=== PATIENT | female | born 1940 | race American Indian/Alaskan Native ===

== ENCOUNTER 2017-04-27 16:05 | Emergency (ER) | payer MEDICARE ==
[2017-04-27 17:29] LABS: Basophils % (Auto) 0.3 % (0.0-1.8); Eosinophils % (Auto) 9.3 % (0.0-4.3); Hematocrit 27.9 % (30.3-42.9); Hemoglobin 8.9 gm/dl (10.1-14.3); Mean Corpuscular HGB Conc 32 % (30-34); Mean Corpuscular Hemoglobin 26 pg (28-32); Mean Corpuscular Volume 81 fl (79-97); Platelet Count 155 K/mm3 (140-440); Red Blood Count 3.43 M/mm3 (3.65-5.03); Red Cell Distribution Width 16.4 % (13.2-15.2); White Blood Count 4.3 K/mm3 (4.5-11.0)
[2017-04-27 17:32] LABS: Albumin/Globulin Ratio 1.6 %; BUN/Creatinine Ratio 16.66; Bilirubin,Total 0.2 mg/dL (0.1-1.2); Calcium 8.2 mg/dL (8.4-10.2); Chloride 106.5 mmol/L (98-107); Potassium 5.1 mmol/L (3.6-5.0); Total Protein 6.5 g/dL (6.3-8.2)
[2017-04-27 17:41] LABS: INR 1.04 (0.87-1.13); Partial Thromboplastin Time 28.9 Sec. (24.2-36.6)
[2017-04-27] MEDS ORDERED: ULTRAM PO ONE (18:59)
[2017-04-27] MEDS ORDERED: ULTRAM ONE (18:59)
[2017-04-27] MEDS ORDERED: KIONEX PO ONE (21:00)
--- NOTE | 2017-04-27 21:13 | Emergency Department Report ---
ED Medical Clearance HPI - General Chief complaint: Medical Clearance Stated complaint: GENERAL SICKNESS Time Seen by Provider: 04/27/17 18:59 Source: EMS Mode of arrival: Ambulatory - History of Present Illness Initial comments: 76 yo female with PMHX of CKD, HTN, COPD CHF into the emergency department for medical clearance. States she was at her PCPs office early today when she was informed that her potassium was " high" and states she does not recall the exact number, she was told to follow-up in the emergency room as soon as possible. Currently patient has no complaints. Patient denies fevers/chills, chest pain, shortness of breath, abdominal pain, nausea/vomiting/diarrhea. Home medications: Home Medications Medication Instructions Recorded Confirmed Last Taken RX: Mirtazapine [Remeron] 15 mg PO QHS PRN 04/27/17 04/27/17 Unknown RX: traMADol [Ultram 50 MG tab] 50 mg PO PRN PRN 04/27/17 04/27/17 Unknown Previous Rx's Medication Instructions Recorded Last Taken Type RX: ALBUTEROL NEB's [Proventil 2.5 mg IH Q4HRT PRN #30 nebu 04/19/17 Unknown Rx 0.083% NEBS] RX: Budesonide [Pulmicort Respules] 0.25 mg IH Q12HRT #1 box 04/19/17 Unknown Rx RX: Pantoprazole [Protonix TAB] 40 mg PO QDAY #30 tablet 04/19/17 04/26/17 Rx Sodium Polystyrene Sulfonate 30 gm PO DAILY #2 powd.pack 04/27/17 Unknown Rx [Kalexate] Allergies/Adverse reactions: Allergies Allergy/AdvReac Type Severity Reaction Status Date / Time aspirin Allergy Hives Verified 04/16/17 13:55 Penicillins Allergy Hives Verified 04/16/17 13:55 Sulfa (Sulfonamide Allergy Hives Verified 04/16/17 13:55 Antibiotics) ED Review of Systems ROS: Stated complaint: GENERAL SICKNESS Other details as noted in HPI Constitutional: denies: chills, fever Eyes: denies: eye pain, eye discharge, vision change ENT: denies: ear pain, throat pain Respiratory: denies: cough, shortness of breath, wheezing Cardiovascular: denies: chest pain, palpitations Endocrine: no symptoms reported Gastrointestinal: denies: abdominal pain, nausea, diarrhea Genitourinary: denies: urgency, dysuria, discharge Musculoskeletal: denies: back pain, joint swelling, arthralgia Skin: denies: rash, lesions Neurological: denies: headache, weakness, paresthesias Psychiatric: denies: anxiety, depression Hematological/Lymphatic: denies: easy bleeding, easy bruising ED Past Medical Hx - Past Medical History Hx Hypertension: Yes Hx CVA: Yes (x 2) Hx Heart Attack/AMI: Yes (2010) Hx Congestive Heart Failure: No Hx Diabetes: No Hx Renal Disease: Yes Hx Arthritis: Yes Hx Asthma: Yes Hx COPD: Yes Hx HIV: No Additional medical history: Chronic Bronchitis - Surgical History Past Surgical History?: Yes Hx Coronary Stent: No Hx Open Heart Surgery: No Hx Pacemaker: Yes Hx Internal Defibrillator: No Hx Cholecystectomy: No Hx Appendectomy: No Hx Breast Surgery: No Additional Surgical History: Left Knee Surgery , demand pacemaker (90's). Hyst. catarac removal in both eyes - Social History Smoking Status: Former Smoker Substance Use Type: None - Medications Home Medications: Home Medications Medication Instructions Recorded Confirmed Last Taken Type RX: ALBUTEROL NEB's [Proventil 2.5 mg IH Q4HRT PRN #30 nebu 04/19/17 04/27/17 Unknown Rx 0.083% NEBS] RX: Budesonide [Pulmicort Respules] 0.25 mg IH Q12HRT #1 box 04/19/17 04/27/17 Unknown Rx RX: Pantoprazole [Protonix TAB] 40 mg PO QDAY #30 tablet 04/19/17 04/27/1704/26 Rx RX: Mirtazapine [Remeron] 15 mg PO QHS PRN 04/27/17 04/27/17 Unknown History RX: traMADol [Ultram 50 MG tab] 50 mg PO PRN PRN 04/27/17 04/27/17 Unknown History Sodium Polystyrene Sulfonate 30 gm PO DAILY #2 powd.pack 04/27/17 Unknown Rx [Kalexate] ED Physical Exam - General Limitations: No Limitations General appearance: alert, in no apparent distress - Head Head exam: Present: atraumatic, normocephalic - Eye Eye exam: Present: normal appearance - ENT ENT exam: Present: mucous membranes moist - Neck Neck exam: Present: normal inspection - Respiratory Respiratory exam: Present: normal lung sounds bilaterally. Absent: respiratory distress - Cardiovascular Cardiovascular Exam: Present: regular rate, normal rhythm. Absent: systolic murmur, diastolic murmur, rubs, gallop - GI/Abdominal GI/Abdominal exam: Present: soft, normal bowel sounds - Extremities Exam Extremities exam: Present: normal inspection - Back Exam Back exam: Present: normal inspection - Neurological Exam Neurological exam: Present: alert, oriented X3 - Psychiatric Psychiatric exam: Present: normal affect, normal mood - Skin Skin exam: Present: warm, dry, intact, normal color. Absent: rash ED Course Vital Signs 04/27/17 04/27/17 04/27/17 16:14 16:16 16:18 Temperature Pulse Rate 80 82 85 Respiratory 19 13 18 Rate Blood Pressure Blood Pressure [Right] O2 Sat by Pulse 97 98 Oximetry 04/27/17 04/27/17 04/27/17 16:20 16:22 16:24 Temperature Pulse Rate 84 82 88 Respiratory 17 22 26 H Rate Blood Pressure Blood Pressure [Right] O2 Sat by Pulse 97 98 97 Oximetry 04/27/17 04/27/17 04/27/17 16:26 16:28 16:30 Temperature Pulse Rate 80 82 76 Respiratory 18 18 26 H Rate Blood Pressure Blood Pressure [Right] O2 Sat by Pulse 97 97 98 Oximetry 04/27/17 04/27/17 04/27/17 16:32 16:34 16:36 Temperature Pulse Rate 77 76 94 H Respiratory 20 21 24 Rate Blood Pressure Blood Pressure [Right] O2 Sat by Pulse 97 98 Oximetry 04/27/17 04/27/17 04/27/17 16:38 16:40 16:41 Temperature Pulse Rate 80 86 Respiratory 13 19 24 Rate Blood Pressure 115/54 115/54 Blood Pressure [Right] O2 Sat by Pulse 95 99 98 Oximetry 04/27/17 04/27/17 04/27/17 16:42 16:44 16:46 Temperature Pulse Rate 85 74 Respiratory 23 26 H 28 H Rate Blood Pressure 115/54 115/54 115/54 Blood Pressure [Right] O2 Sat by Pulse 99 99 98 Oximetry 04/27/17 04/27/17 04/27/17 16:48 16:50 16:52 Temperature Pulse Rate 99 H 121 H 97 H Respiratory 21 29 H 27 H Rate Blood Pressure 115/54 115/54 115/54 Blood Pressure [Right] O2 Sat by Pulse 98 97 99 Oximetry 04/27/17 04/27/17 04/27/17 16:54 16:56 16:58 Temperature Pulse Rate 73 75 Respiratory 22 24 17 Rate Blood Pressure 115/54 115/54 115/54 Blood Pressure [Right] O2 Sat by Pulse 99 99 99 Oximetry 04/27/17 04/27/17 04/27/17 17:00 17:01 17:02 Temperature Pulse Rate 75 72 75 Respiratory 19 22 17 Rate Blood Pressure 115/54 103/51 103/51 Blood Pressure [Right] O2 Sat by Pulse 99 100 99 Oximetry 04/27/17 04/27/17 04/27/17 17:04 17:06 17:08 Temperature Pulse Rate 72 74 Respiratory 26 H 19 36 H Rate Blood Pressure 103/51 103/51 103/51 Blood Pressure [Right] O2 Sat by Pulse 99 99 98 Oximetry 04/27/17 04/27/17 04/27/17 17:10 17:12 17:14 Temperature Pulse Rate Respiratory 13 19 20 Rate Blood Pressure 115/54 115/54 115/54 Blood Pressure [Right] O2 Sat by Pulse 99 100 100 Oximetry 04/27/17 04/27/17 04/27/17 17:16 17:18 17:20 Temperature Pulse Rate Respiratory 21 24 25 H Rate Blood Pressure 115/54 115/54 115/54 Blood Pressure [Right] O2 Sat by Pulse 100 100 100 Oximetry 04/27/17 04/27/17 04/27/17 17:22 17:24 17:25 Temperature 98.4 F Pulse Rate Respiratory 23 17 Rate Blood Pressure 115/54 115/54 Blood Pressure [Right] O2 Sat by Pulse 99 100 Oximetry 04/27/17 04/27/17 04/27/17 17:26 17:28 17:30 Temperature Pulse Rate Respiratory 22 23 23 Rate Blood Pressure 115/54 115/54 115/54 Blood Pressure [Right] O2 Sat by Pulse 100 100 100 Oximetry 04/27/17 04/27/17 04/27/17 17:32 17:34 17:36 Temperature Pulse Rate 144 H Respiratory 22 22 30 H Rate Blood Pressure 115/54 115/54 115/54 Blood Pressure [Right] O2 Sat by Pulse 100 100 99 Oximetry 04/27/17 04/27/17 04/27/17 17:38 17:40 17:42 Temperature Pulse Rate Respiratory 19 20 23 Rate Blood Pressure 115/54 115/54 115/54 Blood Pressure [Right] O2 Sat by Pulse 100 100 100 Oximetry 04/27/17 04/27/17 04/27/17 17:44 17:46 17:48 Temperature Pulse Rate Respiratory 21 21 22 Rate Blood Pressure 115/54 115/54 115/54 Blood Pressure [Right] O2 Sat by Pulse 100 100 99 Oximetry 04/27/17 04/27/17 04/27/17 17:50 17:52 17:54 Temperature Pulse Rate 92 H 82 90 Respiratory 18 24 30 H Rate Blood Pressure 115/54 115/54 115/54 Blood Pressure [Right] O2 Sat by Pulse 100 100 98 Oximetry 04/27/17 04/27/17 04/27/17 17:56 17:58 18:48 Temperature Pulse Rate 88 94 H 86 Respiratory 23 28 H 25 H Rate Blood Pressure 115/54 115/54 121/70 Blood Pressure [Right] O2 Sat by Pulse 99 98 100 Oximetry 04/27/17 04/27/17 04/27/17 18:50 18:52 18:54 Temperature Pulse Rate 89 82 Respiratory 22 29 H 25 H Rate Blood Pressure 121/70 121/70 121/70 Blood Pressure [Right] O2 Sat by Pulse 95 98 97 Oximetry 04/27/17 04/27/17 04/27/17 18:56 18:58 19:00 Temperature Pulse Rate 101 H 78 Respiratory 27 H 32 H 38 H Rate Blood Pressure 121/70 121/70 106/48 Blood Pressure [Right] O2 Sat by Pulse 100 99 99 Oximetry 04/27/17 04/27/17 04/27/17 19:02 19:04 19:06 Temperature Pulse Rate 115 H 81 Respiratory 38 H 21 26 H Rate Blood Pressure 106/48 103/51 103/51 Blood Pressure [Right] O2 Sat by Pulse 99 98 100 Oximetry 04/27/17 04/27/17 04/27/17 19:08 19:10 19:12 Temperature Pulse Rate 81 79 78 Respiratory 25 H 24 24 Rate Blood Pressure 103/51 103/51 103/51 Blood Pressure [Right] O2 Sat by Pulse 100 100 100 Oximetry 04/27/17 04/27/17 04/27/17 19:14 19:16 19:20 Temperature Pulse Rate 79 88 82 Respiratory 23 18 23 Rate Blood Pressure 103/51 103/51 103/51 Blood Pressure [Right] O2 Sat by Pulse 100 99 98 Oximetry 04/27/17 04/27/17 04/27/17 19:22 19:24 19:28 Temperature Pulse Rate 82 83 92 H Respiratory 19 25 H 24 Rate Blood Pressure 103/51 103/51 103/51 Blood Pressure [Right] O2 Sat by Pulse 99 99 99 Oximetry 04/27/17 04/27/17 04/27/17 19:30 19:32 19:34 Temperature Pulse Rate 95 H 96 H 88 Respiratory 16 22 25 H Rate Blood Pressure 103/51 103/51 103/51 Blood Pressure [Right] O2 Sat by Pulse 100 99 99 Oximetry 04/27/17 04/27/17 04/27/17 19:36 19:38 19:40 Temperature Pulse Rate 91 H 102 H 100 H Respiratory 19 19 21 Rate Blood Pressure 103/51 103/51 103/51 Blood Pressure [Right] O2 Sat by Pulse 99 99 99 Oximetry 04/27/17 04/27/17 04/27/17 19:42 19:44 19:46 Temperature Pulse Rate 101 H 98 H 97 H Respiratory 22 24 22 Rate Blood Pressure 103/51 103/51 103/51 Blood Pressure [Right] O2 Sat by Pulse 98 98 99 Oximetry 04/27/17 04/27/17 04/27/17 19:48 19:50 19:52 Temperature Pulse Rate 89 90 92 H Respiratory 26 H 25 H 19 Rate Blood Pressure 103/51 103/51 103/51 Blood Pressure [Right] O2 Sat by Pulse 100 99 99 Oximetry 04/27/17 04/27/17 04/27/17 19:54 19:56 19:58 Temperature Pulse Rate 90 88 86 Respiratory 25 H 17 16 Rate Blood Pressure 103/51 103/51 103/51 Blood Pressure [Right] O2 Sat by Pulse 100 90 99 Oximetry 04/27/17 04/27/17 04/27/17 20:00 20:02 20:03 Temperature Pulse Rate 91 H 91 H Respiratory 24 17 20 Rate Blood Pressure 103/51 103/51 Blood Pressure [Right] O2 Sat by Pulse 99 99 Oximetry 04/27/17 04/27/17 04/27/17 20:04 20:06 20:08 Temperature Pulse Rate 87 93 H 86 Respiratory 18 22 18 Rate Blood Pressure 126/62 126/62 126/62 Blood Pressure [Right] O2 Sat by Pulse 97 99 98 Oximetry 04/27/17 04/27/17 04/27/17 20:12 20:14 20:16 Temperature Pulse Rate 94 H 92 H 93 H Respiratory 17 15 14 Rate Blood Pressure 126/62 126/62 126/62 Blood Pressure [Right] O2 Sat by Pulse 98 98 98 Oximetry 04/27/17 04/27/17 04/27/17 20:18 20:20 20:22 Temperature Pulse Rate 93 H 87 90 Respiratory 16 12 17 Rate Blood Pressure 126/62 126/62 126/62 Blood Pressure [Right] O2 Sat by Pulse 97 96 97 Oximetry 04/27/17 04/27/17 04/27/17 20:24 20:26 20:28 Temperature Pulse Rate 92 H 93 H 95 H Respiratory 16 15 17 Rate Blood Pressure 126/62 126/62 126/62 Blood Pressure [Right] O2 Sat by Pulse 94 94 93 Oximetry 04/27/17 04/27/17 04/27/17 20:30 21:20 21:28 Temperature 98.7 F Pulse Rate 93 H 86 94 H Respiratory 22 20 16 Rate Blood Pressure 126/62 Blood Pressure 115/60 97/46 [Right] O2 Sat by Pulse 91 98 98 Oximetry - Reevaluation(s) Reevaluation #1: 04/27/17 21:09 Dr Melendez nephrology states pt labs are at baseline, he will order blood work for her to have repeated outpt on Sunday, patient agrees to this plan 04/27/17 21:12 ED Medical Decision Making - Lab Data Result diagrams: 04/27/17 16:39 04/27/17 16:39 - EKG Data -: EKG Interpreted by Me EKG shows normal: sinus rhythm (86), axis (NEEGATIVE ), intervals (QTC:471), QRS complexes, ST-T waves (no change) - EKG Data When compared to previous EKG there are: no significant change, other (Right BBB ) - Radiology Data Radiology results: image reviewed - Medical Decision Making 76 yo female with chronic kidney disease, COPD presenting to ED for lab check. Pt potassium is slightly elevated therefor will start with several days of Kayexyalte. Pt will return for 72 hour lab recheck. She has no complaints and is stable for dc home ED Disposition Clinical Impression: Hyperkalemia, CKD (chronic kidney disease) stage 3, GFR 30-59 ml/min Disposition: DC-01 TO HOME OR SELFCARE Is pt being admited?: No Does the pt Need Aspirin: No Condition: Stable Instructions: Hyperkalemia (ED) Additional Instructions: Please follow up in outpatient lab at [facility] on this Sunday to repeat chemistry panel. Dr. Melendez has ordered this for you. Prescriptions: Sodium Polystyrene Sulfonate [Kalexate] 30 gm PO DAILY #2 powd.pack Referrals: PRIMARY CAREMD [Primary Care Provider] - 2-3 Days BRAD MELENDEZ MD [Staff Physician] - 2-3 Days Forms: Work/School Release Form(ED)
[2017-04-27 21:29] VITALS: BP 97/46
== END 2017-04-27 21:40 | disposition home or self-care (01) ==
LOC: ED 16:05
DX: E87.5 Hyperkalemia (principal); I12.9 Hypertensive chronic kidney disease with stage 1 through stage 4 chronic kidney disease, or unspecified chronic kidney disease; N18.3 Chronic kidney disease, stage 3 (moderate); I25.2 Old myocardial infarction; M19.90 Unspecified osteoarthritis, unspecified site; J45.909 Unspecified asthma, uncomplicated; J44.9 Chronic obstructive pulmonary disease, unspecified; J42 Unspecified chronic bronchitis; I50.9 Heart failure, unspecified; Z95.0 Presence of cardiac pacemaker; Z87.891 Personal history of nicotine dependence; Z88.6 Allergy status to analgesic agent; Z88.0 Allergy status to penicillin; Z88.2 Allergy status to sulfonamides
CPT/HCPCS: 36415; 80053; 82140; 83735; 83880; 85025; 85610; 85730; 86850; 86900; 86901; 93005; 93010

== ENCOUNTER 2017-05-14 11:29 | Outpatient (CLI) | payer MEDICARE ==
[2017-05-14 12:07] LABS: BUN/Creatinine Ratio 10.76; Calcium 8.8 mg/dL (8.4-10.2); Chloride 103.4 mmol/L (98-107); Potassium 5.1 mmol/L (3.6-5.0)
== END 2017-05-14 11:30 | disposition home or self-care (01) ==
LOC: LAB 11:29
PROVIDERS: ATTEND Internal Medicine Nephrology
DX: I12.9 Hypertensive chronic kidney disease with stage 1 through stage 4 chronic kidney disease, or unspecified chronic kidney disease (principal); I50.9 Heart failure, unspecified; N18.3 Chronic kidney disease, stage 3 (moderate); D63.1 Anemia in chronic kidney disease; E78.00 Pure hypercholesterolemia, unspecified; I48.91 Unspecified atrial fibrillation; J44.9 Chronic obstructive pulmonary disease, unspecified; J45.909 Unspecified asthma, uncomplicated; F32.9 Major depressive disorder, single episode, unspecified; F41.9 Anxiety disorder, unspecified; Z87.891 Personal history of nicotine dependence
CPT/HCPCS: 36415; 80048

== ENCOUNTER 2017-07-26 11:00 | Outpatient (CLI) | payer MEDICARE ==
[2017-07-26 11:30] LABS: Calcium 8.5 mg/dL (8.4-10.2); Chloride 103.8 mmol/L (98-107); Potassium 4.3 mmol/L (3.6-5.0)
== END 2017-07-26 11:01 | disposition home or self-care (01) ==
LOC: LAB 11:00
PROVIDERS: ATTEND Internal Medicine Nephrology
DX: I13.0 Hypertensive heart and chronic kidney disease with heart failure and stage 1 through stage 4 chronic kidney disease, or unspecified chronic kidney disease (principal); N18.3 Chronic kidney disease, stage 3 (moderate); I50.9 Heart failure, unspecified; J44.9 Chronic obstructive pulmonary disease, unspecified; E78.00 Pure hypercholesterolemia, unspecified; Z87.891 Personal history of nicotine dependence
CPT/HCPCS: 36415; 80048

== ENCOUNTER 2017-08-07 08:15 | Inpatient (IN) | payer MEDICARE ==
--- NOTE | 2017-08-07 09:19 | XRay Report ---
PORTABLE CHEST INDICATION: Shortness of breath. COMPARISON: 04/16/2017 FINDINGS: Portable, frontal chest radiograph demonstrates normal cardiomediastinal silhouette. Slightly prominent lung markings centrally. Stable aortic knob calcifications, left-sided dual chamber pacemaker and demineralized bones with few degenerative changes. CONCLUSION: No acute chest process or significant interval change, as described. Thank you for the opportunity to participate in this patient's care.
[2017-08-07 09:32] LABS: Basophils % (Auto) 0.6 % (0.0-1.8); Eosinophils % (Auto) 10.7 % (0.0-4.3); Hematocrit 28.6 % (30.3-42.9); Hemoglobin 9.3 gm/dl (10.1-14.3); Mean Corpuscular HGB Conc 33 % (30-34); Mean Corpuscular Hemoglobin 27 pg (28-32); Mean Corpuscular Volume 83 fl (79-97); Platelet Count 161 K/mm3 (140-440); Red Blood Count 3.46 M/mm3 (3.65-5.03); Red Cell Distribution Width 15.6 % (13.2-15.2); White Blood Count 3.3 K/mm3 (4.5-11.0)
[2017-08-07 09:42] LABS: Anion Gap 16 mmol/L; BUN/Creatinine Ratio 10; Blood Urea Nitrogen 19 mg/dL (7-17); Calcium 8.8 mg/dL (8.4-10.2); Carbon Dioxide 31 mmol/L (22-30); Chloride 100.3 mmol/L (98-107); Glucose 99 mg/dL (65-100); Potassium 4.6 mmol/L (3.6-5.0); Sodium 143 mmol/L (137-145)
[2017-08-07] MEDS ORDERED: MORPHINE IV ONE (11:02)
[2017-08-07] MEDS ORDERED: DUONEB *Not for PRN Use IH ONE (11:02)
--- NOTE | 2017-08-07 11:25 | Emergency Department Report ---
HPI - General Chief Complaint: Dyspnea/Respdistress Time Seen by Provider: 08/07/17 10:52 - HPI HPI: This is a 77 year-old female presents to the emergency department by EMS from home with the complaints of a headache with dizziness and some shortness of breath. She says that she has a "splitting headache" to the left side of the head and towards the back that has been going on intermittently for the past 3 months but more recently for the past 2 or 3 days. Today she felt as if she was dizzy and weak but denies any vision change , slurred speech, chest pain or any other neurological deficits. She says that her shortness of breath is acute on chronic and most likely related to her COPD. She uses 3 L oxygen via nasal cannula 24 hours a day. She tried taking a tramadol for her headache and/or symptoms without any relief. She has a past medical history of chronic kidney disease, hypertension, COPD, CHF, previous CVA 2 without residual deficits, coronary artery disease with previous [place]. Her primary care physician is Dr. Julio Wyatt. No recent travel or sick contacts at home. ED Past Medical Hx - Past Medical History Previous Medical History?: Yes Hx Hypertension: Yes Hx CVA: Yes (x 2) Hx Heart Attack/AMI: Yes (2009) Hx Congestive Heart Failure: No Hx Diabetes: No Hx Renal Disease: Yes Hx Arthritis: Yes Hx Asthma: Yes Hx COPD: Yes Hx HIV: No Additional medical history: Chronic Bronchitis - Surgical History Past Surgical History?: Yes Hx Coronary Stent: No Hx Open Heart Surgery: No Hx Pacemaker: Yes Hx Internal Defibrillator: No Hx Cholecystectomy: No Hx Appendectomy: No Hx Breast Surgery: No Additional Surgical History: Left Knee Surgery , demand pacemaker (90's). Hyst. catarac removal in both eyes - Social History Smoking Status: Former Smoker Substance Use Type: None - Medications Home Medications: Home Medications Medication Instructions Recorded Confirmed Last Taken Type ALBUTEROL NEB's [Proventil 0.083% 2.5 mg IH Q4HRT PRN #30 nebu 04/19/17 Unknown Rx NEBS] Budesonide [Pulmicort Respules] 0.25 mg IH Q12HRT #1 box 04/19/17 08/07/17 Unknown Rx Pantoprazole [Protonix TAB] 40 mg PO QDAY #30 tablet 04/19/17 08/07/17 04/26/17 Rx Mirtazapine [Remeron] 30 mg PO QHS PRN 04/27/17 08/07/17 Unknown History traMADol [Ultram 50 MG tab] 50 - 100 mg PO BID PRN 04/27/17 08/07/17 Unknown History Sodium Polystyrene Sulfonate 8 tsp PO Q48H 08/07/17 08/07/17 Unknown History [Sodium Polystyrene Sulfonate] ED Review of Systems ROS: Stated complaint: NIRAV Other details as noted in HPI Comment: All other systems reviewed and negative Constitutional: denies: chills, fever Eyes: denies: eye pain, eye discharge, vision change ENT: denies: ear pain, throat pain Respiratory: cough, shortness of breath, wheezing Cardiovascular: denies: chest pain, edema Gastrointestinal: denies: abdominal pain, nausea, diarrhea Genitourinary: denies: urgency, dysuria, discharge Musculoskeletal: denies: back pain, joint swelling, arthralgia Skin: denies: rash, lesions Neurological: headache, other (dizziness). denies: numbness, paresthesias, confusion Physical Exam - Physical Exam Vital Signs: Vital Signs 08/07/17 08/07/17 08/07/17 09:21 09:25 09:27 Temperature 97.9 F Pulse Rate 88 88 Respiratory 17 Rate Blood Pressure Blood Pressure 128/63 [Left] O2 Sat by Pulse 96 95 Oximetry 08/07/17 08/07/17 08/07/17 09:30 10:00 10:30 Temperature Pulse Rate Respiratory Rate Blood Pressure 126/67 114/79 131/77 Blood Pressure [Left] O2 Sat by Pulse Oximetry Physical Exam: GENERAL: The patient is well-developed well-nourished. HENT: Normocephalic. Atraumatic. Patient has moist mucous membranes. EYES: Extraocular motions are intact. Pupils equal reactive to light bilaterally. There is some fatigable horizontal nystagmus. NECK: Supple. Trachea is midline. CHEST/LUNGS: Clear to auscultation. There is no respiratory distress noted. HEART/CARDIOVASCULAR: Regular. There is no tachycardia. There is no gallop rub or murmur. ABDOMEN: Abdomen is soft, nontender. Patient has normal bowel sounds. There is no abdominal distention. SKIN: Skin is warm and dry. NEURO: The patient is awake, alert, and oriented. The patient is cooperative. The patient has no focal neurologic deficits. The patient has normal speech. Cranial nerves II through XII grossly intact. No pronator drift. No dysmetria. MUSCULOSKELETAL: There is no tenderness or deformity. There is no limitation range of motion. There is no evidence of acute injury. ED Course Vital Signs 08/07/17 08/07/17 08/07/17 09:21 09:25 09:27 Temperature 97.9 F Pulse Rate 88 88 Respiratory 17 Rate Blood Pressure Blood Pressure 128/63 [Left] O2 Sat by Pulse 96 95 Oximetry 08/07/17 08/07/17 08/07/17 09:30 10:00 10:30 Temperature Pulse Rate Respiratory Rate Blood Pressure 126/67 114/79 131/77 Blood Pressure [Left] O2 Sat by Pulse Oximetry ED Medical Decision Making - Lab Data Result diagrams: 08/07/17 08:58 08/07/17 08:58 - EKG Data -: EKG Interpreted by Me EKG shows normal: sinus rhythm, axis (LAD), intervals, QRS complexes (RBBB), ST- T waves Rate: normal - EKG Data When compared to previous EKG there are: no significant change Interpretation: unchanged when compared t (04/2017) - Radiology Data Radiology results: report reviewed, image reviewed interpreted by me: There is some hyperinflation of the lungs and flattening of the diaphragms. No obvious pneumonia or pleural effusions. CT scan of head without IV contrast: History: Headache. Findings: The ventricles are normal in size and midline in location. Bilateral basal ganglia calcification without interval change. Bilateral lacunar infarcts. No interval change. No evidence acute ischemia, hemorrhage or mass. No extra-axial fluid collection. Normal brainstem and cerebellum. Impression: No acute intracranial abnormality. - Medical Decision Making 77-year-old female presents with some shortness of breath as well as a headache and some dizziness. On physical exam she does not appear to have any focal, motor or sensory deficits and her cranial nerves are intact. CT does not show any bleed, shift, mass or any acute process. She has some anemia, renal sufficiency and these labs appear consistent with previous visits. She does have an elevated an equivocal d-dimer so a ventilation perfusion scan was done that was low probability for pulmonary embolus. The patient continues to complain of the headache and dizziness despite pain medication. For this reason she will be admitted to hospital for further evaluation and treatment and has been accepted for admission by the hospitalist, Dr. Smith. - Differential Diagnosis TIA, brain bleed, vertigo, COPD, PE, asthma Critical Care Time: No Critical care attestation.: If time is entered above; I have spent that time in minutes in the direct care of this critically ill patient, excluding procedure time. ED Disposition Clinical Impression: Dizziness, COPD exacerbation Headache Qualifiers: Headache type: unspecified Headache chronicity pattern: unspecified pattern Intractability: intractable Qualified Code(s): R51 - Headache Chronic kidney disease Qualifiers: Chronic kidney disease stage: unspecified stage Qualified Code(s): N18.9 - Chronic kidney disease, unspecified Disposition: OP ADMIT IP TO THIS HOSP Is pt being admited?: Yes Condition: Stable
--- NOTE | 2017-08-07 12:20 | Cat Scan Report ---
CT scan of head without IV contrast: History: Headache. Findings: The ventricles are normal in size and midline in location. Bilateral basal ganglia calcification without interval change. Bilateral lacunar infarcts. No interval change. No evidence acute ischemia, hemorrhage or mass. No extra-axial fluid collection. Normal brainstem and cerebellum. Impression: No acute intracranial abnormality.
--- NOTE | 2017-08-07 14:33 | History and Physical Report ---
History of Present Illness Chief complaint: Its hard for me to breathe History of present illness: 77 YO Female with HTN, CVA, OH, OA, Asthma, COPD on 3L Home Oxygen, CHF, presents to ED for evaluation. Pt states that she has experienced shortness of breath for the past 2 weeks with worsening symptoms over the past 2 days. Pt acknowledges productive cough of clear sputum with increased sputum production. Pt symptoms not relieved with increased oxygen, and breathing treatments. Pt also complains of a splitting headache for the past 3 months with worsening symptoms over the past 3 days. Pt states that the pain 1s 6-8/10, localized to the left side of her head, intermittent and is associated with dizziness and weakness. Pt denies vision changes, or sudden vision loss in either eye, trauma , BRBPR, Syncope, Lacrimation, oloss of bowel/bladder continence, vomiting, Fall , recent ill contacts, or skin rashes. Past History Past Medical History: acute OH, arthritis, COPD, heart failure, hypertension, stroke Past Surgical History: cataract removal, hysterectomy, total knee replacement, Other (Pacemaker, ) Social history: . denies: smoking, alcohol abuse, prescription drug abuse, IV drug use Family history: diabetes, hypertension Medications and Allergies Allergies Allergy/AdvReac Type Severity Reaction Status Date / Time aspirin Allergy Hives Verified 04/16/17 13:55 Penicillins Allergy Hives Verified 04/16/17 13:55 Sulfa (Sulfonamide Allergy Hives Verified 04/16/17 13:55 Antibiotics) Home Medications Medication Instructions Recorded Confirmed Last Taken Type ALBUTEROL NEB's [Proventil 0.083% 2.5 mg IH Q4HRT PRN #30 nebu 04/19/17 Unknown Rx NEBS] Budesonide [Pulmicort Respules] 0.25 mg IH Q12HRT #1 box 04/19/17 08/07/17 Unknown Rx Pantoprazole [Protonix TAB] 40 mg PO QDAY #30 tablet 04/19/17 08/07/17 04/26/17 Rx Mirtazapine [Remeron] 30 mg PO QHS PRN 04/27/17 08/07/17 Unknown History traMADol [Ultram 50 MG tab] 50 - 100 mg PO BID PRN 04/27/17 08/07/17 Unknown History Sodium Polystyrene Sulfonate 8 tsp PO Q48H 08/07/17 08/07/17 Unknown History [Sodium Polystyrene Sulfonate] Review of Systems Constitutional: other (headache), no weight loss, no weight gain, no fever, no chills, no sweats Ears, nose, mouth and throat: no ear pain, no ear discharge, no tinnitis, no decreased hearing, no nose pain, no nasal congestion, no nasal discharge, no sinus pressure, no sinus pain Breasts: no change in shape, no swelling, no mass Cardiovascular: shortness of breath, no chest pain, no orthopnea, no palpitations, no rapid/irregular heart beat, no edema, no syncope Respiratory: cough, cough with sputum, excessive sputum, shortness of breath, no hemoptysis Gastrointestinal: no abdominal pain, no nausea, no vomiting, no diarrhea Genitourinary Female: no pelvic pain, no flank pain, no menorrhagia, no dysuria , no urinary frequency, no urgency Rectal: no pain, no incontinence, no bleeding Musculoskeletal: no neck stiffness, no neck pain, no shooting arm pain, no arm numbness/tingling, no low back pain Integumentary: no rash, no pruritis, no redness, no sores Neurological: no transient paralysis, no paralysis, no weakness, no parathesias , no numbness, no tingling, no seizures, no syncope, no tremors Psychiatric: no anxiety, no memory loss, no change in sleep habits, no sleep disturbances, no insomnia, no hypersomnia, no change in appetite, no change in libido Endocrine: no cold intolerance, no heat intolerance, no polyphagia, no excessive thirst, no polydipsia, no polyuria, no nocturia Hematologic/Lymphatic: no easy bruising, no easy bleeding Allergic/Immunologic: no urticaria, no allergic rhinitis, no wheezing Exam - Constitutional Vitals: Temp Pulse Resp BP Pulse Ox 97.9 F 87 17 128/79 98 08/07/17 09:25 08/07/17 14:13 08/07/17 14:13 08/07/17 14:00 08/07/17 14:13 General appearance: Present: mild distress - EENT Eyes: Present: PERRL ENT: hearing intact, clear oral mucosa - Neck Neck: Present: supple, normal ROM - Respiratory Respiratory effort: labored Respiratory: bilateral: diminished - Extremities Extremities: pulses symmetrical, No edema Extremity abnormal: edema Peripheral Pulses: within normal limits - Abdominal General gastrointestinal: Present: soft, non-tender, non-distended, normal bowel sounds Female genitourinary: Present: normal - Integumentary Integumentary: Present: clear, warm, dry - Musculoskeletal Musculoskeletal: gait normal, strength equal bilaterally - Psychiatric Psychiatric: appropriate mood/affect, intact judgment & insight - Neurologic Neurologic: CNII-XII intact, moves all extremities Results - Labs CBC & Chem 7: 08/07/17 08:58 08/07/17 08:58 Labs: Abnormal lab results 08/07/17 08/07/17 08/07/17 Range/Units 08:58 08:58 11:16 WBC 3.3 L (4.5-11.0) K/mm3 RBC 3.46 L (3.65-5.03) M/mm3 Hgb 9.3 L (10.1-14.3) gm/dl Hct 28.6 L (30.3-42.9) % MCH 27 L (28-32) pg RDW 15.6 H (13.2-15.2) % [place] % (Auto) 7.9 H (0.0-7.3) % Eos % (Auto) 10.7 H (0.0-4.3) % Lymph # 0.7 L (1.2-5.4) K/mm3 D-Dimer 749.90 H (0-234) ng/mlDDU Carbon Dioxide 31 H (22-30) mmol/L BUN 19 H (7-17) mg/dL Creatinine 1.9 H (0.7-1.2) mg/dL Assessment and Plan - Patient Problems (1) Acute and chronic respiratory failure Current Visit: No Status: Acute Qualifiers: Respiratory failure complication: hypoxia Qualified Code(s): J96.21 - Acute and chronic respiratory failure with hypoxia Plan to address problem: supplemental oxygen, nebs, aspiration precautions, IV abx, steroids, NIPPV as clinically indicated. (2) COPD exacerbation Onset Date: 06/11/16 Current Visit: Yes Status: Acute Plan to address problem: IV steroid, IV abx, supportive care, pulmonary toilet, (3) Acute renal failure (ARF) Onset Date: 06/11/16 Current Visit: No Status: Acute Qualifiers: Acute renal failure type: unspecified Qualified Code(s): N17.9 - Acute kidney failure, unspecified Plan to address problem: IVF resuscitation, supportive care, monitor uop q shift, repeat bmp (4) HTN (hypertension) Current Visit: Yes Status: Acute Qualifiers: Hypertension type: H Plan to address problem: monitor BP q shift, continue current therapy (5) CHF (congestive heart failure) Current Visit: Yes Status: Acute Qualifiers: Congestive heart failure type: diastolic Congestive heart failure chronicity: acute on chronic Qualified Code(s): I50.33 - Acute on chronic diastolic (congestive) heart failure Plan to address problem: fluid restriction, remote telemetry, low sodium diet, monitor uop q shift to ensure negative fluid balance. (6) DVT prophylaxis Current Visit: No Status: Acute
--- NOTE | 2017-08-07 14:36 | Nuclear Medicine Report ---
VENTILATION PERFUSION SCAN INDICATION: Shortness of breath, elevated d-dimer. COMPARISON: None similar. FINDINGS: VQ scan performed in anterior, posterior, lateral and oblique projections. 5 mCi of technetium 99m MAA was used for the perfusion assessment while 15 millicuries of Xenon 133 was utilized for the ventilation portion of the study. Ventilation images demonstrate slightly heterogeneous radiotracer distribution toward the lung bases. Mild air trapping towards the lung bases also noted. The perfusion is also heterogeneous, though correlating with the ventilation without large lobar or definite segmental defects. Available chest radiograph from earlier today demonstrates no acute chest process. CONCLUSION: Low probability exam for pulmonary embolism. COPD not excluded. Thank you for the opportunity to participate in this patient's care.
[2017-08-07] MEDS ORDERED: TYLENOL PO PRN (14:45)
[2017-08-07] MEDS ORDERED: DULCOLAX PR PRN (14:45)
[2017-08-07] MEDS ORDERED: PROVENTIL IH PRN (14:45)
[2017-08-07] MEDS ORDERED: MILK OF MAGNESIA PO PRN (14:45)
[2017-08-07] MEDS ORDERED: ZOFRAN IV PRN (14:45)
[2017-08-07] MEDS ORDERED: REMERON PO PRN (14:48)
[2017-08-07] MEDS ORDERED: ULTRAM PO PRN (14:48)
[2017-08-07] MEDS: PULMICORT IH SCH (19:48)
[2017-08-08] MEDS ORDERED: BROVANA NEBU IH SCH (08:00)
[2017-08-08] MEDS ORDERED: PULMICORT IH SCH (09:45)
[2017-08-08] MEDS: PULMICORT IH SCH (09:55)
[2017-08-08] MEDS ORDERED: SODIUM POLYSTYRENE SULFONATE 30 GM PO SCH (10:00)
[2017-08-08] MEDS ORDERED: PROTONIX PO SCH (10:00)
[2017-08-08] MEDS ORDERED: ZITHROMAX 500 MG in NACL 0.9% 250ML 250 ML IV SCH (10:00)
[2017-08-08] MEDS ORDERED: KIONEX PO SCH (11:00)
[2017-08-08] MEDS ORDERED: PNEUMOVAX 23 IM ONE (12:00)
[2017-08-08] MEDS ORDERED: Fluarix Quad 2017-2018(36 MOS+) IM ONE (12:00)
--- NOTE | 2017-08-08 13:14 | Progress Note ---
<LM TRACEY - Last Filed: 08/08/17 13:25> Assessment and Plan Assessment and plan: Patient is a 77 years old Female with HTN, CVA, OH, OA, Asthma, COPD on 3L Home Oxygen, CHF, presents to ED for evaluation. Pt states that she has experienced shortness of breath for the past 2 weeks with worsening symptoms over the past 2 days. Pt acknowledges productive cough of clear sputum with increased sputum production. Acute respiratory failure with hypoxia Patient oxygen saturation improved with 2LNC; currently SPO2 98%. No acute respiratory distress noted. Aggressive Nebulizers/Inhalers ABG when necessary Oxygen supplement Supportive care Acute on chronic diastolic Congestive heart failure/pulmonary edema Echocardiogram ordered Restart on Diuresis, beta blockers and ACEI/ARB Strict I&O's and daily weights Low-sodium/cardiac diet/fluid restriction Closely monitor electrolytes Cardiology evaluation Acute COPD exacerbation Continue on Duoneb every 6 hours Wean IV steroid Solumedrol Initiated empiric IV Rocephin and azithromycin Oxygen as necessary Acute renal failure (ARF) Started on IV fluid if renal function not improve we will consider nephrology Repeat BMP Closely monitor electrolytes Hypertensive urgency Continue home antihypertensive medications Closely monitor blood pressure Anemia Stable at this time Closely monitor H&H Elevated D-dimer CTA ordered VL LE Doppler ordered DVT prophylaxis Lovenox History Interval history: Patient complains dyspnea on exertion, she denies chest pain, lightheadedness or dizziness. Lab's and nurse's notes reviewed. Hospitalist Physical - Constitutional Vitals: Temp Pulse Resp BP Pulse Ox 98.5 F 115 H 17 136/88 95 08/08/17 07:29 08/08/17 09:46 08/08/17 09:46 08/08/17 07:29 08/08/17 09:51 General appearance: Present: mild distress - EENT Eyes: Present: PERRL ENT: hearing intact - Neck Neck: Present: supple - Respiratory Respiratory effort: normal Respiratory: bilateral: wheezing (mild) - Cardiovascular Rhythm: regular Heart Sounds: Present: S1 & S2 - Extremities Extremities: no ischemia Peripheral Pulses: within normal limits - Abdominal General gastrointestinal: soft, non-tender - Integumentary Integumentary: Present: clear, warm, dry - Psychiatric Psychiatric: appropriate mood/affect - Neurologic Neurologic: CNII-XII intact - Allied Health Allied health notes reviewed: nursing Results - Labs CBC & Chem 7: 08/07/17 08:58 08/07/17 08:58 Labs: Laboratory Last Values WBC 3.3 K/mm3 (4.5-11.0) L 08/07/17 08:58 RBC 3.46 M/mm3 (3.65-5.03) L 08/07/17 08:58 Hgb 9.3 gm/dl (10.1-14.3) L 08/07/17 08:58 Hct 28.6 % (30.3-42.9) L 08/07/17 08:58 MCV 83 fl (79-97) 08/07/17 08:58 MCH 27 pg (28-32) L 08/07/17 08:58 MCHC 33 % (30-34) 08/07/17 08:58 RDW 15.6 % (13.2-15.2) H 08/07/17 08:58 Plt Count 161 K/mm3 (140-440) 08/07/17 08:58 Lymph % (Auto) 21.6 % (13.4-35.0) 08/07/17 08:58 [place] % (Auto) 7.9 % (0.0-7.3) H 08/07/17 08:58 Eos % (Auto) 10.7 % (0.0-4.3) H 08/07/17 08:58 Baso % (Auto) 0.6 % (0.0-1.8) 08/07/17 08:58 Lymph # 0.7 K/mm3 (1.2-5.4) L 08/07/17 08:58 [place] # 0.3 K/mm3 (0.0-0.8) 08/07/17 08:58 Eos # 0.4 K/mm3 (0.0-0.4) 08/07/17 08:58 Baso # 0.0 K/mm3 (0.0-0.1) 08/07/17 08:58 Seg Neutrophils % 59.2 % (40.0-70.0) 08/07/17 08:58 Seg Neutrophils # 2.0 K/mm3 (1.8-7.7) 08/07/17 08:58 D-Dimer 749.90 ng/mlDDU (0-234) H 08/07/17 11:16 Sodium 143 mmol/L (137-145) 08/07/17 08:58 Potassium 4.6 mmol/L (3.6-5.0) 08/07/17 08:58 Chloride 100.3 mmol/L (98-107) 08/07/17 08:58 Carbon Dioxide 31 mmol/L (22-30) H 08/07/17 08:58 Anion Gap 16 mmol/L 08/07/17 08:58 BUN 19 mg/dL (7-17) H 08/07/17 08:58 Creatinine 1.9 mg/dL (0.7-1.2) H 08/07/17 08:58 Estimated GFR 31 ml/min 08/07/17 08:58 BUN/Creatinine Ratio 10 % 08/07/17 08:58 Glucose 99 mg/dL (65-100) 08/07/17 08:58 Calcium 8.8 mg/dL (8.4-10.2) 08/07/17 08:58 Troponin T < 0.010 ng/mL (0.00-0.029) 08/07/17 08:58 NT-Pro-B Natriuret Pep 172.2 pg/mL (0-900) 08/07/17 08:58 - Imaging and Cardiology Chest x-ray: image reviewed (Unremarkable ) <DONAL PARMAR - Last Filed: 08/08/17 14:27> Assessment and Plan Assessment and plan: I saw and evaluated the patient. I agree with the findings and the plan of care as documented in the Nurse Practitioner's progress note. Hospitalist Physical - Constitutional Vitals: Temp Pulse Resp BP Pulse Ox 98.5 F 115 H 17 136/88 95 08/08/17 07:29 08/08/17 09:46 08/08/17 09:46 08/08/17 07:29 08/08/17 09:51 Results - Labs CBC & Chem 7: 08/07/17 08:58 08/07/17 08:58 Labs: Laboratory Last Values WBC 3.3 K/mm3 (4.5-11.0) L 08/07/17 08:58 RBC 3.46 M/mm3 (3.65-5.03) L 08/07/17 08:58 Hgb 9.3 gm/dl (10.1-14.3) L 08/07/17 08:58 Hct 28.6 % (30.3-42.9) L 08/07/17 08:58 MCV 83 fl (79-97) 08/07/17 08:58 MCH 27 pg (28-32) L 08/07/17 08:58 MCHC 33 % (30-34) 08/07/17 08:58 RDW 15.6 % (13.2-15.2) H 08/07/17 08:58 Plt Count 161 K/mm3 (140-440) 08/07/17 08:58 Lymph % (Auto) 21.6 % (13.4-35.0) 08/07/17 08:58 [place] % (Auto) 7.9 % (0.0-7.3) H 08/07/17 08:58 Eos % (Auto) 10.7 % (0.0-4.3) H 08/07/17 08:58 Baso % (Auto) 0.6 % (0.0-1.8) 08/07/17 08:58 Lymph # 0.7 K/mm3 (1.2-5.4) L 08/07/17 08:58 [place] # 0.3 K/mm3 (0.0-0.8) 08/07/17 08:58 Eos # 0.4 K/mm3 (0.0-0.4) 08/07/17 08:58 Baso # 0.0 K/mm3 (0.0-0.1) 08/07/17 08:58 Seg Neutrophils % 59.2 % (40.0-70.0) 08/07/17 08:58 Seg Neutrophils # 2.0 K/mm3 (1.8-7.7) 08/07/17 08:58 D-Dimer 749.90 ng/mlDDU (0-234) H 08/07/17 11:16 Sodium 143 mmol/L (137-145) 08/07/17 08:58 Potassium 4.6 mmol/L (3.6-5.0) 08/07/17 08:58 Chloride 100.3 mmol/L (98-107) 08/07/17 08:58 Carbon Dioxide 31 mmol/L (22-30) H 08/07/17 08:58 Anion Gap 16 mmol/L 08/07/17 08:58 BUN 19 mg/dL (7-17) H 08/07/17 08:58 Creatinine 1.9 mg/dL (0.7-1.2) H 08/07/17 08:58 Estimated GFR 31 ml/min 08/07/17 08:58 BUN/Creatinine Ratio 10 % 08/07/17 08:58 Glucose 99 mg/dL (65-100) 08/07/17 08:58 Calcium 8.8 mg/dL (8.4-10.2) 08/07/17 08:58 Troponin T < 0.010 ng/mL (0.00-0.029) 08/07/17 08:58 NT-Pro-B Natriuret Pep 172.2 pg/mL (0-900) 08/07/17 08:58
--- NOTE | 2017-08-08 14:53 | Discharge Summary ---
Providers - Providers Date of Admission: 08/07/17 14:45 Date of discharge: 08/08/17 Attending physician: DONAL PARMAR MD Primary care physician: LENS MOLDER Hospitalization Reason for admission: COPD Condition: Stable Pertinent studies: CXR normal CXR V/Q scan low probability for PE LE doppler negative for PE. CT head no acute intra cranial process. Hospital course: History of present illness: 77 YO Female with HTN, CVA, [place], OA, Asthma, COPD on 3L Home Oxygen, CHF, presents to ED for evaluation. Pt states that she has experienced shortness of breath for the past 2 weeks with worsening symptoms over the past 2 days. Pt acknowledges productive cough of clear sputum with increased sputum production. Pt symptoms not relieved with increased oxygen, and breathing treatments. Pt also complains of a splitting headache for the past 3 months with worsening symptoms over the past 3 days. Pt states that the pain 1s 6-8/10, localized to the left side of her head, intermittent and is associated with dizziness and weakness. Patient was admitted to the floor and she was treated for COPD exacrbation. when I saw in the morning the patient was stable. All the tests are normal including CT head. The patient didn't have any SOB and headache subsided. patient said she saw to her PCP recently and her meds were refilled so she doesn 't need any medications. Patient was hemodynamically stable and was saturating in the mid 90's on room air. Patient discharged home. Peer to peer was done with [facility] insurance doctor and denied for inpatient care. Disposition: TO HOME OR SELFCARE Time spent for discharge: 31 minutes - Discharge Diagnoses (1) CHF (congestive heart failure) Status: Acute Qualifiers: Congestive heart failure type: diastolic Congestive heart failure chronicity: acute on chronic Qualified Code(s): I50.33 - Acute on chronic diastolic (congestive) heart failure (2) Chronic kidney disease Status: Acute Qualifiers: Chronic kidney disease stage: unspecified stage Qualified Code(s): N18.9 - Chronic kidney disease, unspecified (3) HTN (hypertension) Status: Acute Qualifiers: Hypertension type: H (4) COPD (chronic obstructive pulmonary disease) Status: Chronic Qualifiers: COPD type: C Chronic bronchitis type: simple Emphysema type: E Qualified Code(s): J41.0 - Simple chronic bronchitis Core Measure Documentation - Palliative Care Palliative Care/ Comfort Measures: Not Applicable - Core Measures Any of the following diagnoses?: none Exam - Physical Exam Narrative exam: Not in cardiopulmonary distress. The patient appeared well nourished and normally developed. Vital signs as documented. Head exam is unremarkable. No scleral icterus . Neck is without jugular venous distension, thyromegaly, or carotid bruits. Lungs are clear to auscultation. Cardiac exam reveals regular rate and Rhythm. First and second heart sounds normal. No murmurs, rubs or gallops. Abdominal exam reveals normal bowel sounds, no masses, no organomegaly and no aortic enlargement. Extremities are nonedematous and both femoral and pedal pulses are normal. [employer]: Alert and oriented 3. No focal weakness. - Constitutional Vitals: Temp Pulse Resp BP Pulse Ox 98.5 F 115 H 17 136/88 95 08/08/17 07:29 08/08/17 09:46 08/08/17 09:46 08/08/17 07:29 08/08/17 09:51 Plan Activity: no restrictions Weight Bearing Status: Full Weight Bearing Diet: low cholesterol, low salt Follow up with: PRIMARY CAREMD [Primary Care Provider] - 3-5 Days
[2017-08-08] MEDS ORDERED: NACL 0.9% 1000 ML 1,000 ML IV SCH (15:00)
[2017-08-08 16:14] VITALS: BP 118/74
--- NOTE | 2017-08-10 07:05 | Vascular Lab Report ---
LOWER EXTREMITY VENOUS DUPLEX: REASON FOR EXAM: Elevated d-dimer. COMMENTS ON THE RIGHT: All veins visualized are freely compressible without evidence of internal echogenicity. Flow is spontaneous and phasic throughout. COMMENTS ON THE LEFT: All veins visualized are freely compressible without evidence of internal echogenicity. Flow is spontaneous and phasic throughout. IMPRESSION: No evidence of acute or chronic deep venous thrombosis in either lower extremity.
== END 2017-08-08 17:48 | disposition home or self-care (01) | DRG 682 ==
LOC: ED 08:15 → 3A 14:45
PROVIDERS: ADMIT Internal Medicine; ATTEND Internal Medicine
PROC: 3E0234Z Introduction of Serum, Toxoid and Vaccine into Muscle, Percutaneous Approach (ICD-10-PCS; principal; 2017-08-08)
DX: N17.9 Acute kidney failure, unspecified (principal); J96.20 Acute and chronic respiratory failure, unspecified whether with hypoxia or hypercapnia; I50.33 Acute on chronic diastolic (congestive) heart failure; J44.1 Chronic obstructive pulmonary disease with (acute) exacerbation; I13.0 Hypertensive heart and chronic kidney disease with heart failure and stage 1 through stage 4 chronic kidney disease, or unspecified chronic kidney disease; N18.9 Chronic kidney disease, unspecified; I25.10 Atherosclerotic heart disease of native coronary artery without angina pectoris; I25.2 Old myocardial infarction; M19.90 Unspecified osteoarthritis, unspecified site; Z96.659 Presence of unspecified artificial knee joint; D64.9 Anemia, unspecified; I16.0 Hypertensive urgency; Z86.73 Personal history of transient ischemic attack (TIA), and cerebral infarction without residual deficits; Z23 Encounter for immunization; Z95.0 Presence of cardiac pacemaker; Z87.891 Personal history of nicotine dependence; Z98.42 Cataract extraction status, left eye; Z98.41 Cataract extraction status, right eye; Z99.81 Dependence on supplemental oxygen; Z90.710 Acquired absence of both cervix and uterus; Z88.0 Allergy status to penicillin; Z88.2 Allergy status to sulfonamides; Z88.6 Allergy status to analgesic agent
CPT/HCPCS: 36415; 70450; 71010; 78582; 80048; 83880; 84484; 85025; 85379; 90686; 90732; 93005; 93010; 93970; 94640; 94760; A9540; A9558; J0456; J2270; J2920; J2930; J7050

== ENCOUNTER 2017-08-22 11:16 | Outpatient (CLI) | payer MEDICARE ==
[2017-08-22 11:50] LABS: ISTAT Base Excess 3; ISTAT HCO3 28.1; ISTAT PCO2 45.9 (35-45); ISTAT PH 7.396 (7.35-7.45); ISTAT PO2 103 (80-105); ISTAT SO2 98; ISTAT TCO2 30
== END 2017-08-22 11:17 | disposition home or self-care (01) ==
LOC: LAB 11:16
PROVIDERS: ATTEND Internal Medicine Critical Care Medicine
DX: J44.9 Chronic obstructive pulmonary disease, unspecified (principal)
CPT/HCPCS: 82803

== ENCOUNTER 2017-09-20 19:39 | Inpatient (IN) | payer MEDICARE ==
[2017-09-20] MEDS ORDERED: PROVENTIL IH ONE (20:34)
--- NOTE | 2017-09-20 20:50 | Emergency Department Report ---
ED Shortness of Breath HPI - General Chief Complaint: Dyspnea/Respdistress Stated Complaint: CHEST PAIN, RESPIRATORY DISTRESS Time Seen by Provider: 09/20/17 20:23 Source: EMS Mode of arrival: Stretcher Limitations: No Limitations - History of Present Illness Initial Comments: Patient is a 77-year-old female that presents to the ER with mid substernal chest pain and shortness of breath and difficulty breathing that started around 4 PM. Patient arrived by EMS from home. Patient also reports nausea and vomiting and abdominal pain. Patient states her oxygen was low at home. Patient has a long history of COPD, CHF, asthma, CAD, and hypertension. Patient states right now she's been a little bit better with a nebulizer. She denies fever and chills. MD Complaint: shortness of breath, cough, chest pain -: Sudden, hour(s) (4 hours ago) Pain Scale: 8 Quality: stabbing Consistency: constant Improves With: oxygen, rest, bronchodilators, upright position Worsens With: exertion, movement, coughing, inspiration Known History Of: COPD, asthma, congestive heart failure Context: recent URI Associated Symptoms: chest pain, pain with inspiration, cough, nausea/vomiting, abdominal pain Treatments Prior to Arrival: oxygen, bronchodilator - Related Data Home Oxygen Therapy: No Home Oxygen Amount: 3 Liters Home Medications Medication Instructions Recorded Confirmed Last Taken Mirtazapine [Remeron] 30 mg PO QHS PRN 04/27/17 08/07/17 Unknown traMADol [Ultram 50 MG tab] 50 - 100 mg PO BID PRN 04/27/17 08/07/17 Unknown Sodium Polystyrene Sulfonate 8 tsp PO Q48H 08/07/17 08/07/17 Unknown Previous Rx's Medication Instructions Recorded Last Taken Type ALBUTEROL NEB's [Proventil 0.083% 2.5 mg IH Q4HRT PRN #30 nebu 04/19/17 Unknown Rx NEBS] Budesonide [Pulmicort Respules] 0.25 mg IH Q12HRT #1 box 04/19/17 Unknown Rx Pantoprazole [Protonix TAB] 40 mg PO QDAY #30 tablet 04/19/17 04/26/17 Rx Allergies Allergy/AdvReac Type Severity Reaction Status Date / Time aspirin Allergy Hives Verified 04/16/17 13:55 Penicillins Allergy Hives Verified 04/16/17 13:55 Sulfa (Sulfonamide Allergy Hives Verified 04/16/17 13:55 Antibiotics) ED Review of Systems ROS: Stated complaint: CHEST PAIN, RESPIRATORY DISTRESS Other details as noted in HPI Constitutional: see HPI Eyes: as per HPI ENT: as per HPI Respiratory: see HPI, cough, shortness of breath, SOB with exertion, SOB at rest , wheezing Cardiovascular: as per HPI, chest pain, dyspnea on exertion Endocrine: no symptoms reported Gastrointestinal: as per HPI, abdominal pain, nausea, vomiting Genitourinary: as per HPI Musculoskeletal: as per HPI Skin: as per HPI Neurological: as per HPI Psychiatric: as per HPI Hematological/Lymphatic: as per HPI ED Past Medical Hx - Past Medical History Previous Medical History?: Yes Hx Hypertension: Yes Hx CVA: Yes (x 2) Hx Heart Attack/AMI: Yes (2009) Hx Congestive Heart Failure: Yes Hx Diabetes: No Hx Renal Disease: Yes Hx Arthritis: Yes Hx Asthma: Yes Hx COPD: Yes Hx HIV: No Additional medical history: Chronic Bronchitis - Surgical History Past Surgical History?: Yes Hx Coronary Stent: No Hx Open Heart Surgery: No Hx Pacemaker: Yes Hx Internal Defibrillator: No Hx Cholecystectomy: No Hx Appendectomy: No Hx Breast Surgery: No Additional Surgical History: Left Knee Surgery , demand pacemaker (90's). Hyst. catarac removal in both eyes - Social History Smoking Status: Never Smoker - Medications Home Medications: Home Medications Medication Instructions Recorded Confirmed Last Taken Type ALBUTEROL NEB's [Proventil 0.083% 2.5 mg IH Q4HRT PRN #30 nebu 04/19/17 Unknown Rx NEBS] Budesonide [Pulmicort Respules] 0.25 mg IH Q12HRT #1 box 04/19/17 08/07/17 Unknown Rx Pantoprazole [Protonix TAB] 40 mg PO QDAY #30 tablet 04/19/17 08/07/17 04/26/17 Rx Mirtazapine [Remeron] 30 mg PO QHS PRN 04/27/17 08/07/17 Unknown History traMADol [Ultram 50 MG tab] 50 - 100 mg PO BID PRN 04/27/17 08/07/17 Unknown History Sodium Polystyrene Sulfonate 8 tsp PO Q48H 08/07/17 08/07/17 Unknown History ED Physical Exam - General Limitations: No Limitations General appearance: alert, in distress - Head Head exam: Present: atraumatic, normocephalic - Eye Eye exam: Present: normal appearance - ENT ENT exam: Present: mucous membranes moist - Neck Neck exam: Present: normal inspection - Respiratory Respiratory exam: Present: respiratory distress, wheezes, rhonchi, accessory muscle use - Cardiovascular Cardiovascular Exam: Present: regular rate, normal rhythm. Absent: systolic murmur, diastolic murmur, rubs, gallop - GI/Abdominal GI/Abdominal exam: Present: soft, normal bowel sounds - Extremities Exam Extremities exam: Present: normal inspection - Back Exam Back exam: Present: normal inspection - Neurological Exam Neurological exam: Present: alert, oriented X3 - Psychiatric Psychiatric exam: Present: normal affect, normal mood - Skin Skin exam: Present: warm, dry, intact, normal color. Absent: rash ED Course Vital Signs 09/20/17 09/20/17 09/20/17 19:48 20:30 20:40 Temperature 98 F Pulse Rate 116 H Pulse Rate [ Anterior Bilateral Throughout] Respiratory 26 H 24 Rate Respiratory Rate [Anterior Bilateral Throughout] Blood Pressure 143/96 131/88 Blood Pressure [Left] O2 Sat by Pulse 96 97 97 Oximetry 09/20/17 09/20/17 09/20/17 20:41 20:42 20:45 Temperature 97.7 F Pulse Rate 110 H Pulse Rate [ 105 H Anterior Bilateral Throughout] Respiratory 24 Rate Respiratory 28 H Rate [Anterior Bilateral Throughout] Blood Pressure 131/88 Blood Pressure 149/85 [Left] O2 Sat by Pulse 97 96 Oximetry 09/20/17 09/20/17 09/20/17 21:00 21:15 21:30 Temperature Pulse Rate 97 H 92 H 97 H Pulse Rate [ Anterior Bilateral Throughout] Respiratory 29 H 23 13 Rate Respiratory Rate [Anterior Bilateral Throughout] Blood Pressure 126/73 126/73 122/63 Blood Pressure [Left] O2 Sat by Pulse 98 98 99 Oximetry 09/20/17 09/20/17 09/20/17 21:45 21:52 22:00 Temperature Pulse Rate 88 82 Pulse Rate [ 111 H Anterior Bilateral Throughout] Respiratory 22 26 H Rate Respiratory 23 Rate [Anterior Bilateral Throughout] Blood Pressure 122/63 125/69 Blood Pressure [Left] O2 Sat by Pulse 98 100 Oximetry 09/20/17 09/20/17 09/20/17 22:15 22:30 23:43 Temperature Pulse Rate 89 83 Pulse Rate [ Anterior Bilateral Throughout] Respiratory 26 H 20 26 H Rate Respiratory Rate [Anterior Bilateral Throughout] Blood Pressure 125/69 141/71 Blood Pressure [Left] O2 Sat by Pulse 100 100 Oximetry 09/20/17 09/21/17 09/21/17 23:45 00:50 01:02 Temperature Pulse Rate 88 103 H Pulse Rate [ 92 H Anterior Bilateral Throughout] Respiratory 22 26 H 27 H Rate Respiratory 24 Rate [Anterior Bilateral Throughout] Blood Pressure 122/74 Blood Pressure 162/89 [Left] O2 Sat by Pulse 97 95 Oximetry 09/21/17 01:20 Temperature Pulse Rate Pulse Rate [ 93 H Anterior Bilateral Throughout] Respiratory Rate Respiratory 22 Rate [Anterior Bilateral Throughout] Blood Pressure Blood Pressure [Left] O2 Sat by Pulse Oximetry ED Medical Decision Making - Lab Data Result diagrams: 09/20/17 20:25 09/20/17 20:25 - EKG Data -: EKG Interpreted by Ma EKG shows normal: sinus rhythm Rate: tachycardia - EKG Data When compared to previous EKG there are: no significant change, changes noted Interpretation: no acute changes - Radiology Data Radiology results: report reviewed VQ scan positive for intermediate probability for PE - Medical Decision Making Patient is 77-year-old female who presented for chest pain and shortness of breath. Patient found to have elevated BNP, elevated d-dimer, positive VQ scan for PE Discussed case with hospitalist. Hospitalist agreed to admit. Critical care attestation.: If time is entered above; I have spent that time in minutes in the direct care of this critically ill patient, excluding procedure time. ED Disposition Clinical Impression: Acute chest pain, HTN (hypertension), Chronic renal insufficiency, Shortness of breath, COPD exacerbation, Pulmonary emboli COPD (chronic obstructive pulmonary disease) Qualifiers: Chronic bronchitis type: simple Qualified Code(s): J41.0 - Simple chronic bronchitis Headache Qualifiers: Headache type: unspecified Headache chronicity pattern: unspecified pattern Intractability: intractable Qualified Code(s): R51 - Headache CHF (congestive heart failure) Qualifiers: Congestive heart failure type: diastolic Congestive heart failure chronicity: acute on chronic Qualified Code(s): I50.33 - Acute on chronic diastolic ( congestive) heart failure Acute renal failure (ARF) Qualifiers: Acute renal failure type: unspecified Qualified Code(s): N17.9 - Acute kidney failure, unspecified Disposition: DC-09 OP ADMIT IP TO THIS HOSP Is pt being admited?: Yes Does the pt Need Aspirin: No Condition: Critical Instructions: Hypertension (ED)
[2017-09-20 20:54] LABS: Basophils % (Auto) 0.3 % (0.0-1.8); Eosinophils % (Auto) 9.9 % (0.0-4.3); Hematocrit 29.9 % (30.3-42.9); Hemoglobin 9.6 gm/dl (10.1-14.3); Mean Corpuscular HGB Conc 32 % (30-34); Mean Corpuscular Hemoglobin 27 pg (28-32); Mean Corpuscular Volume 85 fl (79-97); Platelet Count 168 K/mm3 (140-440); Red Blood Count 3.53 M/mm3 (3.65-5.03); Red Cell Distribution Width 14.9 % (13.2-15.2); White Blood Count 4.5 K/mm3 (4.5-11.0)
[2017-09-20 21:03] LABS: Alanine Aminotransferase 7 units/L (7-56); Albumin 4.2 g/dL (3.9-5); Albumin/Globulin Ratio 1.8 %; Alkaline Phosphatase 100 units/L (35-129); Anion Gap 19 mmol/L; BUN/Creatinine Ratio 13; Blood Urea Nitrogen 23 mg/dL (7-17); Calcium 8.4 mg/dL (8.4-10.2); Carbon Dioxide 26 mmol/L (22-30); Chloride 103.2 mmol/L (98-107); Glucose 109 mg/dL (65-100); Lipase 55 units/L (13-60); Potassium 4.9 mmol/L (3.6-5.0); Sodium 143 mmol/L (137-145); Total Protein 6.6 g/dL (6.3-8.2)
[2017-09-20] MEDS ORDERED: MORPHINE IV ONE ×2 (21:27→23:42)
[2017-09-20 23:15] LABS: Bilirubin,Urine NEG (Negative); Blood,Urine SM (Negative); Ketones,Urine NEG (Negative); Leukocyte Esterase,Urine SM (Negative); Mucus,Urine FEW /HPF; Nitrite,Urine NEG (Negative); Protein,Urine <15 mg/dL mg/dL (Negative); Urobilinogen,Urine < 2.0 mg/dL (<2.0)
[2017-09-20] MEDS ORDERED: MORPHINE ONE (23:42)
[2017-09-21] MEDS ORDERED: MORPHINE IV ONE (00:54)
[2017-09-21] MEDS ORDERED: ATROVENT IH ONE (00:57)
[2017-09-21] MEDS ORDERED: PROVENTIL IH ONE (00:57)
--- NOTE | 2017-09-21 01:08 | Nuclear Medicine Report ---
FINAL REPORT EXAM: NM LUNG SCAN PERF/VENT HISTORY: sob. high d-dimer TECHNIQUE: V/Q scan. 5 mCi technetium 99 M MAA IV administered for perfusion imaging. 15 mCi xenon the the 133 aerosol utilized for ventilation imaging. Correlation is made with chest radiograph from 09/20/2017 PRIORS: None. FINDINGS: There is diminished ventilation to the lower lobes initially. After equilibrium, there is retention of radiotracer in these areas suggesting air trapping/COPD. Perfusion images demonstrate heterogeneous diminished perfusion to the lower lobes. There are some areas which appear wedge like and segmental. It is difficult to determine whether these are matching or mismatched due to the COPD. IMPRESSION: Overall the findings as described above are compatible with intermediate probability of pulmonary embolus. COPD.
--- NOTE | 2017-09-21 01:36 | History and Physical Report ---
History of Present Illness History of present illness: 77-year-old woman with a history of COPD on home oxygen, hypertension, hyperlipidemia, chronic kidney disease, A. fib and TIA came to the emergency room because of shortness of breath. Also complaining of cough productive of yellow phlegm, no fever or chills . She also complained of chest pain in the epigastric area that has been ongoing for one week, and was intubated now constant, intensity palpable tingling or radiation, she cannot identify exacerbating or relieving factors. She had a stress test this year Review Of Systems: Constitutional: no weight loss Ears, eyes, nose, mouth and throat: no nasal congestion, no nasal discharge, no sinus pressure, blurry vision, diplopia Neck: No neck pain or rigidity. Cardiovascular: no orthopnea, palpitations Respiratory: + shortness of breath, cough Gastrointestinal: abdominal pain, hematochezia Genitourinary : no dysuria, frequency , hematuria Musculoskeletal: no muscle ache Integumentary: no rash, no pruritis Neurological: no parathesias, focal weakness Endocrine: no cold or heat intolerance, no polyuria or polydipsia Hematologic/Lymphatic: no easy bruising, no easy bleeding, no gland swelling Allergic/Immunologic: no urticaria, no angioedema. PAST SURGICAL HISTORY: Knee surgery, pacemaker, cataract extraction, hysterectomy SOCIAL HISTORY: Denies alcohol, tobacco, drugs FAMILY HISTORY: Hypertension Medications and Allergies Allergies Allergy/AdvReac Type Severity Reaction Status Date / Time aspirin Allergy Hives Verified 04/16/17 13:55 Penicillins Allergy Hives Verified 04/16/17 13:55 Sulfa (Sulfonamide Allergy Hives Verified 04/16/17 13:55 Antibiotics) Home Medications Medication Instructions Recorded Confirmed Last Taken Type ALBUTEROL NEB's [Proventil 0.083% 2.5 mg IH Q4HRT PRN #30 nebu 04/19/17 Unknown Rx NEBS] Budesonide [Pulmicort Respules] 0.25 mg IH Q12HRT #1 box 04/19/17 09/21/17 Unknown Rx Pantoprazole [Protonix TAB] 40 mg PO QDAY #30 tablet 04/19/17 09/21/17 04/26/17 Rx Mirtazapine [Remeron] 30 mg PO QHS PRN 04/27/17 09/21/17 Unknown History traMADol [Ultram 50 MG tab] 50 - 100 mg PO BID PRN 04/27/17 09/21/17 Unknown History Sodium Polystyrene Sulfonate 8 tsp PO Q48H 08/07/17 09/21/17 Unknown History Ciprofloxacin HCl [Ciprofloxacin 500 mg PO Q12H 09/21/17 09/21/17 Unknown History TAB] Exam - Physical Exam Narrative exam: Gen. appearance: Patient lying in bed in no acute distress HEENT: Normocephalic/atraumatic, pupils equal round reactive to light, extra alkaline movement intact, no scleral icterus, no JVD or thyromegaly or nodule, neck is supple, mucous membrane moist, no erythema or exudate Heart: S1-S2, regular rate and rhythm Lungs: Wheezing bilateral breathing comfortable Abdomen: Positive bowel sounds, nontender, nondistended, no organomegaly Extremities: No edema, cyanosis, clubbing Neuro:: Oriented 3 , cranial nerves II-12 intact, speech, motor intact Skin: No rash, nodules, warm dry - Constitutional Vitals: Temp Pulse Resp BP Pulse Ox 97.7 F 93 H 22 162/89 95 09/20/17 20:42 09/21/17 01:20 09/21/17 01:20 09/21/17 00:50 09/21/17 00:50 Results - Labs CBC & Chem 7: 09/20/17 20:25 09/20/17 20:25 Labs: Abnormal lab results 09/20/17 09/20/17 09/20/17 Range/Units 20:25 20:25 21:01 RBC 3.53 L (3.65-5.03) M/mm3 Hgb 9.6 L (10.1-14.3) gm/dl Hct 29.9 L (30.3-42.9) % MCH 27 L (28-32) pg [place] % (Auto) 9.5 H (0.0-7.3) % Eos % (Auto) 9.9 H (0.0-4.3) % Lymph # 0.9 L (1.2-5.4) K/mm3 D-Dimer 1130.69 H (0-234) ng/mlDDU BUN 23 H (7-17) mg/dL Creatinine 1.8 H (0.7-1.2) mg/dL Glucose 109 H (65-100) mg/dL - Imaging and Cardiology EKG: image reviewed Chest x-ray: image reviewed Assessment and Plan VQ intermediate probability Assessment COPD exacerbation Chest pain Intermediate probability for pulmonary emboli Hypertension Hyperlipidemia Chronic kidney disease A. fib Plan Admitted to medicine Start high-dose steroids, nebulizer treatment. Check cardiac enzymes, Doppler lower extremities consult cardiology, pulmonary Continue appropriate outpatient medications start DVT prophylaxis
[2017-09-21] MEDS ORDERED: PERCOCET 5/325 PO PRN (02:57)
[2017-09-21] MEDS ORDERED: TYLENOL PO PRN (02:57)
[2017-09-21] MEDS ORDERED: ZOFRAN IV PRN (02:57)
[2017-09-21] MEDS ORDERED: DULCOLAX PR PRN (02:57)
[2017-09-21] MEDS ORDERED: MILK OF MAGNESIA PO PRN (02:57)
[2017-09-21 07:36] LABS: Creatine Kinase MB 3.4 ng/mL (0.0-4.0)
[2017-09-21 07:37] LABS: Creatine Kinase 163 units/L (30-135)
[2017-09-21] MEDS: DUONEB *Not for PRN Use IH SCH ×3 (08:07→22:24)
[2017-09-21 09:02] LABS: Creatine Kinase MB 3.6 ng/mL (0.0-4.0)
[2017-09-21 09:03] LABS: Creatine Kinase 177 units/L (30-135)
[2017-09-21] MEDS: LOVENOX SUB-Q SCH (09:43)
--- NOTE | 2017-09-21 10:47 | Consultation ---
History of Present Illness Consult date: 09/21/17 Requesting physician: ROSE MARIE LYLE Reason for consult: dyspnea, other (chronic respiratory failure) History of present illness: 77 y/o female admitted with acute exacerbation of COPD. Well known to our group as she is followed by Dr. Castillo. Started feeling more winded on Sunday, cancelled her flight to [place] and ended up being admitted on Sunday. Started on IV steroids supplemental O2 which she was already on at home. She did have chest and has some chronic renal disease so a V/Q was done which was intermediate. Past History Past Medical History: COPD, GERD, other (insmonia and chronic pain) Past Surgical History: Other (none) Social history: smoking (former and current from time to time smoker) Medications and Allergies Allergies Allergy/AdvReac Type Severity Reaction Status Date / Time aspirin Allergy Hives Verified 04/16/17 13:55 Penicillins Allergy Hives Verified 04/16/17 13:55 Sulfa (Sulfonamide Allergy Hives Verified 04/16/17 13:55 Antibiotics) Home Medications Medication Instructions Recorded Confirmed Last Taken Type ALBUTEROL NEB's [Proventil 0.083% 2.5 mg IH Q4HRT PRN #30 nebu 04/19/17 Unknown Rx NEBS] Budesonide [Pulmicort Respules] 0.25 mg IH Q12HRT #1 box 04/19/17 09/21/17 Unknown Rx Pantoprazole [Protonix TAB] 40 mg PO QDAY #30 tablet 04/19/17 09/21/17 04/26/17 Rx Mirtazapine [Remeron] 30 mg PO QHS PRN 04/27/17 09/21/17 Unknown History traMADol [Ultram 50 MG tab] 50 - 100 mg PO BID PRN 04/27/17 09/21/17 Unknown History Sodium Polystyrene Sulfonate 8 tsp PO Q48H 08/07/17 09/21/17 Unknown History Ciprofloxacin HCl [Ciprofloxacin 500 mg PO Q12H 09/21/17 09/21/17 Unknown History TAB] Active Meds: Active Medications Acetaminophen (Tylenol) 650 mg PO Q4H PRN PRN Reason: Pain MILD(1-3)/Fever >100.5/THORNTON Albuterol/Ipratropium (Duoneb *Not For Prn Use*) 1 ampul IH Q6HRT [facility] Last Admin: 09/21/17 08:07 Dose: 1 ampul Bisacodyl (Dulcolax) 10 mg [place] QDAY PRN PRN Reason: Constipation unrelieved by MOM Enoxaparin Sodium (Lovenox) 30 mg SUB-Q QDAY [facility] Last Admin: 09/21/17 09:43 Dose: 30 mg Magnesium Hydroxide (Milk Of Magnesia) 30 ml PO Q4H PRN PRN Reason: Constipation Methylprednisolone Sodium Succinate (Solu-Medrol) 125 mg IV Q6H [facility] Last Admin: 09/21/17 09:43 Dose: 125 mg Ondansetron HCl (Zofran) 4 mg IV Q8H PRN PRN Reason: N/V unrelieved by Reglan Oxycodone/Acetaminophen (Percocet 5/325) 1 tab PO Q6H PRN PRN Reason: Pain, Moderate (4-6) Review of Systems All systems: negative Physical Examination Vital signs: Vital Signs Temp Pulse Resp BP Pulse Ox 98 F 116 H 26 H 143/96 96 09/20/17 19:48 09/20/17 19:48 09/20/17 19:48 09/20/17 19:48 09/20/17 19:48 General appearance: no acute distress, alert Eyes: non-icteric ENT: oropharynx moist Ascultation: Bilateral: diminished breath sounds Percussion: Bilateral: not dull Tactile fremitus: Bilateral: normal Gastrointestinal: normoactive bowel sounds, soft, non-tender Extremities: pulses normal Results - Laboratory Findings CBC and BMP: 09/22/17 06:03 09/22/17 06:03 PT/INR, D-dimer D-Dimer 1130.69 ng/mlDDU (0-234) H 09/20/17 21:01 Abnormal lab findings: Abnormal Labs 09/20/17 09/20/17 09/20/17 20:25 20:25 21:01 RBC 3.53 L Hgb 9.6 L Hct 29.9 L MCH 27 L [place] % (Auto) 9.5 H Eos % (Auto) 9.9 H Lymph # 0.9 L D-Dimer 1130.69 H BUN 23 H Creatinine 1.8 H Glucose 109 H Total Creatine Kinase 09/21/17 09/21/17 06:43 08:23 RBC Hgb Hct MCH [place] % (Auto) Eos % (Auto) Lymph # D-Dimer BUN Creatinine Glucose Total Creatine Kinase 163 H 177 H - Diagnostic Findings Chest x-ray: image reviewed (prominent pulmonary arteries and cardiac devices but otherwise clear) Assessment and Plan 77 y/o female with chronic respiratory failure admitted with acute exacerbation of COPD. 1. Doubtful this is PE as this is how patient has presented with COPD flare, many times in the past. Would not recommend anticoagulation and patient is in agreement. Agree with current regimen for COPD exacerbation. Pending evaluation tomorrow, will wean steroids. Thank you for this consult. Will continue to follow along with you.
--- NOTE | 2017-09-21 12:24 | Consultation ---
History of Present Illness Consult date: 09/21/17 Consult reason: chest pain, shortness of breath History of present illness: The patient is a 77-year-old woman with multiple medical problems. She has chronic obstructive pulmonary disease and pulmonary hypertension, chronic right bundle branch block on ECG, a 20-year-old dual chamber pacemaker for which she underwent generator replacement 10 months ago. She has also had extensive cardiac ischemic workup including cardiac catheterization 10 years ago that was normal coronaries, followed by multiple negative noninvasive ischemic evaluation most recently 6 months ago at [facility]. Over the past one to 2 weeks, she has had increasing shortness of breath and symptoms of COPD exacerbation. She states that she has been seen multiple times by her pulmonary physician, as recently as 3 days ago. Due to recurrent shortness of breath and wheezing, she presented to the hospital at this time and is admitted for further management of her COPD exacerbation. A pulmonary perfusion study has reported intermediate probability for pulmonary embolism. Chest x-ray is negative for pulmonary edema, but does reveal changes of COPD. EKG is normal sinus rhythm, left axis deviation and right bundle branch block, unchanged from her baseline. Most recent echocardiogram from 3 months ago demonstrated well-preserved left ventricle systolic function, ejection fraction 55-60%. Most pertinent finding was moderate or moderate hypertension with a pulmonary artery systolic pressure of 51. Past History Past Medical History: COPD, hypertension Past Surgical History: Other (cardiac pacemaker) Medications and Allergies Allergies Allergy/AdvReac Type Severity Reaction Status Date / Time aspirin Allergy Hives Verified 04/16/17 13:55 Penicillins Allergy Hives Verified 04/16/17 13:55 Sulfa (Sulfonamide Allergy Hives Verified 04/16/17 13:55 Antibiotics) Home Medications Medication Instructions Recorded Confirmed Last Taken Type ALBUTEROL NEB's [Proventil 0.083% 2.5 mg IH Q4HRT PRN #30 nebu 04/19/17 Unknown Rx NEBS] Budesonide [Pulmicort Respules] 0.25 mg IH Q12HRT #1 box 04/19/17 09/21/17 Unknown Rx Pantoprazole [Protonix TAB] 40 mg PO QDAY #30 tablet 04/19/17 09/21/17 04/26/17 Rx Mirtazapine [Remeron] 30 mg PO QHS PRN 04/27/17 09/21/17 Unknown History traMADol [Ultram 50 MG tab] 50 - 100 mg PO BID PRN 04/27/17 09/21/17 Unknown History Sodium Polystyrene Sulfonate 8 tsp PO Q48H 08/07/17 09/21/17 Unknown History Ciprofloxacin HCl [Ciprofloxacin 500 mg PO Q12H 09/21/17 09/21/17 Unknown History TAB] Active Meds: Active Medications Acetaminophen (Tylenol) 650 mg PO Q4H PRN PRN Reason: Pain MILD(1-3)/Fever >100.5/THORNTON Albuterol/Ipratropium (Duoneb *Not For Prn Use*) 1 ampul IH Q6HRT [facility] Last Admin: 09/21/17 08:07 Dose: 1 ampul Arformoterol Tartrate (Brovana Nebu) 15 mcg IH Q12HRT [facility] Bisacodyl (Dulcolax) 10 mg [place] QDAY PRN PRN Reason: Constipation unrelieved by MOM Budesonide (Pulmicort) 0.5 mg IH Q12HRT [facility] Enoxaparin Sodium (Lovenox) 30 mg SUB-Q QDAY [facility] Last Admin: 09/21/17 09:43 Dose: 30 mg Magnesium Hydroxide (Milk Of Magnesia) 30 ml PO Q4H PRN PRN Reason: Constipation Methylprednisolone Sodium Succinate (Solu-Medrol) 60 mg IV Q6H [facility] Ondansetron HCl (Zofran) 4 mg IV Q8H PRN PRN Reason: N/V unrelieved by Reglan Oxycodone/Acetaminophen (Percocet 5/325) 1 tab PO Q6H PRN PRN Reason: Pain, Moderate (4-6) Review of Systems Cardiovascular: shortness of breath, dyspnea on exertion, no chest pain, no orthopnea, no palpitations, no rapid/irregular heart beat, no edema, no syncope , no lightheadedness Physical Examination Vital Signs Temp Pulse Resp BP Pulse Ox 98 F 116 H 26 H 143/96 96 09/20/17 19:48 09/20/17 19:48 09/20/17 19:48 09/20/17 19:48 09/20/17 19:48 General appearance: no acute distress HEENT: Positive: PERRL Neck: Positive: neck supple Cardiac: Positive: Reg Rate and Rhythm Lungs: Positive: Decreased Breath Sounds Neuro: Positive: Grossly Intact Abdomen: Positive: Soft Female genitourinary: deferred Skin: Positive: Clear Extremities: Absent: edema Results 09/20/17 20:25 09/20/17 20:25 Cardiac Enzymes 09/20/17 09/21/17 09/21/17 Range/Units 20:25 06:43 08:23 AST 17 (5-40) units/L CK-MB (CK-2) 3.4 3.6 (0.0-4.0) ng/mL CBC 09/20/17 Range/Units 20:25 WBC 4.5 (4.5-11.0) K/mm3 RBC 3.53 L (3.65-5.03) M/mm3 Hgb 9.6 L (10.1-14.3) gm/dl Hct 29.9 L (30.3-42.9) % Plt Count 168 (140-440) K/mm3 Lymph # 0.9 L (1.2-5.4) K/mm3 [place] # 0.4 (0.0-0.8) K/mm3 Eos # 0.4 (0.0-0.4) K/mm3 Baso # 0.0 (0.0-0.1) K/mm3 Comprehensive Metabolic Panel 09/20/17 Range/Units 20:25 Sodium 143 (137-145) mmol/L Potassium 4.9 (3.6-5.0) mmol/L Chloride 103.2 (98-107) mmol/L Carbon Dioxide 26 (22-30) mmol/L BUN 23 H (7-17) mg/dL Creatinine 1.8 H (0.7-1.2) mg/dL Glucose 109 H (65-100) mg/dL Calcium 8.4 (8.4-10.2) mg/dL AST 17 (5-40) units/L ALT 7 (7-56) units/L Alkaline Phosphatase 100 (35-129) units/L Total Protein 6.6 (6.3-8.2) g/dL Albumin 4.2 (3.9-5) g/dL EKG interpretations - Telemetry EKG Rhythm: Sinus Rhythm (left axis deviation and right bundle branch block) Assessment and Plan - Patient Problems (1) Shortness of breath Current Visit: Yes Status: Acute Plan to address problem: Patient is presenting shortness of breath is likely due to COPD exacerbation, continue pulmonary management as you're doing.\ Cardiac status is stable and asymptomatic, conservative cardiac management.
[2017-09-21] MEDS: PULMICORT IH SCH ×2 (12:34→22:23)
[2017-09-21] MEDS: BROVANA NEBU IH SCH ×2 (12:35→22:23)
--- NOTE | 2017-09-21 13:32 | Event Note ---
Date: 09/21/17 Patient was seen and examined. Patient admitted today past midnight Continue inpatient Treatment for acute COPD exacerbation.
[2017-09-21] MEDS ORDERED: CHLORASEPTIC MM PRN (22:18)
[2017-09-22] MEDS: DUONEB *Not for PRN Use IH SCH ×3 (02:37→14:15)
[2017-09-22 05:58] VITALS: BP 124/63
[2017-09-22 06:42] LABS: Hematocrit 25.2 % (30.3-42.9); Hemoglobin 8.3 gm/dl (10.1-14.3); Mean Corpuscular HGB Conc 33 % (30-34); Mean Corpuscular Hemoglobin 28 pg (28-32); Mean Corpuscular Volume 84 fl (79-97); Platelet Count 147 K/mm3 (140-440); Red Blood Count 3.01 M/mm3 (3.65-5.03); Red Cell Distribution Width 15.7 % (13.2-15.2); White Blood Count 4.1 K/mm3 (4.5-11.0)
[2017-09-22 06:52] LABS: Calcium 8.6 mg/dL (8.4-10.2); Chloride 105.4 mmol/L (98-107); Potassium 4.5 mmol/L (3.6-5.0)
[2017-09-22] MEDS: PULMICORT IH SCH (08:59)
[2017-09-22] MEDS: BROVANA NEBU IH SCH (08:59)
[2017-09-22] MEDS: LOVENOX SUB-Q SCH (10:29)
--- NOTE | 2017-09-22 12:29 | Progress Note ---
Assessment and Plan 77 y/o female with chronic respiratory failure admitted with acute exacerbation of COPD. 1. Prednisone taper at discharge 60x3, 40x3, 20x3, 10x3 then stop. 2. No abx therapy needed at discharge 3. Can office sunday to set up hospital follow up with Jonathan at next available 4. No objection to discharge today. Continue home regimen for COPD Subjective Date of service: 09/22/17 Interval history: Feels much better. Wants to go home. Objective Vital Signs - 12hr 09/22/17 09/22/17 09/22/17 00:50 05:09 05:25 Temperature 98.2 F 98.4 F Pulse Rate 90 95 H 84 Pulse Rate [ Anterior Bilateral Throughout] Respiratory 20 20 Rate Respiratory Rate [Anterior Bilateral Throughout] Blood Pressure 121/64 124/63 O2 Sat by Pulse 95 95 Oximetry 09/22/17 09/22/17 09/22/17 08:59 09:02 09:15 Temperature Pulse Rate Pulse Rate [ 101 H 98 H Anterior Bilateral Throughout] Respiratory Rate Respiratory 18 18 Rate [Anterior Bilateral Throughout] Blood Pressure O2 Sat by Pulse 97 Oximetry Constitutional: no acute distress, alert Eyes: non-icteric ENT: oropharynx moist Ascultation: Bilateral: diminished breath sounds Percussion: Bilateral: not dull Tactile fremitus: Bilateral: normal Gastrointestinal: normoactive bowel sounds, soft, non-tender Extremities: pulses normal CBC and BMP: 09/22/17 06:03 09/22/17 06:03 ABG, PT/INR, D-dimer: PT/INR, D-dimer D-Dimer 1130.69 ng/mlDDU (0-234) H 09/20/17 21:01 Abnormal lab findings: Abnormal Labs 09/20/17 09/20/17 09/20/17 20:25 20:25 21:01 WBC RBC 3.53 L Hgb 9.6 L Hct 29.9 L MCH 27 L RDW Lymph % (Auto) Rhea % (Auto) 9.5 H Eos % (Auto) 9.9 H Lymph # 0.9 L Seg Neutrophils % D-Dimer 1130.69 H BUN 23 H Creatinine 1.8 H Glucose 109 H Total Creatine Kinase 09/21/17 09/21/17 09/22/17 06:43 08:23 06:03 WBC 4.1 L RBC 3.01 L Hgb 8.3 L Hct 25.2 L MCH RDW 15.7 H Lymph % (Auto) 7.7 L Rhea % (Auto) Eos % (Auto) Lymph # 0.3 L Seg Neutrophils % 88.7 H D-Dimer BUN Creatinine Glucose Total Creatine Kinase 163 H 177 H 09/22/17 06:03 WBC RBC Hgb Hct MCH RDW Lymph % (Auto) Rhea % (Auto) Eos % (Auto) Lymph # Seg Neutrophils % D-Dimer BUN 36 H Creatinine 2.0 H Glucose 139 H Total Creatine Kinase
--- NOTE | 2017-09-22 13:16 | Progress Note ---
Assessment and Plan - Patient Problems (1) Shortness of breath Current Visit: Yes Status: Acute Plan to address problem: Patient presented with shortness of breath likely due to COPD exacerbation, symptoms with improved pulmonary management. Cardiac status is stable and asymptomatic, conservative cardiac management. Okay for cardiac discharge and outpatient cardiac follow-up in one to 2 weeks. Subjective Date of service: 09/22/17 Interval history: Patient looks and feels comfortable, in no acute distress. No new cardiac complaints. Objective Vital Signs Temp Pulse Pulse Resp Resp BP Pulse Ox 09/22/17 09:15 98 H 18 09/22/17 09:02 97 09/22/17 08:59 101 H 18 09/22/17 05:25 84 09/22/17 05:09 98.4 F 95 H 20 124/63 95 09/22/17 00:50 98.2 F 90 20 121/64 95 09/21/17 22:46 104 H 18 09/21/17 22:27 100 H 18 98 09/21/17 20:37 98.5 F 112 H 20 120/71 96 09/21/17 17:23 98.2 F 110 H 18 121/65 97 09/21/17 16:05 97 H 20 09/21/17 15:55 105 H 20 - Physical Examination General: Appears Well, No Apparent Distress HEENT: Positive: PERRL Neck: Positive: neck supple Cardiac: Positive: Reg Rate and Rhythm Lungs: Positive: Decreased Breath Sounds Neuro: Positive: Grossly Intact Abdomen: Positive: Soft Skin: Positive: Clear Extremities: Absent: edema - Labs and Meds CBC 09/22/17 Range/Units 06:03 WBC 4.1 L (4.5-11.0) K/mm3 RBC 3.01 L (3.65-5.03) M/mm3 Hgb 8.3 L (10.1-14.3) gm/dl Hct 25.2 L (30.3-42.9) % Plt Count 147 (140-440) K/mm3 Lymph # 0.3 L (1.2-5.4) K/mm3 [place] # 0.1 (0.0-0.8) K/mm3 Eos # 0.0 (0.0-0.4) K/mm3 Baso # 0.0 (0.0-0.1) K/mm3 Comprehensive Metabolic Panel 09/22/17 Range/Units 06:03 Sodium 143 (137-145) mmol/L Potassium 4.5 (3.6-5.0) mmol/L Chloride 105.4 (98-107) mmol/L Carbon Dioxide 26 (22-30) mmol/L BUN 36 H (7-17) mg/dL Creatinine 2.0 H (0.7-1.2) mg/dL Glucose 139 H (65-100) mg/dL Calcium 8.6 (8.4-10.2) mg/dL - Imaging and Cardiology EKG: image reviewed
--- NOTE | 2017-09-22 13:44 | Discharge Summary ---
Providers - Providers Date of Admission: 09/21/17 02:57 Date of discharge: 09/22/17 Attending physician: ROSE MARIE LYLE 09/21/17 02:57 Consult to Physician [CONS] Routine Consulting Provider: ADELAIDA PERERA Reason For Exam: copd Place consult to:: Ed Notified:: Ed Phone number called:: in house Was contact made?: Yes If yes, spoke with:: Ed 09/21/17 06:11 Consult to Physician [CONS] Routine Consulting Provider: TIFFANIE PRICE Reason For Exam: cp Place consult to:: Isaac Notified:: Service Phone number called:: [phone] Was contact made?: Yes If yes, spoke with:: Meghan Time called:: 10:27 Primary care physician: BIOLOGY INSTRUCTOR Hospitalization Condition: Stable Hospital course: Patient is a 77-year-old woman with a history of chronic hypoxic respiratory failure due to COPD on 3 L home oxygen at all time, hypertension, hyperlipidemia , chronic kidney disease, A. fib and TIA came to the emergency room because of shortness of breath. Also complaining of cough productive of yellow phlegm, no fever or chills . She also complained of chest pain in the epigastric area that has been ongoing for one week, and was intubated now constant, intensity palpable tingling or radiation, she cannot identify exacerbating or relieving factors. She had a stress test this year VQ intermediate probability low pretest therefore no anticoagulation, Discharge diagnosis: Acute COPD exacerbation Chest pain Intermediate probability for pulmonary emboli Hypertension Hyperlipidemia Chronic kidney disease [address] Hargrove, pulmonology: "77 y/o female with chronic respiratory failure admitted with acute exacerbation of COPD. 1. Prednisone taper at discharge 60x3, 40x3, 20x3, 10x3 then stop. 2. No abx therapy needed at discharge 3. Can office sunday to set up hospital follow up with Jonathan at next available 4. No objection to discharge today. Continue home regimen for COPD" Disposition: TO HOME OR SELFCARE Time spent for discharge: 32 minutes Core Measure Documentation - Palliative Care Palliative Care/ Comfort Measures: Not Applicable - Core Measures Any of the following diagnoses?: none - VTE Discharge Requirements Deep Vein Thrombosis/Pulmonary Embolism Present on Admission: No Has pt received <5 days of overlap therapy or INR<2.0: No Anticoagulant overlap therapy prescribed at discharge: No Contraindication No Overlap Therapy order at DC: Not Indicated Exam - Physical Exam Narrative exam: GEN: WDWN, NAD, AWAKE, ALERT, ORIENTATED 3 HEENT: NCAT, EOMI, PERRL, OP Clear NECK: supple, no adenopathy, no thyromegaly, no JVD CVS/HEART: RRR, NORMAL S1S2, NO JVD, pulses present bilaterally CHEST/LUNGS: Symmetrical chest expansion, diminished breath sounds and adequate air entry bilaterally GI/Abdomen: soft, NTND, good bowel sounds, no guarding or rebound /Bladder: no suprapubic tenderness, no CVA or paraspinal tenderness EXT/Skin: no c/c/e, no obvious rash MSK: FROM x 4 Neuro: CN 2-12 grossly intact, no new focal deficits Psych: calm - Constitutional Vitals: Temp Pulse Resp BP Pulse Ox 98.4 F 98 H 18 124/63 97 09/22/17 05:09 09/22/17 09:15 09/22/17 09:15 09/22/17 05:09 09/22/17 09:02 Plan Activity: other (no strenous activity until cleared by pcp) Follow up with: PRIMARY MD ELISABETH [Primary Care Provider] - 7 Days ADELAIDA PERERA MD [Staff Physician] - 09/24/17 Prescriptions: predniSONE [Deltasone] 1 dose PO QDAY #12 day
--- NOTE | 2017-09-24 08:20 | XRay Report ---
FINAL REPORT EXAM: XR CHEST ROUTINE 2V HISTORY: Shortness of breath TECHNIQUE: AP and lateral chest radiographs. Note that images were obtained on 09/20/2017 but not submitted for interpretation and tell 09/24/2017 PRIORS: 12/08/2015, nuclear medicine ventilation-perfusion scan 09/20/2017 FINDINGS: No mediastinal shift. Cardiac silhouette is not enlarged. Left chest pacemaker. No pneumothorax, effusion, or focal pulmonary opacity. Linear left basilar opacity may represent atelectasis versus scarring. No acute skeletal finding. IMPRESSION: No focal airspace disease.
== END 2017-09-22 15:30 | disposition home or self-care (01) | DRG 190 ==
LOC: ED 19:39 → 4A 09-21 02:57
PROVIDERS: ADMIT Internal Medicine; ATTEND Internal Medicine
DX: J44.1 Chronic obstructive pulmonary disease with (acute) exacerbation (principal); I26.99 Other pulmonary embolism without acute cor pulmonale; J96.11 Chronic respiratory failure with hypoxia; I13.0 Hypertensive heart and chronic kidney disease with heart failure and stage 1 through stage 4 chronic kidney disease, or unspecified chronic kidney disease; N17.9 Acute kidney failure, unspecified; I48.91 Unspecified atrial fibrillation; E78.5 Hyperlipidemia, unspecified; R07.9 Chest pain, unspecified; N18.3 Chronic kidney disease, stage 3 (moderate); I50.9 Heart failure, unspecified; I25.10 Atherosclerotic heart disease of native coronary artery without angina pectoris; M19.90 Unspecified osteoarthritis, unspecified site; K21.9 Gastro-esophageal reflux disease without esophagitis; F17.200 Nicotine dependence, unspecified, uncomplicated; I45.10 Unspecified right bundle-branch block; Z95.0 Presence of cardiac pacemaker; Z99.81 Dependence on supplemental oxygen; Z86.73 Personal history of transient ischemic attack (TIA), and cerebral infarction without residual deficits; Z79.899 Other long term (current) drug therapy; Z88.6 Allergy status to analgesic agent; Z88.0 Allergy status to penicillin; Z88.2 Allergy status to sulfonamides; I25.2 Old myocardial infarction; Z90.710 Acquired absence of both cervix and uterus; Z98.49 Cataract extraction status, unspecified eye; Z82.49 Family history of ischemic heart disease and other diseases of the circulatory system
CPT/HCPCS: 36415; 71020; 78582; 80048; 80053; 81001; 82550; 82553; 83690; 83880; 84484; 85025; 85379; 93005; 93010; 93970; 94640; 94760; 96374; 96375; 96376; 99285; A9540; A9558; J1650; J2270; J2930

== ENCOUNTER 2018-03-05 11:47 | Outpatient (CLI) | payer MEDICARE | END 2018-03-05 11:48 | disposition home or self-care (01) | LOC: LAB 11:47 | PROVIDERS: ATTEND Internal Medicine Nephrology | DX: I13.0 Hypertensive heart and chronic kidney disease with heart failure and stage 1 through stage 4 chronic kidney disease, or unspecified chronic kidney disease (principal); I50.9 Heart failure, unspecified; N18.4 Chronic kidney disease, stage 4 (severe); J44.9 Chronic obstructive pulmonary disease, unspecified; Z87.891 Personal history of nicotine dependence | CPT/HCPCS: 36415; 80048; 83735; 84100 ==

== ENCOUNTER 2018-03-11 06:27 | Inpatient (IN) | payer MEDICARE ==
[2018-03-11] MEDS ORDERED: ASPIRIN PO ONE (07:04)
[2018-03-11 07:55] LABS: Basophils % (Auto) 0.2 % (0.0-1.8); Eosinophils # (Auto) 0.2 K/mm3 (0.0-0.4); Eosinophils % (Auto) 1.8 % (0.0-4.3); Hemoglobin 10.3 gm/dl (10.1-14.3); Lymphocytes # (Auto) 0.6 K/mm3 (1.2-5.4); Lymphocytes % (Auto) 5.2 % (13.4-35.0); Mean Corpuscular HGB Conc 33 % (30-34); Mean Corpuscular Hemoglobin 29 pg (28-32); Mean Corpuscular Volume 86 fl (79-97); Monocytes # (Auto) 0.6 K/mm3 (0.0-0.8); Monocytes % (Auto) 5.2 % (0.0-7.3); Platelet Count 156 K/mm3 (140-440); Red Blood Count 3.59 M/mm3 (3.65-5.03); Red Cell Distribution Width 15.3 % (13.2-15.2)
[2018-03-11 08:09] LABS: BUN/Creatinine Ratio 13; Blood Urea Nitrogen 24 mg/dL (7-17); Calcium 9.2 mg/dL (8.4-10.2); Hemolysis Index 2
--- NOTE | 2018-03-11 10:32 | Emergency Department Report ---
ED Chest Pain HPI - General Chief Complaint: Chest Pain Stated Complaint: CHEST PAIN Time Seen by Provider: 03/11/18 10:11 Source: patient, EMS Mode of arrival: Stretcher Limitations: Other - History of Present Illness Initial Comments: This is a pleasant and otherwise healthy 77-year-old -[place] female who presents to the emergency department with a chief complaint of chest pain since this morning described as sharp and radiating from the right side of the chest to the left side of the chest with a score of 8 out of 10, headache which also started this morning and radiates across the frontal aspect, and nausea vomiting and diarrhea 6 this morning. She states that over the weekend she may have overexerted herself. She went shopping with her family and out to eat. She states that on Sunday which was yesterday she had difficulty with ambulation and felt very weak. She states that she felt exhausted. She does require oxygen at 3 L 24 hours a day. With regards to her chest pain, she has had similar episodes in the past. Last year around she was evaluated for similar chest pain. She isn't sure if she had a heart cath at that time. She does have a pacemaker. She also admits that she occasionally has high potassium. She is being seen by her readiness paraprofessional for this. She states that she is compliant with her medications and requires breathing treatments throughout the day. She also reports that with regards to the chest pain it is reproducible with movement. With regards to her ADLs, she is ambulatory and able to care for herself. She denies fever or URI symptoms. The patient does not drink any alcohol she also does not partake in any illicit drug use, she stopped smoking in 2003. -: Gradual, days(s) (2) Onset: during rest Pain Radiation: other (across the chest.) Severity scale (0 -10): 8 Quality: sharp Consistency: constant Improves With: rest Worsens With: movement re: nausea, vomting Other Symptoms: cough. denies: fever, syncope, rash, acid taste in mouth, leg swelling, palpitations, burping Treatments Prior to Arrival: oxygen Aspirin use within the Past 7 Days: (0) No - Related Data Home Medications Medication Instructions Recorded Confirmed Last Taken Mirtazapine [Remeron] 30 mg PO QHS PRN 06/30/17 05/14/18 Unknown traMADol [Ultram 50 MG tab] 50 mg PO QID PRN 04/27/17 03/11/18 Unknown Allergies Allergy/AdvReac Type Severity Reaction Status Date / Time aspirin Allergy Hives Verified 04/16/17 13:55 Penicillins Allergy Hives Verified 04/16/17 13:55 Sulfa (Sulfonamide Allergy Hives Verified 04/16/17 13:55 Antibiotics) Heart Score - HEART Score History: Moderately suspicious EKG: Non-specific Age: > 65 Risk factors: > 3 risk factors or hx of atherosclerotic disease Troponin: < normal limit HEART Score: 6 ED Review of Systems ROS: Stated complaint: CHEST PAIN Other details as noted in HPI Constitutional: weakness Eyes: as per HPI ENT: as per HPI Respiratory: cough, SOB with exertion Cardiovascular: as per HPI Endocrine: see HPI Gastrointestinal: as per HPI Genitourinary: as per HPI Musculoskeletal: as per HPI Skin: as per HPI Neurological: as per HPI Psychiatric: as per HPI Hematological/Lymphatic: as per HPI ED Past Medical Hx - Past Medical History Previous Medical History?: Yes Hx Hypertension: Yes Hx CVA: Yes (x 2) Hx Heart Attack/AMI: Yes (2009) Hx Congestive Heart Failure: Yes Hx Diabetes: No Hx Renal Disease: Yes Hx Arthritis: Yes Hx Asthma: Yes Hx COPD: Yes Hx HIV: No Additional medical history: Chronic Bronchitis - Surgical History Past Surgical History?: Yes Hx Coronary Stent: No Hx Open Heart Surgery: No Hx Pacemaker: Yes Hx Internal Defibrillator: No Hx Cholecystectomy: No Hx Appendectomy: No Hx Breast Surgery: No Additional Surgical History: Left Knee Surgery , demand pacemaker (90's). Hyst. catarac removal in both eyes - Social History Smoking Status: Former Smoker Substance Use Type: None - Medications Home Medications: Home Medications Medication Instructions Recorded Confirmed Last Taken Type Mirtazapine [Remeron] 30 mg PO QHS PRN 04/27/17 03/11/18 Unknown History traMADol [Ultram 50 MG tab] 50 mg PO QID PRN 04/27/17 03/11/18 Unknown History ED Physical Exam - General Limitations: Other General appearance: alert, in no apparent distress - Head Head exam: Present: atraumatic, normocephalic - Eye Eye exam: Present: normal appearance - ENT ENT exam: Present: mucous membranes moist - Neck Neck exam: Present: normal inspection - Respiratory Respiratory exam: Present: normal lung sounds bilaterally, decreased breath sounds (in the bases). Absent: respiratory distress - Cardiovascular Cardiovascular Exam: Present: regular rate, normal rhythm, normal heart sounds - GI/Abdominal GI/Abdominal exam: Present: soft, normal bowel sounds. Absent: distended, tenderness - Rectal Rectal exam: Present: deferred - Extremities Exam Extremities exam: Present: normal inspection, full ROM. Absent: pedal edema, joint swelling, calf tenderness - Back Exam Back exam: Present: normal inspection - Neurological Exam Neurological exam: Present: alert, oriented X3, CN II-XII intact, normal gait. Absent: altered - Psychiatric Psychiatric exam: Present: normal affect, normal mood - Skin Skin exam: Present: warm, dry, intact, normal color ED Course Vital Signs 03/11/18 03/11/18 03/11/18 06:52 06:59 07:04 Temperature 99.2 F 99.3 F Pulse Rate 93 H 90 Pulse Rate [ Anterior Bilateral Throughout] Respiratory 21 28 H Rate Respiratory Rate [Anterior Bilateral Throughout] Blood Pressure 126/71 Blood Pressure 124/71 [Left] O2 Sat by Pulse 97 97 Oximetry 03/11/18 03/11/18 03/11/18 07:05 11:35 12:11 Temperature Pulse Rate Pulse Rate [ 89 Anterior Bilateral Throughout] Respiratory 20 26 H Rate Respiratory 18 Rate [Anterior Bilateral Throughout] Blood Pressure Blood Pressure [Left] O2 Sat by Pulse 100 Oximetry 03/11/18 12:24 Temperature Pulse Rate Pulse Rate [ 90 Anterior Bilateral Throughout] Respiratory Rate Respiratory 18 Rate [Anterior Bilateral Throughout] Blood Pressure Blood Pressure [Left] O2 Sat by Pulse Oximetry - Reevaluation(s) Reevaluation #1: 03/11/18 13:30 I discussed case with the hospitalist, we will go ahead and admit the patient for COPD exacerbation as well as nausea vomiting and diarrhea. ED Medical Decision Making - Lab Data Result diagrams: 03/11/18 07:19 03/11/18 07:19 Critical care attestation.: If time is entered above; I have spent that time in minutes in the direct care of this critically ill patient, excluding procedure time. ED Disposition Clinical Impression: COPD with exacerbation, Nausea vomiting and diarrhea Chest pain Qualifiers: Chest pain type: other chest pain Qualified Code(s): R07.89 - Other chest pain ; R07.8 - Other chest pain Disposition: DC-09 OP ADMIT IP TO THIS HOSP Is pt being admited?: Yes Does the pt Need Aspirin: No Condition: Stable Instructions: Chronic Obstructive Pulmonary Disease (ED), Chest Pain (ED) Referrals: JAYDEN WYLIE MD [Primary Care Provider] - 3-5 Days
[2018-03-11] MEDS ORDERED: DUONEB *Not for PRN Use IH ONE (10:38)
[2018-03-11] MEDS ORDERED: ZOFRAN IV ONE (10:39)
[2018-03-11] MEDS ORDERED: MORPHINE IV ONE ×2 (10:39→13:55)
--- NOTE | 2018-03-11 11:06 | XRay Report ---
CHEST XRAY, 2 VIEWS: History: Chest pain. Findings: There is mild diffuse interstitial coarsening. The lungs are hyperexpanded but clear. No infiltrate, pleural fluid or pneumothorax is detected. The cardiac silhouette and pulmonary vasculature are within normal limits for technique. The bony thorax is unremarkable. 2-lead pacemaker device is in position. No change since 09/20/17. IMPRESSION: Changes consistent with COPD. No acute cardiopulmonary process.
[2018-03-11 11:21] LABS: Lipase 41 units/L (13-60)
[2018-03-11] MEDS ORDERED: MORPHINE ONE (13:42)
--- NOTE | 2018-03-11 23:16 | Event Note ---
Date: 03/11/18 See Dictated H/p in reports
[2018-03-11] MEDS ORDERED: SODIUM CHLORIDE FLUSH SYRINGE 10 ML IV PRN (23:17)
[2018-03-11] MEDS ORDERED: TYLENOL PO PRN (23:17)
[2018-03-11] MEDS ORDERED: MORPHINE IV PRN (23:17)
[2018-03-11] MEDS ORDERED: ZOFRAN IV PRN (23:17)
[2018-03-11] MEDS ORDERED: ULTRAM PO PRN (23:18)
[2018-03-11] MEDS ORDERED: REMERON PO PRN (23:18)
[2018-03-11] MEDS ORDERED: DUONEB *Not for PRN Use IH (23:21)
[2018-03-11] MEDS ORDERED: PROVENTIL IH PRN (23:34)
[2018-03-12 06:11] LABS: Hematocrit 28.7 % (30.3-42.9); Hemoglobin 9.8 gm/dl (10.1-14.3); Mean Corpuscular HGB Conc 34 % (30-34); Mean Corpuscular Hemoglobin 29 pg (28-32); Mean Corpuscular Volume 85 fl (79-97); Platelet Count 135 K/mm3 (140-440); Red Blood Count 3.38 M/mm3 (3.65-5.03); Red Cell Distribution Width 15.1 % (13.2-15.2)
[2018-03-12 06:31] LABS: Calcium 8.4 mg/dL (8.4-10.2)
[2018-03-12 07:16] LABS: Band Neutrophils # (Manual) 1.5 K/mm3; Basophils % (Manual) 0 % (0.0-1.8); Eosinophils % (Manual) 0 % (0.0-4.3); Total Cells Counted 100
[2018-03-12 07:17] LABS: Anisocytosis 1+
[2018-03-12 07:18] LABS: Platelet Estimate Consistent w Auto; Stomatocytes Few
[2018-03-12 07:23] LABS: Albumin 3.7 g/dL (3.9-5)
[2018-03-12] MEDS ORDERED: PEPCID PO SCH (10:00)
[2018-03-12] MEDS: DUONEB *Not for PRN Use IH SCH ×4 (12:54→20:41)
--- NOTE | 2018-03-12 13:18 | Consultation ---
History of Present Illness - Reason for Consult Consult date: 03/12/18 acute renal failure, chronic renal failure, hyperkalemia - History of Present Illness The Patient is a 77-year-old AAF with medical history significant for Hypertension, COPD on home O2, SSS s/p PPM, Diastolic CHF and CKD stage 3 who presented to the ER for evaluation of chest pain. The pain started hours prior to the presentation. She described the pain as sharp, score of 8 out of 10 and was radiating from the right side of the chest to the left side of the chest. Patient also reports having 2-3 days of several episodes of watery diarrhea. Her appetite was low with decreased PO intake. Patient is being followed by our service for CKD. Her baseline creatinine is arouns 1.8. Her creatinine increased to 2.4 with K of 5.3 today. Patient denies any diplopia, vomiting, abd pain, blurry vision, dizziness, hemoptysis, fever, chills, dysuria, hematuria, dizziness or syncope. Past History Past Medical History: anemia, COPD, heart failure, hypertension, renal failure Medications and Allergies Allergies Allergy/AdvReac Type Severity Reaction Status Date / Time aspirin Allergy Hives Verified 04/16/17 13:55 Penicillins Allergy Hives Verified 04/16/17 13:55 Sulfa (Sulfonamide Allergy Hives Verified 04/16/17 13:55 Antibiotics) Home Medications Medication Instructions Recorded Confirmed Last Taken Type RX: Mirtazapine [Remeron] 30 mg PO QHS PRN 04/27/17 03/11/18 Unknown History RX: traMADol [Ultram 50 MG tab] 50 mg PO QID PRN 04/27/17 03/11/18 Unknown History Active Meds: Active Medications Acetaminophen (Tylenol) 650 mg PO Q4H PRN PRN Reason: Pain MILD(1-3)/Fever >100.5/THORNTON Albuterol (Proventil) 2.5 mg IH Q3HRT PRN PRN Reason: Wheezing Albuterol/Ipratropium (Duoneb *Not For Prn Use*) 1 ampul IH QIDRT [facility] Last Admin: 03/12/18 13:05 Dose: 1 ampul Famotidine (Pepcid) 10 mg PO BID [facility] Methylprednisolone Sodium Succinate (Solu-Medrol) 40 mg IV Q8HR [facility] Last Admin: 03/11/18 22:15 Dose: 40 mg Mirtazapine (Remeron) 30 mg PO QHS PRN PRN Reason: Insomnia Morphine Sulfate (Morphine) 2 mg IV Q4H PRN PRN Reason: Pain, Moderate (4-6) Last Admin: 03/12/18 00:33 Dose: 2 mg Ondansetron HCl (Zofran) 4 mg IV Q8H PRN PRN Reason: Nausea And Vomiting Oxycodone/Acetaminophen (Percocet 5/325) 1 tab PO Q6H PRN PRN Reason: Pain, Moderate (4-6) Sodium Chloride (Sodium Chloride Flush Syringe 10 Ml) 10 ml IV BID MANE Sodium Chloride (Sodium Chloride Flush Syringe 10 Ml) 10 ml IV PRN PRN PRN Reason: LINE FLUSH Tramadol HCl (Ultram) 50 mg PO QID PRN PRN Reason: Pain Review of Systems Constitutional: anorexia, weakness, poor appetite, no weight loss, no weight gain, no fever, no chills, no fatigue Ears, nose, mouth and throat: no epistaxis Breasts: deferred Cardiovascular: chest pain, shortness of breath, dyspnea on exertion, high blood pressure, decreased exercise tolerance, no orthopnea, no palpitations, no edema, no syncope, no lightheadedness, no leg edema Respiratory: cough, shortness of breath, dyspnea on exertion, home oxygen, no hemoptysis Gastrointestinal: nausea, diarrhea, no abdominal pain, no vomiting, no constipation, no coffee ground emesis, no melena, no jaundice Genitourinary Female: no dysuria, no hematuria Rectal: no bleeding Musculoskeletal: no redness of joints, no prior amputations Integumentary: no rash, no jaundice Neurological: no paralysis, no syncope, no change in speech, no change in mentation, no confusion Exam - Vital Signs Vital signs: Vital Signs Pulse Resp BP Pulse Ox 93 H 21 126/71 97 03/11/18 06:52 03/11/18 06:52 03/11/18 06:52 03/11/18 06:52 - General Appearance General appearance: well-developed, appears stated age, other (no distress) EENT: ATNC, PERRL, mucous membranes dry, hearing intact, vision intact Neck: Present: neck supple, trachea midline Respiratory: Clear to Ascultation Heart: regular, S1S2, no murmurs Integumentary: no rash, warm and dry Neurologic: no focal deficit, no asterixis, alert and oriented x3 Musculoskeletal: Present: other (no edema) Psychiatric: mood/affect appropriate, cooperative Results - Lab Results 03/12/18 05:58 03/12/18 05:58 Most recent lab results Calcium 8.4 mg/dL (8.4-10.2) 03/12/18 05:58 Assessment and Plan 1. 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 Start on IV fluids. Monitor renal function. Urine studies ordered. Renal US if no improvement. 2. Hyperkalemia: Started on Dextrose containing IV fluids. Monitor. 3. Chest pain: Followed by Cards. 4. Chronic respiratory failure: COPD on home O2. 5. Chronic Anemia.
[2018-03-12] MEDS: PEPCID PO SCH ×2 (13:39→22:04)
[2018-03-12] MEDS: SODIUM CHLORIDE FLUSH SYRINGE 10 ML IV SCH ×2 (13:40→22:04)
[2018-03-12] MEDS: PERCOCET 5/325 PO PRN (13:48)
--- NOTE | 2018-03-12 14:10 | Consultation ---
History of Present Illness Consult date: 03/12/18 Consult reason: chest pain History of present illness: The patient is a 77-year-old woman with a history of COPD, sick sinus syndrome status post pacemaker implant. She also has a long history of atypical chest pain, which has culminated in extensive prior ischemic cardiac workup. Cardiac catheterization in 2008 was normal coronaries. Several stress tests have also been negative including a thallium stress test done just 9 months ago at [facility]. Patient presents currently with atypical chest pain, nonexertional right-sided chest pain which lasted seconds. The chest pain was poorly characterized and did not appear anginal in character. EKG was normal sinus rhythm, with right bundle branch block, unchanged from baseline ECGs. Serial troponin levels were negative. The patient was ordered for another stress test which she was reluctant to undergo. She currently feels well with no further chest pain. Past History Past Medical History: COPD, hypertension, other (sick sinus syndrome) Past Surgical History: Other (pacemaker implant) Medications and Allergies Allergies Allergy/AdvReac Type Severity Reaction Status Date / Time aspirin Allergy Hives Verified 04/16/17 13:55 Penicillins Allergy Hives Verified 04/16/17 13:55 Sulfa (Sulfonamide Allergy Hives Verified 04/16/17 13:55 Antibiotics) Home Medications Medication Instructions Recorded Confirmed Last Taken Type Mirtazapine [Remeron] 30 mg PO QHS PRN 04/27/17 03/11/18 Unknown History traMADol [Ultram 50 MG tab] 50 mg PO QID PRN 04/27/17 03/11/18 Unknown History Active Meds: Active Medications Acetaminophen (Tylenol) 650 mg PO Q4H PRN PRN Reason: Pain MILD(1-3)/Fever >100.5/THORNTON Albuterol (Proventil) 2.5 mg IH Q3HRT PRN PRN Reason: Wheezing Albuterol/Ipratropium (Duoneb *Not For Prn Use*) 1 ampul IH QIDRT [facility] Last Admin: 03/12/18 13:05 Dose: 1 ampul Famotidine (Pepcid) 10 mg PO BID [facility] Last Admin: 03/12/18 13:39 Dose: 10 mg Dextrose/Sodium Chloride (D5ns) 1,000 mls @ 75 mls/hr IV DIRECT [facility] Methylprednisolone Sodium Succinate (Solu-Medrol) 40 mg IV Q8HR [facility] Last Admin: 03/12/18 13:40 Dose: 40 mg Mirtazapine (Remeron) 30 mg PO QHS PRN PRN Reason: Insomnia Morphine Sulfate (Morphine) 2 mg IV Q4H PRN PRN Reason: Pain, Moderate (4-6) Last Admin: 03/12/18 00:33 Dose: 2 mg Ondansetron HCl (Zofran) 4 mg IV Q8H PRN PRN Reason: Nausea And Vomiting Oxycodone/Acetaminophen (Percocet 5/325) 1 tab PO Q6H PRN PRN Reason: Pain, Moderate (4-6) Last Admin: 03/12/18 13:48 Dose: 1 tab Sodium Chloride (Sodium Chloride Flush Syringe 10 Ml) 10 ml IV BID [facility] Last Admin: 03/12/18 13:40 Dose: 10 ml Sodium Chloride (Sodium Chloride Flush Syringe 10 Ml) 10 ml IV PRN PRN PRN Reason: LINE FLUSH Tramadol HCl (Ultram) 50 mg PO QID PRN PRN Reason: Pain Review of Systems Cardiovascular: chest pain, shortness of breath, no orthopnea, no palpitations, no rapid/irregular heart beat, no edema, no syncope, no lightheadedness Physical Examination Vital Signs Pulse Resp BP Pulse Ox 93 H 21 126/71 97 03/11/18 06:52 03/11/18 06:52 03/11/18 06:52 03/11/18 06:52 General appearance: no acute distress HEENT: Positive: PERRL Cardiac: Positive: Reg Rate and Rhythm Lungs: Positive: Decreased Breath Sounds Neuro: Positive: Grossly Intact Abdomen: Positive: Soft Female genitourinary: deferred Skin: Positive: Clear Extremities: Absent: edema Results 03/12/18 05:58 03/12/18 05:58 Cardiac Enzymes 03/12/18 Range/Units 05:58 AST 16 (5-40) units/L CBC 03/12/18 Range/Units 05:58 WBC 19.3 H (4.5-11.0) K/mm3 RBC 3.38 L (3.65-5.03) M/mm3 Hgb 9.8 L (10.1-14.3) gm/dl Hct 28.7 L (30.3-42.9) % Plt Count 135 L (140-440) K/mm3 Comprehensive Metabolic Panel 03/12/18 Range/Units 05:58 Sodium 141 (137-145) mmol/L Potassium 5.3 H (3.6-5.0) mmol/L Chloride 101.8 (98-107) mmol/L Carbon Dioxide 23 D (22-30) mmol/L BUN 37 H (7-17) mg/dL Creatinine 2.5 H (0.7-1.2) mg/dL Glucose 96 (65-100) mg/dL Calcium 8.4 (8.4-10.2) mg/dL AST 16 (5-40) units/L ALT 10 (7-56) units/L Alkaline Phosphatase 75 (35-129) units/L Total Protein 6.2 L (6.3-8.2) g/dL Albumin 3.7 L (3.9-5) g/dL EKG interpretations - Telemetry EKG Rhythm: Sinus Rhythm Assessment and Plan - Patient Problems (1) Chest pain Current Visit: Yes Status: Acute Qualifiers: Chest pain type: other chest pain Qualified Code(s): R07.89 - Other chest pain; R07.8 - Other chest pain Plan to address problem: Patient's chest pain is atypical, does not appear anginal. EKGs and serial cardiac enzymes are negative. Previous extensive ischemic workup is negative. We will cancel the current stress test and patient is stable for cardiac discharge to follow-up with me in the office in one week. I will defer to the medical service for further workup and management of her anemia, hematocrit is 28 and her chronic kidney disease, with creatinine of 2.5.
--- NOTE | 2018-03-12 14:36 | History and Physical Report ---
History of Present Illness Date of examination: 03/11/18 Date of admission: 03/11/18 13:32 Chief complaint: CC: Chest pain and SOb 3 days History of present illness: History of Present Illness: The patient is a 77-year-old woman with a history of COPD, sick sinus syndrome status post pacemaker implant. She also has a long history of atypical chest pain, which has culminated in extensive prior ischemic cardiac workup. Cardiac catheterization in 2008 was normal coronaries. Several stress tests have also been negative including a thallium stress test done just 9 months ago at [facility]. Patient presents currently with atypical chest pain, nonexertional right-sided chest pain which lasted seconds. The chest pain was poorly characterized and did not appear anginal in character. EKG was normal sinus rhythm, with right bundle branch block, unchanged from baseline ECGs. Serial troponin levels were negative. The patient was ordered for another stress test which she was reluctant to undergo. She currently feels well with no further chest pain. Past History Past Medical History: COPD, hypertension, other (sick sinus syndrome) Past Surgical History: Other (pacemaker implant) Family History Htn Social History Smoking Medications and Allergies Allergies Allergy/AdvReac Type Severity Reaction Status Date / Time aspirin Allergy Hives Verified 04/16/17 13:55 Penicillins Allergy Hives Verified 04/16/17 13:55 Sulfa (Sulfonamide Allergy Hives Verified 04/16/17 13:55 Antibiotics) Home Medications Medication Instructions Recorded Confirmed Last Taken Type Mirtazapine [Remeron] 30 mg PO QHS PRN 04/27/17 03/11/18 Unknown History traMADol [Ultram 50 MG tab] 50 mg PO QID PRN 04/27/17 03/11/18 Unknown History Past History Past Medical History: COPD, hypertension, other (sick sinus syndrome) Past Surgical History: Other (pacemaker implant) Medications and Allergies Allergies Allergy/AdvReac Type Severity Reaction Status Date / Time aspirin Allergy Hives Verified 04/16/17 13:55 Penicillins Allergy Hives Verified 04/16/17 13:55 Sulfa (Sulfonamide Allergy Hives Verified 04/16/17 13:55 Antibiotics) Home Medications Medication Instructions Recorded Confirmed Last Taken Type Mirtazapine [Remeron] 30 mg PO QHS PRN 04/27/17 03/11/18 Unknown History traMADol [Ultram 50 MG tab] 50 mg PO QID PRN 04/27/17 03/11/18 Unknown History Active Meds: Active Medications Acetaminophen (Tylenol) 650 mg PO Q4H PRN PRN Reason: Pain MILD(1-3)/Fever >100.5/THORNTON Albuterol (Proventil) 2.5 mg IH Q3HRT PRN PRN Reason: Wheezing Albuterol/Ipratropium (Duoneb *Not For Prn Use*) 1 ampul IH QIDRT [facility] Last Admin: 03/12/18 13:05 Dose: 1 ampul Famotidine (Pepcid) 10 mg PO BID [facility] Last Admin: 03/12/18 13:39 Dose: 10 mg Dextrose/Sodium Chloride (D5ns) 1,000 mls @ 75 mls/hr IV DIRECT [facility] Methylprednisolone Sodium Succinate (Solu-Medrol) 40 mg IV Q8HR [facility] Last Admin: 03/12/18 13:40 Dose: 40 mg Mirtazapine (Remeron) 30 mg PO QHS PRN PRN Reason: Insomnia Morphine Sulfate (Morphine) 2 mg IV Q4H PRN PRN Reason: Pain, Moderate (4-6) Last Admin: 03/12/18 00:33 Dose: 2 mg Ondansetron HCl (Zofran) 4 mg IV Q8H PRN PRN Reason: Nausea And Vomiting Oxycodone/Acetaminophen (Percocet 5/325) 1 tab PO Q6H PRN PRN Reason: Pain, Moderate (4-6) Last Admin: 03/12/18 13:48 Dose: 1 tab Sodium Chloride (Sodium Chloride Flush Syringe 10 Ml) 10 ml IV BID [facility] Last Admin: 03/12/18 13:40 Dose: 10 ml Sodium Chloride (Sodium Chloride Flush Syringe 10 Ml) 10 ml IV PRN PRN PRN Reason: LINE FLUSH Tramadol HCl (Ultram) 50 mg PO QID PRN PRN Reason: Pain Review of Systems All systems: negative Constitutional: no weight loss, no weight gain, no fever, no chills, no sweats, no night sweats Ears, nose, mouth and throat: no sore throat, no swelling in mouth, no swelling in throat, no odynophagia Cardiovascular: chest pain, orthopnea, shortness of breath, dyspnea on exertion Respiratory: dyspnea on exertion Gastrointestinal: no abdominal pain, no nausea, no vomiting, no diarrhea Menstruation: ammenorrhea Rectal: no pain Integumentary: no rash, no pruritis, no redness, no sores, no wounds, no jaundice, no boils Neurological: no seizures, no syncope, no tremors, no ataxia Endocrine: no cold intolerance, no heat intolerance Hematologic/Lymphatic: no easy bruising, no easy bleeding Allergic/Immunologic: no urticaria, no allergic rhinitis, no wheezing Exam - Constitutional Vitals: Temp Pulse Resp BP Pulse Ox 99.4 F 109 H 20 100/42 97 03/12/18 08:30 03/12/18 13:05 03/12/18 13:05 03/12/18 08:30 03/12/18 13:00 General appearance: Present: no acute distress, mild distress, well-nourished - EENT Eyes: Present: PERRL ENT: hearing intact, clear oral mucosa - Neck Neck: Present: supple, normal ROM - Respiratory Respiratory effort: normal Respiratory: bilateral: CTA - Cardiovascular Heart rate: 78 Rhythm: regular Heart Sounds: Present: S1 & S2. Absent: rub, click - Extremities Extremities: pulses symmetrical, No edema Peripheral Pulses: within normal limits - Abdominal General gastrointestinal: Present: soft, non-tender, non-distended, normal bowel sounds Female genitourinary: Present: normal - Rectal Rectal Exam: deferred - Integumentary Integumentary: Present: clear, warm, dry - Musculoskeletal Musculoskeletal: gait normal, strength equal bilaterally - Psychiatric Psychiatric: appropriate mood/affect, intact judgment & insight - Neurologic Neurologic: CNII-XII intact, moves all extremities - Allied Health Allied health notes reviewed: nursing, case management Results - Labs CBC & Chem 7: 03/12/18 05:58 03/12/18 05:58 Labs: Laboratory Last Values WBC 19.3 K/mm3 (4.5-11.0) H 03/12/18 05:58 RBC 3.38 M/mm3 (3.65-5.03) L 03/12/18 05:58 Hgb 9.8 gm/dl (10.1-14.3) L 03/12/18 05:58 Hct 28.7 % (30.3-42.9) L 03/12/18 05:58 MCV 85 fl (79-97) 03/12/18 05:58 MCH 29 pg (28-32) 03/12/18 05:58 MCHC 34 % (30-34) 03/12/18 05:58 RDW 15.1 % (13.2-15.2) 03/12/18 05:58 Plt Count 135 K/mm3 (140-440) L 03/12/18 05:58 Lymph % (Auto) 5.2 % (13.4-35.0) L 03/11/18 07:19 Pettis % (Auto) 5.2 % (0.0-7.3) 03/11/18 07:19 Eos % (Auto) 1.8 % (0.0-4.3) 03/11/18 07:19 Baso % (Auto) 0.2 % (0.0-1.8) 03/11/18 07:19 Lymph # 0.6 K/mm3 (1.2-5.4) L 03/11/18 07:19 Pettis # 0.6 K/mm3 (0.0-0.8) 03/11/18 07:19 Eos # 0.2 K/mm3 (0.0-0.4) 03/11/18 07:19 Baso # 0.0 K/mm3 (0.0-0.1) 03/11/18 07:19 Add Manual Diff Complete 03/12/18 05:58 Total Counted 100 03/12/18 05:58 Seg Neutrophils % Inspector Publications 03/12/18 05:58 Seg Neuts % (Manual) 80.0 % (40.0-70.0) H 03/12/18 05:58 Band Neutrophils % 8.0 % 03/12/18 05:58 Lymphocytes % (Manual) 6.0 % (13.4-35.0) L 03/12/18 05:58 Reactive Lymphs % (Man) 0 % 03/12/18 05:58 Monocytes % (Manual) 6.0 % (0.0-7.3) 03/12/18 05:58 Eosinophils % (Manual) 0 % (0.0-4.3) 03/12/18 05:58 Basophils % (Manual) 0 % (0.0-1.8) 03/12/18 05:58 Metamyelocytes % 0 % 03/12/18 05:58 Myelocytes % 0 % 03/12/18 05:58 Promyelocytes % 0 % 03/12/18 05:58 Blast Cells % 0 % 03/12/18 05:58 Nucleated RBC % Not Reportable 03/12/18 05:58 Seg Neutrophils # 9.5 K/mm3 (1.8-7.7) H 03/11/18 07:19 Seg Neutrophils # Man 15.4 K/mm3 (1.8-7.7) H 03/12/18 05:58 Band Neutrophils # 1.5 K/mm3 03/12/18 05:58 Lymphocytes # (Manual) 1.2 K/mm3 (1.2-5.4) 03/12/18 05:58 Abs React Lymphs (Man) 0.0 K/mm3 03/12/18 05:58 Monocytes # (Manual) 1.2 K/mm3 (0.0-0.8) H 03/12/18 05:58 Eosinophils # (Manual) 0.0 K/mm3 (0.0-0.4) 03/12/18 05:58 Basophils # (Manual) 0.0 K/mm3 (0.0-0.1) 03/12/18 05:58 Metamyelocytes # 0.0 K/mm3 03/12/18 05:58 Myelocytes # 0.0 K/mm3 03/12/18 05:58 Promyelocytes # 0.0 K/mm3 03/12/18 05:58 Blast Cells # 0.0 K/mm3 03/12/18 05:58 WBC Morphology Not Reportable 03/12/18 05:58 Hypersegmented Neuts Not Reportable 03/12/18 05:58 Hyposegmented Neuts Not Reportable 03/12/18 05:58 Hypogranular Neuts Not Reportable 03/12/18 05:58 Smudge Cells Not Reportable 03/12/18 05:58 Toxic Granulation Not Reportable 03/12/18 05:58 Toxic Vacuolation Not Reportable 03/12/18 05:58 Dohle Bodies Not Reportable 03/12/18 05:58 Pelger-Huet Anomaly Not Reportable 03/12/18 05:58 Christopher Rods Not Reportable 03/12/18 05:58 Platelet Estimate Consistent w auto 03/12/18 05:58 Clumped Platelets Not Reportable 03/12/18 05:58 Plt Clumps, EDTA Not Reportable 03/12/18 05:58 Large Platelets Not Reportable 03/12/18 05:58 Giant Platelets Not Reportable 03/12/18 05:58 Platelet Satelliting Not Reportable 03/12/18 05:58 Plt Morphology Comment Not Reportable 03/12/18 05:58 RBC Morphology Not Reportable 03/12/18 05:58 Dimorphic RBCs Not Reportable 03/12/18 05:58 Polychromasia Not Reportable 03/12/18 05:58 Hypochromasia Not Reportable 03/12/18 05:58 Poikilocytosis Not Reportable 03/12/18 05:58 Anisocytosis 1+ 03/12/18 05:58 Microcytosis Not Reportable 03/12/18 05:58 Macrocytosis Not Reportable 03/12/18 05:58 Spherocytes Not Reportable 03/12/18 05:58 Pappenheimer Bodies Not Reportable 03/12/18 05:58 Sickle Cells Not Reportable 03/12/18 05:58 Target Cells Not Reportable 03/12/18 05:58 Tear Drop Cells Not Reportable 03/12/18 05:58 Ovalocytes Not Reportable 03/12/18 05:58 Stomatocytes Few 03/12/18 05:58 Helmet Cells Not Reportable 03/12/18 05:58 [place] Bodies Not Reportable 03/12/18 05:58 Hestand Rings Not Reportable 03/12/18 05:58 [place] Cells Not Reportable 03/12/18 05:58 Bite Cells Not Reportable 03/12/18 05:58 Crenated Cell Not Reportable 03/12/18 05:58 Elliptocytes Not Reportable 03/12/18 05:58 Acanthocytes (Spur) Not Reportable 03/12/18 05:58 Rouleaux Not Reportable 03/12/18 05:58 Hemoglobin C Crystals Not Reportable 03/12/18 05:58 Schistocytes Not Reportable 03/12/18 05:58 Malaria parasites Not Reportable 03/12/18 05:58 Andre Bodies Not Reportable 03/12/18 05:58 Hem Pathologist Commnt No 03/12/18 05:58 Sodium 141 mmol/L (137-145) 03/12/18 05:58 Potassium 5.3 mmol/L (3.6-5.0) H 03/12/18 05:58 Chloride 101.8 mmol/L (98-107) 03/12/18 05:58 Carbon Dioxide 23 mmol/L (22-30) D 03/12/18 05:58 Anion Gap 22 mmol/L 03/12/18 05:58 BUN 37 mg/dL (7-17) H 03/12/18 05:58 Creatinine 2.5 mg/dL (0.7-1.2) H 03/12/18 05:58 Estimated GFR 23 ml/min 03/12/18 05:58 BUN/Creatinine Ratio 15 % 03/12/18 05:58 Glucose 96 mg/dL (65-100) 03/12/18 05:58 Hemoglobin A1c 5.2 % (4-6) 03/12/18 05:58 Calcium 8.4 mg/dL (8.4-10.2) 03/12/18 05:58 Total Bilirubin 0.50 mg/dL (0.1-1.2) 03/12/18 05:58 AST 16 units/L (5-40) 03/12/18 05:58 ALT 10 units/L (7-56) 03/12/18 05:58 Alkaline Phosphatase 75 units/L (35-129) 03/12/18 05:58 Troponin T 0.011 ng/mL (0.00-0.029) 03/12/18 13:32 Total Protein 6.2 g/dL (6.3-8.2) L 03/12/18 05:58 Albumin 3.7 g/dL (3.9-5) L 03/12/18 05:58 Albumin/Globulin Ratio 1.5 % 03/12/18 05:58 Amylase 139 units/L (27-131) H 03/11/18 10:38 Lipase 41 units/L (13-60) 03/11/18 10:38 Short CBC 03/12/18 Range/Units 05:58 WBC 19.3 H (4.5-11.0) K/mm3 Hgb 9.8 L (10.1-14.3) gm/dl Hct 28.7 L (30.3-42.9) % Plt Count 135 L (140-440) K/mm3 BMP 03/12/18 05:58 Sodium 141 Potassium 5.3 H Chloride 101.8 Carbon Dioxide 23 D BUN 37 H Creatinine 2.5 H Glucose 96 Calcium 8.4 Cardiac Enzymes 03/12/18 03/12/18 Range/Units 05:58 13:32 Troponin T 0.013 0.011 (0.00-0.029) ng/mL Liver Function 03/12/18 Range/Units 05:58 Total Bilirubin 0.50 (0.1-1.2) mg/dL AST 16 (5-40) units/L ALT 10 (7-56) units/L Alkaline Phosphatase 75 (35-129) units/L Albumin 3.7 L (3.9-5) g/dL - Imaging and Cardiology EKG: report reviewed Chest x-ray: report reviewed Assessment and Plan Advance Directives: Yes (Full code) VTE prophylaxis?: Chemical Plan of care discussed with patient/family: Yes - Patient Problems (1) Acute diastolic (congestive) heart failure Current Visit: Yes Status: Acute Plan to address problem: Cont Lasix ECHO (2) Acute chest pain Onset Date: 05/21/16 Current Visit: No Status: Acute Plan to address problem: Atypical Defer to cardiology for stress test (3) NELIDA (acute kidney injury) Current Visit: Yes Status: Acute Plan to address problem: Will defer to Nephrolgy (4) HTN (hypertension) Current Visit: Yes Status: Chronic Qualifiers: Hypertension type: essential hypertension Qualified Code(s): I10 - Essential (primary) hypertension Plan to address problem: Cont antihypertensives (5) COPD (chronic obstructive pulmonary disease) Current Visit: Yes Status: Chronic Qualifiers: Emphysema type: unspecified Plan to address problem: Duonebs (6) DVT prophylaxis Current Visit: Yes Status: Acute Plan to address problem: On Heparin
--- NOTE | 2018-03-12 15:03 | Progress Note ---
Assessment and Plan - Patient Problems (1) Acute diastolic (congestive) heart failure Current Visit: Yes Status: Acute Plan to address problem: Cont Lasix ECHO (2) Acute chest pain Onset Date: 05/21/16 Current Visit: No Status: Acute Plan to address problem: Atypical Defer to cardiology for stress test (3) NELIDA (acute kidney injury) Current Visit: Yes Status: Acute Plan to address problem: Will defer to Nephrolgy (4) HTN (hypertension) Current Visit: Yes Status: Chronic Qualifiers: Hypertension type: essential hypertension Qualified Code(s): I10 - Essential (primary) hypertension Plan to address problem: Cont antihypertensives (5) COPD (chronic obstructive pulmonary disease) Current Visit: Yes Status: Chronic Qualifiers: Emphysema type: unspecified Plan to address problem: Duonebs (6) Leukocytosis Current Visit: Yes Status: Acute Plan to address problem: Sec to steroids (7) DVT prophylaxis Current Visit: Yes Status: Acute Plan to address problem: On Heparin Subjective Date of service: 03/12/18 Principal diagnosis: SOB better Interval history: Chest pain resolved Objective - Constitutional Vitals: Vital Signs - 12hr 03/12/18 03/12/18 03/12/18 04:21 08:29 08:30 Temperature 98.2 F 99.4 F Pulse Rate 84 92 H 94 H Pulse Rate [ Anterior Bilateral Throughout] Respiratory 18 20 Rate Respiratory Rate [Anterior Bilateral Throughout] Blood Pressure 114/55 98/40 100/42 O2 Sat by Pulse 95 96 96 Oximetry 03/12/18 03/12/18 13:00 13:05 Temperature Pulse Rate Pulse Rate [ 109 H Anterior Bilateral Throughout] Respiratory Rate Respiratory 20 Rate [Anterior Bilateral Throughout] Blood Pressure O2 Sat by Pulse 97 Oximetry General appearance: Present: no acute distress, well-nourished - EENT Eyes: PERRL, EOM intact ENT: hearing intact, clear oral mucosa Ears: bilateral: normal - Neck Neck: supple, normal ROM - Respiratory Respiratory effort: normal Respiratory: bilateral: rales - Breasts Breasts: normal - Cardiovascular Heart rate: 80 Rhythm: regular Heart Sounds: Present: S1 & S2. Absent: gallop, rub Extremities: no ischemia, pulses intact, No edema, normal color, Full ROM - Gastrointestinal General gastrointestinal: Present: soft, non-tender, non-distended, normal bowel sounds - Genitourinary Female genitourinary: normal - Integumentary Integumentary: clear, warm, dry - Musculoskeletal Musculoskeletal: 1, strength equal bilaterally - Neurologic Neurologic: moves all extremities - Psychiatric Psychiatric: memory intact, appropriate mood/affect, intact judgment & insight - Labs CBC & Chem 7: 03/12/18 05:58 18 05:58 Labs: Abnormal lab results 03/12/18 03/12/18 Range/Units 05:58 05:58 WBC 19.3 H (4.5-11.0) K/mm3 RBC 3.38 L (3.65-5.03) M/mm3 Hgb 9.8 L (10.1-14.3) gm/dl Hct 28.7 L (30.3-42.9) % Plt Count 135 L (140-440) K/mm3 Seg Neuts % (Manual) 80.0 H (40.0-70.0) % Lymphocytes % (Manual) 6.0 L (13.4-35.0) % Seg Neutrophils # Man 15.4 H (1.8-7.7) K/mm3 Monocytes # (Manual) 1.2 H (0.0-0.8) K/mm3 Potassium 5.3 H (3.6-5.0) mmol/L BUN 37 H (7-17) mg/dL Creatinine 2.5 H (0.7-1.2) mg/dL Total Protein 6.2 L (6.3-8.2) g/dL Albumin 3.7 L (3.9-5) g/dL
[2018-03-12] MEDS: D5NS 1,000 ML IV SCH (18:23)
[2018-03-13 06:14] LABS: Bacteria,Urine 1+ /HPF (Negative); Bilirubin,Urine NEG (Negative); Blood,Urine SM (Negative); Color,Urine Yellow (Yellow); Hyaline Casts,Urine 1 /LPF; Mucus,Urine FEW /HPF; Protein,Urine <15 mg/dL mg/dL (Negative); Urobilinogen,Urine < 2.0 mg/dL (<2.0)
[2018-03-13] MEDS: D5NS 1,000 ML IV SCH ×3 (06:20→22:31)
--- NOTE | 2018-03-13 10:00 | Progress Note ---
Assessment and Plan Chest pain is atypical EKG and serial cardiac enzymes are negative. Negative stress thallium at [facility] 9 months ago. LHC: 2009 was normal coronaries RBBB Anemia Chronic kidney disease Leukocytosis COPD Sick sinus syndrome Conservative cardiac management. Patient advised to follow up with [facility] within 1wk of discharge. Subjective Date of service: 03/13/18 Principal diagnosis: SOB better Interval history: Patient reports she is feeling better. She denies chest pain. Objective Vital Signs Temp Pulse Pulse Pulse Resp Resp BP 03/13/18 07:52 98.7 F 88 20 138/71 03/13/18 02:22 98.6 F 102 H 18 114/61 03/13/18 01:45 102 H 03/12/18 22:14 98 H 16 03/12/18 22:00 20 03/12/18 20:42 98 H 16 03/12/18 20:17 99.7 F H 94 H 18 92/46 03/12/18 19:05 20 03/12/18 16:28 98 H 20 03/12/18 16:18 93 H 20 03/12/18 14:01 98 H 91/41 03/12/18 14:00 98 H 86/43 03/12/18 13:15 103 H 20 03/12/18 13:05 109 H 20 03/12/18 13:00 03/12/18 10:00 94 H 94 H 20 Pulse Ox 03/13/18 07:52 96 03/13/18 02:22 98 03/13/18 01:45 03/12/18 22:14 03/12/18 22:00 94 03/12/18 20:42 94 03/12/18 20:17 94 03/12/18 19:05 03/12/18 16:28 03/12/18 16:18 03/12/18 14:01 93 03/12/18 14:00 92 03/12/18 13:15 03/12/18 13:05 03/12/18 13:00 97 03/12/18 10:00 96 - Physical Examination General: No Apparent Distress HEENT: Positive: PERRL Neck: Positive: trachea midline Cardiac: Positive: Reg Rate and Rhythm Lungs: Positive: Decreased Breath Sounds Neuro: Positive: Grossly Intact
[2018-03-13] MEDS: DUONEB *Not for PRN Use IH SCH ×4 (10:14→21:51)
[2018-03-13] MEDS: PERCOCET 5/325 PO PRN (11:14)
[2018-03-13] MEDS: PEPCID PO SCH ×2 (11:15→22:17)
[2018-03-13] MEDS: SODIUM CHLORIDE FLUSH SYRINGE 10 ML IV SCH ×2 (11:16→22:17)
--- NOTE | 2018-03-13 11:20 | Progress Note ---
Assessment and Plan 1. 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 Renal function is improving. Continue IV fluids. Monitor renal function. 2. Hyperkalemia: Kayexalate. Continue Dextrose containing IV fluids. Monitor. 3. Chest pain: Followed by Cards. 4. Chronic respiratory failure: COPD on home O2. 5. Chronic Anemia. Subjective Date of service: 03/13/18 Principal diagnosis: SOB better Interval history: Patient is feeling better today. Objective - Vital Signs Vital signs: Vital Signs - 12hr 03/13/18 03/13/18 03/13/18 01:45 02:22 07:52 Temperature 98.6 F 98.7 F Pulse Rate 102 H 102 H 88 Respiratory 18 20 Rate Blood Pressure 114/61 138/71 O2 Sat by Pulse 98 96 Oximetry - General Appearance General appearance: well-developed, appears stated age, other (no distress) EENT: ATNC, PERRL, mucous membranes moist, hearing intact, vision intact Neck: supple Respiratory: Present: Clear to Ascultation Cardiology: regular, S1S2, no murmurs Gastrointestinal: normoactive bowel sounds Integumentary: no rash, warm and dry Neurologic: no focal deficit, no asterixis, alert and oriented x3 Musculoskeletal: other (no edema) Psychiatric: mood/affect appropriate, cooperative - Lab 03/12/18 05:58 03/13/18 11:30 Most recent lab results Calcium 8.4 mg/dL (8.4-10.2) 03/12/18 05:58 Urine Creatinine 65.0 mg/dL (0.1-20.0) H 03/13/18 05:45 Urine Sodium 46 mmol/L 03/13/18 05:45
[2018-03-13 12:26] LABS: Calcium 8.8 mg/dL (8.4-10.2)
[2018-03-13] MEDS ORDERED: KIONEX PO ONE (15:13)
--- NOTE | 2018-03-13 17:58 | Progress Note ---
Assessment and Plan - Patient Problems (1) Acute diastolic (congestive) heart failure Current Visit: Yes Status: Acute Plan to address problem: Cont Lasix ECHO (2) Acute chest pain Onset Date: 05/21/16 Current Visit: No Status: Acute Plan to address problem: Atypical Defer to cardiology for stress test (3) NELIDA (acute kidney injury) Current Visit: Yes Status: Acute Plan to address problem: Will defer to Nephrolgy (4) HTN (hypertension) Current Visit: Yes Status: Chronic Qualifiers: Hypertension type: essential hypertension Qualified Code(s): I10 - Essential (primary) hypertension Plan to address problem: Cont antihypertensives (5) COPD (chronic obstructive pulmonary disease) Current Visit: Yes Status: Chronic Qualifiers: Emphysema type: unspecified Plan to address problem: Duonebs (6) Leukocytosis Current Visit: Yes Status: Acute Plan to address problem: Sec to steroids (7) DVT prophylaxis Current Visit: Yes Status: Acute Plan to address problem: On Heparin Subjective Date of service: 03/13/18 Principal diagnosis: SOB better Interval history: Chest pain resolved Objective - Constitutional Vitals: Vital Signs - 12hr 03/13/18 03/13/18 03/13/18 07:52 10:00 12:35 Temperature 98.7 F Pulse Rate 88 110 H Respiratory 20 20 Rate Blood Pressure 138/71 O2 Sat by Pulse 96 96 Oximetry 03/13/18 13:52 Temperature 98.5 F Pulse Rate 99 H Respiratory 50 H Rate Blood Pressure 103/65 O2 Sat by Pulse 97 Oximetry General appearance: Present: no acute distress, well-nourished - EENT Eyes: PERRL, EOM intact ENT: hearing intact, clear oral mucosa Ears: bilateral: normal - Neck Neck: supple, normal ROM - Respiratory Respiratory effort: normal Respiratory: bilateral: CTA - Breasts Breasts: normal - Cardiovascular Rhythm: regular Heart Sounds: Present: S1 & S2. Absent: gallop, rub Extremities: pulses intact, No edema, normal color, Full ROM - Gastrointestinal General gastrointestinal: Present: soft, non-tender, non-distended, normal bowel sounds - Genitourinary Female genitourinary: normal - Integumentary Integumentary: clear, warm, dry - Musculoskeletal Musculoskeletal: 1, strength equal bilaterally - Neurologic Neurologic: moves all extremities - Psychiatric Psychiatric: memory intact, appropriate mood/affect, intact judgment & insight - Labs CBC & Chem 7: 03/12/18 05:58 03/13/18 11:30 Labs: Abnormal lab results 03/13/18 03/13/18 03/13/18 Range/Units 05:45 05:45 11:30 Potassium 5.2 H (3.6-5.0) mmol/L BUN 46 H (7-17) mg/dL Creatinine 2.2 H (0.7-1.2) mg/dL Glucose 143 H (65-100) mg/dL Urine WBC (Auto) 7.0 H (0.0-6.0) /HPF Urine Creatinine 65.0 H (0.1-20.0) mg/dL
[2018-03-14 06:05] LABS: Hematocrit 25.8 % (30.3-42.9); Hemoglobin 8.4 gm/dl (10.1-14.3); Mean Corpuscular HGB Conc 33 % (30-34); Mean Corpuscular Hemoglobin 29 pg (28-32); Mean Corpuscular Volume 87 fl (79-97); Platelet Count 146 K/mm3 (140-440); Red Blood Count 2.96 M/mm3 (3.65-5.03); Red Cell Distribution Width 15.1 % (13.2-15.2)
[2018-03-14 06:28] LABS: Calcium 8.4 mg/dL (8.4-10.2)
[2018-03-14 07:09] LABS: Anisocytosis 1+; Band Neutrophils # (Manual) 0.1 K/mm3; Basophils % (Manual) 0 % (0.0-1.8); Eosinophils % (Manual) 0 % (0.0-4.3); Hypochromasia Few; Monocytes % (Manual) 0 % (0.0-7.3); Ovalocytes 1+; Poikilocytosis 1+; Schistocytes Rare; Total Cells Counted 100
[2018-03-14] MEDS: DUONEB *Not for PRN Use IH SCH ×3 (07:30→17:02)
[2018-03-14] MEDS: PEPCID PO SCH (09:13)
[2018-03-14] MEDS: SODIUM CHLORIDE FLUSH SYRINGE 10 ML IV SCH (09:13)
--- NOTE | 2018-03-14 09:44 | Progress Note ---
Assessment and Plan 1. 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 Renal function is improving. Continue IV fluids. Renal US. Monitor renal function. 2. Hyperkalemia: Improved. Monitor. 3. Chest pain: Followed by Cards. 4. Chronic respiratory failure: COPD on home O2. 5. Chronic Anemia. Subjective Date of service: 03/14/18 Principal diagnosis: SOB better Interval history: Patient is feeling better today. Objective - Vital Signs Vital signs: Vital Signs - 12hr 03/13/18 03/13/18 03/14/18 21:52 22:01 00:00 Temperature Pulse Rate Pulse Rate [ 87 85 Anterior Bilateral Throughout] Respiratory 20 Rate Respiratory 14 16 Rate [Anterior Bilateral Throughout] Blood Pressure O2 Sat by Pulse Oximetry 03/14/18 03/14/18 02:18 08:17 Temperature 98.9 F 98.7 F Pulse Rate 95 H 108 H Pulse Rate [ Anterior Bilateral Throughout] Respiratory 18 20 Rate Respiratory Rate [Anterior Bilateral Throughout] Blood Pressure 130/49 132/78 O2 Sat by Pulse 95 96 Oximetry - General Appearance General appearance: well-developed, well-nourished, appears stated age, other ( no distress) EENT: ATNC, PERRL, mucous membranes moist, hearing intact, vision intact Neck: supple Respiratory: Present: Clear to Ascultation Cardiology: regular, S1S2, no murmurs Gastrointestinal: normoactive bowel sounds, no tenderness, no distended Integumentary: no rash, warm and dry Neurologic: no focal deficit, no asterixis, alert and oriented x3 Musculoskeletal: other (no edema) Psychiatric: mood/affect appropriate, cooperative - Lab 03/14/18 05:19 03/14/18 05:19 Most recent lab results Calcium 8.4 mg/dL (8.4-10.2) 03/14/18 05:19 Urine Creatinine 65.0 mg/dL (0.1-20.0) H 03/13/18 05:45 Urine Sodium 46 mmol/L 03/13/18 05:45
--- NOTE | 2018-03-14 11:12 | Query- Renal Failure ---
India Mercer Date:___03/14/2018 Second Vp Hr Assessment/CDS:___Leighann Phone#:__[phone] Exercise your independent professional judgment when responding to query. Questions asked do not imply a particular answer is desired or expected. We greatly appreciate your clarification on this issue. Clinical Documentation States: 77 Year old female was admitted on 03/11/2018 for Chest pain and SOB. The IM (Dr. Sahu) Progress note on 03/13/2018 states "(3) NELIDA (acute kidney injury) Current Visit: Yes Status: Acute." Clinical Findings Show: Creatinine 03/11 1.8 03/12 2.5 Please clarify if you mean: Acute Renal Failure with or due to: [ X] Tubular Necrosis [ ] Medullary Necrosis [ ] Vasomotor Nephropathy [ ] Shock Kidney [ ] Tubular Nephrosis [ ] Renal Tubular Stasis [ ] Cortical Necrosis [ ] Acute Renal Failure (unspecified) [ ] Lower Tubular Nephrosis [ ] Other: [ ] Not Applicable Present on Admission: [ X] Yes (Y) [ ] Clinically undeterminable (W) [ ] No (N) Please also document response in your Progress Notes and/or Discharge Summary and indicate if the condition was present on admission. MTDD
[2018-03-14 14:38] VITALS: BP 162/90
--- NOTE | 2018-03-14 16:14 | Discharge Summary ---
Providers - Providers Date of Admission: 03/11/18 13:32 Date of discharge: 03/14/18 Attending physician: GABY WILD 03/12/18 14:26 Consult to Physician [CONS] Routine Comment: Consulting Provider: BRAD MELENDEZ Physician Instructions: Reason For Exam: NELIDA Primary care physician: JAYDEN WYLIE Hospitalization Condition: Stable Hospital course: - Patient Problems (1) Acute diastolic (congestive) heart failure Current Visit: Yes Status: Acute Plan to address problem: Cont Lasix--switch to oral Lasix (2) Acute chest pain Onset Date: 05/21/16 Current Visit: No Status: Acute Plan to address problem: Atypical (3) NELIDA (acute kidney injury) Current Visit: Yes Status: Acute Plan to address problem: Cr 2.2 near baseline Renal ultrasound done F/u as outpatient with Dr Melendez (4) HTN (hypertension) Current Visit: Yes Status: Chronic Qualifiers: Hypertension type: essential hypertension Qualified Code(s): I10 - Essential (primary) hypertension Plan to address problem: Cont antihypertensives well controlled (5) COPD (chronic obstructive pulmonary disease) Current Visit: Yes Status: Chronic Qualifiers: Emphysema type: unspecified Plan to address problem: Duonebs (6) Leukocytosis Current Visit: Yes Status: Acute Plan to address problem: Sec to steroids Improved (7) DVT prophylaxis Current Visit: Yes Status: Acute Plan to address problem: On Heparin till discharge Disposition: DC-01 TO HOME OR SELFCARE Core Measure Documentation - Palliative Care Palliative Care/ Comfort Measures: Not Applicable - Core Measures Any of the following diagnoses?: none Exam - Constitutional Vitals: Temp Pulse Resp BP Pulse Ox 99.2 F 108 H 20 162/90 95 03/14/18 14:31 03/14/18 14:31 03/14/18 14:31 03/14/18 14:31 03/14/18 14:31 General appearance: Present: no acute distress, well-nourished - EENT Eyes: Present: PERRL ENT: hearing intact, clear oral mucosa - Neck Neck: Present: supple, normal ROM - Respiratory Respiratory effort: normal Respiratory: bilateral: CTA - Cardiovascular Heart Sounds: Present: S1 & S2. Absent: rub, click - Extremities Extremities: pulses symmetrical, No edema Peripheral Pulses: within normal limits - Abdominal General gastrointestinal: Present: soft, non-tender, non-distended, normal bowel sounds Female genitourinary: Present: normal - Integumentary Integumentary: Present: clear, warm, dry - Musculoskeletal Musculoskeletal: gait normal, strength equal bilaterally - Psychiatric Psychiatric: appropriate mood/affect, intact judgment & insight - Neurologic Neurologic: CNII-XII intact, moves all extremities Plan Activity: no restrictions Diet: low fat, low cholesterol, low salt Follow up with: JAYDEN WYLIE MD [Primary Care Provider] - 3-5 Days BRAD MELENDEZ MD [Staff Physician] - 7 Days
--- NOTE | 2018-03-15 08:08 | Ultrasound Report ---
Renal sonogram: History: Acute renal failure. Findings: Right kidney 10.6 x 3.8 x 5.6 cm. Cortical thickening 1.1 cm. Left kidney 9.9 x 4.6 x 4.4 cm. Cortical thickness is 0.9 cm. Hypoechoic area in the left renal hilum may represent a cyst or pelvis of the left ureter. No definite evidence of hydronephrosis. Impression: Findings as detailed above. If clinically indicated CT scan may be advised.
== END 2018-03-14 18:15 | disposition home or self-care (01) | DRG 682 ==
LOC: ED 06:27 → 3A 13:32 → 2B-ACE 14:18
PROVIDERS: ADMIT Internal Medicine; ATTEND Internal Medicine
DX: N17.0 Acute kidney failure with tubular necrosis (principal); I50.31 Acute diastolic (congestive) heart failure; J44.1 Chronic obstructive pulmonary disease with (acute) exacerbation; I13.0 Hypertensive heart and chronic kidney disease with heart failure and stage 1 through stage 4 chronic kidney disease, or unspecified chronic kidney disease; J96.10 Chronic respiratory failure, unspecified whether with hypoxia or hypercapnia; N18.4 Chronic kidney disease, stage 4 (severe); M19.90 Unspecified osteoarthritis, unspecified site; D64.9 Anemia, unspecified; J44.9 Chronic obstructive pulmonary disease, unspecified; D72.829 Elevated white blood cell count, unspecified; I45.10 Unspecified right bundle-branch block; R07.89 Other chest pain; E87.5 Hyperkalemia; Z95.0 Presence of cardiac pacemaker; Z82.49 Family history of ischemic heart disease and other diseases of the circulatory system; Z88.6 Allergy status to analgesic agent; Z88.0 Allergy status to penicillin; Z88.2 Allergy status to sulfonamides; Z79.899 Other long term (current) drug therapy; I25.2 Old myocardial infarction; Z86.73 Personal history of transient ischemic attack (TIA), and cerebral infarction without residual deficits; Z90.710 Acquired absence of both cervix and uterus; Z98.49 Cataract extraction status, unspecified eye; Z87.891 Personal history of nicotine dependence
CPT/HCPCS: 36415; 71046; 76770; 80048; 80053; 81001; 82150; 82570; 83036; 83690; 84300; 84484; 85007; 85025; 93005; 93010; 94640; 94760; 96374; 96375; 96376; J2270; J2405; J2920; J7042

== ENCOUNTER → 2018-06-11 | Outpatient (CLI) | payer MEDICARE ==
[2018-06-11 13:18] LABS: Calcium 9.6 mg/dL (8.4-10.2)
== END | disposition home or self-care (01) ==
LOC: LAB 12:28
PROVIDERS: ATTEND Internal Medicine Nephrology
DX: I12.9 Hypertensive chronic kidney disease with stage 1 through stage 4 chronic kidney disease, or unspecified chronic kidney disease (principal); N18.4 Chronic kidney disease, stage 4 (severe); J44.1 Chronic obstructive pulmonary disease with (acute) exacerbation; F32.9 Major depressive disorder, single episode, unspecified; I48.91 Unspecified atrial fibrillation; E78.5 Hyperlipidemia, unspecified; M19.90 Unspecified osteoarthritis, unspecified site; I25.10 Atherosclerotic heart disease of native coronary artery without angina pectoris; Z88.0 Allergy status to penicillin; Z88.2 Allergy status to sulfonamides; Z88.6 Allergy status to analgesic agent; E78.00 Pure hypercholesterolemia, unspecified; Z86.73 Personal history of transient ischemic attack (TIA), and cerebral infarction without residual deficits; Z90.710 Acquired absence of both cervix and uterus
CPT/HCPCS: 36415; 80048

== ENCOUNTER 2019-02-11 09:14 | Outpatient (CLI) | payer MEDICARE ==
[2019-02-11 10:00] LABS: Calcium 9.2 mg/dL (8.4-10.2)
== END 2019-02-11 09:15 | disposition home or self-care (01) ==
LOC: LAB 09:14
PROVIDERS: ATTEND Internal Medicine Nephrology
DX: I13.0 Hypertensive heart and chronic kidney disease with heart failure and stage 1 through stage 4 chronic kidney disease, or unspecified chronic kidney disease (principal); N18.4 Chronic kidney disease, stage 4 (severe); E78.5 Hyperlipidemia, unspecified; I50.9 Heart failure, unspecified; J44.9 Chronic obstructive pulmonary disease, unspecified; Z90.710 Acquired absence of both cervix and uterus
CPT/HCPCS: 36415; 80048

== ENCOUNTER 2019-04-09 17:19 | Observation (INO) | payer MEDICARE ==
[2019-04-09] MEDS ORDERED: PROVENTIL IH ONE (17:37)
[2019-04-09] MEDS ORDERED: ATROVENT IH ONE (17:37)
[2019-04-09] MEDS ORDERED: LASIX IV ONE (17:37)
--- NOTE | 2019-04-09 18:04 | Emergency Department Report ---
ED Chest Pain HPI - General Chief Complaint: Chest Pain Stated Complaint: CHEST PAIN Time Seen by Provider: 04/09/19 17:20 Source: patient, EMS Mode of arrival: Stretcher Limitations: No Limitations - History of Present Illness Initial Comments: Mrs. English is a very pleasant 78 yo female who presents with hx of CAD, COPD, oxygen dependent on 3 L O2, CKD, depression, CVA, PAF, syncope s/p pacemaker, HTN, CHF who presents with [place]OR[place], shortness of breath, and chest pain. This morning Ms. English awakened at 5:30 with a splitting headache. Her blood pressure was within normal range. Headache then subsided. However after being outside for 2 hours, she started to have shortness of breath, runny nose and productive cough. While resting she developed chest pain. She stated it felt like a fist or elephant sitting on her chest. The chest pain lasted several minutes until EMS arrived. Currently she is pain-free. She does have mild shortness of breath at this time. She has been hospitalized numerous times between our hospital and [facility]. Her PCP is Dr. Julio Wyatt. Complaint: chest pain -: Sudden, This evening Onset: during rest Pain Location: substernal Pain Radiation: none Severity: moderate, severe Severity scale (0 -10): 8 Quality: tightness, heaviness Consistency: now resolved Improves With: nothing Worsens With: nothing re: dyspnea Other Symptoms: cough - Related Data Previous Rx's Medication Instructions Recorded Last Taken Type ALBUTEROL Inhaler(NF) [VENTOLIN 2 puff IH Q4H PRN #1 inha 11/01/18 Unknown Rx Inhaler(NF)] Acetaminophen [Acetaminophen TAB] 325 mg PO Q4H PRN #10 tablet 11/01/18 Unknown Rx Budesonide/Formoterol Fumarate 2 puff IH DAILY #1 hfa.aer.ad 11/01/18 Unknown Rx [Symbicort 160-4.5 Mcg Inhaler] Famotidine [Pepcid] 20 mg PO DAILY #30 tablet 11/01/18 Unknown Rx Ipratropium/Albuterol Sulfate 1 ampul IH TIDRT PRN #30 ampul.neb 11/01/18 Unknown Rx [DUONEB *Not for PRN Use*] Mirtazapine [Remeron 30mg TAB] 30 mg PO QHS PRN #30 tablet 11/01/18 Unknown Rx levoFLOXacin [Levaquin TAB] 500 mg PO Q48H 4 Days tablet 11/01/18 Unknown Rx oxyCODONE /ACETAMINOPHEN [Percocet 1 tab PO Q6H PRN #10 tablet 11/01/18 Unknown Rx 5/325 mg] predniSONE [Deltasone] 10 mg PO DAILY 15 Days tablet 11/01/18 Unknown Rx Allergies Allergy/AdvReac Type Severity Reaction Status Date / Time aspirin Allergy Hives Verified 03/15/18 13:11 Penicillins Allergy Hives Verified 03/15/18 13:11 Sulfa (Sulfonamide Allergy Hives Verified 03/15/18 13:11 Antibiotics) Heart Score - HEART Score History: Slightly suspicious EKG: Non-specific Age: > 65 Risk factors: > 3 risk factors or hx of atherosclerotic disease Troponin: < normal limit HEART Score: 5 ED Review of Systems ROS: Stated complaint: CHEST PAIN Other details as noted in HPI Comment: All other systems reviewed and negative Constitutional: denies: fever, malaise Respiratory: cough, shortness of breath Cardiovascular: chest pain ED Past Medical Hx - Past Medical History Previous Medical History?: Yes Hx Hypertension: Yes Hx CVA: Yes (x 2) Hx Heart Attack/AMI: No Hx Congestive Heart Failure: Yes Hx Diabetes: No Hx Deep Vein Thrombosis: No Hx Pulmonary Embolism: No Hx Renal Disease: Yes Hx Arthritis: Yes Hx Kidney Stones: No Hx Asthma: No Hx COPD: Yes Hx Tuberculosis: No Hx HIV: No Additional medical history: Chronic Bronchitis - Surgical History Past Surgical History?: Yes Hx Coronary Stent: No Hx Open Heart Surgery: No Hx Pacemaker: Yes Hx Internal Defibrillator: No Hx Cholecystectomy: No Hx Appendectomy: No Hx Breast Surgery: No Additional Surgical History: Right Knee Surgery , demand pacemaker (90's). Hyst. cataract removal in both eyes, - Social History Smoking Status: Former Smoker Substance Use Type: None Other Social History: Moved from [place] of years ago to be closer to her family members. - Medications Home Medications: Home Medications Medication Instructions Recorded Confirmed Last Taken Type ALBUTEROL Inhaler(NF) [VENTOLIN 2 puff IH Q4H PRN #1 inha 11/01/18 Unknown Rx Inhaler(NF)] Acetaminophen [Acetaminophen TAB] 325 mg PO Q4H PRN #10 tablet 11/01/18 Unknown Rx Budesonide/Formoterol Fumarate 2 puff IH DAILY #1 hfa.aer.ad 11/01/18 Unknown Rx [Symbicort 160-4.5 Mcg Inhaler] Famotidine [Pepcid] 20 mg PO DAILY #30 tablet 11/01/18 Unknown Rx Ipratropium/Albuterol Sulfate 1 ampul IH TIDRT PRN #30 ampul.neb 11/01/18 Unknown Rx [DUONEB *Not for PRN Use*] Mirtazapine [Remeron 30mg TAB] 30 mg PO QHS PRN #30 tablet 11/01/18 Unknown Rx levoFLOXacin [Levaquin TAB] 500 mg PO Q48H 4 Days tablet 11/01/18 Unknown Rx oxyCODONE /ACETAMINOPHEN [Percocet 1 tab PO Q6H PRN #10 tablet 11/01/18 Unknown Rx 5/325 mg] predniSONE [Deltasone] 10 mg PO DAILY 15 Days tablet 11/01/18 Unknown Rx ED Physical Exam - General Limitations: No Limitations General appearance: alert, in no apparent distress, other (smiling pleasant jovial articulate talkative) - Head Head exam: Present: atraumatic, normocephalic - Eye Eye exam: Present: normal appearance - ENT ENT exam: Present: mucous membranes moist - Neck Neck exam: Present: normal inspection, full ROM - Respiratory Respiratory exam: Present: normal lung sounds bilaterally. Absent: respiratory distress, wheezes, rales, rhonchi - Cardiovascular Cardiovascular Exam: Present: regular rate, normal rhythm, normal heart sounds. Absent: systolic murmur, diastolic murmur, rubs, gallop - GI/Abdominal GI/Abdominal exam: Present: soft, normal bowel sounds. Absent: distended, tenderness, guarding, rebound - Extremities Exam Extremities exam: Present: normal inspection - Back Exam Back exam: Present: normal inspection - Neurological Exam Neurological exam: Present: alert, oriented X3 - Psychiatric Psychiatric exam: Present: normal affect, normal mood - Skin Skin exam: Present: warm, dry, intact, normal color. Absent: rash ED Course Vital Signs 04/09/19 04/09/19 04/09/19 18:13 18:32 19:15 Temperature 98.3 F Pulse Rate 87 Pulse Rate [ 78 98 H Anterior Bilateral Throughout] Respiratory 22 Rate Respiratory 26 H 31 H Rate [Anterior Bilateral Throughout] Blood Pressure Blood Pressure 123/69 [Left] O2 Sat by Pulse 98 Oximetry 04/09/19 04/09/19 04/09/19 19:31 20:00 20:31 Temperature Pulse Rate 99 H 86 81 Pulse Rate [ Anterior Bilateral Throughout] Respiratory 16 21 18 Rate Respiratory Rate [Anterior Bilateral Throughout] Blood Pressure 123/69 130/70 130/70 Blood Pressure [Left] O2 Sat by Pulse 99 99 100 Oximetry QUE score - Que Score Aspirin use within the Past 7 Days: (0) No ED Medical Decision Making - Lab Data Result diagrams: 04/09/19 18:27 04/09/19 18:27 - EKG Data 04/09/19 17:51 EKG obtained 1732 Normal sinus rhythm rate 90 beats a minute left axis deviation prolonged QT interval no ST elevation nonspecific T-wave abnormality right bundle branch block 04/09/19 20:18 - Radiology Data Radiology results: report reviewed Chest x-ray: According to radiology report, no acute process, pacemaker in place - Medical Decision Making 1. COPD exacerbation with hypercapnia and respiratory acidosis, bronchodilator therapy, IV steroid, antibiotics provided in the ED 2. Chest pain at rest nonexertional does not appear to represent acute coronary syndrome however patient does have history of unstable angina. COPD exace rbation could be a contributing factor with hypoxia contributing to unstable angina ACS without persistent pain do not suspect pulmonary embolism or pneumothorax as potential causes of chest pain. 3. Tension headache resolved spontaneously I have reviewed labs which were notable for elevated creatinine with chronic kidney disease. Critical Care Time: Yes Critical care time in (mins) excluding proc time.: 40 Critical care attestation.: If time is entered above; I have spent that time in minutes in the direct care of this critically ill patient, excluding procedure time. 40 minutes of critical care time excluding procedures were used in the care of the patient. Patient required multiple assessments and interventions. I reviewed the electronic medical record. I spoke with consultants involved in the care of the patient. ED Disposition Clinical Impression: Acute respiratory failure with hypercapnia, COPD with acute exacerbation, Acute coronary syndromes, Tension headache Disposition: OP ADMIT IP TO THIS HOSP Is pt being admited?: Yes Does the pt Need Aspirin: No Condition: Stable Instructions: Chronic Obstructive Pulmonary Disease (ED)
[2019-04-09 18:45] LABS: Basophils % (Auto) 0.4 % (0.0-1.8); Eosinophils # (Auto) 0.4 K/mm3 (0.0-0.4); Eosinophils % (Auto) 11.3 % (0.0-4.3); Hematocrit 30.1 % (30.3-42.9); Lymphocytes % (Auto) 27.4 % (13.4-35.0); Mean Corpuscular HGB Conc 33 % (30-34); Mean Corpuscular Volume 86 fl (79-97); Monocytes # (Auto) 0.4 K/mm3 (0.0-0.8); Monocytes % (Auto) 10.6 % (0.0-7.3); Platelet Count 184 K/mm3 (140-440); Red Blood Count 3.49 M/mm3 (3.65-5.03); Red Cell Distribution Width 14.5 % (13.2-15.2)
--- NOTE | 2019-04-09 19:00 | XRay Report ---
PROCEDURE: XR CHEST 1V AP TECHNIQUE: Chest radiograph single view. HISTORY: Dyspnea COMPARISONS: Comparison is dated October 29, 2018 FINDINGS: Heart: Normal. Mediastinum/Vessels: Normal. Lungs/Pleural space: Normal. Bony thorax: No acute osseous abnormality. Life support devices: Left pacemaker identified with wires intact IMPRESSION: Pacemaker. No acute findings in the chest. This document is electronically signed by Karan Garrison MD., April 09 2019 06:57:31 PM ET
[2019-04-09] MEDS ORDERED: LEVAQUIN PO ONE (19:15)
[2019-04-09] MEDS ORDERED: SOLU-Medrol IV ONE (19:15)
[2019-04-09 19:16] LABS: Calcium 9.6 mg/dL (8.4-10.2)
--- NOTE | 2019-04-09 21:31 | History and Physical Report ---
History of Present Illness Date of examination: 04/09/19 Date of admission: 04/09/2019 Medications and Allergies Allergies Allergy/AdvReac Type Severity Reaction Status Date / Time aspirin Allergy Hives Verified 03/15/18 13:11 Penicillins Allergy Hives Verified 03/15/18 13:11 Sulfa (Sulfonamide Allergy Hives Verified 03/15/18 13:11 Antibiotics) Home Medications Medication Instructions Recorded Confirmed Last Taken Type ALBUTEROL Inhaler(NF) [VENTOLIN 2 puff IH Q4H PRN #1 inha 11/01/18 04/09/19 Unknown Rx Inhaler(NF)] Acetaminophen [Acetaminophen TAB] 325 mg PO Q4H PRN #10 tablet 11/01/18 04/09/19 Unknown Rx Budesonide/Formoterol Fumarate 2 puff IH DAILY #1 hfa.aer.ad 11/01/18 04/09/19 Unknown Rx [Symbicort 160-4.5 Mcg Inhaler] Famotidine [Pepcid] 20 mg PO DAILY #30 tablet 11/01/18 04/09/19 Unknown Rx Ipratropium/Albuterol Sulfate 1 ampul IH TIDRT PRN #30 ampul.neb 11/01/18 04/09/19 Unknown Rx [DUONEB *Not for PRN Use*] Mirtazapine [Remeron 30mg TAB] 30 mg PO QHS PRN #30 tablet 11/01/18 04/09/19 Unknown Rx oxyCODONE /ACETAMINOPHEN [Percocet 1 tab PO Q6H PRN #10 tablet 11/01/18 04/09/19 Unknown Rx 5/325 mg] predniSONE [Deltasone] 10 mg PO DAILY 15 Days tablet 11/01/18 04/09/19 Unknown Rx Exam - Constitutional Vitals: Temp Pulse Resp BP Pulse Ox 98.3 F 81 18 130/70 100 04/09/19 19:15 04/09/19 20:31 04/09/19 20:31 04/09/19 20:31 04/09/19 20:31 Results - Labs CBC & Chem 7: 04/09/19 18:27 04/09/19 18:27 Labs: Laboratory Last Values WBC 3.8 K/mm3 (4.5-11.0) L 04/09/19 18:27 RBC 3.49 M/mm3 (3.65-5.03) L 04/09/19 18: Hgb 10.0 gm/dl (10.1-14.3) L 04/09/19 18: Hct 30.1 % (30.3-42.9) L 04/09/19 18: MCV 86 fl (79-97) 04/09/19 18: MCH 29 pg (28-32) 04/09/19 18: MCHC 33 % (30-34) 04/09/19 18: RDW 14.5 % (13.2-15.2) 04/09/19 18: Plt Count 184 K/mm3 (140-440) 04/09/19 18: Lymph % (Auto) 27.4 % (13.4-35.0) 04/09/19 18: Grayson % (Auto) 10.6 % (0.0-7.3) H 04/09/19 18: Eos % (Auto) 11.3 % (0.0-4.3) H 04/09/19 18: Baso % (Auto) 0.4 % (0.0-1.8) 04/09/19 18: Lymph # 1.0 K/mm3 (1.2-5.4) L 04/09/19 18: Grayson # 0.4 K/mm3 (0.0-0.8) 04/09/19 18: Eos # 0.4 K/mm3 (0.0-0.4) 04/09/19 18: Baso # 0.0 K/mm3 (0.0-0.1) 04/09/19 18: Seg Neutrophils % 50.3 % (40.0-70.0) 04/09/19 18: Seg Neutrophils # 1.9 K/mm3 (1.8-7.7) 04/09/19 18: POC ABG pH 7.290 (7.35-7.45) L 04/09/19 18: POC ABG pCO2 65.6 (35-45) H 04/09/19 18: POC ABG pO2 113 (80-105) H 04/09/19 18: POC ABG HCO3 31.6 (22-26 mml/L) 06/12/19 18:19 POC ABG Total CO2 34 (23-27mmol/L) 04/09/19 18:19 POC ABG O2 Sat 98 04/09/19 18: POC ABG Base Excess 5 ((-2) - (+3)mmol/L) 04/09/19 18:19 32 % 04/09/19 18:19 Sodium 140 mmol/L (137-145) 04/09/19 18:27 Potassium 5.4 mmol/L (3.6-5.0) H 04/09/19 18:27 Chloride 99.7 mmol/L (98-107) 04/09/19 18:27 Carbon Dioxide 30 mmol/L (22-30) 04/09/19 18:27 16 mmol/L 04/09/19 18:27 BUN 23 mg/dL (7-17) H 04/09/19 18:27 1.9 mg/dL (0.7-1.2) H 04/09/19 18:27 Estimated GFR 31 ml/min 04/09/19 18:27 12 % 04/09/19 18:27 Glucose 89 mg/dL (65-100) 04/09/19 18: Calcium 9.6 mg/dL (8.4-10.2) 04/09/19 18: Magnesium 2.10 mg/dL (1.7-2.3) 04/09/19 18:27 0.20 mg/dL (0.1-1.2) 04/09/19 18:27 AST 16 units/L (5-40) 04/09/19 18: ALT 10 units/L (7-56) 04/09/19 18:27 78 units/L (35-129) 04/09/19 18:27 < 0.010 ng/mL (0.00-0.029) 04/09/19 18: NT-Pro-B Natriuret Pep 271.4 pg/mL (0-900) 04/09/19 18:27 7.1 g/dL (6.3-8.2) 04/09/19 18:27 4.0 g/dL (3.9-5) 04/09/19 18:27 1.3 % 04/09/19 18:27
[2019-04-09] MEDS ORDERED: SODIUM CHLORIDE FLUSH SYRINGE 10 ML IV PRN (21:32)
[2019-04-09] MEDS ORDERED: MILK OF MAGNESIA PO PRN (21:32)
[2019-04-09] MEDS ORDERED: TYLENOL PO PRN (21:32)
[2019-04-09] MEDS ORDERED: ZOFRAN IV PRN (21:32)
--- NOTE | 2019-04-09 21:41 | History and Physical Report ---
History of Present Illness Date of examination: 04/09/19 Date of admission: 04/09/2019 Chief complaint: Shortness of breath, chest pain History of present illness: Pt is a 78 year old female with PMHx of CAD, CHF, COPD (home O2 dependent), CKD, depression, CVA, PAF, SSS s/p pacemaker, HTN, who was brought to the ER by EMS for c/o THORNTON, SOB and chest pain. Pt states that she woke up this morning with THORNTON, she later on developed cough, running nose, SOB. Pt also reports chest pain, she states that the pain felt like an elephant is sitting on her chest and lasted few minutes before coming to the ER. Pt states that the symptoms started suddenly, she denies fever, denies chills, denies ill-contact, denies palpitation, denies diaphoresis, denies nausea or vomiting. On arrival to the ER patient was having severe respiratory distress, she was given nebulizer ella tments and IV Solu-Medrol with improvement of the symptoms. She is admitted for further management of her COPD. Past History Past Medical History: No medical history Past Surgical History: No surgical history Social history: no significant social history Family history: no significant family history Medications and Allergies Allergies Allergy/AdvReac Type Severity Reaction Status Date / Time aspirin Allergy Hives Verified 03/15/18 13:11 Penicillins Allergy Hives Verified 03/15/18 13:11 Sulfa (Sulfonamide Allergy Hives Verified 03/15/18 13:11 Antibiotics) Home Medications Medication Instructions Recorded Confirmed Last Taken Type ALBUTEROL Inhaler(NF) [VENTOLIN 2 puff IH Q4H PRN #1 inha 11/01/18 04/09/19 Unknown Rx Inhaler(NF)] Acetaminophen [Acetaminophen TAB] 325 mg PO Q4H PRN #10 tablet 11/01/18 04/09/19 Unknown Rx Budesonide/Formoterol Fumarate 2 puff IH DAILY #1 hfa.aer.ad 11/01/18 04/09/19 Unknown Rx [Symbicort 160-4.5 Mcg Inhaler] Famotidine [Pepcid] 20 mg PO DAILY #30 tablet 11/01/18 04/09/19 Unknown Rx Ipratropium/Albuterol Sulfate 1 ampul IH TIDRT PRN #30 ampul.neb 11/01/18 04/09/19 Unknown Rx [DUONEB *Not for PRN Use*] Mirtazapine [Remeron 30mg TAB] 30 mg PO QHS PRN #30 tablet 11/01/18 04/09/19 Unknown Rx oxyCODONE /ACETAMINOPHEN [Percocet 1 tab PO Q6H PRN #10 tablet 11/01/18 04/09/19 Unknown Rx 5/325 mg] predniSONE [Deltasone] 10 mg PO DAILY 15 Days tablet 11/01/18 04/09/19 Unknown Rx Review of Systems Cardiovascular: chest pain Respiratory: cough, shortness of breath, congestion, home oxygen Exam - Constitutional Vitals: Temp Pulse Resp BP Pulse Ox 98.3 F 81 18 130/70 100 04/09/19 19:15 04/09/19 20:31 04/09/19 20:31 04/09/19 20:31 04/09/19 20:31 General appearance: Present: mild distress - EENT Eyes: Present: EOM intact ENT: hearing intact - Neck Neck: Present: supple, normal ROM - Respiratory Respiratory effort: normal Respiratory: bilateral: diminished - Cardiovascular Rhythm: regular Heart Sounds: Present: S1 & S2 - Extremities Extremities: no ischemia, No edema Peripheral Pulses: within normal limits - Abdominal General gastrointestinal: Present: non-tender, non-distended Female genitourinary: Present: deferred - Rectal Rectal Exam: deferred - Integumentary Integumentary: Present: warm, dry - Musculoskeletal Musculoskeletal: strength equal bilaterally - Psychiatric Psychiatric: cooperative - Neurologic Neurologic: moves all extremities Results - Labs CBC & Chem 7: 04/09/19 18:27 04/09/19 18:27 Labs: Laboratory Last Values WBC 3.8 K/mm3 (4.5-11.0) L 04/09/19 18:27 RBC 3.49 M/mm3 (3.65-5.03) L 04/09/19 18:27 Hgb 10.0 gm/dl (10.1-14.3) L 04/09/19 18:27 Hct 30.1 % (30.3-42.9) L 04/09/19 18:27 MCV 86 fl (79-97) 04/09/19 18:27 MCH 29 pg (28-32) 04/09/19 18:27 MCHC 33 % (30-34) 04/09/19 18: RDW 14.5 % (13.2-15.2) 04/09/19 18: Plt Count 184 K/mm3 (140-440) 04/09/19 18: Lymph % (Auto) 27.4 % (13.4-35.0) 04/09/19 18: [place] % (Auto) 10.6 % (0.0-7.3) H 04/09/19 18: Eos % (Auto) 11.3 % (0.0-4.3) H 04/09/19 18: Baso % (Auto) 0.4 % (0.0-1.8) 04/09/19 18: Lymph # 1.0 K/mm3 (1.2-5.4) L 04/09/19 18: [place] # 0.4 K/mm3 (0.0-0.8) 04/09/19 18: Eos # 0.4 K/mm3 (0.0-0.4) 04/09/19 18: Baso # 0.0 K/mm3 (0.0-0.1) 04/09/19 18: Seg Neutrophils % 50.3 % (40.0-70.0) 04/09/19 18: Seg Neutrophils # 1.9 K/mm3 (1.8-7.7) 04/09/19 18: POC ABG pH 7.290 (7.35-7.45) L 04/09/19 18: POC ABG pCO2 65.6 (35-45) H 04/09/19 18: POC ABG pO2 113 (80-105) H 04/09/19 18: POC ABG HCO3 31.6 (22-26 mml/L) 04/09/19: POC ABG Total CO2 34 (23-27mmol/L) 04/09/19: POC ABG O2 Sat 98 04/09/19 18: POC ABG Base Excess 5 ((-2) - (+3)mmol/L) 04/09/19 18: 32 % 04/09/19 18: Sodium 140 mmol/L (137-145) 04/09/19 18:27 Potassium 5.4 mmol/L (3.6-5.0) H 04/09/19 18:27 Chloride 99.7 mmol/L (98-107) 04/09/19 18:27 Carbon Dioxide 30 mmol/L (22-30) 04/09/19 18:27 16 mmol/L 04/09/19 18:27 BUN 23 mg/dL (7-17) H 04/09/19 18:27 1.9 mg/dL (0.7-1.2) H 04/09/19 18:27 Estimated GFR 31 ml/min 04/09/19 18:27 12 % 04/09/19 18:27 Glucose 89 mg/dL (65-100) 04/09/19 18: Calcium 9.6 mg/dL (8.4-10.2) 04/09/19 18:27 Magnesium 2.10 mg/dL (1.7-2.3) 04/09/19 18:27 0.20 mg/dL (0.1-1.2) 04/09/19 18:27 AST 16 units/L (5-40) 04/09/19 18:27 ALT 10 units/L (7-56) 04/09/19 18:27 78 units/L (35-129) 04/09/19 18:27 < 0.010 ng/mL (0.00-0.029) 04/09/19 18: NT-Pro-B Natriuret Pep 271.4 pg/mL (0-900) 04/09/19 18:27 7.1 g/dL (6.3-8.2) 04/09/19 18:27 4.0 g/dL (3.9-5) 04/09/19 18:27 1.3 % 04/09/19 18:27 Assessment and Plan Assessment and plan: 1. COPD with acute exacerbation (home O2 dependent) 2. Acute dyspnea 3. HTN (BP stable) 4. H/o SSS status post pacemaker 5. CAD/CHF (EF unknown) 6. 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 Depression Plan: Pt is admitted to [facility] for COPD exacerbation Continue nebulizer treatmemt PRN for SOB Pulmocort daily O2 to keep sat > 92% Solumedrol 80mg Q6hr Resume home meds Further plan per hospital course Plan of care was d/w pt, voiced understanding Advance Directives: Yes VTE prophylaxis?: Chemical Plan of care discussed with patient/family: Yes
[2019-04-09] MEDS ORDERED: NACL 0.9% 1000 ML 1,000 ML IV SCH (22:00)
[2019-04-09] MEDS: SOLU-Medrol IV SCH (23:27)
[2019-04-09] MEDS: HEPARIN SUB-Q SCH (23:27)
[2019-04-09] MEDS: PERCOCET 5/325 PO PRN (23:28)
[2019-04-09] MEDS: SODIUM CHLORIDE FLUSH SYRINGE 10 ML IV SCH (23:28)
[2019-04-10] MEDS: DUONEB *Not for PRN Use IH SCH ×4 (02:35→21:15)
[2019-04-10] MEDS: PERCOCET 5/325 PO PRN ×3 (06:16→22:29)
[2019-04-10] MEDS: SOLU-Medrol IV SCH ×3 (06:16→23:08)
[2019-04-10] MEDS ORDERED: PERCOCET 5/325 PO PRN (06:43)
[2019-04-10] MEDS ORDERED: DUONEB *Not for PRN Use IH (06:43)
[2019-04-10] MEDS ORDERED: REMERON PO PRN (06:43)
[2019-04-10] MEDS ORDERED: PROAIR IH PRN (06:43)
[2019-04-10] MEDS: SODIUM CHLORIDE FLUSH SYRINGE 10 ML IV SCH ×2 (10:00→22:29)
[2019-04-10] MEDS ORDERED: NON-FORMULARY (Budesonide/Formoterol Fumarate [Symbicort 160-4.5 Mcg Inhaler] 2 PUFF) IH SCH (10:00)
--- NOTE | 2019-04-10 10:36 | Progress Note ---
Assessment and Plan Assessment and plan: 1. COPD with acute exacerbation (home O2 dependent) 2. Acute dyspnea 3. HTN (BP stable) 4. H/o SSS status post pacemaker 5. CAD/CHF (EF unknown) 6. 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 Depression Plan: steroids, nebs, chest pt improving History Interval history: Review of systems Constitutional: No fevers, no malaise, no joint pains CVS: No chest pain, no orthopnea, no pedal edema GI: No abdominal pain, no diarrhea, no vomiting, no constipation Respiratory: sob and wheezing is improving Hospitalist Physical - Physical exam Narrative exam: General.: Appears well, no distress, nontoxic HEENT: Moist mucous membranes, extraocular muscles intact, no lymphadenopathy Neck: supple Cardiac: S1-S2 heard Lungs: wheezing Abdomen: soft , nontender, nondistended, bowel sounds positive Extremities: no edema clubbing or cyanosis Skin: no rash or lesions Neurologic: no gross focal deficits Psych: calm, and cooperative - Constitutional Vitals: Temp Pulse Resp BP Pulse Ox 98.1 F 94 H 19 139/79 95 04/10/19 07:45 04/10/19 08:07 04/10/19 08:07 04/10/19 07:45 04/10/19 08:08 General appearance: Present: mild distress Results - Labs CBC & Chem 7: 04/09/19 18:27 04/10/19 10:19 Labs: Laboratory Last Values WBC 3.8 K/mm3 (4.5-11.0) L 04/09/19 18:27 RBC 3.49 M/mm3 (3.65-5.03) L 04/09/19 18:27 Hgb 10.0 gm/dl (10.1-14.3) L 04/09/19 18:27 Hct 30.1 % (30.3-42.9) L 04/09/19 18:27 MCV 86 fl (79-97) 04/09/19 18:27 MCH 29 pg (28-32) 04/09/19 18:27 MCHC 33 % (30-34) 04/09/19 18:27 RDW 14.5 % (13.2-15.2) 04/09/19 18:27 Plt Count 184 K/mm3 (140-440) 04/09/19 18:27 Lymph % (Auto) 27.4 % (13.4-35.0) 04/09/19 18:27 [place] % (Auto) 10.6 % (0.0-7.3) H 04/09/19 18:27 Eos % (Auto) 11.3 % (0.0-4.3) H 04/09/19 18: Baso % (Auto) 0.4 % (0.0-1.8) 04/09/19 18:27 Lymph # 1.0 K/mm3 (1.2-5.4) L 04/09/19 18: [place] # 0.4 K/mm3 (0.0-0.8) 04/09/19 18: Eos # 0.4 K/mm3 (0.0-0.4) 04/09/19 18: Baso # 0.0 K/mm3 (0.0-0.1) 04/09/19 18: Seg Neutrophils % 50.3 % (40.0-70.0) 04/09/19 18: Seg Neutrophils # 1.9 K/mm3 (1.8-7.7) 04/09/19 18: POC ABG pH 7.290 (7.35-7.45) L 04/09/19 18: POC ABG pCO2 65.6 (35-45) H 04/09/19 18: POC ABG pO2 113 (80-105) H 04/09/19 18: POC ABG HCO3 31.6 (22-26 mml/L) 04/09/19 18: POC ABG Total CO2 34 (23-27mmol/L) 04/09/19 18: POC ABG O2 Sat 98 04/09/19 18: POC ABG Base Excess 5 ((-2) - (+3)mmol/L) 04/09/19 18:19 32 % 04/09/19 18: Sodium 140 mmol/L (137-145) 04/09/19 18: Potassium 5.4 mmol/L (3.6-5.0) H 04/09/19 18: Chloride 99.7 mmol/L (98-107) 04/09/19 18: Carbon Dioxide 30 mmol/L (22-30) 04/09/19 18:27 16 mmol/L 04/09/19 18:27 BUN 23 mg/dL (7-17) H 04/09/19 18:27 1.9 mg/dL (0.7-1.2) H 04/09/19 18:27 Estimated GFR 31 ml/min 04/09/19 18:27 12 % 04/09/19 18:27 Glucose 89 mg/dL (65-100) 04/09/19 18:27 Calcium 9.6 mg/dL (8.4-10.2) 04/09/19 18:27 Magnesium 2.10 mg/dL (1.7-2.3) 04/09/19 18:27 0.20 mg/dL (0.1-1.2) 04/09/19 18:27 AST 16 units/L (5-40) 04/09/19 18:27 ALT 10 units/L (7-56) 04/09/19 18:27 78 units/L (35-129) 04/09/19 18:27 < 0.010 ng/mL (0.00-0.029) 04/09/19 18:27 NT-Pro-B Natriuret Pep 271.4 pg/mL (0-900) 04/09/19 18:27 7.1 g/dL (6.3-8.2) 04/09/19 18:27 4.0 g/dL (3.9-5) 04/09/19 18:27 1.3 % 04/09/19 18:27 Active Medications - Current Medications Current Medications: Generic Name Dose Route Start Last Admin Trade Name Freq PRN Reason Stop Dose Admin Acetaminophen 650 mg 04/09/19 21:32 Tylenol PO Q4H PRN Pain MILD(1-3)/Fever >100.5/THORNTON Albuterol 2 puff 04/10/19 06:43 Proair IH Q4H PRN Shortness Of Breath Albuterol/Ipratropium 1 ampul 04/10/19 02:00 04/10/19 08:06 Duoneb *Not For Prn Use* IH 1 ampul Q6HRT MANE Administration Albuterol/Ipratropium 1 ampul 04/10/19 06:43 Duoneb *Not For Prn Use* IH TIDRT PRN Shortness Of Breath Heparin Sodium (Porcine) 5,000 unit 04/09/19 22:00 04/09/19 23:27 Heparin SUB-Q 5,000 unit Q12HR MANE Administration Sodium Chloride 1,000 mls @ 42 mls/hr 04/09/19 22:00 Nacl 0.9% 1000 Ml IV DIRECT MANE Magnesium Hydroxide 30 ml 04/09/19 21:32 Milk Of Magnesia PO Q4H PRN Constipation Methylprednisolone Sodium Succinate 80 mg 04/10/19 00:00 04/10/19 06:16 Solu-Medrol IV 80 mg Q6HR MANE Administration Mirtazapine 30 mg 04/10/19 06:43 Remeron PO QHS PRN Insomnia Miscellaneous Medication 2 puff 04/10/19 10:00 Budesonide/Formoterol Fumarate [Symbicort 160-4.5 Mcg Inhaler] IH DAILY MANE Ondansetron HCl 4 mg 04/09/19 21:32 Zofran IV Q8H PRN Nausea And Vomiting Oxycodone/Acetaminophen 1 tab 04/09/19 21:32 04/10/19 06:16 Percocet 5/325 PO 1 tab Q6H PRN Administration Pain, Moderate (4-6) Oxycodone/Acetaminophen 1 tab 04/10/19 06:43 Percocet 5/325 PO Q6H PRN Pain , Severe (7-10) Sodium Chloride 10 ml 04/09/19 22:00 04/09/19 23:28 Sodium Chloride Flush Syringe 10 Ml IV 10 ml BID MANE Administration Sodium Chloride 10 ml 04/09/19 21:32 Sodium Chloride Flush Syringe 10 Ml IV PRN PRN LINE FLUSH
[2019-04-10] MEDS: HEPARIN SUB-Q SCH ×2 (10:59→22:28)
[2019-04-10 11:21] LABS: Calcium 9.5 mg/dL (8.4-10.2)
[2019-04-10] MEDS ORDERED: PROVENTIL IH PRN (14:23)
--- NOTE | 2019-04-10 14:41 | Consultation ---
History of Present Illness Consult date: 04/10/19 Consult reason: congestive heart failure History of present illness: This is a 78-year old woman with a history of chronic lung disease, COPD on home oxygen, chronic kidney disease, and sick sinus syndrome status post dual-chamber pacemaker. She has had extensive prior ischemic cardiac workup including a cardiac catheterization in 2008 that demonstrated normal coronary arteries. More recently, just six months ago, she had a normal thallium stress test and a normal LVEF by echocardiogram. Patient was brought to this hospital with complaints of shortness of breath, wheezing, admitted with COPD exacerbation. A cardiac consultation has been requested for "CHF". Patient denies chest pain. There is no lower extremity edema. Labs shows a creatinine of 1.9. She has normal BNP and a chest x-ray reports no evidence of interstitial edema. Her ECG is sinus rhythm with a chronic RBBB. Past History Past Medical History: No medical history Past Surgical History: No surgical history Social history: no significant social history Family history: no significant family history Medications and Allergies Allergies Allergy/AdvReac Type Severity Reaction Status Date / Time aspirin Allergy Hives Verified 03/15/18 13:11 Penicillins Allergy Hives Verified 03/15/18 13:11 Sulfa (Sulfonamide Allergy Hives Verified 03/15/18 13:11 Antibiotics) Home Medications Medication Instructions Recorded Confirmed Last Taken Type ALBUTEROL Inhaler(NF) [VENTOLIN 2 puff IH Q4H PRN #1 inha 11/01/18 04/09/19 Unknown Rx Inhaler(NF)] Acetaminophen [Acetaminophen TAB] 325 mg PO Q4H PRN #10 tablet 11/01/18 04/09/19 Unknown Rx Budesonide/Formoterol Fumarate 2 puff IH DAILY #1 hfa.aer.ad 11/01/18 04/09/19 Unknown Rx [Symbicort 160-4.5 Mcg Inhaler] Famotidine [Pepcid] 20 mg PO DAILY #30 tablet 11/01/18 04/09/19 Unknown Rx Ipratropium/Albuterol Sulfate 1 ampul IH TIDRT PRN #30 ampul.neb 11/01/18 04/09/19 Unknown Rx [DUONEB *Not for PRN Use*] Mirtazapine [Remeron 30mg TAB] 30 mg PO QHS PRN #30 tablet 11/01/18 04/09/19 Unknown Rx oxyCODONE /ACETAMINOPHEN [Percocet 1 tab PO Q6H PRN #10 tablet 11/01/18 04/09/19 Unknown Rx 5/325 mg] predniSONE [Deltasone] 10 mg PO DAILY 15 Days tablet 11/01/18 04/09/19 Unknown Rx Active Meds: Active Medications Acetaminophen (Tylenol) 650 mg PO Q4H PRN PRN Reason: Pain MILD(1-3)/Fever >100.5/THORNTON Albuterol (Proventil) 2.5 mg IH Q4HRT PRN PRN Reason: Shortness Of Breath Albuterol/Ipratropium (Duoneb *Not For Prn Use*) 1 ampul IH Q6HRT [facility] Last Admin: 04/10/19 14:10 Dose: 1 ampul Documented by: Arformoterol Tartrate (Brovana Nebu) 15 mcg IH Q12HRT [facility] Budesonide (Pulmicort) 1 mg IH Q12HRT [facility] Heparin Sodium (Porcine) (Heparin) 5,000 unit SUB-Q Q12HR [facility] Last Admin: 04/10/19 10:59 Dose: 5,000 unit Documented by: Sodium Chloride (Nacl 0.9% 1000 Ml) 1,000 mls @ 42 mls/hr IV DIRECT [facility] Magnesium Hydroxide (Milk Of Magnesia) 30 ml PO Q4H PRN PRN Reason: Constipation Methylprednisolone Sodium Succinate (Solu-Medrol) 80 mg IV Q6HR [facility] Last Admin: 04/10/19 06:16 Dose: 80 mg Documented by: Mirtazapine (Remeron) 30 mg PO QHS PRN PRN Reason: Insomnia Ondansetron HCl (Zofran) 4 mg IV Q8H PRN PRN Reason: Nausea And Vomiting Oxycodone/Acetaminophen (Percocet 5/325) 1 tab PO Q6H PRN PRN Reason: Pain, Moderate (4-6) Last Admin: 04/10/19 10:58 Dose: 1 tab Documented by: Sodium Chloride (Sodium Chloride Flush Syringe 10 Ml) 10 ml IV BID [facility] Last Admin: 04/09/19 23:28 Dose: 10 ml Documented by: Sodium Chloride (Sodium Chloride Flush Syringe 10 Ml) 10 ml IV PRN PRN PRN Reason: LINE FLUSH Physical Examination Vital Signs Pulse Resp 78 26 H 04/09/19 18:13 04/09/19 18:13 General appearance: no acute distress HEENT: Positive: PERRL Cardiac: Positive: Reg Rate and Rhythm Lungs: Positive: Decreased Breath Sounds Neuro: Positive: Grossly Intact Extremities: Absent: edema Results 04/09/19 18:27 04/10/19 10:19 Cardiac Enzymes 04/09/19 Range/Units 18:27 AST 16 (5-40) units/L CBC 04/09/19 Range/Units 18:27 WBC 3.8 L (4.5-11.0) K/mm3 RBC 3.49 L (3.65-5.03) M/mm3 Hgb 10.0 L (10.1-14.3) gm/dl Hct 30.1 L (30.3-42.9) % Plt Count 184 (140-440) K/mm3 Lymph # 1.0 L (1.2-5.4) K/mm3 [place] # 0.4 (0.0-0.8) K/mm3 Eos # 0.4 (0.0-0.4) K/mm3 Baso # 0.0 (0.0-0.1) K/mm3 Comprehensive Metabolic Panel 04/09/19 04/10/19 Range/Units 18:27 10:19 Sodium 140 141 (137-145) mmol/L Potassium 5.4 H 4.5 (3.6-5.0) mmol/L Chloride 99.7 93.6 L (98-107) mmol/L Carbon Dioxide 30 28 (22-30) mmol/L BUN 23 H 30 H (7-17) mg/dL Creatinine 1.9 H 2.5 H (0.7-1.2) mg/dL Glucose 89 197 H (65-100) mg/dL Calcium 9.6 9.5 (8.4-10.2) mg/dL AST 16 (5-40) units/L ALT 10 (7-56) units/L Alkaline Phosphatase 78 (35-129) units/L Total Protein 7.1 (6.3-8.2) g/dL Albumin 4.0 (3.9-5) g/dL Assessment and Plan COPD exacerbation Hx of sick sinus syndrome s/p pacemaker Chronic Kidney disease Hypertension RBBB, chronic Normal LVEF 55-65% by echo 10/2018. Normal stress thallium test 09/2019. Normal coronaries by [facility] in 2008. No cardiac workup indicated. We will defer to the hospitalist and pulmonary for management of chronic lung disease, COPD exacerbation.
[2019-04-10] MEDS ORDERED: PULMICORT IH SCH (20:00)
[2019-04-10] MEDS: BROVANA NEBU IH SCH (21:14)
[2019-04-10] MEDS: PULMICORT IH SCH (21:15)
[2019-04-11] MEDS: SOLU-Medrol IV SCH ×3 (05:43→12:58)
[2019-04-11 06:33] VITALS: BP 135/81
[2019-04-11] MEDS: DUONEB *Not for PRN Use IH SCH ×2 (08:31→13:57)
[2019-04-11] MEDS: BROVANA NEBU IH SCH (08:31)
[2019-04-11] MEDS: PULMICORT IH SCH (08:31)
[2019-04-11] MEDS: SODIUM CHLORIDE FLUSH SYRINGE 10 ML IV SCH (09:51)
[2019-04-11] MEDS: HEPARIN SUB-Q SCH (09:51)
--- NOTE | 2019-04-11 10:15 | Progress Note ---
Assessment and Plan COPD exacerbation Hx of sick sinus syndrome s/p pacemaker Chronic Kidney disease Hypertension RBBB, chronic Normal LVEF 55-65% by echo 10/2018. Normal stress thallium test 09/2019. Normal coronaries by [facility] in 2008. Conservative cardiac management. Subjective Date of service: 04/11/19 Interval history: Patient reports her breathing is better; wants to go home. Objective Vital Signs Temp Pulse Pulse Resp Resp BP Pulse Ox 04/11/19 04:56 98.3 F 101 H 20 135/81 93 04/11/19 02:00 94 H 04/10/19 23:56 98.3 F 91 H 20 136/68 93 04/10/19 23:34 97 04/10/19 22:49 100 04/10/19 21:33 106 H 20 04/10/19 21:19 94 04/10/19 21:18 104 H 20 04/10/19 20:17 98.7 F 112 H 20 133/71 91 04/10/19 16:30 98.2 F 18 134/84 04/10/19 14:11 93 H 19 04/10/19 14:07 92 H 18 04/10/19 12:18 98.5 F 18 137/82 - Physical Examination General: No Apparent Distress HEENT: Positive: PERRL Neck: Positive: trachea midline Cardiac: Positive: Reg Rate and Rhythm Lungs: Positive: Decreased Breath Sounds Neuro: Positive: Grossly Intact Extremities: Absent: edema - Labs and Meds Comprehensive Metabolic Panel 04/10/19 Range/Units 10:19 Sodium 141 (137-145) mmol/L Potassium 4.5 (3.6-5.0) mmol/L Chloride 93.6 L (98-107) mmol/L Carbon Dioxide 28 (22-30) mmol/L BUN 30 H (7-17) mg/dL Creatinine 2.5 H (0.7-1.2) mg/dL Glucose 197 H (65-100) mg/dL Calcium 9.5 (8.4-10.2) mg/dL
--- NOTE | 2019-04-11 12:38 | Consultation ---
History of Present Illness Consult date: 04/11/19 Reason for consult: dyspnea, cough, COPD History of present illness: 78 year old female with PMHx of CAD, CHF, COPD (home O2 dependent), CKD, depr ession, CVA, PAF, SSS s/p pacemaker, HTN, who was brought to the ER by EMS for c/o THORNTON, SOB and chest pain. Pt states that she woke up last morning with THORNTON, she later on developed cough, running nose, SOB. Pt also reports chest pain, she states that the pain felt like an elephant is sitting on her chest and lasted few minutes before coming to the ER. Patient improves when she was admitted to the hospital and started on breathing treatments. Currently she feels much better able to move around her room without breathing difficulty or chest pain. She had been admitted to the hospital multiple times with COPD and pneumonia to the past years. She follows routinely with Dr. Castillo at the pulmonary office No additional complaints reported. Asking if she can be discharged today Past History Past Medical History: No medical history Past Surgical History: No surgical history Social history: no significant social history Family history: no significant family history Medications and Allergies Allergies Allergy/AdvReac Type Severity Reaction Status Date / Time aspirin Allergy Hives Verified 03/15/18 13:11 Penicillins Allergy Hives Verified 03/15/18 13:11 Sulfa (Sulfonamide Allergy Hives Verified 03/15/18 13:11 Antibiotics) Home Medications Medication Instructions Recorded Confirmed Last Taken Type ALBUTEROL Inhaler(NF) [VENTOLIN 2 puff IH Q4H PRN #1 inha 11/01/18 04/09/19 Unknown Rx Inhaler(NF)] Acetaminophen [Acetaminophen TAB] 325 mg PO Q4H PRN #10 tablet 11/01/18 04/09/19 Unknown Rx Budesonide/Formoterol Fumarate 2 puff IH DAILY #1 hfa.aer.ad 11/01/18 04/09/19 Unknown Rx [Symbicort 160-4.5 Mcg Inhaler] Famotidine [Pepcid] 20 mg PO DAILY #30 tablet 11/01/18 04/09/19 Unknown Rx Ipratropium/Albuterol Sulfate 1 ampul IH TIDRT PRN #30 ampul.neb 11/01/18 04/09/19 Unknown Rx [DUONEB *Not for PRN Use*] Mirtazapine [Remeron 30mg TAB] 30 mg PO QHS PRN #30 tablet 11/01/18 04/09/19 Unknown Rx oxyCODONE /ACETAMINOPHEN [Percocet 1 tab PO Q6H PRN #10 tablet 11/01/18 04/09/19 Unknown Rx 5/325 mg] Prednisone [predniSONE 10 mg 10 mg PO .TAPER #1 tab.ds.pk 04/11/19 Unknown Rx (6-Day Pack, 21 Tabs)] Active Meds: Active Medications Acetaminophen (Tylenol) 650 mg PO Q4H PRN PRN Reason: Pain MILD(1-3)/Fever >100.5/THORNTON Albuterol (Proventil) 2.5 mg IH Q4HRT PRN PRN Reason: Shortness Of Breath Albuterol/Ipratropium (Duoneb *Not For Prn Use*) 1 ampul IH TIDRT [facility] Last Admin: 04/11/19 08:31 Dose: Not Given Documented by: Arformoterol Tartrate (Brovana Nebu) 15 mcg IH Q12HRT [facility] Last Admin: 04/11/19 08:31 Dose: 15 mcg Documented by: Budesonide (Pulmicort) 0.5 mg IH Q12HRT [facility] Last Admin: 04/11/19 08:31 Dose: 0.5 mg Documented by: Heparin Sodium (Porcine) (Heparin) 5,000 unit SUB-Q Q12HR [facility] Last Admin: 04/11/19 09:51 Dose: 5,000 unit Documented by: Sodium Chloride (Nacl 0.9% 1000 Ml) 1,000 mls @ 42 mls/hr IV DIRECT [facility] Magnesium Hydroxide (Milk Of Magnesia) 30 ml PO Q4H PRN PRN Reason: Constipation Last Admin: 04/10/19 22:27 Dose: 30 ml Documented by: Methylprednisolone Sodium Succinate (Solu-Medrol) 80 mg IV Q6HR [facility] Last Admin: 04/11/19 05:43 Dose: 80 mg Documented by: Mirtazapine (Remeron) 30 mg PO QHS PRN PRN Reason: Insomnia Last Admin: 04/10/19 22:28 Dose: 30 mg Documented by: Ondansetron HCl (Zofran) 4 mg IV Q8H PRN PRN Reason: Nausea And Vomiting Oxycodone/Acetaminophen (Percocet 5/325) 1 tab PO Q6H PRN PRN Reason: Pain, Moderate (4-6) Last Admin: 04/10/19 22:29 Dose: 1 tab Documented by: Sodium Chloride (Sodium Chloride Flush Syringe 10 Ml) 10 ml IV BID MANE Last Admin: 04/11/19 09:51 Dose: 10 ml Documented by: Sodium Chloride (Sodium Chloride Flush Syringe 10 Ml) 10 ml IV PRN PRN PRN Reason: LINE FLUSH Physical Examination Vital signs: Vital Signs Pulse Resp 78 26 H 04/09/19 18:13 04/09/19 18:13 General appearance: no acute distress Eyes: non-icteric ENT: oropharynx moist Neck: supple Ascultation: Bilateral: clear, diminished breath sounds Cardiovascular: regular rate and rhythm Gastrointestinal: normoactive bowel sounds, non-distended Integumentary: normal Extremities: no cyanosis Musculoskeletal: no deformities normal mental status, non-focal exam mood appropriate, affect normal Results - Laboratory Findings CBC and BMP: 04/09/19 18:27 04/10/19 10:19 ABG POC ABG pH 7.290 (7.35-7.45) L 04/09/19 18:19 POC ABG pCO2 65.6 (35-45) H 04/09/19 18:19 POC ABG pO2 113 (80-105) H 04/09/19 18:19 POC ABG HCO3 31.6 (22-26 mml/L) 04/09/19 18:19 POC ABG Total CO2 34 (23-27mmol/L) 04/09/19 18:19 POC ABG O2 Sat 98 04/09/19 18:19 Abnormal lab findings: Abnormal Labs 04/09/19 04/09/19 04/09/19 18:19 18:27 18:27 WBC 3.8 L RBC 3.49 L Hgb 10.0 L Hct 30.1 L [place] % (Auto) 10.6 H Eos % (Auto) 11.3 H Lymph # 1.0 L POC ABG pH 7.290 L POC ABG pCO2 65.6 H POC ABG pO2 113 H Potassium 5.4 H Chloride BUN 23 H Creatinine 1.9 H Glucose 04/10/19 10:19 WBC RBC Hgb Hct [place] % (Auto) Eos % (Auto) Lymph # POC ABG pH POC ABG pCO2 POC ABG pO2 Potassium Chloride 93.6 L BUN 30 H Creatinine 2.5 H Glucose 197 H - Diagnostic Findings Chest x-ray: report reviewed, image reviewed Assessment and Plan COPD exacerbation Acute tracheobronchitis Recommendations Ambulate patient and monitor oximetry. Add portable oxygen 2 L/m if oximetry below 89% on room air. Update influenza and pneumonia vaccination, if not completed already. Candidate for pulmonary rehabilitation Outpatient pulmonary evaluation, PFT workup for COPD severity stratification Prednisone 40 mg daily and DC and 5-7 days Inhaler therapy including LAMA, LABA/ICS therapy, per GOLD guidelines. She likes Symbicort at home plus prednisone for her flareups. I might suggest combination LAMA/LABA without inhaled steroids, in view recent transient lower respiratory tract infection/pneumonia Nutritional support, weight reduction diet. BMI under 30 and avoid malnutrition, BMI under 19
--- NOTE | 2019-04-11 12:40 | Discharge Summary ---
Providers - Providers Date of Admission: 04/09/19 21:32 Attending physician: JORGE FLORES MD 04/10/19 11:05 Consult to Physician [CONS] Routine Comment: Consulting Provider: TIFFANIE PRICE Physician Instructions: Reason For Exam: CHF 04/10/19 11:06 Consult to Physician [CONS] Routine Comment: Consulting Provider: ADELAIDA PERERA Physician Instructions: Reason For Exam: COPD Primary care physician: TOM GARDUNO Hospitalization Condition: Stable Hospital course: 79F who was admitted for copd exacerbation, she was rx with steroids, nebs and chest pt, she improved . SHe was seen by cardiology for chronic heart disease and they recommended continuing her chronic meds 1. COPD with acute exacerbation (home O2 dependent) 2. Acute dyspnea 3. HTN (BP stable) 4. H/o SSS status post pacemaker 5. CAD/CHF (EF unknown) 6. 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 Depression Disposition: DC-01 TO HOME OR SELFCARE Time spent for discharge: 33 mins Core Measure Documentation - Palliative Care Palliative Care/ Comfort Measures: Not Applicable - Core Measures Any of the following diagnoses?: none Exam - Constitutional Vitals: Temp Pulse Resp BP Pulse Ox 98.3 F 89 20 135/81 93 04/11/19 04:56 04/11/19 10:00 04/11/19 04:56 04/11/19 04:56 04/11/19 04:56 General appearance: Present: no acute distress, well-nourished - EENT Eyes: Present: PERRL ENT: hearing intact, clear oral mucosa - Neck Neck: Present: supple, normal ROM - Respiratory Respiratory effort: normal Respiratory: bilateral: CTA - Cardiovascular Heart Sounds: Present: S1 & S2. Absent: rub, click - Extremities Extremities: pulses symmetrical, No edema Peripheral Pulses: within normal limits - Abdominal General gastrointestinal: Present: soft, non-tender, non-distended, normal bowel sounds Female genitourinary: Present: normal - Integumentary Integumentary: Present: clear, warm, dry - Musculoskeletal Musculoskeletal: gait normal, strength equal bilaterally - Psychiatric Psychiatric: appropriate mood/affect, intact judgment & insight - Neurologic Neurologic: CNII-XII intact, moves all extremities Plan Follow up with: BRENDA VALDEZ MD [Staff Physician] - 7 Days Prescriptions: Prednisone [predniSONE 10 mg (6-Day Pack, 21 Tabs)] 10 mg PO .TAPER #1 tab.ds.pk
== END 2019-04-11 15:28 | disposition home or self-care (01) ==
LOC: ED 17:19 → 4A 21:32 → INTOOBSV 21:32
PROVIDERS: ADMIT Internal Medicine; ATTEND Internal Medicine
DX: J44.1 Chronic obstructive pulmonary disease with (acute) exacerbation (principal); R06.00 Dyspnea, unspecified; I25.10 Atherosclerotic heart disease of native coronary artery without angina pectoris; F32.9 Major depressive disorder, single episode, unspecified; I13.0 Hypertensive heart and chronic kidney disease with heart failure and stage 1 through stage 4 chronic kidney disease, or unspecified chronic kidney disease; N18.9 Chronic kidney disease, unspecified; I50.9 Heart failure, unspecified; I45.10 Unspecified right bundle-branch block; Z95.1 Presence of aortocoronary bypass graft; Z86.73 Personal history of transient ischemic attack (TIA), and cerebral infarction without residual deficits; Z99.81 Dependence on supplemental oxygen; Z87.891 Personal history of nicotine dependence
CPT/HCPCS: 36415; 71045; 80048; 80053; 82803; 83735; 83880; 84484; 85025; 93005; 93010; 94640; 94760; 96372; 96374; 96375; 96376; 99291; G0378; J1644; J1940; J2930

== ENCOUNTER 2019-06-03 09:53 | Outpatient (CLI) | payer MEDICARE ==
[2019-06-03 10:50] LABS: Albumin 4.3 g/dL (3.9-5); Calcium 9.3 mg/dL (8.4-10.2)
== END 2019-06-03 09:54 | disposition home or self-care (01) ==
LOC: LAB 09:53
PROVIDERS: ATTEND Internal Medicine Nephrology
DX: I12.9 Hypertensive chronic kidney disease with stage 1 through stage 4 chronic kidney disease, or unspecified chronic kidney disease (principal); N18.4 Chronic kidney disease, stage 4 (severe); J44.9 Chronic obstructive pulmonary disease, unspecified
CPT/HCPCS: 36415; 80048; 82040; 84100

== ENCOUNTER 2019-08-07 13:27 | Inpatient (IN) | payer MEDICARE ==
--- NOTE | 2019-08-07 14:15 | XRay Report ---
CHEST 1 VIEW INDICATION: Chest Pain. COMPARISON: 04/09/2019 FINDINGS: Support devices: None. Heart: Within normal limits. 2-lead pacemaker device remains in the same position. Lungs/Pleura: The lungs are mildly hyperinflated with mild chronic interstitial changes. No infiltrat e, pleural effusion or pneumothorax. Additional findings: None. IMPRESSION: No acute findings. No significant change since 04/09/2019. Signer Name: Geovani Haywood Jr, MD Signed: 08/07/2019 2:11 PM Workstation Name: [id number]
[2019-08-07 14:37] LABS: Basophils % (Auto) 0.3 % (0.0-1.8); Eosinophils % (Auto) 0.3 % (0.0-4.3); Hematocrit 28.4 % (30.3-42.9); Hemoglobin 9.2 gm/dl (10.1-14.3); Lymphocytes # (Auto) 0.3 K/mm3 (1.2-5.4); Lymphocytes % (Auto) 12.6 % (13.4-35.0); Mean Corpuscular HGB Conc 32 % (30-34); Mean Corpuscular Volume 88 fl (79-97); Monocytes # (Auto) 0.1 K/mm3 (0.0-0.8); Monocytes % (Auto) 2.8 % (0.0-7.3); Platelet Count 174 K/mm3 (140-440); Red Blood Count 3.25 M/mm3 (3.65-5.03); Red Cell Distribution Width 13.9 % (13.2-15.2)
[2019-08-07] MEDS ORDERED: ALBUTEROL 2.5 MG/3 ML NEBU IH ONE ×2 (14:46)
[2019-08-07] MEDS ORDERED: IPRATROPIUM/ALBUTEROL SULFATE 3 ML AMPUL.NEB IH ONE (14:51)
[2019-08-07 14:52] LABS: BUN/Creatinine Ratio 9; Blood Urea Nitrogen 20 mg/dL (7-17); Calcium 8.8 mg/dL (8.4-10.2); Hemolysis Index 0
[2019-08-07] MEDS ORDERED: HYDROcodone/ACETAMINOPHEN 5-325 MG TAB PO ONE (14:59)
--- NOTE | 2019-08-07 14:59 | Emergency Department Report ---
ED Chest Pain HPI - General Chief Complaint: Chest Pain Stated Complaint: DIFFICULTY BREATHING Time Seen by Provider: 08/07/19 13:54 Source: patient Mode of arrival: Ambulatory Limitations: No Limitations - History of Present Illness Initial Comments: 79-year-old -Tajik female patient with history of COPD, CHF, renal failure, hypertension, A. fib, MA, and CVA presents to the ED with complaints of worsening shortness of breath 2 weeks and intermittent chest pain 1 week. Patient follows with Dr. Whitt, pulmonology-states she was seen last week and placed on antibiotics. She states her symptoms seemed to have improved and then worsened. She states chest pain suddenly worsened today and feels like an elephant on her chest. Pain is left-sided in an 8 out of 10 in severity. Patient is chronically on 3 L of home oxygen. She denies new or worsening cough. MD Complaint: chest pain -: Sudden Onset: during rest Pain Location: left chest Pain Radiation: none Severity: severe Severity scale (0 -10): 8 Quality: heaviness Consistency: intermittent Improves With: nothing Worsens With: nothing re: dyspnea. denies: nausea Other Symptoms: palpitations. denies: fever, syncope Treatments Prior to Arrival: oxygen - Related Data On Oral Contraceptives: No Previous Rx's Medication Instructions Recorded Last Taken Type ALBUTEROL Inhaler(NF) [VENTOLIN 2 puff IH Q4H PRN #1 inha 11/01/18 08/07/19 Rx Inhaler(NF)] Acetaminophen [Acetaminophen TAB] 325 mg PO Q4H PRN #10 tablet 11/01/18 08/07/19 Rx Budesonide/Formoterol Fumarate 2 puff IH DAILY #1 hfa.aer.ad 11/01/18 08/07/19 Rx [Symbicort 160-4.5 Mcg Inhaler] Famotidine [Pepcid] 20 mg PO DAILY #30 tablet 11/01/18 08/07/19 Rx Ipratropium/Albuterol Sulfate 1 ampul IH TIDRT PRN #30 ampul.neb 11/01/18 08/07/19 Rx [DUONEB *Not for PRN Use*] Mirtazapine [Remeron 30mg TAB] 30 mg PO QHS PRN #30 tablet 11/01/18 08/07/19 Rx Prednisone [predniSONE 10 mg 10 mg PO .TAPER #1 tab.ds.pk 04/11/19 08/07/19 Rx (6-Day Pack, 21 Tabs)] Allergies Allergy/AdvReac Type Severity Reaction Status Date / Time aspirin Allergy Hives Verified 03/15/18 13:11 Penicillins Allergy Hives Verified 03/15/18 13:11 Sulfa (Sulfonamide Allergy Hives Verified 03/15/18 13:11 Antibiotics) Heart Score - HEART Score History: Moderately suspicious EKG: Non-specific Age: > 65 Risk factors: > 3 risk factors or hx of atherosclerotic disease Troponin: < normal limit HEART Score: 6 - Critical Actions Critical Actions: 4-6 pts:12-16.6% risk of adverse cardiac event. Should be admitted ED Review of Systems ROS: Stated complaint: DIFFICULTY BREATHING Other details as noted in HPI Constitutional: denies: chills, fever ENT: denies: throat pain Respiratory: shortness of breath, SOB with exertion, SOB at rest Cardiovascular: chest pain, palpitations Gastrointestinal: denies: abdominal pain, nausea, vomiting ED Past Medical Hx - Past Medical History Previous Medical History?: Yes Hx Hypertension: Yes Hx CVA: Yes (x 2) Hx Heart Attack/AMI: No Hx Congestive Heart Failure: Yes Hx Diabetes: No Hx Deep Vein Thrombosis: No Hx Pulmonary Embolism: No Hx Renal Disease: Yes Hx Arthritis: Yes Hx Kidney Stones: No Hx Asthma: No Hx COPD: Yes Hx Tuberculosis: No Hx HIV: No Additional medical history: Chronic Bronchitis - Surgical History Past Surgical History?: Yes Hx Coronary Stent: No Hx Open Heart Surgery: Yes Hx Pacemaker: Yes Hx Internal Defibrillator: No Hx Cholecystectomy: No Hx Appendectomy: No Hx Breast Surgery: No Additional Surgical History: Right Knee Surgery , demand pacemaker (90's). Hyst. cataract removal in both eyes, - Social History Smoking Status: Never Smoker - Medications Home Medications: Home Medications Medication Instructions Recorded Confirmed Last Taken Type ALBUTEROL Inhaler(NF) [VENTOLIN 2 puff IH Q4H PRN #1 inha 11/01/18 08/07/19 08/07/19 Rx Inhaler(NF)] Acetaminophen [Acetaminophen TAB] 325 mg PO Q4H PRN #10 tablet 11/01/18 08/07/19 08/07/19 Rx Budesonide/Formoterol Fumarate 2 puff IH DAILY #1 hfa.aer.ad 11/01/18 08/07/19 08/07/19 Rx [Symbicort 160-4.5 Mcg Inhaler] Famotidine [Pepcid] 20 mg PO DAILY #30 tablet 11/01/18 08/07/19 08/07/19 Rx Ipratropium/Albuterol Sulfate 1 ampul IH TIDRT PRN #30 ampul.neb 11/01/18 08/07/19 08/07/19 Rx [DUONEB *Not for PRN Use*] Mirtazapine [Remeron 30mg TAB] 30 mg PO QHS PRN #30 tablet 11/01/18 08/07/19 08/07/19 Rx Prednisone [predniSONE 10 mg 10 mg PO .TAPER #1 tab.ds.pk 04/11/19 08/07/19 08/07/19 Rx (6-Day Pack, 21 Tabs)] ED Physical Exam - General Limitations: No Limitations General appearance: alert, in no apparent distress - Head Head exam: Present: atraumatic - Eye Eye exam: Present: normal appearance - ENT ENT exam: Present: normal exam - Respiratory Respiratory exam: Present: decreased breath sounds (bilaterally). Absent: wheezes, rales, rhonchi, chest wall tenderness, accessory muscle use - Cardiovascular Cardiovascular Exam: Present: regular rate, normal rhythm. Absent: tachycardia - GI/Abdominal GI/Abdominal exam: Present: soft. Absent: tenderness, guarding - Extremities Exam Extremities exam: Present: normal inspection - Neurological Exam Neurological exam: Present: alert, oriented X3 - Psychiatric Psychiatric exam: Present: normal affect, normal mood - Skin Skin exam: Present: warm, dry, intact, normal color. Absent: rash ED Course Vital Signs 08/07/19 08/07/19 08/07/19 13:40 13:47 14:01 Temperature 97.8 F Pulse Rate 112 H 97 H Pulse Rate [ Anterior Bilateral Throughout] Pulse Rate [ Posterior Bilateral Throughout] Respiratory 18 19 Rate Respiratory Rate [Anterior Bilateral Throughout] Respiratory Rate [Posterior Bilateral Throughout] Blood Pressure 127/67 O2 Sat by Pulse 97 97 Oximetry 08/07/19 08/07/19 08/07/19 15:33 16:01 18:01 Temperature Pulse Rate 102 H 95 H Pulse Rate [ 86 Anterior Bilateral Throughout] Pulse Rate [ 88 Posterior Bilateral Throughout] Respiratory 25 H 18 Rate Respiratory 19 Rate [Anterior Bilateral Throughout] Respiratory 25 H Rate [Posterior Bilateral Throughout] Blood Pressure 128/80 150/82 O2 Sat by Pulse 96 Oximetry SHIRAZ score - Shiraz Score Age > 65: (1) Yes Aspirin use within the Past 7 Days: (0) No 3 or more CAD Risk Factors: (1) Yes 2 or more Angina events in past 24 hrs: (1) Yes Known CAD with more than 50% Stenosis: (0) No Elevated Cardiac Markers: (0) No ST Deviation Greater than 0.5mm: (0) No SHIRAZ Score: 3 ED Medical Decision Making - Lab Data Result diagrams: 08/07/19 14:09 08/07/19 14:09 - Medical Decision Making 79-year-old -Taj[place] female patient with extensive medical history including MA and CVA's is here for chest pain for a week and worsening times last night and worsening shortness of breath 2 weeks. Troponin WNL. EKG without acute changes. Heart score is a 6. Patient states mild improvement in chest pain with oxycodone 5mg. Discussed patient with Dr. Sahu-pt to be admitted. Critical care attestation.: If time is entered above; I have spent that time in minutes in the direct care of this critically ill patient, excluding procedure time. ED Disposition Clinical Impression: Chest pain Disposition: OP ADMIT IP TO THIS HOSP Is pt being admited?: Yes Condition: Stable Instructions: Chest Pain (ED) Referrals: PRIMARY CARE, [Primary Care Provider] - 3-5 Days
[2019-08-07] MEDS ORDERED: oxyCODONE 5 MG TAB PO ONE (16:49)
[2019-08-07] MEDS ORDERED: MORPHINE 2 MG/1 ML INJ IV ONE (20:06)
[2019-08-07] MEDS ORDERED: MORPHINE 2 MG/1 ML INJ ONE (20:08)
[2019-08-07] MEDS ORDERED: ACETAMINOPHEN 325 MG TAB PO PRN ×2 (22:03→22:06)
[2019-08-07] MEDS ORDERED: HYDROmorphone 1 MG/1 ML INJ IV PRN (22:03)
[2019-08-07] MEDS ORDERED: ONDANSETRON 4 MG/2 ML INJ IV PRN (22:03)
[2019-08-07] MEDS ORDERED: oxyCODONE /ACETAMINOPHEN 5-325MG TAB PO PRN (22:03)
[2019-08-07] MEDS ORDERED: IPRATROPIUM/ALBUTEROL SULFATE 3 ML AMPUL.NEB IH PRN (22:06)
[2019-08-07] MEDS ORDERED: MIRTAZAPINE 30 MG TAB PO PRN (22:06)
[2019-08-07] MEDS ORDERED: ALBUTEROL 8.5 GM INHALATION IH PRN (22:06)
[2019-08-07] MEDS ORDERED: ALBUTEROL 2.5 MG/3 ML NEBU IH PRN (22:59)
[2019-08-07] MEDS ORDERED: POLYETHYLENE GLYCOL 3350 17 GM POWDER PO PRN (23:49)
[2019-08-08 05:35] LABS: Basophils % (Auto) 0.4 % (0.0-1.8); Eosinophils # (Auto) 0.2 K/mm3 (0.0-0.4); Eosinophils % (Auto) 6.8 % (0.0-4.3); Hematocrit 26.7 % (30.3-42.9); Hemoglobin 8.6 gm/dl (10.1-14.3); Lymphocytes # (Auto) 1.1 K/mm3 (1.2-5.4); Mean Corpuscular HGB Conc 32 % (30-34); Mean Corpuscular Volume 88 fl (79-97); Monocytes # (Auto) 0.4 K/mm3 (0.0-0.8); Monocytes % (Auto) 11.8 % (0.0-7.3); Platelet Count 171 K/mm3 (140-440); Red Blood Count 3.05 M/mm3 (3.65-5.03); Red Cell Distribution Width 14.3 % (13.2-15.2)
[2019-08-08 05:58] LABS: Alanine Aminotransferase 7 units/L (7-56); Albumin 3.8 g/dL (3.9-5); BUN/Creatinine Ratio 11; Blood Urea Nitrogen 24 mg/dL (7-17); Calcium 8.7 mg/dL (8.4-10.2); Hemolysis Index 1
--- NOTE | 2019-08-08 07:19 | Event Note ---
Date: 08/07/19 Chest pain r/o NV protocol See H/p in reports
[2019-08-08] MEDS: ARFORMOTEROL 15 MCG/2 ML NEBU IH SCH ×2 (07:41→20:21)
--- NOTE | 2019-08-08 07:56 | History and Physical Report ---
CHIEF COMPLAINT: Chest pain for 1 week. HISTORY OF PRESENT ILLNESS: A 79-year-old -Swazi female with history of COPD, CHF, renal failure, hypertension, atrial fibrillation, and cerebrovascular accident, who presents with the chest pain for the 1 week and shortness of breath for 2 weeks' duration. The patient has recently seen a centrifuge operator and was put on antibiotics for upper respiratory infection. Her symptoms are worsened. Her chest pain is worsened today. The patient is chronically on 3 liters of home oxygen at home and no exacerbating or relieving factors. PAST MEDICAL HISTORY: Significant for COPD, gastroesophageal reflux disease, congestive heart failure and hypertension. CURRENT MEDICATIONS: On chart. PAST SURGICAL HISTORY: Right knee surgery, open heart surgery in the past, demand pacemaker, and cataract removal. SOCIAL HISTORY: Does not smoke. No alcohol and no recreational drugs. FAMILY HISTORY: Hypertension. REVIEW OF SYSTEMS: Significant for shortness of breath and cough and recurrent chest pain for 1 week. PHYSICAL EXAMINATION: GENERAL: Elderly female, cooperative during the examination. VITAL SIGNS: Blood pressure is 130/73, temperature is 98.6 and pulse is 91. HEENT: Unremarkable. NECK: Supple, no lymphadenopathy and no thyromegaly. The accessory muscles of respiration are not prominent. LUNGS: Bilateral rhonchi are present. CARDIOVASCULAR SYSTEM: S1 and S2 are heard. No gallop, no murmur and no rub. Apical impulse in the left fifth intercostal space in the midclavicular line. ABDOMEN: Soft and benign. No hepatosplenomegaly. No guarding. No rigidity. The hernial orifices are normal. EXTREMITIES: Good pedal pulses. No pedal edema. CENTRAL NERVOUS SYSTEM: Alert and oriented x 4, nonfocal exam. SKIN: Normal. LABORATORY DATA: Significant for white count of 2800, H and H of 9.2 and 28.4 and platelet count of 174,000. Electrolytes are normal. BUN and creatinine are 220 and 2.2. Glucose is 159. A1c is 5.2. Troponin is 0.010. BNP is 352. Albumin is 3.8. DIAGNOSTIC DATA: EKG shows the heart rate of 99 per minute, sinus rhythm, probable left atrial enlargement and left ventricular hypertrophy. Chest x-ray shows no acute findings. ASSESSMENT AND PLAN: 1. Chest pain, rule out myocardial infarction, chest pain protocol. The patient is admitted in observation status. 2. Asthma exacerbation/chronic obstructive pulmonary disease exacerbation. Continue DuoNebs around the clock and the Symbicort. IV Levaquin and low dose Solu-Medrol are initiated. 3. Coronary artery disease. Continue the aspirin. 4. Chronic kidney disease. A renal follow up as outpatient. 5. Anemia. Anemia workup. 6. Deep venous thrombosis prophylaxis, heparin 5000 q.12h. JOB# [id number] CODY/RODOLFO VALENCIA
[2019-08-08] MEDS ORDERED: methylPREDNISolone Sod Succinate 125 MG/2 ML INJ IV SCH (08:00)
[2019-08-08] MEDS ORDERED: BUDESONIDE 0.5 MG/2 ML NEBU IH SCH (08:00)
[2019-08-08] MEDS ORDERED: REGADENOSON 0.4 MG/5 ML INJ IV ONE (08:33)
[2019-08-08] MEDS ORDERED: NON-FORMULARY EACH (Budesonide/Formoterol Fumarate [Symbicort 160-4.5 Mcg Inhaler] 2 PUFF) IH SCH (10:00)
[2019-08-08] MEDS ORDERED: FAMOTIDINE 20 MG TAB PO SCH (10:00)
--- NOTE | 2019-08-08 10:05 | Consultation ---
History of Present Illness Consult date: 08/08/19 Consult reason: shortness of breath History of present illness: Patient is presenting with worsening shortness of breath and wheezing. She denies chest pain. She states that her symptoms completely resolved after inhaler therapy in the emergency room. There are no ECG changes and troponin is negative so far. No events recorded on tele. Past History Past Medical History: COPD, heart failure, renal failure, stroke Social history: no significant social history Family history: no significant family history Medications and Allergies Allergies Allergy/AdvReac Type Severity Reaction Status Date / Time aspirin Allergy Hives Verified 03/15/18 13:11 Penicillins Allergy Hives Verified 03/15/18 13:11 Sulfa (Sulfonamide Allergy Hives Verified 03/15/18 13:11 Antibiotics) Home Medications Medication Instructions Recorded Confirmed Last Taken Type ALBUTEROL Inhaler(NF) [VENTOLIN 2 puff IH Q4H PRN #1 inha 11/01/18 08/07/19 08/07/19 Rx Inhaler(NF)] Acetaminophen [Acetaminophen TAB] 325 mg PO Q4H PRN #10 tablet 11/01/18 08/07/19 08/07/19 Rx Budesonide/Formoterol Fumarate 2 puff IH DAILY #1 hfa.aer.ad 11/01/18 08/07/19 08/07/19 Rx [Symbicort 160-4.5 Mcg Inhaler] Famotidine [Pepcid] 20 mg PO DAILY #30 tablet 11/01/18 08/07/19 08/07/19 Rx Ipratropium/Albuterol Sulfate 1 ampul IH TIDRT PRN #30 ampul.neb 11/01/18 08/07/19 08/07/19 Rx [DUONEB *Not for PRN Use*] Mirtazapine [Remeron 30mg TAB] 30 mg PO QHS PRN #30 tablet 11/01/18 08/07/19 08/07/19 Rx Prednisone [predniSONE 10 mg 10 mg PO .TAPER #1 tab.ds.pk 04/11/19 08/07/19 1 Rx (6-Day Pack, 21 Tabs)] Active Meds: Active Medications Acetaminophen (Tylenol) 650 mg PO Q4H PRN PRN Reason: Pain MILD(1-3)/Fever >100.5/THORNTON Albuterol (Proventil) 2.5 mg IH Q4HRT PRN PRN Reason: Shortness Of Breath Arformoterol Tartrate (Brovana Nebu) 15 mcg IH Q12HRT [facility] Last Admin: 08/08/19 07:41 Dose: 15 mcg Documented by: Budesonide (Pulmicort) 1 mg IH Q12HRT [facility] Last Admin: 08/08/19 07:40 Dose: 0.5 mg Documented by: Famotidine (Pepcid) 10 mg PO BID [facility] Heparin Sodium (Porcine) (Heparin) 5,000 unit SUB-Q Q12HR [facility] Hydromorphone HCl (Dilaudid) 0.5 mg IV Q3H PRN PRN Reason: Pain , Severe (7-10) Levofloxacin/Dextrose (Levaquin 750mg/150ml) 750 mg in 150 mls @ 100 mls/hr IV ONCE ONE; Protocol Stop: 08/08/19 10:29 Levofloxacin/Dextrose (Levaquin 500mg/100ml) 500 mg in 100 mls @ 100 mls/hr IV Q48HR [facility] Methylprednisolone Sodium Succinate (Solu-Medrol) 40 mg IV Q8HR [facility] Mirtazapine (Remeron) 30 mg PO QHS PRN PRN Reason: Insomnia Ondansetron HCl (Zofran) 4 mg IV Q8H PRN PRN Reason: Nausea And Vomiting Oxycodone/Acetaminophen (Percocet 5/325) 1 tab PO Q6H PRN PRN Reason: Pain, Moderate (4-6) Polyethylene Glycol (Miralax 3350) 17 gm PO QDAY PRN PRN Reason: Constipation Sodium Chloride (Sodium Chloride Flush Syringe 10 Ml) 10 ml IV BID [facility] Sodium Chloride (Sodium Chloride Flush Syringe 10 Ml) 10 ml IV PRN PRN PRN Reason: LINE FLUSH Review of Systems All systems: negative Physical Examination Vital Signs Pulse Resp Pulse Ox 112 H 18 97 08/07/19 13:40 08/07/19 13:40 08/07/19 13:40 General appearance: no acute distress HEENT: Positive: PERRL Neck: Positive: neck supple Cardiac: Positive: Reg Rate and Rhythm Lungs: Positive: Normal Exam Neuro: Positive: Grossly Intact Abdomen: Positive: Soft Extremities: Absent: edema Results 08/08/19 04:53 08/08/19 04:53 Cardiac Enzymes 08/08/19 Range/Units 04:53 AST 13 (5-40) units/L CBC 08/07/19 08/08/19 Range/Units 14:09 04:53 WBC 2.8 L 3.3 L (4.5-11.0) K/mm3 RBC 3.25 L 3.05 L (3.65-5.03) M/mm3 Hgb 9.2 L 8.6 L (10.1-14.3) gm/dl Hct 28.4 L 26.7 L (30.3-42.9) % Plt Count 174 171 (140-440) K/mm3 Lymph # 0.3 L 1.1 L (1.2-5.4) K/mm3 Dupage # 0.1 0.4 (0.0-0.8) K/mm3 Eos # 0.0 0.2 (0.0-0.4) K/mm3 Baso # 0.0 0.0 (0.0-0.1) K/mm3 Comprehensive Metabolic Panel 08/07/19 08/08/19 Range/Units 14:09 04:53 Sodium 145 146 H (137-145) mmol/L Potassium 4.7 4.1 (3.6-5.0) mmol/L Chloride 102.7 105.8 (98-107) mmol/L Carbon Dioxide 28 30 (22-30) mmol/L BUN 20 H 24 H (7-17) mg/dL Creatinine 2.2 H 2.2 H (0.7-1.2) mg/dL Glucose 159 H 97 (65-100) mg/dL Calcium 8.8 8.7 (8.4-10.2) mg/dL AST 13 (5-40) units/L ALT 7 (7-56) units/L Alkaline Phosphatase 64 (35-129) units/L Total Protein 6.3 (6.3-8.2) g/dL Albumin 3.8 L (3.9-5) g/dL Assessment and Plan COPD exacerbation Reason for admission CXR showing NAP Hx of sick sinus syndrome s/p pacemaker Chronic Kidney disease Hypertension RBBB, chronic Normal LVEF 55-65% by echo 10/2018. Normal stress thallium test 09/2018. Normal coronaries by [facility] in 2008. Conservative cardiac management. No need for stress testing
[2019-08-08] MEDS: FAMOTIDINE 10 MG TAB PO SCH ×2 (10:30→22:04)
[2019-08-08] MEDS: methylPREDNISolone Sod Succinate 40 MG/1 ML INJ IV SCH ×3 (10:30→22:04)
[2019-08-08] MEDS: HEPARIN 5,000 UNIT/1 ML VIAL SUB-Q SCH ×2 (10:30→22:04)
--- NOTE | 2019-08-08 12:22 | Progress Note ---
Assessment and Plan Assessment and plan: COPD exacerbation - Patient is being managed according to COPD exacerbation protocol Chest pain -Resolved -Cardiology's in no further cardiac workup needed Hx of sick sinus syndrome s/p pacemaker Chronic Kidney disease - Neurology is following Hypertension - Resume home medications RBBB, chronic Normal LVEF 55-65% by echo 10/2018. Normal stress thallium test 09/2018. Normal coronaries by [facility] in 2008. Conservative cardiac management. Disposition; continue inpatient care, possible discharge tomorrow after controlling COPD exacerbation. History Interval history: Patient was seen and evaluated this morning, patient is still complaining shortness of breath, but better than admission condition. Hospitalist Physical - Physical exam Narrative exam: Not in cardiopulmonary distress. The patient appeared well nourished and normally developed. Vital signs as documented. Head exam is unremarkable. No scleral icterus . Neck is without jugular venous distension, thyromegaly, or carotid bruits. Lungs decreased air entry on the bibasilar area. Cardiac exam reveals regular rate and Rhythm. First and second heart sounds normal. No murmurs, rubs or gallops. Abdominal exam reveals normal bowel sounds, no masses, no organomegaly and no aortic enlargement. Extremities are nonedematous and both femoral and pedal pulses are normal. 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 No focal weakness. - Constitutional Vitals: Temp Pulse Resp BP Pulse Ox 98.0 F 90 18 136/87 94 08/08/19 08:10 08/08/19 08:17 08/08/19 08:10 08/08/19 08:10 08/08/19 08:42 General appearance: Present: no acute distress Results - Labs CBC & Chem 7: 08/08/19 04:53 08/08/19 04:53 Labs: Laboratory Last Values WBC 3.3 K/mm3 (4.5-11.0) L 08/08/19 04:53 RBC 3.05 M/mm3 (3.65-5.03) L 08/08/19 04:53 Hgb 8.6 gm/dl (10.1-14.3) L 08/08/19 04:53 Hct 26.7 % (30.3-42.9) L 08/08/19 04:53 MCV 88 fl (79-97) 08/08/19 04:53 MCH 28 pg (28-32) 08/08/19 04:53 MCHC 32 % (30-34) 08/08/19 04:53 RDW 14.3 % (13.2-15.2) 08/08/19 04:53 Plt Count 171 K/mm3 (140-440) 08/08/19 04:53 Lymph % (Auto) 34.0 % (13.4-35.0) 08/08/19 04:53 [place] % (Auto) 11.8 % (0.0-7.3) H 08/08/19 04:53 Eos % (Auto) 6.8 % (0.0-4.3) H 08/08/19 04:53 Baso % (Auto) 0.4 % (0.0-1.8) 08/08/19 04:53 Lymph # 1.1 K/mm3 (1.2-5.4) L 08/08/19 04:53 [place] # 0.4 K/mm3 (0.0-0.8) 08/08/19 04:53 Eos # 0.2 K/mm3 (0.0-0.4) 08/08/19 04:53 Baso # 0.0 K/mm3 (0.0-0.1) 08/08/19 04:53 Seg Neutrophils % 47.0 % (40.0-70.0) 08/08/19 04:53 Seg Neutrophils # 1.5 K/mm3 (1.8-7.7) L 08/08/19 04:53 D-Dimer 186.34 ng/mlDDU (0-234) 08/07/19 14:54 Sodium 146 mmol/L (137-145) H 08/08/19 04:53 Potassium 4.1 mmol/L (3.6-5.0) 08/08/19 04:53 Chloride 105.8 mmol/L (98-107) 08/08/19 04:53 Carbon Dioxide 30 mmol/L (22-30) 08/08/19 04:53 Anion Gap 14 mmol/L 08/08/19 04:53 BUN 24 mg/dL (7-17) H 08/08/19 04:53 Creatinine 2.2 mg/dL (0.7-1.2) H 08/08/19 04:53 Estimated GFR 26 ml/min 08/08/19 04:53 BUN/Creatinine Ratio 11 % 08/08/19 04:53 Glucose 97 mg/dL (65-100) 08/08/19 04:53 Hemoglobin A1c 5.2 % (4-6) 08/07/19 14:09 Calcium 8.7 mg/dL (8.4-10.2) 08/08/19 04:53 Transferrin 183 mg/dl (192-382) L 08/08/19 08:51 Total Bilirubin < 0.20 mg/dL (0.1-1.2) 08/08/19 04:53 AST 13 units/L (5-40) 08/08/19 04:53 ALT 7 units/L (7-56) 08/08/19 04:53 Alkaline Phosphatase 64 units/L (35-129) 08/08/19 04:53 Troponin T < 0.010 ng/mL (0.00-0.029) 08/08/19 04:53 NT-Pro-B Natriuret Pep 352.9 pg/mL (0-900) 08/07/19 14:09 Total Protein 6.3 g/dL (6.3-8.2) 08/08/19 04:53 Albumin 3.8 g/dL (3.9-5) L 08/08/19 04:53 Albumin/Globulin Ratio 1.5 % 08/08/19 04:53 Vitamin B12 377.3 pg/mL (211-911) 08/08/19 08:51 Active Medications - Current Medications Current Medications: Generic Name Dose Route Start Last Admin Trade Name Freq PRN Reason Stop Dose Admin Acetaminophen 650 mg 08/07/19 22:03 Tylenol PO Q4H PRN Pain MILD(1-3)/Fever >100.5/THORNTON Albuterol 2.5 mg 08/07/19 22:59 Proventil IH Q4HRT PRN Shortness Of Breath Arformoterol Tartrate 15 mcg 08/08/19 08:00 08/08/19 07:41 Brovana Nebu IH 15 mcg Q12HRT MANE Administration Budesonide 0.5 mg 08/08/19 12:10 Pulmicort IH Q12HRT [facility]E Famotidine 10 mg 08/08/19 10:00 08/08/19 10:30 Pepcid PO 10 mg BID MANE Administration Heparin Sodium (Porcine) 5,000 unit 08/08/19 10:00 08/08/19 10:30 Heparin SUB-Q 5,000 unit Q12HR [facility] Administration Hydromorphone HCl 0.5 mg 08/07/19 22:03 Dilaudid IV Q3H PRN Pain , Severe (7-10) Levofloxacin/Dextrose 500 mg in 100 mls @ 100 mls/hr 08/10/19 10:00 Levaquin 500mg/100ml IV Q48HR [facility] Methylprednisolone Sodium Succinate 40 mg 08/08/19 08:00 08/08/19 10:30 Solu-Medrol IV 40 mg Q8HR [facility] Administration Mirtazapine 30 mg 08/07/19 22:06 Remeron PO QHS PRN Insomnia Ondansetron HCl 4 mg 08/07/19 22:03 Zofran IV Q8H PRN Nausea And Vomiting Oxycodone/Acetaminophen 1 tab 08/07/19 22:03 Percocet 5/325 PO Q6H PRN Pain, Moderate (4-6) Polyethylene Glycol 17 gm 08/07/19 23:49 Miralax 3350 PO QDAY PRN Constipation Sodium Chloride 10 ml 08/08/19 10:00 Sodium Chloride Flush Syringe 10 Ml IV BID [facility] Sodium Chloride 10 ml 08/07/19 22:03 08/08/19 10:31 Sodium Chloride Flush Syringe 10 Ml IV 10 ml PRN PRN Administration LINE FLUSH
[2019-08-08] MEDS: IPRATROPIUM/ALBUTEROL SULFATE 3 ML AMPUL.NEB IH SCH ×2 (13:28→20:25)
[2019-08-08] MEDS: BUDESONIDE 0.5 MG/2 ML NEBU IH SCH ×2 (13:29→20:21)
[2019-08-09] MEDS: IPRATROPIUM/ALBUTEROL SULFATE 3 ML AMPUL.NEB IH SCH ×3 (02:52→13:36)
[2019-08-09] MEDS ORDERED: FLEET ENEMA PR ONE (06:26)
[2019-08-09] MEDS: methylPREDNISolone Sod Succinate 40 MG/1 ML INJ IV SCH (06:37)
[2019-08-09 07:37] LABS: Calcium 9.2 mg/dL (8.4-10.2)
[2019-08-09] MEDS: FAMOTIDINE 10 MG TAB PO SCH (09:13)
--- NOTE | 2019-08-09 09:13 | Discharge Summary ---
Providers - Providers Date of Admission: 08/08/19 13:46 Date of discharge: 08/09/19 Attending physician: DONAL PARMAR MD 08/08/19 07:29 Consult to Physician [CONS] Routine Comment: Consulting Provider: SHRUTI PAGE Physician Instructions: Reason For Exam: chest pain Primary care physician: CRIBBER Hospitalization Reason for admission: Chest pain, COPD exacerbation Condition: Stable Hospital course: 79-year-old -[place] female patient with history of COPD, CHF, renal failure, hypertension, A. fib, [place], and CVA presents to the ED with complaints of worsening shortness of breath 2 weeks and intermittent chest pain 1 week. Patient follows with Dr. 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 She states her symptoms seemed to have improved and then worsened. She states chest pain suddenly worsened today and feels like an elephant on her chest. Pain is left-sided in an 8 out of 10 in severity. Patient is chronically on 3 L of home oxygen. She denies new or worsening cough. Patient admitted to the floor and was managed for COPD exacerbation. Cardiology was consulted and patient had recent work up including cardiac cath and recommend no further cardiac w/u needed. Patient's symptoms improved and discharged home. patient is on home oxygen. Patient was hemodynamically stable at the time of discharge. Disposition: - TO HOME OR SELFCARE Time spent for discharge: 32 minutes - Discharge Diagnoses (1) Chest pain Status: Acute (2) Abdominal pain Status: Acute (3) Acute and chronic respiratory failure Status: Acute Qualifiers: Respiratory failure complication: hypoxia Qualified Code(s): J96.21 - Acute and chronic respiratory failure with hypoxia (4) COPD with exacerbation Status: Acute Core Measure Documentation - Palliative Care Palliative Care/ Comfort Measures: Not Applicable - Core Measures Any of the following diagnoses?: none Exam - Physical Exam Narrative exam: Not in cardiopulmonary distress. The patient appeared well nourished and normally developed. Vital signs as documented. Head exam is unremarkable. No scleral icterus . Neck is without jugular venous distension, thyromegaly, or carotid bruits. Lungs decreased air entry on the bibasilar area. Cardiac exam reveals regular rate and Rhythm. First and second heart sounds normal. No murmurs, rubs or gallops. Abdominal exam reveals normal bowel sounds, no masses, no organomegaly and no aortic enlargement. Extremities are nonedematous and both femoral and pedal pulses are normal. GUIDE CRUISE: Alert and oriented 3. No focal weakness. - Constitutional Vitals: Temp Pulse Resp BP Pulse Ox 98.5 F 94 H 16 149/59 98 08/09/19 08:19 08/09/19 08:19 08/09/19 08:19 08/09/19 08:19 08/09/19 08:19 Plan Activity: no restrictions Weight Bearing Status: Full Weight Bearing Diet: low salt Follow up with: PRIMARY CAREMD [Primary Care Provider] - 3-5 Days GABY WILD MD [Staff Physician] - 14 Days (please f/u if no established PCP.) Prescriptions: Prednisone [predniSONE 10 mg (6-Day Pack, 21 Tabs)] 10 mg PO .TAPER #1 tab.ds.pk
[2019-08-09] MEDS: HEPARIN 5,000 UNIT/1 ML VIAL SUB-Q SCH (09:15)
[2019-08-09] MEDS: ARFORMOTEROL 15 MCG/2 ML NEBU IH SCH (09:52)
[2019-08-09] MEDS: BUDESONIDE 0.5 MG/2 ML NEBU IH SCH (09:53)
--- NOTE | 2019-08-09 10:42 | Progress Note ---
Assessment and Plan COPD exacerbation Reason for admission CXR showing NAP Hx of sick sinus syndrome s/p pacemaker Chronic Kidney disease Hypertension RBBB, chronic Normal LVEF 55-65% by echo 10/2018. Normal stress thallium test 09/2018. Normal coronaries by [facility] in 2008. Conservative cardiac management. No need for stress testing Subjective Date of service: 08/09/19 Principal diagnosis: shortness of breath Interval history: No events overnight Objective Vital Signs Temp Pulse Pulse Pulse Resp Resp Resp 08/09/19 08:19 98.5 F 94 H 16 08/09/19 04:27 98.1 F 97 H 18 08/09/19 03:24 86 08/08/19 23:59 98.2 F 86 18 08/08/19 20:27 99 H 104 H 18 20 08/08/19 20:00 79 08/08/19 19:15 98.0 F 103 H 20 08/08/19 12:33 98 H 18 08/08/19 12:25 98.0 F 18 08/08/19 12:24 08/08/19 12:23 84 BP BP Pulse Ox 08/09/19 08:19 149/59 98 08/09/19 04:27 136/60 98 08/09/19 03:24 08/08/19 23:59 133/74 99 08/08/19 20:27 08/08/19 20:00 08/08/19 19:15 119/63 97 08/08/19 12:33 08/08/19 12:25 154/83 08/08/19 12:24 97 08/08/19 12:23 - Physical Examination Narrative exam: General appearance: no acute distress HEENT: Normocephalic Neck: Carotids 2+ Cardiac: S1 and S2 heard no murmur noted Lungs: normal breath sounds Abd: soft Neuro: Grossly Intact Extremities: No edema noted HEENT: Positive: PERRL Neck: Positive: neck supple Neuro: Positive: Grossly Intact Abdomen: Positive: Soft Extremities: Absent: edema - Labs and Meds Comprehensive Metabolic Panel 08/09/19 Range/Units 06:50 Sodium 147 H (137-145) mmol/L Potassium 4.9 (3.6-5.0) mmol/L Chloride 105.2 (98-107) mmol/L Carbon Dioxide 28 (22-30) mmol/L BUN 28 H (7-17) mg/dL Creatinine 2.3 H (0.7-1.2) mg/dL Glucose 118 H (65-100) mg/dL Calcium 9.2 (8.4-10.2) mg/dL
[2019-08-09 13:05] VITALS: BP 133/91
[2019-08-10 03:59] LABS: % Iron Saturation 30.67 %
== END 2019-08-09 14:26 | disposition home or self-care (01) | DRG 189 ==
LOC: ED 13:27 → 4A 18:50 → OBSVTOIN 08-08 13:46
PROVIDERS: ADMIT Internal Medicine; ATTEND Internal Medicine
DX: J96.21 Acute and chronic respiratory failure with hypoxia (principal); J44.1 Chronic obstructive pulmonary disease with (acute) exacerbation; I13.0 Hypertensive heart and chronic kidney disease with heart failure and stage 1 through stage 4 chronic kidney disease, or unspecified chronic kidney disease; R07.9 Chest pain, unspecified; I50.9 Heart failure, unspecified; I48.91 Unspecified atrial fibrillation; N18.9 Chronic kidney disease, unspecified; I45.10 Unspecified right bundle-branch block; I25.2 Old myocardial infarction; Z86.73 Personal history of transient ischemic attack (TIA), and cerebral infarction without residual deficits; Z79.51 Long term (current) use of inhaled steroids; Z79.899 Other long term (current) drug therapy; Z88.0 Allergy status to penicillin; Z88.2 Allergy status to sulfonamides; Z88.8 Allergy status to other drugs, medicaments and biological substances; Z90.710 Acquired absence of both cervix and uterus; Z98.42 Cataract extraction status, left eye; Z98.41 Cataract extraction status, right eye; Z95.0 Presence of cardiac pacemaker
CPT/HCPCS: 36415; 71045; 80048; 80053; 82607; 82747; 82962; 83036; 83550; 83880; 84484; 85025; 85379; 93005; 93010; 94640; 94644; 94760; 96365; 96375; G0378; J1644; J1956; J2270; J2785; J2920

== ENCOUNTER 2019-10-07 13:38 | Inpatient (IN) | payer MEDICARE ==
[2019-10-07] MEDS ORDERED: ONDANSETRON 4 MG/2 ML INJ IV ONE (14:16)
[2019-10-07] MEDS ORDERED: MORPHINE 4 MG/1 ML INJ IV ONE (14:16)
[2019-10-07] MEDS ORDERED: ALBUTEROL 2.5 MG/3 ML NEBU IH ONE ×2 (14:16→17:30)
[2019-10-07] MEDS ORDERED: IPRATROPIUM 0.02% NEBU 2.5 ML IH ONE ×2 (14:16→17:30)
--- NOTE | 2019-10-07 14:20 | Emergency Department Report ---
ED Shortness of Breath HPI - General Chief Complaint: Headache Stated Complaint: SHORTNESS OF BREATH Time Seen by Provider: 10/07/19 14:10 Source: patient, EMS Mode of arrival: Stretcher Limitations: No Limitations - History of Present Illness Initial Comments: Patient is 79 years old female with history of COPD and CHF. Patient presented to the ER complaining of shortness of breath and difficulty breathing since last night. Patient also complaining of headache, throbbing in nature. Patient denied any chest pain, fever or chills. Patient also denied any neck pain, weakness numbness or tingling sensation. EMS stated that patient initial oxygen saturation was 84% on 2 L. MD Complaint: shortness of breath -: Last night Improves With: nothing Worsens With: lying flat Known History Of: COPD, congestive heart failure Context: recent URI - Related Data Previous Rx's Medication Instructions Recorded Last Taken Type ALBUTEROL Inhaler(NF) [VENTOLIN 2 puff IH Q4H PRN #1 inha 11/01/18 08/07/19 Rx Inhaler(NF)] Acetaminophen [Acetaminophen TAB] 325 mg PO Q4H PRN #10 tablet 11/01/18 08/07/19 Rx Budesonide/Formoterol Fumarate 2 puff IH DAILY #1 hfa.aer.ad 11/01/18 08/07/19 Rx [Symbicort 160-4.5 Mcg Inhaler] Famotidine [Pepcid] 20 mg PO DAILY #30 tablet 11/01/18 08/07/19 Rx Ipratropium/Albuterol Sulfate 1 ampul IH TIDRT PRN #30 ampul.neb 11/01/18 08/07/19 Rx [DUONEB *Not for PRN Use*] Mirtazapine [Remeron 30mg TAB] 30 mg PO QHS PRN #30 tablet 11/01/18 08/07/19 Rx Prednisone [predniSONE 10 mg 10 mg PO .TAPER #1 tab.ds.pk 08/09/19 Unknown Rx (6-Day Pack, 21 Tabs)] Allergies Allergy/AdvReac Type Severity Reaction Status Date / Time aspirin Allergy Hives Verified 03/15/18 13:11 Penicillins Allergy Hives Verified 03/15/18 13:11 Sulfa (Sulfonamide Allergy Hives Verified 03/15/18 13:11 Antibiotics) ED Review of Systems ROS: Stated complaint: SHORTNESS OF BREATH Other details as noted in HPI Comment: All other systems reviewed and negative Constitutional: denies: chills, fever Respiratory: cough, orthopnea, shortness of breath, SOB with exertion, SOB at rest, wheezing Cardiovascular: denies: chest pain, palpitations Gastrointestinal: denies: abdominal pain, nausea, vomiting Musculoskeletal: denies: back pain Neurological: headache. denies: weakness, numbness, paresthesias, confusion, abnormal gait ED Past Medical Hx - Past Medical History Previous Medical History?: Yes Hx Hypertension: Yes Hx CVA: Yes (x 2) Hx Heart Attack/AMI: No Hx Congestive Heart Failure: Yes Hx Diabetes: No Hx Deep Vein Thrombosis: No Hx Pulmonary Embolism: No Hx Renal Disease: Yes Hx Arthritis: Yes Hx Kidney Stones: No Hx Asthma: No Hx COPD: Yes Hx Tuberculosis: No Hx HIV: No Additional medical history: Chronic Bronchitis - Surgical History Past Surgical History?: Yes Hx Coronary Stent: No Hx Open Heart Surgery: Yes Hx Pacemaker: Yes Hx Internal Defibrillator: No Hx Cholecystectomy: No Hx Appendectomy: No Hx Breast Surgery: No Additional Surgical History: Right Knee Surgery , demand pacemaker (90's). Hyst. cataract removal in both eyes, - Social History Smoking Status: Former Smoker Substance Use Type: None - Medications Home Medications: Home Medications Medication Instructions Recorded Confirmed Last Taken Type ALBUTEROL Inhaler(NF) [VENTOLIN 2 puff IH Q4H PRN #1 inha 11/01/18 08/07/19 08/07/19 Rx Inhaler(NF)] Acetaminophen [Acetaminophen TAB] 325 mg PO Q4H PRN #10 tablet 11/01/18 08/07/19 08/07/19 Rx Budesonide/Formoterol Fumarate 2 puff IH DAILY #1 hfa.aer.ad 11/01/18 08/07/19 08/07/19 Rx [Symbicort 160-4.5 Mcg Inhaler] Famotidine [Pepcid] 20 mg PO DAILY #30 tablet 11/01/18 08/07/19 08/07/19 Rx Ipratropium/Albuterol Sulfate 1 ampul IH TIDRT PRN #30 ampul.neb 11/01/18 08/07/19 08/07/19 Rx [DUONEB *Not for PRN Use*] Mirtazapine [Remeron 30mg TAB] 30 mg PO QHS PRN #30 tablet 11/01/18 08/07/19 08/07/19 Rx Prednisone [predniSONE 10 mg 10 mg PO .TAPER #1 tab.ds.pk 08/09/19 Unknown Rx (6-Day Pack, 21 Tabs)] ED Physical Exam - General Limitations: No Limitations General appearance: alert, in distress (moderate respiratory distress) - Head Head exam: Present: atraumatic, normocephalic, normal inspection - Eye Eye exam: Present: normal appearance - ENT ENT exam: Present: normal exam, normal orophraynx, mucous membranes moist - Neck Neck exam: Present: normal inspection, full ROM. Absent: tenderness, meningismus, lymphadenopathy, thyromegaly - Respiratory Respiratory exam: Present: respiratory distress, wheezes, rales, rhonchi, prolonged expiratory. Absent: stridor, accessory muscle use, decreased breath sounds - Cardiovascular Cardiovascular Exam: Present: regular rate, normal rhythm, normal heart sounds - GI/Abdominal GI/Abdominal exam: Present: soft, normal bowel sounds. Absent: distended, tenderness, guarding, rebound, rigid, organomegaly, mass, bruit, pulsatile mass, hernia - Extremities Exam Extremities exam: Present: normal inspection, full ROM, normal capillary refill. Absent: pedal edema, calf tenderness - Back Exam Back exam: Present: normal inspection, full ROM. Absent: CVA tenderness (R), CVA tenderness (L) - Neurological Exam Neurological exam: Present: alert, oriented X3, CN II-XII intact. Absent: motor sensory deficit - Skin Skin exam: Present: warm, intact, normal color ED Course Vital Signs 10/07/19 10/07/19 10/07/19 13:57 13:59 14:00 Temperature 98.6 F Pulse Rate 88 90 Pulse Rate [ Anterior Bilateral Throughout] Pulse Rate [ Anterior Bilateral] Respiratory 23 28 H Rate Respiratory Rate [Anterior Bilateral Throughout] Respiratory Rate [Anterior Bilateral] Blood Pressure 161/85 O2 Sat by Pulse 100 Oximetry 10/07/19 10/07/19 10/07/19 14:15 14:31 14:45 Temperature Pulse Rate 92 H 88 84 Pulse Rate [ Anterior Bilateral Throughout] Pulse Rate [ Anterior Bilateral] Respiratory 11 L 14 20 Rate Respiratory Rate [Anterior Bilateral Throughout] Respiratory Rate [Anterior Bilateral] Blood Pressure 161/85 161/85 161/85 O2 Sat by Pulse 96 94 96 Oximetry 10/07/19 10/07/19 10/07/19 15:01 15:02 15:15 Temperature Pulse Rate 87 89 Pulse Rate [ 83 Anterior Bilateral Throughout] Pulse Rate [ 81 Anterior Bilateral] Respiratory 13 22 Rate Respiratory 16 Rate [Anterior Bilateral Throughout] Respiratory 16 Rate [Anterior Bilateral] Blood Pressure 161/85 161/85 O2 Sat by Pulse 96 87 Oximetry 10/07/19 10/07/19 10/07/19 15:31 15:45 16:01 Temperature Pulse Rate 92 H 85 95 H Pulse Rate [ Anterior Bilateral Throughout] Pulse Rate [ Anterior Bilateral] Respiratory 15 22 15 Rate Respiratory Rate [Anterior Bilateral Throughout] Respiratory Rate [Anterior Bilateral] Blood Pressure 161/85 161/85 161/85 O2 Sat by Pulse 88 94 94 Oximetry 10/07/19 10/07/19 16:15 16:31 Temperature Pulse Rate 94 H 93 H Pulse Rate [ Anterior Bilateral Throughout] Pulse Rate [ Anterior Bilateral] Respiratory 14 13 Rate Respiratory Rate [Anterior Bilateral Throughout] Respiratory Rate [Anterior Bilateral] Blood Pressure 161/85 161/85 O2 Sat by Pulse 97 Oximetry ED Medical Decision Making - Lab Data Result diagrams: 10/07/19 14:39 10/07/19 14:39 - EKG Data -: EKG Interpreted by Me EKG shows normal: sinus rhythm - Radiology Data Radiology results: report reviewed - Medical Decision Making Patient is 79 years old female with history of COPD and CHF. Patient presented to the ER complaining of shortness of breath and difficulty breathing since last night. Patient also complaining of headache, throbbing in nature. Patient denied any chest pain, fever or chills. Patient also denied any neck pain, weakness numbness or tingling sensation. EMS stated that patient initial oxygen saturation was 84% on 2 L. Patient received albuterol, Atrovent, Solu-Medrol morphine and Zofran. Patient stated the symptoms improved a little bit but not much. Patient given number dose of albuterol and Atrovent. Patient will to be admitted for further treatment. I discussed the patient was Dr. Smith, he agreed to admit the patient to medical service for further management. Critical Care Time: Yes Critical care time in (mins) excluding proc time.: 30 Critical care attestation.: If time is entered above; I have spent that time in minutes in the direct care of this critically ill patient, excluding procedure time. ED Disposition Clinical Impression: COPD exacerbation, Headache Disposition: 09 OP ADMIT IP TO THIS HOSP Is pt being admited?: Yes Condition: Stable Instructions: Chronic Bronchitis (ED)
--- NOTE | 2019-10-07 14:43 | XRay Report ---
CHEST 1 VIEW INDICATION: Dyspnea COMPARISON: 04/09/2019 FINDINGS: Support devices: Bipolar pacemaker on the left, unchanged. Heart: Normal and unchanged. Lungs/Pleura: No acute pulmonary or pleural findings. IMPRESSION: 1. No active disease and no interval change. Signer Name: Lennox Woods MD Signed: 10/07/2019 2:39 PM Workstation Name: [id number]
[2019-10-07 14:54] LABS: Hematocrit 30.3 % (30.3-42.9); Hemoglobin 9.7 gm/dl (10.1-14.3); Mean Corpuscular HGB Conc 32 % (30-34); Mean Corpuscular Volume 87 fl (79-97); Platelet Count 168 K/mm3 (140-440); Red Blood Count 3.47 M/mm3 (3.65-5.03); Red Cell Distribution Width 14.9 % (13.2-15.2)
[2019-10-07 15:01] LABS: INR 0.93 (0.87-1.13)
[2019-10-07 15:02] LABS: Partial Thromboplastin Time 27.7 Sec. (24.2-36.6)
[2019-10-07 15:22] LABS: Alanine Aminotransferase 9 units/L (7-56); Albumin 3.9 g/dL (3.9-5); BUN/Creatinine Ratio 9; Blood Urea Nitrogen 18 mg/dL (7-17); Calcium 8.9 mg/dL (8.4-10.2); Hemolysis Index 29
--- NOTE | 2019-10-07 17:24 | Cat Scan Report ---
CT head without contrast HISTORY: MAIN: headache . TECHNIQUE: Axial imaging performed from the skull apex through the skull base without the use of con trast. All CT scans at this location are performed using CT dose reduction for ALARA by means of aut omated exposure control. COMPARISON: CT head from 08/07/2017 FINDINGS: Parenchyma: No acute intracranial hemorrhage or parenchymal abnormality. Ventricles: There is mild diffuse brain atrophy with commensurate ventricular enlargement which is l ikely age appropriate. Soft tissues: Soft tissues including the orbits appear normal. Bones: No acute osseous abnormality. Sinuses: Sinuses and mastoid air cells are clear. IMPRESSION: No acute abnormality. Signer Name: Rory Valero MD Signed: 10/07/2019 5:20 PM Workstation Name: [id number]
[2019-10-07] MEDS ORDERED: methylPREDNISolone Sod Succinate 125 MG/2 ML INJ IV ONE (17:29)
--- NOTE | 2019-10-07 17:56 | History and Physical Report ---
History of Present Illness Chief complaint: I cant breathe History of present illness: 79 YO Female with HTN, CVA, AR, OA, Asthma, COPD on 3L Home Oxygen, CAD, CHF, presents to ED for evaluation. Pt states that she has experienced shortness of breath for the past 2 days with worsening symptoms over the past 1 day. Pt a cknowledges increased productive cough of clear sputum with increased sputum production. Pt symptoms not relieved with increased oxygen, and increased nebulizer therapy. Pt also complains of a headache for the past 1 week with worsening symptoms over the past 3 days. EMS notified, and upon arrival the patient was found to be in distress and transported to [facility]. Pt seen and evaluated in ED and found to have NELIDA, Acute on Chronic Respiratory Failure complicated by COPD Exacerbation. Pt is using accessory muscles to breathe, and is unable to speak in complete sentences. Pt is slumped over in bed and is unable to recline due to shortness of breath. Pt states that the headache pain is 2/10, throbbing in nature, intermittent. Pt denies vision changes, or sudden vision loss in either eye, trauma, BRBPR, Syncope, Lacrimation, loss of bowel/bladder continence, vomiting, fall, vertigo, recent ill contacts, or skin rashes. Pt admitted to [facility] unit and treated with supportive care. Prior admission on 08/08/19 reviewed. All listed medication reconciled at time of admission. Past History Past Medical History: other (see hpi) Past Surgical History: cataract removal, hysterectomy Medications and Allergies Allergies Allergy/AdvReac Type Severity Reaction Status Date / Time aspirin Allergy Hives Verified 03/15/18 13:11 Penicillins Allergy Hives Verified 03/15/18 13:11 Sulfa (Sulfonamide Allergy Hives Verified 03/15/18 13:11 Antibiotics) Home Medications Medication Instructions Recorded Confirmed Last Taken Type ALBUTEROL Inhaler(NF) [VENTOLIN 2 puff IH Q4H PRN #1 inha 11/01/18 10/07/19 08/07/19 Rx Inhaler(NF)] Acetaminophen [Acetaminophen TAB] 325 mg PO Q4H PRN #10 tablet 11/01/18 10/07/19 08/07/19 Rx Budesonide/Formoterol Fumarate 2 puff IH DAILY #1 hfa.aer.ad 11/01/18 10/07/19 08/07/19 Rx [Symbicort 160-4.5 Mcg Inhaler] Famotidine [Pepcid] 20 mg PO DAILY #30 tablet 11/01/18 10/07/19 08/07/19 Rx Ipratropium/Albuterol Sulfate 1 ampul IH TIDRT PRN #30 ampul.neb 11/01/18 10/07/19 08/07/19 Rx [DUONEB *Not for PRN Use*] Mirtazapine [Remeron 30mg TAB] 30 mg PO QHS PRN #30 tablet 11/01/18 10/07/19 08/07/19 Rx Prednisone [predniSONE 10 mg 10 mg PO .TAPER #1 tab.ds.pk 08/09/19 10/07/19 Unknown Rx (6-Day Pack, 21 Tabs)] Review of Systems Constitutional: no weight loss, no weight gain, no fever, no chills Ears, nose, mouth and throat: no ear pain, no ear discharge, no tinnitis, no nose pain, no nasal congestion Cardiovascular: no chest pain, no orthopnea, no palpitations, no rapid/irregular heart beat Respiratory: cough, cough with sputum, excessive sputum, shortness of breath, no wheezing, no pleurisy, no pain Gastrointestinal: no abdominal pain, no nausea, no vomiting, no diarrhea, no constipation Genitourinary Female: no pelvic pain, no flank pain, no menorrhagia, no dysuria, no urinary frequency, no urgency Rectal: no pain, no incontinence, no bleeding Musculoskeletal: no neck stiffness, no shooting arm pain, no low back pain, no shooting leg pain, no leg numbness/tingling Integumentary: no rash, no redness, no sores, no wounds Neurological: no paralysis, no parathesias, no tingling, no syncope Psychiatric: no memory loss, no change in sleep habits, no change in appetite Endocrine: no heat intolerance, no polyphagia, no excessive thirst, no deepening of the voice, no thyroid mass Hematologic/Lymphatic: no easy bruising, no lymphadenopathy, no lymphedema Allergic/Immunologic: no urticaria, no wheezing Exam - Constitutional Vitals: Temp Pulse Resp BP Pulse Ox 98.6 F 93 H 13 161/85 97 10/07/19 13:59 10/07/19 16:31 10/07/19 16:31 10/07/19 16:31 10/07/19 16:15 General appearance: Present: mild distress - EENT Eyes: Present: PERRL ENT: hearing intact, clear oral mucosa - Neck Neck: Present: supple, normal ROM - Respiratory Respiratory effort: normal Respiratory: left: diminished, rhonchi - Cardiovascular Heart Sounds: Present: S1 & S2. Absent: rub, click - Extremities Extremities: pulses symmetrical, No edema Peripheral Pulses: within normal limits - Abdominal General gastrointestinal: Present: soft, non-tender, non-distended, normal bowel sounds Female genitourinary: Present: normal - Integumentary Integumentary: Present: clear, warm, dry - Musculoskeletal Musculoskeletal: generalized weakness - Psychiatric Psychiatric: appropriate mood/affect, intact judgment & insight, agitated - Neurologic Neurologic: CNII-XII intact, moves all extremities, no gait normal Results - Labs CBC & Chem 7: 10/07/19 14:39 10/07/19 14:39 Labs: Abnormal lab results 10/07/19 10/07/19 Range/Units 14:39 14:39 WBC 3.7 L (4.5-11.0) K/mm3 RBC 3.47 L (3.65-5.03) M/mm3 Hgb 9.7 L (10.1-14.3) gm/dl Potassium 5.1 H (3.6-5.0) mmol/L BUN 18 H (7-17) mg/dL Creatinine 2.0 H (0.7-1.2) mg/dL Assessment and Plan - Patient Problems (1) Acute and chronic respiratory failure Current Visit: Yes Status: Acute Qualifiers: Respiratory failure complication: hypoxia Qualified Code(s): J96.21 - Acute and chronic respiratory failure with hypoxia Plan to address problem: supplemental oxygen, nebulizer therapy, ABG, pulse oximetry, NIPPV as clinically indicated, chest x ray, (2) NELIDA (acute kidney injury) Current Visit: Yes Status: Acute Plan to address problem: monitor uop q shift, repeat bmp in am, ivf resuscitation therapy as tolerated, nephrology consulted in ED. (3) COPD exacerbation Current Visit: Yes Status: Acute Plan to address problem: supplemental oxygen, empiric antibiotic therapy, chest x ray, NIPPV as clinically indicated, nebulizer therapy, IV steroid therapy, (4) HTN (hypertension) Current Visit: Yes Status: Acute Qualifiers: Hypertension type: essential hypertension Qualified Code(s): I10 - Essential (primary) hypertension Plan to address problem: monitor bp q shift, continue medical management. (5) CAD (coronary artery disease) Current Visit: No Status: Chronic Qualifiers: Coronary Disease-Associated Artery/Lesion type: [place] artery [place] vs. transplanted heart: [place] heart Associated angina: with unspecified angina Qualified Code(s): I25.119 - Atherosclerotic heart disease of [place] coronary artery with unspecified angina pectoris Plan to address problem: Risk factor reduction therapy, low fat/low cholesterol diet, supportive care, antiplatelet therapy (6) Osteoarthritis Current Visit: Yes Status: Acute Qualifiers: Laterality: unspecified laterality Plan to address problem: pain control, supportive care. (7) DVT prophylaxis Current Visit: No Status: Acute Plan to address problem: SCD to BLE while in bed, prophylactic heparin
[2019-10-07] MEDS ORDERED: ONDANSETRON 4 MG/2 ML INJ IV PRN (18:00)
[2019-10-07 18:35] LABS: Basophils % (Manual) 0 % (0.0-1.8); Total Cells Counted 100
[2019-10-07 18:36] LABS: Anisocytosis 1+; Large Platelets 1+; Ovalocytes Few; Platelet Estimate Consistent w Auto
[2019-10-07] MEDS: ACETAMINOPHEN 325 MG TAB PO PRN (20:09)
[2019-10-07] MEDS ORDERED: MORPHINE 2 MG/1 ML INJ IV ONE (23:22)
[2019-10-07] MEDS: HEPARIN 5,000 UNIT/1 ML VIAL SUB-Q SCH (23:36)
[2019-10-08] MEDS: IPRATROPIUM/ALBUTEROL SULFATE 3 ML AMPUL.NEB IH SCH ×4 (02:14→22:03)
[2019-10-08 05:08] LABS: Hematocrit 28.6 % (30.3-42.9); Hemoglobin 9.3 gm/dl (10.1-14.3); Mean Corpuscular HGB Conc 33 % (30-34); Mean Corpuscular Volume 87 fl (79-97); Platelet Count 154 K/mm3 (140-440); Red Blood Count 3.29 M/mm3 (3.65-5.03); Red Cell Distribution Width 14.9 % (13.2-15.2)
[2019-10-08 05:21] LABS: Alanine Aminotransferase 8 units/L (7-56); BUN/Creatinine Ratio 10; Blood Urea Nitrogen 24 mg/dL (7-17); Calcium 9.1 mg/dL (8.4-10.2); Hemolysis Index 9
[2019-10-08] MEDS: methylPREDNISolone Sod Succinate 40 MG/1 ML INJ IV SCH ×2 (05:59→23:28)
[2019-10-08 06:01] LABS: Bacteria,Urine 2+ /HPF (Negative); Bilirubin,Urine NEG (Negative); Blood,Urine SM (Negative); Color,Urine Yellow (Yellow); Mucus,Urine FEW /HPF; Protein,Urine <15 mg/dL mg/dL (Negative); Urobilinogen,Urine < 2.0 mg/dL (<2.0)
[2019-10-08 06:25] LABS: Anisocytosis 1+; Basophils % (Manual) 0 % (0.0-1.8); Platelet Estimate Consistent w Auto; Total Cells Counted 50
[2019-10-08] MEDS ORDERED: SODIUM POLYSTYRENE 15 GM/60 ML ORAL LIQD PO NR (07:22)
[2019-10-08] MEDS ORDERED: DEXTROSE 50% IN WATER (25GM) 50 ML SYRINGE IV NR (07:23)
[2019-10-08] MEDS ORDERED: INSULIN REGULAR, HUMAN 100 UNITS/1 ML IV NR (07:23)
--- NOTE | 2019-10-08 08:18 | Progress Note ---
Assessment and Plan Assessment and plan: --Severe Hyperkalemia : Current Visit: Yes Status: Acute Patient received IV insulin and dextrose, albuterol inhalation, Kayexalate Monitor potassium levels, nephrology following --Abnormal EKG; Current Visit: Yes Status: Acute tall T waves secondary to severe hyperkalemia We will check EKG again after potassium levels are normal -- NELIDA (acute kidney injury)on CKD Current Visit: Yes Status: Acute Avoid nephrotoxins, monitor renal function Nephrology consulted, renal ultrasound if needed -- Acute and chronic respiratory failure Current Visit: Yes Status: Acute Due to acute exacerbation of COPD supplemental oxygen, nebulizer therapy, ABG, pulse oximetry, NIPPV as clinically indicated, chest x ray, --COPD exacerbation Current Visit: Yes Status: Acute supplemental oxygen, empiric antibiotic therapy, Oxygen nebulizers IV steroids BiPAP as needed Consult pulmonary if needed --HTN (hypertension) Current Visit: Yes Status: Acute monitor bp q shift, continue medical management. --CAD (coronary artery disease) Current Visit: No Status: Chronic Continue current cardiac medications --Osteoarthritis Current Visit: Yes Status: Acute pain control, supportive care. -- DVT prophylaxis Current Visit: No Status: Acute SCD to BLE while in bed, prophylactic heparin Monitor closely and adjust management as needed Plan of care reviewed with the patient and her nurse Disposition; discharge home when medically stable History Interval history: Patient seen and examined medical records reviewed Admitted with acute COPD exacerbation acute on chronic kidney disease Patient had severe hyperkalemia With EKG changes Patient feels slightly better no Continues to have shortness of breath denies chest pain Vital signs reviewed Hospitalist Physical - Constitutional Vitals: Temp Pulse Resp BP Pulse Ox 98.2 F 101 H 20 139/76 94 10/08/19 07:52 10/08/19 07:52 10/08/19 07:52 10/08/19 07:52 10/08/19 07:52 General appearance: Present: mild distress - EENT Eyes: Present: PERRL, EOM intact - Neck Neck: Present: supple, normal ROM - Respiratory Respiratory effort: normal Respiratory: bilateral: diminished, rhonchi, wheezing, negative: rales - Cardiovascular Rhythm: regular Heart Sounds: Present: S1 & S2 - Extremities Extremities: no ischemia, No edema - Abdominal General gastrointestinal: soft, non-tender, non-distended, normal bowel sounds - Integumentary Integumentary: Present: clear, warm - Psychiatric Psychiatric: appropriate mood/affect, cooperative - Neurologic Neurologic: CNII-XII intact, moves all extremities Results - Labs CBC & Chem 7: 10/08/19 04:18 10/09/19 03:43 Labs: Laboratory Last Values WBC 2.0 K/mm3 (4.5-11.0) L 10/08/19 04:18 RBC 3.29 M/mm3 (3.65-5.03) L 10/08/19 04:18 Hgb 9.3 gm/dl (10.1-14.3) L 10/08/19 04:18 Hct 28.6 % (30.3-42.9) L 10/08/19 04:18 MCV 87 fl (79-97) 10/08/19 04:18 MCH 28 pg (28-32) 10/08/19 04:18 MCHC 33 % (30-34) 10/08/19 04:18 RDW 14.9 % (13.2-15.2) 10/08/19 04:18 Plt Count 154 K/mm3 (140-440) 10/08/19 04:18 Eos % (Auto) Fly Finisher 10/07/19 14:39 Add Manual Diff Complete 10/08/19 04:18 Total Counted 50 10/08/19 04:18 Seg Neuts % (Manual) 84.0 % (40.0-70.0) H 10/08/19 04:18 Band Neutrophils % 0 % 10/08/19 04:18 Lymphocytes % (Manual) 12.0 % (13.4-35.0) L 10/08/19 04:18 Reactive Lymphs % (Man) 0 % 10/08/19 04:18 Monocytes % (Manual) 2.0 % (0.0-7.3) 10/08/19 04:18 Eosinophils % (Manual) 2.0 % (0.0-4.3) 10/08/19 04:18 Basophils % (Manual) 0 % (0.0-1.8) 10/08/19 04:18 Metamyelocytes % 0 % 10/08/19 04:18 Myelocytes % 0 % 10/08/19 04:18 Promyelocytes % 0 % 10/08/19 04:18 Blast Cells % 0 % 10/08/19 04:18 Nucleated RBC % Not Reportable 10/08/19 04:18 Seg Neutrophils # Man 1.7 K/mm3 (1.8-7.7) L 10/08/19 04:18 Band Neutrophils # 0.0 K/mm3 10/08/19 04:18 Lymphocytes # (Manual) 0.2 K/mm3 (1.2-5.4) L 10/08/19 04:18 Abs React Lymphs (Man) 0.0 K/mm3 10/08/19 04:18 Monocytes # (Manual) 0.0 K/mm3 (0.0-0.8) 10/08/19 04:18 Eosinophils # (Manual) 0.0 K/mm3 (0.0-0.4) 10/08/19 04:18 Basophils # (Manual) 0.0 K/mm3 (0.0-0.1) 10/08/19 04:18 Metamyelocytes # 0.0 K/mm3 10/08/19 04:18 Myelocytes # 0.0 K/mm3 10/08/19 04:18 Promyelocytes # 0.0 K/mm3 10/08/19 04:18 Blast Cells # 0.0 K/mm3 10/08/19 04:18 WBC Morphology Not Reportable 10/08/19 04:18 Hypersegmented Neuts Not Reportable 10/08/19 04:18 Hyposegmented Neuts Not Reportable 10/08/19 04:18 Hypogranular Neuts Not Reportable 10/08/19 04:18 Smudge Cells Not Reportable 10/08/19 04:18 Toxic Granulation Not Reportable 10/08/19 04:18 Toxic Vacuolation Not Reportable 10/08/19 04:18 Dohle Bodies Not Reportable 10/08/19 04:18 Pelger-Huet Anomaly Not Reportable 10/08/19 04:18 Christopher Rods Not Reportable 10/08/19 04:18 Platelet Estimate Consistent w auto 10/08/19 04:18 Clumped Platelets Not Reportable 10/08/19 04:18 Plt Clumps, EDTA Not Reportable 10/08/19 04:18 Large Platelets Not Reportable 10/08/19 04:18 Giant Platelets Not Reportable 10/08/19 04:18 Platelet Satelliting Not Reportable 10/08/19 04:18 Plt Morphology Comment Not Reportable 10/08/19 04:18 RBC Morphology Not Reportable 10/08/19 04:18 Dimorphic RBCs Not Reportable 10/08/19 04:18 Polychromasia Not Reportable 10/08/19 04:18 Hypochromasia Not Reportable 10/08/19 04:18 Poikilocytosis Not Reportable 10/08/19 04:18 Anisocytosis 1+ 10/08/19 04:18 Microcytosis Not Reportable 10/08/19 04:18 Macrocytosis Not Reportable 10/08/19 04:18 Spherocytes Not Reportable 10/08/19 04:18 Pappenheimer Bodies Not Reportable 10/08/19 04:18 Sickle Cells Not Reportable 10/08/19 04:18 Target Cells Not Reportable 10/08/19 04:18 Tear Drop Cells Not Reportable 10/08/19 04:18 Ovalocytes Not Reportable 10/08/19 04:18 Helmet Cells Not Reportable 10/08/19 04:18 [place] Bodies Not Reportable 10/08/19 04:18 [place] Rings Not Reportable 10/08/19 04:18 Yoni Cells Not Reportable 10/08/19 04:18 Bite Cells Not Reportable 10/08/19 04:18 Crenated Cell Not Reportable 10/08/19 04:18 Elliptocytes Not Reportable 10/08/19 04:18 Acanthocytes (Spur) Not Reportable 10/08/19 04:18 Rouleaux Not Reportable 10/08/19 04:18 Hemoglobin C Crystals Not Reportable 10/08/19 04:18 Schistocytes Not Reportable 10/08/19 04:18 Malaria parasites Not Reportable 10/08/19 04:18 Andre Bodies Not Reportable 10/08/19 04:18 Hem Pathologist Commnt No 10/08/19 04:18 PT 12.4 Sec. (12.2-14.9) 10/07/19 14:39 INR 0.93 (0.87-1.13) 10/07/19 14:39 APTT 27.7 Sec. (24.2-36.6) 10/07/19 14:39 POC ABG pH 7.312 (7.35-7.45) L 10/07/19 19:14 POC ABG pCO2 65.1 (35-45) H 10/07/19 19:14 POC ABG pO2 73 (80-105) L 10/07/19 19:14 POC ABG HCO3 32.9 (22-26 mml/L) 10/07/19 19:14 POC ABG Total CO2 35 (23-27mmol/L) 10/07/19 19:14 POC ABG O2 Sat 92 10/07/19 19:14 POC ABG Base Excess 7 ((-2) - (+3)mmol/L) 10/07/19 19:14 FiO2 36 % 10/07/19 19:14 Sodium 146 mmol/L (137-145) H 10/08/19 04:18 Potassium 6.2 mmol/L (3.6-5.0) H* 10/08/19 06:32 Chloride 106.0 mmol/L (98-107) 10/08/19 04:18 Carbon Dioxide 31 mmol/L (22-30) H 10/08/19 04:18 Anion Gap 16 mmol/L 10/08/19 04:18 BUN 24 mg/dL (7-17) H 10/08/19 04:18 Creatinine 2.3 mg/dL (0.7-1.2) H 10/08/19 04:18 Estimated GFR 25 ml/min 10/08/19 04:18 BUN/Creatinine Ratio 10 % 10/08/19 04:18 Glucose 138 mg/dL (65-100) H 10/08/19 04:18 Calcium 9.1 mg/dL (8.4-10.2) 10/08/19 04:18 Total Bilirubin < 0.20 mg/dL (0.1-1.2) 10/08/19 04:18 AST 14 units/L (5-40) 10/08/19 04:18 ALT 8 units/L (7-56) 10/08/19 04:18 Alkaline Phosphatase 89 units/L (35-129) 10/08/19 04:18 Troponin T < 0.010 ng/mL (0.00-0.029) 10/07/19 16:24 NT-Pro-B Natriuret Pep 395.3 pg/mL (0-900) 10/07/19 14:39 Total Protein 6.3 g/dL (6.3-8.2) 10/08/19 04:18 Albumin 4.0 g/dL (3.9-5) 10/08/19 04:18 Albumin/Globulin Ratio 1.7 % 10/08/19 04:18 Urine Color Yellow (Yellow) 10/08/19 Unknown Urine Turbidity Clear (Clear) 10/08/19 Unknown Urine pH 5.0 (5.0-7.0) 10/08/19 Unknown Ur Specific [place] 1.012 (1.003-1.030) 10/08/19 Unknown Urine Protein <15 mg/dl mg/dL (Negative) 10/08/19 Unknown Urine Glucose (UA) 50 mg/dL (Negative) 10/08/19 Unknown Urine Ketones Neg mg/dL (Negative) 10/08/19 Unknown Urine Blood Sm (Negative) 10/08/19 Unknown Urine Nitrite Neg (Negative) 10/08/19 Unknown Urine Bilirubin Neg (Negative) 10/08/19 Unknown Urine Urobilinogen < 2.0 mg/dL (<2.0) 10/08/19 Unknown Ur Leukocyte Esterase Tr (Negative) 10/08/19 Unknown Urine WBC (Auto) 6.0 /HPF (0.0-6.0) 10/08/19 Unknown Urine RBC (Auto) 12.0 /HPF (0.0-6.0) 10/08/19 Unknown U Epithel Cells (Auto) 1.0 /HPF (0-13.0) 10/08/19 Unknown Urine Bacteria (Auto) 2+ /HPF (Negative) 10/08/19 Unknown Urine Mucus Few /HPF 10/08/19 Unknown Active Medications - Current Medications Current Medications: Generic Name Dose Route Start Last Admin Trade Name Freq PRN Reason Stop Dose Admin Acetaminophen 650 mg 10/07/19 18:00 10/07/19 20:09 Tylenol PO 650 mg Q4H PRN Administration Pain MILD(1-3)/Fever >100.5/THORNTON Albuterol/Ipratropium 1 ampul 10/08/19 02:00 10/08/19 02:14 Duoneb *Not For Prn Use* IH Not Given Q6HRT MANE Dextrose 50 ml 10/08/19 07:23 10/08/19 07:44 D50w (25gm) Syringe IV 10/08/19 10:00 50 ml ONCE NR Administration Protocol Heparin Sodium (Porcine) 5,000 unit 10/07/19 22:00 10/07/19 23:36 Heparin SUB-Q 5,000 unit Q12HR MANE Administration Insulin Human Regular 10 units 10/08/19 07:23 10/08/19 07:52 Humulin R IV 10/08/19 10:00 10 units ONCE NR Administration Methylprednisolone Sodium Succinate 40 mg 10/08/19 06:00 10/08/19 05:59 Solu-Medrol IV 40 mg Q12H MANE Administration Ondansetron HCl 4 mg 10/07/19 18:00 Zofran IV Q8H PRN Nausea And Vomiting Sodium Chloride 10 ml 10/07/19 22:00 10/07/19 23:37 Sodium Chloride Flush Syringe 10 Ml IV 10 ml BID MANE Administration Sodium Chloride 10 ml 10/07/19 18:00 Sodium Chloride Flush Syringe 10 Ml IV PRN PRN LINE FLUSH Sodium Polystyrene Sulfonate 30 gm 10/08/19 07:22 10/08/19 07:44 Kionex PO 10/08/19 10:00 30 gm ONCE NR Administration
[2019-10-08] MEDS ORDERED: ALBUTEROL 8.5 GM INHALATION IH PRN (08:23)
[2019-10-08] MEDS: HEPARIN 5,000 UNIT/1 ML VIAL SUB-Q SCH ×2 (09:26→21:39)
--- NOTE | 2019-10-08 09:57 | Consultation ---
History of Present Illness - Reason for Consult Consult date: 10/08/19 chronic renal failure, hyperkalemia - History of Present Illness The patient is 79 YO female who is well known to our service with history significant for HTN, Diastolic CHF, COPD on home O2, SSS s/p PPM, Anemia and CKD stage 4 who presented to [facility] ED with complaining of sob for 2 days. Pt acknowledges increased productive cough of clear sputum. Patient was found to be in respiratory distress. She was admitted for treatment of Acute on Chronic Respiratory Failure complicated by COPD Exacerbation. Pt denies cp, N, V, D, abd pain, dysuria, hematuria, rash, dizziness, Syncope or skin rash. Labs significant for K 6.7 and creatinine 2.3. Nephrology was consulted for elevated creatinine. Past History Past Medical History: COPD, heart failure, hypertension, renal failure, other (see hpi) Past Surgical History: cataract removal, hysterectomy Medications and Allergies Allergies Allergy/AdvReac Type Severity Reaction Status Date / Time aspirin Allergy Hives Verified 03/15/18 13:11 Penicillins Allergy Hives Verified 03/15/18 13:11 Sulfa (Sulfonamide Allergy Hives Verified 03/15/18 13:11 Antibiotics) Home Medications Medication Instructions Recorded Confirmed Last Taken Type ALBUTEROL Inhaler(NF) [VENTOLIN 2 puff IH Q4H PRN #1 inha 11/01/18 10/07/19 08/07/19 Rx Inhaler(NF)] Acetaminophen [Acetaminophen TAB] 325 mg PO Q4H PRN #10 tablet 11/01/18 10/07/19 08/07/19 Rx Budesonide/Formoterol Fumarate 2 puff IH DAILY #1 hfa.aer.ad 11/01/18 10/07/19 08/07/19 Rx [Symbicort 160-4.5 Mcg Inhaler] Famotidine [Pepcid] 20 mg PO DAILY #30 tablet 11/01/18 10/07/19 08/07/19 Rx Ipratropium/Albuterol Sulfate 1 ampul IH TIDRT PRN #30 ampul.neb 11/01/18 10/07/19 08/07/19 Rx [DUONEB *Not for PRN Use*] Mirtazapine [Remeron 30mg TAB] 30 mg PO QHS PRN #30 tablet 01/02/1410/07/19 08/07/19 Rx Prednisone [predniSONE 10 mg 10 mg PO .TAPER #1 tab.ds.pk 08/09/19 10/07/19 Unknown Rx (6-Day Pack, 21 Tabs)] Active Meds: Active Medications Acetaminophen (Tylenol) 650 mg PO Q4H PRN PRN Reason: Pain MILD(1-3)/Fever >100.5/THORNTON Last Admin: 10/07/19 20:09 Dose: 650 mg Documented by: Albuterol (Proair) 2 puff IH Q4H PRN PRN Reason: Shortness Of Breath Albuterol/Ipratropium (Duoneb *Not For Prn Use*) 1 ampul IH Q6HRT [facility] Last Admin: 10/08/19 02:14 Dose: Not Given Documented by: Dextrose (D50w (25gm) Syringe) 50 ml IV ONCE NR; Protocol Stop: 10/08/19 10:00 Last Admin: 10/08/19 07:44 Dose: 50 ml Documented by: Heparin Sodium (Porcine) (Heparin) 5,000 unit SUB-Q Q12HR [facility] Last Admin: 10/08/19 09:26 Dose: 5,000 unit Documented by: Insulin Human Regular (Humulin R) 10 units IV ONCE NR Stop: 10/08/19 10:00 Last Admin: 10/08/19 07:52 Dose: 10 units Documented by: Methylprednisolone Sodium Succinate (Solu-Medrol) 40 mg IV Q12H [facility] Last Admin: 10/08/19 05:59 Dose: 40 mg Documented by: Miscellaneous Medication (Budesonide/Formoterol Fumarate [Symbicort 160-4.5 Mcg Inhaler]) 2 puff IH DAILY [facility] Ondansetron HCl (Zofran) 4 mg IV Q8H PRN PRN Reason: Nausea And Vomiting Sodium Chloride (Sodium Chloride Flush Syringe 10 Ml) 10 ml IV BID [facility] Last Admin: 10/08/19 09:26 Dose: 10 ml Documented by: Sodium Chloride (Sodium Chloride Flush Syringe 10 Ml) 10 ml IV PRN PRN PRN Reason: LINE FLUSH Sodium Polystyrene Sulfonate (Kionex) 30 gm PO ONCE NR Stop: 10/08/19 10:00 Last Admin: 10/08/19 07:44 Dose: 30 gm Documented by: Review of Systems Constitutional: malaise, no weight loss, no weight gain, no fever, no chills, no anorexia, no fatigue, no weakness, no poor appetite Breasts: deferred Cardiovascular: lightheadedness, shortness of breath, high blood pressure, no chest pain, no orthopnea, no palpitations, no edema, no syncope Respiratory: cough, cough with sputum, excessive sputum, shortness of breath, dyspnea on exertion, home oxygen, no hemoptysis Gastrointestinal: no abdominal pain, no nausea, no vomiting, no diarrhea Genitourinary Female: no dysuria, no hematuria Rectal: no bleeding Musculoskeletal: no muscle weakness, no muscle cramps, no fractures Integumentary: no rash, no redness, no wounds Neurological: no paralysis, no weakness, no convulsions, no aphasia, no change in speech, no change in mentation, no confusion, no memory loss Exam - Vital Signs Vital signs: Vital Signs Pulse Ox 98 10/07/19 13:55 - General Appearance General appearance: well-developed, well-nourished, appears stated age, other (not in distress, NC O2) EENT: ATNC, PERRL, hearing intact, vision intact Neck: Present: neck supple, trachea midline Respiratory: Clear to Ascultation Heart: regular, S1S2, no murmurs Gastrointestinal: Present: normoactive bowel sounds. Absent: tenderness, distended Integumentary: no rash, warm and dry Neurologic: no focal deficit, no asterixis, alert and oriented x3 Musculoskeletal: Present: other (no edema) Results - Lab Results 10/08/19 04:18 10/08/19 06:32 Most recent lab results Calcium 9.1 mg/dL (8.4-10.2) 10/08/19 04:18 Assessment and Plan 1. CKD stage 4: Patient is known to have stage 4 CKD and followed by our service. Renal function is around her baseline. Monitor renal function. Avoid nephrotoxic agents. Meds dosage based on GFR. 2. FEN: Hyperkalemia, s/p kayexalate and Insulin-Dextrose. Follow lytes. 3. Acute on chronic respiratory failure: 4. COPD exacerbation. 5. Chronic Anemia: POA.
[2019-10-08] MEDS ORDERED: NON-FORMULARY EACH (Budesonide/Formoterol Fumarate [Symbicort 160-4.5 Mcg Inhaler] 2 PUFF) IH SCH (10:00)
[2019-10-08] MEDS ORDERED: ALBUTEROL 2.5 MG/3 ML NEBU IH PRN (10:33)
[2019-10-08 11:15] LABS: Hepatitis B Surface Antigen Non-Reactive (Negative); Hepatitis C Virus Antibody Non-Reactive (NonReactive)
[2019-10-08] MEDS: BUDESONIDE 0.5 MG/2 ML NEBU IH SCH ×2 (14:45→22:02)
[2019-10-08] MEDS: ARFORMOTEROL 15 MCG/2 ML NEBU IH SCH ×2 (14:45→22:02)
[2019-10-08] MEDS: ACETAMINOPHEN 325 MG TAB PO PRN (21:45)
[2019-10-09] MEDS: IPRATROPIUM/ALBUTEROL SULFATE 3 ML AMPUL.NEB IH SCH ×2 (02:43→08:50)
[2019-10-09 04:34] LABS: Calcium 8.4 mg/dL (8.4-10.2)
[2019-10-09] MEDS: methylPREDNISolone Sod Succinate 40 MG/1 ML INJ IV SCH (05:21)
--- NOTE | 2019-10-09 08:04 | Progress Note ---
Assessment and Plan 1. CKD stage 4: Patient is known to have stage 4 CKD and followed by our service. Renal function is around her baseline. Monitor renal function. Avoid nephrotoxic agents. Meds dosage based on GFR. 2. FEN: Hyperkalemia, improved. Follow lytes. 3. Acute on chronic respiratory failure. 4. COPD exacerbation. 5. Chronic Anemia: POA. Examination: General appearance: well-developed, well-nourished, appears stated age, not in distress, NC O2 HEENT: ATNC, FALGUNI, hearing intact, vision intact Neck: neck supple, trachea midline Respiratory: Clear to Ascultation Heart: regular, S1S2, no murmur Gastrointestinal: normoactive bowel sounds, not tender, not distended Integumentary: no rash, warm and dry Neurologic: no focal deficit, no asterixis, alert and oriented x3 Ext: no edema Subjective Date of service: 10/09/19 Interval history: Patient was seen and examined at the bedside. Doing better. Objective - Vital Signs Vital signs: Vital Signs - 12hr 10/08/19 10/08/19 10/08/19 20:39 22:00 22:03 Temperature Pulse Rate Pulse Rate [ 90 Anterior Bilateral Throughout] Respiratory Rate Respiratory 20 Rate [Anterior Bilateral Throughout] Blood Pressure Blood Pressure 131/67 [Right] O2 Sat by Pulse 98 Oximetry 10/09/19 10/09/19 10/09/19 02:52 07:09 07:12 Temperature 97.6 F 98.2 F 98.4 F Pulse Rate 95 H 90 96 H Pulse Rate [ Anterior Bilateral Throughout] Respiratory 18 20 18 Rate Respiratory Rate [Anterior Bilateral Throughout] Blood Pressure 137/69 136/68 91/53 Blood Pressure [Right] O2 Sat by Pulse 99 98 97 Oximetry 10/09/19 07:55 Temperature Pulse Rate Pulse Rate [ Anterior Bilateral Throughout] Respiratory Rate Respiratory Rate [Anterior Bilateral Throughout] Blood Pressure 140/76 Blood Pressure [Right] O2 Sat by Pulse Oximetry - Lab 10/08/19 04:18 10/09/19 03:43 Most recent lab results Calcium 8.4 mg/dL (8.4-10.2) 10/09/19 03:43 Medications & Allergies - Medications Allergies/Adverse Reactions: Allergies aspirin Allergy (Verified 03/15/18 13:11) Hives Penicillins Allergy (Verified 03/15/18 13:11) Hives Sulfa (Sulfonamide Antibiotics) Allergy (Verified 03/15/18 13:11) Hives Home Medications: Home Medications Medication Instructions Recorded Confirmed Last Taken Type ALBUTEROL Inhaler(NF) [VENTOLIN 2 puff IH Q4H PRN #1 inha 11/01/18 10/07/19 08/07/19 Rx Inhaler(NF)] Acetaminophen [Acetaminophen TAB] 325 mg PO Q4H PRN #10 tablet 11/01/18 10/07/19 08/07/19 Rx Budesonide/Formoterol Fumarate 2 puff IH DAILY #1 hfa.aer.ad 11/01/18 10/07/19 08/07/19 Rx [Symbicort 160-4.5 Mcg Inhaler] Famotidine [Pepcid] 20 mg PO DAILY #30 tablet 11/01/18 10/07/19 08/07/19 Rx Ipratropium/Albuterol Sulfate 1 ampul IH TIDRT PRN #30 ampul.neb 11/01/18 10/07/19 08/07/19 Rx [DUONEB *Not for PRN Use*] Mirtazapine [Remeron 30mg TAB] 30 mg PO QHS PRN #30 tablet 11/01/18 10/07/1908/16 Rx Prednisone [predniSONE 10 mg 10 mg PO .TAPER #1 tab.ds.pk 10/09/19 Unknown Rx (6-Day Pack, 21 Tabs)] Active Medications: Generic Name Dose Route Start Last Admin Trade Name Freq PRN Reason Stop Dose Admin Acetaminophen 650 mg 10/07/19 18:00 10/08/19 21:45 Tylenol PO 650 mg Q4H PRN Administration Pain MILD(1-3)/Fever >100.5/THORNTON Albuterol 2.5 mg 10/08/19 10:33 Proventil IH Q4HRT PRN Shortness Of Breath Albuterol/Ipratropium 1 ampul 10/08/19 02:00 10/09/19 02:43 Duoneb *Not For Prn Use* IH Not Given Q6HRT MANE Arformoterol Tartrate 15 mcg 10/08/19 11:00 10/08/19 22:02 Brovana Nebu IH 15 mcg Q12HRT MANE Administration Budesonide 0.5 mg 10/08/19 11:00 10/08/19 22:02 Pulmicort IH 0.5 mg Q12HRT MANE Administration Heparin Sodium (Porcine) 5,000 unit 10/07/19 22:00 10/08/19 21:39 Heparin SUB-Q 5,000 unit Q12HR MANE Administration Methylprednisolone Sodium Succinate 40 mg 10/08/19 06:00 10/09/19 05:21 Solu-Medrol IV 40 mg Q12H MANE Administration Ondansetron HCl 4 mg 10/07/19 18:00 Zofran IV Q8H PRN Nausea And Vomiting Sodium Chloride 10 ml 10/07/19 22:00 10/08/19 21:39 Sodium Chloride Flush Syringe 10 Ml IV 10 ml BID MANE Administration Sodium Chloride 10 ml 10/07/19 18:00 Sodium Chloride Flush Syringe 10 Ml IV PRN PRN LINE FLUSH
[2019-10-09] MEDS: BUDESONIDE 0.5 MG/2 ML NEBU IH SCH (08:49)
[2019-10-09] MEDS: ARFORMOTEROL 15 MCG/2 ML NEBU IH SCH (08:49)
[2019-10-09] MEDS: HEPARIN 5,000 UNIT/1 ML VIAL SUB-Q SCH (09:42)
[2019-10-09 13:43] VITALS: BP 136/76
--- NOTE | 2019-10-09 13:49 | Discharge Summary ---
Providers - Providers Date of Admission: 10/07/19 18:01 Date of discharge: 10/09/19 Attending physician: AISHA ELIAS 10/07/19 18:00 Consult to Physician [CONS] Routine Comment: Consulting Provider: BRAD MELENDEZ Physician Instructions: Reason For Exam: NELIDA 10/08/19 11:06 Physical Therapy Evaluation and Treat [CONS] Routine Comment: Reason For Exam: weakness Primary care physician: CHIEF PAYROLL CLERK Hospitalization Reason for admission: Worsening shortness of breath/COPD exacerbation/acute on chronic kidney dis Condition: Stable Pertinent studies: Chest x-ray CT head Hospital course: 79 YO Female with HTN, CVA, [place], OA, Asthma, COPD on 3L Home Oxygen, CAD, CHF, presents to ED for evaluation. Pt states that she has experienced shortness of breath for the past 2 days with worsening symptoms over the past 1 day. Pt acknowledges increased productive cough of clear sputum with increased sputum production. Pt symptoms not relieved with increased oxygen, and increased nebulizer therapy. Pt also complains of a headache for the past 1 week with worsening symptoms over the past 3 days. EMS notified, and upon arrival the patient was found to be in distress and transported to [facility]. Pt seen and evaluated in ED and found to have NELIDA, Acute on Chronic Respiratory Failure complicated by COPD Exacerbation. Pt is using accessory muscles to breathe, and is unable to speak in complete sentences. Pt is slumped over in bed and is unable to recline due to shortness of breath. Patient was appropriately managed, evaluated by nephrology, medications optimized Patient had severe hyperkalemia with EKG changes, hyperkalemia probably treated per protocol Today patient is comfortable no new complaints vital signs stable physical examination unremarkable Cleared by nephrology DC home follow-up per schedule Stable at discharge Discharge diagnosis --Severe Hyperkalemia : Current Visit: Yes Status: Acute Patient received IV insulin and dextrose, albuterol inhalation, Kayexalate Monitor potassium levels, nephrology following --Abnormal EKG; Current Visit: Yes Status: Acute tall T waves secondary to severe hyperkalemia We will check EKG again after potassium levels are normal -- NELIDA (acute kidney injury)on CKD Current Visit: Yes Status: Acute Avoid nephrotoxins, monitor renal function Nephrology consulted, renal ultrasound if needed -- Acute and chronic respiratory failure Current Visit: Yes Status: Acute Due to acute exacerbation of COPD supplemental oxygen, nebulizer therapy, ABG, pulse oximetry, NIPPV as clinically indicated, chest x ray, --COPD exacerbation Current Visit: Yes Status: Acute supplemental oxygen, empiric antibiotic therapy, Oxygen nebulizers IV steroids BiPAP as needed Consult pulmonary if needed --HTN (hypertension) Current Visit: Yes Status: Acute monitor bp q shift, continue medical management. --CAD (coronary artery disease) Current Visit: No Status: Chronic Continue current cardiac medications --Osteoarthritis Current Visit: Yes Status: Acute pain control, supportive care. -- DVT prophylaxis Current Visit: No Status: Acute SCD to BLE while in bed, prophylactic heparin Disposition: DC-01 TO HOME OR SELFCARE Time spent for discharge: 32 min Core Measure Documentation - Palliative Care Palliative Care/ Comfort Measures: Not Applicable - Core Measures Any of the following diagnoses?: none Exam - Constitutional Vitals: Temp Pulse Resp BP Pulse Ox 99.0 F 98 H 20 136/76 98 10/09/19 13:36 10/09/19 13:36 10/09/19 08:50 10/09/19 13:36 10/09/19 13:36 General appearance: Present: no acute distress, well-nourished - EENT Eyes: Present: PERRL, EOM intact - Neck Neck: Present: supple, normal ROM - Respiratory Respiratory effort: normal Respiratory: bilateral: diminished, negative: rales, rhonchi, wheezing - Cardiovascular Rhythm: regular Heart Sounds: Present: S1 & S2 - Extremities Extremities: no ischemia, No edema - Abdominal General gastrointestinal: Present: soft, non-tender, non-distended, normal bowel sounds - Integumentary Integumentary: Present: clear, warm - Musculoskeletal Musculoskeletal: strength equal bilaterally - Psychiatric Psychiatric: appropriate mood/affect, cooperative - Neurologic Neurologic: CNII-XII intact, moves all extremities Plan Activity: advance as tolerated, fall precautions Diet: other (cardiac diet) Additional Instructions: Fall precautions. If you have any chest pain or shortness of breath contact MD or go to emergency room Follow up with: MEG BARBER MD [Primary Care Provider] - 7 Days BRAD MELENDEZ MD [Staff Physician] - 7 Days Prescriptions: Prednisone [predniSONE 10 mg (6-Day Pack, 21 Tabs)] 10 mg PO .TAPER #1 tab.ds.pk
== END 2019-10-09 16:08 | disposition home or self-care (01) | DRG 189 ==
LOC: ED 13:38 → 2B-ACE 18:01 → OBSVTOIN 10-09 14:08
PROVIDERS: ADMIT Internal Medicine; ATTEND Internal Medicine
PROC: 4A033R1 Measurement of Arterial Saturation, Peripheral, Percutaneous Approach (ICD-10-PCS; principal; 2019-10-07)
DX: J96.21 Acute and chronic respiratory failure with hypoxia (principal); N17.9 Acute kidney failure, unspecified; J44.1 Chronic obstructive pulmonary disease with (acute) exacerbation; I13.0 Hypertensive heart and chronic kidney disease with heart failure and stage 1 through stage 4 chronic kidney disease, or unspecified chronic kidney disease; I50.32 Chronic diastolic (congestive) heart failure; N18.4 Chronic kidney disease, stage 4 (severe); I25.119 Atherosclerotic heart disease of native coronary artery with unspecified angina pectoris; I49.5 Sick sinus syndrome; Z79.51 Long term (current) use of inhaled steroids; Z88.0 Allergy status to penicillin; Z88.2 Allergy status to sulfonamides; Z88.8 Allergy status to other drugs, medicaments and biological substances; Z86.73 Personal history of transient ischemic attack (TIA), and cerebral infarction without residual deficits; Z95.0 Presence of cardiac pacemaker; Z90.710 Acquired absence of both cervix and uterus; Z87.891 Personal history of nicotine dependence; I25.2 Old myocardial infarction
CPT/HCPCS: 36415; 70450; 71045; 80048; 80053; 80074; 81001; 82803; 83880; 84132; 84484; 85007; 85025; 85610; 85730; 87040; 93005; 93010; 94640; 94644; 94760; 99285; G0378; J1644; J1815; J2270; J2405; J2920; J2930

== ENCOUNTER 2019-12-02 09:53 | Outpatient (CLI) | payer MEDICARE ==
[2019-12-02 10:38] LABS: Albumin 4.3 g/dL (3.9-5); Calcium 8.9 mg/dL (8.4-10.2)
== END 2019-12-02 09:54 | disposition home or self-care (01) ==
LOC: LAB 09:53
PROVIDERS: ATTEND Internal Medicine Nephrology
DX: N18.4 Chronic kidney disease, stage 4 (severe) (principal)
CPT/HCPCS: 36415; 80048; 82040; 84100

== ENCOUNTER 2020-03-26 12:23 | Inpatient (IN) | payer MEDICARE ==
[2020-03-26] MEDS ORDERED: ALBUTEROL 2.5 MG/3 ML NEBU IH ONE (13:13)
[2020-03-26] MEDS ORDERED: ONDANSETRON 4 MG/2 ML INJ IV ONE (13:13)
[2020-03-26] MEDS ORDERED: methylPREDNISolone Sod Succinate 125 MG/2 ML INJ IV ONE (13:13)
[2020-03-26] MEDS ORDERED: MAGNESIUM SULFATE 2 GM/50 ML BAG IV ONE (13:13)
[2020-03-26] MEDS ORDERED: IPRATROPIUM 0.02% NEBU 2.5 ML IH ONE (13:13)
[2020-03-26] MEDS ORDERED: SODIUM CHLORIDE 0.9% 500 ML 500 ML IV ONE (13:14)
[2020-03-26 13:44] LABS: Basophils % (Auto) 0.2 % (0.0-1.8); Eosinophils # (Auto) 0.4 K/mm3 (0.0-0.4); Eosinophils % (Auto) 4.9 % (0.0-4.3); Hematocrit 30.8 % (30.3-42.9); Hemoglobin 10.1 gm/dl (10.1-14.3); Lymphocytes # (Auto) 1.2 K/mm3 (1.2-5.4); Lymphocytes % (Auto) 12.9 % (13.4-35.0); Mean Corpuscular HGB Conc 33 % (30-34); Mean Corpuscular Volume 86 fl (79-97); Monocytes # (Auto) 0.9 K/mm3 (0.0-0.8); Monocytes % (Auto) 9.4 % (0.0-7.3); Platelet Count 154 K/mm3 (140-440); Red Blood Count 3.58 M/mm3 (3.65-5.03); Red Cell Distribution Width 15.3 % (13.2-15.2)
[2020-03-26 13:54] LABS: INR 0.87 (0.87-1.13)
--- NOTE | 2020-03-26 13:59 | Emergency Department Report ---
ED Shortness of Breath HPI - General Chief Complaint: Dyspnea/Respdistress Stated Complaint: NIRAV Time Seen by Provider: 03/26/20 12:50 Source: patient, EMS Mode of arrival: Ambulatory Limitations: No Limitations - History of Present Illness Initial Comments: 79-year-old female with past medical history of hypertension, CVA, [place], OA, asthma, chronic renal insufficiency COPD on 3 L of home oxygen, CAD, and CHF presents to the hospital with complaint of shortness of breath. Patient has chronic COPD which is difficult to control. She used to be a patient Dr. Sargent was subsequently referred to [place] [facility]. She saw [place] several months ago and had a follow-up tele-visit last week. Follow-up tele- visit last week she expressed that she was not feeling better with the current treatment and therefore the doctor added prednisone and doxycycline to her regimen. Patient states she has primarily been having shortness of breath with intermittent wheezing with occasional cough productive of yellow sputum. 3 days after starting the doxycycline patient developed nausea, vomiting, and generalized intermittent abdominal cramps which she characterizes as severe. She currently does not have any pain. Patient denies fever, coronavirus expos ure, or leg edema. She typically sleeps on 2-3 pillows and has increased pillow usage over the past week. She is also complains of intermittent PND with sweats at nighttime. Patient provided nitroglycerin sublingual 0.4 mg in route to the hospital. Patient denies history of previous intubations. patient's roustabout pusher for her chronic renal insufficiency is Dr. Carr - Related Data Previous Rx's Medication Instructions Recorded Last Taken Type ALBUTEROL Inhaler(NF) [VENTOLIN 2 puff IH Q4H PRN #1 inha 11/01/18 08/07/19 Rx Inhaler(NF)] Acetaminophen [Acetaminophen TAB] 325 mg PO Q4H PRN #10 tablet 11/01/18 08/07/19 Rx Budesonide/Formoterol Fumarate 2 puff IH DAILY #1 hfa.aer.ad 11/01/18 08/07/19 Rx [Symbicort 160-4.5 Mcg Inhaler] Famotidine [Pepcid] 20 mg PO DAILY #30 tablet 11/01/18 08/07/19 Rx Ipratropium/Albuterol Sulfate 1 ampul IH TIDRT PRN #30 ampul.neb 11/01/18 08/07/19 Rx [DUONEB *Not for PRN Use*] Mirtazapine [Remeron 30mg TAB] 30 mg PO QHS PRN #30 tablet 11/01/18 08/07/19 Rx Prednisone [predniSONE 10 mg 10 mg PO .TAPER #1 tab.ds.pk 10/09/19 Unknown Rx (6-Day Pack, 21 Tabs)] Allergies Allergy/AdvReac Type Severity Reaction Status Date / Time aspirin Allergy Hives Verified 03/15/18 13:11 Penicillins Allergy Hives Verified 03/15/18 13:11 Sulfa (Sulfonamide Allergy Hives Verified 03/15/18 13:11 Antibiotics) ED Review of Systems ROS: Stated complaint: NIRAV Other details as noted in HPI ED Past Medical Hx - Past Medical History Previous Medical History?: Yes Hx Hypertension: Yes Hx CVA: Yes (x 2) Hx Heart Attack/AMI: No Hx Congestive Heart Failure: Yes Hx Diabetes: No Hx Deep Vein Thrombosis: No Hx Pulmonary Embolism: No Hx Renal Disease: Yes Hx Arthritis: Yes Hx Kidney Stones: No Hx Asthma: No Hx COPD: Yes Hx Tuberculosis: No Hx HIV: No Additional medical history: Chronic Bronchitis - Surgical History Past Surgical History?: Yes Hx Coronary Stent: No Hx Open Heart Surgery: Yes Hx Pacemaker: Yes Hx Internal Defibrillator: No Hx Cholecystectomy: No Hx Appendectomy: No Hx Breast Surgery: No Additional Surgical History: Right Knee Surgery , demand pacemaker (90's). Hyst. cataract removal in both eyes, - Social History Smoking Status: Unknown if ever smoked Substance Use Type: None - Medications Home Medications: Home Medications Medication Instructions Recorded Confirmed Last Taken Type ALBUTEROL Inhaler(NF) [VENTOLIN 2 puff IH Q4H PRN #1 inha 11/01/18 10/07/19 08/07/19 Rx Inhaler(NF)] Acetaminophen [Acetaminophen TAB] 325 mg PO Q4H PRN #10 tablet 11/01/18 10/07/19 08/07/19 Rx Budesonide/Formoterol Fumarate 2 puff IH DAILY #1 hfa.aer.ad 11/01/18 10/07/19 08/07/19 Rx [Symbicort 160-4.5 Mcg Inhaler] Famotidine [Pepcid] 20 mg PO DAILY #30 tablet 11/01/18 10/07/19 08/07/19 Rx Ipratropium/Albuterol Sulfate 1 ampul IH TIDRT PRN #30 ampul.neb 11/01/1808/07/19 Rx [DUONEB *Not for PRN Use*] Mirtazapine [Remeron 30mg TAB] 30 mg PO QHS PRN #30 tablet 11/01/18 10/07/19 08/07/19 Rx Prednisone [predniSONE 10 mg 10 mg PO .TAPER #1 tab.ds.pk 10/09/19 Unknown Rx (6-Day Pack, 21 Tabs)] ED Physical Exam - General Limitations: No Limitations - Other Other exam information: General: No acute distress Head: Atraumatic Eyes: normal appearance ENT: Moist mucous membranes Neck: Normal appearance, no midline tenderness Chest: Bilateral wheezing and expiratory with mild tachypnea CV: Mild tachycardia PACs noted Abdomen: Soft, normal bowel sounds, nontender, nondistended, no rebound or guarding Back: Normal inspection Extremity: Normal inspection, full range of motion, no edema or calf tenderness Neuro: Alert O x 3, no facial asymmetry, speech clear, no gross motor sensory deficit Psych: Appropriate behavior Skin: No rash ED Course Vital Signs 03/26/20 03/26/20 03/26/20 13:05 13:12 13:47 Temperature 99.5 F Pulse Rate 100 H 100 H Pulse Rate [ Anterior Bilateral Throughout] Respiratory 24 29 H 29 H Rate Respiratory Rate [Anterior Bilateral Throughout] Blood Pressure 119/80 119/80 [Right] O2 Sat by Pulse 100 100 Oximetry 03/26/20 14:20 Temperature Pulse Rate Pulse Rate [ 92 H Anterior Bilateral Throughout] Respiratory Rate Respiratory 20 Rate [Anterior Bilateral Throughout] Blood Pressure [Right] O2 Sat by Pulse Oximetry ED Medical Decision Making - Lab Data Result diagrams: 03/26/20 13:17 03/26/20 13:17 Lab Results 03/26/20 03/26/20 03/26/20 Range/Units 13:17 13:17 13:22 WBC 9.1 (4.5-11.0) K/mm3 RBC 3.58 L (3.65-5.03) M/mm3 Hgb 10.1 (10.1-14.3) gm/dl Hct 30.8 (30.3-42.9) % MCV 86 (79-97) fl MCH 28 (28-32) pg MCHC 33 (30-34) % RDW 15.3 H (13.2-15.2) % Plt Count 154 (140-440) K/mm3 Lymph % (Auto) 12.9 L (13.4-35.0) % [place] % (Auto) 9.4 H (0.0-7.3) % Eos % (Auto) 4.9 H (0.0-4.3) % Baso % (Auto) 0.2 (0.0-1.8) % Lymph # 1.2 (1.2-5.4) K/mm3 [place] # 0.9 H (0.0-0.8) K/mm3 Eos # 0.4 (0.0-0.4) K/mm3 Baso # 0.0 (0.0-0.1) K/mm3 Seg Neutrophils % 72.6 H (40.0-70.0) % Seg Neutrophils # 6.6 (1.8-7.7) K/mm3 PT 12.0 L (12.2-14.9) Sec. INR 0.87 (0.87-1.13) Sodium 143 (137-145) mmol/L Potassium 5.5 H (3.6-5.0) mmol/L Chloride 105.9 (98-107) mmol/L Carbon Dioxide 28 (22-30) mmol/L Anion Gap 15 mmol/L BUN 21 H (7-17) mg/dL Creatinine 2.0 H (0.7-1.2) mg/dL Estimated GFR 29 ml/min BUN/Creatinine Ratio 11 % Glucose 93 (65-100) mg/dL Calcium 8.9 (8.4-10.2) mg/dL NT-Pro-B Natriuret Pep 420.9 (0-900) pg/mL - EKG Data -: EKG Interpreted by Id EKG shows normal: sinus rhythm - Radiology Data Radiology results: report reviewed CHEST - 1 VIEW INDICATION: sob, wheezing COMPARISON: 10/07/2019 FINDINGS: SUPPORT DEVICES: Stable support device positioning. HEART: Stable cardiomediastinal silhouette. LUNGS/PLEURA: Clear lungs. Stable sclerotic density overlying the proximal left clavicle could represent a bone island or calcified granuloma. ADDITIONAL FINDINGS: None. IMPRESSION: Unchanged exam. - Medical Decision Making Patient with COPD exacerbation with mild improvement with ED treatment. Patient requires additional time in treatment for COPD exacerbation. ABG pending at disposition hospitalist to follow. Patient has hyperkalemia treated with normal saline followed by Lasix as well as albuterol Critical Care Time: No Critical care attestation.: If time is entered above; I have spent that time in minutes in the direct care of this critically ill patient, excluding procedure time. ED Disposition Clinical Impression: COPD exacerbation, Chronic renal insufficiency, Hyperkalemia Disposition: OP ADMIT IP TO THIS HOSP Is pt being admited?: Yes Condition: Stable Time of Disposition: 15:46 (Dr. Smith/[facility] [id number])
[2020-03-26 14:01] LABS: Calcium 8.9 mg/dL (8.4-10.2)
--- NOTE | 2020-03-26 14:20 | XRay Report ---
CHEST - 1 VIEW INDICATION: sob, wheezing COMPARISON: 10/07/2019 FINDINGS: SUPPORT DEVICES: Stable support device positioning. HEART: Stable cardiomediastinal silhouette. LUNGS/PLEURA: Clear lungs. Stable sclerotic density overlying the proximal left clavicle could repre sent a bone island or calcified granuloma. ADDITIONAL FINDINGS: None. IMPRESSION: Unchanged exam. Signer Name: Rory Valero MD Signed: 03/26/2020 2:15 PM Workstation Name: [id number]
[2020-03-26] MEDS ORDERED: FUROSEMIDE 40 MG/4 ML INJ IV ONE (14:21)
[2020-03-26] MEDS ORDERED: SODIUM CHLORIDE 0.9% 1000 ML 1,000 ML IV ONE (14:22)
--- NOTE | 2020-03-26 16:00 | History and Physical Report ---
History of Present Illness Chief complaint: I could not breathe last night because I just got sick History of present illness: 79 YO Female with HTN, CVA, [place], OA, Asthma, Chronic Respiratory Failure, COPD on 3L Home Oxygen, CAD, CHF, presents to ED for evaluation. Pt states that she has experienced shortness of breath for the past 5 days with acutely worsening symptoms over the past 1 day. Pt acknowledges increased productive cough of clear sputum with increased sputum production. Pt symptoms not relieved with inc reased oxygen, and increased nebulizer therapy. Patient was seen and evaluated by her structural design engineer and was treated with outpatient therapy. Patient reports worsening symptoms with oral antibiotic therapy. EMS notified, and upon arrival the patient was found to be in distress and transported to [facility]. Pt seen and evaluated in ED and found to have NELIDA, Acute on Chronic Respiratory Failure complicated by COPD Exacerbation. Pt is using accessory muscles to breathe, sitting up in bed and leaning forward, and is unable to speak in complete sentences. Pt is able to nod her head to deny fever, chills, chest pain, palpitations, trauma, BRBPR, Syncope, Lacrimation, loss of bowel/bladder continence, vomiting, fall, vertigo, recent ill contacts, or skin rashes, or known exposure to COVID-19. Pt admitted to medical floor and treated with submental oxygen and supportive care due to increased risk of pulmonary decompensation. Prior admission on 10/09/2019 reviewed. All medication listed at time of admission has been reconciled. Advanced care planning conducted in the emergency department. Past History Past Medical History: acute [place], arthritis, CAD, heart failure, hypertension, stroke, other (See HPI) Past Surgical History: cataract removal, total knee replacement Social history: . denies: smoking, alcohol abuse, prescription drug abuse Family history: diabetes, hypertension Medications and Allergies Allergies Allergy/AdvReac Type Severity Reaction Status Date / Time aspirin Allergy Hives Verified 03/15/18 13:11 Penicillins Allergy Hives Verified 03/15/18 13:11 Sulfa (Sulfonamide Allergy Hives Verified 03/15/18 13:11 Antibiotics) Home Medications Medication Instructions Recorded Confirmed Last Taken Type ALBUTEROL Inhaler(NF) [VENTOLIN 2 puff IH Q4H PRN #1 inha 11/01/18 10/07/19 08/07/19 Rx Inhaler(NF)] Acetaminophen [Acetaminophen TAB] 325 mg PO Q4H PRN #10 tablet 11/01/18 10/07/19 08/07/19 Rx Budesonide/Formoterol Fumarate 2 puff IH DAILY #1 hfa.aer.ad 11/01/18 10/07/19 08/07/19 Rx [Symbicort 160-4.5 Mcg Inhaler] Famotidine [Pepcid] 20 mg PO DAILY #30 tablet 11/01/18 10/07/19 08/07/19 Rx Ipratropium/Albuterol Sulfate 1 ampul IH TIDRT PRN #30 ampul.neb 11/01/18 10/07/19 08/07/19 Rx [DUONEB *Not for PRN Use*] Mirtazapine [Remeron 30mg TAB] 30 mg PO QHS PRN #30 tablet 11/01/18 10/07/19 08/07/19 Rx Prednisone [predniSONE 10 mg 10 mg PO .TAPER #1 tab.ds.pk 10/09/19 Unknown Rx (6-Day Pack, 21 Tabs)] Review of Systems Constitutional: no weight loss, no weight gain, no fever, no chills Ears, nose, mouth and throat: no ear pain, no decreased hearing, no nose pain, no nasal congestion, no sinus pressure Cardiovascular: no chest pain, no orthopnea, no palpitations, no rapid/irregular heart beat, no edema Respiratory: cough, cough with sputum, shortness of breath, dyspnea on exertion, no wheezing Genitourinary Female: no pelvic pain, no flank pain, no menorrhagia, no dysuria Rectal: no pain, no incontinence, no bleeding Musculoskeletal: no neck stiffness, no neck pain, no shooting arm pain, no low back pain, no shooting leg pain Integumentary: no pruritis, no sores, no wounds, no boils Neurological: no head injury, no transient paralysis, no paralysis, no tingling, no syncope Psychiatric: no anxiety, no hypersomnia, no change in appetite Endocrine: no cold intolerance, no excessive thirst, no polyuria, no nocturia Hematologic/Lymphatic: no easy bruising, no lymphadenopathy Allergic/Immunologic: no allergic rhinitis, no wheezing, no persistent infection s Exam - Constitutional Vitals: Temp Pulse Resp BP Pulse Ox 99.5 F 92 H 20 138/75 86 03/26/20 13:47 03/26/20 14:20 03/26/20 14:20 03/26/20 15:00 03/26/20 15:00 General appearance: Present: mild distress - EENT Eyes: Present: PERRL ENT: hearing intact, clear oral mucosa - Neck Neck: Present: supple, normal ROM - Respiratory Respiratory effort: labored, accessory muscle use, stridor Respiratory: bilateral: diminished - Cardiovascular Heart Sounds: Present: S1 & S2. Absent: rub, click - Extremities Extremities: pulses symmetrical, No edema Peripheral Pulses: within normal limits - Abdominal General gastrointestinal: Present: soft, non-tender, non-distended, normal bowel sounds Female genitourinary: Present: normal - Integumentary Integumentary: Present: clear, warm, dry - Musculoskeletal Musculoskeletal: gait normal, strength equal bilaterally - Psychiatric Psychiatric: appropriate mood/affect, intact judgment & insight, agitated - Neurologic Neurologic: CNII-XII intact, moves all extremities Results - Labs CBC & Chem 7: 03/26/20 13:17 03/26/20 13:17 Labs: Abnormal lab results 03/26/20 03/26/20 03/26/20 Range/Units 13:17 13:17 13:22 RBC 3.58 L (3.65-5.03) M/mm3 RDW 15.3 H (13.2-15.2) % Lymph % (Auto) 12.9 L (13.4-35.0) % [place] % (Auto) 9.4 H (0.0-7.3) % Eos % (Auto) 4.9 H (0.0-4.3) % [place] # 0.9 H (0.0-0.8) K/mm3 Seg Neutrophils % 72.6 H (40.0-70.0) % PT 12.0 L (12.2-14.9) Sec. Potassium 5.5 H (3.6-5.0) mmol/L BUN 21 H (7-17) mg/dL Creatinine 2.0 H (0.7-1.2) mg/dL Assessment and Plan - Patient Problems (1) Acute and chronic respiratory failure Current Visit: No Status: Acute Qualifiers: Respiratory failure complication: hypoxia Qualified Code(s): J96.21 - Acute and chronic respiratory failure with hypoxia Plan to address problem: Chest x-ray, supplemental oxygen, nebulizer therapy, pulse oximetry, pulmonary toilet, titrate oxygen to maintain pulse oximetry greater than or equal to 89%. (2) Acute kidney injury (NELIDA) with acute tubular necrosis (ATN) Current Visit: Yes Status: Acute Plan to address problem: IV fluid resuscitation therapy as clinically indicated, nephrology team consult ed in ED. Strict I's/O, monitor urine output every shift (3) COPD exacerbation Current Visit: Yes Status: Acute Plan to address problem: Supplemental oxygen, nebulizer therapy, pulse oximetry, IV steroid therapy, noninvasive positive pressure ventilation as clinically indicated. (4) CAD (coronary artery disease) Current Visit: No Status: Chronic Qualifiers: Coronary Disease-Associated Artery/Lesion type: [place] artery [place] vs. transplanted heart: [place] heart Associated angina: with unspecified angina Qualified Code(s): I25.119 - Atherosclerotic heart disease of [place] coronary artery with unspecified angina pectoris Plan to address problem: Risk factor reduction, statin therapy, lipid panel, low cholesterol diet. (5) CHF (congestive heart failure) Current Visit: No Status: Chronic Qualifiers: Heart failure type: combined systolic and diastolic Plan to address problem: Strict I's/O, monitor urine output every shift, daily weight, blood pressure control, supplemental oxygen, pulse oximetry, monitor fluid balance. (6) HTN (hypertension) Current Visit: No Status: Chronic Qualifiers: Hypertension type: essential hypertension Qualified Code(s): I10 - Essential (primary) hypertension Plan to address problem: Monitor blood pressure every shift, continue medical management., Supportive care. (7) DVT prophylaxis Current Visit: No Status: Acute Plan to address problem: SCD to bilateral lower extremities while in bed, patient is ambulatory (8) Advance care planning Current Visit: Yes Status: Acute Plan to address problem: Patient is full code, disease education conducted, patient acknowledges understanding and agreement with care plan, +30 minutes.
[2020-03-26 16:15] LABS: ABG Base Excess 0.8 mmol/L (-2.0-3.0); ABG HCO3 28.4 mmol/L (20.0-26.0); ABG Methemoglobin 0.6 % (0.0-1.5); ABG Oxygen Saturation 96.9 % (95.0-99.0); ABG PCO2 61.4 mm Hg; ABG PH 7.283 pH Units (7.350-7.450)
[2020-03-26] MEDS ORDERED: ONDANSETRON 4 MG/2 ML INJ IV PRN (16:48)
[2020-03-26] MEDS ORDERED: ACETAMINOPHEN 325 MG TAB PO PRN (16:48)
[2020-03-27] MEDS: methylPREDNISolone Sod Succinate 40 MG/1 ML INJ IV SCH ×2 (02:27→14:19)
[2020-03-27 06:14] LABS: Calcium 8.6 mg/dL (8.4-10.2)
[2020-03-27] MEDS ORDERED: INSULIN REGULAR, HUMAN 100 UNITS/1 ML IV ONE (06:46)
[2020-03-27] MEDS ORDERED: DEXTROSE 50% IN WATER (25GM) 50 ML SYRINGE IV ONE (06:47)
[2020-03-27] MEDS ORDERED: SODIUM BICARB 8.4% 50 MEQ/50 ML SYRINGE IV ONE (06:51)
[2020-03-27] MEDS ORDERED: CALCIUM GLUCONATE 1,000 MG in SODIUM CHLORIDE 0.9% 100 ML IV ONE (07:00)
[2020-03-27] MEDS ORDERED: SODIUM POLYSTYRENE 15 GM/60 ML ORAL LIQD PO ONE ×2 (07:30→10:00)
--- NOTE | 2020-03-27 09:37 | Consultation ---
History of Present Illness - Reason for Consult Consult date: 03/27/20 chronic renal failure, hyperkalemia - History of Present Illness The patient is 79 YO female who is well known to our service with history significant for HTN, Diastolic CHF, COPD, chronic hypoxic respiratory failure on home O2, SSS s/p PPM, Anemia and CKD stage 4 who presented to [facility] ED 03/26 with complaining of sob for 5 days. Pt reports increased increased sputum production. Patient was seen and evaluated by her knuckler and was treated with outpatient therapy. Pt denies cough, fever, cp, dizziness, leg swelling, weakness, rash or hemoptysis. Pt was evaluated in ED and admitted with Acute on Chronic Respiratory Failure complicated by COPD Exacerbation and hyperkalemia. Prior admission was in Sep 2019. Labs significant for K 6.1 and creatinine 2.2. Nephrology was consulted for further evaluation. Past History Past Medical History: acute IA, arthritis, CAD, heart failure, hypertension, renal failure, stroke, other (See HPI) Past Surgical History: cataract removal, total knee replacement Social history: . denies: smoking, alcohol abuse, prescription drug abuse Family history: diabetes, hypertension Medications and Allergies Allergies Allergy/AdvReac Type Severity Reaction Status Date / Time aspirin Allergy Hives Verified 03/15/18 13:11 Penicillins Allergy Hives Verified 03/15/18 13:11 Sulfa (Sulfonamide Allergy Hives Verified 03/15/18 13:11 Antibiotics) Home Medications Medication Instructions Recorded Confirmed Last Taken Type ALBUTEROL Inhaler(NF) [VENTOLIN 2 puff IH Q4H PRN #1 inha 11/01/18 03/26/20 08/07/19 Rx Inhaler(NF)] Budesonide/Formoterol Fumarate 2 puff IH DAILY #1 hfa.aer.ad 11/01/18 03/26/20 08/07/19 Rx [Symbicort 160-4.5 Mcg Inhaler] Famotidine [Pepcid] 20 mg PO DAILY #30 tablet 11/01/18 03/26/20 08/07/19 Rx Ipratropium/Albuterol Sulfate 1 ampul IH TIDRT PRN #30 ampul.neb 11/01/18 03/26/20 08/07/19 Rx [DUONEB *Not for PRN Use*] Mirtazapine [Remeron 30mg TAB] 30 mg PO QHS PRN #30 tablet 11/01/18 03/26/20 08/07/19 Rx Sodium Polystyrene Sulfonate 15 gm PO 3XW 03/26/20 03/26/20 Unknown History [Kalexate] traMADoL [Ultram] 50 mg PO Q6HR PRN 03/26/20 03/26/20 Unknown History Active Meds: Active Medications Acetaminophen (Tylenol) 650 mg PO Q4H PRN PRN Reason: Pain MILD(1-3)/Fever >100.5/THORNTON Last Admin: 03/26/20 22:36 Dose: 650 mg Documented by: Azithromycin 500 mg/ Sodium (Chloride) 250 mls @ 250 mls/hr IV Q24HR [facility]; Protocol Stop: 03/29/20 23:59 Methylprednisolone Sodium Succinate (Solu-Medrol) 40 mg IV Q12H [facility] Last Admin: 03/27/20 02:27 Dose: 40 mg Documented by: Ondansetron HCl (Zofran) 4 mg IV Q8H PRN PRN Reason: Nausea And Vomiting Sodium Chloride (Sodium Chloride Flush Syringe 10 Ml) 10 ml IV BID [facility] Last Admin: 03/26/20 23:02 Dose: Not Given Documented by: Sodium Chloride (Sodium Chloride Flush Syringe 10 Ml) 10 ml IV PRN PRN PRN Reason: LINE FLUSH Review of Systems Constitutional: no weight loss, no weight gain, no fever, no chills, no weakness Breasts: deferred Cardiovascular: shortness of breath, high blood pressure, no chest pain, no or thopnea, no edema, no syncope, no lightheadedness, no leg edema Respiratory: excessive sputum, shortness of breath, dyspnea on exertion, home oxygen, no cough Gastrointestinal: no abdominal pain, no nausea, no vomiting, no diarrhea Genitourinary Female: no dysuria, no hematuria Neurological: no syncope, no aphasia, no change in speech, no change in mentation Exam - Vital Signs Vital signs: Vital Signs Pulse Resp BP 103 H 28 H 119/80 03/26/20 13:00 03/26/20 13:00 03/26/20 13:00 - General Appearance General appearance: well-developed, appears stated age, other (no distress) EENT: ATNC, PERRL, hearing intact, vision intact Neck: Present: neck supple, trachea midline Respiratory: Clear to Ascultation Heart: regular, S1S2, no murmurs Gastrointestinal: Present: normoactive bowel sounds. Absent: tenderness, distended Integumentary: no rash, warm and dry Neurologic: no focal deficit, no asterixis, alert and oriented x3 Musculoskeletal: Present: other (no edema) Results - Lab Results 03/26/20 13:17 03/27/20 13:10 Most recent lab results ABG pH 7.283 pH Units (7.350-7.450) L 03/26/20 16:10 ABG pCO2 61.4 mm Hg 03/26/20 16:10 ABG pO2 98.0 mm Hg (80.0-90.0) H 03/26/20 16:10 ABG HCO3 28.4 mmol/L (20.0-26.0) H 03/26/20 16:10 ABG O2 Saturation 96.9 % (95.0-99.0) 03/26/20 16:10 Calcium 8.6 mg/dL (8.4-10.2) 03/27/20 04:31 Assessment and Plan 1. CKD stage 4: Patient is known to have stage 4 CKD and followed by our service. Renal function is around her baseline. Monitor renal function. Avoid nephrotoxic agents. Meds dosage based on GFR. 2. FEN: Hyperkalemia, s/p kayexalate and Insulin-Dextrose. Repeat K 5.3. Follow lytes. 3. Acute on chronic respiratory failure: Symptoms are better. NC O2. 4. COPD exacerbation: On Steroids, Abx and aerosol. 5. Chronic Anemia: POA.
[2020-03-27] MEDS: AZITHROMYCIN 500 MG in SODIUM CHLORIDE 0.9% 250ML 250 ML IV SCH (10:12)
--- NOTE | 2020-03-27 18:40 | Progress Note ---
Assessment and Plan - Patient Problems (1) Acute and chronic respiratory failure Current Visit: No Status: Acute Qualifiers: Respiratory failure complication: hypoxia Qualified Code(s): J96.21 - Acute and chronic respiratory failure with hypoxia Plan to address problem: Chest x-ray, supplemental oxygen, nebulizer therapy, pulse oximetry, pulmonary toilet, titrate oxygen to maintain pulse oximetry greater than or equal to 89%. (2) Acute kidney injury (NELIDA) with acute tubular necrosis (ATN) Current Visit: Yes Status: Acute Plan to address problem: IV fluid resuscitation therapy as clinically indicated, nephrology team consulted in ED. Strict I's/O, monitor urine output every shift (3) COPD exacerbation Current Visit: Yes Status: Acute Plan to address problem: Supplemental oxygen, nebulizer therapy, pulse oximetry, IV steroid therapy, noninvasive positive pressure ventilation as clinically indicated. (4) CAD (coronary artery disease) Current Visit: No Status: Chronic Qualifiers: Coronary Disease-Associated Artery/Lesion type: [place] artery [place] vs. transplanted heart: [place] heart Associated angina: with unspecified angina Qualified Code(s): I25.119 - Atherosclerotic heart disease of [place] coronary ar sary with unspecified angina pectoris Plan to address problem: Risk factor reduction, statin therapy, lipid panel, low cholesterol diet. (5) CHF (congestive heart failure) Current Visit: No Status: Chronic Qualifiers: Heart failure type: combined systolic and diastolic Plan to address problem: Strict I's/O, monitor urine output every shift, daily weight, blood pressure control, supplemental oxygen, pulse oximetry, monitor fluid balance. (6) HTN (hypertension) Current Visit: No Status: Chronic Qualifiers: Hypertension type: essential hypertension Qualified Code(s): I10 - Essential (primary) hypertension Plan to address problem: Monitor blood pressure every shift, continue medical management., Supportive care. (7) DVT prophylaxis Current Visit: No Status: Acute Plan to address problem: SCD to bilateral lower extremities while in bed, patient is ambulatory (8) Advance care planning Current Visit: Yes Status: Acute Plan to address problem: Patient is full code, disease education conducted, patient acknowledges understanding and agreement with care plan, +30 minutes. History Interval history: 79 YO Female HD #2 with Acute on Chronic Respiratory Failure, COPD Exacerbation, NELIDA with ATN who convalesced well overnight. Patient seen and evaluated today and acknowledges improvement in symptoms. Patient continues to have mild dyspnea at rest as well as concomitant dyspnea with exertion. Will continue IV steroid therapy, supplemental oxygen and supportive care overnight. Patient denies fever, chills, chest pain, productive cough, or palpitations. No reported nursing events. Hospitalist Physical - Constitutional Vitals: Temp Pulse Resp BP Pulse Ox 98.6 F 105 H 18 133/94 93 03/27/20 17:11 03/27/20 17:11 03/27/20 17:11 03/27/20 17:11 03/27/20 17:11 General appearance: Present: mild distress - EENT Eyes: Present: PERRL ENT: hearing intact - Neck Neck: Present: supple - Respiratory Respiratory effort: labored Respiratory: bilateral: diminished, rhonchi - Cardiovascular Rhythm: regular Heart Sounds: Present: S1 & S2 - Extremities Extremities: no ischemia Extremity abnormal: edema Peripheral Pulses: within normal limits - Abdominal General gastrointestinal: soft, non-tender, non-distended - Integumentary Integumentary: Present: clear, dry - Psychiatric Psychiatric: appropriate mood/affect, cooperative - Neurologic Neurologic: CNII-XII intact Results - Labs CBC & Chem 7: 03/26/20 13:17 03/27/20 13:10 Labs: Laboratory Last Values WBC 9.1 K/mm3 (4.5-11.0) 03/26/20 13:17 RBC 3.58 M/mm3 (3.65-5.03) L 03/26/20 13:17 Hgb 10.1 gm/dl (10.1-14.3) 03/26/20 13:17 Hct 30.8 % (30.3-42.9) 03/26/20 13:17 MCV 86 fl (79-97) 03/26/20 13:17 MCH 28 pg (28-32) 03/26/20 13:17 MCHC 33 % (30-34) 03/26/20 13:17 RDW 15.3 % (13.2-15.2) H 03/26/20 13:17 Plt Count 154 K/mm3 (140-440) 03/26/20 13:17 Lymph % (Auto) 12.9 % (13.4-35.0) L 03/26/20 13:17 [place] % (Auto) 9.4 % (0.0-7.3) H 03/26/20 13:17 Eos % (Auto) 4.9 % (0.0-4.3) H 03/26/20 13:17 Baso % (Auto) 0.2 % (0.0-1.8) 03/26/20 13:17 Lymph # 1.2 K/mm3 (1.2-5.4) 03/26/20 13:17 [place] # 0.9 K/mm3 (0.0-0.8) H 03/26/20 13:17 Eos # 0.4 K/mm3 (0.0-0.4) 03/26/20 13:17 Baso # 0.0 K/mm3 (0.0-0.1) 03/26/20 13:17 Seg Neutrophils % 72.6 % (40.0-70.0) H 03/26/20 13:17 Seg Neutrophils # 6.6 K/mm3 (1.8-7.7) 03/26/20 13:17 PT 12.0 Sec. (12.2-14.9) L 03/26/20 13:22 INR 0.87 (0.87-1.13) 03/26/20 13:22 ABG pH 7.283 pH Units (7.350-7.450) L 03/26/20 16:10 ABG pCO2 61.4 mm Hg 03/26/20 16:10 ABG pO2 98.0 mm Hg (80.0-90.0) H 03/26/20 16:10 ABG HCO3 28.4 mmol/L (20.0-26.0) H 03/26/20 16:10 ABG O2 Saturation 96.9 % (95.0-99.0) 03/26/20 16:10 ABG O2 Content 14.3 (0.0-44) 03/26/20 16:10 ABG Base Excess 0.8 mmol/L (-2.0-3.0) 03/26/20 16:10 ABG Hemoglobin 10.6 gm/dl (12.0-16.0) L 03/26/20 16:10 ABG Carboxyhemoglobin 1.3 % (0.0-5.0) 03/26/20 16:10 ABG Methemoglobin 0.6 % (0.0-1.5) 03/26/20 16:10 Oxyhemoglobin 95.1 % (95.0-99.0) 03/26/20 16:10 FiO2 32 % 03/26/20 16:10 Sodium 142 mmol/L (137-145) 03/27/20 04:31 Potassium 5.3 mmol/L (3.6-5.0) H 03/27/20 13:10 Chloride 102.3 mmol/L (98-107) 03/27/20 04:31 Carbon Dioxide 30 mmol/L (22-30) 03/27/20 04:31 Anion Gap 16 mmol/L 03/27/20 04:31 BUN 30 mg/dL (7-17) H 03/27/20 04:31 Creatinine 2.2 mg/dL (0.7-1.2) H 03/27/20 04:31 Estimated GFR 26 ml/min 03/27/20 04:31 BUN/Creatinine Ratio 14 % 03/27/20 04:31 Glucose 118 mg/dL (65-100) H 03/27/20 04:31 Calcium 8.6 mg/dL (8.4-10.2) 03/27/20 04:31 NT-Pro-B Natriuret Pep 420.9 pg/mL (0-900) 03/26/20 13:17 Herrera/IV: Voiding Method Toilet IV Catheter Type [Right Upper INT / Saline Lock arm] IV Catheter Type [Right Wrist] Peripheral IV Active Medications - Current Medications Current Medications: Generic Name Dose Route Start Last Admin Trade Name Freq PRN Reason Stop Dose Admin Acetaminophen 650 mg 03/26/20 16:48 03/26/20 22:36 Tylenol PO 650 mg Q4H PRN Administration Pain MILD(1-3)/Fever >100.5/THORNTON Azithromycin 500 mg/ Sodium 250 mls @ 250 mls/hr 03/27/20 10:00 03/27/20 10:12 Chloride IV 03/29/20 23:59 250 mls/hr Q24HR MANE Administration Protocol Methylprednisolone Sodium Succinate 40 mg 03/27/20 02:00 03/27/20 14:19 Solu-Medrol IV 40 mg Q12H MANE Administration Ondansetron HCl 4 mg 03/26/20 16:48 Zofran IV Q8H PRN Nausea And Vomiting Sodium Chloride 10 ml 03/26/20 22:00 03/27/20 10:09 Sodium Chloride Flush Syringe 10 Ml IV 10 ml BID MANE Administration Sodium Chloride 10 ml 03/26/20 16:48 Sodium Chloride Flush Syringe 10 Ml IV PRN PRN LINE FLUSH
[2020-03-28] MEDS ORDERED: ALBUTEROL 2.5 MG/3 ML NEBU IH PRN (00:20)
[2020-03-28] MEDS: methylPREDNISolone Sod Succinate 40 MG/1 ML INJ IV SCH (02:15)
[2020-03-28 05:25] LABS: Calcium 8.7 mg/dL (8.4-10.2)
[2020-03-28 08:49] VITALS: BP 139/70
[2020-03-28] MEDS: AZITHROMYCIN 500 MG in SODIUM CHLORIDE 0.9% 250ML 250 ML IV SCH (09:41)
--- NOTE | 2020-03-28 11:06 | Progress Note ---
Assessment and Plan 1. CKD stage 4: Patient is known to have stage 4 CKD and followed by our service. Renal function is around her baseline. Monitor renal function. Avoid nephrotoxic agents. Meds dosage based on GFR. 2. FEN: Hyperkalemia, s/p kayexalate and Insulin-Dextrose. K is 4.8 today. Follow lytes. 3. Acute on chronic respiratory failure: Symptoms are better. NC O2. 4. COPD exacerbation: On Steroids, Abx and aerosol. 5. Chronic Anemia: POA. Patient has an appt to see us in the office on 03/30. Subjective: Patient was seen and examined at the bedside. Doing better. - Examination: General appearance: well-developed, appears stated age, no distress HEENT: ATNC, [place], hearing intact, vision intact Neck: neck supple, trachea midline Respiratory: Clear to Ascultation Heart: regular, S1S2, no murmur Gastrointestinal: soft, normoactive bowel sounds, not tender, not distended Integumentary: no rash, warm and dry Neurologic: no focal deficit, no asterixis, alert and oriented x3 Ext: no edema Subjective Date of service: 03/28/20 Objective - Vital Signs Vital signs: Vital Signs - 12hr 03/27/20 03/28/20 03/28/20 23:54 01:30 05:17 Temperature 98.5 F 97.5 F L Pulse Rate 95 H 88 Pulse Rate [ 91 H Anterior Bilateral Throughout] Respiratory 18 18 Rate Respiratory 18 Rate [Anterior Bilateral Throughout] Blood Pressure 136/80 126/63 O2 Sat by Pulse 97 98 Oximetry 03/28/20 03/28/20 07:29 10:00 Temperature 98.3 F Pulse Rate 80 90 Pulse Rate [ Anterior Bilateral Throughout] Respiratory 18 18 Rate Respiratory Rate [Anterior Bilateral Throughout] Blood Pressure 139/70 O2 Sat by Pulse 97 96 Oximetry - Lab 03/26/20 13:17 03/28/20 04:29 Most recent lab results ABG pH 7.283 pH Units (7.350-7.450) L 03/26/20 16:10 ABG pCO2 61.4 mm Hg 03/26/20 16:10 ABG pO2 98.0 mm Hg (80.0-90.0) H 03/26/20 16:10 ABG HCO3 28.4 mmol/L (20.0-26.0) H 03/26/20 16:10 ABG O2 Saturation 96.9 % (95.0-99.0) 03/26/20 16:10 Calcium 8.7 mg/dL (8.4-10.2) 03/28/20 04:29 Medications & Allergies - Medications Allergies/Adverse Reactions: Allergies aspirin Allergy (Verified 03/15/18 13:11) Hives Penicillins Allergy (Verified 03/15/18 13:11) Hives Sulfa (Sulfonamide Antibiotics) Allergy (Verified 03/15/18 13:11) Hives Home Medications: Home Medications Medication Instructions Recorded Confirmed Last Taken Type ALBUTEROL Inhaler(NF) [VENTOLIN 2 puff IH Q4H PRN #1 inha 11/01/18 03/26/20 08/07/19 Rx Inhaler(NF)] Budesonide/Formoterol Fumarate 2 puff IH DAILY #1 hfa.aer.ad 11/01/18 03/26/20 08/07/19 Rx [Symbicort 160-4.5 Mcg Inhaler] Famotidine [Pepcid] 20 mg PO DAILY #30 tablet 11/01/18 03/26/20 08/07/19 Rx Ipratropium/Albuterol Sulfate 1 ampul IH TIDRT PRN #30 ampul.neb 11/01/18 03/26/20 08/07/19 Rx [DUONEB *Not for PRN Use*] Mirtazapine [Remeron 30mg TAB] 30 mg PO QHS PRN #30 tablet 11/01/18 03/26/20 08/07/19 Rx Sodium Polystyrene Sulfonate 15 gm PO 3XW 03/26/20 03/26/20 Unknown History [Kalexate] traMADoL [Ultram] 50 mg PO Q6HR PRN 03/26/20 03/26/20 Unknown History Active Medications: Generic Name Dose Route Start Last Admin Trade Name Freq PRN Reason Stop Dose Admin Acetaminophen 650 mg 03/26/20 16:48 03/26/20 22:36 Tylenol PO 650 mg Q4H PRN Administration Pain MILD(1-3)/Fever >100.5/THORNTON Albuterol 2.5 mg 03/28/20 00:20 03/28/20 01:32 Proventil IH 2.5 mg Q4HRT PRN Administration Shortness Of Breath Azithromycin 500 mg/ Sodium 250 mls @ 250 mls/hr 03/27/20 10:00 03/28/20 09:41 Chloride IV 03/29/20 23:59 250 mls/hr Q24HR MANE Administration Protocol Methylprednisolone Sodium Succinate 40 mg 03/27/20 02:00 03/28/20 02:15 Solu-Medrol IV 40 mg Q12H MANE Administration Ondansetron HCl 4 mg 03/26/20 16:48 Zofran IV Q8H PRN Nausea And Vomiting Sodium Chloride 10 ml 03/26/20 22:00 03/28/20 09:41 Sodium Chloride Flush Syringe 10 Ml IV 10 ml BID MANE Administration Sodium Chloride 10 ml 03/26/20 16:48 Sodium Chloride Flush Syringe 10 Ml IV PRN PRN LINE FLUSH
--- NOTE | 2020-03-28 13:49 | Discharge Summary ---
Providers - Providers Date of Admission: 03/26/20 16:48 Attending physician: YESENIA JEFFERY 03/26/20 16:03 Consult to Physician [CONS] Routine Comment: Consulting Provider: BRAD MELENDEZ Physician Instructions: Reason For Exam: NELIDA Primary care physician: TOM GARDUNO Hospitalization Condition: Stable Hospital course: 79 YO Female with HTN, CVA, RI, OA, Asthma, Chronic Respiratory Failure, COPD on 3L Home Oxygen, CAD, CHF, presented to ED for evaluation. Pt stated that she had experienced shortness of breath for the past 5 days with acutely worsening s ymptoms over the past 1 day prior to presentation to ED. Pt acknowledged increased productive cough of clear sputum with increased sputum production. Pt symptoms not relieved with increased oxygen, and increased nebulizer therapy. Patient was seen and evaluated by her sociology adjunct instructor and was treated with outpatient therapy without improvement. Patient reported worsening symptoms with oral antibiotic therapy. EMS notified, and upon arrival the patient was found to be in distress and transported to [facility]. Pt seen and evaluated in ED and found to have NELIDA, Acute on Chronic Respiratory Failure complicated by COPD Exacerbation. Pt was using accessory muscles to breathe, sitting up in bed and leaning forward, and was unable to speak in complete sentences. Pt was able to nod her head to deny fever, chills, chest pain, palpitations, trauma, BRBPR, Syncope, Lacrimation, loss of bowel/bladder continence, vomiting, fall, vertigo, recent ill contacts, or skin rashes, or known exposure to COVID-19. Pt admitted to medical floor and treated with supplemental oxygen and supportive care due to increased risk of pulmonary decompensation.. Advanced care planning conducted in the emergency department. Patient convalesced well during her hospital course. Patient symptoms improved. Hospital day 2 patient was treated with continued IV antibiotic therapy as well as concomitant IV steroid therapy. Patient medically optimized and back to usual state of health. Patient seen and evaluated prior to discharge but no significant new physical exam findings were identified on exam. Patient discharged home and instructed to follow-up with primary care physician within 1 week. 35 minutes dedicated to patient discharge and coordination of care. Disposition: TO HOME OR SELFCARE - Discharge Diagnoses (1) Acute and chronic respiratory failure Status: Acute Qualifiers: Respiratory failure complication: hypoxia Qualified Code(s): J96.21 - Acute and chronic respiratory failure with hypoxia (2) Acute kidney injury (NELIDA) with acute tubular necrosis (ATN) Status: Acute (3) COPD exacerbation Status: Acute (4) CAD (coronary artery disease) Status: Chronic Qualifiers: Coronary Disease-Associated Artery/Lesion type: [place] artery [place] vs. transplanted heart: [place] heart Associated angina: with unspecified angina Qualified Code(s): I25.119 - Atherosclerotic heart disease of [place] coronary artery with unspecified angina pectoris (5) CHF (congestive heart failure) Status: Chronic Qualifiers: Heart failure type: combined systolic and diastolic (6) HTN (hypertension) Status: Chronic Qualifiers: Hypertension type: essential hypertension Qualified Code(s): I10 - Essential (primary) hypertension (7) DVT prophylaxis Status: Acute (8) Advance care planning Status: Acute Core Measure Documentation - Palliative Care Palliative Care/ Comfort Measures: Not Applicable - Core Measures Any of the following diagnoses?: heart failure - Heart Failure Discharge Requirements ELVIRA/ARB for LVSD if EF <40%: No Reason for no ELVIRA/ARB: Renal impairment Beta soledad at discharge: No Reason for no beta soledad on DC: Medical contraindication (Respiratory failure/Bronchospasm.) Exam - Constitutional Vitals: Temp Pulse Resp BP Pulse Ox 98.3 F 90 18 139/70 96 03/28/20 07:29 03/28/20 10:00 03/28/20 10:00 03/28/20 07:29 03/28/20 10:00 General appearance: Present: no acute distress, well-nourished - EENT Eyes: Present: PERRL ENT: hearing intact, clear oral mucosa - Neck Neck: Present: supple, normal ROM - Respiratory Respiratory effort: normal Respiratory: bilateral: CTA - Cardiovascular Heart Sounds: Present: S1 & S2. Absent: rub, click - Extremities Extremities: pulses symmetrical, No edema Peripheral Pulses: within normal limits - Abdominal General gastrointestinal: Present: soft, non-tender, non-distended, normal bowel sounds Female genitourinary: Present: normal - Integumentary Integumentary: Present: clear, warm, dry - Musculoskeletal Musculoskeletal: gait normal, strength equal bilaterally - Psychiatric Psychiatric: appropriate mood/affect, intact judgment & insight - Neurologic Neurologic: CNII-XII intact, moves all extremities Plan Activity: advance as tolerated Follow up with: TOM GARDUNO MD [Primary Care Provider] - 7 Days Forms: Discharge Signature Page Prescriptions: Prednisone [predniSONE 10 mg (6-Day Pack, 21 Tabs)] 10 mg PO .TAPER #1 tab.ds.pk Azithromycin [Zithromax TAB] 250 mg PO QDAY #6 tablet
== END 2020-03-28 15:15 | disposition home or self-care (01) | DRG 682 ==
LOC: ED 12:23 → 4A 16:48
PROVIDERS: ADMIT Internal Medicine; ATTEND Internal Medicine
PROC: 4A033R1 Measurement of Arterial Saturation, Peripheral, Percutaneous Approach (ICD-10-PCS; principal; 2020-03-26)
DX: N17.0 Acute kidney failure with tubular necrosis (principal); J96.21 Acute and chronic respiratory failure with hypoxia; J44.1 Chronic obstructive pulmonary disease with (acute) exacerbation; I50.42 Chronic combined systolic (congestive) and diastolic (congestive) heart failure; I13.0 Hypertensive heart and chronic kidney disease with heart failure and stage 1 through stage 4 chronic kidney disease, or unspecified chronic kidney disease; N18.4 Chronic kidney disease, stage 4 (severe); I25.10 Atherosclerotic heart disease of native coronary artery without angina pectoris; M19.90 Unspecified osteoarthritis, unspecified site; E87.5 Hyperkalemia; D63.8 Anemia in other chronic diseases classified elsewhere; Z86.73 Personal history of transient ischemic attack (TIA), and cerebral infarction without residual deficits; I25.2 Old myocardial infarction; Z88.6 Allergy status to analgesic agent; Z88.0 Allergy status to penicillin; Z88.2 Allergy status to sulfonamides; Z79.899 Other long term (current) drug therapy; Z82.49 Family history of ischemic heart disease and other diseases of the circulatory system; Z83.3 Family history of diabetes mellitus; Z95.0 Presence of cardiac pacemaker
CPT/HCPCS: 36415; 36600; 71045; 80048; 82803; 83880; 84132; 85025; 85610; 93005; 94640; 94644; 94760; G0378; J0456; J0610; J1815; J1940; J2405; J2920; J2930; J3475; J7030; J7040; J7050

== ENCOUNTER 2020-03-30 10:05 | Outpatient (CLI) | payer MEDICARE ==
[2020-03-30 11:17] LABS: Albumin 4.1 g/dL (3.9-5); Calcium 8.6 mg/dL (8.4-10.2)
== END 2020-03-30 10:06 | disposition home or self-care (01) ==
LOC: LAB 10:05
PROVIDERS: ATTEND Internal Medicine Nephrology
DX: N18.4 Chronic kidney disease, stage 4 (severe) (principal)
CPT/HCPCS: 36415; 80048; 82040; 84100

== ENCOUNTER 2020-04-25 18:39 | Emergency (ER) | payer MEDICARE ==
[2020-04-25] MEDS ORDERED: IPRATROPIUM 0.02% NEBU 2.5 ML IH STA (20:26)
[2020-04-25] MEDS ORDERED: ALBUTEROL 2.5 MG/3 ML NEBU IH ONE (20:26)
[2020-04-25] MEDS ORDERED: oxyCODONE /ACETAMINOPHEN 5-325MG TAB PO ONE (20:26)
--- NOTE | 2020-04-25 20:29 | Emergency Department Report ---
ED General Adult HPI - General Chief complaint: Fall Stated complaint: BACK PAIN PUI?: No Time Seen by Provider: 04/25/20 20:02 Source: patient, EMS ( EMS documentation not available at time of chart dictation ), RN notes reviewed, old records reviewed Mode of arrival: Stretcher Limitations: No Limitations, Physical Limitation - History of Present Illness Initial comments: Primary care doctor: Dr. Julio Wyatt Pulmonology: Dr. Castillo Past medical history: Hypertension, stroke, heart disease, arthritis, asthma, respiratory failure chronically, COPD on 3 L of home oxygen, CHF The patient is a 79-year-old female. She is brought to the hospital by emergency medical services with a complaint of mechanical fall. She lives at home by herself, has a cane, has a walker, but does not use them typically. She states that she slipped. Prior to falling, she was not having any new or different symptoms. She states that she slipped, fell onto her buttocks and lower back. She did not hit her head or neck that she is aware of. She endorses chronic cough, acute wheezing, denies neck pain, chest pain, abdominal pain. Positive shortness of breath. No extremity weakness and or numbness. No bladder or bowel retention or incontinence. No saddle anesthesia. No irritative or obstructive urinary symptoms. States diffuse paralumbar lower back pain. Throbbing and aching. Does not radiate anywhere. Increases with palpation, range of motion, twisting. Decreases with rest and certain positions. -: Sudden Location: back Radiation: non-radiation Quality: other Consistency: other Improves with: other Worsens with: other Associated Symptoms: other - Related Data Home Medications Medication Instructions Recorded Confirmed Last Taken Sodium Polystyrene Sulfonate 15 gm PO 3XW 03/26/20 03/26/20 Unknown [Kalexate] traMADoL [Ultram] 50 mg PO Q6HR PRN 03/26/20 03/26/20 Unknown Previous Rx's Medication Instructions Recorded Last Taken Type ALBUTEROL Inhaler(NF) [VENTOLIN 2 puff IH Q4H PRN #1 inha 11/01/18 08/07/19 Rx Inhaler(NF)] Budesonide/Formoterol Fumarate 2 puff IH DAILY #1 hfa.aer.ad 11/01/18 08/07/19 Rx [Symbicort 160-4.5 Mcg Inhaler] Famotidine [Pepcid] 20 mg PO DAILY #30 tablet 11/01/18 08/07/19 Rx Ipratropium/Albuterol Sulfate 1 ampul IH TIDRT PRN #30 ampul.neb 11/01/18 08/07/19 Rx [DUONEB *Not for PRN Use*] Mirtazapine [Remeron 30mg TAB] 30 mg PO QHS PRN #30 tablet 11/01/18 08/07/19 Rx Azithromycin [Zithromax TAB] 250 mg PO QDAY #6 tablet 03/28/20 Unknown Rx Prednisone [predniSONE 10 mg 10 mg PO .TAPER #1 tab.ds.pk 03/28/20 Unknown Rx (6-Day Pack, 21 Tabs)] Allergies Allergy/AdvReac Type Severity Reaction Status Date / Time aspirin Allergy Hives Verified 03/15/18 13:11 Penicillins Allergy Hives Verified 03/15/18 13:11 Sulfa (Sulfonamide Allergy Hives Verified 03/15/18 13:11 Antibiotics) ED Review of Systems ROS: Stated complaint: BACK PAIN Other details as noted in HPI Constitutional: denies: fever Eyes: denies: eye discharge ENT: congestion Respiratory: cough Cardiovascular: denies: syncope Gastrointestinal: denies: abdominal pain Genitourinary: denies: dysuria Musculoskeletal: back pain, arthralgia, myalgia Skin: denies: lesions Neurological: denies: weakness, numbness, paresthesias Hematological/Lymphatic: denies: easy bleeding ED Past Medical Hx - Past Medical History Previous Medical History?: Yes Hx Hypertension: Yes Hx CVA: Yes (x 2) Hx Heart Attack/AMI: No Hx Congestive Heart Failure: Yes Hx Diabetes: No Hx Deep Vein Thrombosis: No Hx Pulmonary Embolism: No Hx Renal Disease: Yes Hx Arthritis: Yes Hx Kidney Stones: No Hx Asthma: No Hx COPD: Yes Hx Tuberculosis: No Hx HIV: No Additional medical history: Chronic Bronchitis - Surgical History Past Surgical History?: Yes Hx Coronary Stent: No Hx Open Heart Surgery: Yes Hx Pacemaker: Yes Hx Internal Defibrillator: No Hx Cholecystectomy: No Hx Appendectomy: No Hx Breast Surgery: No Additional Surgical History: Right Knee Surgery , demand pacemaker (90's). Hyst. cataract removal in both eyes, - Social History Smoking Status: Former Smoker Substance Use Type: None - Medications Home Medications: Home Medications Medication Instructions Recorded Confirmed Last Taken Type ALBUTEROL Inhaler(NF) [VENTOLIN 2 puff IH Q4H PRN #1 inha 11/01/18 03/26/20 08/07/19 Rx Inhaler(NF)] Budesonide/Formoterol Fumarate 2 puff IH DAILY #1 hfa.aer.ad 11/01/18 03/26/20 08/07/19 Rx [Symbicort 160-4.5 Mcg Inhaler] Famotidine [Pepcid] 20 mg PO DAILY #30 tablet 11/01/18 03/26/20 08/07/19 Rx Ipratropium/Albuterol Sulfate 1 ampul IH TIDRT PRN #30 ampul.neb 11/01/18 03/26/20 08/07/19 Rx [DUONEB *Not for PRN Use*] Mirtazapine [Remeron 30mg TAB] 30 mg PO QHS PRN #30 tablet 11/01/18 03/26/20 08/07/19 Rx Sodium Polystyrene Sulfonate 15 gm PO 3XW 03/26/20 03/26/20 Unknown History [Kalexate] traMADoL [Ultram] 50 mg PO Q6HR PRN 03/26/20 03/26/20 Unknown History Azithromycin [Zithromax TAB] 250 mg PO QDAY #6 tablet 03/28/20 Unknown Rx Prednisone [predniSONE 10 mg 10 mg PO .TAPER #1 tab.ds.pk 03/28/20 Unknown Rx (6-Day Pack, 21 Tabs)] ED Physical Exam - General Limitations: Physical Limitation General appearance: alert, anxious - Head Head exam: Present: atraumatic, normocephalic - Eye Eye exam: Present: normal appearance, EOMI. Absent: nystagmus - ENT ENT exam: Present: normal exam, mucous membranes moist, normal external ear exam - Neck Neck exam: Present: normal inspection, full ROM. Absent: tenderness, meningismus - Respiratory Respiratory exam: Present: wheezes, rhonchi. Absent: respiratory distress - Cardiovascular Cardiovascular Exam: Present: regular rate, normal rhythm, normal heart sounds. Absent: bradycardia, tachycardia, irregular rhythm, systolic murmur, diastolic murmur, rubs, gallop - GI/Abdominal GI/Abdominal exam: Present: soft. Absent: distended, tenderness, guarding, rebound, rigid, pulsatile mass - Extremities Exam Extremities exam: Present: normal inspection, full ROM, other (2+ pulses noted in the bilateral upper and lower extremities. There is no palpable cord. negative Homans sign. Muscular compartments are soft. The pelvis is stable.). Absent: pedal edema, calf tenderness - Back Exam Back exam: Present: normal inspection, paraspinal tenderness, vertebral tenderness. Absent: CVA tenderness (R), CVA tenderness (L) - Neurological Exam Neurological exam: Present: alert, other (No facial droop. Tongue midline. Extraocular movements intact bilaterally. Facial sensation intact to light touch in V1, V2, V3 distribution bilaterally. 5 and a 5 strength in 4 extremities. Sensation intact to light touch in 4 extremities.). Absent: motor sensory deficit - Psychiatric Psychiatric exam: Present: anxious - Skin Skin exam: Present: warm, dry, intact, normal color. Absent: rash ED Course Vital Signs 04/25/20 04/25/20 04/25/20 19:57 20:00 20:15 Temperature Pulse Rate 82 74 77 Respiratory 18 19 32 H Rate Blood Pressure 197/78 182/84 O2 Sat by Pulse 99 Oximetry 04/25/20 04/25/20 04/25/20 20:30 21:02 21:30 Temperature 98.6 F Pulse Rate 80 Respiratory 28 H Rate Blood Pressure 179/90 179/90 O2 Sat by Pulse 100 96 Oximetry - Reevaluation(s) Reevaluation #1: 04/25/20 21:02 Differential diagnosis, including not limited to: Mechanical slip and fall, intracranial injury, spinal injury, retroperitoneal injury, emphysema, urinary tract infection, electrolyte derangement, anemia Assessment and plan: 79-year-old female with multiple medical comorbidities and chronic issues, who is asymptomatic and at her baseline, with a mechanical fall at home. Vital signs pending. GCS 15. Patient is clinically sober at this time. The cervical spine is cleared through nexus and hungarian c spine rule diffusely tender in the paralumbar region. Given advanced age, D acceleration component, noncontrast CT scan of the brain will be obtained. Noncontrast CT scan of the abdomen pelvis will be obtained. Lumbar spine CT will be obtained. EKG, urinalysis, laboratory studies, pain medicine will be ordered. Vital signs pending at this time. Case management consultation ordered assuming patient does not have an emergent medical condition, which we anticipate, to provide home assessment to determine if patient is eligible for home therapies. She is also slightly wheezing at this time, will give albuterol, Atrovent and steroids. We will reassess after her initial data points have resulted. Reevaluation #2: 04/25/20 21:30 X-ray the chest is reviewed and appreciated. Do not clinically suspect pneumonia. In addition, CT scan of the abdomen pelvis has visualized lung bases, findings not consistent with pneumonia. L3 burst fracture without hematoma or retropulsion is demonstrated on both CT and L-spine CT. After discussion with the interpreting radiologist, Dr. Tracy Sanderson, she indicates that after evaluation on bony pelvis component of CT, the proximal femur appears to be within normal limits. Screening laboratory studies are pending at this time. Vital signs reviewed and appreciated, temperature pending at this time. Given advanced age, mechanism, presence of L3 burst fracture, tenderness, we will discuss with trauma surgery at [place]. Please note that this hospital does not have trauma surgery, orthopedics, spine available for consultation. 04/25/20 21:41 Temperature verbally reported to myself as 98.2 degrees. Reevaluation #3: 04/25/20 21:46 Discussed with trauma surgeon, . we discussed with trauma surgeon, Dr. Crowell Patient is accepted as a transfer to [facility]. Given that patient has an acute spinal burst fracture, will require consultation with neurosurgery, rehabilitation/physical therapy, placement of brace, and case management, and we cannot provide neurosurgical consultation, brace evaluation, and physical therapy evaluation would not be able to take place in a timely fashion. Therefore, we will transfer the patient for services not available at this time. She is medically suitable for transfer at this time. Patient updated on plan of care. ED Medical Decision Making - Lab Data Result diagrams: 04/25/20 21:02 04/25/20 21:02 Vital Signs 04/25/20 04/25/20 04/25/20 19:57 20:00 20:15 Pulse Rate 82 74 77 Respiratory 18 19 32 H Rate Blood Pressure 197/78 182/84 O2 Sat by Pulse 99 Oximetry 04/25/20 04/25/20 20:30 21:02 Pulse Rate 80 Respiratory 28 H Rate Blood Pressure 179/90 179/90 O2 Sat by Pulse 100 96 Oximetry Labs 04/25/20 21:02 Hgb 10.0 L Hct 31.7 Plt Count 153 Lab Results 04/25/20 04/25/20 Range/Units 21:02 21:02 Hgb 10.0 L (10.1-14.3) gm/dl Hct 31.7 (30.3-42.9) % Plt Count 153 (140-440) K/mm3 Sodium 142 (137-145) mmol/L Potassium 5.4 H (3.6-5.0) mmol/L Chloride 102.7 (98-107) mmol/L Carbon Dioxide 30 (22-30) mmol/L Anion Gap 15 mmol/L BUN 24 H (7-17) mg/dL Creatinine 2.1 H (0.7-1.2) mg/dL Estimated GFR 27 ml/min BUN/Creatinine Ratio 11 % Glucose 122 H (65-100) mg/dL Calcium 8.9 (8.4-10.2) mg/dL Magnesium 2.20 (1.7-2.3) mg/dL Total Creatine Kinase 95 (30-135) units/L - EKG Data 04/25/20 21:41 EKG shows a sinus rhythm, 92 bpm, left axis, left axis deviation, left anterior fascicular block, premature atrial contractions, right bundle branch block, ST abnormality, motion artifact, the EKG is not a STEMI. It is abnormal - Radiology Data Radiology results: pending, report reviewed, image reviewed interpreted by me: X-ray of the chest is negative for acute disease. Chronic findings noted. Left-sided cardiac device in situ is noted. Chronic emphysematous changes noted. DJD is noted. X-ray of the pelvis shows DJD. Otherwise, no acute disease Print Report Referring Physician: JAYDEN PEREZ Patient Name: DANN STALLINGS Date of : 1940 Sex: Female Report Date: 2020-04-25 Report Status: Finalized Findings [facility] [address] [place] [address] Cat Scan Report Signed Patient: DANN STALLINGS MR#: [id number] : 1940 Acct:[id number] Age/Sex: 79 / F ADM Date: 04/25/20 Loc: ED Attending Dr: Ordering Physician: JAYDEN PEREZ MD Date of Service: 04/25/20 Procedure(s): CT abdomen pelvis wo con Accession Number(s): [id number] cc: JAYDEN PEREZ MD CT abdomen pelvis wo con INDICATION / CLINICAL INFORMATION: fall acute lower back pain. TECHNIQUE: Axial CT imaging of abdomen and pelvis was obtained without contrast. Coronal and sagittal reformatted imaging obtained and reviewed. All CT scans at this location are performed using CT dose reduction for ALARA by means of automated exposure control. COMPARISON: Prior CT abdomen/pelvis, 07/10/2014 FINDINGS: CT abdomen without contrast demonstrates normal appearance of the liver, spleen, pancreas, kidneys, and adrenal glands. Gallbladder is unremarkable. No intrarenal calculi or hydronephrosis identified. Small hiatal hernia is present. No free air or free fluid. CT pelvis without contrast does not demonstrate any pelvic mass, free fluid, or focal inflammatory change. Prior hysterectomy. The appendix is not confidently identified but I do not see any sec ondary signs of appendicitis in the right lower quadrant. Scattered diverticulosis is seen throughout the visualized colon, most severe in the sigmoid and distal descending colon. The remainder of the GI tract is unremarkable. Visualized lung bases show bibasilar bronchiectasis but no acute superimposed pulmonary or pleural disease. There is large amount of calcified plaque throughout the abdominal aorta and common iliac arteries but no evidence of aortic aneurysm. Review of osseous structures demonstrates a burst fracture of L3. There has not any significant surrounding hematoma. Posterior alignment remains normal. There is old mild compression fracture of L1. There is significant degenerative change throughout the spine. No additional fractures are identified. IMPRESSION: 1. Burst fracture of L3 vertebral body without abnormal displacement. There is only mild loss of vertebral body height and no significant surrounding hematoma. 2. No acute soft tissue abnormality within the abdomen or pelvis on this noncontrasted exam. 3. Incidental findings of diverticulosis and small hiatal hernia. 4. Large amount of calcified plaque throughout the abdominal aorta and common iliac arteries. Signer Name: Tracy Sanderson MD Signed: 04/25/2020 9:15 PM Workstation Name: [id number] Transcribed By: JR Dictated By: Tracy Sanderson MD Electronically Authenticated By: Tracy Sanderson MD Signed Date/Time: 04/25/202114 DD/ 06 TD/TT: Print Report Referring Physician: JAYDEN PEREZ Patient Name: DANN STALLINGS Date of : 1940 Sex: Female Report Date: 2020-04-25 Report Status: Finalized Findings [address] [address] Cat Scan Report Signed Patient: DANN STALLINGS MR#: [id number] : 1940 Acct:[id number] Age/Sex: 79 / F ADM Date: 04/25/20 Loc: ED Attending Dr: Ordering Physician: JAYDEN PEREZ MD Date of Service: 04/25/20 Procedure(s): CT head/brain wo con Accession Number(s): [id number] cc: JAYDEN PEREZ MD CT head without contrast INDICATION : Headache following fall. TECHNIQUE: Axial imaging performed from the skull apex through the skull base without the use of contrast. All CT examinations performed at this facility utilize dose modulation, iterative reconstruction or weight-based dosing, when appropriate, to reduce radiation dose to as low as reasonably achievable. COMPARISON: 10/07/2019 FINDINGS: No acute intracranial hemorrhage or parenchymal abno rmality. Mild diffuse cerebral atrophy is again noted, unchanged from the prior exam the ventricles are grossly unchanged in appearance.. Soft tissues including the orbits appear normal. No acute osseous abnormality. Sinuses and mastoid air cells are clear. IMPRESSION: No acute abnormality. No significant change from the prior exam, as above. Signer Name: Jules Mosqueda MD Signed: 04/25/2020 9:11 PM Workstation Name: [id number] Transcribed By: BC Dictated By: Jules Mosqueda MD Electronically Authenticated By: Jules Mosqueda MD Signed Date/Time: 04/25/202110 DD/ 07 TD/TT: Print Report Referring Physician: JAYDEN PEREZ Patient Name: DANN STALLINGS Date of : 1940 Sex: Female Report Date: 2020-04-25 Report Status: Finalized Findings [address] [address] XRay Report Signed Patient: DANN STALLINGS#: [id number] : 1940 Acct:[id number] Age/Sex: 79 / F ADM Date: 04/25/20 Loc: ED Attending Dr: Ordering Physician: JAYDEN PEREZ MD Date of Service: 04/25/20 Procedure(s): XR chest 1V ap Accession Number(s): [id number] cc: JAYDEN PEREZ MD Fluoro Time In Minutes: Chest single view INDICATION: Dyspnea. Positive. IMPRESSION: There is patchy airspace pneumonia primarily involving the lower lungs bilaterally. The upper lungs are grossly clear. Heart size is normal. Signer Name: Jules Mosqueda MD Signed: 04/25/2020 8:57 PM Workstation Name: [id number] Transcribed By: BC Dictated By: Jules Mosqueda MD Electronically Authenticated By: Jules Mosqueda MD Signed Date/Time: 04/25/202056 DD/ 55 Print Report Referring Physician: JAYDEN PEREZ Patient Name: DANN STALLINGS Date of : 1940 Sex: Female Report Date: 2020-04-25 Report Status: Finalized Findings [facility] [address] [place] [address] XRa y Report Signed Patient: DANN STALLINGS MR#: [id number] : 1940 Acct:[id number] Age/Sex: 79 / F ADM Date: 04/25/20 Loc: ED Attending Dr: Ordering Physician: JAYDEN PEREZ MD Date of Service: 04/25/20 Procedure(s): XR pelvis 1-2V Accession Number(s): [id number] cc: JAYDEN PEREZ MD Fluoro Time In Minutes: AP PELVIS, SINGLE VIEW INDICATION / CLINICAL INFORMATION: Pelvic pain, patient fell. COMPARISON: None available. FINDINGS: The bones are mildly diffusely demineralized. The left hip has a slightly unusual appearance and I am concerned there may be a very subtle impacted femoral neck fracture. This is not confidently identified, however, on this single view. The remainder of the pelvis does not show any additional suspicious area for fracture. There is no dislocation of either hip. IMPRESSION: Questionable possible fracture of the left femoral neck. Suggest dedicated left hip radiographs for further evaluation if there is clinical concern for left hip fracture. Signer Name: Tracy Sanderson MD Signed: 04/25/2020 8:57 PM Workstation Name: [id number] Transcribed By: JR Yun ictated By: Tracy Sanderson MD Electronically Authenticated By: Tracy Sanderson MD Signed Date/Time: 04/25/202056 DD/ 54 TD/TT: Print Report Referring Physician: JAYDEN PEREZ Patient Name: DANN STALLINGS Date of : 1940 Sex: Female Report Date: 2020-04-25 Report Status: [place] [address] Cat Scan Report Signed Patient: DANN STALLINGS MR#: [id number] : 1940 Acct:[id number] Age/Sex: 79 / F ADM Date: 04/25/20 Loc: ED Attending Dr: Ordering Physician: JAYDEN PEREZ MD Date of Service: 04/25/20 Procedure(s): CT lumbar spine wo con Accession Number(s): [id number] cc: JAYDEN PEREZ MD CT lumbar spine wo con INDICATION / CLINICAL INFORMATION: fall acute lower back pain. TECHNIQUE: Axial CT imaging of the lumbar spine was obtained without contrast. Coronal and sagittal reformatted imaging obtained and reviewed. All CT scans at this location are performed using CT dose reduction for ALARA by means of automated exposure control. COMPARISON: None available. FINDINGS: Axial CT imaging and reconstructions of the lumbar spine show a burst fracture of L3. There is no posterior displacement. There is mild loss of vertebral body height. No additional acute fractures are noted. Posterior alignment is normal. There is mild compression fracture of L1 which appears chronic. There is severe degen erative disc disease at L5-S1. Neural foramina remain patent bilaterally and diffusely. Mild central disc bulges are seen throughout the majority of the lumbar spine especially at L3-L4, L4-L5 and L5-S1. The bones are diffusely demineralized. IMPRESSION: 1. Burst fracture of L3 without significant displacement. There is no significant surrounding hematoma. No additional acute fractures noted. 2. Mild old compression fracture of L1. 3. Severe degenerative disc disease, L5-S1. Signer Name: Tracy Sanderson MD Signed: 04/25/2020 9:22 PM Workstation Name: [id number] Transcribed By: JR Dictated By: Tracy Sanderson MD Electronically Authenticated By: Tracy Sanderson MD Signed Date/Time: 04/25/202121 DD/ 17 TD/TT: Critical care attestation.: If time is entered above; I have spent that time in minutes in the direct care of this critically ill patient, excluding procedure time. ED Disposition Clinical Impression: COPD exacerbation, Hyperkalemia Fall Qualifiers: Encounter type: initial encounter Qualified Code(s): W19.XXXA - Unspecified fall, initial encounter Burst fracture of lumbar vertebra Qualifiers: Encounter type: initial encounter Fracture type: closed Qualified Code(s): S32.001A - Stable burst fracture of unspecified lumbar vertebra, initial encounter for closed fracture Chronic renal insufficiency Qualifiers: Chronic kidney disease stage: unspecified stage Qualified Code(s): N18.9 - Chronic kidney disease, unspecified Disposition: DC[facility]-02 [facility] IP Is pt being admited?: No Does the pt Need Aspirin: No Condition: Stable Instructions: Chronic Bronchitis (ED) Referrals: PRIMARY CARE, [Primary Care Provider] - 3-5 Days
--- NOTE | 2020-04-25 21:01 | XRay Report ---
Chest single view INDICATION: Dyspnea. Positive. IMPRESSION: There is patchy airspace pneumonia primarily involving the lower lungs bilaterally. The u pper lungs are grossly clear. Heart size is normal. Signer Name: Jules Mosqueda MD Signed: 04/25/2020 8:57 PM Workstation Name: [id number]
--- NOTE | 2020-04-25 21:02 | XRay Report ---
AP PELVIS, SINGLE VIEW INDICATION / CLINICAL INFORMATION: Pelvic pain, patient fell. COMPARISON: None available. FINDINGS: The bones are mildly diffusely demineralized. The left hip has a slightly unusual appearance and I am concerned there may be a very subtle impacted femoral neck fracture. This is not confidently identif ied, however, on this single view. The remainder of the pelvis does not show any additional suspiciou s area for fracture. There is no dislocation of either hip. IMPRESSION: Questionable possible fracture of the left femoral neck. Suggest dedicated left hip radiographs for f urther evaluation if there is clinical concern for left hip fracture. Signer Name: Tracy Sanderson MD Signed: 04/25/2020 8:57 PM Workstation Name: [id number]
[2020-04-25 21:03] VITALS: BP 179/90
[2020-04-25 21:12] LABS: Hematocrit 31.7 % (30.3-42.9)
--- NOTE | 2020-04-25 21:15 | Cat Scan Report ---
CT head without contrast INDICATION : Headache following fall. TECHNIQUE: Axial imaging performed from the skull apex through the skull base without the use of con trast. All CT examinations performed at this facility utilize dose modulation, iterative reconstruct ion or weight-based dosing, when appropriate, to reduce radiation dose to as low as reasonably achiev able. COMPARISON: 10/07/2019 FINDINGS: No acute intracranial hemorrhage or parenchymal abnormality. Mild diffuse cerebral atrophy is again noted, unchanged from the prior exam the ventricles are grossly unchanged in appearance.. Soft tissues including the orbits appear normal. No acute osseous abnormality. Sinuses and masto id air cells are clear. IMPRESSION: No acute abnormality. No significant change from the prior exam, as above. Signer Name: Jules Mosqueda MD Signed: 04/25/2020 9:11 PM Workstation Name: [id number]
--- NOTE | 2020-04-25 21:19 | Cat Scan Report ---
CT abdomen pelvis wo con INDICATION / CLINICAL INFORMATION: fall acute lower back pain. TECHNIQUE: Axial CT imaging of abdomen and pelvis was obtained without contrast. Coronal and sagittal reformatte d imaging obtained and reviewed. All CT scans at this location are performed using CT dose reduction for ALARA by means of automated exposure control. COMPARISON: Prior CT abdomen/pelvis, 07/10/2014 FINDINGS: CT abdomen without contrast demonstrates normal appearance of the liver, spleen, pancreas, kidneys, a nd adrenal glands. Gallbladder is unremarkable. No intrarenal calculi or hydronephrosis identified. S mall hiatal hernia is present. No free air or free fluid. CT pelvis without contrast does not demonstrate any pelvic mass, free fluid, or focal inflammatory ch genevieve. Prior hysterectomy. The appendix is not confidently identified but I do not see any secondary s igns of appendicitis in the right lower quadrant. Scattered diverticulosis is seen throughout the vis ualized colon, most severe in the sigmoid and distal descending colon. The remainder of the GI tract is unremarkable. Visualized lung bases show bibasilar bronchiectasis but no acute superimposed pulmonary or pleural di sease. There is large amount of calcified plaque throughout the abdominal aorta and common iliac arteries bu t no evidence of aortic aneurysm. Review of osseous structures demonstrates a burst fracture of L3. There has not any significant surro unding hematoma. Posterior alignment remains normal. There is old mild compression fracture of L1. Th ere is significant degenerative change throughout the spine. No additional fractures are identified. IMPRESSION: 1. Burst fracture of L3 vertebral body without abnormal displacement. There is only mild loss of vert ebral body height and no significant surrounding hematoma. 2. No acute soft tissue abnormality within the abdomen or pelvis on this noncontrasted exam. 3. Incidental findings of diverticulosis and small hiatal hernia. 4. Large amount of calcified plaque throughout the abdominal aorta and common iliac arteries. Signer Name: Tracy Sanderson MD Signed: 04/25/2020 9:15 PM Workstation Name: [id number]
--- NOTE | 2020-04-25 21:26 | Cat Scan Report ---
CT lumbar spine wo con INDICATION / CLINICAL INFORMATION: fall acute lower back pain. TECHNIQUE: Axial CT imaging of the lumbar spine was obtained without contrast. Coronal and sagittal reformatted imaging obtained and reviewed. All CT scans at this location are performed using CT dose reduction f or ALARA by means of automated exposure control. COMPARISON: None available. FINDINGS: Axial CT imaging and reconstructions of the lumbar spine show a burst fracture of L3. There is no pos terior displacement. There is mild loss of vertebral body height. No additional acute fractures are noted. Posterior alignment is normal. There is mild compression fra cture of L1 which appears chronic. There is severe degenerative disc disease at L5-S1. Neural foramina remain patent bilaterally and dif fusely. Mild central disc bulges are seen throughout the majority of the lumbar spine especially at L 3-L4, L4-L5 and L5-S1. The bones are diffusely demineralized. IMPRESSION: 1. Burst fracture of L3 without significant displacement. There is no significant surrounding hematom a. No additional acute fractures noted. 2. Mild old compression fracture of L1. 3. Severe degenerative disc disease, L5-S1. Signer Name: Tracy Sanderson MD Signed: 04/25/2020 9:22 PM Workstation Name: [email or web address]
[2020-04-25 21:32] LABS: BUN/Creatinine Ratio 11; Blood Urea Nitrogen 24 mg/dL (7-17); Calcium 8.9 mg/dL (8.4-10.2)
[2020-04-25] MEDS ORDERED: SODIUM POLYSTYRENE 15 GM/60 ML ORAL LIQD PO ONE (21:35)
[2020-04-25 21:37] LABS: Bilirubin,Urine NEG (Negative); Blood,Urine SM (Negative); Color,Urine Straw (Yellow); Mucus,Urine FEW /HPF; Protein,Urine <15 mg/dL mg/dL (Negative); Urobilinogen,Urine < 2.0 mg/dL (<2.0)
[2020-04-25] MEDS ORDERED: MORPHINE 4 MG/1 ML INJ IV ONE (21:51)
--- NOTE | 2020-04-25 21:55 | XRay Report ---
LEFT FEMUR, 4 VIEWS INDICATION / CLINICAL INFORMATION: fall back pain left femur fx. COMPARISON: None available. FINDINGS: No fracture of the left femur is identified. The femur is intact. No soft tissue abnormality. IMPRESSION: No evidence of femoral fracture. Signer Name: Tracy Sanderson MD Signed: 04/25/2020 9:51 PM Workstation Name: [id number]
== END 2020-04-25 23:00 | disposition short-term general hospital (02) ==
LOC: ED 18:39
DX: S32.001A Stable burst fracture of unspecified lumbar vertebra, initial encounter for closed fracture (principal); J44.1 Chronic obstructive pulmonary disease with (acute) exacerbation; K57.90 Diverticulosis of intestine, part unspecified, without perforation or abscess without bleeding; K44.9 Diaphragmatic hernia without obstruction or gangrene; E87.5 Hyperkalemia; I13.0 Hypertensive heart and chronic kidney disease with heart failure and stage 1 through stage 4 chronic kidney disease, or unspecified chronic kidney disease; N18.9 Chronic kidney disease, unspecified; I50.9 Heart failure, unspecified; M19.90 Unspecified osteoarthritis, unspecified site; M79.18 Myalgia, other site; R51 Headache; W18.30XA Fall on same level, unspecified, initial encounter; Y93.89 Activity, other specified; Y92.89 Other specified places as the place of occurrence of the external cause; Y99.8 Other external cause status
CPT/HCPCS: 36415; 70450; 71045; 72131; 72170; 73552; 74176; 80048; 81001; 82550; 83735; 84443; 85014; 85018; 85049; 93005; 94640; 96374; 99285; J2270; 94644

== ENCOUNTER 2020-07-06 19:54 | Observation (INO) | payer MEDICARE ==
[2020-07-06] MEDS ORDERED: MORPHINE 4 MG/1 ML INJ IV ONE (21:24)
[2020-07-06] MEDS ORDERED: ONDANSETRON 4 MG/2 ML INJ IV ONE (21:24)
[2020-07-06] MEDS ORDERED: MAGNESIUM SULFATE 1 GM in SODIUM CHLORIDE 0.9% 50 ML IV ONE (21:24)
[2020-07-06] MEDS ORDERED: ALBUTEROL 2.5 MG/3 ML NEBU IH ONE (21:24)
[2020-07-06] MEDS ORDERED: methylPREDNISolone Sod Succinate 125 MG/2 ML INJ IV ONE (21:24)
[2020-07-06] MEDS ORDERED: IPRATROPIUM 0.02% NEBU 2.5 ML IH ONE (21:24)
[2020-07-06 22:19] LABS: Creatine Kinase MB 1.3 ng/mL (0.0-4.0)
[2020-07-06 22:20] LABS: Alanine Aminotransferase 8 units/L (7-56); Albumin 3.8 g/dL (3.9-5); BUN/Creatinine Ratio 8; Blood Urea Nitrogen 16 mg/dL (7-17); Calcium 8.5 mg/dL (8.4-10.2); Hemolysis Index 0
[2020-07-06 22:28] LABS: Basophils % (Auto) 0.9 % (0.0-1.8); Eosinophils # (Auto) 0.2 K/mm3 (0.0-0.4); Hemoglobin 8.1 gm/dl (10.1-14.3); Lymphocytes # (Auto) 1.1 K/mm3 (1.2-5.4); Lymphocytes % (Auto) 24.8 % (13.4-35.0); Mean Corpuscular HGB Conc 33 % (30-34); Mean Corpuscular Volume 91 fl (79-97); Monocytes # (Auto) 0.5 K/mm3 (0.0-0.8); Monocytes % (Auto) 10.8 % (0.0-7.3); Platelet Count 254 K/mm3 (140-440); Red Blood Count 2.75 M/mm3 (3.65-5.03); Red Cell Distribution Width 17.2 % (13.2-15.2)
--- NOTE | 2020-07-06 22:51 | XRay Report ---
CHEST 1 VIEW INDICATION: Syncope COMPARISON: 04/25/2020 FINDINGS: SUPPORT DEVICES: Pacing device overlying left hemithorax with electrode tips right atrium and right v entricle HEART / MEDIASTINUM: No significant abnormality. LUNGS / PLEURA: No significant pulmonary or pleural abnormality. No pneumothorax. ADDITIONAL FINDINGS: IMPRESSION: 1. No acute cardiopulmonary disease Signer Name: Eric Hernandez MD Signed: 07/06/2020 10:47 PM Workstation Name: [id number]
--- NOTE | 2020-07-06 22:51 | XRay Report ---
CLINICAL DATA: fall, pain TECHNICAL DATA: AP and lateral views of both hip were obtained. FINDINGS: Bones are osteopenic.. Articular spaces are well maintained. No evidence of a dislocation. There is n o evidence of fracture. There is no radiographic evidence of hip effusion. IMPRESSION: Osteopenia, no evidence of fracture Signer Name: Eric Hernandez MD Signed: 07/06/2020 10:46 PM Workstation Name: [id number]
--- NOTE | 2020-07-06 22:52 | XRay Report ---
LUMBOSACRAL SPINE 3 VIEWS INDICATION / CLINICAL INFORMATION: fall, pain. COMPARISON: CT lumbar spine 04/25/2020 FINDINGS: VERTEBRAE: Chronic fracture of L3 which appears similar when compared to 04/25/2020 CT lumbar spine. T here is compression deformity of the superior endplate with height loss as well as fracture line exte nding craniocaudad through the anterior third of the vertebral body. No definite acute fracture is id entified. No significant malalignment. DISC SPACES / FACET JOINTS:Severe disc space narrowing at L5-S1. Significant degenerative facet arthr osis throughout the present lumbar spine, worst at L4-5 and L5-S1. PARASPINAL SOFT TISSUES:Severe atherosclerotic calcification. ADDITIONAL FINDINGS: None. Signer Name: Magdaleno Mckoy MD Signed: 07/06/2020 10:47 PM Workstation Name: [email or web address]
--- NOTE | 2020-07-06 22:53 | Cat Scan Report ---
CT HEAD WITHOUT CONTRAST HISTORY: Syncopal episode COMPARISON: 04/25/2020 TECHNIQUE: CT imaging of the head was performed in the axial, sagittal, and coronal projections and bone algori thm in axial projection in the soft tissue algorithm. All CT scans at this location are performed using CT dose reduction for ALARA by means of automated e xposure control. CONTRAST: None. FINDINGS: Exam is compared to 04/25/2020 Cerebral and Cerebellar Hemispheres: Mild deep white matter disease. Mild diffuse cerebral atrophy No evidence of mass or mass effect. No midline shift. No acute hemorrhage. No acute cortical infarct ion. No extra-axial fluid collection. Basal ganglia calcifications present Ventricles: Normal in size and configuration for age. Osseous Structures: No significant abnormality. Visualized Paranasal Sinuses: No significant abnormality. Additional Findings: None IMPRESSION: 1. No acute intracranial abnormality. NOTE: Acute infarct may not be visible by noncontrast CT. Signer Name: Eric Hernandez MD Signed: 07/06/2020 10:48 PM Workstation Name: [id number]
--- NOTE | 2020-07-06 23:12 | Emergency Department Report ---
ED Syncope HPI - General Chief Complaint: Fall Stated Complaint: RT SIDED PAIN Time Seen by Provider: 07/06/20 21:08 Source: patient, old records Exam Limitations: no limitations - History of Present Illness Initial Comments: 80-year-old female with a past medical history of COPD on home oxygen, CHF, CVA, hypertension, and chronic renal sufficiency presents to the hospital complains of syncopal episode 2 days ago. Patient states had a syncopal episode at home while walking and woke up with back and bilateral hip pain. Patient also complains of persistent mild headache. She denies nausea, vomiting, focal weakness or numbness. Patient is however having trouble walking secondary to hip and back pain. Patient was able to walk without assistive device prior to the fall 2 days ago. Patient has been having increased shortness of breath and wheezing despite bronchodilator use. Patient states she was recently discharged from a rehab facility after prolonged admission at [facility] for fall/syncope 2 months. Previous record reviewed and patient did have a fall in March with the following CT result IMPRESSION: 1. Burst fracture of L3 without significant displacement. There is no significant surrounding hematoma. No additional acute fractures noted. 2. Mild old compression fracture of L1. 3. Severe degenerative disc disease, L5-S1. Signer Name: Tracy Sanderson MD Signed: 04/25/2020 9:22 PM Workstation Name: [id number] Transcribed By: JR Dictated By: Tracy Sanderson MD Electronically Authenticated By: Tracy Sanderson MD Signed Date/Time: 04/25/202121 DD/ 17 TD/TT: Patient was then transferred to [facility] - Related Data Allergies/Adverse Reactions: Allergies aspirin Allergy (Verified 03/15/18 13:11) Hives Penicillins Allergy (Verified 03/15/18 13:11) Hives Sulfa (Sulfonamide Antibiotics) Allergy (Verified 03/15/18 13:11) Hives Home Medications: Ambulatory Orders ALBUTEROL Inhaler(NF) [VENTOLIN Inhaler(NF)] 2 puff IH Q4H PRN #1 inha 11/01/18 Budesonide/Formoterol Fumarate [Symbicort 160-4.5 Mcg Inhaler] 2 puff IH DAILY #1 hfa.aer.ad 11/01/18 Famotidine [Pepcid] 20 mg PO DAILY #30 tablet 11/01/18 Ipratropium/Albuterol Sulfate [DUONEB *Not for PRN Use*] 1 ampul IH TIDRT PRN #30 ampul.neb 11/01/18 Mirtazapine [Remeron 30mg TAB] 30 mg PO QHS PRN #30 tablet 11/01/18 Sodium Polystyrene Sulfonate [Kalexate] 15 gm PO 3XW 03/26/20 traMADoL [Ultram] 50 mg PO Q6HR PRN 03/26/20 Azithromycin [Zithromax TAB] 250 mg PO QDAY #6 tablet 03/28/20 Prednisone [predniSONE 10 mg (6-Day Pack, 21 Tabs)] 10 mg PO .TAPER #1 tab.ds.pk 03/28/20 ED Review of Systems ROS: Stated complaint: RT SIDED PAIN Other details as noted in HPI Comment: All other systems reviewed and negative ED Past Medical Hx - Past Medical History Previous Medical History?: Yes Hx Hypertension: Yes Hx CVA: Yes (x 2) Hx Heart Attack/AMI: No Hx Congestive Heart Failure: Yes Hx Diabetes: No Hx Deep Vein Thrombosis: No Hx Pulmonary Embolism: No Hx Renal Disease: Yes Hx Arthritis: Yes Hx Kidney Stones: No Hx Asthma: No Hx COPD: Yes Hx Tuberculosis: No Hx HIV: No Additional medical history: Chronic Bronchitis - Surgical History Past Surgical History?: Yes Hx Coronary Stent: No Hx Open Heart Surgery: Yes Hx Pacemaker: Yes Hx Internal Defibrillator: No Hx Cholecystectomy: No Hx Appendectomy: No Hx Breast Surgery: No Additional Surgical History: Right Knee Surgery , demand pacemaker (90's). Hyst. cataract removal in both eyes, - Social History Smoking Status: Never Smoker Substance Use Type: None - Medications Home Medications: Home Medications Medication Instructions Recorded Confirmed Last Taken Type ALBUTEROL Inhaler(NF) [VENTOLIN 2 puff IH Q4H PRN #1 inha 11/01/18 03/26/20 08/07/19 Rx Inhaler(NF)] Budesonide/Formoterol Fumarate 2 puff IH DAILY #1 hfa.aer.ad 11/01/18 03/26/20 08/07/19 Rx [Symbicort 160-4.5 Mcg Inhaler] Famotidine [Pepcid] 20 mg PO DAILY #30 tablet 11/01/18 03/26/20 08/07/19 Rx Ipratropium/Albuterol Sulfate 1 ampul IH TIDRT PRN #30 ampul.neb 11/01/18 03/26/20 08/07/19 Rx [DUONEB *Not for PRN Use*] Mirtazapine [Remeron 30mg TAB] 30 mg PO QHS PRN #30 tablet 11/01/18 03/26/20 08/07/19 Rx Sodium Polystyrene Sulfonate 15 gm PO 3XW 03/26/20 03/26/20 Unknown History [Kalexate] traMADoL [Ultram] 50 mg PO Q6HR PRN 03/26/20 03/26/20 Unknown History Azithromycin [Zithromax TAB] 250 mg PO QDAY #6 tablet 03/28/20 Unknown Rx Prednisone [predniSONE 10 mg 10 mg PO .TAPER #1 tab.ds.pk 03/28/20 Unknown Rx (6-Day Pack, 21 Tabs)] ED Physical Exam - General Limitations: Physical Limitation - Other Other exam information: General: Mild respiratory distress Head: Atraumatic Eyes: normal appearance ENT: Moist mucous membranes Neck: Normal appearance, no midline tenderness Chest: Bilateral wheezing, tachypnea, mild accessory muscle use CV: Regular rate and rhythm Abdomen: Soft, normal bowel sounds, nontender, nondistended, no rebound or guarding Back: Superficial scratches to the upper back. Midline tenderness of the lower lumbar spine extending to the sacrum. Pain to both hips but full range of motion without deformity. Extremity: Normal inspection, full range of motion Neuro: Alert O x 3, no facial asymmetry, speech clear, 5/5 upper and lower extremity strength with grossly intact sensation Psych: Appropriate behavior Skin: No rash ED Course Vital Signs 07/06/20 07/06/20 07/06/20 20:05 20:10 20:16 Temperature 99.1 F Pulse Rate 101 H 102 H 100 H Pulse Rate [ Anterior Throughout] Respiratory 22 33 H 34 H Rate Respiratory Rate [Anterior Throughout] Blood Pressure 122/85 Blood Pressure 122/85 [left arm] O2 Sat by Pulse Oximetry 07/06/20 07/06/20 07/06/20 20:19 20:42 20:46 Temperature Pulse Rate 103 H 98 H Pulse Rate [ Anterior Throughout] Respiratory 25 H 28 H Rate Respiratory Rate [Anterior Throughout] Blood Pressure 145/84 Blood Pressure [left arm] O2 Sat by Pulse 99 100 Oximetry 07/06/20 07/06/20 07/06/20 21:00 21:16 21:30 Temperature Pulse Rate 99 H 105 H 105 H Pulse Rate [ Anterior Throughout] Respiratory 17 32 H 25 H Rate Respiratory Rate [Anterior Throughout] Blood Pressure 144/71 144/71 167/104 Blood Pressure [left arm] O2 Sat by Pulse 99 92 Oximetry 07/06/20 07/06/20 07/06/20 22:00 22:18 22:30 Temperature Pulse Rate 99 H 97 H Pulse Rate [ Anterior Throughout] Respiratory 22 13 Rate Respiratory Rate [Anterior Throughout] Blood Pressure 167/104 167/104 167/104 Blood Pressure [left arm] O2 Sat by Pulse 100 100 Oximetry 07/06/20 07/06/20 07/06/20 22:46 23:00 23:01 Temperature Pulse Rate 90 94 H Pulse Rate [ 90 Anterior Throughout] Respiratory 22 22 Rate Respiratory 19 Rate [Anterior Throughout] Blood Pressure 167/104 167/104 Blood Pressure [left arm] O2 Sat by Pulse 100 100 Oximetry 07/06/20 07/06/20 07/06/20 23:16 23:30 23:46 Temperature Pulse Rate 105 H 101 H 92 H Pulse Rate [ Anterior Throughout] Respiratory 19 18 20 Rate Respiratory Rate [Anterior Throughout] Blood Pressure 167/104 167/104 167/104 Blood Pressure [left arm] O2 Sat by Pulse 95 93 92 Oximetry 07/07/20 00:00 Temperature Pulse Rate 92 H Pulse Rate [ Anterior Throughout] Respiratory 19 Rate Respiratory Rate [Anterior Throughout] Blood Pressure 167/104 Blood Pressure [left arm] O2 Sat by Pulse 96 Oximetry - Reevaluation(s) Reevaluation #1: 07/06/20 23:43 Patient is initial imaging studies unremarkable however, given history of fracture status post fall in March CT lumbar spine and pelvis have been ordered. ED Medical Decision Making - Lab Data Result diagrams: 07/06/20 21:37 07/06/20 21:37 Lab Results 07/06/20 07/06/20 Range/Units 21:37 21:37 WBC 4.4 L (4.5-11.0) K/mm3 RBC 2.75 L (3.65-5.03) M/mm3 Hgb 8.1 L (10.1-14.3) gm/dl Hct 25.0 L (30.3-42.9) % MCV 91 (79-97) fl MCH 29 (28-32) pg MCHC 33 (30-34) % RDW 17.2 H (13.2-15.2) % Plt Count 254 (140-440) K/mm3 Lymph % (Auto) 24.8 (13.4-35.0) % [place] % (Auto) 10.8 H (0.0-7.3) % Eos % (Auto) 5.0 H (0.0-4.3) % Baso % (Auto) 0.9 (0.0-1.8) % Lymph # 1.1 L (1.2-5.4) K/mm3 [place] # 0.5 (0.0-0.8) K/mm3 Eos # 0.2 (0.0-0.4) K/mm3 Baso # 0.0 (0.0-0.1) K/mm3 Seg Neutrophils % 58.5 (40.0-70.0) % Seg Neutrophils # 2.6 (1.8-7.7) K/mm3 Sodium 142 (137-145) mmol/L Potassium 5.6 H (3.6-5.0) mmol/L Chloride 103.6 (98-107) mmol/L Carbon Dioxide 26 (22-30) mmol/L Anion Gap 18 mmol/L BUN 16 (7-17) mg/dL Creatinine 2.1 H (0.6-1.2) mg/dL Estimated GFR 27 ml/min BUN/Creatinine Ratio 8 % Glucose 82 (65-100) mg/dL Calcium 8.5 (8.4-10.2) mg/dL Total Bilirubin 0.20 (0.1-1.2) mg/dL AST 14 (5-40) units/L ALT 8 (7-56) units/L Alkaline Phosphatase 78 (35-129) units/L Total Creatine Kinase 110 (30-135) units/L CK-MB (CK-2) 1.3 (0.0-4.0) ng/mL CK-MB (CK-2) Rel Index 1.1 (0-4) Troponin T < 0.010 (0.00-0.029) ng/mL Total Protein 6.3 (6.3-8.2) g/dL Albumin 3.8 L (3.9-5) g/dL Albumin/Globulin Ratio 1.5 % - Radiology Data Radiology results: report reviewed CHEST 1 VIEW INDICATION: Syncope COMPARISON: 04/25/2020 FINDINGS: SUPPORT DEVICES: Pacing device overlying left hemithorax with electrode tips right atrium and right ventricle HEART / MEDIASTINUM: No significant abnormality. LUNGS / PLEURA: No significant pulmonary or pleural abnormality. No pneumothor ax. ADDITIONAL FINDINGS: IMPRESSION: 1. No acute cardiopulmonary disease LUMBOSACRAL SPINE 3 VIEWS INDICATION / CLINICAL INFORMATION: fall, pain. COMPARISON: CT lumbar spine 04/25/2020 FINDINGS: VERTEBRAE: Chronic fracture of L3 which appears similar when compared to 04/25/2020 CT lumbar spine. There is compression deformity of the superior endplate with height loss as well as fracture line extending craniocaudad through the anterior third of the vertebral body. No definite acute fracture is identified. No significant malalignment. DISC SPACES / FACET JOINTS:Severe disc space narrowing at L5-S1. Significant degenerative facet arthrosis throughout the present lumbar spine, worst at L4-5 and L5-S1. PARASPINAL SOFT TISSUES:Severe atherosclerotic calcification. ADDITIONAL FINDINGS: None. fall, pain TECHNICAL DATA: AP and lateral views of both hip were obtained. FINDINGS: Bones are osteopenic.. Articular spaces are well maintained. No evidence of a d islocation. There is no evidence of fracture. There is no radiographic evidence of hip effusion. IMPRESSION: Osteopenia, no evidence of fracture CT HEAD WITHOUT CONTRAST HISTORY: Syncopal episode COMPARISON: 04/25/2020 TECHNIQUE: CT imaging of the head was performed in the axial, sagittal, and coronal projections and bone algorithm in axial projection in the soft tissue algorithm. All CT scans at this location are performed using CT dose reduction for ALARA by means of automated exposure control. CONTRAST: None. FINDINGS: Exam is compared to 04/25/2020 Cerebral and Cerebellar Hemispheres: Mild deep white matter disease. Mild diffuse cerebral atrophy No evidence of mass or mass effect. No midline shift. No acute hemorrhage. No acute cortical infarction. No extra-axial fluid collection. Basal ganglia calcifications present Ventricles: Normal in size and configuration for age. Osseous Structures: No significant abnormality. Visualized Paranasal Sinuses: No significant abnormality. Additional Findings: None IMPRESSION: 1. No acute intracranial abnormality. NOTE: Acute infarct may not be visible by noncontrast CT. CLINICAL DATA: Pt states back pain after fall, recent fracture (03/2020) TECHNICAL DATA: CT imaging of the lumbar spine was performed from reconstructed images of the CT abdomen pelvis. Images were reconstructed in the axial, coronal, and sagittal imaging planes. All CT scans at this location are performed using CT dose reduction for ALARA by means of automated exposure control. FINDINGS: Exam is compared to 04/25/2020 L1-2: Slight wedging of the L1 vertebral body is again noted essentially unchanged as compared to exam of 04/25/2020 The thecal sac is normal. No evidence of disc herniation or disc bulge. Facets within normal limits. No evidence of spinal stenosis. L2-3: Minimal intervertebral disc space narrowing is present with anterior and posterior osteophytes. The thecal sac is normal. Mild disc bulge is present. Mild facet degenerative changes are present with associated ligament flavum hypertrophy. Mild narrowing AP diameter spinal canal L3-4: Progressive compression of the burst fracture L3 noted. No significant change in the AP diameter of the spinal canal. Facet degenerative changes with associated ligament flavum hypertrophy again identified No evidence of spinal stenosis. L4-5: Mild intervertebral disc space narrowing is present with minimum anterior and posterior osteophytes. Diffuse disc bulge is present.. Mild facet degenerative changes are present with associated ligament flavum hypertrophy. L5-S1: Marked intervertebral disc space narrowing is present with anterior and posterior osteophytes. The thecal sac is normal. No evidence of disc herniation or disc bulge. Mild facet degenerative changes are present with associated ligament flavum hypertrophy. No evidence of spinal stenosis. IMPRESSION: 1. Progression of decreased height L3 vertebral body, involving first fracture L3 without significant compromise of the thecal sac at that level 2. Significant stenosis L4-5 unchanged from previous exam 3. Mild spinal stenosis L2-3 unchanged from previous exam CLINICAL DATA: Pt states hip pain after fall, recent fracture (03/2020) TECHNICAL DATA: CT imaging of pelvis without IV nonionic contrast infusion was performed. Imaging was presented in the axial, coronal and sagittal imaging planes.All CT scans at this location are performed using CT dose reduction for ALARA by means of automated exposure control. FINDINGS Soft tissues are normal. Bony structures are intact. Portion of the gastrointestinal tract that is imaged and is within normal limits. No evidence of a hip fracture. IMPRESSION: Normal CT of the pelvis. - Medical Decision Making Patient presents to the hospital with syncopal episode with fall. No acute muscle skeletal injury noted. Progression of L3 burst fracture noted on repeat CT lumbar spine today. Patient did have wheezing and required treatment for acute COPD exacerbation. Patient will be admitted for syncope work-up and treatment of COPD. Patient also has mild hyperkalemia and did receive albuterol 10 mg and Lasix 20 mg IV in addition to normal saline Critical Care Time: No Critical care attestation.: If time is entered above; I have spent that time in minutes in the direct care of this critically ill patient, excluding procedure time. ED Disposition Clinical Impression: COPD exacerbation, Syncope, Hyperkalemia, Chronic renal insufficiency Lumbar burst fracture Qualifiers: Encounter type: subsequent encounter Disposition: OP ADMIT IP TO THIS HOSP Is pt being admited?: Yes Condition: Stable Time of Disposition: 01:31 (Dr. Nino/hospitalist)
[2020-07-06] MEDS ORDERED: FUROSEMIDE 20 MG/2 ML INJ IV ONE (23:18)
[2020-07-06] MEDS ORDERED: SODIUM CHLORIDE 0.9% 1000 ML 1,000 ML IV ONE (23:18)
--- NOTE | 2020-07-07 01:23 | Cat Scan Report ---
CLINICAL DATA: Pt states back pain after fall, recent fracture (03/2020) TECHNICAL DATA: CT imaging of the lumbar spine was performed from reconstructed images of the CT abdomen pelvis. Imag es were reconstructed in the axial, coronal, and sagittal imaging planes. All CT scans at this location are performed using CT dose reduction for ALARA by means of automated e xposure control. FINDINGS: Exam is compared to 04/25/2020 L1-2: Slight wedging of the L1 vertebral body is again noted essentially unchanged as compared to exa m of 04/25/2020 The thecal sac is normal. No evidence of disc herniation or disc bulge. Facets withi n normal limits. No evidence of spinal stenosis. L2-3: Minimal intervertebral disc space narrowing is present with anterior and posterior osteophytes. The thecal sac is normal. Mild disc bulge is present. Mild facet degenerative changes are present wi th associated ligament flavum hypertrophy. Mild narrowing AP diameter spinal canal L3-4: Progressive compression of the burst fracture L3 noted. No significant change in the AP diamete r of the spinal canal. Facet degenerative changes with associated ligament flavum hypertrophy again i dentified No evidence of spinal stenosis. L4-5: Mild intervertebral disc space narrowing is present with minimum anterior and posterior osteoph ytes. Diffuse disc bulge is present.. Mild facet degenerative changes are present with associated lig ament flavum hypertrophy. L5-S1: Marked intervertebral disc space narrowing is present with anterior and posterior osteophytes . The thecal sac is normal. No evidence of disc herniation or disc bulge. Mild facet degenerative ch anges are present with associated ligament flavum hypertrophy. No evidence of spinal stenosis. IMPRESSION: 1. Progression of decreased height L3 vertebral body, involving first fracture L3 without significant compromise of the thecal sac at that level 2. Significant stenosis L4-5 unchanged from previous exam 3. Mild spinal stenosis L2-3 unchanged from previous exam Signer Name: Eric Hernandez MD Signed: 07/07/2020 1:18 AM Workstation Name: [email or web address]
--- NOTE | 2020-07-07 01:24 | Cat Scan Report ---
CLINICAL DATA: Pt states hip pain after fall, recent fracture (03/2020) TECHNICAL DATA: CT imaging of pelvis without IV nonionic contrast infusion was performed. Imaging was presented in th e axial, coronal and sagittal imaging planes.All CT scans at this location are performed using CT dos e reduction for ALARA by means of automated exposure control. FINDINGS Soft tissues are normal. Bony structures are intact. Portion of the gastrointestinal tract that is im aged and is within normal limits. No evidence of a hip fracture. IMPRESSION: Normal CT of the pelvis. Signer Name: Eric Hernandez MD Signed: 07/07/2020 1:19 AM Workstation Name: [id number]
[2020-07-07 02:07] LABS: Bacteria,Urine 1+ /HPF (Negative); Bilirubin,Urine NEG (Negative); Blood,Urine SM (Negative); Color,Urine Yellow (Yellow); Mucus,Urine FEW /HPF; Protein,Urine <15 mg/dL mg/dL (Negative); Urobilinogen,Urine < 2.0 mg/dL (<2.0)
[2020-07-07] MEDS ORDERED: SODIUM CHLORIDE 0.9% 1000 ML 1,000 ML IV SCH (02:30)
[2020-07-07] MEDS ORDERED: ONDANSETRON 4 MG/2 ML INJ IV PRN (02:35)
[2020-07-07] MEDS ORDERED: SODIUM POLYSTYRENE 15 GM/60 ML ORAL LIQD PO ONE (03:00)
--- NOTE | 2020-07-07 03:35 | History and Physical Report ---
History of Present Illness Date of examination: 07/07/20 Date of admission: 07/07/20 01:33 Chief complaint: syncope History of present illness: 80 year old female presenting with syncopal attack with a fall at home 2 days prior to presentation . Patient was walking and felt dizzy with fainting attack. There was no antecedent history of chest pain or shortness of breath. Patient woke up with pain in the hips and left flank areas. Past History Past Medical History: arthritis, hypertension, renal failure, stroke, other (SY NCOPE, BRONCHITIS) Medications and Allergies Allergies Allergy/AdvReac Type Severity Reaction Status Date / Time aspirin Allergy Hives Verified 03/15/18 13:11 Penicillins Allergy Hives Verified 03/15/18 13:11 Sulfa (Sulfonamide Allergy Hives Verified 03/15/18 13:11 Antibiotics) Home Medications Medication Instructions Recorded Confirmed Last Taken Type ALBUTEROL Inhaler(NF) [VENTOLIN 2 puff IH Q4H PRN #1 inha 11/01/18 07/07/20 08/07/19 Rx Inhaler(NF)] Budesonide/Formoterol Fumarate 2 puff IH DAILY #1 hfa.aer.ad 11/01/18 07/07/20 08/07/19 Rx [Symbicort 160-4.5 Mcg Inhaler] Famotidine [Pepcid] 20 mg PO DAILY #30 tablet 11/01/18 07/07/20 08/07/19 Rx Ipratropium/Albuterol Sulfate 1 ampul IH TIDRT PRN #30 ampul.neb 11/01/18 07/07/20 08/07/19 Rx [DUONEB *Not for PRN Use*] Mirtazapine [Remeron 30mg TAB] 30 mg PO QHS PRN #30 tablet 11/01/18 07/07/20 08/07/19 Rx Sodium Polystyrene Sulfonate 15 gm PO 3XW 03/26/20 07/07/20 Unknown History [Kalexate] traMADoL [Ultram] 50 mg PO Q6HR PRN 03/26/20 07/07/20 Unknown History Azithromycin [Zithromax TAB] 250 mg PO QDAY #6 tablet 03/28/20 07/07/20 Unknown Rx Prednisone [predniSONE 10 mg 10 mg PO .TAPER #1 tab.ds.pk 03/28/20 07/07/20 Unknown Rx (6-Day Pack, 21 Tabs)] Active Meds: Active Medications Albuterol/Ipratropium (Duoneb *Not For Prn Use*) 1 ampul IH QIDRT [facility] Heparin Sodium (Porcine) (Heparin) 5,000 unit SUB-Q Q8HR [facility] Sodium Chloride (Nacl 0.9% 1000 Ml) 1,000 mls @ 75 mls/hr IV DIRECT MANE Levofloxacin/Dextrose (Levaquin 750mg/150ml) 750 mg in 150 mls @ 100 mls/hr IV Q48HR [facility]; Protocol Methylprednisolone Sodium Succinate (Solu-Medrol) 60 mg IV Q8HR MANE Morphine Sulfate (Morphine) 2 mg IV Q4H PRN PRN Reason: Pain, Moderate (4-6) Ondansetron HCl (Zofran) 4 mg IV Q8H PRN PRN Reason: Nausea And Vomiting Review of Systems Constitutional: no weight loss, no weight gain, no fever, no chills, no sweats, no night sweats, no anorexia, no fatigue, no weakness, no malaise, no lethargy Eyes: bilateral: other (NO BILATYERAL EYE SYMPTOMS) Ears, nose, mouth and throat: no ear pain, no ear discharge Breasts: deferred Cardiovascular: syncope, lightheadedness, no chest pain, no orthopnea, no palpitations, no rapid/irregular heart beat, no edema, no shortness of breath Respiratory: no cough, no shortness of breath, no dyspnea on exertion Gastrointestinal: no abdominal pain, no nausea, no vomiting, no diarrhea, no constipation, no change in bowel habits, no hematemesis, no melena, no hematochezia, no loss of appetite, no early satiety, no heartburn, no indige stion Genitourinary Female: flank pain, no dyspareunia, no pelvic pain, no menorrhagia, no dysuria, no urinary frequency, no stress incontinence, no post void dribbling, no urge incontinence, no mixed incontinence Menstruation: no currently menstrual, no premenarcheal, no post hysterectomy, no ammenorrhea, no ammenorrhea on BC, no period normal, no period heavy, no period spotting, no period light Rectal: no pain, no hemorrhoids Musculoskeletal: low back pain, myalgias, no neck stiffness, no neck pain, no shooting arm pain, no arm numbness/tingling, no shooting leg pain, no morning stiffness, no muscle cramps Integumentary: rash, pruritis, redness, no wounds, no jaundice, no growths, no bullae, no lesions, no darkening of skin, no depigmentation, no acne, no drynes s, no color changes, no brittle nails, no striae, no hirsutism Neurological: syncope, headaches, no paralysis, no weakness, no parathesias, no numbness, no tingling, no seizures, no tremors, no ataxia, no migraines, no convulsions, no change in speech, no change in mentation, no confusion, no memory loss, no changes in smell/taste, no double vision, no loss of vision Psychiatric: no anxiety, no insomnia, no hypersomnia, no change in appetite, no change in libido, no suicidal ideation, no disorientation, no hallucinations, no depression, no hopelessness, no confusion Endocrine: no cold intolerance, no heat intolerance, no polyphagia, no excessive thirst, no polydipsia, no polyuria, no nocturia, no excessive sweating, no increase in ring/shoe/hat size, no proptosis, no deepening of the voice, no thyroid mass, no palpatations, no high blood sugars, no low blood sugars, no recent glucocorticoid use Hematologic/Lymphatic: no easy bruising, no easy bleeding, no lymphadenopathy, no lymphedema Exam - Constitutional Vitals: Temp Pulse Resp BP Pulse Ox 99.1 F 103 H 18 129/71 100 07/06/20 20:05 07/07/20 02:00 07/07/20 02:00 07/07/20 02:00 07/07/20 02:00 General appearance: Present: mild distress - EENT Eyes: Present: PERRL, EOM intact ENT: hearing intact, clear oral mucosa, dentition normal - Neck Neck: Present: supple, normal ROM - Respiratory Respiratory effort: normal - Cardiovascular Rhythm: regular Heart Sounds: Present: S1 & S2. Absent: gallop, systolic murmur, diastolic murmur, click - Extremities Extremities: no ischemia, No edema Peripheral Pulses: within normal limits - Abdominal General gastrointestinal: Present: soft, non-tender, non-distended. Absent: tender, distended, rigid Female genitourinary: Present: deferred - Rectal Rectal Exam: deferred - Integumentary Integumentary: Present: clear, warm, dry. Absent: jaundice, rash, clammy - Musculoskeletal Musculoskeletal: strength equal bilaterally - Psychiatric Psychiatric: appropriate mood/affect - Neurologic Neurologic: CNII-XII intact HEART Score - HEART Score Risk factors: 1-2 risk factors Troponin: Troponin T < 0.010 ng/mL (0.00-0.029) 07/06/20 21:37 Troponin: < normal limit - Critical Actions Critical Actions: 0-3 pts:0.9-1.7%risk of adverse cardiac event.Candidate for discharge Results - Labs CBC & Chem 7: 07/06/20 21:37 07/06/20 21:37 Labs: Laboratory Last Values WBC 4.4 K/mm3 (4.5-11.0) L 07/06/20 21:37 RBC 2.75 M/mm3 (3.65-5.03) L 07/06/20 21:37 Hgb 8.1 gm/dl (10.1-14.3) L 07/06/20 21:37 Hct 25.0 % (30.3-42.9) L 07/06/20 21:37 MCV 91 fl (79-97) 07/06/20 21:37 MCH 29 pg (28-32) 07/06/20 21:37 MCHC 33 % (30-34) 07/06/20 21:37 RDW 17.2 % (13.2-15.2) H 07/06/20 21:37 Plt Count 254 K/mm3 (140-440) 07/06/20 21:37 Lymph % (Auto) 24.8 % (13.4-35.0) 07/06/20 21:37 [place] % (Auto) 10.8 % (0.0-7.3) H 07/06/20 21:37 Eos % (Auto) 5.0 % (0.0-4.3) H 07/06/20 21:37 Baso % (Auto) 0.9 % (0.0-1.8) 07/06/20 21:37 Lymph # 1.1 K/mm3 (1.2-5.4) L 07/06/20 21:37 [place] # 0.5 K/mm3 (0.0-0.8) 07/06/20 21:37 Eos # 0.2 K/mm3 (0.0-0.4) 07/06/20 21:37 Baso # 0.0 K/mm3 (0.0-0.1) 07/06/20 21:37 Seg Neutrophils % 58.5 % (40.0-70.0) 07/06/20 21:37 Seg Neutrophils # 2.6 K/mm3 (1.8-7.7) 07/06/20 21:37 Sodium 142 mmol/L (137-145) 07/06/20 21:37 Potassium 5.6 mmol/L (3.6-5.0) H 07/06/20 21:37 Chloride 103.6 mmol/L (98-107) 07/06/20 21:37 Carbon Dioxide 26 mmol/L (22-30) 07/06/20 21:37 Anion Gap 18 mmol/L 07/06/20 21:37 BUN 16 mg/dL (7-17) 07/06/20 21:37 Creatinine 2.1 mg/dL (0.6-1.2) H 07/06/20 21:37 Estimated GFR 27 ml/min 07/06/20 21:37 BUN/Creatinine Ratio 8 % 07/06/20 21:37 Glucose 82 mg/dL (65-100) 07/06/20 21:37 Calcium 8.5 mg/dL (8.4-10.2) 07/06/20 21:37 Total Bilirubin 0.20 mg/dL (0.1-1.2) 07/06/20 21:37 AST 14 units/L (5-40) 07/06/20 21:37 ALT 8 units/L (7-56) 07/06/20 21:37 Alkaline Phosphatase 78 units/L (35-129) 07/06/20 21:37 Total Creatine Kinase 110 units/L (30-135) 07/06/20 21:37 CK-MB (CK-2) 1.3 ng/mL (0.0-4.0) 07/06/20 21:37 CK-MB (CK-2) Rel Index 1.1 (0-4) 07/06/20 21:37 Troponin T < 0.010 ng/mL (0.00-0.029) 07/06/20 21:37 Total Protein 6.3 g/dL (6.3-8.2) 07/06/20 21:37 Albumin 3.8 g/dL (3.9-5) L 07/06/20 21:37 Albumin/Globulin Ratio 1.5 % 07/06/20 21:37 Urine Color Yellow (Yellow) 07/07/20 01:46 Urine Turbidity Clear (Clear) 07/07/20 01:46 Urine pH 5.0 (5.0-7.0) 07/07/20 01:46 Ur Specific [place] 1.008 (1.003-1.030) 07/07/20 01:46 Urine Protein <15 mg/dl mg/dL (Negative) 07/07/20 01:46 Urine Glucose (UA) Neg mg/dL (Negative) 07/07/20 01:46 Urine Ketones Neg mg/dL (Negative) 07/07/20 01:46 Urine Blood Sm (Negative) 07/07/20 01:46 Urine Nitrite Neg (Negative) 07/07/20 01:46 Urine Bilirubin Neg (Negative) 07/07/20 01:46 Urine Urobilinogen < 2.0 mg/dL (<2.0) 07/07/20 01:46 Ur Leukocyte Esterase Tr (Negative) 07/07/20 01:46 Urine WBC (Auto) 2.0 /HPF (0.0-6.0) 07/07/20 01:46 Urine RBC (Auto) 1.0 /HPF (0.0-6.0) 07/07/20 01:46 U Epithel Cells (Auto) 2.0 /HPF (0-13.0) 07/07/20 01:46 Urine Bacteria (Auto) 1+ /HPF (Negative) 07/07/20 01:46 Urine Mucus Few /HPF 07/07/20 01:46 Herrera/IV: IV Catheter Type [Right INT / Saline Lock Forearm] Assessment and Plan - Patient Problems (1) COPD exacerbation Current Visit: Yes Status: Acute Plan to address problem: 1.I.V SOLUMEDROL 2. I.V LEVAQUIN ANTIBIOTIC 3. DUO NEBULIZER 4.OXYGEN BY NASAL CANNULA (2) Hyperkalemia Current Visit: Yes Status: Acute Plan to address problem: 1. KAYEXELATE PO 2. ALBUTEROL NEBULIZER, 3. BMP MORNITOR (3) Syncope Current Visit: Yes Status: Acute Plan to address problem: 1. 2 D ECHOCARDIOGRAM 2. BILATERAL CAROTID DOPPLER ULTRASOUND 3. SERIAL CARDIAC ENZYMES 4. I.V NORMAL SALINE (4) NELIDA (acute kidney injury) Current Visit: No Status: Acute Plan to address problem: 1. I.V NORMAL SALINE 2. NEPHROLOGY CONSULT 3. BMP MONITORING
[2020-07-07] MEDS ORDERED: SODIUM POLYSTYRENE 15 GM/60 ML ORAL LIQD ONE (03:36)
[2020-07-07] MEDS: HEPARIN 5,000 UNIT/1 ML VIAL SUB-Q SCH ×3 (06:43→22:55)
[2020-07-07] MEDS: methylPREDNISolone Sod Succinate 40 MG/1 ML INJ IV SCH ×3 (06:43→22:55)
[2020-07-07] MEDS ORDERED: IPRATROPIUM/ALBUTEROL SULFATE 3 ML AMPUL.NEB IH SCH (08:00)
[2020-07-07 08:07] LABS: Creatine Kinase MB 1.4 ng/mL (0.0-4.0)
[2020-07-07 08:11] LABS: BUN/Creatinine Ratio 7; Blood Urea Nitrogen 15 mg/dL (7-17); Calcium 8.2 mg/dL (8.4-10.2); Hemolysis Index 6
[2020-07-07] MEDS ORDERED: SODIUM POLYSTYRENE 15 GM/60 ML ORAL LIQD PO NR (08:17)
[2020-07-07] MEDS: MORPHINE 2 MG/1 ML INJ IV PRN (10:29)
--- NOTE | 2020-07-07 12:44 | Consultation ---
Past History Past Medical History: arthritis, hypertension, renal failure, stroke, other (SYNCOPE, BRONCHITIS) Medications and Allergies Allergies Allergy/AdvReac Type Severity Reaction Status Date / Time aspirin Allergy Hives Verified 03/15/18 13:11 Penicillins Allergy Hives Verified 03/15/18 13:11 Sulfa (Sulfonamide Allergy Hives Verified 03/15/18 13:11 Antibiotics) Home Medications Medication Instructions Recorded Confirmed Last Taken Type ALBUTEROL Inhaler(NF) [VENTOLIN 2 puff IH Q4H PRN #1 inha 11/01/18 07/07/20 08/07/19 Rx Inhaler(NF)] Budesonide/Formoterol Fumarate 2 puff IH DAILY #1 hfa.aer.ad 11/01/18 07/07/20 08/07/19 Rx [Symbicort 160-4.5 Mcg Inhaler] Famotidine [Pepcid] 20 mg PO DAILY #30 tablet 11/01/18 07/07/20 08/07/19 Rx Ipratropium/Albuterol Sulfate 1 ampul IH TIDRT PRN #30 ampul.neb 11/01/18 07/07/20 08/07/19 Rx [DUONEB *Not for PRN Use*] Mirtazapine [Remeron 30mg TAB] 30 mg PO QHS PRN #30 tablet 11/01/18 07/07/20 08/07/19 Rx Sodium Polystyrene Sulfonate 15 gm PO 3XW 03/26/20 07/07/20 Unknown History [Kalexate] traMADoL [Ultram] 50 mg PO Q6HR PRN 03/26/20 07/07/20 Unknown History Azithromycin [Zithromax TAB] 250 mg PO QDAY #6 tablet 03/28/20 07/07/20 Unknown Rx Prednisone [predniSONE 10 mg 10 mg PO .TAPER #1 tab.ds.pk 03/28/20 07/07/20 Unknown Rx (6-Day Pack, 21 Tabs)] Active Meds: Active Medications Albuterol/Ipratropium (Duoneb *Not For Prn Use*) 1 ampul IH TIDRT [facility] Heparin Sodium (Porcine) (Heparin) 5,000 unit SUB-Q Q8HR [facility] Last Admin: 07/07/20 06:43 Dose: 5,000 unit Documented by: Sodium Chloride (Nacl 0.9% 1000 Ml) 1,000 mls @ 75 mls/hr IV DIRECT MANE Last Admin: 07/07/20 06:44 Dose: 75 mls/hr Documented by: Levofloxacin/Dextrose (Levaquin 750mg/150ml) 750 mg in 150 mls @ 100 mls/hr IV Q48HR [facility]; Protocol Last Admin: 07/07/20 10:25 Dose: 100 mls/hr Documented by: Methylprednisolone Sodium Succinate (Solu-Medrol) 60 mg IV Q8HR [facility] Last Admin: 07/07/20 06:43 Dose: 60 mg Documented by: Morphine Sulfate (Morphine) 2 mg IV Q4H PRN PRN Reason: Pain, Moderate (4-6) Last Admin: 07/07/20 10:29 Dose: 2 mg Documented by: Ondansetron HCl (Zofran) 4 mg IV Q8H PRN PRN Reason: Nausea And Vomiting Exam - Vital Signs Vital signs: Vital Signs Temp Pulse Resp BP 99.1 F 101 H 22 122/85 07/06/20 20:05 07/06/20 20:05 07/06/20 20:05 07/06/20 20:05 Results - Lab Results 07/06/20 21:37 07/07/20 07:16 Most recent lab results Calcium 8.2 mg/dL (8.4-10.2) L 07/07/20 07:16
--- NOTE | 2020-07-07 12:50 | Consultation ---
History of Present Illness - Reason for Consult Consult date: 07/07/20 acute renal failure, chronic renal failure - History of Present Illness The patient is an 80 YO female who is well known to our service with history significant for HTN, Diastolic CHF, COPD, chronic hypoxic respiratory failure on home O2, SSS s/p PPM, Anemia and CKD stage 4 who presented to [facility] ED 07/06 after she passed out at home. Patient was walking from kitchen to bedroom when she felt dizzy and passed out. There was no history of chest pain, N, V, D, diaphoresis, palpitation, shortness of breath, cough, hemoptysis, fever or chills. Patient woke up with pain in the hips and left flank areas. Patient was admitted for further evaluation of syncope. Per patient she had a similar episode about 3 months agoand was admitted [facility] 2 months [facility] 2 weeks. Labs significant for Creat 2.2 and K 5.5. Nephrology was consulted for further evaluation. Past History Past Medical History: arthritis, hypertension, renal failure, stroke, other (SYNCOPE, BRONCHITIS) Medications and Allergies Allergies Allergy/AdvReac Type Severity Reaction Status Date / Time aspirin Allergy Hives Verified 03/15/18 13:11 Penicillins Allergy Hives Verified 03/15/18 13:11 Sulfa (Sulfonamide Allergy Hives Verified 03/15/18 13:11 Antibiotics) Home Medications Medication Instructions Recorded Confirmed Last Taken Type ALBUTEROL Inhaler(NF) [VENTOLIN 2 puff IH Q4H PRN #1 inha 11/01/18 07/07/20 08/07/19 Rx Inhaler(NF)] Budesonide/Formoterol Fumarate 2 puff IH DAILY #1 hfa.aer.ad 11/01/18 07/07/20 08/07/19 Rx [Symbicort 160-4.5 Mcg Inhaler] Famotidine [Pepcid] 20 mg PO DAILY #30 tablet 11/01/18 07/07/20 08/07/19 Rx Ipratropium/Albuterol Sulfate 1 ampul IH TIDRT PRN #30 ampul.neb 11/01/18 07/07/20 08/07/19 Rx [DUONEB *Not for PRN Use*] Mirtazapine [Remeron 30mg TAB] 30 mg PO QHS PRN #30 tablet 11/01/18 07/07/20 08/07/19 Rx Sodium Polystyrene Sulfonate 15 gm PO 3XW 03/26/20 07/07/20 Unknown History [Kalexate] levoFLOXacin [Levaquin TAB] 500 mg PO QDAY #3 tablet 07/08/20 Unknown Rx predniSONE [Deltasone] 40 mg PO QDAY #8 tab 07/08/20 Unknown Rx traMADoL [Ultram 50 MG tab] 50 mg PO Q6HR PRN #12 07/08/20 Unknown Rx Active Meds: Active Medications Albuterol/Ipratropium (Duoneb *Not For Prn Use*) 1 ampul IH TIDRT [facility] Heparin Sodium (Porcine) (Heparin) 5,000 unit SUB-Q Q8HR [facility] Last Admin: 07/07/20 06:43 Dose: 5,000 unit Documented by: Sodium Chloride (Nacl 0.9% 1000 Ml) 1,000 mls @ 75 mls/hr IV DIRECT MANE Last Admin: 07/07/20 06:44 Dose: 75 mls/hr Documented by: Levofloxacin/Dextrose (Levaquin 750mg/150ml) 750 mg in 150 mls @ 100 mls/hr IV Q48HR [facility]; Protocol Last Admin: 07/07/20 10:25 Dose: 100 mls/hr Documented by: Methylprednisolone Sodium Succinate (Solu-Medrol) 60 mg IV Q8HR [facility] Last Admin: 07/07/20 06:43 Dose: 60 mg Documented by: Morphine Sulfate (Morphine) 2 mg IV Q4H PRN PRN Reason: Pain, Moderate (4-6) Last Admin: 07/07/20 10:29 Dose: 2 mg Documented by: Ondansetron HCl (Zofran) 4 mg IV Q8H PRN PRN Reason: Nausea And Vomiting Review of Systems Constitutional: no weight loss, no weight gain, no fever, no chills, no anorexia, no fatigue, no weakness Ears, nose, mouth and throat: no vertigo Breasts: deferred Cardiovascular: syncope, lightheadedness, shortness of breath, high blood pressure, no chest pain, no orthopnea, no edema Respiratory: shortness of breath, dyspnea on exertion, home oxygen, no cough, no sleep apnea Gastrointestinal: no abdominal pain, no nausea, no vomiting, no diarrhea Genitourinary Female: no dysuria, no hematuria Rectal: no bleeding Integumentary: no jaundice Neurological: syncope, no weakness, no seizures, no change in speech, no change in mentation Exam - Vital Signs Vital signs: Vital Signs Temp Pulse Resp BP 99.1 F 101 H 22 122/85 07/06/20 20:05 07/06/20 20:05 07/06/20 20:05 07/06/20 20:05 Results - Lab Results 07/06/20 21:37 07/08/20 06:03 Most recent lab results Calcium 8.2 mg/dL (8.4-10.2) L 07/07/20 07:16 Assessment and Plan 1. CKD stage 4: Patient is known to have stage 4 CKD and followed by our service. Renal function is around her baseline. Monitor renal function. Avoid nephrotoxic agents. Meds dosage based on GFR. 2. FEN: Hyperkalemia, s/p kayexalate, follow K level. Low potassium diet. Follow lytes. 3. Syncope: Head CT negative. Echo and Carotid Doppler pending. 4. COPD exacerbation: On Steroids, Abx and aerosol. 5. Chronic respiratory failure: NC O2. 6. Chronic Anemia: POA. Subjective: Patient was seen and examined at the bedside. Doing ok. - Examination: General appearance: well-developed, appears stated age, no distress HEENT: ATNC, FALG[place]I, hearing intact, vision intact Neck: neck supple, trachea midline Respiratory: Clear to Ascultation Heart: regular, S1S2, no murmur Gastrointestinal: soft, normoactive bowel sounds, not tender, not distended Integumentary: no rash, warm and dry Neurologic: no focal deficit, no asterixis, alert and oriented x3 Ext: no edema
[2020-07-07] MEDS: IPRATROPIUM/ALBUTEROL SULFATE 3 ML AMPUL.NEB IH SCH ×2 (13:54→21:13)
--- NOTE | 2020-07-07 16:05 | Event Note ---
Date: 07/07/20 Patient seen and examined 80-year-old female presented to hospital after having a syncopal episode Admitted for COPD exacerbation, syncope, possible NELIDA and hyperkalemia Continue to monitor, follow-up pending test results, order a.m. labs If clinically stable and work-up is negative possible DC tomorrow morning if clears by PT
--- NOTE | 2020-07-07 17:36 | Vascular Lab Report ---
VL carotid duplex BILAT INDICATION / CLINICAL INFORMATION: syncope COMPARISON: None available. FINDINGS: Small quantity of bilateral scattered atherosclerotic plaque. RIGHT CAROTID: - CCA velocity: 90 cm/sec. - ICA peak systolic velocity: 59 cm/sec. - ICA/CCA PSV Ratio: Less than 2 Right Vertebral Artery: Antegrade flow. LEFT CAROTID: - CCA velocity: 88 cm/sec. - ICA peak systolic velocity: 114 cm/sec. - ICA/CCA PSV Ratio: Less than 2 Left Vertebral Artery: Antegrade flow. IMPRESSION: 1. No occlusion or hemodynamically significant stenosis of the bilateral carotid arteries. Less than 50% stenosis bilaterally. Velocity criteria are extrapolated from diameter data as defined by the Society of Radiologists in Ul trasound Consensus Conference, Radiology 2003; 229;340-346. NO STENOSIS (NORMAL) * Plaque = none; ICA PSV < 125 cm/sec; ICA/CCA PSV Ratio < 2.0 <50% STENOSIS * Plaque < 50%; ICA PSV < 125 cm/sec; ICA/CCA PSV Ratio < 2.0 50-69% STENOSIS * Plaque > 50%; ICA PSV = 125-230 cm/sec; ICA/CCA PSV Ratio = 2.0-4.0 >70% BUT <100% STENOSIS * Plaque > 50%; ICA PSV < 230 cm/sec; ICA/CCA PSV Ratio > 4.0 NEAR OCCLUSION * Plaque = visible lumen; ICA PSV = high/low/none; ICA/CCA PSV Ratio = variable TOTAL OCCLUSION * Plaque = no lumen; ICA PSV = none; ICA/CCA PSV Ratio = N/A Signer Name: Darryn Calvert MD Signed: 07/07/2020 5:32 PM Workstation Name: [id number]
[2020-07-07 20:20] LABS: Creatine Kinase MB 1.5 ng/mL (0.0-4.0)
[2020-07-08] MEDS: MORPHINE 2 MG/1 ML INJ IV PRN (00:23)
[2020-07-08 06:35] LABS: Calcium 7.4 mg/dL (8.4-10.2)
[2020-07-08] MEDS: methylPREDNISolone Sod Succinate 40 MG/1 ML INJ IV SCH ×2 (06:41→13:20)
[2020-07-08] MEDS: HEPARIN 5,000 UNIT/1 ML VIAL SUB-Q SCH ×2 (06:42→13:20)
[2020-07-08] MEDS: IPRATROPIUM/ALBUTEROL SULFATE 3 ML AMPUL.NEB IH SCH ×2 (07:35→13:39)
--- NOTE | 2020-07-08 10:44 | Discharge Summary ---
Providers - Providers Date of Admission: 07/07/20 01:33 Date of discharge: 07/08/20 Attending physician: NILESH THOMAS 07/07/20 02:25 Consult to Physician [CONS] Routine Comment: Consulting Provider: BRAD MELENDEZ Physician Instructions: Reason For Exam: CKD 07/07/20 06:57 Physical Therapy Evaluation and Treat [CONS] Routine Comment: Reason For Exam: DIFFICULTY WITH AMBULATION Primary care physician: CHECK CLERK Hospitalization Reason for admission: Sync Condition: Stable Hospital course: 80-year-old female with a past medical history of COPD on home oxygen, CHF, CVA, hypertension, and chronic renal sufficiency presents to the hospital complains of syncopal episode 2 days ago. Patient states had a syncopal episode at home while walking and woke up with back and bilateral hip pain. Patient also complains of persistent mild headache. She denies nausea, vomiting, focal weakness or numbness. Patient is however having trouble walking secondary to hip and back pain. Patient was able to walk without assistive device prior to the fall 2 days ago. Patient has been having increased shortness of breath and wheezing despite bronchodilator use. Patient states she was recently discharged from a rehab facility after prolonged admission at [place] for fall/syncope 2 months. Here in the ER, she was noted to have COPD exacerbation and was started on IV antibiotics and IV steroids. Patient was admitted to the hospital. Patient had imaging test of the back that showed L3 burst fracture which is chronic but slightly progressed than previous imaging. No neurosurgery available here. Patient denies any worsening back pain, urinary or fecal incontinence. Patient will need to follow-up with neurosurgeon at the office. She has a pacemaker and has a loss prevention specialist. She will need to follow-up with loss prevention specialist in the office. Echocardiogram and ultrasound carotid Doppler shows no acute pathology responsible for syncopal episode 2 days prior to presentation. This morning, patient feels great and breathing is improved. She is no longer wheezing and short of breath. She is back to her usual 3 L of oxygen. She has been seen by physical therapy who recommended home with home health. Patient is okay with going home with home health at this time. She will be discharged on short course steroids and antibiotics to follow-up with her doctors in the office. She says she has appointments set up already. Disposition: DC/TX- HOME UNDER HOME HLTH - Discharge Diagnoses (1) COPD exacerbation Status: Acute (2) Syncope Status: Acute Core Measure Documentation - Palliative Care Palliative Care/ Comfort Measures: Not Applicable - Core Measures Any of the following diagnoses?: none Exam - Constitutional Vitals: Temp Pulse Resp BP Pulse Ox 98.4 F 96 H 18 144/72 99 07/08/20 05:32 07/08/20 07:35 07/08/20 07:35 07/08/20 05:32 07/08/20 09:35 General appearance: Present: no acute distress, well-nourished - EENT Eyes: Present: PERRL ENT: hearing intact, clear oral mucosa - Neck Neck: Present: supple, normal ROM - Respiratory Respiratory effort: normal Respiratory: bilateral: CTA - Cardiovascular Heart Sounds: Present: S1 & S2. Absent: rub, click - Extremities Extremities: pulses symmetrical, No edema Peripheral Pulses: within normal limits - Abdominal General gastrointestinal: Present: soft, non-tender, non-distended, normal bowel sounds Female genitourinary: Present: normal - Integumentary Integumentary: Present: clear, warm, dry - Musculoskeletal Musculoskeletal: gait normal, strength equal bilaterally - Psychiatric Psychiatric: appropriate mood/affect, intact judgment & insight - Neurologic Neurologic: CNII-XII intact, moves all extremities Plan Additional Instructions: Complete steroids and antibiotic course. Follow-up with neurosurgeon, loss prevention specialist and primary medical doctor in 1 to 2 weeks. Follow up with: PRIMARY CARE,MD [Primary Care Provider] - 7 Days Prescriptions: predniSONE [Deltasone] 40 mg PO QDAY #8 tab levoFLOXacin [Levaquin TAB] 500 mg PO QDAY #3 tablet
[2020-07-08 11:00] VITALS: BP 152/64
--- NOTE | 2020-07-08 18:40 | Progress Note ---
Assessment and Plan 1. CKD stage 4: Patient is known to have stage 4 CKD and followed by our service. Renal function is around her baseline. Monitor renal function. Avoid nephrotoxic agents. Meds dosage based on GFR. 2. FEN: Hyperkalemia, improved, follow K level. Low potassium diet. Follow lytes. 3. Syncope: Head CT negative. Echo with normal EF. Carotid Doppler - no significant blockage. 4. COPD exacerbation: On Steroids, Abx and aerosol. 5. Chronic respiratory failure: NC O2. 6. Chronic Anemia: POA. Subjective: Patient was seen and examined at the bedside. Doing ok. - Examination: General appearance: well-developed, appears stated age, no distress HEENT: ATNC, FALG[place]I, hearing intact, vision intact Neck: neck supple, trachea midline Respiratory: Clear to Ascultation Heart: regular, S1S2, no murmur Gastrointestinal: soft, normoactive bowel sounds, not tender, not distended Integumentary: no rash, warm and dry Neurologic: no focal deficit, no asterixis, alert and oriented x3 Ext: no edema Subjective Date of service: 07/08/20 Objective - Vital Signs Vital signs: Vital Signs - 12hr 07/08/20 07/08/20 07/08/20 07:35 07:58 09:35 Temperature 98.5 F Pulse Rate 107 H Pulse Rate [ 96 H Anterior Throughout] Respiratory 18 Rate Respiratory 18 Rate [Anterior Throughout] Blood Pressure 152/64 O2 Sat by Pulse 96 99 Oximetry 07/08/20 07/08/20 13:31 18:10 Temperature Pulse Rate 88 Pulse Rate [ 94 H Anterior Throughout] Respiratory Rate Respiratory 18 Rate [Anterior Throughout] Blood Pressure O2 Sat by Pulse Oximetry - Lab 07/06/20 21:37 07/08/20 06:03 Most recent lab results Calcium 7.4 mg/dL (8.4-10.2) L 07/08/20 06:03 Urine Color Yellow (Yellow) 07/07/20 01:46 Urine Turbidity Clear (Clear) 07/07/20 01:46 Urine pH 5.0 (5.0-7.0) 07/07/20 01:46 Ur Specific [place] 1.008 (1.003-1.030) 07/07/20 01:46 Urine Protein <15 mg/dl mg/dL (Negative) 07/07/20 01:46 Urine Glucose (UA) Neg mg/dL (Negative) 07/07/20 01:46 Urine Ketones Neg mg/dL (Negative) 07/07/20 01:46 Urine Blood Sm (Negative) 07/07/20 01:46 Urine Nitrite Neg (Negative) 07/07/20 01:46 Urine Bilirubin Neg (Negative) 07/07/20 01:46 Urine Urobilinogen < 2.0 mg/dL (<2.0) 07/07/20 01:46 Ur Leukocyte Esterase Tr (Negative) 07/07/20 01:46 Urine WBC (Auto) 2.0 /HPF (0.0-6.0) 07/07/20 01:46 Urine RBC (Auto) 1.0 /HPF (0.0-6.0) 07/07/20 01:46 U Epithel Cells (Auto) 2.0 /HPF (0-13.0) 07/07/20 01:46 Urine Bacteria (Auto) 1+ /HPF (Negative) 07/07/20 01:46 Calcium Oxalate Crystal Not Reportable 07/07/20 01:46 Urine Mucus Few /HPF 07/07/20 01:46 Medications & Allergies - Medications Allergies/Adverse Reactions: Allergies aspirin Allergy (Verified 03/15/18 13:11) Hives Penicillins Allergy (Verified 03/15/18 13:11) Hives Sulfa (Sulfonamide Antibiotics) Allergy (Verified 03/15/18 13:11) Hives Home Medications: Home Medications Medication Instructions Recorded Confirmed Last Taken Type ALBUTEROL Inhaler(NF) [VENTOLIN 2 puff IH Q4H PRN #1 inha 11/01/18 07/07/20 08/07/19 Rx Inhaler(NF)] Budesonide/Formoterol Fumarate 2 puff IH DAILY #1 hfa.aer.ad 11/01/18 07/07/20 08/07/19 Rx [Symbicort 160-4.5 Mcg Inhaler] Famotidine [Pepcid] 20 mg PO DAILY #30 tablet 11/01/18 07/07/20 08/07/19 Rx Ipratropium/Albuterol Sulfate 1 ampul IH TIDRT PRN #30 ampul.neb 11/01/18 07/07/20 08/07/19 Rx [DUONEB *Not for PRN Use*] Mirtazapine [Remeron 30mg TAB] 30 mg PO QHS PRN #30 tablet 11/01/18 07/07/20 08/07/19 Rx Sodium Polystyrene Sulfonate 15 gm PO 3XW 03/26/20 07/07/20 Unknown History [Kalexate] levoFLOXacin [Levaquin TAB] 500 mg PO QDAY #3 tablet 07/08/20 Unknown Rx predniSONE [Deltasone] 40 mg PO QDAY #8 tab 07/08/20 Unknown Rx traMADoL [Ultram 50 MG tab] 50 mg PO Q6HR PRN #12 07/08/20 Unknown Rx Active Medications: Generic Name Dose Route Start Last Admin Trade Name Freq PRN Reason Stop Dose Admin Albuterol/Ipratropium 1 ampul 07/07/20 14:00 07/08/20 13:39 Duoneb *Not For Prn Use* IH 1 ampul TIDRT MANE Administration Heparin Sodium (Porcine) 5,000 unit 07/07/20 06:00 07/08/20 13:20 Heparin SUB-Q 5,000 unit Q8HR MANE Administration Sodium Chloride 1,000 mls @ 75 mls/hr 07/07/20 02:30 07/07/20 06:44 Nacl 0.9% 1000 Ml IV 75 mls/hr DIRECT MANE Administration Levofloxacin 750 mg 07/09/20 10:00 Levaquin PO Q48HR MANE Methylprednisolone Sodium Succinate 60 mg 07/07/20 06:00 07/08/20 13:20 Solu-Medrol IV 60 mg Q8HR MANE Administration Morphine Sulfate 2 mg 07/07/20 02:34 07/08/20 00:23 Morphine IV 2 mg Q4H PRN Administration Pain, Moderate (4-6) Ondansetron HCl 4 mg 07/07/20 02:35 Zofran IV Q8H PRN Nausea And Vomiting
[2020-07-09] MEDS ORDERED: levoFLOXacin 750 MG TAB PO SCH (10:00)
== END 2020-07-08 19:10 | disposition home health service (06) ==
LOC: ED 19:54 → 4A 07-07 01:33
PROVIDERS: ADMIT Internal Medicine; ATTEND Internal Medicine
DX: J44.1 Chronic obstructive pulmonary disease with (acute) exacerbation (principal); R55 Syncope and collapse; S32.001A Stable burst fracture of unspecified lumbar vertebra, initial encounter for closed fracture; I13.0 Hypertensive heart and chronic kidney disease with heart failure and stage 1 through stage 4 chronic kidney disease, or unspecified chronic kidney disease; I50.9 Heart failure, unspecified; N18.4 Chronic kidney disease, stage 4 (severe); J96.10 Chronic respiratory failure, unspecified whether with hypoxia or hypercapnia; E87.5 Hyperkalemia; D53.9 Nutritional anemia, unspecified; N17.9 Acute kidney failure, unspecified; M19.90 Unspecified osteoarthritis, unspecified site; Z86.73 Personal history of transient ischemic attack (TIA), and cerebral infarction without residual deficits; Z79.899 Other long term (current) drug therapy
CPT/HCPCS: 36415; 70450; 71045; 72100; 72131; 72192; 73521; 80048; 80053; 81001; 82550; 82553; 82962; 84484; 85025; 87116; 87641; 93005; 93306; 93880; 94640; 94644; 94760; 96361; 96365; 96367; 96372; 96375; 96376; 97116; 97162; 99285; G0378; J1644; J1940; J1956; J2270; J2405; J2920; J2930; J3475; J7030

== ENCOUNTER 2020-11-19 10:48 | Outpatient (CLI) | payer MEDICARE ==
[2020-11-19 11:49] LABS: Albumin 4.3 g/dL (3.9-5); Calcium 8.7 mg/dL (8.4-10.2)
== END 2020-11-19 10:49 | disposition home or self-care (01) ==
LOC: LAB 10:48
PROVIDERS: ATTEND Internal Medicine Nephrology
DX: N18.4 Chronic kidney disease, stage 4 (severe) (principal)
CPT/HCPCS: 36415; 80048; 82040; 84100

== ENCOUNTER 2021-01-14 11:40 | Emergency (ER) | payer MEDICARE ==
--- NOTE | 2021-01-14 11:53 | Event Note ---
ED Screening Note ED Screening Note: Patient presents for worsening shortness of breath over the last week She states that she went to her code clerk in [place] and was given a steroid injection and placed on prednisone, she wears oxygen at home, she states that her code clerk and campus police officer advised her to report to the emergency r oom secondary to abnormal lab work which she reports she believes was worsening kidney function She states that she is only able to take a couple steps without feeling short of breath she states usually she is able to drive herself but had to call transportation to go to her pulmonology appointment due to feeling so short of breath and generalized weakness She denies any chest pain, abdominal pain, fever, nausea, vomiting, diarrhea, urinary symptoms This initial assessment/diagnostic orders/clinical plan/treatment(s) is/are subject to change based on patients health status, clinical progression and re- assessment by fellow clinical providers in the ED. Further treatment and workup at subsequent clinical providers discretion. Patient/guardian urged not to elope from the ED as their condition may be serious if not clinically assessed and managed. Initial orders include: Labs, EKG, chest x-ray
[2021-01-14 12:09] LABS: Basophils % (Auto) 0.3 % (0.0-1.8); Eosinophils # (Auto) 0.3 K/mm3 (0.0-0.4); Eosinophils % (Auto) 4.7 % (0.0-4.3); Hematocrit 30.3 % (30.3-42.9); Hemoglobin 10.1 gm/dl (10.1-14.3); Lymphocytes # (Auto) 1.6 K/mm3 (1.2-5.4); Lymphocytes % (Auto) 26.8 % (13.4-35.0); Mean Corpuscular HGB Conc 33 % (30-34); Mean Corpuscular Volume 86 fl (79-97); Monocytes # (Auto) 0.6 K/mm3 (0.0-0.8); Monocytes % (Auto) 10.5 % (0.0-7.3); Platelet Count 172 K/mm3 (140-440); Red Blood Count 3.52 M/mm3 (3.65-5.03); Red Cell Distribution Width 15.7 % (13.2-15.2)
[2021-01-14 12:30] LABS: Calcium 8.9 mg/dL (8.4-10.2)
[2021-01-14] MEDS ORDERED: INSULIN REGULAR, HUMAN 100 UNITS/1 ML IV ONE (13:15)
[2021-01-14] MEDS ORDERED: SODIUM BICARB 8.4% 50 MEQ/50 ML SYRINGE IV ONE (13:15)
[2021-01-14] MEDS ORDERED: DEXTROSE 50% IN WATER (25GM) 50 ML SYRINGE IV ONE (13:15)
[2021-01-14] MEDS ORDERED: SODIUM POLYSTYRENE 15 GM/60 ML ORAL LIQD PO ONE (13:15)
--- NOTE | 2021-01-14 13:25 | XRay Report ---
CHEST 1 VIEW 01/14/2021 12:43 PM INDICATION / CLINICAL INFORMATION: SOB. COMPARISON: One view of the chest dated 07/06/2020. FINDINGS: SUPPORT DEVICES: Unchanged. HEART / MEDIASTINUM: Stable. LUNGS / PLEURA: Clear lungs. No significant pleural effusion. No pneumothorax. ADDITIONAL FINDINGS: There are severe degenerative changes of the shoulders. IMPRESSION: 1. No acute abnormality of the chest. Signer Name: Chucho Geiger MD Signed: 01/14/2021 1:20 PM Workstation Name: [id number]
[2021-01-14] MEDS ORDERED: ALBUTEROL 2.5 MG/3 ML NEBU IH ONE (13:53)
--- NOTE | 2021-01-14 13:57 | Emergency Department Report ---
ED General Adult HPI - General Chief complaint: Recheck/Abnormal Lab/Rx Stated complaint: KIDNEY/BREATHING PROBLEMS Time Seen by Provider: 01/14/21 11:50 Source: patient Mode of arrival: Ambulatory Limitations: No Limitations - History of Present Illness Initial comments: Patient is 80-year-old [place] female with a past medical history of CHF COPD who is on 3 L of oxygen at baseline who is presenting with abnormality of her lab work. Patient states for the last month and a half she has had some exertional shortness of breath. She has been seeing her wheel braider and building admin lately. Does not appear that she is been retaining fluid. She was on a short course of steroids which did help briefly but she states she is continued to have symptoms. On her last visit with her doctor she was called and told to return to the emergency department because of some abnormality of her labs. She has an appointment to see kidney specialist in 3 days. Assuming that she has abnormality of her potassium - Related Data Home Medications Medication Instructions Recorded Confirmed Last Taken Sodium Polystyrene Sulfonate 15 gm PO 3XW 03/26/20 07/07/20 Unknown [Kalexate] Previous Rx's Medication Instructions Recorded Last Taken Type ALBUTEROL Inhaler(NF) [VENTOLIN 2 puff IH Q4H PRN #1 inha 11/01/18 08/07/19 Rx Inhaler(NF)] Budesonide/Formoterol Fumarate 2 puff IH DAILY #1 hfa.aer.ad 11/01/18 08/07/19 Rx [Symbicort 160-4.5 Mcg Inhaler] Famotidine [Pepcid] 20 mg PO DAILY #30 tablet 11/01/18 08/07/19 Rx Ipratropium/Albuterol Sulfate 1 ampul IH TIDRT PRN #30 ampul.neb 11/01/18 08/07/19 Rx [DUONEB *Not for PRN Use*] Mirtazapine [Remeron 30mg TAB] 30 mg PO QHS PRN #30 tablet 11/01/18 08/07/19 Rx levoFLOXacin [Levaquin TAB] 500 mg PO QDAY #3 tablet 07/08/20 Unknown Rx predniSONE [Deltasone] 40 mg PO QDAY #8 tab 07/08/20 Unknown Rx traMADoL [Ultram 50 MG tab] 50 mg PO Q6HR PRN #12 07/08/20 Unknown Rx Allergies Allergy/AdvReac Type Severity Reaction Status Date / Time aspirin Allergy Hives Verified 03/15/18 13:11 Penicillins Allergy Hives Verified 03/15/18 13:11 Sulfa (Sulfonamide Allergy Hives Verified 03/15/18 13:11 Antibiotics) ED Review of Systems ROS: Stated complaint: KIDNEY/BREATHING PROBLEMS Other details as noted in HPI Comment: All other systems reviewed and negative ED Past Medical Hx - Past Medical History Previous Medical History?: Yes Hx Hypertension: Yes Hx CVA: Yes (x 2) Hx Heart Attack/AMI: No Hx Congestive Heart Failure: Yes Hx Diabetes: No Hx Deep Vein Thrombosis: No Hx Pulmonary Embolism: No Hx Renal Disease: Yes Hx Arthritis: Yes Hx Kidney Stones: No Hx Asthma: No Hx COPD: Yes Hx Tuberculosis: No Hx HIV: No Additional medical history: Chronic Bronchitis - Surgical History Past Surgical History?: Yes Hx Coronary Stent: No Hx Open Heart Surgery: Yes Hx Pacemaker: Yes Hx Internal Defibrillator: No Hx Cholecystectomy: No Hx Appendectomy: No Hx Breast Surgery: No Additional Surgical History: Right Knee Surgery , demand pacemaker (90's). Hyst. cataract removal in both eyes, - Social History Smoking Status: Never Smoker Substance Use Type: None - Medications Home Medications: Home Medications Medication Instructions Recorded Confirmed Last Taken Type ALBUTEROL Inhaler(NF) [VENTOLIN 2 puff IH Q4H PRN #1 inha 11/01/18 07/07/20 08/07/19 Rx Inhaler(NF)] Budesonide/Formoterol Fumarate 2 puff IH DAILY #1 hfa.aer.ad 11/01/18 07/07/20 08/07/19 Rx [Symbicort 160-4.5 Mcg Inhaler] Famotidine [Pepcid] 20 mg PO DAILY #30 tablet 11/01/18 07/07/20 08/07/19 Rx Ipratropium/Albuterol Sulfate 1 ampul IH TIDRT PRN #30 ampul.neb 11/01/18 07/07/20 08/07/19 Rx [DUONEB *Not for PRN Use*] Mirtazapine [Remeron 30mg TAB] 30 mg PO QHS PRN #30 tablet 11/01/18 07/07/20 08/07/19 Rx Sodium Polystyrene Sulfonate 15 gm PO 3XW 03/26/20 07/07/20 Unknown History [Kalexate] levoFLOXacin [Levaquin TAB] 500 mg PO QDAY #3 tablet 07/08/20 Unknown Rx predniSONE [Deltasone] 40 mg PO QDAY #8 tab 07/08/20 Unknown Rx traMADoL [Ultram 50 MG tab] 50 mg PO Q6HR PRN #12 07/08/20 Unknown Rx ED Physical Exam - General Limitations: No Limitations General appearance: alert, in no apparent distress - Head Head exam: Present: atraumatic, normocephalic - Eye Eye exam: Present: normal appearance - ENT ENT exam: Present: mucous membranes moist - Neck Neck exam: Present: normal inspection - Respiratory Respiratory exam: Present: normal lung sounds bilaterally. Absent: respiratory distress, wheezes, rales, rhonchi - Cardiovascular Cardiovascular Exam: Present: regular rate, normal rhythm, normal heart sounds. Absent: systolic murmur, diastolic murmur, rubs, gallop - GI/Abdominal GI/Abdominal exam: Present: soft, normal bowel sounds. Absent: distended, tenderness, guarding, rebound - Extremities Exam Extremities exam: Present: normal inspection - Back Exam Back exam: Present: normal inspection - Neurological Exam Neurological exam: Present: alert, oriented X3 - Psychiatric Psychiatric exam: Present: normal affect, normal mood - Skin Skin exam: Present: warm, dry, intact, normal color. Absent: rash ED Course Vital Signs 01/14/21 01/14/21 01/14/21 11:46 12:25 12:48 Temperature 98.6 F Pulse Rate 49 L 89 Respiratory 28 H 31 H 19 Rate Blood Pressure 156/44 130/71 Blood Pressure [Right] O2 Sat by Pulse 98 99 Oximetry 01/14/21 14:22 Temperature Pulse Rate 96 H Respiratory 19 Rate Blood Pressure Blood Pressure 154/59 [Right] O2 Sat by Pulse 100 Oximetry - Reevaluation(s) Reevaluation #1: 01/14/21 13:53 Patient attempted to walk to the bathroom without her oxygen and on the way back from the bathroom she became very short of breath and was wheezing. Was able to put the placement back in the room via wheelchair. Patient O2 sat was 86% on room air. She is on 3 L at baseline at home. Patient be given 10 of albuterol which also will help with the lowering of her potassium. Spoke with Dr. Dumont with nephrology and he came and actually saw the patient prior to her walk to the bathroom and agrees that she can receive medications for her elevated potassium and be discharged home to follow-up with them on Sunday. ED Medical Decision Making - Lab Data Result diagrams: 01/14/21 11:53 01/14/21 11:53 Lab Results 01/14/21 01/14/21 Range/Units 11:53 11:53 WBC 6.1 (4.5-11.0) K/mm3 RBC 3.52 L (3.65-5.03) M/mm3 Hgb 10.1 (10.1-14.3) gm/dl Hct 30.3 (30.3-42.9) % MCV 86 (79-97) fl MCH 29 (28-32) pg MCHC 33 (30-34) % RDW 15.7 H (13.2-15.2) % Plt Count 172 (140-440) K/mm3 Lymph % (Auto) 26.8 (13.4-35.0) % Leake % (Auto) 10.5 H (0.0-7.3) % Eos % (Auto) 4.7 H (0.0-4.3) % Baso % (Auto) 0.3 (0.0-1.8) % Lymph # (Auto) 1.6 (1.2-5.4) K/mm3 Leake # (Auto) 0.6 (0.0-0.8) K/mm3 Eos # (Auto) 0.3 (0.0-0.4) K/mm3 Baso # (Auto) 0.0 (0.0-0.1) K/mm3 Seg Neutrophils % 57.7 (40.0-70.0) % Seg Neutrophils # 3.5 (1.8-7.7) K/mm3 Sodium 145 (137-145) mmol/L Potassium 5.7 H (3.6-5.0) mmol/L Chloride 110.0 H (98-107) mmol/L Carbon Dioxide 25 (22-30) mmol/L Anion Gap 16 mmol/L BUN 25 H (7-17) mg/dL Creatinine 2.4 H (0.6-1.2) mg/dL Estimated GFR 24 ml/min BUN/Creatinine Ratio 10 % Glucose 102 H (65-100) mg/dL Calcium 8.9 (8.4-10.2) mg/dL Total Bilirubin 0.20 (0.1-1.2) mg/dL AST 17 (5-40) units/L ALT 11 (7-56) units/L Alkaline Phosphatase 64 (35-129) units/L Troponin T 0.022 (0.00-0.029) ng/mL NT-Pro-B Natriuret Pep 453.2 (0-900) pg/mL Total Protein 6.8 (6.3-8.2) g/dL Albumin 4.0 (3.9-5) g/dL Albumin/Globulin Ratio 1.4 % - Radiology Data Chest x-ray shows no acute abnormality - Medical Decision Making Patient with a potassium of 5.7. Patient was given bicarb D50 insulin albuterol and Kayexalate. Patient was monitored for an hour after receiving the insulin. Patient will be discharged home. Critical care attestation.: If time is entered above; I have spent that time in minutes in the direct care of this critically ill patient, excluding procedure time. ED Disposition Clinical Impression: Chronic renal disease, Hyperkalemia, COPD with exacerbation Disposition: DC-01 TO HOME OR SELFCARE Is pt being admited?: No Does the pt Need Aspirin: No Condition: Stable Instructions: Chronic Obstructive Pulmonary Disease (ED), Preventing Chronic Kidney Disease, Hyperkalemia Referrals: BRAD MELENDEZ MD [Staff Physician] - 3-5 Days Time of Disposition: 14:33
[2021-01-14 15:50] VITALS: BP 133/83
== END 2021-01-14 15:50 | disposition home or self-care (01) ==
LOC: ED 11:40
DX: J44.1 Chronic obstructive pulmonary disease with (acute) exacerbation (principal); I13.0 Hypertensive heart and chronic kidney disease with heart failure and stage 1 through stage 4 chronic kidney disease, or unspecified chronic kidney disease; N18.9 Chronic kidney disease, unspecified; I50.9 Heart failure, unspecified; E87.5 Hyperkalemia; M19.91 Primary osteoarthritis, unspecified site; Z98.890 Other specified postprocedural states; Z79.899 Other long term (current) drug therapy; Z88.0 Allergy status to penicillin; Z88.2 Allergy status to sulfonamides; Z88.8 Allergy status to other drugs, medicaments and biological substances
CPT/HCPCS: 36415; 71045; 80053; 83880; 84484; 85025; 93005; 94640; 94644; 96374; 96375; J1815

== ENCOUNTER 2021-01-19 11:49 | Outpatient (CLI) | payer MEDICARE ==
[2021-01-19 12:46] LABS: Albumin 3.7 g/dL (3.9-5); Calcium 8.9 mg/dL (8.4-10.2)
== END 2021-01-19 11:50 | disposition home or self-care (01) ==
LOC: LAB 11:49
PROVIDERS: ATTEND Internal Medicine Nephrology
DX: N18.4 Chronic kidney disease, stage 4 (severe) (principal)
CPT/HCPCS: 36415; 80048; 82040; 84100

== ENCOUNTER 2021-01-21 18:40 | Observation (INO) | payer MEDICARE ==
--- NOTE | 2021-01-21 19:48 | Emergency Department Report ---
ED Chest Pain HPI - General Chief Complaint: Chest Pain Stated Complaint: NIRAV/CHEST PAIN PUI?: No Time Seen by Provider: 01/21/21 19:42 Source: patient Mode of arrival: Stretcher Limitations: No Limitations - History of Present Illness Initial Comments: Patient is an 80-year-old female who presents emergency room with complaints of chest pain and shortness of breath. Patient states her symptoms started 4 days ago. Patient states that her symptoms are worsening and unbearable. Patient states she is having left-sided chest pain is nonradiating. Patient states the pain is a 10 out of 10. Patient states that pain is better with rest and worse with exertion. Patient states that shortness of breath is better with rest and worse with exertion. Patient states she has history of CHF, pacemaker and COPD and is on 3 L of home oxygen.. Patient denies cough and fevers. Patient denies chills. Patient denies diaphoresis. Patient denies nausea vomiting. Patient denies recent travel. Patient denies recent international travel. Patient denies exposure to the novel coronavirus. Patient denies sick contacts. Patient denies fever and chills. Patient denies cough. Patient denies diarrhea. Patient denies coming in contact with anybody with symptoms of the novel coronavirus. MD Complaint: chest pain -: Sudden Onset: during rest Pain Location: left chest Pain Radiation: none Severity: severe Severity scale (0 -10): 10 Quality: sharp Consistency: constant Improves With: rest Worsens With: exertion re: dyspnea. denies: nausea, vomting, diaphoresis, sense of impending doom Other Symptoms: denies: cough, fever, syncope, rash, acid taste in mouth, leg swelling, palpitations, burping Treatments Prior to Arrival: aspirin Aspirin use within the Past 7 Days: (1) Yes - Related Data On Oral Contraceptives: No Home Medications Medication Instructions Recorded Confirmed Last Taken Sodium Polystyrene Sulfonate 15 gm PO 3XW 03/26/20 07/07/20 Unknown [Kalexate] Previous Rx's Medication Instructions Recorded Last Taken Type ALBUTEROL Inhaler(NF) [VENTOLIN 2 puff IH Q4H PRN #1 inha 11/01/18 08/07/19 Rx Inhaler(NF)] Budesonide/Formoterol Fumarate 2 puff IH DAILY #1 hfa.aer.ad 11/01/18 08/07/19 Rx [Symbicort 160-4.5 Mcg Inhaler] Famotidine [Pepcid] 20 mg PO DAILY #30 tablet 11/01/18 08/07/19 Rx Ipratropium/Albuterol Sulfate 1 ampul IH TIDRT PRN #30 ampul.neb 11/01/18 08/07/19 Rx [DUONEB *Not for PRN Use*] Mirtazapine [Remeron 30mg TAB] 30 mg PO QHS PRN #30 tablet 11/01/18 08/07/19 Rx levoFLOXacin [Levaquin TAB] 500 mg PO QDAY #3 tablet 07/08/20 Unknown Rx predniSONE [Deltasone] 40 mg PO QDAY #8 tab 07/08/20 Unknown Rx traMADoL [Ultram 50 MG tab] 50 mg PO Q6HR PRN #12 07/08/20 Unknown Rx Allergies Allergy/AdvReac Type Severity Reaction Status Date / Time aspirin Allergy Hives Verified 03/15/18 13:11 Penicillins Allergy Hives Verified 03/15/18 13:11 Sulfa (Sulfonamide Allergy Hives Verified 03/15/18 13:11 Antibiotics) Heart Score - HEART Score History: Moderately suspicious EKG: Non-specific Age: > 65 Risk factors: > 3 risk factors or hx of atherosclerotic disease Troponin: < normal limit HEART Score: 6 ED Review of Systems ROS: Stated complaint: NIRAV/CHEST PAIN Other details as noted in HPI Constitutional: denies: chills, fever Eyes: denies: eye pain, eye discharge, vision change ENT: denies: ear pain, throat pain Respiratory: shortness of breath, SOB with exertion, SOB at rest. denies: cough, wheezing Cardiovascular: as per HPI, chest pain, dyspnea on exertion. denies: palpitations Endocrine: no symptoms reported Gastrointestinal: denies: abdominal pain, nausea, diarrhea Genitourinary: denies: urgency, dysuria, discharge Musculoskeletal: denies: back pain, joint swelling, arthralgia Skin: denies: rash, lesions Neurological: denies: headache, weakness, paresthesias Psychiatric: denies: anxiety, depression Hematological/Lymphatic: denies: easy bleeding, easy bruising ED Past Medical Hx - Past Medical History Previous Medical History?: Yes Hx Hypertension: Yes Hx CVA: Yes (x 2) Hx Heart Attack/AMI: No Hx Congestive Heart Failure: Yes Hx Diabetes: No Hx Deep Vein Thrombosis: No Hx Pulmonary Embolism: No Hx Renal Disease: Yes Hx Arthritis: Yes Hx Kidney Stones: No Hx Asthma: No Hx COPD: Yes Hx Tuberculosis: No Hx HIV: No Additional medical history: Chronic Bronchitis - Surgical History Past Surgical History?: Yes Hx Coronary Stent: No Hx Open Heart Surgery: Yes Hx Pacemaker: Yes Hx Internal Defibrillator: No Hx Cholecystectomy: No Hx Appendectomy: No Hx Breast Surgery: No Additional Surgical History: Right Knee Surgery , demand pacemaker (90's). Hyst. cataract removal in both eyes, - Family History Family history: no significant - Social History Smoking Status: Never Smoker Substance Use Type: None - Medications Home Medications: Home Medications Medication Instructions Recorded Confirmed Last Taken Type ALBUTEROL Inhaler(NF) [VENTOLIN 2 puff IH Q4H PRN #1 inha 11/01/18 07/07/20 08/07/19 Rx Inhaler(NF)] Budesonide/Formoterol Fumarate 2 puff IH DAILY #1 hfa.aer.ad 11/01/18 07/07/20 08/07/19 Rx [Symbicort 160-4.5 Mcg Inhaler] Famotidine [Pepcid] 20 mg PO DAILY #30 tablet 11/01/18 07/07/20 08/07/19 Rx Ipratropium/Albuterol Sulfate 1 ampul IH TIDRT PRN #30 ampul.neb 11/01/18 07/07/20 08/07/19 Rx [DUONEB *Not for PRN Use*] Mirtazapine [Remeron 30mg TAB] 30 mg PO QHS PRN #30 tablet 11/01/18 07/07/20 08/07/19 Rx Sodium Polystyrene Sulfonate 15 gm PO 3XW 03/26/20 07/07/20 Unknown History [Kalexate] levoFLOXacin [Levaquin TAB] 500 mg PO QDAY #3 tablet 07/08/20 Unknown Rx predniSONE [Deltasone] 40 mg PO QDAY #8 tab 07/08/20 Unknown Rx traMADoL [Ultram 50 MG tab] 50 mg PO Q6HR PRN #12 07/08/20 Unknown Rx ED Physical Exam - General Limitations: No Limitations General appearance: alert, in no apparent distress - Head Head exam: Present: atraumatic, normocephalic - Eye Eye exam: Present: normal appearance - ENT ENT exam: Present: mucous membranes moist - Neck Neck exam: Present: normal inspection - Respiratory Respiratory exam: Present: wheezes. Absent: respiratory distress, chest wall tenderness - Cardiovascular Cardiovascular Exam: Present: regular rate, normal rhythm. Absent: systolic murmur, diastolic murmur, rubs, gallop - GI/Abdominal GI/Abdominal exam: Present: soft, normal bowel sounds - Extremities Exam Extremities exam: Present: normal inspection - Back Exam Back exam: Present: normal inspection - Neurological Exam Neurological exam: Present: alert, oriented X3 - Psychiatric Psychiatric exam: Present: normal affect, normal mood - Skin Skin exam: Present: warm, dry, intact, normal color. Absent: rash ED Course - Reevaluation(s) Reevaluation #1: Patient will be given duo nebs and Solu-Medrol. I discussed all results with patient. I discussed plan of care with patient. Patient agrees with plan of care and admission. Patient to be admitted to the hospitalist service. 01/21/21 21:24 - Consultations Consultation #1: I discussed all results with patient. I discussed plan of care with patient. Patient agrees with plan of care and admission. Patient to be admitted to the h ospitalist service. 01/21/21 21:26 SHIRAZ score - Shiraz Score Age > 65: (1) Yes Aspirin use within the Past 7 Days: (0) No 3 or more CAD Risk Factors: (1) Yes 2 or more Angina events in past 24 hrs: (0) No Known CAD with more than 50% Stenosis: (0) No Elevated Cardiac Markers: (0) No ST Deviation Greater than 0.5mm: (0) No SHIRAZ Score: 2 ED Medical Decision Making - Lab Data Result diagrams: 01/21/21 19:51 01/21/21 19:51 - EKG Data -: EKG Interpreted by Me EKG shows normal: sinus rhythm, intervals, QRS complexes, ST-T waves Rate: normal - EKG Data Interpretation: LVH, other (PVCs noted. [place] deviation, LVH,) - Radiology Data Radiology results: report reviewed, image reviewed interpreted by me: Chest x-ray: No pneumonia, no pneumothorax, pacer in place, no osseous findings, no acute findings CHEST 1 VIEW 01/21/2021 7:25 PM INDICATION / CLINICAL INFORMATION: Chest Pain. COMPARISON: 01/14/2021. FINDINGS: SUPPORT DEVICES: Unchanged. HEART / MEDIASTINUM: Stable. LUNGS / PLEURA: No significant pulmonary or pleural abnormality. No pneumothorax. ADDITIONAL FINDINGS: No significant additional findings. IMPRESSION: No acute cardiopulmonary abnormality. No significant change from 01/14/2021. - Medical Decision Making Patient is an 80-year-old female that presents emergency room with complaints of chest pain shortness of breath. Patient on home oxygen of 3 L and oxygen saturation is 98% on 3 L. Patient had labs done which were essentially unremarkable except for anemia, acute on chronic renal failure. Patient had a chest x-ray which was negative for acute findings. Patient had an EKG which was negative for acute findings. I personally reviewed the chest x-ray and EKG. Patient's labs are consistent with a COPD exacerbation. Patient given Solu- Medrol and a DuoNeb. Patient admitted to the hospital service for further evaluation treatment. Critical care time documented due to the multiple reassessments, prolonged time at the bedside, interpretation of diagnostics and labs. - Differential Diagnosis ACS, chest pain, CHF, COPD, shortness of breath, pneumonia Critical Care Time: Yes Critical care time in (mins) excluding proc time.: 35 Critical care attestation.: If time is entered above; I have spent that time in minutes in the direct care of this critically ill patient, excluding procedure time. Critical Care Time: 35 minutes ED Disposition Clinical Impression: COPD exacerbation, SOB (shortness of breath) Renal failure Qualifiers: Renal failure chronicity: acute on chronic Acute renal failure type: unspecified Chronic kidney disease stage: unspecified stage Qualified Code(s): N17.9 - Acute kidney failure, unspecified; N18.9 - Chronic kidney disease, unspecified Chest pain Qualifiers: Chest pain type: unspecified Qualified Code(s): R07.9 - Chest pain, unspecified Chronic respiratory failure Qualifiers: Respiratory failure complication: hypoxia Qualified Code(s): J96.11 - Chronic respiratory failure with hypoxia Anemia Qualifiers: Anemia type: unspecified type Qualified Code(s): D64.9 - Anemia, unspecified Disposition: DC-09 OP ADMIT IP TO THIS HOSP Is pt being admited?: Yes Does the pt Need Aspirin: No Condition: Critical Instructions: Chronic Bronchitis (ED) Time of Disposition: 21:23
[2021-01-21 20:01] LABS: Basophils % (Auto) 0.4 % (0.0-1.8); Eosinophils # (Auto) 0.4 K/mm3 (0.0-0.4); Eosinophils % (Auto) 7.5 % (0.0-4.3); Hemoglobin 9.1 gm/dl (10.1-14.3); Lymphocytes # (Auto) 1.1 K/mm3 (1.2-5.4); Lymphocytes % (Auto) 22.4 % (13.4-35.0); Mean Corpuscular HGB Conc 32 % (30-34); Mean Corpuscular Volume 87 fl (79-97); Monocytes # (Auto) 0.5 K/mm3 (0.0-0.8); Platelet Count 174 K/mm3 (140-440); Red Blood Count 3.22 M/mm3 (3.65-5.03); Red Cell Distribution Width 15.4 % (13.2-15.2)
[2021-01-21 20:24] LABS: Albumin 3.8 g/dL (3.9-5); Calcium 8.4 mg/dL (8.4-10.2)
--- NOTE | 2021-01-21 20:47 | XRay Report ---
CHEST 1 VIEW 01/21/2021 7:25 PM INDICATION / CLINICAL INFORMATION: Chest Pain. COMPARISON: 01/14/2021. FINDINGS: SUPPORT DEVICES: Unchanged. HEART / MEDIASTINUM: Stable. LUNGS / PLEURA: No significant pulmonary or pleural abnormality. No pneumothorax. ADDITIONAL FINDINGS: No significant additional findings. IMPRESSION: No acute cardiopulmonary abnormality. No significant change from 01/14/2021. Signer Name: Steffen Brownlee MD Signed: 01/21/2021 8:42 PM Workstation Name: [id number]
[2021-01-21] MEDS ORDERED: IPRATROPIUM/ALBUTEROL SULFATE 3 ML AMPUL.NEB IH ONE (21:21)
[2021-01-21] MEDS ORDERED: methylPREDNISolone Sod Succinate 125 MG/2 ML INJ IV ONE (21:21)
[2021-01-21] MEDS ORDERED: ONDANSETRON 4 MG/2 ML INJ IV PRN (23:03)
[2021-01-21] MEDS ORDERED: MORPHINE 2 MG/1 ML INJ IV PRN (23:03)
[2021-01-21] MEDS ORDERED: ACETAMINOPHEN 325 MG TAB PO PRN (23:04)
[2021-01-22] MEDS: HEPARIN 5,000 UNIT/1 ML VIAL SUB-Q SCH ×3 (00:26→22:16)
--- NOTE | 2021-01-22 04:23 | History and Physical Report ---
History of Present Illness Date of examination: 01/21/21 Date of admission: 01/21/21 21:29 Chief complaint: CHEST PAIN, SHORTNESS OF BREATH, CHEST PAIN History of present illness: History of presenting illness, patient is an 80-year-old female who says she has been having pressure-like chest pain going on for about 4 to 5 days and associated with shortness of breath and wheezing. Pain is nonradiating, there is no history of nausea or vomiting, there is no history of fever or chills and no history of diaphoresis, no history of cough. Past History Past Medical History: arthritis, COPD, heart failure, hypertension, renal failure, stroke, other (BRONCHITIE) Medications and Allergies Allergies Allergy/AdvReac Type Severity Reaction Status Date / Time aspirin Allergy Hives Verified 03/15/18 13:11 Penicillins Allergy Hives Verified 03/15/18 13:11 Sulfa (Sulfonamide Allergy Hives Verified 03/15/18 13:11 Antibiotics) Home Medications Medication Instructions Recorded Confirmed Last Taken Type ALBUTEROL Inhaler(NF) [VENTOLIN 2 puff IH Q4H PRN #1 inha 11/01/18 07/07/20 08/07/19 Rx Inhaler(NF)] Budesonide/Formoterol Fumarate 2 puff IH DAILY #1 hfa.aer.ad 11/01/18 07/07/20 08/07/19 Rx [Symbicort 160-4.5 Mcg Inhaler] Famotidine [Pepcid] 20 mg PO DAILY #30 tablet 11/01/18 07/07/20 08/07/19 Rx Ipratropium/Albuterol Sulfate 1 ampul IH TIDRT PRN #30 ampul.neb 11/01/18 07/07/20 08/07/19 Rx [DUONEB *Not for PRN Use*] Mirtazapine [Remeron 30mg TAB] 30 mg PO QHS PRN #30 tablet 11/01/18 07/07/2008/16 Rx Sodium Polystyrene Sulfonate 15 gm PO 3XW 03/26/20 07/07/20 Unknown History [Kalexate] levoFLOXacin [Levaquin TAB] 500 mg PO QDAY #3 tablet 07/08/20 Unknown Rx predniSONE [Deltasone] 40 mg PO QDAY #8 tab 07/08/20 Unknown Rx traMADoL [Ultram 50 MG tab] 50 mg PO Q6HR PRN #12 07/08/20 Unknown Rx Active Meds: Active Medications Acetaminophen (Acetaminophen 325 Mg Tab) 650 mg PO Q4H PRN PRN Reason: Headache Albuterol/Ipratropium (Ipratropium/Albuterol Sulfate 3 Ml Ampul.Neb) 1 ampul IH ONCE ONE Stop: 01/21/21 21:22 Last Admin: 01/21/21 21:47 Dose: 1 ampul Documented by: Albuterol/Ipratropium (Ipratropium/Albuterol Sulfate 3 Ml Ampul.Neb) 1 ampul IH QIDRT [facility] Heparin Sodium (Porcine) (Heparin 5,000 Unit/1 Ml Vial) 5,000 unit SUB-Q Q12HR [facility] Last Admin: 01/22/21 00:26 Dose: 5,000 unit Documented by: Levofloxacin/Dextrose (Levaquin 750mg/150ml) 750 mg in 150 mls @ 100 mls/hr IV Q24H [facility]; Protocol Last Admin: 01/22/21 00:43 Dose: 100 mls/hr Documented by: Methylprednisolone Sodium Succinate (Methylprednisolone Sod Succinate 125 Mg/2 Ml Inj) 125 mg IV ONCE ONE Stop: 01/21/21 21:22 Last Admin: 01/21/21 22:01 Dose: 125 mg Documented by: Methylprednisolone Sodium Succinate (Methylprednisolone Sod Succinate 125 Mg/2 Ml Inj) 80 mg IV Q8HR [facility] Morphine Sulfate (Morphine 2 Mg/1 Ml Inj) 2 mg IV Q4H PRN PRN Reason: Pain, Moderate (4-6) Nitroglycerin (Nitroglycerin 2% Oint 1 Gm) 0.5 inch TP QIDNTG [facility]; Protocol Ondansetron HCl (Ondansetron 4 Mg/2 Ml Inj) 4 mg IV Q8H PRN PRN Reason: Nausea And Vomiting Review of Systems Constitutional: no fever, no chills, no sweats, no night sweats, no fatigue, no weakness, no malaise Eyes: bilateral: other (NO BILATERAL EYE SYMPTOMS) Ears, nose, mouth and throat: no ear pain Breasts: deferred Cardiovascular: chest pain, shortness of breath, dyspnea on exertion, no orthopnea, no palpitations, no rapid/irregular heart beat, no edema, no syncope, no lightheadedness Respiratory: shortness of breath, dyspnea on exertion, congestion, wheezing, no cough, no cough with sputum, no excessive sputum, no hemoptysis Gastrointestinal: no abdominal pain, no nausea, no vomiting, no diarrhea, no constipation Genitourinary Female: no Menstruation: postmenopausal Rectal: no pain Musculoskeletal: no neck stiffness, no neck pain, no low back pain, no myalgias Integumentary: no rash, no pruritis, no redness, no growths Neurological: no paralysis, no weakness, no parathesias, no numbness, no tingling, no seizures, no syncope, no tremors, no vertigo, no headaches Psychiatric: no anxiety, no depression Endocrine: no polydipsia, no polyuria, no nocturia, no excessive sweating, no palpatations Hematologic/Lymphatic: no easy bruising, no lymphadenopathy Exam - Constitutional Vitals: Temp Pulse Resp BP Pulse Ox 98.0 F 99 H 18 109/58 100 01/21/21 19:05 01/22/21 03:01 01/22/21 03:01 01/22/21 03:01 01/22/21 03:01 General appearance: Present: mild distress - EENT Eyes: Present: PERRL, EOM intact ENT: hearing intact, clear oral mucosa, dentition normal - Neck Neck: Present: supple, normal ROM - Respiratory Respiratory effort: normal - Cardiovascular Rhythm: regular Heart Sounds: Present: S1 & S2. Absent: gallop, systolic murmur, diastolic murmur, click - Extremities Extremities: no ischemia, No edema - Abdominal General gastrointestinal: Present: soft, non-tender, non-distended. Absent: tender, distended, rigid, hepatomegaly, splenomegaly Female genitourinary: Present: deferred - Rectal Rectal Exam: deferred - Integumentary Integumentary: Present: clear, warm, dry - Musculoskeletal Musculoskeletal: strength equal bilaterally - Psychiatric Psychiatric: appropriate mood/affect HEART Score - HEART Score EKG: Non-specific Age: > 65 Risk factors: > 3 risk factors or hx of atherosclerotic disease Troponin: Troponin T 0.015 ng/mL (0.00-0.029) 01/21/21 23:40 Troponin: < normal limit - Critical Actions Critical Actions: 4-6 pts:12-16.6% risk of adverse cardiac event. Should be admitted (PATIENT IS BEING WORKED UP FOR CAD) Results - Labs CBC & Chem 7: 01/21/21 19:51 01/21/21 19:51 Labs: Laboratory Last Values WBC 4.8 K/mm3 (4.5-11.0) 01/21/21 19:51 RBC 3.22 M/mm3 (3.65-5.03) L 01/21/21 19:51 Hgb 9.1 gm/dl (10.1-14.3) L 01/21/21 19:51 Hct 28.0 % (30.3-42.9) L 01/21/21 19:51 MCV 87 fl (79-97) 01/21/21 19:51 MCH 28 pg (28-32) 01/21/21 19:51 MCHC 32 % (30-34) 01/21/21 19:51 RDW 15.4 % (13.2-15.2) H 01/21/21 19:51 Plt Count 174 K/mm3 (140-440) 01/21/21 19:51 Lymph % (Auto) 22.4 % (13.4-35.0) 01/21/21 19:51 [place] % (Auto) 10.0 % (0.0-7.3) H 01/21/21 19:51 Eos % (Auto) 7.5 % (0.0-4.3) H 01/21/21 19:51 Baso % (Auto) 0.4 % (0.0-1.8) 01/21/21 19:51 Lymph # (Auto) 1.1 K/mm3 (1.2-5.4) L 01/21/21 19:51 [place] # (Auto) 0.5 K/mm3 (0.0-0.8) 01/21/21 19:51 Eos # (Auto) 0.4 K/mm3 (0.0-0.4) 01/21/21 19:51 Baso # (Auto) 0.0 K/mm3 (0.0-0.1) 01/21/21 19:51 Seg Neutrophils % 59.7 % (40.0-70.0) 01/21/21 19:51 Seg Neutrophils # 2.9 K/mm3 (1.8-7.7) 01/21/21 19:51 Sodium 143 mmol/L (137-145) 01/21/21 19:51 Potassium 5.0 mmol/L (3.6-5.0) 01/21/21 19:51 Chloride 109.3 mmol/L (98-107) H 01/21/21 19:51 Carbon Dioxide 22 mmol/L (22-30) 01/21/21 19:51 Anion Gap 17 mmol/L 01/21/21 19:51 BUN 33 mg/dL (7-17) H 01/21/21 19:51 Creatinine 2.8 mg/dL (0.6-1.2) H 01/21/21 19:51 Estimated GFR 20 ml/min 01/21/21 19:51 BUN/Creatinine Ratio 12 % 01/21/21 19:51 Glucose 98 mg/dL (65-100) 01/21/21 19:51 Calcium 8.4 mg/dL (8.4-10.2) 01/21/21 19:51 Total Bilirubin 0.20 mg/dL (0.1-1.2) 01/21/21 19:51 AST 12 units/L (5-40) 01/21/21 19:51 ALT 7 units/L (7-56) 01/21/21 19:51 Alkaline Phosphatase 76 units/L (35-129) 01/21/21 19:51 Troponin T 0.015 ng/mL (0.00-0.029) 01/21/21 23:40 NT-Pro-B Natriuret Pep 651.3 pg/mL (0-900) 01/21/21 19:51 Total Protein 6.3 g/dL (6.3-8.2) 01/21/21 19:51 Albumin 3.8 g/dL (3.9-5) L 01/21/21 19:51 Albumin/Globulin Ratio 1.5 % 01/21/21 19:51 Assessment and Plan - Patient Problems (1) COPD exacerbation Onset Date: 06/11/16 Current Visit: Yes Status: Acute Plan to address problem: 1. I.V SOLUMEDROL 2. DUONEBULIZER 3. I.V LEVAQUIN ANTIBIOTIC 4. BIPAP TREATMENT (2) Chest pain Current Visit: Yes Status: Acute Qualifiers: Chest pain type: unspecified Qualified Code(s): R07.9 - Chest pain, unspecified Plan to address problem: 1. SERIAL CARDIAC ENZYMES 2. TYLENOL PO FOR HEADACHE/ FEVER 3. I.V MORPHINE FOR PAIN 4. I.V ZOFRAN FOR NAUSEA AND VOMITING 5. NITRO PASTE 6. CARDIOLOGY CONSULT 7. OXYGEN BY NASAL CANULA (3) NELIDA (acute kidney injury) Current Visit: No Status: Acute Plan to address problem: 1. NEPHROLOGY CONSULT
[2021-01-22] MEDS ORDERED: methylPREDNISolone Sod Succinate 40 MG/1 ML INJ ONE (05:01)
[2021-01-22] MEDS: NITROGLYCERIN 2% OINT 1 GM TP SCH ×4 (06:00→17:16)
[2021-01-22] MEDS: methylPREDNISolone Sod Succinate 125 MG/2 ML INJ IV SCH ×3 (06:00→22:15)
[2021-01-22 06:10] LABS: Creatine Kinase MB 2.2 ng/mL (0.0-4.0)
[2021-01-22] MEDS: IPRATROPIUM/ALBUTEROL SULFATE 3 ML AMPUL.NEB IH SCH ×5 (08:15→19:49)
--- NOTE | 2021-01-22 11:37 | Consultation ---
History of Present Illness - History of Present Illness Consulted to evaluate patient with chronic kidney disease. On interview, pat consuelo patient states she sees Dr. Conrad. I have discussed with him and he will assume care. Will sign off. Past History Past Medical History: arthritis, COPD, heart failure, hypertension, renal failure, stroke, other (BRONCHITIE) Medications and Allergies Allergies Allergy/AdvReac Type Severity Reaction Status Date / Time aspirin Allergy Hives Verified 03/15/18 13:11 Penicillins Allergy Hives Verified 03/15/18 13:11 Sulfa (Sulfonamide Allergy Hives Verified 03/15/18 13:11 Antibiotics) Home Medications Medication Instructions Recorded Confirmed Last Taken Type ALBUTEROL Inhaler(NF) [VENTOLIN 2 puff IH Q4H PRN #1 inha 11/01/18 07/07/20 08/07/19 Rx Inhaler(NF)] Budesonide/Formoterol Fumarate 2 puff IH DAILY #1 hfa.aer.ad 11/01/18 07/07/20 08/07/19 Rx [Symbicort 160-4.5 Mcg Inhaler] Famotidine [Pepcid] 20 mg PO DAILY #30 tablet 11/01/18 07/07/20 08/07/19 Rx Ipratropium/Albuterol Sulfate 1 ampul IH TIDRT PRN #30 ampul.neb 11/01/1808/07/19 Rx [DUONEB *Not for PRN Use*] Mirtazapine [Remeron 30mg TAB] 30 mg PO QHS PRN #30 tablet 11/01/18 07/07/20 08/07/19 Rx Sodium Polystyrene Sulfonate 15 gm PO 3XW 03/26/20 07/07/20 Unknown History [Kalexate] levoFLOXacin [Levaquin TAB] 500 mg PO QDAY #3 tablet 07/08/20 Unknown Rx predniSONE [Deltasone] 40 mg PO QDAY #8 tab 07/08/20 Unknown Rx traMADoL [Ultram 50 MG tab] 50 mg PO Q6HR PRN #12 07/08/20 Unknown Rx Active Meds: Active Medications Acetaminophen (Acetaminophen 325 Mg Tab) 650 mg PO Q4H PRN PRN Reason: Headache Albuterol/Ipratropium (Ipratropium/Albuterol Sulfate 3 Ml Ampul.Neb) 1 ampul IH ONCE ONE Stop: 01/21/21 21:22 Last Admin: 01/21/21 21:47 Dose: 1 ampul Documented by: Albuterol/Ipratropium (Ipratropium/Albuterol Sulfate 3 Ml Ampul.Neb) 1 ampul IH QIDRT [facility] Heparin Sodium (Porcine) (Heparin 5,000 Unit/1 Ml Vial) 5,000 unit SUB-Q Q12HR [facility] Last Admin: 01/22/21 00:26 Dose: 5,000 unit Documented by: Levofloxacin/Dextrose (Levaquin 500mg/100ml) 500 mg in 100 mls @ 100 mls/hr IV Q48H [facility]; Protocol Stop: 01/30/21 22:59 Methylprednisolone Sodium Succinate (Methylprednisolone Sod Succinate 125 Mg/2 Ml Inj) 125 mg IV ONCE ONE Stop: 01/21/21 21:22 Last Admin: 01/21/21 22:01 Dose: 125 mg Documented by: Methylprednisolone Sodium Succinate (Methylprednisolone Sod Succinate 125 Mg/2 Ml Inj) 80 mg IV Q8HR [facility] Morphine Sulfate (Morphine 2 Mg/1 Ml Inj) 2 mg IV Q4H PRN PRN Reason: Pain, Moderate (4-6) Nitroglycerin (Nitroglycerin 2% Oint 1 Gm) 0.5 inch TP QIDNTG [facility]; Protocol Ondansetron HCl (Ondansetron 4 Mg/2 Ml Inj) 4 mg IV Q8H PRN PRN Reason: Nausea And Vomiting Exam - Vital Signs Vital signs: Vital Signs Temp Pulse Resp BP Pulse Ox 98.0 F 95 H 20 136/72 3 L 01/21/21 19:05 01/21/21 19:05 01/21/21 19:05 01/21/21 19:05 01/21/21 19:05 Results - Lab Results 01/21/21 19:51 01/21/21 19:51 Most recent lab results Calcium 8.4 mg/dL (8.4-10.2) 01/21/21 19:51
--- NOTE | 2021-01-22 12:39 | Consultation ---
History of Present Illness Consult date: 01/22/21 Requesting physician: BRITTANY JOSEPH Reason for consult: COPD History of present illness: 80 y/o female, followed by Dr. Castillo who was admitted with chest pain, thought secondary to COPD exacerbation. Briefly required bipap so was admitted to [facility] but now has been weaned to nasal cannula. Stable, no acute issues. Past History Past Medical History: arthritis, COPD, heart failure, hypertension, renal failure, stroke, other (BRONCHITIE) Medications and Allergies Allergies Allergy/AdvReac Type Severity Reaction Status Date / Time aspirin Allergy Hives Verified 03/15/18 13:11 Penicillins Allergy Hives Verified 03/15/18 13:11 Sulfa (Sulfonamide Allergy Hives Verified 03/15/18 13:11 Antibiotics) Home Medications Medication Instructions Recorded Confirmed Last Taken Type ALBUTEROL Inhaler(NF) [VENTOLIN 2 puff IH Q4H PRN #1 inha 11/01/18 07/07/20 08/07/19 Rx Inhaler(NF)] Budesonide/Formoterol Fumarate 2 puff IH DAILY #1 hfa.aer.ad 11/01/18 07/07/20 08/07/19 Rx [Symbicort 160-4.5 Mcg Inhaler] Famotidine [Pepcid] 20 mg PO DAILY #30 tablet 11/01/18 07/07/20 08/07/19 Rx Ipratropium/Albuterol Sulfate 1 ampul IH TIDRT PRN #30 ampul.neb 11/01/18 07/07/20 08/07/19 Rx [DUONEB *Not for PRN Use*] Mirtazapine [Remeron 30mg TAB] 30 mg PO QHS PRN #30 tablet 11/01/18 07/07/20 08/07/19 Rx Sodium Polystyrene Sulfonate 15 gm PO 3XW 03/26/20 07/07/20 Unknown History [Kalexate] levoFLOXacin [Levaquin TAB] 500 mg PO QDAY #3 tablet 07/08/20 Unknown Rx predniSONE [Deltasone] 40 mg PO QDAY #8 tab 07/08/20 Unknown Rx traMADoL [Ultram 50 MG tab] 50 mg PO Q6HR PRN #12 07/08/20 Unknown Rx Active Meds: Active Medications Acetaminophen (Acetaminophen 325 Mg Tab) 650 mg PO Q4H PRN PRN Reason: Headache Albuterol/Ipratropium (Ipratropium/Albuterol Sulfate 3 Ml Ampul.Neb) 1 ampul IH QIDRT [facility] Heparin Sodium (Porcine) (Heparin 5,000 Unit/1 Ml Vial) 5,000 unit SUB-Q Q12HR [facility] Last Admin: 01/22/21 00:26 Dose: 5,000 unit Documented by: Levofloxacin/Dextrose (Levaquin 500mg/100ml) 500 mg in 100 mls @ 100 mls/hr IV Q48H [facility]; Protocol Stop: 01/30/21 22:59 Methylprednisolone Sodium Succinate (Methylprednisolone Sod Succinate 125 Mg/2 Ml Inj) 80 mg IV Q8HR [facility] Morphine Sulfate (Morphine 2 Mg/1 Ml Inj) 2 mg IV Q4H PRN PRN Reason: Pain, Moderate (4-6) Nitroglycerin (Nitroglycerin 2% Oint 1 Gm) 0.5 inch TP QIDNTG [facility]; Protocol Ondansetron HCl (Ondansetron 4 Mg/2 Ml Inj) 4 mg IV Q8H PRN PRN Reason: Nausea And Vomiting Review of Systems All systems: negative Physical Examination Vital signs: Vital Signs Temp Pulse Resp BP Pulse Ox 98.0 F 95 H 20 136/72 3 L 01/21/21 19:05 01/21/21 19:05 01/21/21 19:05 01/21/21 19:05 01/21/21 19:05 General appearance: no acute distress, alert Eyes: non-icteric ENT: oropharynx moist Neck: supple, no JVD Effort: normal Ascultation: Bilateral: clear Percussion: Bilateral: not dull Tactile fremitus: Bilateral: normal Cardiovascular: regular rate and rhythm Gastrointestinal: normoactive bowel sounds, soft, non-tender Extremities: no edema, pink and warm, pulses normal Results - Laboratory Findings CBC and BMP: 01/21/21 19:51 01/21/21 19:51 Abnormal lab findings: Abnormal Labs 01/21/21 01/21/21 19:51 19:51 RBC 3.22 L Hgb 9.1 L Hct 28.0 L RDW 15.4 H [place] % (Auto) 10.0 H Eos % (Auto) 7.5 H Lymph # (Auto) 1.1 L Chloride 109.3 H BUN 33 H Creatinine 2.8 H Albumin 3.8 L - Diagnostic Findings Chest x-ray: image reviewed Assessment and Plan 80 y/o female with acute on chronic respiratory failure secondary to COPD exacerbation. 1. Agree with IV steroids but should switch to Prednisone 60 daily as early as tomorrow and taper as follows: 60 daily for 3 days, 40 daily for 3 days, 20 daily for 3 days then stop. 2. Would stop abx therapy, no infiltrate, white count normal 3. Continue supplemental O2 4. BP control 5. Keep net negative fluid balance Thanks for the consult, will continue to follow. Hopeful discharge to home in the next 24-48 hours. Has follow up with Jonathan already on this upcoming Sunday.
--- NOTE | 2021-01-22 12:44 | Progress Note ---
Subjective Date of service: 01/22/21 Interval history: HPI: patient is an 80-year-old female who says she has been having pressure-like chest pain going on for about 4 to 5 days and associated with shortness of breath and wheezing. Pain is nonradiating, there is no history of nausea or vomiting, there is no history of fever or chills and no history of diaphoresis, no history of cough. 01/22 patient is A&O. feels better and less dyspneic. She is talking well although appears sob. . Has been having increasing sob for 4 days. denies CP. denies cough. Quit smoking 27 years ago. denies f/c. Lab results and CXR reviewe d. Pulmonary note reviewed 12 point ROS unremarkable except as stated above in HPI A/P: COPD exacerbation Cont. IV steriods and aggressive neb treatments will switch to PO prednisone in am per Dr. Hargrove recommendations Abx stopped Hx of heart failure / s/p PPM ECHO results not available pBNP is normal Troponin x 3 - neg. fluid restriction CKD stage 4 Nephrology consulted avoid nephrotoxins Add PPI as there is mod. tenderness in the epigastrium Objective - Constitutional Vitals: Vital Signs - 12hr 01/22/21 01/22/21 01/22/21 01:46 03:01 05:00 Temperature 98.4 F Pulse Rate 89 99 H Pulse Rate [ Bilateral] Respiratory 20 18 Rate Respiratory Rate [Bilateral ] Blood Pressure Blood Pressure 117/67 109/58 [Left] O2 Sat by Pulse 100 100 Oximetry 01/22/21 01/22/21 01/22/21 05:04 05:10 05:20 Temperature Pulse Rate 101 H 99 H 95 H Pulse Rate [ Bilateral] Respiratory 26 H 25 H Rate Respiratory Rate [Bilateral ] Blood Pressure 128/78 128/78 Blood Pressure [Left] O2 Sat by Pulse 99 100 Oximetry 01/22/21 01/22/21 01/22/21 05:30 05:40 05:50 Temperature Pulse Rate 95 H 96 H 90 Pulse Rate [ Bilateral] Respiratory 28 H 19 26 H Rate Respiratory Rate [Bilateral ] Blood Pressure 128/78 128/78 128/78 Blood Pressure [Left] O2 Sat by Pulse 97 100 99 Oximetry 01/22/21 01/22/21 01/22/21 06:00 06:10 06:20 Temperature Pulse Rate 95 H 90 97 H Pulse Rate [ Bilateral] Respiratory 18 18 12 Rate Respiratory Rate [Bilateral ] Blood Pressure 122/81 122/81 122/81 Blood Pressure [Left] O2 Sat by Pulse 99 98 99 Oximetry 01/22/21 01/22/21 01/22/21 06:30 06:40 06:50 Temperature Pulse Rate 98 H 97 H 100 H Pulse Rate [ Bilateral] Respiratory 24 22 22 Rate Respiratory Rate [Bilateral ] Blood Pressure 122/81 122/81 122/81 Blood Pressure [Left] O2 Sat by Pulse 98 98 98 Oximetry 01/22/21 01/22/21 01/22/21 07:00 07:10 07:20 Temperature Pulse Rate 103 H 102 H 99 H Pulse Rate [ Bilateral] Respiratory 22 20 20 Rate Respiratory Rate [Bilateral ] Blood Pressure 122/57 122/57 122/57 Blood Pressure [Left] O2 Sat by Pulse 96 100 100 Oximetry 01/22/21 01/22/21 01/22/21 07:30 07:40 07:50 Temperature Pulse Rate 99 H 98 H 102 H Pulse Rate [ Bilateral] Respiratory 27 H 23 21 Rate Respiratory Rate [Bilateral ] Blood Pressure 122/57 122/57 122/57 Blood Pressure [Left] O2 Sat by Pulse 100 100 100 Oximetry 01/22/21 01/22/21 01/22/21 08:00 08:10 08:20 Temperature 97.3 F L Pulse Rate 109 H 108 H 100 H Pulse Rate [ Bilateral] Respiratory 16 15 22 Rate Respiratory Rate [Bilateral ] Blood Pressure 122/57 141/81 141/81 Blood Pressure [Left] O2 Sat by Pulse 99 99 97 Oximetry 01/22/21 01/22/21 01/22/21 08:27 08:30 08:40 Temperature Pulse Rate 98 H 101 H Pulse Rate [ 100 H Bilateral] Respiratory 21 24 Rate Respiratory 22 Rate [Bilateral ] Blood Pressure 141/81 141/81 Blood Pressure [Left] O2 Sat by Pulse 98 100 98 Oximetry 01/22/21 01/22/21 01/22/21 08:50 09:00 09:10 Temperature Pulse Rate 99 H 103 H 97 H Pulse Rate [ Bilateral] Respiratory 26 H 25 H 27 H Rate Respiratory Rate [Bilateral ] Blood Pressure 141/81 134/82 134/82 Blood Pressure [Left] O2 Sat by Pulse 97 96 97 Oximetry 01/22/21 01/22/21 01/22/21 09:20 09:30 09:40 Temperature Pulse Rate 101 H 109 H 106 H Pulse Rate [ Bilateral] Respiratory 22 21 17 Rate Respiratory Rate [Bilateral ] Blood Pressure 134/82 134/82 134/82 Blood Pressure [Left] O2 Sat by Pulse 94 93 96 Oximetry 01/22/21 01/22/21 01/22/21 09:50 10:00 10:10 Temperature Pulse Rate 110 H 106 H 114 H Pulse Rate [ Bilateral] Respiratory 33 H 20 30 H Rate Respiratory Rate [Bilateral ] Blood Pressure 134/82 126/76 126/76 Blood Pressure [Left] O2 Sat by Pulse 95 94 96 Oximetry 01/22/21 01/22/21 01/22/21 10:20 10:30 10:40 Temperature Pulse Rate 110 H 112 H 111 H Pulse Rate [ Bilateral] Respiratory 10 L 27 H 27 H Rate Respiratory Rate [Bilateral ] Blood Pressure 126/76 126/76 134/82 Blood Pressure [Left] O2 Sat by Pulse 95 96 98 Oximetry 01/22/21 01/22/21 01/22/21 10:50 11:00 11:10 Temperature Pulse Rate 116 H 117 H 110 H Pulse Rate [ Bilateral] Respiratory 32 H 21 30 H Rate Respiratory Rate [Bilateral ] Blood Pressure 134/82 117/67 126/76 Blood Pressure [Left] O2 Sat by Pulse 99 97 95 Oximetry General appearance: Present: mild distress - EENT Eyes: PERRL, EOM intact ENT: hearing intact, clear oral mucosa, no thrush - Neck Neck: supple, normal ROM, no masses or JVD - Respiratory Respiratory effort: normal (mildly sob) Respiratory: bilateral: diminished, rhonchi - Breasts Breasts: deferred - Cardiovascular Rhythm: regular Heart Sounds: Present: S1 & S2 Extremities: No edema - Gastrointestinal General gastrointestinal: Present: soft, tender (mildly tender in the epigastrium). Absent: hepatomegaly, splenomegaly Rectal Exam: deferred - Genitourinary Female genitourinary: deferred - Integumentary Integumentary: clear - Musculoskeletal Musculoskeletal: strength equal bilaterally - Neurologic Neurologic: no focal deficits - Psychiatric Psychiatric: appropriate mood/affect - Labs CBC & Chem 7: 01/21/21 19:51 01/21/21 19:51 Labs: Abnormal lab results 01/21/21 01/21/21 Range/Units 19:51 19:51 RBC 3.22 L (3.65-5.03) M/mm3 Hgb 9.1 L (10.1-14.3) gm/dl Hct 28.0 L (30.3-42.9) % RDW 15.4 H (13.2-15.2) % [place] % (Auto) 10.0 H (0.0-7.3) % Eos % (Auto) 7.5 H (0.0-4.3) % Lymph # (Auto) 1.1 L (1.2-5.4) K/mm3 Chloride 109.3 H (98-107) mmol/L BUN 33 H (7-17) mg/dL Creatinine 2.8 H (0.6-1.2) mg/dL Albumin 3.8 L (3.9-5) g/dL HEART Score - HEART Score EKG: Non-specific Age: > 65 Risk factors: > 3 risk factors or hx of atherosclerotic disease Troponin: Troponin T < 0.010 ng/mL (0.00-0.029) 01/22/21 05:29 Troponin: < normal limit - Critical Actions Critical Actions: 4-6 pts:12-16.6% risk of adverse cardiac event. Should be admitted (PATIENT IS BEING WORKED UP FOR CAD)
--- NOTE | 2021-01-22 16:50 | Consultation ---
History of Present Illness - Reason for Consult Consult date: 01/22/21 acute renal failure, chronic renal failure - History of Present Illness The patient is an 80 YO female who is well known to our service with history significant for HTN, Diastolic CHF, COPD, chronic hypoxic respiratory failure on home O2, SSS s/p PPM, Anemia and CKD stage 4 who presented to [facility] ED 01/21 with c/o chest pain. She describes the chest pain as pressure like on going for 4 to 5 days and associated with shortness of breath and wheezing. Pain is nonradiating. She denies any nausea, vomiting, diarrhea, abd pain, diaphoresis, palpitation, cough, hemoptysis, fever or chills. Patient was admitted with COPD exacerbation. Labs significant for Creat 2.8, BUN 33 and K 5. Nephrology was consulted for further evaluation. Past History Past Medical History: arthritis, COPD, heart failure, hypertension, renal failure, stroke, other (BRONCHITIE) Medications and Allergies Allergies Allergy/AdvReac Type Severity Reaction Status Date / Time aspirin Allergy Hives Verified 03/15/18 13:11 Penicillins Allergy Hives Verified 03/15/18 13:11 Sulfa (Sulfonamide Allergy Hives Verified 03/15/18 13:11 Antibiotics) Home Medications Medication Instructions Recorded Confirmed Last Taken Type ALBUTEROL Inhaler(NF) [VENTOLIN 2 puff IH Q4H PRN #1 inha 11/01/18 01/23/21 08/07/19 Rx Inhaler(NF)] Budesonide/Formoterol Fumarate 2 puff IH DAILY #1 hfa.aer.ad 11/01/18 01/23/21 08/07/19 Rx [Symbicort 160-4.5 Mcg Inhaler] Famotidine [Pepcid] 20 mg PO DAILY #30 tablet 11/01/18 01/23/21 08/07/19 Rx Ipratropium/Albuterol Sulfate 1 ampul IH TIDRT PRN #30 ampul.neb 11/01/18 01/23/21 08/07/19 Rx [DUONEB *Not for PRN Use*] Mirtazapine [Remeron 30mg TAB] 30 mg PO QHS PRN #30 tablet 11/01/18 01/23/21 08/07/19 Rx Sodium Polystyrene Sulfonate 15 gm PO 3XW 03/26/20 01/23/21 Unknown History [Kalexate] levoFLOXacin [Levaquin TAB] 500 mg PO QDAY #3 tablet 07/08/20 01/23/21 Unknown Rx predniSONE [Deltasone] 40 mg PO QDAY #8 tab 07/08/20 01/23/21 Unknown Rx traMADoL [Ultram 50 MG tab] 50 mg PO Q6HR PRN #12 07/08/20 01/23/21 Unknown Rx Active Meds: Active Medications Acetaminophen (Acetaminophen 325 Mg Tab) 650 mg PO Q4H PRN PRN Reason: Headache Albuterol/Ipratropium (Ipratropium/Albuterol Sulfate 3 Ml Ampul.Neb) 1 ampul IH QIDRT [facility] Budesonide (Budesonide 0.5 Mg/2 Ml Nebu) 0.5 mg IH Q12HRT [facility] Heparin Sodium (Porcine) (Heparin 5,000 Unit/1 Ml Vial) 5,000 unit SUB-Q Q12HR [facility] Last Admin: 01/22/21 10:00 Dose: 5,000 unit Documented by: Methylprednisolone Sodium Succinate (Methylprednisolone Sod Succinate 125 Mg/2 Ml Inj) 80 mg IV Q8HR [facility] Last Admin: 01/22/21 14:34 Dose: 80 mg Documented by: Morphine Sulfate (Morphine 2 Mg/1 Ml Inj) 2 mg IV Q4H PRN PRN Reason: Pain, Moderate (4-6) Last Admin: 01/22/21 14:41 Dose: 2 mg Documented by: Nitroglycerin (Nitroglycerin 2% Oint 1 Gm) 0.5 inch TP QIDNTG [facility]; Protocol Last Admin: 01/22/21 14:34 Dose: 0.5 inch Documented by: Ondansetron HCl (Ondansetron 4 Mg/2 Ml Inj) 4 mg IV Q8H PRN PRN Reason: Nausea And Vomiting Last Admin: 01/22/21 14:41 Dose: 4 mg Documented by: Pantoprazole Sodium (Pantoprazole 40 Mg Tab) 40 mg PO QDAC [facility] Review of Systems Constitutional: no weight loss, no weight gain, no fever, no chills Breasts: deferred Cardiovascular: chest pain, shortness of breath, dyspnea on exertion, no orthopnea, no palpitations, no edema, no syncope, no lightheadedness Respiratory: shortness of breath, dyspnea on exertion, wheezing, no cough, no hemoptysis Gastrointestinal: no abdominal pain, no nausea, no vomiting, no diarrhea, no melena Genitourinary Female: no dysuria, no hematuria Rectal: no bleeding Musculoskeletal: no muscle weakness Integumentary: no rash, no jaundice Neurological: no convulsions, no aphasia, no change in speech, no change in mentation, no confusion Exam - Vital Signs Vital signs: Vital Signs Temp Pulse Resp BP Pulse Ox 98.0 F 95 H 20 136/72 3 L 01/21/21 19:05 01/21/21 19:05 01/21/21 19:05 01/21/21 19:05 01/21/21 19:05 Results - Lab Results 01/21/21 19:51 01/21/21 19:51 Most recent lab results Calcium 8.4 mg/dL (8.4-10.2) 01/21/21 19:51 Assessment and Plan 1. Acute kidney injury: Suspect vasomotor NELIDA. Patient is known to have stage 4 CKD and followed by our service. Urine studies. Monitor renal function. Avoid nephrotoxic agents. Meds dosage based on GFR. 2. FEN: Hyperchloremia, monitor. Low potassium diet. Follow lytes. 3. COPD exacerbation: On Steroids, Pulmicort and Duoneb. Monitor. 4. Chronic respiratory failure: NC O2. 5. Chronic Anemia: POA. Subjective: Patient was seen and examined at the bedside. Doing ok. Examination: General appearance: well-developed, appears stated age, no distress HEENT: ATNC, [place], hearing intact, vision intact Neck: neck supple, trachea midline Respiratory: Clear to Auscultation Heart: regular, S1S2, no murmur Gastrointestinal: soft, normoactive bowel sounds, not tender, not distended Integumentary: no rash, warm and dry Neurologic: no focal deficit, no asterixis, alert and oriented x3 Ext: no edema
[2021-01-22] MEDS: PANTOPRAZOLE 40 MG TAB PO SCH (17:16)
[2021-01-22] MEDS: BUDESONIDE 0.5 MG/2 ML NEBU IH SCH (19:50)
[2021-01-23] MEDS: methylPREDNISolone Sod Succinate 125 MG/2 ML INJ IV SCH (05:34)
[2021-01-23] MEDS: NITROGLYCERIN 2% OINT 1 GM TP SCH ×4 (05:35→17:38)
[2021-01-23] MEDS: PANTOPRAZOLE 40 MG TAB PO SCH (07:30)
[2021-01-23] MEDS: BUDESONIDE 0.5 MG/2 ML NEBU IH SCH ×2 (08:17→20:11)
[2021-01-23] MEDS: IPRATROPIUM/ALBUTEROL SULFATE 3 ML AMPUL.NEB IH SCH ×4 (08:17→20:11)
--- NOTE | 2021-01-23 09:27 | Progress Note ---
Assessment and Plan 80 y/o female with acute on chronic respiratory failure secondary to COPD exacerbation. 01/23/21: Change to Prednisone 60 daily and taper as below. STable on baseline oxygen flow from home. As stated below, has follow up with Jonathan scheduled for Sunday. Will see as needed. 1. Agree with IV steroids but should switch to Prednisone 60 daily as early as tomorrow and taper as follows: 60 daily for 3 days, 40 daily for 3 days, 20 d aily for 3 days then stop. 2. Would stop abx therapy, no infiltrate, white count normal 3. Continue supplemental O2 4. BP control 5. Keep net negative fluid balance Thanks for the consult, will continue to follow. Hopeful discharge to home in the next 24-48 hours. Has follow up with Jonathan already on this upcoming Sunday. Subjective Date of service: 01/23/21 Interval history: Patient stable on her baseline O2 flow of 3 liters. No other pulmonary related issues. Objective Vital Signs - 12hr 01/22/21 01/22/21 01/23/21 21:37 22:00 00:00 Temperature 98.5 F Pulse Rate 121 H Respiratory 20 17 Rate Respiratory 18 Rate [Abdomen] Respiratory 18 Rate [Bilateral Hip] Respiratory 18 Rate [Right Knee] Blood Pressure 105/65 Blood Pressure [Left] O2 Sat by Pulse 97 Oximetry 01/23/21 01/23/21 05:32 05:35 Temperature 98.0 F Pulse Rate 100 H 100 H Respiratory 18 Rate Respiratory Rate [Abdomen] Respiratory Rate [Bilateral Hip] Respiratory Rate [Right Knee] Blood Pressure 117/72 Blood Pressure 117/72 [Left] O2 Sat by Pulse 98 Oximetry Constitutional: no acute distress, alert Eyes: non-icteric ENT: oropharynx moist Neck: supple, no JVD Effort: normal Ascultation: Bilateral: clear Percussion: Bilateral: not dull Tactile fremitus: Bilateral: normal Cardiovascular: regular rate and rhythm Gastrointestinal: normoactive bowel sounds, soft, non-tender Extremities: no edema, pink and warm, pulses normal CBC and BMP: 01/21/21 19:51 01/21/21 19:51 Abnormal lab findings: Abnormal Labs 01/21/21 01/21/21 19:51 19:51 RBC 3.22 L Hgb 9.1 L Hct 28.0 L RDW 15.4 H [place] % (Auto) 10.0 H Eos % (Auto) 7.5 H Lymph # (Auto) 1.1 L Chloride 109.3 H BUN 33 H Creatinine 2.8 H Albumin 3.8 L
[2021-01-23] MEDS: HEPARIN 5,000 UNIT/1 ML VIAL SUB-Q SCH ×2 (09:38→22:23)
--- NOTE | 2021-01-23 11:04 | Progress Note ---
Subjective Date of service: 01/23/21 Interval history: HPI: patient is an 80-year-old female who says she has been having pressure-like chest pain going on for about 4 to 5 days and associated with shortness of breath and wheezing. Pain is nonradiating, there is no history of nausea or vomiting, there is no history of fever or chills and no history of diaphoresis, no history of cough. 01/22 patient is A&O. feels better and less dyspneic. She is talking well although appears sob. . Has been having increasing sob for 4 days. denies CP. denies cough. Quit smoking 27 years ago. denies f/c. Lab results and CXR reviewe d. Pulmonary note reviewed 01/23 alert and oriented and states that she feels better but still short of breath with mild exertion. She denies any fever, cough or chest pain. Pulmonary note reviewed. Medications adjusted. Possible discharge tomorrow 12 point ROS unremarkable except as stated above in HPI A/P: COPD exacerbation Slow improvement Cont. aggressive neb treatments switch to PO prednisone today Abx stopped Hx of heart failure / s/p PPM ECHO results not available pBNP is normal Troponin x 3 - neg. fluid restriction Patient wants to see Dr. Judd before she goes home Consult has been placed CKD stage 4 Nephrology consulted avoid nephrotoxins Continue PPI Objective - Constitutional Vitals: Vital Signs - 12hr 01/23/21 01/23/21 01/23/21 00:00 05:32 05:35 Temperature 98.0 F Pulse Rate 100 H 100 H Pulse Rate [ Anterior Bilateral Throughout] Respiratory 17 18 Rate Respiratory Rate [Anterior Bilateral Throughout] Blood Pressure 117/72 Blood Pressure 117/72 [Left] O2 Sat by Pulse 98 Oximetry 01/23/21 08:19 Temperature Pulse Rate Pulse Rate [ 104 H Anterior Bilateral Throughout] Respiratory Rate Respiratory 20 Rate [Anterior Bilateral Throughout] Blood Pressure Blood Pressure [Left] O2 Sat by Pulse 98 Oximetry General appearance: Present: no acute distress, well-nourished - EENT Eyes: PERRL, EOM intact ENT: hearing intact, clear oral mucosa, no thrush - Neck Neck: supple, normal ROM - Respiratory Respiratory effort: normal Respiratory: bilateral: CTA, diminished, negative: rales, rhonchi, wheezing - Cardiovascular Rhythm: regular Heart Sounds: Present: S1 & S2 Extremities: No edema - Gastrointestinal General gastrointestinal: Present: soft, non-tender Rectal Exam: deferred - Genitourinary Female genitourinary: deferred - Integumentary Integumentary: clear - Musculoskeletal Musculoskeletal: strength equal bilaterally - Neurologic Neurologic: no focal deficits - Psychiatric Psychiatric: appropriate mood/affect - Labs CBC & Chem 7: 01/21/21 19:51 01/21/21 19:51 HEART Score - HEART Score EKG: Non-specific Age: > 65 Risk factors: > 3 risk factors or hx of atherosclerotic disease Troponin: Troponin T < 0.010 ng/mL (0.00-0.029) 01/22/21 05:29 Troponin: < normal limit - Critical Actions Critical Actions: 4-6 pts:12-16.6% risk of adverse cardiac event. Should be admitted (PATIENT IS BEING WORKED UP FOR CAD)
--- NOTE | 2021-01-23 11:12 | Progress Note ---
Assessment and Plan 1. Acute kidney injury: Suspect vasomotor NELIDA. Patient is known to have stage 4 CKD and followed by our service. Urine studies. Monitor renal function. Avoid nephrotoxic agents. Meds dosage based on GFR. 2. FEN: Hyperchloremia, monitor. Low potassium diet. Follow lytes. 3. COPD exacerbation: On Steroids, Pulmicort and Duoneb. Monitor. 4. Chronic respiratory failure: NC O2. 5. Chronic Anemia: POA. 6. Constipation: Meds ordered. Subjective: Patient was seen and examined at the bedside. Doing better. Examination: General appearance: well-developed, appears stated age, no distress HEENT: ATNC, FALGUNI, hearing intact, vision intact Neck: neck supple, trachea midline Respiratory: Clear to Auscultation Heart: regular, S1S2, no murmur Gastrointestinal: soft, normoactive bowel sounds, not tender, not distended Integumentary: no rash, warm and dry Neurologic: no focal deficit, no asterixis, alert and oriented x3 Ext: no edema Subjective Date of service: 01/23/21 Objective - Vital Signs Vital signs: Vital Signs - 12hr 01/23/21 01/23/21 01/23/21 00:00 05:32 05:35 Temperature 98.0 F Pulse Rate 100 H 100 H Pulse Rate [ Anterior Bilateral Throughout] Respiratory 17 18 Rate Respiratory Rate [Anterior Bilateral Throughout] Blood Pressure 117/72 Blood Pressure 117/72 [Left] O2 Sat by Pulse 98 Oximetry 01/23/21 08:19 Temperature Pulse Rate Pulse Rate [ 104 H Anterior Bilateral Throughout] Respiratory Rate Respiratory 20 Rate [Anterior Bilateral Throughout] Blood Pressure Blood Pressure [Left] O2 Sat by Pulse 98 Oximetry - Lab 01/21/21 19:51 01/21/21 19:51 Most recent lab results Calcium 8.4 mg/dL (8.4-10.2) 01/21/21 19:51 Medications & Allergies - Medications Allergies/Adverse Reactions: Allergies aspirin Allergy (Verified 03/15/18 13:11) Hives Penicillins Allergy (Verified 03/15/18 13:11) Hives Sulfa (Sulfonamide Antibiotics) Allergy (Verified 03/15/18 13:11) Hives Home Medications: Home Medications Medication Instructions Recorded Confirmed Last Taken Type ALBUTEROL Inhaler(NF) [VENTOLIN 2 puff IH Q4H PRN #1 inha 01/04/19 03/28/21 10/10/19 Rx Inhaler(NF)] Budesonide/Formoterol Fumarate 2 puff IH DAILY #1 hfa.aer.ad 11/01/18 01/23/21 08/07/19 Rx [Symbicort 160-4.5 Mcg Inhaler] Famotidine [Pepcid] 20 mg PO DAILY #30 tablet 11/01/18 01/23/21 08/07/19 Rx Ipratropium/Albuterol Sulfate 1 ampul IH TIDRT PRN #30 ampul.neb 11/01/18 01/23/21 08/07/19 Rx [DUONEB *Not for PRN Use*] Mirtazapine [Remeron 30mg TAB] 30 mg PO QHS PRN #30 tablet 11/01/18 01/23/21 08/07/19 Rx Sodium Polystyrene Sulfonate 15 gm PO 3XW 03/26/20 01/23/21 Unknown History [Kalexate] levoFLOXacin [Levaquin TAB] 500 mg PO QDAY #3 tablet 07/08/20 01/23/21 Unknown Rx predniSONE [Deltasone] 40 mg PO QDAY #8 tab 07/08/20 01/23/21 Unknown Rx traMADoL [Ultram 50 MG tab] 50 mg PO Q6HR PRN #12 07/08/20 01/23/21 Unknown Rx Active Medications: Generic Name Dose Route Start Last Admin Trade Name Freq PRN Reason Stop Dose Admin Acetaminophen 650 mg 01/21/21 23:04 Acetaminophen 325 Mg Tab PO Q4H PRN Headache Albuterol/Ipratropium 1 ampul 01/22/21 08:00 01/23/21 08:17 Ipratropium/Albuterol Sulfate 3 Ml Ampul.Neb IH 1 ampul QIDRT MANE Administration Budesonide 0.5 mg 01/22/21 20:00 01/23/21 08:17 Budesonide 0.5 Mg/2 Ml Nebu IH 0.5 mg Q12HRT MANE Administration Heparin Sodium (Porcine) 5,000 unit 01/21/21 22:45 01/23/21 09:38 Heparin 5,000 Unit/1 Ml Vial SUB-Q 5,000 unit Q12HR MANE Administration Morphine Sulfate 2 mg 01/21/21 23:03 01/22/21 14:41 Morphine 2 Mg/1 Ml Inj IV 2 mg Q4H PRN Administration Pain, Moderate (4-6) Nitroglycerin 0.5 inch 01/22/21 06:00 01/23/21 09:38 Nitroglycerin 2% Oint 1 Gm TP 0.5 inch QIDNTG MANE Administration Protocol Ondansetron HCl 4 mg 01/21/21 23:03 01/22/21 14:41 Ondansetron 4 Mg/2 Ml Inj IV 4 mg Q8H PRN Administration Nausea And Vomiting Pantoprazole Sodium 40 mg 01/22/21 15:00 01/23/21 07:30 Pantoprazole 40 Mg Tab PO 40 mg QDAC MANE Administration Prednisone 60 mg 01/23/21 15:00 Prednisone 20 Mg Tab PO QDAY MANE
[2021-01-23] MEDS ORDERED: POLYETHYLENE GLYCOL 3350 17 GM POWDER PO ONE (11:35)
[2021-01-23] MEDS ORDERED: SODIUM POLYSTYRENE 15 GM/60 ML ORAL LIQD PO ONE (11:35)
[2021-01-23 12:45] LABS: Bilirubin,Urine NEG (Negative); Blood,Urine SM (Negative); Color,Urine Yellow (Yellow); Protein,Urine <15 mg/dL mg/dL (Negative); Urobilinogen,Urine < 2.0 mg/dL (<2.0); WBC,Urine < 1.0 /HPF (0.0-6.0)
--- NOTE | 2021-01-23 13:58 | Consultation ---
History of Present Illness Consult date: 01/23/21 Consult reason: chest pain History of present illness: The patient is an 80-year-old woman with a long history of COPD, dependent on ambulatory oxygen. She has a dual-chamber pacemaker in situ for sinus node dysfunction. She has had extensive prior work-up for coronary artery disease, including angiographically normal coronary arteries on cardiac catheterization in 2008, followed by serial negative thallium stress test most recently in September 2018. She has mild aortic stenosis, followed up on serial echocardiograms. Most recent echocardiogram 6 months ago showed left ventricular ejection fraction 50 to 55%, and a mild aortic valve mean gradient of 6.8. Comorbidities also include chronic kidney disease. She is admitted to the hospital at this time with shortness of breath and exacerbation of COPD. After 24 to 48 hours of intensive COPD treatment, she looks and feels better, and lungs clear. In association with her COPD exacerbation, she also complained of some musculoskeletal type left-sided chest pain, which prompted a cardiac consultation. She specifically notes that her pain was worse when she lay on her left side. Currently, she has no pain or discomfort. EKG was a sinus rhythm, occasional PVCs, and chronic right bundle branch block unchanged. Chest x-ray revealed a normal size cardiac silhouette, dual-chamber pacemaker in situ, and diffuse mild interstitial opacities likely consistent with her severe COPD. Pertinent laboratory findings include serial normal troponin levels, chronic mild anemia with a hematocrit of 28, and chronic kidney disease with a creatinine currently 2.8. Past History Past Medical History: arthritis, COPD, hypertension, renal failure, stroke, other (Mild aortic valve disease) Medications and Allergies Allergies Allergy/AdvReac Type Severity Reaction Status Date / Time aspirin Allergy Hives Verified 03/15/18 13:11 Penicillins Allergy Hives Verified 03/15/18 13:11 Sulfa (Sulfonamide Allergy Hives Verified 03/15/18 13:11 Antibiotics) Home Medications Medication Instructions Recorded Confirmed Last Taken Type ALBUTEROL Inhaler(NF) [VENTOLIN 2 puff IH Q4H PRN #1 inha 11/01/18 01/23/21 08/07/19 Rx Inhaler(NF)] Budesonide/Formoterol Fumarate 2 puff IH DAILY #1 hfa.aer.ad 11/01/18 01/23/21 08/07/19 Rx [Symbicort 160-4.5 Mcg Inhaler] Famotidine [Pepcid] 20 mg PO DAILY #30 tablet 11/01/18 01/23/21 08/07/19 Rx Ipratropium/Albuterol Sulfate 1 ampul IH TIDRT PRN #30 ampul.neb 11/01/18 01/23/21 08/07/19 Rx [DUONEB *Not for PRN Use*] Mirtazapine [Remeron 30mg TAB] 30 mg PO QHS PRN #30 tablet 11/01/18 01/23/21 08/07/19 Rx Sodium Polystyrene Sulfonate 15 gm PO 3XW 03/26/20 01/23/21 Unknown History [Kalexate] levoFLOXacin [Levaquin TAB] 500 mg PO QDAY #3 tablet 07/08/20 01/23/21 Unknown Rx predniSONE [Deltasone] 40 mg PO QDAY #8 tab 07/08/20 01/23/21 Unknown Rx traMADoL [Ultram 50 MG tab] 50 mg PO Q6HR PRN #12 07/08/20 01/23/21 Unknown Rx Active Meds: Active Medications Acetaminophen (Acetaminophen 325 Mg Tab) 650 mg PO Q4H PRN PRN Reason: Headache Albuterol/Ipratropium (Ipratropium/Albuterol Sulfate 3 Ml Ampul.Neb) 1 ampul IH QIDRT [facility] Last Admin: 01/23/21 12:25 Dose: 1 ampul Documented by: Budesonide (Budesonide 0.5 Mg/2 Ml Nebu) 0.5 mg IH Q12HRT [facility] Last Admin: 01/23/21 08:17 Dose: 0.5 mg Documented by: Heparin Sodium (Porcine) (Heparin 5,000 Unit/1 Ml Vial) 5,000 unit SUB-Q Q12HR [facility] Last Admin: 01/23/21 09:38 Dose: 5,000 unit Documented by: Morphine Sulfate (Morphine 2 Mg/1 Ml Inj) 2 mg IV Q4H PRN PRN Reason: Pain, Moderate (4-6) Last Admin: 01/22/21 14:41 Dose: 2 mg Documented by: Nitroglycerin (Nitroglycerin 2% Oint 1 Gm) [facility] Protocol Last Admin: 01/23/21 09:38 Dose: 0.5 inch Documented by: Ondansetron HCl (Ondansetron 4 Mg/2 Ml Inj) 4 mg IV Q8H PRN PRN Reason: Nausea And Vomiting Last Admin: 01/22/21 14:41 Dose: 4 mg Documented by: Pantoprazole Sodium (Pantoprazole 40 Mg Tab) 40 mg PO QDAC [facility] Last Admin: 01/23/21 07:30 Dose: 40 mg Documented by: Prednisone (Prednisone 20 Mg Tab) 60 mg PO QDAY [facility] Review of Systems Cardiovascular: chest pain, shortness of breath, no orthopnea, no palpitations, no rapid/irregular heart beat, no edema, no syncope, no lightheadedness Physical Examination Vital Signs Temp Pulse Resp BP Pulse Ox 98.0 F 95 H 20 136/72 3 L 01/21/21 19:05 01/21/21 19:05 01/21/21 19:05 01/21/21 19:05 01/21/21 19:05 General appearance: no acute distress HEENT: Positive: PERRL Neck: Positive: neck supple Cardiac: Positive: Reg Rate and Rhythm Lungs: Positive: Decreased Breath Sounds Neuro: Positive: Grossly Intact Abdomen: Positive: Soft Female genitourinary: deferred Skin: Positive: Clear Extremities: Absent: edema Results 01/21/21 19:51 01/21/21 19:51 EKG interpretations - Telemetry EKG Rhythm: Sinus Rhythm (With occasional PVC and chronic right bundle branch block) Assessment and Plan - Patient Problems (1) Musculoskeletal chest pain Current Visit: Yes Status: Acute Plan to address problem: We will continue conservative cardiac management, no additional ischemic work-up is indicated for musculoskeletal type chest pain. (2) COPD exacerbation Onset Date: 06/11/16 Current Visit: Yes Status: Acute Plan to address problem: Patient has remarkably improved with aggressive management of her COPD exacerbation.
[2021-01-23 14:26] LABS: Calcium 8.2 mg/dL (8.4-10.2)
[2021-01-23] MEDS: predniSONE 20 MG TAB PO SCH (14:57)
[2021-01-24] MEDS: NITROGLYCERIN 2% OINT 1 GM TP SCH ×3 (06:13→14:48)
[2021-01-24 07:35] LABS: Hematocrit 25.1 % (30.3-42.9); Hemoglobin 8.2 gm/dl (10.1-14.3); Mean Corpuscular HGB Conc 33 % (30-34); Mean Corpuscular Volume 86 fl (79-97); Platelet Count 191 K/mm3 (140-440); Red Blood Count 2.93 M/mm3 (3.65-5.03); Red Cell Distribution Width 15.4 % (13.2-15.2)
[2021-01-24] MEDS ORDERED: SODIUM CHLORIDE 0.9% 500 ML 500 ML IV SCH (08:00)
[2021-01-24] MEDS: IPRATROPIUM/ALBUTEROL SULFATE 3 ML AMPUL.NEB IH SCH ×2 (08:47→13:39)
[2021-01-24] MEDS: BUDESONIDE 0.5 MG/2 ML NEBU IH SCH (08:48)
[2021-01-24] MEDS: PANTOPRAZOLE 40 MG TAB PO SCH (09:14)
[2021-01-24] MEDS ORDERED: MAGNESIUM HYDROXIDE (MOM) ORAL LIQD UDC PO PRN (09:17)
[2021-01-24] MEDS: predniSONE 20 MG TAB PO SCH (09:33)
[2021-01-24] MEDS: HEPARIN 5,000 UNIT/1 ML VIAL SUB-Q SCH (09:34)
--- NOTE | 2021-01-24 10:06 | Discharge Summary ---
Providers - Providers Date of Admission: 01/22/21 18:32 Date of discharge: 01/24/21 Attending physician: BRITTANY JOSEPH 01/21/21 23:06 Consult to Physician [CONS] Routine Comment: Consulting Provider: VISHNU RUIZ Physician Instructions: Reason For Exam: NELIDA 01/22/21 06:00 Consult to Physician [CONS] Routine Comment: called answ. serv./ joey Consulting Provider: TIFFANIE PRICE Physician Instructions: Reason For Exam: CHEST PAIN 01/22/21 09:49 Consult to Physician [CONS] Routine Comment: dr. dinh aware/ joey Consulting Provider: BILLY DINH Physician Instructions: Reason For Exam: copd 01/22/21 15:35 Consult to Physician [CONS] Routine Comment: Consulting Provider: BRAD MELENDEZ Physician Instructions: Reason For Exam: CKD Primary care physician: TOM GARDUNO Hospitalization Condition: Critical Hospital course: HPI: patient is an 80-year-old female who says she has been having pressure-like c hest pain going on for about 4 to 5 days and associated with shortness of breath and wheezing. Pain is nonradiating, there is no history of nausea or vomiting, there is no history of fever or chills and no history of diaphoresis, no history of cough. 01/22 patient is A&O. feels better and less dyspneic. She is talking well although appears sob. . Has been having increasing sob for 4 days. denies CP. denies cough. Quit smoking 27 years ago. denies f/c. Lab results and CXR reviewed. Pulmonary note reviewed 01/23 alert and oriented and states that she feels better but still short of breath with mild exertion. She denies any fever, cough or chest pain. Pulmonary note reviewed. Medications adjusted. Possible discharge tomorrow 01/24 doing well. offers no complaints. states she has not had a BM in 4 days. Mag. citrate 150 ml x 1 dose ordered She is medically stable for discharge. Cardiology and nephrology notes reviewed. lab results reviewed A/P: COPD exacerbation patient states she is at her base line respiratory santoro cont. PO prednisone tapering dose Abx stopped Hx of heart failure / s/p PPM cardiology note reviewed pBNP is normal Troponin x 3 - neg. fluid restriction CKD stage 4 Nephrology consulted and note reviewed avoid nephrotoxins Continue PPI x weeks Disposition: DC-01 TO HOME OR SELFCARE Final Discharge Diagnosis (Prints w/discharge instructions): COPD exacerbation Time spent for discharge: 38 min Core Measure Documentation - Palliative Care Palliative Care/ Comfort Measures: Not Applicable - Core Measures Any of the following diagnoses?: none Exam - Constitutional Vitals: Temp Pulse Resp BP Pulse Ox 98.3 F 87 18 124/64 99 01/24/21 06:12 01/24/21 06:13 01/24/21 06:12 01/24/21 06:13 01/24/21 06:12 General appearance: Present: no acute distress - EENT Eyes: Present: PERRL, EOM intact ENT: hearing intact, clear oral mucosa, no thrush - Neck Neck: Present: supple, normal ROM - Respiratory Respiratory effort: normal Respiratory: bilateral: CTA, diminished, negative: rales, rhonchi, wheezing - Cardiovascular Rhythm: regular Heart Sounds: Present: S1 & S2 - Extremities Extremities: No edema - Abdominal General gastrointestinal: Present: soft, non-tender - Rectal Rectal Exam: deferred - Integumentary Integumentary: Present: clear - Musculoskeletal Musculoskeletal: strength equal bilaterally - Psychiatric Psychiatric: appropriate mood/affect - Neurologic Neurologic: no focal deficits Plan Activity: advance as tolerated Weight Bearing Status: Full Weight Bearing Diet: regular, low fat, low cholesterol Special Instructions: home oxygen via (patient is on home O2 at 3.5 to 4 L/min) Follow up with: TOM GARDUNO MD [Primary Care Provider] - 7 Days BRAD MELENDEZ MD [Staff Physician] - 7 Days TIFFANIE PRICE MD [Staff Physician] - 14 Days ADELAIDA PERERA MD [Staff Physician] - 3 Days Prescriptions: predniSONE [Deltasone] 60 mg PO QDAY #15 tablet
[2021-01-24] MEDS ORDERED: MAGNESIUM CITRATE 300 ML ORAL LIQD PO NR (10:30)
--- NOTE | 2021-01-24 10:56 | Progress Note ---
Assessment and Plan - Patient Problems (1) Musculoskeletal chest pain Current Visit: Yes Status: Acute Plan to address problem: We will continue conservative cardiac management, no additional ischemic work-up is indicated for musculoskeletal type chest pain. (2) COPD exacerbation Onset Date: 06/11/16 Current Visit: Yes Status: Acute Plan to address problem: Patient has remarkably improved with aggressive management of her COPD exacerbation. Subjective Date of service: 01/24/21 Interval history: The patient looks and feels better, no further shortness of breath, lungs are clear. No cardiac complaints. Objective Vital Signs Temp Pulse Pulse Resp Resp Resp Resp 01/24/21 06:13 87 01/24/21 06:12 98.3 F 91 H 18 01/23/21 22:00 18 18 01/23/21 21:42 98.6 F 116 H 16 01/23/21 20:33 01/23/21 20:32 102 H 16 01/23/21 20:00 17 01/23/21 16:59 98.4 F 106 H 18 01/23/21 16:09 100 H 20 01/23/21 12:25 107 H 20 01/23/21 11:31 98.3 F 91 H 17 Resp BP BP Pulse Ox 01/24/21 06:13 124/64 01/24/21 06:12 124/64 99 01/23/21 22:00 18 01/23/21 21:42 128/65 97 01/23/21 20:33 98 01/23/21 20:32 01/23/21 20:00 01/23/21 16:59 107/59 01/23/21 16:09 01/23/21 12:25 01/23/21 11:31 110/57 99 - Physical Examination General: Appears Well, No Apparent Distress HEENT: Positive: PERRL Neck: Positive: neck supple Cardiac: Positive: Reg Rate and Rhythm Lungs: Positive: clear to auscultation Neuro: Positive: Grossly Intact Abdomen: Positive: Soft Skin: Positive: Clear Extremities: Absent: edema - Labs and Meds CBC 01/24/21 Range/Units 06:47 WBC 6.7 (4.5-11.0) K/mm3 RBC 2.93 L (3.65-5.03) M/mm3 Hgb 8.2 L (10.1-14.3) gm/dl Hct 25.1 L (30.3-42.9) % Plt Count 191 (140-440) K/mm3 Comprehensive Metabolic Panel 01/23/21 01/24/21 Range/Units 13:54 06:47 Sodium 140 146 H (137-145) mmol/L Potassium 4.9 4.6 (3.6-5.0) mmol/L Chloride 104.8 109.5 H (98-107) mmol/L Carbon Dioxide 23 25 (22-30) mmol/L BUN 47 H 54 H (7-17) mg/dL Creatinine 3.4 H 3.1 H (0.6-1.2) mg/dL Glucose 155 H 105 H (65-100) mg/dL Calcium 8.2 L 8.0 L (8.4-10.2) mg/dL
[2021-01-24 12:18] VITALS: BP 142/70
--- NOTE | 2021-01-24 13:10 | Progress Note ---
Assessment and Plan 1. Acute kidney injury: Suspect vasomotor NELIDA. Patient is known to have stage 4 CKD and followed by our service. Encouraged PO fluids. Monitor renal function. slight decrease in creatinine level since yesterday. Avoid nephrotoxic agents. Meds dosage based on GFR. 2. FEN: Hyperchloremia, monitor. Low potassium diet. Follow lytes. 3. COPD exacerbation: On Steroids, Pulmicort and Duoneb. Monitor. 4. Chronic respiratory failure: NC O2. 5. Chronic Anemia: POA. F/u with me in 1-2 weeks. Subjective: Patient was seen and examined at the bedside. Doing better. Examination: General appearance: well-developed, appears stated age, no distress HEENT: ATNC, FALGUNI, hearing intact, vision intact Neck: neck supple, trachea midline Respiratory: Clear to Auscultation Heart: regular, S1S2, no murmur Gastrointestinal: soft, normoactive bowel sounds, not tender, not distended Integumentary: no rash, warm and dry Neurologic: no focal deficit, no asterixis, alert and oriented x3 Ext: no edema Subjective Date of service: 01/24/21 Objective - Vital Signs Vital signs: Vital Signs - 12hr 01/24/21 01/24/21 01/24/21 06:12 06:13 11:25 Temperature 98.3 F 98.0 F Pulse Rate 91 H 87 94 H Respiratory 18 18 Rate Blood Pressure 124/64 124/64 142/70 O2 Sat by Pulse 99 99 Oximetry - Lab 01/24/21 06:47 01/24/21 06:47 Most recent lab results Calcium 8.0 mg/dL (8.4-10.2) L 01/24/21 06:47 Urine Creatinine 89.0 mg/dL (0.1-20.0) H 01/23/21 12:20 Urine Sodium 42 mmol/L 01/23/21 12:20 Medications & Allergies - Medications Allergies/Adverse Reactions: Allergies aspirin Allergy (Verified 03/15/18 13:11) Hives Penicillins Allergy (Verified 03/15/18 13:11) Hives Sulfa (Sulfonamide Antibiotics) Allergy (Verified 03/15/18 13:11) Hives Home Medications: Home Medications Medication Instructions Recorded Confirmed Last Taken Type ALBUTEROL Inhaler(NF) [VENTOLIN 2 puff IH Q4H PRN #1 inha 11/01/18 01/23/21 08/07/19 Rx Inhaler(NF)] Budesonide/Formoterol Fumarate 2 puff IH DAILY #1 hfa.aer.ad 11/01/18 01/23/21 08/07/19 Rx [Symbicort 160-4.5 Mcg Inhaler] Famotidine [Pepcid] 20 mg PO DAILY #30 tablet 11/01/18 01/23/21 08/07/19 Rx Ipratropium/Albuterol Sulfate 1 ampul IH TIDRT PRN #30 ampul.neb 11/01/18 0 01/23/21 08/07/19 Rx [DUONEB *Not for PRN Use*] Mirtazapine [Remeron 30mg TAB] 30 mg PO QHS PRN #30 tablet 11/01/18 01/23/21 08/07/19 Rx traMADoL [Ultram 50 MG tab] 50 mg PO Q6HR PRN #12 07/08/20 01/23/21 Unknown Rx Ipratropium/Albuterol Sulfate 1 ampul IH QIDRT ampul.neb 01/24/21 Unknown Rx [DUONEB *Not for PRN Use*] predniSONE [Deltasone] 60 mg PO QDAY #15 tablet 01/24/21 Unknown Rx Active Medications: Generic Name Dose Route Start Last Admin Trade Name Freq PRN Reason Stop Dose Admin Acetaminophen 650 mg 01/21/21 23:04 Acetaminophen 325 Mg Tab PO Q4H PRN Headache Albuterol/Ipratropium 1 ampul 01/22/21 08:00 01/24/21 08:47 Ipratropium/Albuterol Sulfate 3 Ml Ampul.Neb IH 1 ampul QIDRT MANE Administration Budesonide 0.5 mg 01/22/21 20:00 01/24/21 08:48 Budesonide 0.5 Mg/2 Ml Nebu IH 0.5 mg Q12HRT MANE Administration Heparin Sodium (Porcine) 5,000 unit 01/21/21 22:45 01/24/21 09:34 Heparin 5,000 Unit/1 Ml Vial SUB-Q 5,000 unit Q12HR MANE Administration Sodium Chloride 500 mls @ 50 mls/hr 01/24/21 08:00 Nacl 0.9% 500 Ml IV DIRECT MANE Magnesium Citrate 150 ml 01/24/21 10:30 01/24/21 12:15 Magnesium Citrate 300 Ml Oral Liqd PO 01/24/21 14:00 150 ml ONCE@1030 NR Administration Magnesium Hydroxide 30 ml 01/24/21 09:17 01/24/21 09:32 Magnesium Hydroxide (Mom) Oral Liqd Udc PO 30 ml Q4H PRN Administration Constipation Morphine Sulfate 2 mg 01/21/21 23:03 01/22/21 14:41 Morphine 2 Mg/1 Ml Inj IV 2 mg Q4H PRN Administration Pain, Moderate (4-6) Nitroglycerin 0.5 inch 01/22/21 06:00 01/24/21 09:34 Nitroglycerin 2% Oint 1 Gm TP 0.5 inch QIDNTG MANE Administration Protocol Ondansetron HCl 4 mg 01/21/21 23:03 01/22/21 14:41 Ondansetron 4 Mg/2 Ml Inj IV 4 mg Q8H PRN Administration Nausea And Vomiting Pantoprazole Sodium 40 mg 01/22/21 15:00 01/24/21 09:14 Pantoprazole 40 Mg Tab PO 40 mg QDAC MANE Administration Prednisone 60 mg 01/23/21 15:00 01/24/21 09:33 Prednisone 20 Mg Tab PO 60 mg QDAY MANE Administration
--- NOTE | 2021-01-24 13:37 | Progress Note ---
Assessment and Plan 80 y/o female with acute on chronic respiratory failure secondary to COPD exacerbation. 01/24/21: No objection to discharge today. Stable on baseline flow. Steroid taper as below. 01/23/21: Change to Prednisone 60 daily and taper as below. STable on baseline oxygen flow from home. As stated below, has follow up with Jonathan scheduled for Sunday. Will see as needed. 1. Agree with IV steroids but should switch to Prednisone 60 daily as early as tomorrow and taper as follows: 60 daily for 3 days, 40 daily for 3 days, 20 daily for 3 days then stop. 2. Would stop abx therapy, no infiltrate, white count normal 3. Continue supplemental O2 4. BP control 5. Keep net negative fluid balance Thanks for the consult, will continue to follow. Hopeful discharge to home in the next 24-48 hours. Has follow up with Jonathan already on this upcoming Sunday. Subjective Date of service: 01/24/21 Interval history: No acute events. Discharge order in place. Pulm status is stable. Objective Vital Signs - 12hr 01/24/21 01/24/21 01/24/21 06:12 06:13 11:25 Temperature 98.3 F 98.0 F Pulse Rate 91 H 87 94 H Respiratory 18 18 Rate Blood Pressure 124/64 124/64 142/70 O2 Sat by Pulse 99 99 Oximetry Constitutional: no acute distress, alert Eyes: non-icteric ENT: oropharynx moist Neck: supple, no JVD Effort: normal Ascultation: Bilateral: clear Percussion: Bilateral: not dull Tactile fremitus: Bilateral: normal Cardiovascular: regular rate and rhythm Gastrointestinal: normoactive bowel sounds, soft, non-tender Extremities: no edema, pink and warm, pulses normal CBC and BMP: 01/24/21 06:47 01/24/21 06:47 Abnormal lab findings: Abnormal Labs 01/21/21 01/21/21 01/23/21 19:51 19:51 12:20 RBC 3.22 L Hgb 9.1 L Hct 28.0 L RDW 15.4 H Runnels % (Auto) 10.0 H Eos % (Auto) 7.5 H Lymph # (Auto) 1.1 L Sodium Chloride 109.3 H BUN 33 H Creatinine 2.8 H Glucose Calcium Albumin 3.8 L Urine Creatinine 89.0 H 01/23/21 01/24/21 01/24/21 13:54 06:47 06:47 RBC 2.93 L Hgb 8.2 L Hct 25.1 L RDW 15.4 H Runnels % (Auto) Eos % (Auto) Lymph # (Auto) Sodium 146 H Chloride 109.5 H BUN 47 H 54 H Creatinine 3.4 H 3.1 H Glucose 155 H 105 H Calcium 8.2 L 8.0 L Albumin Urine Creatinine
--- NOTE | 2021-01-26 08:37 | Electrocardiograph Report ---
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
== END 2021-01-24 15:00 | disposition home or self-care (01) ==
LOC: ED 18:40 → UNDOADMOB 21:29 → 4A 21:29 → IMCU 23:10 → 4A 23:10 → IMCU 01-22 01:39 → 3A 01-22 18:32 → IMCU 01-22 18:32 → 4A 01-22 18:32 → 3A 01-22 19:07
PROVIDERS: ADMIT Internal Medicine; ATTEND Internal Medicine
DX: J96.11 Chronic respiratory failure with hypoxia (principal); J44.1 Chronic obstructive pulmonary disease with (acute) exacerbation; R07.89 Other chest pain; N17.9 Acute kidney failure, unspecified; I13.0 Hypertensive heart and chronic kidney disease with heart failure and stage 1 through stage 4 chronic kidney disease, or unspecified chronic kidney disease; I50.9 Heart failure, unspecified; N18.4 Chronic kidney disease, stage 4 (severe); D63.1 Anemia in chronic kidney disease; M19.90 Unspecified osteoarthritis, unspecified site; Z86.73 Personal history of transient ischemic attack (TIA), and cerebral infarction without residual deficits; Z95.0 Presence of cardiac pacemaker; Z98.41 Cataract extraction status, right eye; Z98.42 Cataract extraction status, left eye; Z98.890 Other specified postprocedural states
CPT/HCPCS: 36415; 71045; 80048; 80053; 81001; 82550; 82553; 82570; 83880; 84300; 84484; 85025; 85027; 93005; 94640; 96365; 96372; 96375; 96376; 99291; G0378; J1644; J1956; J2270; J2405; J2920; J2930; J7512; 94644

== ENCOUNTER 2021-02-14 11:28 | Outpatient (CLI) | payer MEDICARE ==
[2021-02-14 12:18] LABS: Albumin 4.1 g/dL (3.9-5); Calcium 8.7 mg/dL (8.4-10.2)
== END 2021-02-14 11:29 | disposition home or self-care (01) ==
LOC: LAB 11:28
PROVIDERS: ATTEND Internal Medicine Nephrology
DX: N18.4 Chronic kidney disease, stage 4 (severe) (principal)
CPT/HCPCS: 36415; 80048; 82040; 84100

== ENCOUNTER 2021-03-09 12:12 | Inpatient (IN) | payer MEDICARE ==
[2021-03-09] MEDS ORDERED: IPRATROPIUM 0.02% NEBU 2.5 ML IH ONE (12:34)
[2021-03-09] MEDS ORDERED: AZITHROMYCIN/NS 500 MG/250 ML 500 MG/250 ML BAG IV ONE (12:34)
[2021-03-09] MEDS: ALBUTEROL 2.5 MG/3 ML NEBU IH ONE (12:38)
--- NOTE | 2021-03-09 13:02 | XRay Report ---
CHEST 1 VIEW 03/09/2021 12:33 PM INDICATION / CLINICAL INFORMATION: sob. COMPARISON: 01/21/21 FINDINGS: SUPPORT DEVICES: None. HEART / MEDIASTINUM: Stable. Left-sided dual-lead cardiac pacemaker is unchanged. Mild bilateral eloisa r prominence is likely related to pulmonary arteries. LUNGS / PLEURA: No significant pulmonary or pleural abnormality. No pneumothorax. ADDITIONAL FINDINGS: No significant additional findings. IMPRESSION: 1. No acute findings. No significant change. Signer Name: Court Sterling MD Signed: 03/09/2021 12:57 PM Workstation Name: [id number]
--- NOTE | 2021-03-09 13:35 | Emergency Department Report ---
ED Shortness of Breath HPI - General Chief Complaint: Dyspnea/Respdistress Stated Complaint: SOB Time Seen by Provider: 03/09/21 12:31 Source: patient, EMS Mode of arrival: Wheelchair Limitations: Physical Limitation - History of Present Illness Initial Comments: Ms. English is a very pleasant 80-year-old -Citizen Of [place] female that comes to the emergency room complaining of shortness of breath. The patient wears 3 L nasal cannula at home. However, she states that despite her oxygen she has had for 2 days increasing shortness of breath and chest pressure. She denies any purulent sputum. She denies fever or chills. She denies any nausea vomiting or diarrhea. She denies Covid immunization. She denies having Covid. Patient lives alone. Her daughter just recently had surgery and lives across [facility]. Home medications are per the med rec with the addition of a heart pill. Patient cannot tell me what that heart pill is or the name of it. -: Gradual, days(s) Severity: mild Quality: aching Consistency: intermittent Improves With: oxygen Worsens With: lying flat, exertion, eating, movement Known History Of: COPD Associated Symptoms: denies other symptoms, chest pain Treatments Prior to Arrival: oxygen - Related Data Home Oxygen Therapy: Yes Previous Rx's Medication Instructions Recorded Last Taken Type ALBUTEROL Inhaler(NF) [VENTOLIN 2 puff IH Q4H PRN #1 inha 11/01/18 08/07/19 Rx Inhaler(NF)] Budesonide/Formoterol Fumarate 2 puff IH DAILY #1 hfa.aer.ad 11/01/18 08/07/19 Rx [Symbicort 160-4.5 Mcg Inhaler] Famotidine [Pepcid] 20 mg PO DAILY #30 tablet 11/01/18 08/07/19 Rx Mirtazapine [Remeron 30mg TAB] 30 mg PO QHS PRN #30 tablet 11/01/18 08/07/19 Rx Ipratropium/Albuterol Sulfate 1 ampul IH QIDRT ampul.neb 01/24/21 Unknown Rx [DUONEB *Not for PRN Use*] Allergies Allergy/AdvReac Type Severity Reaction Status Date / Time aspirin Allergy Hives Verified 03/09/21 15:03 Penicillins Allergy Hives Verified 03/09/21 15:03 Sulfa (Sulfonamide Allergy Hives Verified 03/09/21 15:03 Antibiotics) ED Review of Systems ROS: Stated complaint: SOB Other details as noted in HPI Comment: All other systems reviewed and negative ED Past Medical Hx - Past Medical History Previous Medical History?: Yes Hx Hypertension: Yes Hx CVA: Yes (x 2) Hx Heart Attack/AMI: No Hx Congestive Heart Failure: Yes Hx Diabetes: No Hx Deep Vein Thrombosis: No Hx Pulmonary Embolism: No Hx Liver Disease: No Hx Renal Disease: Yes Hx of Cancer: No Hx Sickle Cell Disease: No Hx Arthritis: Yes Hx Headaches / Migraines: No Hx Seizures: No Hx Kidney Stones: No Hx Psychiatric Treatment: No Hx Asthma: No Hx COPD: Yes (known retainer) Hx Tuberculosis: No Hx Dementia: No Hx HIV: No Additional medical history: Chronic Bronchitis - Surgical History Past Surgical History?: Yes Hx Coronary Stent: No Hx Open Heart Surgery: Yes Hx Pacemaker: Yes Hx Internal Defibrillator: No Hx Cholecystectomy: No Hx Appendectomy: No Hx Breast Surgery: No Additional Surgical History: Right Knee Surgery , demand pacemaker (90's). Hyst. cataract removal in both eyes, - Family History Family history: no significant - Social History Smoking Status: Former Smoker Substance Use Type: None - Medications Home Medications: Home Medications Medication Instructions Recorded Confirmed Last Taken Type ALBUTEROL Inhaler(NF) [VENTOLIN 2 puff IH Q4H PRN #1 inha 11/01/18 01/23/21 08/07/19 Rx Inhaler(NF)] Budesonide/Formoterol Fumarate 2 puff IH DAILY #1 hfa.aer.ad 11/01/18 01/23/21 08/07/19 Rx [Symbicort 160-4.5 Mcg Inhaler] Famotidine [Pepcid] 20 mg PO DAILY #30 tablet 11/01/18 01/23/21 08/07/19 Rx Mirtazapine [Remeron 30mg TAB] 30 mg PO QHS PRN #30 tablet 11/01/18 01/23/21 08/07/19 Rx Ipratropium/Albuterol Sulfate 1 ampul IH QIDRT ampul.neb 01/24/21 Unknown Rx [DUONEB *Not for PRN Use*] ED Physical Exam - General Limitations: Physical Limitation General appearance: alert, in no apparent distress - Head Head exam: Present: atraumatic, normocephalic - Eye Eye exam: Present: normal appearance - ENT ENT exam: Present: mucous membranes moist - Neck Neck exam: Present: normal inspection - Respiratory Respiratory exam: Present: normal lung sounds bilaterally, wheezes. Absent: respiratory distress - Cardiovascular Cardiovascular Exam: Present: regular rate, normal rhythm. Absent: systolic murmur, diastolic murmur, rubs, gallop - GI/Abdominal GI/Abdominal exam: Present: soft, normal bowel sounds - Extremities Exam Extremities exam: Present: normal inspection - Back Exam Back exam: Present: normal inspection - Neurological Exam Neurological exam: Present: alert, oriented X3 - Psychiatric Psychiatric exam: Present: normal affect, normal mood - Skin Skin exam: Present: warm, dry, intact, normal color. Absent: rash ED Course Vital Signs 03/09/21 03/09/21 12:18 13:29 Temperature 98.6 F Pulse Rate 94 H Pulse Rate [ 88 Anterior Bilateral Throughout] Respiratory 30 H Rate Respiratory 22 Rate [Anterior Bilateral Throughout] Blood Pressure 131/63 [Right] O2 Sat by Pulse 99 Oximetry - Reevaluation(s) Reevaluation #1: 03/09/21 15:[address] Coleman. Given that the patient with activity has desaturations despite being on 5 L nasal cannula and ongoing shortness of breath despite respiratory treatments we are placing her on BiPAP. Patient denies wearing BiPAP at home. Dr. Smith has been notified of patient's need for admission. He is asked that we get a gas in 1 hour. Respiratory therapy has been notified Reevaluation #2: 03/09/21 15:55 Patient has been updated on the need for BiPAP and the plan of care. I have asked her to call her daughter and update her daughter. ED Medical Decision Making - Lab Data Result diagrams: 03/09/21 13:14 03/09/21 13:14 - EKG Data EKG shows normal: sinus rhythm Rate: normal - EKG Data When compared to previous EKG there are: no significant change Interpretation: no acute changes - Radiology Data Radiology results: report reviewed, image reviewed nap - Medical Decision Making Lab Results 03/09/21 03/09/21 03/09/21 Range/Units 13:05 13:14 13:14 WBC 5.7 (4.5-11.0) K/mm3 RBC 3.36 L (3.65-5.03) M/mm3 Hgb 9.6 L (10.1-14.3) gm/dl Hct 29.7 L (30.3-42.9) % MCV 89 (79-97) fl MCH 29 (28-32) pg MCHC 32 (30-34) % RDW 16.6 H (13.2-15.2) % Plt Count 127 L (140-440) K/mm3 Lymph % (Auto) 15.8 (13.4-35.0) % [place] % (Auto) 11.8 H (0.0-7.3) % Eos % (Auto) 5.2 H (0.0-4.3) % Baso % (Auto) 0.2 (0.0-1.8) % Lymph # (Auto) 0.9 L (1.2-5.4) K/mm3 [place] # (Auto) 0.7 (0.0-0.8) K/mm3 Eos # (Auto) 0.3 (0.0-0.4) K/mm3 Baso # (Auto) 0.0 (0.0-0.1) K/mm3 Seg Neutrophils % 67.0 (40.0-70.0) % Seg Neutrophils # 3.8 (1.8-7.7) K/mm3 D-Dimer (0-234) ng/mlDDU ABG pH 7.278 L (7.320-7.450) POC ABG pCO2 57.5 H (32.0-48.0) mmHg POC ABG pO2 77.2 L (83-108) mmHg POC ABG HCO3 26.3 ABG O2 Saturation 94.8 (0-100) POC ABG Base Excess -1.2 ABG Hemoglobin 11.0 L (12.0-17.5) ABG Oxyhemoglobin 94.1 (94-98) ABG Methemoglobin 0.3 (0.0-1.5) ABG Sodium 141.2 (136.0-145.0) mmol/L ABG Potassium 4.8 H (3.40-4.50) mmol/L ABG Chloride 109.0 H (98-107) mmol/L ABG Glucose 86 (65-95) mg/dL Carboxyhemoglobin 0.4 L (0.5-1.5) FiO2 % 28.0 Sodium 143 (137-145) mmol/L Potassium 4.9 (3.6-5.0) mmol/L Chloride 107.3 H (98-107) mmol/L Carbon Dioxide 29 (22-30) mmol/L Anion Gap 12 mmol/L BUN 25 H (7-17) mg/dL Creatinine 2.1 H (0.6-1.2) mg/dL Estimated GFR 27 ml/min BUN/Creatinine Ratio 12 % Glucose 80 (65-100) mg/dL Calcium 8.6 (8.4-10.2) mg/dL Magnesium 1.80 (1.7-2.3) mg/dL Total Bilirubin 0.20 (0.1-1.2) mg/dL AST 14 (5-40) units/L ALT 9 (7-56) units/L Alkaline Phosphatase 60 (35-129) units/L Troponin T (0.00-0.029) ng/mL NT-Pro-B Natriuret Pep (0-900) pg/mL Total Protein 6.8 (6.3-8.2) g/dL Albumin 3.7 L (3.9-5) g/dL Albumin/Globulin Ratio 1.2 % Arterial Blood Glucose 86 (65-95) mg/dL Arterial Blood Ionized Calcium 4.7 (4.6-5.3) mg/dL 03/09/21 03/09/21 Range/Units 13:14 13:14 WBC (4.5-11.0) K/mm3 RBC (3.65-5.03) M/mm3 Hgb (10.1-14.3) gm/dl Hct (30.3-42.9) % MCV (79-97) fl MCH (28-32) pg MCHC (30-34) % RDW (13.2-15.2) % Plt Count (140-440) K/mm3 Lymph % (Auto) (13.4-35.0) % [place] % (Auto) (0.0-7.3) % Eos % (Auto) (0.0-4.3) % Baso % (Auto) (0.0-1.8) % Lymph # (Auto) (1.2-5.4) K/mm3 [place] # (Auto) (0.0-0.8) K/mm3 Eos # (Auto) (0.0-0.4) K/mm3 Baso # (Auto) (0.0-0.1) K/mm3 Seg Neutrophils % (40.0-70.0) % Seg Neutrophils # (1.8-7.7) K/mm3 D-Dimer 1135.55 H (0-234) ng/mlDDU ABG pH (7.320-7.450) POC ABG pCO2 (32.0-48.0) mmHg POC ABG pO2 (83-108) mmHg POC ABG HCO3 ABG O2 Saturation (0-100) POC ABG Base Excess ABG Hemoglobin (12.0-17.5) ABG Oxyhemoglobin (94-98) ABG Methemoglobin (0.0-1.5) ABG Sodium (136.0-145.0) mmol/L ABG Potassium (3.40-4.50) mmol/L ABG Chloride (98-107) mmol/L ABG Glucose (65-95) mg/dL Carboxyhemoglobin (0.5-1.5) FiO2 % Sodium (137-145) mmol/L Potassium (3.6-5.0) mmol/L Chloride (98-107) mmol/L Carbon Dioxide (22-30) mmol/L Anion Gap mmol/L BUN (7-17) mg/dL Creatinine (0.6-1.2) mg/dL Estimated GFR ml/min BUN/Creatinine Ratio % Glucose (65-100) mg/dL Calcium (8.4-10.2) mg/dL Magnesium (1.7-2.3) mg/dL Total Bilirubin (0.1-1.2) mg/dL AST (5-40) units/L ALT (7-56) units/L Alkaline Phosphatase (35-129) units/L Troponin T 0.015 (0.00-0.029) ng/mL NT-Pro-B Natriuret Pep 505.6 (0-900) pg/mL Total Protein (6.3-8.2) g/dL Albumin (3.9-5) g/dL Albumin/Globulin Ratio % Arterial Blood Glucose (65-95) mg/dL Arterial Blood Ionized Calcium (4.6-5.3) mg/dL Labs have been noted. Troponin is negative. Patient has no EKG changes on 12-lead. BNP is 505. P vargas is on no diuretics at home. She does state that she takes a heart pill but cannot tell me what it is for or what the name of it is. Patient had a normal echo at the end of 2019. Patient has a mildly elevated D-dimer. Note that she has had a D-dimer in the past in the 3000s and had a VQ scan which was indeterminate. Patient has no history of DVT or PE and she is on no anticoagulation at home including no aspirin. She is not tachycardic or hypotensive. I think the etiology of her breathing is more from her COPD than PE but this remains on her list of differentials. She has an acute on chronic kidney injury so a CTA would be not without consequences. I also do not think she would be able to lie flat in order to get the CTA. Patient has a long history of COPD and is on 3 L nasal cannula at home. Patient states that her activity tolerance as of recent has worsened. On arrival to [facility] she was wheezing. She was given albuterol and Atrovent, Solu- Medrol and azithromycin. Initially she seemed to improve. However, noted that over the course of the next hour as long as she was sitting still and not moving in the bed her saturation was in the low 90s. However, with any activity, talking or using the bedpan she would desaturate into the 70s. Case has been staffed with Dr. Coleman. Dr. Smith has been notified of the need for patient admission for acute on chronic hypoxic and hypercapnic respiratory failure; with several comorbid conditions including acute on chronic anemia, acute on chronic renal insufficiency. 1547 BiPAP is been initiated-patient saturation with any activity is in the high 70s. Plan for an ABG in [address] Smith's request. Dr. Smith to see the patient for admission. Vital Signs 03/09/21 03/09/21 12:18 13:29 Temperature 98.6 F Pulse Rate 94 H Pulse Rate [ 88 Anterior Bilateral Throughout] Respiratory 30 H Rate Respiratory 22 Rate [Anterior Bilateral Throughout] Blood Pressure 131/63 [Right] O2 Sat by Pulse 99 Oximetry - Differential Diagnosis copd ae; pna; covid; hf Critical care attestation.: If time is entered above; I have spent that time in minutes in the direct care of this critically ill patient, excluding procedure time. ED Disposition Clinical Impression: COPD exacerbation, Acute on chronic respiratory failure with hypoxia and hypercapnia, Chronic anemia, Elevated d-dimer Disposition: OP ADMIT IP TO THIS HOSP Is pt being admited?: Yes Does the pt Need Aspirin: No Condition: Stable Instructions: Chronic Obstructive Pulmonary Disease (ED) Time of Disposition: 15:51
[2021-03-09 13:50] LABS: Basophils % (Auto) 0.2 % (0.0-1.8); Eosinophils # (Auto) 0.3 K/mm3 (0.0-0.4); Eosinophils % (Auto) 5.2 % (0.0-4.3); Hematocrit 29.7 % (30.3-42.9); Hemoglobin 9.6 gm/dl (10.1-14.3); Lymphocytes # (Auto) 0.9 K/mm3 (1.2-5.4); Lymphocytes % (Auto) 15.8 % (13.4-35.0); Mean Corpuscular HGB Conc 32 % (30-34); Mean Corpuscular Volume 89 fl (79-97); Monocytes # (Auto) 0.7 K/mm3 (0.0-0.8); Monocytes % (Auto) 11.8 % (0.0-7.3); Platelet Count 127 K/mm3 (140-440); Red Blood Count 3.36 M/mm3 (3.65-5.03); Red Cell Distribution Width 16.6 % (13.2-15.2)
[2021-03-09 14:02] LABS: Albumin 3.7 g/dL (3.9-5); Calcium 8.6 mg/dL (8.4-10.2)
[2021-03-09] MEDS ORDERED: ALBUTEROL 2.5 MG/3 ML NEBU IH PRN (16:28)
--- NOTE | 2021-03-09 16:28 | History and Physical Report ---
History of Present Illness History of present illness: 80 YO Female with HTN, CVA, ND, OA, Asthma, COPD on 3L Home Oxygen, CAD, CHF, presents to ED for evaluation. The patient is confused, somnolent at the time my evaluation and is unable to provide history. Patient history taken from EMS staff, ED staff. Patient staff reports that patient reported "shortness of breath". Over the past 2 days with persistently worsening symptoms over the s maryan timeframe. EMS notified, and upon arrival the patient was found to be in distress and transported to [facility]. Pt seen and evaluated in ED. All lab and image studies reviewed. Patient found to have a pulse oximetry of 88% on room air which is consistent with acute hypoxemic respiratory failure. Patient underwent chest x-ray which revealed bilateral infiltrate which is consistent with pneumonia. Patient found to be using accessory muscles to breathe, as well as having confusion. Pt was using accessory muscles to breathe, and is unable to speak in complete sentences. Pt is slumped over in bed and is unable to recline due to shortness of breath. Patient was treated with supplemental oxygen without significant improvement in symptoms. The patient was ultimately placed on noninvasive positive pressure ventilation. Patient symptoms mildly improved which was followed by increased somnolence. Patient admitted to IMCU and initiated on pneumonia protocol as well as coronavirus protocol. No further history is obtainable. The patient is lethargic, confused, as well as somnolent but has a positive gag reflex and is able to protect her airway without difficulty at this time. Prior admission on 07/07/2020 reviewed. All medication listed at time of admission has been reconciled. Advanced care planning conducted in ED. Past History Past Surgical History: CABG, , hysterectomy, total knee replacement, Other ( pacemaker) Social history: Family history: hypertension Medications and Allergies Allergies Allergy/AdvReac Type Severity Reaction Status Date / Time aspirin Allergy Hives Verified 03/09/21 15:03 Penicillins Allergy Hives Verified 03/09/21 15:03 Sulfa (Sulfonamide Allergy Hives Verified 03/09/21 15:03 Antibiotics) Home Medications Medication Instructions Recorded Confirmed Last Taken Type ALBUTEROL Inhaler(NF) [VENTOLIN 2 puff IH Q4H PRN #1 inha 11/01/18 01/23/21 08/07/19 Rx Inhaler(NF)] Budesonide/Formoterol Fumarate 2 puff IH DAILY #1 hfa.aer.ad 11/01/18 01/23/21 08/07/19 Rx [Symbicort 160-4.5 Mcg Inhaler] Famotidine [Pepcid] 20 mg PO DAILY #30 tablet 11/01/18 01/23/21 08/07/19 Rx Mirtazapine [Remeron 30mg TAB] 30 mg PO QHS PRN #30 tablet 11/01/18 01/23/21 08/07/19 Rx Ipratropium/Albuterol Sulfate 1 ampul IH QIDRT ampul.neb 01/24/21 Unknown Rx [DUONEB *Not for PRN Use*] Active Meds: Active Medications Sodium Chloride (Nacl 0.9% 500 Ml) 500 mls @ 50 mls/hr IV DIRECT MANE Review of Systems ROS unobtainable: due to mental status Exam - Constitutional Vitals: Temp Pulse Resp BP Pulse Ox 98.6 F 89 19 155/87 100 03/09/21 12:18 03/09/21 15:56 03/09/21 15:56 03/09/21 15:56 03/09/21 15:56 General appearance: Present: severe distress - EENT Eyes: Present: PERRL ENT: hearing decreased - Neck Neck: Present: supple, normal ROM - Respiratory Respiratory effort: labored, accessory muscle use Respiratory: bilateral: diminished, rhonchi - Cardiovascular Heart Sounds: Present: S1 & S2. Absent: rub, click - Extremities Extremities: pulses symmetrical, No edema Peripheral Pulses: within normal limits - Abdominal General gastrointestinal: Present: soft, non-tender, non-distended, normal bowel sounds Female genitourinary: Present: normal - Integumentary Integumentary: Present: clear, dry, clammy, decreased turgor - Musculoskeletal Musculoskeletal: generalized weakness - Psychiatric Psychiatric: no appropriate mood/affect, no intact judgment & insight, no memory intact - Neurologic Neurologic: CNII-XII intact, no focal deficits, moves all extremities, no gait normal HEART Score - HEART Score Troponin: Troponin T 0.012 ng/mL (0.00-0.029) 03/09/21 15:11 Results - Labs CBC & Chem 7: 03/09/21 13:14 03/09/21 13:14 Labs: Abnormal lab results 03/09/21 03/09/21 03/09/21 Range/Units 13:05 13:14 13:14 RBC 3.36 L (3.65-5.03) M/mm3 Hgb 9.6 L (10.1-14.3) gm/dl Hct 29.7 L (30.3-42.9) % RDW 16.6 H (13.2-15.2) % Plt Count 127 L (140-440) K/mm3 [place] % (Auto) 11.8 H (0.0-7.3) % Eos % (Auto) 5.2 H (0.0-4.3) % Lymph # (Auto) 0.9 L (1.2-5.4) K/mm3 D-Dimer (0-234) ng/mlDDU ABG pH 7.278 L (7.320-7.450) POC ABG pCO2 57.5 H (32.0-48.0) mmHg POC ABG pO2 77.2 L (83-108) mmHg ABG Hemoglobin 11.0 L (12.0-17.5) ABG Potassium 4.8 H (3.40-4.50) mmol/L ABG Chloride 109.0 H (98-107) mmol/L Carboxyhemoglobin 0.4 L (0.5-1.5) Chloride 107.3 H (98-107) mmol/L BUN 25 H (7-17) mg/dL Creatinine 2.1 H (0.6-1.2) mg/dL Albumin 3.7 L (3.9-5) g/dL 03/09/21 Range/Units 13:14 RBC (3.65-5.03) M/mm3 Hgb (10.1-14.3) gm/dl Hct (30.3-42.9) % RDW (13.2-15.2) % Plt Count (140-440) K/mm3 [place] % (Auto) (0.0-7.3) % Eos % (Auto) (0.0-4.3) % Lymph # (Auto) (1.2-5.4) K/mm3 D-Dimer 1135.55 H (0-234) ng/mlDDU ABG pH (7.320-7.450) POC ABG pCO2 (32.0-48.0) mmHg POC ABG pO2 (83-108) mmHg ABG Hemoglobin (12.0-17.5) ABG Potassium (3.40-4.50) mmol/L ABG Chloride (98-107) mmol/L Carboxyhemoglobin (0.5-1.5) Chloride (98-107) mmol/L BUN (7-17) mg/dL Creatinine (0.6-1.2) mg/dL Albumin (3.9-5) g/dL Assessment and Plan - Patient Problems (1) Acute and chronic respiratory failure Current Visit: Yes Status: Acute Qualifiers: Respiratory failure complication: hypoxia Qualified Code(s): J96.21 - Acute and chronic respiratory failure with hypoxia Plan to address problem: Supplemental oxygen, pulse oximetry, nebulizer therapy, noninvasive positive pressure ventilation, chest x-ray, VQ scan ordered and is pending at time of admission, (2) Suspected 2019-nCoV infection Current Visit: Yes Status: Acute Plan to address problem: Coronavirus protocol: Contact precautions, isolation precautions, supplemental oxygen, pulse oximetry, nebulizer therapy, prone positioning while in bed, IV antibiotic therapy, IV steroid therapy, coronavirus PCR ordered and is pending at time of admission. (3) Pneumonia Current Visit: Yes Status: Acute Plan to address problem: Pneumonia protocol: Chest x-ray, CBC, CMP, IV antibiotic therapy, supplemental oxygen, pulse oximetry, nebulizer therapy, blood culture. (4) NELIDA (acute kidney injury) Current Visit: No Status: Acute Plan to address problem: Monitor urine output every shift, continue medical management, BMP, repeat BMP in a.m. to monitor serum creatinine as well as GFR. (5) DVT prophylaxis Current Visit: Yes Status: Acute Plan to address problem: SCD to bilateral lower extremities while in bed, continue therapeutic anticoagulation (6) Advance care planning Current Visit: Yes Status: Acute Plan to address problem: Disease education conducted, care plan discussed, prognosis discussed, patient is full code, +30 minutes.
[2021-03-09] MEDS: AZITHROMYCIN/NS 500 MG/250 ML 500 MG/250 ML BAG IV SCH (17:14)
[2021-03-10 05:09] LABS: Basophils % (Auto) 0.4 % (0.0-1.8); Eosinophils # (Auto) 0.4 K/mm3 (0.0-0.4); Eosinophils % (Auto) 5.6 % (0.0-4.3); Hematocrit 31.6 % (30.3-42.9); Hemoglobin 10.4 gm/dl (10.1-14.3); Lymphocytes # (Auto) 1.7 K/mm3 (1.2-5.4); Lymphocytes % (Auto) 25.8 % (13.4-35.0); Mean Corpuscular HGB Conc 33 % (30-34); Mean Corpuscular Volume 88 fl (79-97); Monocytes # (Auto) 0.7 K/mm3 (0.0-0.8); Monocytes % (Auto) 10.4 % (0.0-7.3); Platelet Count 136 K/mm3 (140-440); Red Blood Count 3.59 M/mm3 (3.65-5.03); Red Cell Distribution Width 16.7 % (13.2-15.2)
[2021-03-10 05:18] LABS: Calcium 8.9 mg/dL (8.4-10.2)
[2021-03-10] MEDS: SODIUM CHLORIDE 0.9% 500 ML 500 ML IV SCH (06:26)
--- NOTE | 2021-03-10 11:01 | Nuclear Medicine Report ---
Nuclear medicine perfusion scan INDICATION: Shortness of breath. Chest pain TECHNIQUE: A total of 5.2 mCi of technetium 99 MAA injected IV per protocol. Ventilation images were not performed secondary to Covid precautions. Planar images obtained COMPARISON: Chest radiograph performed 03/09/2021. FINDINGS: There are multiple small and intermediate-sized perfusion abnormalities involving both lowe r lungs. IMPRESSION: Multiple perfusion abnormalities of the lower lungs. Pulmonary thromboembolus cannot be e xcluded. Signer Name: Jules Mosqueda MD Signed: 03/10/2021 10:56 AM Workstation Name: [id number]
--- NOTE | 2021-03-10 12:06 | Electrocardiograph Report ---
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
[2021-03-10] MEDS: ALBUTEROL 2.5 MG/3 ML NEBU IH ONE (13:49)
[2021-03-10] MEDS ORDERED: MIRTAZAPINE 30 MG TAB PO PRN (13:59)
--- NOTE | 2021-03-10 15:30 | Progress Note ---
Assessment and Plan Assessment and plan: 80 YO Female with HTN, CVA, ND, OA, Asthma, COPD on 3L Home Oxygen, CAD, CHF, presents to ED for evaluation. The patient is confused, somnolent at the time my evaluation and is unable to provide history. Patient history taken from EMS staff, ED staff. Patient staff reports that patient reported "shortness of breath". Over the past 2 days with persistently worsening symptoms over the same timeframe. EMS notified, and upon arrival the patient was found to be in distress and transported to [facility]. Pt seen and evaluated in ED. All lab and image studies reviewed. Patient found to have a pulse oximetry of 88% on room air which is consistent with acute hypoxemic respiratory failure. Patient underwent chest x-ray which revealed bilateral infiltrate which is consistent with pneumonia. Patient found to be using accessory muscles to breathe, as well as having confusion. Pt was using accessory muscles to breathe, and is unable to speak in complete sentences. Pt is slumped over in bed and is unable to recline due to shortness of breath. Patient was treated with supplemental oxygen without significant improvement in symptoms. The patient was ultimately placed on noninvasive positive pressure ventilation. Patient symptoms mildly improved which was followed by increased somnolence. Patient admitted to IMCU and initiated on pneumonia protocol as well as coronavirus protocol. No further h istory is obtainable. The patient is lethargic, confused, as well as somnolent but has a positive gag reflex and is able to protect her airway without difficulty at this time. Prior admission on 07/07/2020 reviewed. All medication listed at time of admission has been reconciled. Advanced care planning conducted in ED. 03/10: CXR reviewed, no acute pathology. Patient showing some improvement, now taken off BiPAP but left BiPAP at the bedside, Patient downgraded to Med surge, continue on steroids, Pulmonary consulted. Mental status is improved with improving strength. Continue current management Start Full dose lovenox due to concern for Pulmonary embolisim with abnormal V/Q Scan Patient also has mild anemia will monitor closely. (1) Acute and chronic respiratory failure Current Visit: Yes Status: Acute Qualifiers: Respiratory failure complication: hypoxia Qualified Code(s): J96.21 - Acute and chronic respiratory failure with hypoxia Plan to address problem: Supplemental oxygen, pulse oximetry, nebulizer therapy, noninvasive positive pressure ventilation, chest x-ray, VQ scan ordered and is pending at time of admission, (2) Suspected 2019-nCoV infection Current Visit: Yes Status: Acute Plan to address problem: Coronavirus protocol: Contact precautions, isolation precautions, supplemental oxygen, pulse oximetry, nebulizer therapy, prone positioning while in bed, IV antibiotic therapy, IV steroid therapy, coronavirus PCR ordered and is pending at time of admission. (3) Pneumonia Current Visit: Yes Status: Acute Plan to address problem: Pneumonia protocol: Chest x-ray, CBC, CMP, IV antibiotic therapy, supplemental oxygen, pulse oximetry, nebulizer therapy, blood culture. (4) NELIDA (acute kidney injury) Current Visit: No Status: Acute Plan to address problem: Monitor urine output every shift, continue medical management, BMP, repeat BMP in a.m. to monitor serum creatinine as well as GFR. (5) DVT prophylaxis Current Visit: Yes Status: Acute Plan to address problem: SCD to bilateral lower extremities while in bed, continue therapeutic anticoagulation (6) Advance care planning Current Visit: Yes Status: Acute Plan to address problem: Disease education conducted, care plan discussed with the patient, prognosis discussed, patient is full code, +30 minutes. The high probability of a clinically significant, sudden or life threatening deterioration of the [PULMONARY] system(s) required my full and direct attention, intervention and personal management. The aggregate critical care walt e was [35] minutes. This time is in addition to time spent performing reported procedures but includes the following: [X] Data Review and interpretation [X] Patient assessment and monitoring of vital signs [X] Documentation [X] Medication orders and management History Interval history: Patient seen and examined now off BiPAP pending sample still with mild shortness of breath. Hospitalist Physical - Physical exam Narrative exam: VITAL SIGNS: Reviewed. GENERAL: The patient appears normally developed, Vital signs as documented. HEAD: No signs of head trauma. EYES: Pupils are equal. Extraocular motions intact. EARS: Hearing grossly intact. MOUTH: Oropharynx is normal. NECK: No adenopathy, no JVD. CHEST: Mild increase in work of breathing otherwise bilateral crackles No wheezes, CARDIAC: Regular rate and rhythm. S1 and S2, without murmurs, gallops, or rubs . VASCULAR: No Edema. Peripheral pulses normal and equal in all extremities. ABDOMEN: Soft, non tender and non distended. No rebound or guarding, and no masses palpated. Bowel Sounds normal. MUSCULOSKELETAL: Good range of motion of all major joints. Extremities without clubbing, cyanosis or edema. NEUROLOGIC EXAM: Alert and oriented x 3 No focal sensory or strength deficits. Speech normal. Follows commands. PSYCHIATRIC: Mood normal. SKIN: detail exam as documented in skin assessment - Constitutional Vitals: Temp Pulse Resp BP Pulse Ox 98.6 F 112 H 37 H 154/92 99 03/09/21 12:18 03/10/21 14:00 03/10/21 14:00 03/10/21 14:00 03/10/21 14:00 General appearance: Present: severe distress HEART Score - HEART Score Troponin: Troponin T 0.012 ng/mL (0.00-0.029) 03/09/21 15:11 Results - Labs CBC & Chem 7: 03/10/21 04:48 03/10/21 04:48 Labs: Laboratory Last Values WBC 6.4 K/mm3 (4.5-11.0) 03/10/21 04:48 RBC 3.59 M/mm3 (3.65-5.03) L 03/10/21 04:48 Hgb 10.4 gm/dl (10.1-14.3) 03/10/21 04:48 Hct 31.6 % (30.3-42.9) 03/10/21 04:48 MCV 88 fl (79-97) 03/10/21 04:48 MCH 29 pg (28-32) 03/10/21 04:48 MCHC 33 % (30-34) 03/10/21 04:48 RDW 16.7 % (13.2-15.2) H 03/10/21 04:48 Plt Count 136 K/mm3 (140-440) L 03/10/21 04:48 Lymph % (Auto) 25.8 % (13.4-35.0) 03/10/21 04:48 [place] % (Auto) 10.4 % (0.0-7.3) H 03/10/21 04:48 Eos % (Auto) 5.6 % (0.0-4.3) H 03/10/21 04:48 Baso % (Auto) 0.4 % (0.0-1.8) 03/10/21 04:48 Lymph # (Auto) 1.7 K/mm3 (1.2-5.4) 03/10/21 04:48 [place] # (Auto) 0.7 K/mm3 (0.0-0.8) 03/10/21 04:48 Eos # (Auto) 0.4 K/mm3 (0.0-0.4) 03/10/21 04:48 Baso # (Auto) 0.0 K/mm3 (0.0-0.1) 03/10/21 04:48 Seg Neutrophils % 57.8 % (40.0-70.0) 03/10/21 04:48 Seg Neutrophils # 3.7 K/mm3 (1.8-7.7) 03/10/21 04:48 D-Dimer 1135.55 ng/mlDDU (0-234) H 03/09/21 13:14 ABG pH 7.294 (7.320-7.450) L 03/09/21 17:17 POC ABG pCO2 52.9 mmHg (32.0-48.0) H 03/09/21 17:17 POC ABG pO2 136.2 mmHg (83-108) H 03/09/21 17:17 POC ABG HCO3 25.1 03/09/21 17:17 ABG O2 Saturation 98.6 (0-100) 03/09/21 17:17 POC ABG Base Excess -1.7 03/09/21 17:17 ABG Hemoglobin 9.5 (12.0-17.5) L 03/09/21 17:17 ABG Oxyhemoglobin 98.1 (94-98) H 03/09/21 17:17 ABG Methemoglobin 0.3 (0.0-1.5) 03/09/21 17:17 ABG Sodium 140.6 mmol/L (136.0-145.0) 03/09/21 17:17 ABG Potassium 4.8 mmol/L (3.40-4.50) H 03/09/21 17:17 ABG Chloride 110.0 mmol/L (98-107) H 03/09/21 17:17 ABG Glucose 79 mg/dL (65-95) 03/09/21 17:17 Carboxyhemoglobin 0.2 (0.5-1.5) L 03/09/21 17:17 FiO2 % 40.0 03/09/21 17:17 Sodium 145 mmol/L (137-145) 03/10/21 04:48 Potassium 5.6 mmol/L (3.6-5.0) H 03/10/21 04:48 Chloride 107.0 mmol/L (98-107) 03/10/21 04:48 Carbon Dioxide 26 mmol/L (22-30) 03/10/21 04:48 Anion Gap 18 mmol/L 03/10/21 04:48 BUN 29 mg/dL (7-17) H 03/10/21 04:48 Creatinine 2.1 mg/dL (0.6-1.2) H 03/10/21 04:48 Estimated GFR 27 ml/min 03/10/21 04:48 BUN/Creatinine Ratio 14 % 03/10/21 04:48 Glucose 63 mg/dL (65-100) L 03/10/21 04:48 Calcium 8.9 mg/dL (8.4-10.2) 03/10/21 04:48 Magnesium 1.80 mg/dL (1.7-2.3) 03/09/21 13:14 Total Bilirubin 0.20 mg/dL (0.1-1.2) 03/09/21 13:14 AST 14 units/L (5-40) 03/09/21 13:14 ALT 9 units/L (7-56) 03/09/21 13:14 Alkaline Phosphatase 60 units/L (35-129) 03/09/21 13:14 Troponin T 0.012 ng/mL (0.00-0.029) 03/09/21 15:11 C-Reactive Protein 5.00 mg/dL (0.00-1.30) H 03/09/21 16:05 NT-Pro-B Natriuret Pep 505.6 pg/mL (0-900) 03/09/21 13:14 Total Protein 6.8 g/dL (6.3-8.2) 03/09/21 13:14 Albumin 3.7 g/dL (3.9-5) L 03/09/21 13:14 Albumin/Globulin Ratio 1.2 % 03/09/21 13:14 Procalcitonin 0.12 ng/mL (<0.15) 03/09/21 16:43 Arterial Blood Glucose 79 mg/dL (65-95) 03/09/21 17:17 Arterial Blood Ionized Calcium 4.7 mg/dL (4.6-5.3) 03/09/21 17:17 Coronavirus (PCR) Negative (Negative) 03/09/21 10:10 Active Medications - Current Medications Current Medications: Generic Name Dose Route Start Last Admin Trade Name Freq PRN Reason Stop Dose Admin Albuterol 2.5 mg 03/09/21 16:28 Albuterol 2.5 Mg/3 Ml Nebu IH Q3HRT PRN Shortness Of Breath Arformoterol Tartrate 15 mcg 03/10/21 20:00 Arformoterol 15 Mcg/2 Ml Nebu IH Q12HRT MANE Budesonide 0.5 mg 03/10/21 20:00 Budesonide 0.5 Mg/2 Ml Nebu IH Q12HRT MANE Sodium Chloride 500 mls @ 50 mls/hr 03/09/21 13:00 03/10/21 06:26 Nacl 0.9% 500 Ml IV 50 mls/hr DIRECT MANE Administration Azithromycin 500 mg in 250 mls @ 250 mls/hr 03/09/21 17:00 03/09/21 17:14 Zithromax/Ns IV Not Given Q24H MANE Protocol Mirtazapine 30 mg 03/10/21 13:59 Mirtazapine 30 Mg Tab PO QHS PRN Insomnia Sodium Chloride 10 ml 03/09/21 22:00 03/10/21 13:50 Sodium Chloride 0.9% 10 Ml Flush Syringe IV Not Given BID MANE Sodium Chloride 10 ml 03/09/21 16:28 Sodium Chloride 0.9% 10 Ml Flush Syringe IV PRN PRN LINE FLUSH
--- NOTE | 2021-03-10 18:10 | Consultation ---
History of Present Illness Consult date: 03/10/21 Requesting physician: SHERIF SIGALA Reason for consult: dyspnea, COPD History of present illness: 80 yo with COPD presents with increased SOB, wheezing, cough. No fevers, chills, chest pain, hemoptysis. Followed by Dr. Castillo for COPD. Active Medications Albuterol/Ipratropium (Ipratropium/Albuterol Sulfate 3 Ml Ampul.Neb) 1 ampul IH QIDRT MANE Budesonide (Budesonide 0.5 Mg/2 Ml Nebu) 0.5 mg IH Q12HRT [facility] Last Admin: 03/10/21 21:17 Dose: 0.5 mg Documented by: Enoxaparin Sodium (Enoxaparin 60 Mg/0.6 Ml Inj) 60 mg SUB-Q Q12HR [facility] Sodium Chloride (Nacl 0.9% 500 Ml) 500 mls @ 50 mls/hr IV DIRECT MANE Last Admin: 03/10/21 06:26 Dose: 50 mls/hr Documented by: Azithromycin (Zithromax/Ns) 500 mg in 250 mls @ 250 mls/hr IV Q24H MANE; Protocol Last Admin: 03/09/21 17:14 Dose: Not Given Documented by: Methylprednisolone Sodium Succinate (Methylprednisolone Sod Succinate 125 Mg/2 Ml Inj) 60 mg IV Q8HR MANE Mirtazapine (Mirtazapine 30 Mg Tab) 30 mg PO QHS PRN PRN Reason: Insomnia Sodium Chloride (Sodium Chloride 0.9% 10 Ml Flush Syringe) 10 ml IV BID [facility] Last Admin: 03/10/21 13:50 Dose: Not Given Documented by: Sodium Chloride (Sodium Chloride 0.9% 10 Ml Flush Syringe) 10 ml IV PRN PRN PRN Reason: LINE FLUSH Past History Past Surgical History: CABG, , hysterectomy, total knee replacement, Other ( pacemaker) Social history: Family history: hypertension Medications and Allergies Allergies Allergy/AdvReac Type Severity Reaction Status Date / Time aspirin Allergy Hives Verified 03/09/21 15:03 Penicillins Allergy Hives Verified 03/09/21 15:03 Sulfa (Sulfonamide Allergy Hives Verified 03/09/21 15:03 Antibiotics) Home Medications Medication Instructions Recorded Confirmed Last Taken Type ALBUTEROL Inhaler(NF) [VENTOLIN 2 puff IH Q4H PRN #1 inha 01/04/19 03/28/21 10/10/19 Rx Inhaler(NF)] Budesonide/Formoterol Fumarate 2 puff IH DAILY #1 hfa.aer.ad 11/01/18 01/23/21 08/07/19 Rx [Symbicort 160-4.5 Mcg Inhaler] Famotidine [Pepcid] 20 mg PO DAILY #30 tablet 11/01/18 01/23/21 08/07/19 Rx Mirtazapine [Remeron 30mg TAB] 30 mg PO QHS PRN #30 tablet 11/01/18 01/23/21 08/07/19 Rx Ipratropium/Albuterol Sulfate 1 ampul IH QIDRT ampul.neb 01/24/21 Unknown Rx [DUONEB *Not for PRN Use*] Active Meds: Active Medications Albuterol (Albuterol 2.5 Mg/3 Ml Nebu) 2.5 mg IH Q3HRT PRN PRN Reason: Shortness Of Breath Arformoterol Tartrate (Arformoterol 15 Mcg/2 Ml Nebu) 15 mcg IH Q12HRT MANE Budesonide (Budesonide 0.5 Mg/2 Ml Nebu) 0.5 mg IH Q12HRT MANE Enoxaparin Sodium (Enoxaparin 60 Mg/0.6 Ml Inj) 60 mg SUB-Q Q12HR MANE Sodium Chloride (Nacl 0.9% 500 Ml) 500 mls @ 50 mls/hr IV DIRECT MANE Last Admin: 03/10/21 06:26 Dose: 50 mls/hr Documented by: Azithromycin (Zithromax/Ns) 500 mg in 250 mls @ 250 mls/hr IV Q24H [facility]; Protocol Last Admin: 03/09/21 17:14 Dose: Not Given Documented by: Mirtazapine (Mirtazapine 30 Mg Tab) 30 mg PO QHS PRN PRN Reason: Insomnia Sodium Chloride (Sodium Chloride 0.9% 10 Ml Flush Syringe) 10 ml IV BID [facility] Last Admin: 03/10/21 13:50 Dose: Not Given Documented by: Sodium Chloride (Sodium Chloride 0.9% 10 Ml Flush Syringe) 10 ml IV PRN PRN PRN Reason: LINE FLUSH Review of Systems All systems: negative Physical Examination Vital signs: Vital Signs Temp Pulse Resp BP Pulse Ox 98.6 F 94 H 30 H 131/63 90 03/09/21 12:18 03/09/21 12:18 03/09/21 12:18 03/09/21 12:18 03/09/21 12:18 Vital Signs - 24 hr 03/09/21 03/09/21 03/09/21 22:30 22:45 23:00 Pulse Rate 94 H 94 H 96 H Pulse Rate [ Anterior Bilateral Throughout] Respiratory 26 H 25 H 23 Rate Respiratory Rate [Anterior Bilateral Throughout] Blood Pressure 126/68 135/74 135/74 O2 Sat by Pulse 98 99 99 Oximetry 03/09/21 03/09/21 03/09/21 23:15 23:30 23:45 Pulse Rate 97 H 101 H 84 Pulse Rate [ Anterior Bilateral Throughout] Respiratory 22 21 21 Rate Respiratory Rate [Anterior Bilateral Throughout] Blood Pressure 136/71 136/71 141/65 O2 Sat by Pulse 99 97 100 Oximetry 03/09/21 03/10/21 03/10/21 23:46 00:00 00:16 Pulse Rate 105 H 97 H 97 H Pulse Rate [ Anterior Bilateral Throughout] Respiratory 17 24 19 Rate Respiratory Rate [Anterior Bilateral Throughout] Blood Pressure 119/71 147/91 144/86 O2 Sat by Pulse 98 99 98 Oximetry 03/10/21 03/10/21 03/10/21 00:30 00:46 01:00 Pulse Rate 97 H 100 H 97 H Pulse Rate [ Anterior Bilateral Throughout] Respiratory 20 21 24 Rate Respiratory Rate [Anterior Bilateral Throughout] Blood Pressure 138/84 156/88 141/85 O2 Sat by Pulse 98 99 98 Oximetry 03/10/21 03/10/21 03/10/21 01:16 01:30 01:46 Pulse Rate 99 H 100 H 102 H Pulse Rate [ Anterior Bilateral Throughout] Respiratory 23 22 17 Rate Respiratory Rate [Anterior Bilateral Throughout] Blood Pressure 134/83 138/81 140/88 O2 Sat by Pulse 98 99 99 Oximetry 03/10/21 03/10/21 03/10/21 02:00 02:16 02:30 Pulse Rate 100 H 100 H 101 H Pulse Rate [ Anterior Bilateral Throughout] Respiratory 20 18 20 Rate Respiratory Rate [Anterior Bilateral Throughout] Blood Pressure 161/87 151/87 174/95 O2 Sat by Pulse 97 98 98 Oximetry 03/10/21 03/10/21 03/10/21 02:46 03:00 03:16 Pulse Rate 99 H 100 H 101 H Pulse Rate [ Anterior Bilateral Throughout] Respiratory 23 18 21 Rate Respiratory Rate [Anterior Bilateral Throughout] Blood Pressure 141/86 141/89 150/90 O2 Sat by Pulse 98 98 98 Oximetry 03/10/21 03/10/21 03/10/21 03:30 03:46 04:00 Pulse Rate 100 H 98 H 99 H Pulse Rate [ Anterior Bilateral Throughout] Respiratory 22 25 H 23 Rate Respiratory Rate [Anterior Bilateral Throughout] Blood Pressure 146/89 162/89 157/91 O2 Sat by Pulse 99 99 99 Oximetry 03/10/21 03/10/21 03/10/21 04:16 04:30 04:55 Pulse Rate 103 H 103 H 109 H Pulse Rate [ Anterior Bilateral Throughout] Respiratory 21 23 26 H Rate Respiratory Rate [Anterior Bilateral Throughout] Blood Pressure 169/97 162/89 144/89 O2 Sat by Pulse 98 100 98 Oximetry 03/10/21 03/10/21 03/10/21 06:00 07:00 07:23 Pulse Rate 105 H 100 H Pulse Rate [ Anterior Bilateral Throughout] Respiratory 10 L 14 20 Rate Respiratory Rate [Anterior Bilateral Throughout] Blood Pressure 146/90 152/95 O2 Sat by Pulse 99 100 Oximetry 03/10/21 03/10/21 03/10/21 10:00 11:19 12:00 Pulse Rate 113 H 100 H Pulse Rate [ Anterior Bilateral Throughout] Respiratory 36 H 27 H Rate Respiratory Rate [Anterior Bilateral Throughout] Blood Pressure 164/98 150/100 124/66 O2 Sat by Pulse 97 99 99 Oximetry 03/10/21 03/10/21 03/10/21 13:00 14:00 16:00 Pulse Rate 98 H 112 H 109 H Pulse Rate [ Anterior Bilateral Throughout] Respiratory 26 H 37 H 35 H Rate Respiratory Rate [Anterior Bilateral Throughout] Blood Pressure 121/66 154/92 142/84 O2 Sat by Pulse 99 99 98 Oximetry 03/10/21 03/10/21 03/10/21 17:00 18:00 19:00 Pulse Rate 109 H 108 H 101 H Pulse Rate [ Anterior Bilateral Throughout] Respiratory 29 H 31 H 30 H Rate Respiratory Rate [Anterior Bilateral Throughout] Blood Pressure 144/83 131/72 150/78 O2 Sat by Pulse 99 100 100 Oximetry 03/10/21 03/10/21 21:24 21:25 Pulse Rate Pulse Rate [ 115 H Anterior Bilateral Throughout] Respiratory Rate Respiratory 20 Rate [Anterior Bilateral Throughout] Blood Pressure O2 Sat by Pulse 100 Oximetry General appearance: no acute distress, alert Eyes: non-icteric ENT: oropharynx moist Neck: supple Effort: normal Ascultation: Bilateral: wheezes Cardiovascular: other (tachy, RR; no mrg) Gastrointestinal: normoactive bowel sounds, soft, non-tender, non-distended Integumentary: normal Extremities: no cyanosis, no edema, pink and warm Musculoskeletal: no deformities normal mental status, non-focal exam, pupils equal and round, CN II-XII normal mood appropriate, affect normal Results - Laboratory Findings CBC and BMP: 03/10/21 04:48 03/10/21 04:48 ABG ABG pH 7.294 (7.320-7.450) L 03/09/21 17:17 POC ABG pCO2 52.9 mmHg (32.0-48.0) H 03/09/21 17:17 POC ABG pO2 136.2 mmHg (83-108) H 03/09/21 17:17 POC ABG HCO3 25.1 03/09/21 17:17 ABG O2 Saturation 98.6 (0-100) 03/09/21 17:17 PT/INR, D-dimer D-Dimer 1135.55 ng/mlDDU (0-234) H 03/09/21 13:14 Abnormal lab findings: Abnormal Labs 03/09/21 03/09/21 03/09/21 13:05 13:14 13:14 RBC 3.36 L Hgb 9.6 L Hct 29.7 L RDW 16.6 H Plt Count 127 L [place] % (Auto) 11.8 H Eos % (Auto) 5.2 H Lymph # (Auto) 0.9 L D-Dimer ABG pH 7.278 L POC ABG pCO2 57.5 H POC ABG pO2 77.2 L ABG Hemoglobin 11.0 L ABG Oxyhemoglobin ABG Potassium 4.8 H ABG Chloride 109.0 H Carboxyhemoglobin 0.4 L Potassium Chloride 107.3 H BUN 25 H Creatinine 2.1 H Glucose C-Reactive Protein Albumin 3.7 L 03/09/21 03/09/21 03/09/21 13:14 16:05 17:17 RBC Hgb Hct RDW Plt Count [place] % (Auto) Eos % (Auto) Lymph # (Auto) D-Dimer 1135.55 H ABG pH 7.294 L POC ABG pCO2 52.9 H POC ABG pO2 136.2 H ABG Hemoglobin 9.5 L ABG Oxyhemoglobin 98.1 H ABG Potassium 4.8 H ABG Chloride 110.0 H Carboxyhemoglobin 0.2 L Potassium Chloride BUN Creatinine Glucose C-Reactive Protein 5.00 H Albumin 03/10/21 03/10/21 04:48 04:48 RBC 3.59 L Hgb Hct RDW 16.7 H Plt Count 136 L [place] % (Auto) 10.4 H Eos % (Auto) 5.6 H Lymph # (Auto) D-Dimer ABG pH POC ABG pCO2 POC ABG pO2 ABG Hemoglobin ABG Oxyhemoglobin ABG Potassium ABG Chloride Carboxyhemoglobin Potassium 5.6 H Chloride BUN 29 H Creatinine 2.1 H Glucose 63 L C-Reactive Protein Albumin - Diagnostic Findings Chest x-ray: report reviewed, image reviewed Assessment and Plan Imp: 1. Acute bronchitis 2. COPD exac. 3. A/C respiratory failure, hypoxia and hypercapnea 4. CKD 5. Hyperkalemia Rec: 1. Zithromax 2. Duonebs scheduled 3. Pulmicort BID 4. Solumedrol 60mg [id number] 5. BIPAP prn 6. Goal sats 88-94% 7. Unsure what to make of perfusion study as the defects could be related to parenchymal disease such as emphysema; however, agree with erring on the side of caution for now and treating with full dose anticoagulation; will check LE dopplers 8. Defer hyperkalemia to IMS; repeat labs in AM 9. Further plans pending clinical course Plan of care reviewed w/ patient, she understands/agrees Thanks for the consult. Will follow closely w/ you.
[2021-03-10] MEDS ORDERED: ARFORMOTEROL 15 MCG/2 ML NEBU IH SCH (20:00)
[2021-03-10] MEDS: BUDESONIDE 0.5 MG/2 ML NEBU IH SCH (21:17)
[2021-03-10] MEDS ORDERED: ENOXAPARIN 60 MG/0.6 ML INJ SUB-Q SCH (22:00)
[2021-03-10] MEDS ORDERED: ENOXAPARIN 100 MG/1 ML INJ SUB-Q SCH (22:00)
[2021-03-10] MEDS: methylPREDNISolone Sod Succinate 40 MG/1 ML INJ IV SCH (22:55)
[2021-03-11 05:33] LABS: Basophils % (Auto) 0.5 % (0.0-1.8); Eosinophils % (Auto) 0.7 % (0.0-4.3); Hematocrit 30.1 % (30.3-42.9); Hemoglobin 9.8 gm/dl (10.1-14.3); Lymphocytes # (Auto) 0.4 K/mm3 (1.2-5.4); Lymphocytes % (Auto) 9.8 % (13.4-35.0); Mean Corpuscular HGB Conc 33 % (30-34); Mean Corpuscular Volume 89 fl (79-97); Monocytes # (Auto) 0.1 K/mm3 (0.0-0.8); Monocytes % (Auto) 1.4 % (0.0-7.3); Platelet Count 158 K/mm3 (140-440); Red Cell Distribution Width 16.5 % (13.2-15.2)
[2021-03-11 05:52] LABS: Calcium 8.6 mg/dL (8.4-10.2)
[2021-03-11] MEDS: SODIUM CHLORIDE 0.9% 500 ML 500 ML IV SCH (06:27)
[2021-03-11] MEDS: methylPREDNISolone Sod Succinate 40 MG/1 ML INJ IV SCH ×3 (06:27→22:03)
[2021-03-11] MEDS: BUDESONIDE 0.5 MG/2 ML NEBU IH SCH ×2 (07:48→20:02)
[2021-03-11] MEDS: IPRATROPIUM/ALBUTEROL SULFATE 3 ML AMPUL.NEB IH SCH ×3 (07:48→20:02)
[2021-03-11] MEDS ORDERED: IPRATROPIUM/ALBUTEROL SULFATE 3 ML AMPUL.NEB IH SCH (08:00)
[2021-03-11] MEDS: ENOXAPARIN 60 MG/0.6 ML INJ SUB-Q SCH (09:02)
[2021-03-11] MEDS ORDERED: ALBUTEROL 8.5 GM MDI INHALATION IH PRN (09:04)
[2021-03-11] MEDS: AZITHROMYCIN/NS 500 MG/250 ML 500 MG/250 ML BAG IV SCH ×2 (09:04→16:25)
[2021-03-11] MEDS ORDERED: ALBUTEROL 2.5 MG/3 ML NEBU IH PRN (09:16)
[2021-03-11] MEDS ORDERED: SODIUM POLYSTYRENE 15 GM/60 ML ORAL LIQD PO NR (09:30)
[2021-03-11] MEDS ORDERED: NON-FORMULARY EACH (Budesonide/Formoterol Fumarate [Symbicort 160-4.5 Mcg Inhaler] 10.2 GM IH SCH (10:00)
--- NOTE | 2021-03-11 11:01 | Progress Note ---
Assessment and Plan Assessment and plan: 80 YO Female with HTN, CVA, KS, OA, Asthma, COPD on 3L Home Oxygen, CAD, CHF, presents to ED for evaluation. The patient is confused, somnolent at the time my evaluation and is unable to provide history. Patient history taken from EMS staff, ED staff. Patient staff reports that patient reported "shortness of breath". Over the past 2 days with persistently worsening symptoms over the same timeframe. EMS notified, and upon arrival the patient was found to be in distress and transported to [facility]. Pt seen and evaluated in ED. All lab and image studies reviewed. Patient found to have a pulse oximetry of 88% on room air which is consistent with acute hypoxemic respiratory failure. Patient underwent chest x-ray which revealed bilateral infiltrate which is consistent with pneumonia. Patient found to be using accessory muscles to breathe, as well as having confusion. Pt was using accessory muscles to breathe, and is unable to speak in complete sentences. Pt is slumped over in bed and is unable to recline due to shortness of breath. Patient was treated with supplemental oxygen without significant improvement in symptoms. The patient was ultimately placed on noninvasive positive pressure ventilation. Patient symptoms mildly improved which was followed by increased somnolence. Patient admitted to IMCU and initiated on pneumonia protocol as well as coronavirus protocol. No further h istory is obtainable. The patient is lethargic, confused, as well as somnolent but has a positive gag reflex and is able to protect her airway without difficulty at this time. Prior admission on 07/07/2020 reviewed. All medication listed at time of admission has been reconciled. Advanced care planning conducted in ED. 03/10: CXR reviewed, no acute pathology. Patient showing some improvement, now taken off BiPAP but left BiPAP at the bedside, Patient downgraded to Med surge, continue on steroids, Pulmonary consulted. Mental status is improved with improving strength. Continue current management Start Full dose lovenox due to concern for Pulmonary embolisim with abnormal V/Q Scan Patient also has mild anemia will monitor closely. 03/11: Discussed possibility of pulmonary embolism with the patient although this could be due to her long distortion. Although all otherwise we will continue with Lovenox at this time. Continues Zithromax and duo nebs Pulmicort as added by ict managers including Solu-Medrol 60 every 8 hours. As patient still has significant exertional dyspnea. Continue current management and BiPAP as needed. Will obtain an ABG at this time. (1) Acute and chronic respiratory failure Current Visit: Yes Status: Acute Qualifiers: Respiratory failure complication: hypoxia Qualified Code(s): J96.21 - Acute and chronic respiratory failure with hypoxia Plan to address problem: Supplemental oxygen, pulse oximetry, nebulizer therapy, noninvasive positive pressure ventilation, chest x-ray, VQ scan ordered and is pending at time of admission, (2) Suspected 2019-nCoV infection Current Visit: Yes Status: Acute Plan to address problem: Coronavirus protocol: Contact precautions, isolation precautions, supplemental oxygen, pulse oximetry, nebulizer therapy, prone positioning while in bed, IV antibiotic therapy, IV steroid therapy, coronavirus PCR ordered and is pending at time of admission. (3) Pneumonia Current Visit: Yes Status: Acute Plan to address problem: Pneumonia protocol: Chest x-ray, CBC, CMP, IV antibiotic therapy, supplemental oxygen, pulse oximetry, nebulizer therapy, blood culture. 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 to monitor serum creatinine as well as GFR. (5) acute bronchitis (6) DVT prophylaxis Current Visit: Yes Status: Acute Plan to address problem: SCD to bilateral lower extremities while in bed, continue therapeutic anticoagulation (7) Advance care planning Current Visit: Yes Status: Acute Plan to address problem: Disease education conducted, care plan discussed with the patient, prognosis discussed, patient is full code, +30 minutes. History Interval history: Patient seen and examined she is resting comfortably at the bedside does not appear toxic as yesterday. But has not been ambulated. Hospitalist Physical - Physical exam Narrative exam: VITAL SIGNS: Reviewed. GENERAL: The patient appears normally developed, rested but with exertional d yspnea vital signs as documented. HEAD: No signs of head trauma. EYES: Pupils are equal. Extraocular motions intact. EARS: Hearing grossly intact. MOUTH: Oropharynx is normal. NECK: No adenopathy, no JVD. CHEST: Still with mild bibasilar crackles., CARDIAC: Regular rate and rhythm. S1 and S2, without murmurs, gallops, or rubs. VASCULAR: No Edema. Peripheral pulses normal and equal in all extremities. ABDOMEN: Soft, non tender and non distended. No rebound or guarding, and no masses palpated. Bowel Sounds normal. MUSCULOSKELETAL: Good range of motion of all major joints. Extremities without clubbing, cyanosis or edema. NEUROLOGIC EXAM: Alert and oriented x 3 No focal sensory or strength deficits. Speech normal. Follows commands. PSYCHIATRIC: Mood normal. SKIN: detail exam as documented in skin assessment - Constitutional Vitals: Temp Pulse Resp BP Pulse Ox 98.9 F 101 H 16 142/82 99 03/11/21 04:55 03/11/21 07:48 03/11/21 07:48 03/11/21 04:55 03/11/21 07:48 General appearance: Present: severe distress HEART Score - HEART Score Troponin: Troponin T 0.012 ng/mL (0.00-0.029) 03/09/21 15:11 Results - Labs CBC & Chem 7: 03/11/21 04:37 03/11/21 04:37 Labs: Laboratory Last Values WBC 4.3 K/mm3 (4.5-11.0) L 03/11/21 04:37 RBC 3.40 M/mm3 (3.65-5.03) L 03/11/21 04:37 Hgb 9.8 gm/dl (10.1-14.3) L 03/11/21 04:37 Hct 30.1 % (30.3-42.9) L 03/11/21 04:37 MCV 89 fl (79-97) 03/11/21 04:37 MCH 29 pg (28-32) 03/11/21 04:37 MCHC 33 % (30-34) 03/11/21 04:37 RDW 16.5 % (13.2-15.2) H 03/11/21 04:37 Plt Count 158 K/mm3 (140-440) 03/11/21 04:37 Lymph % (Auto) 9.8 % (13.4-35.0) L 03/11/21 04:37 [place] % (Auto) 1.4 % (0.0-7.3) 03/11/21 04:37 Eos % (Auto) 0.7 % (0.0-4.3) 03/11/21 04:37 Baso % (Auto) 0.5 % (0.0-1.8) 03/11/21 04:37 Lymph # (Auto) 0.4 K/mm3 (1.2-5.4) L 03/11/21 04:37 [place] # (Auto) 0.1 K/mm3 (0.0-0.8) 03/11/21 04:37 Eos # (Auto) 0.0 K/mm3 (0.0-0.4) 03/11/21 04:37 Baso # (Auto) 0.0 K/mm3 (0.0-0.1) 03/11/21 04:37 Seg Neutrophils % 87.6 % (40.0-70.0) H 03/11/21 04:37 Seg Neutrophils # 3.8 K/mm3 (1.8-7.7) 03/11/21 04:37 D-Dimer 1135.55 ng/mlDDU (0-234) H 03/09/21 13:14 ABG pH 7.294 (7.320-7.450) L 03/09/21 17:17 POC ABG pCO2 52.9 mmHg (32.0-48.0) H 03/09/21 17:17 POC ABG pO2 136.2 mmHg (83-108) H 03/09/21 17:17 POC ABG HCO3 25.1 03/09/21 17:17 ABG O2 Saturation 98.6 (0-100) 03/09/21 17:17 POC ABG Base Excess -1.7 03/09/21 17:17 ABG Hemoglobin 9.5 (12.0-17.5) L 03/09/21 17:17 ABG Oxyhemoglobin 98.1 (94-98) H 03/09/21 17:17 ABG Methemoglobin 0.3 (0.0-1.5) 03/09/21 17:17 ABG Sodium 140.6 mmol/L (136.0-145.0) 03/09/21 17:17 ABG Potassium 4.8 mmol/L (3.40-4.50) H 03/09/21 17:17 ABG Chloride 110.0 mmol/L (98-107) H 03/09/21 17:17 ABG Glucose 79 mg/dL (65-95) 03/09/21 17:17 Carboxyhemoglobin 0.2 (0.5-1.5) L 03/09/21 17:17 FiO2 % 40.0 03/09/21 17:17 Sodium 145 mmol/L (137-145) 03/11/21 04:37 Potassium 5.6 mmol/L (3.6-5.0) H 03/11/21 04:37 Chloride 111.3 mmol/L (98-107) H 03/11/21 04:37 Carbon Dioxide 22 mmol/L (22-30) 03/11/21 04:37 Anion Gap 17 mmol/L 03/11/21 04:37 BUN 41 mg/dL (7-17) H 03/11/21 04:37 Creatinine 2.3 mg/dL (0.6-1.2) H 03/11/21 04:37 Estimated GFR 25 ml/min 03/11/21 04:37 BUN/Creatinine Ratio 18 % 03/11/21 04:37 Glucose 134 mg/dL (65-100) H 03/11/21 04:37 Calcium 8.6 mg/dL (8.4-10.2) 03/11/21 04:37 Magnesium 1.80 mg/dL (1.7-2.3) 03/09/21 13:14 Total Bilirubin 0.20 mg/dL (0.1-1.2) 03/09/21 13:14 AST 14 units/L (5-40) 03/09/21 13:14 ALT 9 units/L (7-56) 03/09/21 13:14 Alkaline Phosphatase 60 units/L (35-129) 03/09/21 13:14 Troponin T 0.012 ng/mL (0.00-0.029) 03/09/21 15:11 C-Reactive Protein 5.00 mg/dL (0.00-1.30) H 03/09/21 16:05 NT-Pro-B Natriuret Pep 505.6 pg/mL (0-900) 03/09/21 13:14 Total Protein 6.8 g/dL (6.3-8.2) 03/09/21 13:14 Albumin 3.7 g/dL (3.9-5) L 03/09/21 13:14 Albumin/Globulin Ratio 1.2 % 03/09/21 13:14 Procalcitonin 0.12 ng/mL (<0.15) 03/09/21 16:43 Arterial Blood Glucose 79 mg/dL (65-95) 03/09/21 17:17 Arterial Blood Ionized Calcium 4.7 mg/dL (4.6-5.3) 03/09/21 17:17 Coronavirus (PCR) Negative (Negative) 03/09/21 10:10 Herrera/IV: Voiding Method Toilet Active Medications - Current Medications Current Medications: Generic Name Dose Route Start Last Admin Trade Name Freq PRN Reason Stop Dose Admin Albuterol 2.5 mg 03/11/21 09:16 Albuterol 2.5 Mg/3 Ml Nebu IH Q4HRT PRN Shortness Of Breath Albuterol/Ipratropium 1 ampul 03/11/21 08:00 03/11/21 07:48 Ipratropium/Albuterol Sulfate 3 Ml Ampul.Neb IH 1 ampul TIDRT MANE Administration Budesonide 0.5 mg 03/10/21 20:00 03/11/21 07:48 Budesonide 0.5 Mg/2 Ml Nebu IH 0.5 mg Q12HRT MANE Administration Enoxaparin Sodium 60 mg 03/11/21 10:00 03/11/21 09:02 Enoxaparin 60 Mg/0.6 Ml Inj SUB-Q 60 mg Q24HR MANE Administration Sodium Chloride 500 mls @ 50 mls/hr 03/09/21 13:00 03/11/21 06:27 Nacl 0.9% 500 Ml IV 50 mls/hr DIRECT MANE Administration Azithromycin 500 mg in 250 mls @ 250 mls/hr 03/09/21 17:00 03/11/21 09:04 Zithromax/Ns IV Not Given Q24H MANE Protocol Methylprednisolone Sodium Succinate 60 mg 03/10/21 23:00 03/11/21 06:27 Methylprednisolone Sod Succinate 40 Mg/1 Ml Inj IV 60 mg Q8HR MANE Administration Mirtazapine 30 mg 03/10/21 13:59 Mirtazapine 30 Mg Tab PO QHS PRN Insomnia Sodium Chloride 10 ml 03/09/21 22:00 03/11/21 09:03 Sodium Chloride 0.9% 10 Ml Flush Syringe IV 10 ml BID MANE Administration Sodium Chloride 10 ml 03/09/21 16:28 Sodium Chloride 0.9% 10 Ml Flush Syringe IV PRN PRN LINE FLUSH Sodium Polystyrene Sulfonate 30 gm 03/11/21 09:30 03/11/21 10:41 Sodium Polystyrene 15 Gm/60 Ml Oral Liqd PO 03/11/21 13:00 30 gm ONCE@0930 NR Administration Nutrition/Malnutrition Assess - Dietary Evaluation Nutrition/Malnutrition Findings: Nutrition Notes Start: 03/11/21 09 :29 Freq: Status: Active Protocol: Document 03/11/21 09:30 AT (Rec: 03/11/21 09:31 AT [id number]) Co-Sign 03/11/21 09:30 MK Nutrition Notes Need for Assessment generated from: edge burnisher uppers,MST Initial or Follow up Brief Note Current Diagnosis Acute Kidney Injury,CKD(stage I-IV),COPD,Coronary Artery Disease,Hypertension,Heart Failure Other Pertinent Diagnosis Hx KS, Hx CVA, pneu, COVID-19( -), Osteoarthritis Current Diet Cardiac Diet Labs/Tests Hgb 9.8 K 5.6 BUN 41 Cr 2.3 BG 134 Pertinent Medications Pulmicort Solu-Medrol Kionex Remeron Height 5 ft 3 in Weight 58.967 kg Usual Body Weight 61.8 kg [place] Body Weight (kg) 52.27 BMI 23.0 Intake Prior to Admission Good Weight change and time frame Pt reports, weight loss of 5% x 2 weeks Per chart, pt has lost 1% of body weight in 3 months () Weight Status Appropriate Subjective/Other Information Screen for malnutrition. Minimum of two criteria No Interpretation of Weight Loss (severe) >2% in 1 week
--- NOTE | 2021-03-11 13:22 | Consultation ---
History of Present Illness - Reason for Consult Consult date: 03/11/21 acute renal failure, chronic renal failure, hyperkalemia - History of Present Illness The patient is an 80 YO female who is well known to our service with history significant for HTN, Diastolic CHF, COPD, chronic hypoxic respiratory failure on home O2, SSS s/p PPM, Anemia and CKD stage 4 who presented to [facility] ED 03/09 with c/o worsening shortness of breath of 2 days duration. She denies any nausea, vomiting, diarrhea, abd pain, diaphoresis, palpitation, cough, hemoptysis, fever or chills. Patient was admitted with Acute bronchitis, A/C respiratory failure, hypoxia and hypercapnea and COPD exacerbation. Labs significant for Creat 2.3, BUN 41 and K 5.6. Nephrology was consulted for further evaluation of hyperkalem ia. Past History Past Medical History: other (See HPI.) Past Surgical History: CABG, , hysterectomy, total knee replacement, Other ( pacemaker) Social history: Family history: hypertension Medications and Allergies Allergies Allergy/AdvReac Type Severity Reaction Status Date / Time aspirin Allergy Hives Verified 03/09/21 15:03 Penicillins Allergy Hives Verified 03/09/21 15:03 Sulfa (Sulfonamide Allergy Hives Verified 03/09/21 15:03 Antibiotics) Home Medications Medication Instructions Recorded Confirmed Last Taken Type ALBUTEROL Inhaler(NF) [VENTOLIN 2 puff IH Q4H PRN #1 inha 11/01/18 01/23/21 08/07/19 Rx Inhaler(NF)] Budesonide/Formoterol Fumarate 2 puff IH DAILY #1 hfa.aer.ad 11/01/18 01/23/21 08/07/19 Rx [Symbicort 160-4.5 Mcg Inhaler] Famotidine [Pepcid] 20 mg PO DAILY #30 tablet 11/01/18 01/23/21 08/07/19 Rx Mirtazapine [Remeron 30mg TAB] 30 mg PO QHS PRN #30 tablet 11/01/18 01/23/21 08/07/19 Rx Ipratropium/Albuterol Sulfate 1 ampul IH QIDRT ampul.neb 01/24/21 Unknown Rx [DUONEB *Not for PRN Use*] Active Meds: Active Medications Albuterol (Albuterol 2.5 Mg/3 Ml Nebu) 2.5 mg IH Q4HRT PRN PRN Reason: Shortness Of Breath Albuterol/Ipratropium (Ipratropium/Albuterol Sulfate 3 Ml Ampul.Neb) 1 ampul IH TIDRT [facility] Last Admin: 03/11/21 07:48 Dose: 1 ampul Documented by: Budesonide (Budesonide 0.5 Mg/2 Ml Nebu) 0.5 mg IH Q12HRT [facility] Last Admin: 03/11/21 07:48 Dose: 0.5 mg Documented by: Enoxaparin Sodium (Enoxaparin 60 Mg/0.6 Ml Inj) 60 mg SUB-Q Q24HR [facility] Last Admin: 03/11/21 09:02 Dose: 60 mg Documented by: Sodium Chloride (Nacl 0.9% 500 Ml) 500 mls @ 50 mls/hr IV DIRECT [facility] Last Admin: 03/11/21 06:27 Dose: 50 mls/hr Documented by: Azithromycin (Zithromax/Ns) 500 mg in 250 mls @ 250 mls/hr IV Q24H [facility]; Protocol Last Admin: 03/11/21 09:04 Dose: Not Given Documented by: Methylprednisolone Sodium Succinate (Methylprednisolone Sod Succinate 40 Mg/1 Ml Inj) 60 mg IV Q8HR [facility] Last Admin: 03/11/21 06:27 Dose: 60 mg Documented by: Mirtazapine (Mirtazapine 30 Mg Tab) 30 mg PO QHS PRN PRN Reason: Insomnia Sodium Chloride (Sodium Chloride 0.9% 10 Ml Flush Syringe) 10 ml IV BID [facility] Last Admin: 03/11/21 09:03 Dose: 10 ml Documented by: Sodium Chloride (Sodium Chloride 0.9% 10 Ml Flush Syringe) 10 ml IV PRN PRN PRN Reason: LINE FLUSH Review of Systems Constitutional: fatigue, no weight loss, no weight gain, no fever, no chills, no anorexia Breasts: deferred Cardiovascular: shortness of breath, dyspnea on exertion, no chest pain, no orthopnea, no edema, no syncope, no lightheadedness Respiratory: cough, shortness of breath, dyspnea on exertion, no hemoptysis, no wheezing Gastrointestinal: no abdominal pain, no nausea, no vomiting, no diarrhea, no melena Neurological: no seizures, no syncope, no convulsions, no change in speech Exam - Vital Signs Vital signs: Vital Signs Temp Pulse Resp BP Pulse Ox 98.6 F 94 H 30 H 131/63 90 03/09/21 12:18 03/09/21 12:18 03/09/21 12:18 03/09/21 12:18 03/09/21 12:18 Results - Lab Results 03/11/21 04:37 03/11/21 04:37 Most recent lab results ABG pH 7.294 (7.320-7.450) L 03/09/21 17:17 ABG O2 Saturation 98.6 (0-100) 03/09/21 17:17 Calcium 8.6 mg/dL (8.4-10.2) 03/11/21 04:37 Magnesium 1.80 mg/dL (1.7-2.3) 03/09/21 13:14 Assessment and Plan 1. CKD stage 4: Patient with known h/o stage 4 CKD and followed by our service. Reanl function is around her baseline. Monitor renal function. Avoid nephrotoxic agents. Meds dosage based on GFR. 2. FEN: Hyperkalemia, kayexalate ordered, monitor. Low potassium diet. Follow lytes. 3. Acute on chronic hypoxia and hypercapnea: 2/2 COPD exacerbation. On Steroids, Pulmicort and Duoneb. Followed by Pulmonary. Monitor. 4. Chronic respiratory failure: NC O2. 5. Chronic Anemia: POA. Subjective: Patient was seen and examined at the bedside. Doing better. Examination: General appearance: well-developed, appears stated age, no distress HEENT: ATNC, [place]AL[place], hearing intact, vision intact Neck: neck supple, trachea midline Respiratory: Clear to Auscultation Heart: regular, S1S2, no murmur Gastrointestinal: soft, normoactive bowel sounds, not tender, not distended Integumentary: no rash, warm and dry Neurologic: alert, conversing, no focal deficit Ext: no edema
[2021-03-11 13:56] LABS: ABG Base Excess -2.6 mmol/L (-2.0-3.0); ABG HCO3 23.5 mmol/L (20.0-26.0); ABG Methemoglobin 0.5 % (0.0-1.5); ABG Oxygen Saturation 96.2 % (95.0-99.0); ABG PCO2 46.4 mm Hg; ABG PH 7.322 pH Units (7.350-7.450); ABG PO2 79.5 mm Hg (80.0-90.0)
[2021-03-11] MEDS ORDERED: SODIUM POLYSTYRENE 15 GM/60 ML ORAL LIQD PO SCH (14:00)
--- NOTE | 2021-03-11 15:35 | Progress Note ---
Assessment and Plan Imp: 1. Acute bronchitis 2. COPD exac. 3. A/C respiratory failure, hypoxia and hypercapnea 4. CKD 5. Hyperkalemia Rec: 1. Zithromax 2. Duonebs scheduled 3. Pulmicort BID 4. Solumedrol 60mg [id number] 5. BIPAP prn 6. Goal sats 88-94% 7. Unsure what to make of perfusion study as the defects could be related to parenchymal disease such as emphysema; however, agree with erring on the side of caution for now and treating with full dose anticoagulation; will check LE dopplers 8. Defer hyperkalemia to renal 9. Further plans pending clinical course; clinically better already today Plan of care reviewed w/ patient, she understands/agrees Subjective Date of service: 03/11/21 Principal diagnosis: COPD exac. Interval history: No events. SOB/wheezing better. On NC. No new complaints. Active Medications Albuterol (Albuterol 2.5 Mg/3 Ml Nebu) 2.5 mg IH Q4HRT PRN PRN Reason: Shortness Of Breath Albuterol/Ipratropium (Ipratropium/Albuterol Sulfate 3 Ml Ampul.Neb) 1 ampul IH TIDRT [facility] Last Admin: 03/11/21 14:49 Dose: 1 ampul Documented by: Budesonide (Budesonide 0.5 Mg/2 Ml Nebu) 0.5 mg IH Q12HRT [facility] Last Admin: 03/11/21 07:48 Dose: 0.5 mg Documented by: Enoxaparin Sodium (Enoxaparin 60 Mg/0.6 Ml Inj) 60 mg SUB-Q Q24HR [facility] Last Admin: 03/11/21 09:02 Dose: 60 mg Documented by: Sodium Chloride (Nacl 0.9% 500 Ml) 500 mls @ 50 mls/hr IV DIRECT MANE Last Admin: 03/11/21 06:27 Dose: 50 mls/hr Documented by: Azithromycin (Zithromax/Ns) 500 mg in 250 mls @ 250 mls/hr IV Q24H [facility]; Protocol Last Admin: 03/11/21 09:04 Dose: Not Given Documented by: Methylprednisolone Sodium Succinate (Methylprednisolone Sod Succinate 40 Mg/1 Ml Inj) 60 mg IV Q8HR [facility] Last Admin: 03/11/21 14:34 Dose: 60 mg Documented by: Mirtazapine (Mirtazapine 30 Mg Tab) 30 mg PO QHS PRN PRN Reason: Insomnia Sodium Chloride (Sodium Chloride 0.9% 10 Ml Flush Syringe) 10 ml IV BID MANE Last Admin: 03/11/21 09:03 Dose: 10 ml Documented by: Sodium Chloride (Sodium Chloride 0.9% 10 Ml Flush Syringe) 10 ml IV PRN PRN PRN Reason: LINE FLUSH Sodium Polystyrene Sulfonate (Sodium Polystyrene 15 Gm/60 Ml Oral Liqd) 45 gm PO ONCE MANE Stop: 03/11/21 18:00 Objective Vital Signs - 12hr 03/11/21 03/11/21 03/11/21 04:55 07:48 10:00 Temperature 98.9 F Pulse Rate 102 H Pulse Rate [ 101 H Anterior Bilateral Throughout] Respiratory 18 20 Rate Respiratory 16 Rate [Anterior Bilateral Throughout] Blood Pressure 142/82 O2 Sat by Pulse 98 99 Oximetry Constitutional: no acute distress, alert Eyes: non-icteric ENT: oropharynx moist Neck: supple Effort: normal Ascultation: Bilateral: clear Cardiovascular: other (tachy, RR; no mrg) Gastrointestinal: normoactive bowel sounds, soft, non-tender, non-distended Integumentary: normal Extremities: no cyanosis, no edema, pink and warm Neurologic: normal mental status, non-focal exam, pupils equal and round, CN II- XII normal Psychiatric: mood appropriate, affect normal CBC and BMP: 03/11/21 04:37 03/11/21 04:37 ABG, PT/INR, D-dimer: ABG ABG pH 7.322 pH Units (7.350-7.450) L 03/11/21 13:14 POC ABG pCO2 52.9 mmHg (32.0-48.0) H 03/09/21 17:17 ABG pCO2 46.4 mm Hg 03/11/21 13:14 POC ABG pO2 136.2 mmHg (83-108) H 03/09/21 17:17 ABG pO2 79.5 mm Hg (80.0-90.0) L 03/11/21 13:14 POC ABG HCO3 25.1 03/09/21 17:17 ABG O2 Saturation 96.2 % (95.0-99.0) 03/11/21 13:14 PT/INR, D-dimer D-Dimer 1135.55 ng/mlDDU (0-234) H 03/09/21 13:14 Abnormal lab findings: Abnormal Labs 03/09/21 03/09/21 03/09/21 13:05 13:14 13:14 WBC RBC 3.36 L Hgb 9.6 L Hct 29.7 L RDW 16.6 H Plt Count 127 L Lymph % (Auto) [place] % (Auto) 11.8 H Eos % (Auto) 5.2 H Lymph # (Auto) 0.9 L Seg Neutrophils % D-Dimer ABG pH 7.278 L POC ABG pCO2 57.5 H POC ABG pO2 77.2 L ABG pO2 ABG Base Excess ABG Hemoglobin 11.0 L ABG Oxyhemoglobin ABG Potassium 4.8 H ABG Chloride 109.0 H Oxyhemoglobin Carboxyhemoglobin 0.4 L Potassium Chloride 107.3 H BUN 25 H Creatinine 2.1 H Glucose C-Reactive Protein Albumin 3.7 L 03/09/21 03/09/21 03/09/21 13:14 16:05 17:17 WBC RBC Hgb Hct RDW Plt Count Lymph % (Auto) [place] % (Auto) Eos % (Auto) Lymph # (Auto) Seg Neutrophils % D-Dimer 1135.55 H ABG pH 7.294 L POC ABG pCO2 52.9 H POC ABG pO2 136.2 H ABG pO2 ABG Base Excess ABG Hemoglobin 9.5 L ABG Oxyhemoglobin 98.1 H ABG Potassium 4.8 H ABG Chloride 110.0 H Oxyhemoglobin Carboxyhemoglobin 0.2 L Potassium Chloride BUN Creatinine Glucose C-Reactive Protein 5.00 H Albumin 03/10/21 03/10/21 03/11/21 04:48 04:48 04:37 WBC 4.3 L RBC 3.59 L 3.40 L Hgb 9.8 L Hct 30.1 L RDW 16.7 H 16.5 H Plt Count 136 L Lymph % (Auto) 9.8 L [place] % (Auto) 10.4 H Eos % (Auto) 5.6 H Lymph # (Auto) 0.4 L Seg Neutrophils % 87.6 H D-Dimer ABG pH POC ABG pCO2 POC ABG pO2 ABG pO2 ABG Base Excess ABG Hemoglobin ABG Oxyhemoglobin ABG Potassium ABG Chloride Oxyhemoglobin Carboxyhemoglobin Potassium 5.6 H Chloride BUN 29 H Creatinine 2.1 H Glucose 63 L C-Reactive Protein Albumin 03/11/21 03/11/21 04:37 13:14 WBC RBC Hgb Hct RDW Plt Count Lymph % (Auto) [place] % (Auto) Eos % (Auto) Lymph # (Auto) Seg Neutrophils % D-Dimer ABG pH 7.322 L POC ABG pCO2 POC ABG pO2 ABG pO2 79.5 L ABG Base Excess -2.6 L ABG Hemoglobin 10.1 L ABG Oxyhemoglobin ABG Potassium ABG Chloride Oxyhemoglobin 94.6 L Carboxyhemoglobin Potassium 5.6 H Chloride 111.3 H BUN 41 H Creatinine 2.3 H Glucose 134 H C-Reactive Protein Albumin Chest x-ray: report reviewed, image reviewed
--- NOTE | 2021-03-11 16:51 | Vascular Lab Report ---
DUPLEX DOPPLER LOWER EXTREMITY VEINS, BILATERAL INDICATION / CLINICAL INFORMATION: LE edema, Hypoxia. TECHNIQUE: Duplex doppler imaging was performed through the veins of both lower extremities using shirlene ous compression and other maneuvers. COMPARISON: Bilateral venous Doppler 08/08/2017. FINDINGS: RIGHT COMMON FEMORAL VEIN: Negative. RIGHT FEMORAL VEIN: Negative. RIGHT POPLITEAL VEIN: Negative. RIGHT CALF VEINS: Negative. LEFT COMMON FEMORAL VEIN: Negative. LEFT FEMORAL VEIN: Negative. LEFT POPLITEAL VEIN: Negative. LEFT CALF VEINS: Negative. ADDITIONAL FINDINGS: None. IMPRESSION: 1. No sonographic evidence for DVT in either lower extremity. Scribed by: Hellen Sánchez RDMS, RVT Scribed: 03/11/2021 2:25 PM Signer Name: Arsen Molina MD Signed: 03/11/2021 4:46 PM Workstation Name: [id number]
[2021-03-12] MEDS: methylPREDNISolone Sod Succinate 40 MG/1 ML INJ IV SCH ×2 (05:39→13:44)
[2021-03-12 06:21] LABS: Hematocrit 25.7 % (30.3-42.9); Hemoglobin 8.5 gm/dl (10.1-14.3); Mean Corpuscular HGB Conc 33 % (30-34); Mean Corpuscular Volume 88 fl (79-97); Platelet Count 175 K/mm3 (140-440); Red Blood Count 2.93 M/mm3 (3.65-5.03); Red Cell Distribution Width 16.1 % (13.2-15.2)
[2021-03-12 06:38] LABS: Calcium 7.9 mg/dL (8.4-10.2)
[2021-03-12] MEDS: IPRATROPIUM/ALBUTEROL SULFATE 3 ML AMPUL.NEB IH SCH ×2 (07:55→14:18)
[2021-03-12] MEDS: BUDESONIDE 0.5 MG/2 ML NEBU IH SCH (07:55)
[2021-03-12] MEDS: ENOXAPARIN 60 MG/0.6 ML INJ SUB-Q SCH (09:49)
--- NOTE | 2021-03-12 09:59 | Discharge Summary ---
Providers - Providers Date of Admission: 03/09/21 16:28 Attending physician: SHERIF SIGALA MD 03/10/21 13:58 Consult to Physician [CONS] Routine Comment: Consulting Provider: ADELAIDA PERERA Physician Instructions: Reason For Exam: SHORTNESS OF BREATH 03/11/21 09:04 Consult to Physician [CONS] Routine Comment: Consulting Provider: BRAD MELENDEZ Physician Instructions: Reason For Exam: ckd Primary care physician: INFORMATION CLERK [facility] Hospitalization Reason for admission: Shortness of Condition: Stable Hospital course: 1 YO Female with HTN, CVA, LA, OA, Asthma, COPD on 3L Home Oxygen, CAD, CHF, presents to ED for evaluation. The patient is confused, somnolent at the time my evaluation and is unable to provide history. Patient history taken from EMS staff, ED staff. Patient staff reports that patient reported "shortness of breath". Over the past 2 days with persistently worsening symptoms over the same timeframe. EMS notified, and upon arrival the patient was found to be in distress and transported to [facility]. Pt seen and evaluated in ED. All lab and image studies reviewed. Patient found to have a pulse oximetry of 88% on room air which is consistent with acute hypoxemic respiratory failure. Patient underwent chest x-ray which revealed bilateral infiltrate which is consistent with pneumonia. Patient found to be using accessory muscles to breathe, as well as having confusion. Pt was using accessory muscles to breathe, and is unable to speak in complete sentences. Pt is slumped over in bed and is unable to recline due to shortness of breath. Patient was treated with supplemental oxygen without significant improvement in symptoms. The patient was ultimately placed on noninvasive positive pressure ventilation. Patient symptoms mildly improved which was followed by increased somnolence. Patient admitted to [facility] and initiated on pneumonia protocol as well as coronavirus protocol. No further history is obtainable. The patient is lethargic, confused, as well as somnolent but has a positive gag reflex and is able to protect her airway without difficulty at this time. Prior admission on 07/07/2020 reviewed. All medication listed at time of admission has been reconciled. Advanced care planning conducted in ED. 03/10: CXR reviewed, no acute pathology. Patient showing some improvement, now taken off BiPAP but left BiPAP at the bedside, Patient downgraded to Med surge, continue on steroids, Pulmonary consulted. Mental status is improved with improving strength. Continue current management Start Full dose lovenox due to concern for Pulmonary embolisim with abnormal V/Q Scan Patient also has mild anemia will monitor closely. 03/11: Discussed possibility of pulmonary embolism with the patient although this could be due to her long distortion. Although all otherwise we will continue with Lovenox at this time. Continues Zithromax and duo nebs Pulmicort as added by cleaning matron including Solu-Medrol 60 every 8 hours. As patient still has significant exertional dyspnea. Continue current management and BiPAP as needed. Will obtain an ABG at this time. 03/12: Patient this morning reports that she is ready to go home. She feels she is back to her baseline. I did discuss a steroid taper with her and also discussed Eliquis and the intermediate finding of pulmonary embolism and the decision to err on side of caution risk factors associated with blood thinners she verbalized understanding. She will follow with her pulmonary doctor and also with the straw baler outpatient for continued monitoring. She denies any fever chest pain worsening cough or shortness of breath at this time. 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 GENERAL: The patient appears normally developed, rested no further dyspnea appreciated vital signs as documented. HEAD: No signs of head trauma. EYES: Pupils are equal. Extraocular motions intact. EARS: Hearing grossly intact. MOUTH: Oropharynx is normal. NECK: No adenopathy, no JVD. CHEST: Still with mild bibasilar crackles but improved., CARDIAC: Regular rate and rhythm. S1 and S2, without murmurs, gallops, or rubs. VASCULAR: No Edema. Peripheral pulses normal and equal in all extremities. ABDOMEN: Soft, non tender and non distended. No rebound or guarding, and no masses palpated. Bowel Sounds normal. MUSCULOSKELETAL: Good range of motion of all major joints. Extremities without clubbing, cyanosis or edema. NEUROLOGIC EXAM: Alert and oriented x 3 No focal sensory or strength deficits. Speech normal. Follows commands. PSYCHIATRIC: Mood normal. SKIN: detail exam as documented in skin assessment - Constitutional Vitals: Temp Pulse Resp BP Pulse Ox 98 F 107 H 19 141/83 99 03/12/21 04:40 03/12/21 07:55 03/12/21 07:55 03/12/21 04:40 03/12/21 07:55 Plan Activity: advance as tolerated, fall precautions Diet: low fat Special Instructions: record daily BP diary, home oxygen via (nasal cannula @ 3 liters per minute) Follow up with: PRIMARY CARE, [Primary Care Provider] - 3-5 Days PAULO CHARLES MD [Staff Physician] - 7 Days BRAD MELENDEZ MD [Staff Physician] - 7 Days Prescriptions: Budesonide/Formoterol Fumarate [Symbicort 160-4.5 Mcg Inhaler] 2 puff IH DAILY #1 hfa.aer.ad Ipratropium/Albuterol Sulfate [DUONEB *Not for PRN Use*] 1 ampul IH QIDRT #120 ampul.neb
[2021-03-12 11:01] VITALS: BP 134/74
--- NOTE | 2021-03-12 11:58 | Progress Note ---
Assessment and Plan - Patient Problems (1) Acute and chronic respiratory failure Current Visit: Yes Status: Acute Qualifiers: Respiratory failure complication: hypoxia (2) Acute on chronic respiratory failure with hypoxia and hypercapnia Current Visit: Yes Status: Acute (3) COPD exacerbation Current Visit: Yes Status: Acute (4) Chronic anemia Current Visit: Yes Status: Acute (5) Pneumonia Current Visit: Yes Status: Acute (6) Acute on chronic renal failure Onset Date: 05/21/16 Current Visit: Yes Status: Chronic (7) NELIDA (acute kidney injury) Current Visit: No Status: Acute Subjective Principal diagnosis: COPD exac. Interval history: feels better. wants to go home Objective Vital Signs - 12hr 03/12/21 03/12/21 04:40 07:55 Temperature 98 F Pulse Rate 107 H Pulse Rate [ 107 H Anterior Bilateral Throughout] Respiratory 16 Rate Respiratory 19 Rate [Anterior Bilateral Throughout] Blood Pressure 141/83 [Right] O2 Sat by Pulse 100 99 Oximetry Constitutional: no acute distress, alert Eyes: non-icteric ENT: oropharynx moist Neck: supple Effort: normal Ascultation: Bilateral: clear Cardiovascular: other (tachy, RR; no mrg) Gastrointestinal: normoactive bowel sounds, soft, non-tender, non-distended Integumentary: normal Extremities: no cyanosis, no edema, pink and warm Neurologic: normal mental status, non-focal exam, pupils equal and round, CN II- XII normal Psychiatric: mood appropriate, affect normal CBC and BMP: 03/12/21 05:34 03/12/21 05:34 ABG, PT/INR, D-dimer: ABG ABG pH 7.322 pH Units (7.350-7.450) L 03/11/21 13:14 POC ABG pCO2 52.9 mmHg (32.0-48.0) H 03/09/21 17:17 ABG pCO2 46.4 mm Hg 03/11/21 13:14 POC ABG pO2 136.2 mmHg (83-108) H 03/09/21 17:17 ABG pO2 79.5 mm Hg (80.0-90.0) L 03/11/21 13:14 POC ABG HCO3 25.1 03/09/21 17:17 ABG O2 Saturation 96.2 % (95.0-99.0) 03/11/21 13:14 PT/INR, D-dimer D-Dimer 1135.55 ng/mlDDU (0-234) H 03/09/21 13:14 Abnormal lab findings: Abnormal Labs 03/09/21 03/09/21 03/09/21 13:05 13:14 13:14 WBC RBC 3.36 L Hgb 9.6 L Hct 29.7 L RDW 16.6 H Plt Count 127 L Lymph % (Auto) Mchenry % (Auto) 11.8 H Eos % (Auto) 5.2 H Lymph # (Auto) 0.9 L Seg Neutrophils % D-Dimer ABG pH 7.278 L POC ABG pCO2 57.5 H POC ABG pO2 77.2 L ABG pO2 ABG Base Excess ABG Hemoglobin 11.0 L ABG Oxyhemoglobin ABG Potassium 4.8 H ABG Chloride 109.0 H Oxyhemoglobin Carboxyhemoglobin 0.4 L Sodium Potassium Chloride 107.3 H BUN 25 H Creatinine 2.1 H Glucose Calcium C-Reactive Protein Albumin 3.7 L 03/09/21 03/09/21 03/09/21 13:14 16:05 17:17 WBC RBC Hgb Hct RDW Plt Count Lymph % (Auto) Mchenry % (Auto) Eos % (Auto) Lymph # (Auto) Seg Neutrophils % D-Dimer 1135.55 H ABG pH 7.294 L POC ABG pCO2 52.9 H POC ABG pO2 136.2 H ABG pO2 ABG Base Excess ABG Hemoglobin 9.5 L ABG Oxyhemoglobin 98.1 H ABG Potassium 4.8 H ABG Chloride 110.0 H Oxyhemoglobin Carboxyhemoglobin 0.2 L Sodium Potassium Chloride BUN Creatinine Glucose Calcium C-Reactive Protein 5.00 H Albumin 03/10/21 03/10/21 03/11/21 04:48 04:48 04:37 WBC 4.3 L RBC 3.59 L 3.40 L Hgb 9.8 L Hct 30.1 L RDW 16.7 H 16.5 H Plt Count 136 L Lymph % (Auto) 9.8 L Mchenry % (Auto) 10.4 H Eos % (Auto) 5.6 H Lymph # (Auto) 0.4 L Seg Neutrophils % 87.6 H D-Dimer ABG pH POC ABG pCO2 POC ABG pO2 ABG pO2 ABG Base Excess ABG Hemoglobin ABG Oxyhemoglobin ABG Potassium ABG Chloride Oxyhemoglobin Carboxyhemoglobin Sodium Potassium 5.6 H Chloride BUN 29 H Creatinine 2.1 H Glucose 63 L Calcium C-Reactive Protein Albumin 03/11/21 03/11/21 03/12/21 04:37 13:14 05:34 WBC RBC 2.93 L Hgb 8.5 L Hct 25.7 L RDW 16.1 H Plt Count Lymph % (Auto) Mchenry % (Auto) Eos % (Auto) Lymph # (Auto) Seg Neutrophils % D-Dimer ABG pH 7.322 L POC ABG pCO2 POC ABG pO2 ABG pO2 79.5 L ABG Base Excess -2.6 L ABG Hemoglobin 10.1 L ABG Oxyhemoglobin ABG Potassium ABG Chloride Oxyhemoglobin 94.6 L Carboxyhemoglobin Sodium Potassium 5.6 H Chloride 111.3 H BUN 41 H Creatinine 2.3 H Glucose 134 H Calcium C-Reactive Protein Albumin 03/12/21 05:34 WBC RBC Hgb Hct RDW Plt Count Lymph % (Auto) Mchenry % (Auto) Eos % (Auto) Lymph # (Auto) Seg Neutrophils % D-Dimer ABG pH POC ABG pCO2 POC ABG pO2 ABG pO2 ABG Base Excess ABG Hemoglobin ABG Oxyhemoglobin ABG Potassium ABG Chloride Oxyhemoglobin Carboxyhemoglobin Sodium 146 H Potassium Chloride 111.1 H BUN 46 H Creatinine 2.9 H Glucose 148 H Calcium 7.9 L C-Reactive Protein Albumin
== END 2021-03-12 14:00 | disposition home or self-care (01) | DRG 175 ==
LOC: ED 12:12 → IMCU 16:28 → 3B-SURG 23:44 → IMCU 23:51 → 3A 03-10 15:05
PROVIDERS: ADMIT Internal Medicine; ATTEND Internal Medicine
PROC: 4A033R1 Measurement of Arterial Saturation, Peripheral, Percutaneous Approach (ICD-10-PCS; principal; 2021-03-09)
PROC: 5A09357 Assistance with Respiratory Ventilation, Less than 24 Consecutive Hours, Continuous Positive Airway Pressure (ICD-10-PCS; 2021-03-09)
DX: I26.99 Other pulmonary embolism without acute cor pulmonale (principal); J96.21 Acute and chronic respiratory failure with hypoxia; J18.9 Pneumonia, unspecified organism; N17.0 Acute kidney failure with tubular necrosis; J96.22 Acute and chronic respiratory failure with hypercapnia; J44.1 Chronic obstructive pulmonary disease with (acute) exacerbation; J44.0 Chronic obstructive pulmonary disease with (acute) lower respiratory infection; I13.0 Hypertensive heart and chronic kidney disease with heart failure and stage 1 through stage 4 chronic kidney disease, or unspecified chronic kidney disease; N18.4 Chronic kidney disease, stage 4 (severe); Z20.822 Contact with and (suspected) exposure to COVID-19; D63.8 Anemia in other chronic diseases classified elsewhere; J20.9 Acute bronchitis, unspecified; M19.90 Unspecified osteoarthritis, unspecified site; I49.5 Sick sinus syndrome; I25.10 Atherosclerotic heart disease of native coronary artery without angina pectoris; T38.0X5A Adverse effect of glucocorticoids and synthetic analogues, initial encounter; T48.6X5A Adverse effect of antiasthmatics, initial encounter; E87.5 Hyperkalemia; I50.9 Heart failure, unspecified; Z96.651 Presence of right artificial knee joint; I25.2 Old myocardial infarction; Z95.1 Presence of aortocoronary bypass graft; Z90.710 Acquired absence of both cervix and uterus; Z95.0 Presence of cardiac pacemaker; Z88.2 Allergy status to sulfonamides; Z88.6 Allergy status to analgesic agent; Z88.0 Allergy status to penicillin; Z79.899 Other long term (current) drug therapy; Y92.89 Other specified places as the place of occurrence of the external cause; Z98.42 Cataract extraction status, left eye; Z98.41 Cataract extraction status, right eye; Z87.891 Personal history of nicotine dependence; Z86.73 Personal history of transient ischemic attack (TIA), and cerebral infarction without residual deficits; Z82.49 Family history of ischemic heart disease and other diseases of the circulatory system
CPT/HCPCS: 36415; 36600; 71045; 78580; 80048; 80053; 82803; 82805; 83735; 83880; 84145; 84484; 85025; 85027; 85379; 86140; 87324; 87493; 93005; 93970; 94640; 94644; G0378; A9540; J0456; J1650; J2920; J7040; U0003

== ENCOUNTER 2021-03-15 13:13 | Inpatient (IN) | payer MEDICARE ==
[2021-03-15] MEDS ORDERED: AZITHROMYCIN/NS 500 MG/250 ML 500 MG/250 ML BAG IV ONE (13:46)
[2021-03-15] MEDS ORDERED: ALBUTEROL 2.5 MG/3 ML NEBU IH ONE (13:49)
[2021-03-15] MEDS ORDERED: methylPREDNISolone Sod Succinate 125 MG/2 ML INJ IV ONE (13:49)
[2021-03-15] MEDS ORDERED: IPRATROPIUM 0.02% NEBU 2.5 ML IH ONE (13:49)
--- NOTE | 2021-03-15 14:18 | XRay Report ---
CHEST 1 VIEW 03/15/2021 1:50 PM INDICATION / CLINICAL INFORMATION: worsening dyspnea. COMPARISON: 03/09/2021 FINDINGS: SUPPORT DEVICES: Stable, satisfactory device positioning. HEART / MEDIASTINUM: Stable. LUNGS / PLEURA: No significant pulmonary or pleural abnormality. No pneumothorax. Coarsened interstit ial lung markings are similar to prior exam, and likely chronic. ADDITIONAL FINDINGS: No significant additional findings. IMPRESSION: 1. No acute findings. No significant interval change since 03/09/2021. Signer Name: Luis Smiley MD Signed: 03/15/2021 2:14 PM Workstation Name: [id number]
--- NOTE | 2021-03-15 14:30 | Emergency Department Report ---
ED Shortness of Breath HPI - General Chief Complaint: Dyspnea/Respdistress Stated Complaint: SHORTNESS OF BREATH Time Seen by Provider: 03/15/21 13:38 Source: patient, EMS Mode of arrival: Stretcher Limitations: Physical Limitation - History of Present Illness Initial Comments: Patient is a 80-year-old F [place] female with a past medical history of hy pertension RI asthma/COPD coronary artery disease and congestive heart failure who is presenting with worsening shortness of breath. Patient states that she was admitted to the hospital from 03/09/2021 to 03/12/2021. Patient was noted to have bilateral pneumonia with O2 sat in the upper 80s. She had to be placed on BiPAP during that visit but was weaned off and eventually sent home. Patient also had diagnosed with acute on chronic kidney injury. Covid test was negative. Patient states she left the hospital on 03/12/2021 feeling relatively well. States today with any movement she is having significant worsening of her shortness of breath. She has had a cough that is nonproductive. States she is taken several neb treatments today which have not improved her symptoms. She denies any fevers chills nausea vomiting or diarrhea at this time. Patient states she did get her antibiotics filled and has been taking them. - Related Data Previous Rx's Medication Instructions Recorded Last Taken Type ALBUTEROL Inhaler(NF) [VENTOLIN 2 puff IH Q4H PRN #1 inha 11/01/18 08/07/19 Rx Inhaler(NF)] Famotidine [Pepcid] 20 mg PO DAILY #30 tablet 11/01/18 08/07/19 Rx Mirtazapine [Remeron 30mg TAB] 30 mg PO QHS PRN #30 tablet 11/01/18 08/07/19 Rx Apixaban [Eliquis starter pack] 5 mg PO . DIR #60 tab 03/12/21 Unknown Rx Budesonide/Formoterol Fumarate 2 puff IH DAILY #1 hfa.aer.ad 03/12/21 Unknown Rx [Symbicort 160-4.5 Mcg Inhaler] Ipratropium/Albuterol Sulfate 1 ampul IH QIDRT #120 ampul.neb 03/12/21 Unknown Rx [DUONEB *Not for PRN Use*] Prednisone [predniSONE 10 mg 10 mg PO .TAPER #1 tab.ds.pk 03/12/21 Unknown Rx (6-Day Pack, 21 Tabs)] Prednisone [predniSONE 10 mg 10 mg PO .TAPER #1 tab.ds.pk 03/12/21 Unknown Rx (6-Day Pack, 21 Tabs)] Allergies Allergy/AdvReac Type Severity Reaction Status Date / Time aspirin Allergy Hives Verified 03/15/21 13:33 Penicillins Allergy Hives Verified 03/15/21 13:33 Sulfa (Sulfonamide Allergy Hives Verified 03/15/21 13:33 Antibiotics) ED Review of Systems ROS: Stated complaint: SHORTNESS OF BREATH Other details as noted in HPI Comment: All other systems reviewed and negative ED Past Medical Hx - Past Medical History Hx Hypertension: Yes Hx CVA: Yes (x 2) Hx Heart Attack/AMI: Yes Hx Congestive Heart Failure: Yes Hx Diabetes: No Hx Deep Vein Thrombosis: No Hx Pulmonary Embolism: No Hx Liver Disease: No Hx Renal Disease: Yes Hx Sickle Cell Disease: No Hx Arthritis: Yes Hx Headaches / Migraines: No Hx Seizures: No Hx Kidney Stones: No Hx Psychiatric Treatment: No Hx Asthma: Yes Hx COPD: Yes Hx Tuberculosis: No Hx Dementia: No Hx HIV: No Additional medical history: Chronic Bronchitis - Surgical History Hx Coronary Stent: No Hx Open Heart Surgery: Yes Hx Pacemaker: Yes Hx Internal Defibrillator: No Hx Cholecystectomy: No Hx Appendectomy: No Hx Breast Surgery: No Additional Surgical History: Right Knee Surgery , demand pacemaker (90's). Hyst. cataract removal in both eyes, - Social History Smoking Status: Never Smoker Substance Use Type: None - Medications Home Medications: Home Medications Medication Instructions Recorded Confirmed Last Taken Type ALBUTEROL Inhaler(NF) [VENTOLIN 2 puff IH Q4H PRN #1 inha 11/01/18 01/23/21 08/07/19 Rx Inhaler(NF)] Famotidine [Pepcid] 20 mg PO DAILY #30 tablet 11/01/18 01/23/21 08/07/19 Rx Mirtazapine [Remeron 30mg TAB] 30 mg PO QHS PRN #30 tablet 11/01/18 01/23/21 08/07/19 Rx Apixaban [Eliquis starter pack] 5 mg PO . DIR #60 tab 03/12/21 Unknown Rx Budesonide/Formoterol Fumarate 2 puff IH DAILY #1 hfa.aer.ad 03/12/21 Unknown Rx [Symbicort 160-4.5 Mcg Inhaler] Ipratropium/Albuterol Sulfate 1 ampul IH QIDRT #120 ampul.neb 03/12/21 Unknown Rx [DUONEB *Not for PRN Use*] Prednisone [predniSONE 10 mg 10 mg PO .TAPER #1 tab.ds.pk 03/12/21 Unknown Rx (6-Day Pack, 21 Tabs)] Prednisone [predniSONE 10 mg 10 mg PO .TAPER #1 tab.ds.pk 03/12/21 Unknown Rx (6-Day Pack, 21 Tabs)] ED Physical Exam - General Limitations: Physical Limitation General appearance: alert, in no apparent distress - Head Head exam: Present: atraumatic, normocephalic - Eye Eye exam: Present: normal appearance - ENT ENT exam: Present: mucous membranes moist - Neck Neck exam: Present: normal inspection - Respiratory Respiratory exam: Present: respiratory distress, wheezes, rhonchi, decreased breath sounds. Absent: normal lung sounds bilaterally, rales, chest wall tenderness - Cardiovascular Cardiovascular Exam: Present: regular rate, normal rhythm, normal heart sounds. Absent: systolic murmur, diastolic murmur, rubs, gallop - GI/Abdominal GI/Abdominal exam: Present: soft, normal bowel sounds. Absent: distended, tenderness, guarding, rebound - Extremities Exam Extremities exam: Present: normal inspection - Back Exam Back exam: Present: normal inspection - Neurological Exam Neurological exam: Present: alert, oriented X3 - Psychiatric Psychiatric exam: Present: normal affect, normal mood - Skin Skin exam: Present: warm, dry, intact, normal color. Absent: rash ED Course Vital Signs 03/15/21 03/15/21 03/15/21 13:30 13:33 13:45 Temperature 97.5 F L Pulse Rate 104 H 104 H 107 H Pulse Rate [ Bilateral Throughout] Respiratory 26 H 21 20 Rate Respiratory Rate [Bilateral Throughout] Blood Pressure 111/79 O2 Sat by Pulse 98 90 Oximetry 03/15/21 03/15/21 03/15/21 14:01 14:15 14:25 Temperature Pulse Rate 102 H 109 H Pulse Rate [ 103 H Bilateral Throughout] Respiratory 22 18 Rate Respiratory 23 Rate [Bilateral Throughout] Blood Pressure O2 Sat by Pulse 100 74 L Oximetry 03/15/21 03/15/21 03/15/21 14:31 14:45 15:01 Temperature Pulse Rate 105 H 104 H 106 H Pulse Rate [ Bilateral Throughout] Respiratory 23 22 23 Rate Respiratory Rate [Bilateral Throughout] Blood Pressure 138/83 146/75 141/73 O2 Sat by Pulse 100 100 100 Oximetry 03/15/21 03/15/21 03/15/21 15:15 15:31 15:45 Temperature Pulse Rate 106 H 109 H 110 H Pulse Rate [ Bilateral Throughout] Respiratory 24 23 22 Rate Respiratory Rate [Bilateral Throughout] Blood Pressure 139/68 134/60 128/64 O2 Sat by Pulse 100 100 100 Oximetry 03/15/21 03/15/21 03/15/21 16:01 16:15 16:31 Temperature Pulse Rate 110 H 109 H 113 H Pulse Rate [ Bilateral Throughout] Respiratory 20 22 24 Rate Respiratory Rate [Bilateral Throughout] Blood Pressure 138/66 133/63 133/63 O2 Sat by Pulse 100 100 100 Oximetry 03/15/21 03/15/21 16:45 17:01 Temperature Pulse Rate 108 H 115 H Pulse Rate [ Bilateral Throughout] Respiratory 20 23 Rate Respiratory Rate [Bilateral Throughout] Blood Pressure 119/64 119/60 O2 Sat by Pulse 98 96 Oximetry ED Medical Decision Making - Lab Data Result diagrams: 03/15/21 14:07 03/15/21 16:26 - EKG Data -: EKG Interpreted by Mo - EKG Data 03/15/21 18:07 EKG shows a sinus tachycardia 105. [place] is leftward. Right bundle branch block type pattern. LVH is probable. No ST segment elevations or depressions. Time of interpretation 1330 - Radiology Data Patient: DANN STALLINGS MR#: [id number] : 1940 Acct:[id number] Age/Sex: 80 / F ADM Date: 03/15/21 Loc: ED Attending Dr: Ordering Physician: STEPH ARRINGTON MD Date of Service: 03/15/21 Procedure(s): XR chest 1V ap Accession Number(s): [id number] cc: STEPH ARRINGTON MD Fluoro Time In Minutes: CHEST 1 VIEW 03/15/2021 1:50 PM INDICATION / CLINICAL INFORMATION: worsening dyspnea. COMPARISON: 03/09/2021 FINDINGS: SUPPORT DEVICES: Stable, satisfactory device positioning. HEART / MEDIASTINUM: Stable. LUNGS / PLEURA: No significant pulmonary or pleural abnormality. No pneumothorax. Coarsened interstitial lung markings are similar to prior exam, and likely chronic. ADDITIONAL FINDINGS: No significant additional findings. IMPRESSION: 1. No acute findings. No significant interval change since 03/09/2021. Signer Name: Luis Smiley MD Signed: 03/15/2021 2:14 PM Workstation Name: [id number] - Medical Decision Making Patient is a 80-year-old F [place] female who is presenting with worsening shortness of breath. States when she left the hospital 3 to 4 days ago after being diagnosed with acute on chronic renal insufficiency and pneumonia she was feeling much improved. She does walk with a walker was able to ambulate within her home. Today with any movement the patient is getting very short of breath. Patient received hour-long neb of 10 of albuterol 1 of Atrovent and Solu-Medrol. Patient is continued to have episodes of hypoxia with minimal exertion. After the day of treatment was sitting up patient dropped to 88% on 3 L. Patient rebounded when she sat still to the mid 90s but when she ambulated to the bathroom she desatted again to the mid 80s. Patient to be admitted to the hospital service. Critical Care Time: Yes (30) Critical care attestation.: If time is entered above; I have spent that time in minutes in the direct care of this critically ill patient, excluding procedure time. ED Disposition Clinical Impression: Acute respiratory distress, COPD exacerbation, Hypoxia, Shortness of breath CKD (chronic kidney disease) Qualifiers: Chronic kidney disease stage: stage 4 (severe) Qualified Code(s): N18.4 - Chronic kidney disease, stage 4 (severe) Disposition: OP ADMIT IP TO THIS HOSP Is pt being admited?: Yes Does the pt Need Aspirin: No Condition: Stable Instructions: Chronic Obstructive Pulmonary Disease (ED) Referrals: TOM GARDUNO MD [Primary Care Provider] - 3-5 Days Time of Disposition: 18:11
[2021-03-15 14:41] LABS: Basophils # (Auto) 0.1 K/mm3 (0.0-0.1); Basophils % (Auto) 0.9 % (0.0-1.8); Eosinophils # (Auto) 0.3 K/mm3 (0.0-0.4); Eosinophils % (Auto) 5.6 % (0.0-4.3); Hematocrit 31.2 % (30.3-42.9); Lymphocytes # (Auto) 1.2 K/mm3 (1.2-5.4); Lymphocytes % (Auto) 20.4 % (13.4-35.0); Mean Corpuscular HGB Conc 32 % (30-34); Mean Corpuscular Volume 88 fl (79-97); Monocytes # (Auto) 0.4 K/mm3 (0.0-0.8); Platelet Count 245 K/mm3 (140-440); Red Blood Count 3.54 M/mm3 (3.65-5.03); Red Cell Distribution Width 16.4 % (13.2-15.2)
[2021-03-15] MEDS ORDERED: FUROSEMIDE 40 MG/4 ML INJ IV ONE (15:19)
[2021-03-15 17:07] LABS: BUN/Creatinine Ratio TNR; Blood Urea Nitrogen TNR mg/dL (7-17); Calcium TNR mg/dL (8.4-10.2)
[2021-03-15 17:08] LABS: Alanine Aminotransferase TNR units/L (7-56); Albumin TNR g/dL (3.9-5); Hemolysis Index TNR
[2021-03-15 18:21] LABS: Calcium 8.2 mg/dL (8.4-10.2)
[2021-03-15] MEDS ORDERED: ALBUTEROL 8.5 GM MDI INHALATION IH PRN (23:20)
[2021-03-15] MEDS ORDERED: IPRATROPIUM/ALBUTEROL SULFATE 3 ML AMPUL.NEB IH PRN (23:21)
[2021-03-15] MEDS ORDERED: ALBUTEROL 2.5 MG/3 ML NEBU IH PRN (23:26)
[2021-03-15] MEDS ORDERED: APIXABAN 5 MG PO SCH (23:30)
[2021-03-16] MEDS: methylPREDNISolone Sod Succinate 40 MG/1 ML INJ IV SCH ×4 (00:06→21:23)
--- NOTE | 2021-03-16 07:18 | History and Physical Report ---
History of Present Illness Date of examination: 03/15/21 Date of admission: 03/15/21 18:12 Chief complaint: Increasing shortness of breath for 2 days History of present illness: 80-year-old female with history of COPD, congestive heart failure, coronary artery disease recently admitted for pneumonia and discharged on the comes back for increasing shortness of breath. Patient also has a cough which is nonproductive. Patient was diagnosed with pneumonia and COPD exacerbation. No fever or chills. Patient continues to be having increasing shortness of breath. Orthopnea present. No chest pain. No fever or chills. No recent exposure to coronavirus. Patient has class IV NYHA symptoms. - Past Medical History --Hypertension: Yes ==CVA: Yes (x 2) --Heart Attack/AMI: Yes --Congestive Heart Failure: Yes --Renal Disease: Yes --Arthritis: Yes --Asthma: Yes --COPD: Yes Additional medical history: Chronic Bronchitis - Surgical History --Open Heart Surgery: Yes -- Pacemaker: Yes Additional Surgical History: Right Knee Surgery , demand pacemaker ('). Hyst. cataract removal in both eyes, - Social History Smoking Status: Never Smoker Substance Use Type: None Review of Systems ROS: Constitutional respiratory distress present HEENT no sore throat no post nasal drip no diplopia Neck no neck stiffness no lymph gland enlargement Chest and lungs shortness of breath and wheezing present CVS no chest pain no diaphoresis no palpitations GI no nausea no vomiting no diarrhea Genitourinary system no dysuria no flank pain Musculoskeletal system no muscle pains no joint pains [employer] no syncope no seizures Skin no rash no itching Psychiatric no depression no homicidal or suicidal tendencies Hematologic no lymphedema or bruising Endocrine no polydipsia no polyuria no cold intolerance no heat intolerance Medications and Allergies Allergies Allergy/AdvReac Type Severity Reaction Status Date / Time aspirin Allergy Hives Verified 03/15/21 13:33 Penicillins Allergy Hives Verified 03/15/21 13:33 Sulfa (Sulfonamide Allergy Hives Verified 03/15/21 13:33 Antibiotics) Home Medications Medication Instructions Recorded Confirmed Last Taken Type ALBUTEROL Inhaler(NF) [VENTOLIN 2 puff IH Q4H PRN #1 inha 11/01/18 01/23/21 08/07/19 Rx Inhaler(NF)] Famotidine [Pepcid] 20 mg PO DAILY #30 tablet 11/01/18 01/23/21 08/07/19 Rx Mirtazapine [Remeron 30mg TAB] 30 mg PO QHS PRN #30 tablet 11/01/18 01/23/2108/16 Rx Apixaban [Eliquis starter pack] 5 mg PO . DIR #60 tab 03/12/21 Unknown Rx Budesonide/Formoterol Fumarate 2 puff IH DAILY #1 hfa.aer.ad 03/12/21 Unknown Rx [Symbicort 160-4.5 Mcg Inhaler] Ipratropium/Albuterol Sulfate 1 ampul IH QIDRT #120 ampul.neb 03/12/21 Unknown Rx [DUONEB *Not for PRN Use*] Prednisone [predniSONE 10 mg 10 mg PO .TAPER #1 tab.ds.pk 03/12/21 Unknown Rx (6-Day Pack, 21 Tabs)] Prednisone [predniSONE 10 mg 10 mg PO .TAPER #1 tab.ds.pk 03/12/21 Unknown Rx (6-Day Pack, 21 Tabs)] Exam - Constitutional Vitals: Temp Pulse Resp BP Pulse Ox 98.0 F 113 H 18 141/75 95 03/15/21 20:14 03/15/21 20:22 03/15/21 20:14 03/15/21 20:14 03/15/21 20:14 General appearance: Present: severe distress, well-nourished - EENT Eyes: Present: PERRL ENT: hearing intact, clear oral mucosa - Neck Neck: Present: supple, normal ROM - Respiratory Respiratory effort: normal Respiratory: bilateral: CTA, rhonchi, wheezing - Cardiovascular Heart rate: 98 Rhythm: regular Heart Sounds: Present: S1 & S2. Absent: rub, click - Extremities Extremities: pulses symmetrical, No edema Peripheral Pulses: within normal limits - Abdominal General gastrointestinal: Present: soft, non-tender, non-distended, normal bowel sounds Female genitourinary: Present: normal - Integumentary Integumentary: Present: clear, warm, dry - Musculoskeletal Musculoskeletal: gait normal, strength equal bilaterally - Psychiatric Psychiatric: appropriate mood/affect, intact judgment & insight - Neurologic Neurologic: CNII-XII intact, moves all extremities - Allied Health Allied health notes reviewed: nursing, case management HEART Score - HEART Score History: Moderately suspicious Risk factors: > 3 risk factors or hx of atherosclerotic disease Troponin: Troponin T 0.029 ng/mL (0.00-0.029) 03/15/21 14:35 Troponin: < normal limit - Critical Actions Critical Actions: 4-6 pts:12-16.6% risk of adverse cardiac event. Should be admitted Results - Labs CBC & Chem 7: 03/15/21 14:07 03/15/21 Unknown Labs: Laboratory Last Values WBC 5.9 K/mm3 (4.5-11.0) 03/15/21 14:07 RBC 3.54 M/mm3 (3.65-5.03) L 03/15/21 14:07 Hgb 10.0 gm/dl (10.1-14.3) L 03/15/21 14:07 Hct 31.2 % (30.3-42.9) 03/15/21 14:07 MCV 88 fl (79-97) 03/15/21 14:07 MCH 28 pg (28-32) 03/15/21 14:07 MCHC 32 % (30-34) 03/15/21 14:07 RDW 16.4 % (13.2-15.2) H 03/15/21 14:07 Plt Count 245 K/mm3 (140-440) 03/15/21 14:07 Lymph % (Auto) 20.4 % (13.4-35.0) 03/15/21 14:07 [place] % (Auto) 6.0 % (0.0-7.3) 03/15/21 14:07 Eos % (Auto) 5.6 % (0.0-4.3) H 03/15/21 14:07 Baso % (Auto) 0.9 % (0.0-1.8) 03/15/21 14:07 Lymph # (Auto) 1.2 K/mm3 (1.2-5.4) 03/15/21 14:07 [place] # (Auto) 0.4 K/mm3 (0.0-0.8) 03/15/21 14:07 Eos # (Auto) 0.3 K/mm3 (0.0-0.4) 03/15/21 14:07 Baso # (Auto) 0.1 K/mm3 (0.0-0.1) 03/15/21 14:07 Seg Neutrophils % 67.1 % (40.0-70.0) 03/15/21 14:07 Seg Neutrophils # 4.0 K/mm3 (1.8-7.7) 03/15/21 14:07 Sodium 145 mmol/L (137-145) 03/15/21 Unknown Potassium 4.8 mmol/L (3.6-5.0) 03/15/21 Unknown Chloride 109.2 mmol/L (98-107) H 03/15/21 Unknown Carbon Dioxide 21 mmol/L (22-30) L 03/15/21 Unknown Anion Gap 20 mmol/L 03/15/21 Unknown BUN 48 mg/dL (7-17) H 03/15/21 Unknown Creatinine 3.9 mg/dL (0.6-1.2) H 03/15/21 Unknown Estimated GFR 13 ml/min 03/15/21 Unknown BUN/Creatinine Ratio 12 % 03/15/21 Unknown Glucose 69 mg/dL (65-100) 03/15/21 Unknown Lactic Acid 0.90 mmol/L (0.7-2.0) 03/15/21 16:26 Calcium 8.2 mg/dL (8.4-10.2) L 03/15/21 Unknown Total Bilirubin TNR 03/15/21 14:07 AST TNR 03/15/21 14:07 ALT TNR 03/15/21 14:07 Alkaline Phosphatase TNR 03/15/21 14:07 Troponin T 0.029 ng/mL (0.00-0.029) 03/15/21 14:35 NT-Pro-B Natriuret Pep 1245 pg/mL (0-900) H 03/15/21 14:07 Total Protein TNR 03/15/21 14:07 Albumin TNR 03/15/21 14:07 Albumin/Globulin Ratio TNR 03/15/21 14:07 Short CBC 03/15/21 Range/Units 14:07 WBC 5.9 (4.5-11.0) K/mm3 Hgb 10.0 L (10.1-14.3) gm/dl Hct 31.2 (30.3-42.9) % Plt Count 245 (140-440) K/mm3 BMP 03/15/21 03/15/21 03/15/21 14:07 16:26 Unknown Sodium TNR 145 Potassium TNR 4.8 4.8 Chloride TNR 109.2 H Carbon Dioxide TNR 21 L BUN TNR 48 H Creatinine TNR 3.9 H Glucose TNR 69 Calcium TNR 8.2 L Cardiac Enzymes 03/15/21 Range/Units 14:35 Troponin T 0.029 (0.00-0.029) ng/mL Liver Function 03/15/21 Range/Units 14:07 Total Bilirubin TNR AST TNR ALT TNR Alkaline Phosphatase TNR Albumin TNR Microbiology: Microbiology 03/15/21 14:07 Peripheral/Venous Blood Culture - Preliminary Culture in Progress 03/15/21 14:07 Peripheral/Venous Blood Culture - Preliminary Culture in Progress - Imaging and Cardiology EKG: report reviewed (Sinus tachycardia no acute ST-T wave changes) Chest x-ray: report reviewed Imaging and Cardiology: Chest x-ray No acute findings No significant interval change from 03/09/2021 Assessment and Plan Advance Directives: Yes (Full code) VTE prophylaxis?: Chemical Plan of care discussed with patient/family: Yes - Patient Problems (1) Acute respiratory failure with hypoxia Current Visit: Yes Status: Acute Plan to address problem: Patient is hypoxic Multifactorial CHF and COPD No recent echo available We will get echocardiogram Last 2 visits reviewed IV Lasix and duo nebs (2) COPD exacerbation Current Visit: Yes Status: Acute Plan to address problem: Duo nebs and IV Solu-Medrol and IV Levaquin (3) Acute exacerbation of CHF (congestive heart failure) Current Visit: Yes Status: Acute Qualifiers: Heart failure type: combined systolic and diastolic Qualified Code(s): I50.43 - Acute on chronic combined systolic (congestive) and diastolic (congestive) heart failure Plan to address problem: IV Lasix for now Patient is elevated creatinine Cardiology and renal consult Echocardiogram for ejection fraction (4) Hypertension Current Visit: Yes Status: Chronic Qualifiers: Hypertension type: essential hypertension Qualified Code(s): I10 - Essential (primary) hypertension Plan to address problem: Continue antihypertensives (5) Coronary artery disease Current Visit: Yes Status: Chronic Qualifiers: Coronary Disease-Associated Artery/Lesion type: [place] artery [place] vs. transplanted heart: [place] heart Plan to address problem: Continue aspirin and isosorbide mononitrate (6) Chronic kidney disease Current Visit: Yes Status: Chronic Qualifiers: Chronic kidney disease stage: stage 4 (severe) Qualified Code(s): N18.4 - Chronic kidney disease, stage 4 (severe) Plan to address problem: Renal consult requested by Dr. Carr (7) DVT prophylaxis Current Visit: Yes Status: Acute Plan to address problem: On heparin and GI prophylaxis
--- NOTE | 2021-03-16 08:38 | Progress Note ---
Assessment and Plan Assessment and plan: --Acute respiratory failure with hypoxia Multifactorial Exacerbation of CHF and COPD and renal failure Treat the underlying cause Oxygen titrate O2 sats to more than 90% Antifailure medications, nebulizer treatments Evaluation for home oxygen at discharge --Acute exacerbation of COPD Duo nebs and IV Solu-Medrol and IV Levaquin Oxygen titrate O2 sats to more than 90% BiPAP as needed Follow pulmonary evaluation --Congestive heart failure unspecified EF last EF 50 to 55% [2019] Follow cardiology evaluation recommendations Antifailure medications -- Hypertension moderate control Continue current antihypertensives As needed medications --History of coronary artery disease Continue current cardiac medications. Follow cardiology recommendations -Possible PE on VQ scan[last admission] Continue Eliquis as before Unable to get CTA to confirm due to renal failure --Chronic kidney disease Monitor renal function .avoid nephrotoxins Follow nephrology evaluation recommendations -- DVT prophylaxis Subcu heparin and SCDs Closely monitor the patient and adjust management as needed Ambulate as tolerated Plan of care reviewed with patient and his nurse 03/16/2021; patient feels slightly better on 2 to 3 L of nasal cannula oxygen Follow cardiology, nephrology and pulmonary evaluation recommendations Possible discharge in 1 to 2 days if stable History Interval history: I have seen and examined the patient at the bedside Patient's chart and medications reviewed Admitted with acute shortness of breath Multifocal probably due to fluid overload due to Chronic renal failure, COPD exacerbation as well as CHF exacerbation Patient in mild distress Vital signs reviewed Hospitalist Physical - Constitutional Vitals: Temp Pulse Resp BP Pulse Ox 98.5 F 96 H 20 133/70 97 03/16/21 07:40 03/16/21 07:40 03/16/21 07:40 03/16/21 07:40 03/16/21 07:40 General appearance: Present: severe distress, well-nourished - EENT Eyes: Present: PERRL, EOM intact - Neck Neck: Present: supple, normal ROM, enlarged thyroid - Respiratory Respiratory effort: normal Respiratory: bilateral: diminished, rhonchi, negative: rales, wheezing - Cardiovascular Rhythm: regular Heart Sounds: Present: S1 & S2 - Extremities Extremities: no ischemia, No edema - Abdominal General gastrointestinal: soft, non-tender, non-distended, normal bowel sounds - Integumentary Integumentary: Present: clear, warm - Psychiatric Psychiatric: appropriate mood/affect, cooperative - Neurologic Neurologic: CNII-XII intact, moves all extremities HEART Score - HEART Score Risk factors: > 3 risk factors or hx of atherosclerotic disease Troponin: Troponin T 0.029 ng/mL (0.00-0.029) 03/15/21 14:35 Troponin: < normal limit - Critical Actions Critical Actions: 4-6 pts:12-16.6% risk of adverse cardiac event. Should be a dmitted Results - Labs CBC & Chem 7: 03/15/21 14:07 03/15/21 Unknown Labs: Laboratory Last Values WBC 5.9 K/mm3 (4.5-11.0) 03/15/21 14:07 RBC 3.54 M/mm3 (3.65-5.03) L 03/15/21 14:07 Hgb 10.0 gm/dl (10.1-14.3) L 03/15/21 14:07 Hct 31.2 % (30.3-42.9) 03/15/21 14:07 MCV 88 fl (79-97) 03/15/21 14:07 MCH 28 pg (28-32) 03/15/21 14:07 MCHC 32 % (30-34) 03/15/21 14:07 RDW 16.4 % (13.2-15.2) H 03/15/21 14:07 Plt Count 245 K/mm3 (140-440) 03/15/21 14:07 Lymph % (Auto) 20.4 % (13.4-35.0) 03/15/21 14:07 [place] % (Auto) 6.0 % (0.0-7.3) 03/15/21 14:07 Eos % (Auto) 5.6 % (0.0-4.3) H 03/15/21 14:07 Baso % (Auto) 0.9 % (0.0-1.8) 03/15/21 14:07 Lymph # (Auto) 1.2 K/mm3 (1.2-5.4) 03/15/21 14:07 [place] # (Auto) 0.4 K/mm3 (0.0-0.8) 03/15/21 14:07 Eos # (Auto) 0.3 K/mm3 (0.0-0.4) 03/15/21 14:07 Baso # (Auto) 0.1 K/mm3 (0.0-0.1) 03/15/21 14:07 Seg Neutrophils % 67.1 % (40.0-70.0) 03/15/21 14:07 Seg Neutrophils # 4.0 K/mm3 (1.8-7.7) 03/15/21 14:07 Sodium 145 mmol/L (137-145) 03/15/21 Unknown Potassium 4.8 mmol/L (3.6-5.0) 03/15/21 Unknown Chloride 109.2 mmol/L (98-107) H 03/15/21 Unknown Carbon Dioxide 21 mmol/L (22-30) L 03/15/21 Unknown Anion Gap 20 mmol/L 03/15/21 Unknown BUN 48 mg/dL (7-17) H 03/15/21 Unknown Creatinine 3.9 mg/dL (0.6-1.2) H 03/15/21 Unknown Estimated GFR 13 ml/min 03/15/21 Unknown BUN/Creatinine Ratio 12 % 03/15/21 Unknown Glucose 69 mg/dL (65-100) 03/15/21 Unknown Lactic Acid 0.90 mmol/L (0.7-2.0) 03/15/21 16:26 Calcium 8.2 mg/dL (8.4-10.2) L 03/15/21 Unknown Total Bilirubin TNR 03/15/21 14:07 AST TNR 03/15/21 14:07 ALT TNR 03/15/21 14:07 Alkaline Phosphatase TNR 03/15/21 14:07 Troponin T 0.029 ng/mL (0.00-0.029) 03/15/21 14:35 NT-Pro-B Natriuret Pep 1245 pg/mL (0-900) H 03/15/21 14:07 Total Protein TNR 03/15/21 14:07 Albumin TNR 03/15/21 14:07 Albumin/Globulin Ratio TNR 03/15/21 14:07 Microbiology: Microbiology 03/15/21 14:07 Peripheral/Venous Blood Culture - Preliminary Culture in Progress 03/15/21 14:07 Peripheral/Venous Blood Culture - Preliminary Culture in Progress Herrera/IV: Voiding Method Bedside Commode Active Medications - Current Medications Current Medications: Generic Name Dose Route Start Last Admin Trade Name Freq PRN Reason Stop Dose Admin Albuterol 2.5 mg 03/15/21 23:26 Albuterol 2.5 Mg/3 Ml Nebu IH Q4HRT PRN Shortness Of Breath Albuterol/Ipratropium 1 ampul 03/16/21 08:00 Ipratropium/Albuterol Sulfate 3 Ml Ampul.Neb IH QIDRT [facility] Apixaban 10 mg 03/16/21 10:00 Apixaban 5 Mg Tab PO 03/18/21 22:01 Q12HR [facility] Apixaban 5 mg 03/19/21 10:00 Apixaban 5 Mg Tab PO Q12HR [facility] Arformoterol Tartrate 15 mcg 03/16/21 08:00 Arformoterol 15 Mcg/2 Ml Nebu IH Q12HRT [facility] Budesonide 0.5 mg 03/16/21 08:00 Budesonide 0.5 Mg/2 Ml Nebu IH Q12HRT [facility] Famotidine 20 mg 03/16/21 10:00 Famotidine 20 Mg Tab PO DAILY [facility] Furosemide 40 mg 03/16/21 10:00 Furosemide 40 Mg/4 Ml Inj IV QDAY [facility] Heparin Sodium (Porcine) 5,000 unit 03/16/21 10:00 Heparin 5,000 Unit/1 Ml Vial SUB-Q Q12HR [facility] Levofloxacin/Dextrose 750 mg in 150 mls @ 100 mls/hr 03/16/21 10:00 Levaquin 750mg/150ml IV Q48HR [facility] Protocol Methylprednisolone Sodium Succinate 80 mg 03/15/21 23:45 03/16/21 06:06 Methylprednisolone Sod Succinate 40 Mg/1 Ml Inj IV 80 mg Q8HR [facility] Administration Mirtazapine 30 mg 03/15/21 23:20 Mirtazapine 15 Mg Tab PO QHS PRN Insomnia Potassium Chloride 20 meq 03/16/21 10:00 Potassium Chloride Er 20 Meq Tab PO QDAY [facility]
[2021-03-16] MEDS: BUDESONIDE 0.5 MG/2 ML NEBU IH SCH ×2 (09:23→20:26)
[2021-03-16] MEDS: IPRATROPIUM/ALBUTEROL SULFATE 3 ML AMPUL.NEB IH SCH ×4 (09:23→20:26)
[2021-03-16] MEDS: ARFORMOTEROL 15 MCG/2 ML NEBU IH SCH ×2 (09:23→20:26)
[2021-03-16] MEDS ORDERED: FUROSEMIDE 40 MG/4 ML INJ IV SCH (10:00)
[2021-03-16] MEDS ORDERED: NON-FORMULARY EACH (Budesonide/Formoterol Fumarate [Symbicort 160-4.5 Mcg Inhaler] 10.2 GM IH SCH (10:00)
[2021-03-16] MEDS ORDERED: POTASSIUM CHLORIDE ER 20 MEQ TAB PO SCH (10:00)
[2021-03-16] MEDS ORDERED: HEPARIN 5,000 UNIT/1 ML VIAL SUB-Q SCH (10:00)
[2021-03-16] MEDS: APIXABAN 5 MG TAB PO SCH ×2 (10:01→21:24)
[2021-03-16] MEDS: FAMOTIDINE 20 MG TAB PO SCH (10:01)
--- NOTE | 2021-03-16 10:48 | Electrocardiograph Report ---
[facility] Test Date: 2021-03-15 Test Time: 13:25:17 Pat Name: DANN STALLINGS Department: Room: A454 Gender: F Fur Farmer: TV : 1940 Requested By: STEPH ARRINGTON Order Number: [id number] Reading MD: Charli Ortega Measurements Intervals [place] Rate: 105 P: 82 WI: 153 QRS: -75 QRSD: 129 T: 66 QT: 367 QTc: 487 Interpretive Statements Sinus tachycardia Left atrial enlargement Right bundle branch block Compared to ECG 03/09/2021 12:25:01 Intraventricular conduction delay now present Early repolarization now present Sinus rhythm no longer present Left anterior fascicular block no longer present Electronically Signed On 03-16-2021 10:48:06 EDT by Charli Ortega
--- NOTE | 2021-03-16 11:08 | Consultation ---
History of Present Illness Consult date: 03/16/21 Consult reason: congestive heart failure History of present illness: This is an 80-year old F with COPD on oxygen therapy, who presents with shor tness of breath and COPD exacerbation. Of note, patient was just discharged from this hospital with acute hypoxic respiratory failure, COPD exacerbation, and concern for pulmonary embolisim with abnormal V/Q scan. She is on Eliquis for oral anticoagulation. COVID serology was negative. Chest x-ray findings are consistent with chronic lung disease. No evidence of interstitial edema. Laboratory studies shows a creatinine of 3.9, up from 2.9 on labs done 03/12. An ECG is sinus rhythm with LVH and chronic RBBB. Patient has a dual chamber pacemaker for sick sinus syndrome. There is no history of coronary artery disease. In 2008, a cardiac catheterization demonstrated normal coronary arteries. September 2018 she had a negative thallium stress test. She has mild aortic stenosis, followed up on serial echocardiograms. Most recent echocardiogram 6 months ago showed left ventricular ejection fraction 50 to 55%, and a mild aortic valve mean gradient of 6.8. Past History Past Medical History: COPD, hypertension, renal failure, other (SSS) Past Surgical History: Other (PPM) Medications and Allergies Allergies Allergy/AdvReac Type Severity Reaction Status Date / Time aspirin Allergy Hives Verified 03/15/21 13:33 Penicillins Allergy Hives Verified 03/15/21 13:33 Sulfa (Sulfonamide Allergy Hives Verified 03/15/21 13:33 Antibiotics) Home Medications Medication Instructions Recorded Confirmed Last Taken Type ALBUTEROL Inhaler(NF) [VENTOLIN 2 puff IH Q4H PRN #1 inha 11/01/18 01/23/21 08/07/19 Rx Inhaler(NF)] Famotidine [Pepcid] 20 mg PO DAILY #30 tablet 11/01/18 01/23/21 08/07/19 Rx Mirtazapine [Remeron 30mg TAB] 30 mg PO QHS PRN #30 tablet 11/01/18 01/23/21 08/07/19 Rx Apixaban [Eliquis starter pack] 5 mg PO . DIR #60 tab 03/12/21 Unknown Rx Budesonide/Formoterol Fumarate 2 puff IH DAILY #1 hfa.aer.ad 03/12/21 Unknown Rx [Symbicort 160-4.5 Mcg Inhaler] Ipratropium/Albuterol Sulfate 1 ampul IH QIDRT #120 ampul.neb 03/12/21 Unknown Rx [DUONEB *Not for PRN Use*] Prednisone [predniSONE 10 mg 10 mg PO .TAPER #1 tab.ds.pk 03/12/21 Unknown Rx (6-Day Pack, 21 Tabs)] Prednisone [predniSONE 10 mg 10 mg PO .TAPER #1 tab.ds.pk 03/12/21 Unknown Rx (6-Day Pack, 21 Tabs)] Active Meds: Active Medications Albuterol (Albuterol 2.5 Mg/3 Ml Nebu) 2.5 mg IH Q4HRT PRN PRN Reason: Shortness Of Breath Albuterol/Ipratropium (Ipratropium/Albuterol Sulfate 3 Ml Ampul.Neb) 1 ampul IH QIDRT [facility] Last Admin: 03/16/21 09:23 Dose: 1 ampul Documented by: Apixaban (Apixaban 5 Mg Tab) 10 mg PO Q12HR [facility] Stop: 03/18/21 22:01 Last Admin: 03/16/21 10:01 Dose: 10 mg Documented by: Apixaban (Apixaban 5 Mg Tab) 5 mg PO Q12HR [facility] Arformoterol Tartrate (Arformoterol 15 Mcg/2 Ml Nebu) 15 mcg IH Q12HRT [facility] Last Admin: 03/16/21 09:23 Dose: 15 mcg Documented by: Budesonide (Budesonide 0.5 Mg/2 Ml Nebu) 0.5 mg IH Q12HRT [facility] Last Admin: 03/16/21 09:23 Dose: 0.5 mg Documented by: Famotidine (Famotidine 20 Mg Tab) 20 mg PO DAILY [facility] Last Admin: 03/16/21 10:01 Dose: 20 mg Documented by: Furosemide (Furosemide 40 Mg/4 Ml Inj) 40 mg IV QDAY [facility] Last Admin: 03/16/21 10:02 Dose: 40 mg Documented by: Levofloxacin/Dextrose (Levaquin 750mg/150ml) 750 mg in 150 mls @ 100 mls/hr IV Q48HR [facility]; Protocol Last Admin: 03/16/21 10:01 Dose: 100 mls/hr Documented by: Methylprednisolone Sodium Succinate (Methylprednisolone Sod Succinate 40 Mg/1 Ml Inj) 80 mg IV Q8HR [facility] Last Admin: 03/16/21 06:06 Dose: 80 mg Documented by: Mirtazapine (Mirtazapine 15 Mg Tab) 30 mg PO QHS PRN PRN Reason: Insomnia Potassium Chloride (Potassium Chloride Er 20 Meq Tab) 20 meq PO QDAY [facility] Last Admin: 03/16/21 10:02 Dose: 20 meq Documented by: Review of Systems Cardiovascular: no chest pain, no palpitations, no edema Respiratory: shortness of breath Physical Examination Vital Signs Pulse Resp 104 H 26 H 03/15/21 13:30 03/15/21 13:30 General appearance: no acute distress HEENT: Positive: PERRL Neck: Positive: trachea midline Cardiac: Positive: Reg Rate and Rhythm Lungs: Positive: Decreased Breath Sounds Neuro: Positive: Grossly Intact Extremities: Absent: edema Results 03/15/21 14:07 03/15/21 Unknown Cardiac Enzymes 03/15/21 Range/Units 14:07 AST TNR CBC 03/15/21 Range/Units 14:07 WBC 5.9 (4.5-11.0) K/mm3 RBC 3.54 L (3.65-5.03) M/mm3 Hgb 10.0 L (10.1-14.3) gm/dl Hct 31.2 (30.3-42.9) % Plt Count 245 (140-440) K/mm3 Lymph # (Auto) 1.2 (1.2-5.4) K/mm3 [place] # (Auto) 0.4 (0.0-0.8) K/mm3 Eos # (Auto) 0.3 (0.0-0.4) K/mm3 Baso # (Auto) 0.1 (0.0-0.1) K/mm3 Comprehensive Metabolic Panel 03/15/21 03/15/21 03/15/21 Range/Units 14:07 16:26 Unknown Sodium TNR 145 Potassium TNR 4.8 4.8 Chloride TNR 109.2 H Carbon Dioxide TNR 21 L BUN TNR 48 H Creatinine TNR 3.9 H Glucose TNR 69 Calcium TNR 8.2 L AST TNR ALT TNR Alkaline Phosphatase TNR Total Protein TNR Albumin TNR Assessment and Plan COPD exacerbation Chronic renal failure Hypertension Concern for pulmonary embolisim with recent abnormal V/Q scan on Eliquis RBBB, chronic Presence of DC PPM s/t SSS Conservative cardiac management.
--- NOTE | 2021-03-16 11:33 | Consultation ---
History of Present Illness - Reason for Consult Consult date: 03/16/21 acute renal failure, chronic renal failure - History of Present Illness The patient is an 80 YO female who is well known to our service with history significant for HTN, Diastolic CHF, COPD, chronic hypoxic respiratory failure on home O2, SSS s/p PPM, Anemia and CKD stage 4 who presented to [facility] ED 03/15 with c/o worsening shortness of breath. She was hospitalized during this past week for exacerbation of COPD, but returns now with increased shortness of breath, atypical chest pain, and worsening renal function. Patient has nonproductive cough and orthopnea. No h/o fever, chills, chest pain or recent exposure to co ronavirus. CXR showed coarse interstitial markings. Labs significant for Creat 3.9, BUN 48 and K 4.8. Nephrology was consulted for further evaluation of NELIDA. Past History Past Medical History: COPD, hypertension, renal failure, other (SSS) Past Surgical History: Other (PPM) Medications and Allergies Allergies Allergy/AdvReac Type Severity Reaction Status Date / Time aspirin Allergy Hives Verified 03/15/21 13:33 Penicillins Allergy Hives Verified 03/15/21 13:33 Sulfa (Sulfonamide Allergy Hives Verified 03/15/21 13:33 Antibiotics) Home Medications Medication Instructions Recorded Confirmed Last Taken Type ALBUTEROL Inhaler(NF) [VENTOLIN 2 puff IH Q4H PRN #1 inha 11/01/18 03/16/21 08/07/19 Rx Inhaler(NF)] Famotidine [Pepcid] 20 mg PO DAILY #30 tablet 11/01/18 03/16/21 08/07/19 Rx Mirtazapine [Remeron 30mg TAB] 30 mg PO QHS PRN #30 tablet 11/01/18 03/16/21 08/07/19 Rx Apixaban [Eliquis starter pack] 5 mg PO . DIR #60 tab 03/12/21 03/16/21 Unknown Rx Budesonide/Formoterol Fumarate 2 puff IH DAILY #1 hfa.aer.ad 03/12/21 03/16/21 Unknown Rx [Symbicort 160-4.5 Mcg Inhaler] Ipratropium/Albuterol Sulfate 1 ampul IH QIDRT #120 ampul.neb 03/12/21 03/16/21 Unknown Rx [DUONEB *Not for PRN Use*] Prednisone [predniSONE 10 mg 10 mg PO .TAPER #1 tab.ds.pk 03/12/21 03/16/21 Unknown Rx (6-Day Pack, 21 Tabs)] Prednisone [predniSONE 10 mg 10 mg PO .TAPER #1 tab.ds.pk 03/12/21 03/16/21 Unknown Rx (6-Day Pack, 21 Tabs)] Active Meds: Active Medications Albuterol (Albuterol 2.5 Mg/3 Ml Nebu) 2.5 mg IH Q4HRT PRN PRN Reason: Shortness Of Breath Albuterol/Ipratropium (Ipratropium/Albuterol Sulfate 3 Ml Ampul.Neb) 1 ampul IH QIDRT [facility] Last Admin: 03/16/21 09:23 Dose: 1 ampul Documented by: Apixaban (Apixaban 5 Mg Tab) 10 mg PO Q12HR MANE Stop: 03/18/21 22:01 Last Admin: 03/16/21 10:01 Dose: 10 mg Documented by: Apixaban (Apixaban 5 Mg Tab) 5 mg PO Q12HR [facility] Arformoterol Tartrate (Arformoterol 15 Mcg/2 Ml Nebu) 15 mcg IH Q12HRT [facility] Last Admin: 03/16/21 09:23 Dose: 15 mcg Documented by: Budesonide (Budesonide 0.5 Mg/2 Ml Nebu) 0.5 mg IH Q12HRT [facility] Last Admin: 03/16/21 09:23 Dose: 0.5 mg Documented by: Famotidine (Famotidine 20 Mg Tab) 20 mg PO DAILY [facility] Last Admin: 03/16/21 10:01 Dose: 20 mg Documented by: Furosemide (Furosemide 40 Mg/4 Ml Inj) 40 mg IV QDAY [facility] Last Admin: 03/16/21 10:02 Dose: 40 mg Documented by: Levofloxacin/Dextrose (Levaquin 750mg/150ml) 750 mg in 150 mls @ 100 mls/hr IV Q48HR [facility]; Protocol Last Admin: 03/16/21 10:01 Dose: 100 mls/hr Documented by: Methylprednisolone Sodium Succinate (Methylprednisolone Sod Succinate 40 Mg/1 Ml Inj) 80 mg IV Q8HR [facility] Last Admin: 03/16/21 06:06 Dose: 80 mg Documented by: Mirtazapine (Mirtazapine 15 Mg Tab) 30 mg PO QHS PRN PRN Reason: Insomnia Exam - Vital Signs Vital signs: Vital Signs Pulse Resp 104 H 26 H 03/15/21 13:30 03/15/21 13:30 Results - Lab Results 03/15/21 14:07 03/17/21 04:41 Most recent lab results Calcium 8.2 mg/dL (8.4-10.2) L 03/15/21 Unknown Assessment and Plan 1. Acute kidney injury: Vasomotor NELIDA superimposed on CKD stage 4. Patient with known h/o stage 4 CKD and followed by our service. Urine studies and Renal US ordered. Monitor renal function. Avoid nephrotoxic agents. Meds dosage based on GFR. 2. FEN: Monitor lytes and volume status. 3. Atypical chest pain: Followedby Cards. 4. COPD exacerbation. On Steroids, Pulmicort and Duoneb. Followed by Pulmonary. Monitor. 5. Chronic respiratory failure: NC O2. 6. Chronic Anemia: POA. Subjective: Patient was not examined today. However the examination findings from other providers noted. The current and previous medical records are reviewed in detail as are laboratory and imaging data reviewed when appropriate. Medications being given are also reviewed. In addition the case has been discussed with the attending hospitalist and the nurse when needed. New renal recommendations as above.
[2021-03-16 16:06] LABS: Bacteria,Urine 1+ /HPF (Negative); Bilirubin,Urine NEG (Negative); Blood,Urine NEG (Negative); Color,Urine Straw (Yellow); Hyaline Casts,Urine 1 /LPF; Mucus,Urine FEW /HPF; Protein,Urine <15 mg/dL mg/dL (Negative); Urobilinogen,Urine < 2.0 mg/dL (<2.0)
[2021-03-16 16:31] LABS: Creatinine,Urine 35.6 mg/dL (0.1-20.0)
[2021-03-16] MEDS: MIRTAZAPINE 15 MG TAB PO PRN (21:23)
[2021-03-16] MEDS: ACETAMINOPHEN 325 MG TAB PO PRN (23:07)
[2021-03-17] MEDS: methylPREDNISolone Sod Succinate 40 MG/1 ML INJ IV SCH ×3 (05:23→21:58)
[2021-03-17 06:45] LABS: Albumin 3.8 g/dL (3.9-5); Calcium 8.4 mg/dL (8.4-10.2)
--- NOTE | 2021-03-17 08:39 | Progress Note ---
Assessment and Plan Assessment and plan: --Acute respiratory failure with hypoxia Multifactorial Exacerbation of CHF and COPD and renal failure Treat the underlying cause Oxygen titrate O2 sats to more than 90% Antifailure medications, nebulizer treatments Evaluation for home oxygen at discharge --Acute exacerbation of COPD Duo nebs and IV Solu-Medrol and IV Levaquin Oxygen titrate O2 sats to more than 90% BiPAP as needed Follow pulmonary evaluation --Congestive heart failure unspecified EF last EF 50 to 55% [2019] Follow cardiology evaluation recommendations Antifailure medications --Acute on chronic kidney disease Worsening renal function .avoid nephrotoxins Nephrology following, check renal ultrasound -- Hypertension moderate control Continue current antihypertensives As needed medications --History of coronary artery disease Continue current cardiac medications. Follow cardiology recommendations -Possible PE on VQ scan[last admission] Continue Eliquis as before Unable to get CTA to confirm due to renal failure -- DVT prophylaxis Subcu heparin and SCDs Closely monitor the patient and adjust management as needed Ambulate as tolerated Plan of care reviewed with patient and his nurse 03/16/2021; patient feels slightly better on 2 to 3 L of nasal cannula oxygen Follow cardiology, nephrology and pulmonary evaluation recommendations Possible discharge in 1 to 2 days if stable 03/17/2021; patient symptoms slightly improved however still complains of shortness of breath Vital signs noted, worsening renal function continue current management Follow cleaning validation consultant recommendations History Interval history: I have seen and examined the patient at the bedside Patient's chart and medications reviewed Patient feels slightly better however continues to have shortness of breath Vital signs noted Hospitalist Physical - Constitutional Vitals: Temp Pulse Resp BP Pulse Ox 98.3 F 103 H 18 129/79 97 03/17/21 08:13 03/17/21 08:13 03/17/21 08:13 03/17/21 08:13 03/17/21 08:13 General appearance: Present: mild distress, well-nourished - Neck Neck: Present: supple, normal ROM - Respiratory Respiratory effort: normal Respiratory: bilateral: diminished, rhonchi, wheezing, negative: rales - Cardiovascular Rhythm: regular Heart Sounds: Present: S1 & S2 - Extremities Extremities: no ischemia, No edema - Integumentary Integumentary: Present: clear, warm - Psychiatric Psychiatric: appropriate mood/affect, depressed - Neurologic Neurologic: moves all extremities HEART Score - HEART Score Risk factors: > 3 risk factors or hx of atherosclerotic disease Troponin: Troponin T 0.029 ng/mL (0.00-0.029) 03/15/21 14:35 Troponin: < normal limit - Critical Actions Critical Actions: 4-6 pts:12-16.6% risk of adverse cardiac event. Should be admitted Results - Labs CBC & Chem 7: 03/15/21 14:07 03/17/21 04:41 Labs: Laboratory Last Values WBC 5.9 K/mm3 (4.5-11.0) 03/15/21 14:07 RBC 3.54 M/mm3 (3.65-5.03) L 03/15/21 14:07 Hgb 10.0 gm/dl (10.1-14.3) L 03/15/21 14:07 Hct 31.2 % (30.3-42.9) 03/15/21 14:07 MCV 88 fl (79-97) 03/15/21 14:07 MCH 28 pg (28-32) 03/15/21 14:07 MCHC 32 % (30-34) 03/15/21 14:07 RDW 16.4 % (13.2-15.2) H 03/15/21 14:07 Plt Count 245 K/mm3 (140-440) 03/15/21 14:07 Lymph % (Auto) 20.4 % (13.4-35.0) 03/15/21 14:07 Loving % (Auto) 6.0 % (0.0-7.3) 03/15/21 14:07 Eos % (Auto) 5.6 % (0.0-4.3) H 03/15/21 14:07 Baso % (Auto) 0.9 % (0.0-1.8) 03/15/21 14:07 Lymph # (Auto) 1.2 K/mm3 (1.2-5.4) 03/15/21 14:07 Loving # (Auto) 0.4 K/mm3 (0.0-0.8) 03/15/21 14:07 Eos # (Auto) 0.3 K/mm3 (0.0-0.4) 03/15/21 14:07 Baso # (Auto) 0.1 K/mm3 (0.0-0.1) 03/15/21 14:07 Seg Neutrophils % 67.1 % (40.0-70.0) 03/15/21 14:07 Seg Neutrophils # 4.0 K/mm3 (1.8-7.7) 03/15/21 14:07 Sodium 146 mmol/L (137-145) H 03/17/21 04:41 Potassium 4.4 mmol/L (3.6-5.0) 03/17/21 04:41 Chloride 106.6 mmol/L (98-107) 03/17/21 04:41 Carbon Dioxide 26 mmol/L (22-30) 03/17/21 04:41 Anion Gap 18 mmol/L 03/17/21 04:41 BUN 71 mg/dL (7-17) H 03/17/21 04:41 Creatinine 4.1 mg/dL (0.6-1.2) H 03/17/21 04:41 Estimated GFR 13 ml/min 03/17/21 04:41 BUN/Creatinine Ratio 17 % 03/17/21 04:41 Glucose 156 mg/dL (65-100) H 03/17/21 04:41 Lactic Acid 0.90 mmol/L (0.7-2.0) 03/15/21 16:26 Calcium 8.4 mg/dL (8.4-10.2) 03/17/21 04:41 Magnesium 2.00 mg/dL (1.7-2.3) 03/17/21 04:41 Total Bilirubin 0.20 mg/dL (0.1-1.2) 03/17/21 04:41 AST 8 units/L (5-40) 03/17/21 04:41 ALT 7 units/L (7-56) 03/17/21 04:41 Alkaline Phosphatase 58 units/L (35-129) 03/17/21 04:41 Troponin T 0.029 ng/mL (0.00-0.029) 03/15/21 14:35 NT-Pro-B Natriuret Pep 1245 pg/mL (0-900) H 03/15/21 14:07 Total Protein 6.1 g/dL (6.3-8.2) L 03/17/21 04:41 Albumin 3.8 g/dL (3.9-5) L 03/17/21 04:41 Albumin/Globulin Ratio 1.7 % 03/17/21 04:41 Urine Color Straw (Yellow) 03/16/21 15:30 Urine Turbidity Clear (Clear) 03/16/21 15:30 Urine pH 5.0 (5.0-7.0) 03/16/21 15:30 Ur Specific Wayne 1.008 (1.003-1.030) 03/16/21 15:30 Urine Protein <15 mg/dl mg/dL (Negative) 03/16/21 15:30 Urine Glucose (UA) Neg mg/dL (Negative) 03/16/21 15:30 Urine Ketones Neg mg/dL (Negative) 03/16/21 15:30 Urine Blood Neg (Negative) 03/16/21 15:30 Urine Nitrite Neg (Negative) 03/16/21 15:30 Urine Bilirubin Neg (Negative) 03/16/21 15:30 Urine Urobilinogen < 2.0 mg/dL (<2.0) 03/16/21 15:30 Ur Leukocyte Esterase Neg (Negative) 03/16/21 15:30 Urine WBC (Auto) 2.0 /HPF (0.0-6.0) 03/16/21 15:30 Urine RBC (Auto) 2.0 /HPF (0.0-6.0) 03/16/21 15:30 U Epithel Cells (Auto) 2.0 /HPF (0-13.0) 03/16/21 15:30 Urine Bacteria (Auto) 1+ /HPF (Negative) 03/16/21 15:30 Hyaline Casts 1 /LPF 03/16/21 15:30 Urine Mucus Few /HPF 03/16/21 15:30 Urine Creatinine 35.6 mg/dL (0.1-20.0) H 03/16/21 15:30 Urine Sodium 102 mmol/L 03/16/21 15:30 Microbiology: Microbiology 03/15/21 14:07 Peripheral/Venous Blood Culture - Preliminary NO GROWTH AFTER 24 HOURS 03/15/21 14:07 Peripheral/Venous Blood Culture - Preliminary NO GROWTH AFTER 24 HOURS Herrera/IV: Voiding Method Bedside Commode Active Medications - Current Medications Current Medications: Generic Name Dose Route Start Last Admin Trade Name Freq PRN Reason Stop Dose Admin Acetaminophen 650 mg 03/16/21 21:47 03/16/21 23:07 Acetaminophen 325 Mg Tab PO 650 mg Q6H PRN Administration Pain, Mild (1-3) Albuterol 2.5 mg 03/15/21 23:26 Albuterol 2.5 Mg/3 Ml Nebu IH Q4HRT PRN Shortness Of Breath Albuterol/Ipratropium 1 ampul 03/17/21 08:00 Ipratropium/Albuterol Sulfate 3 Ml Ampul.Neb IH TIDRT MANE Apixaban 10 mg 03/16/21 10:00 03/16/21 21:24 Apixaban 5 Mg Tab PO 03/18/21 22:01 10 mg Q12HR MANE Administration Apixaban 5 mg 03/19/21 10:00 Apixaban 5 Mg Tab PO Q12HR MANE Arformoterol Tartrate 15 mcg 03/16/21 08:00 03/16/21 20:26 Arformoterol 15 Mcg/2 Ml Nebu IH 15 mcg Q12HRT MANE Administration Budesonide 0.5 mg 03/16/21 08:00 03/16/21 20:26 Budesonide 0.5 Mg/2 Ml Nebu IH 0.5 mg Q12HRT MANE Administration Famotidine 20 mg 03/16/21 10:00 03/16/21 10:01 Famotidine 20 Mg Tab PO 20 mg DAILY MANE Administration Sodium Chloride 1,000 mls @ 50 mls/hr 03/16/21 12:00 Nacl 0.45% 1000 Ml IV DIRECT MANE Levofloxacin/Dextrose 500 mg in 100 mls @ 100 mls/hr 03/18/21 12:00 Levaquin 500mg/100ml IV 03/24/21 12:59 Q48H MANE Protocol Methylprednisolone Sodium Succinate 80 mg 03/15/21 23:45 03/17/21 05:23 Methylprednisolone Sod Succinate 40 Mg/1 Ml Inj IV 80 mg Q8HR MANE Administration Mirtazapine 30 mg 03/15/21 23:20 03/16/21 21:23 Mirtazapine 15 Mg Tab PO 30 mg QHS PRN Administration Insomnia Nutrition/Malnutrition Assess - Dietary Evaluation Nutrition/Malnutrition Findings: Nutrition Notes Start: 03/16/21 10:27 Freq: Status: Active Protocol: Document 03/16/21 10:27 AT (Rec: 03/16/21 10:28 AT [id number]) Co-Sign 03/16/21 10:27 MK Nutrition Notes Need for Assessment generated 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 Screened pt for malnutrition at last visit (last week), but did not find malnutrition. Pt presents with no weight loss nor physical signs of malnutrition. Pt reports admission due to inability to complete ADLs. Pt reports normal appetite and is eating 100% of hospital meals. Pt denies the need for ONS. Nutrition Intervention Revisit per MD consult or patient Sign Off request:
--- NOTE | 2021-03-17 09:19 | Consultation ---
History of Present Illness Consult date: 03/16/21 Reason for consult: COPD, hypoxemia History of present illness: 80-year-old female with history of COPD, congestive heart failure, coronary artery disease recently admitted for pneumonia and discharged on the comes back for increasing shortness of breath. Patient also has a cough which is nonproductive. Patient was diagnosed with pneumonia and COPD exacerbation. No fever or chills. Patient continues to be having increasing shortness of breath. Orthopnea present. No chest pain. No fever or chills. No recent exposure to coronavirus. Patient has class IV NYHA symptoms. Past History Past Medical History: COPD, hypertension, renal failure, other (SSS) Past Surgical History: Other (PPM) Medications and Allergies Allergies Allergy/AdvReac Type Severity Reaction Status Date / Time aspirin Allergy Hives Verified 03/15/21 13:33 Penicillins Allergy Hives Verified 03/15/21 13:33 Sulfa (Sulfonamide Allergy Hives Verified 03/15/21 13:33 Antibiotics) Home Medications Medication Instructions Recorded Confirmed Last Taken Type ALBUTEROL Inhaler(NF) [VENTOLIN 2 puff IH Q4H PRN #1 inha 11/01/18 03/16/21 08/07/19 Rx Inhaler(NF)] Famotidine [Pepcid] 20 mg PO DAILY #30 tablet 11/01/18 03/16/21 08/07/19 Rx Mirtazapine [Remeron 30mg TAB] 30 mg PO QHS PRN #30 tablet 11/01/18 03/16/21 08/07/19 Rx Apixaban [Eliquis starter pack] 5 mg PO . DIR #60 tab 03/12/21 03/16/21 Unknown Rx Budesonide/Formoterol Fumarate 2 puff IH DAILY #1 hfa.aer.ad 03/12/21 03/16/21 Unknown Rx [Symbicort 160-4.5 Mcg Inhaler] Ipratropium/Albuterol Sulfate 1 ampul IH QIDRT #120 ampul.neb 03/12/21 03/16/21 Unknown Rx [DUONEB *Not for PRN Use*] Prednisone [predniSONE 10 mg 10 mg PO .TAPER #1 tab.ds.pk 03/12/21 03/16/21 Unknown Rx (6-Day Pack, 21 Tabs)] Prednisone [predniSONE 10 mg 10 mg PO .TAPER #1 tab.ds.pk 03/12/21 03/16/21 Unknown Rx (6-Day Pack, 21 Tabs)] Active Meds: Active Medications Albuterol (Albuterol 2.5 Mg/3 Ml Nebu) 2.5 mg IH Q4HRT PRN PRN Reason: Shortness Of Breath Albuterol/Ipratropium (Ipratropium/Albuterol Sulfate 3 Ml Ampul.Neb) 1 ampul IH QIDRT [facility] Last Admin: 03/16/21 09:23 Dose: 1 ampul Documented by: Apixaban (Apixaban 5 Mg Tab) 10 mg PO Q12HR MANE Stop: 03/18/21 22:01 Last Admin: 03/16/21 10:01 Dose: 10 mg Documented by: Apixaban (Apixaban 5 Mg Tab) 5 mg PO Q12HR [facility] Arformoterol Tartrate (Arformoterol 15 Mcg/2 Ml Nebu) 15 mcg IH Q12HRT [facility] Last Admin: 03/16/21 09:23 Dose: 15 mcg Documented by: Budesonide (Budesonide 0.5 Mg/2 Ml Nebu) 0.5 mg IH Q12HRT [facility] Last Admin: 03/16/21 09:23 Dose: 0.5 mg Documented by: Famotidine (Famotidine 20 Mg Tab) 20 mg PO DAILY [facility] Last Admin: 03/16/21 10:01 Dose: 20 mg Documented by: Sodium Chloride (Nacl 0.45% 1000 Ml) 1,000 mls @ 50 mls/hr IV DIRECT MANE Levofloxacin/Dextrose (Levaquin 500mg/100ml) 500 mg in 100 mls @ 100 mls/hr IV Q48H [facility]; Protocol Stop: 03/24/21 12:59 Methylprednisolone Sodium Succinate (Methylprednisolone Sod Succinate 40 Mg/1 Ml Inj) 80 mg IV Q8HR [facility] Last Admin: 03/16/21 06:06 Dose: 80 mg Documented by: Mirtazapine (Mirtazapine 15 Mg Tab) 30 mg PO QHS PRN PRN Reason: Insomnia Physical Examination Vital signs: Vital Signs Pulse Resp 104 H 26 H 03/15/21 13:30 03/15/21 13:30 Results - Laboratory Findings CBC and BMP: 03/15/21 14:07 03/17/21 04:41 Abnormal lab findings: Abnormal Labs 03/15/21 03/15/21 03/15/21 14:07 14:07 Unknown RBC 3.54 L Hgb 10.0 L RDW 16.4 H Eos % (Auto) 5.6 H Chloride 109.2 H Carbon Dioxide 21 L BUN 48 H Creatinine 3.9 H Calcium 8.2 L NT-Pro-B Natriuret Pep 1245 H Assessment and Plan 80 y/o female with presumptive COPD exacerbation 1. Consider V/Q scan to look for PE as she is in renal failure and not able to obtain CTA 2. Continue current dose of steroids 3. Continue pulmicort and brovana 4. Would stop abx therapy 5. Will continue to follow.
[2021-03-17] MEDS: BUDESONIDE 0.5 MG/2 ML NEBU IH SCH ×2 (09:25→20:24)
[2021-03-17] MEDS: ARFORMOTEROL 15 MCG/2 ML NEBU IH SCH ×2 (09:25→20:24)
--- NOTE | 2021-03-17 09:27 | Event Note ---
Date: 03/17/21 IV fluids was ordered yesterday noon, but never started. Spoke with the nurse.
[2021-03-17] MEDS: IPRATROPIUM/ALBUTEROL SULFATE 3 ML AMPUL.NEB IH SCH ×3 (09:29→20:24)
--- NOTE | 2021-03-17 09:36 | Progress Note ---
Assessment and Plan 1. Acute kidney injury: Vasomotor NELIDA superimposed on CKD stage 4. Patient with known h/o stage 4 CKD and followed by our service. UA bland. Renal US negative for hydro. Likley ATN. IV fluids ordered yesterday, yet to be started. Monitor renal function. Avoid nephrotoxic agents. Meds dosage based on GFR. 2. FEN: Monitor lytes and volume status. 3. Atypical chest pain: Followed by Cards. 4. COPD exacerbation. On Steroids, Pulmicort and Duoneb. Followed by Pulmonary. Monitor. 5. Chronic respiratory failure: NC O2. 6. Chronic Anemia: POA. Subjective: Patient was not examined today. However the examination findings from other providers noted. The current and previous medical records are reviewed in detail as are laboratory and imaging data reviewed when appropriate. Medications being given are also reviewed. In addition the case has been discussed with the attending hospitalist and the nurse when needed. New renal recommendations as above. Subjective Date of service: 03/17/21 Objective - Vital Signs Vital signs: Vital Signs - 12hr 03/16/21 03/16/21 03/17/21 21:58 22:47 04:00 Temperature 98.8 F Pulse Rate 109 H 104 H Pulse Rate [ Bilateral Throughout] Respiratory 20 18 Rate Respiratory Rate [Bilateral Throughout] Blood Pressure 106/58 O2 Sat by Pulse 96 Oximetry 03/17/21 03/17/21 03/17/21 04:07 08:00 08:13 Temperature 98.2 F 98.3 F Pulse Rate 102 H 103 H Pulse Rate [ 100 H Bilateral Throughout] Respiratory 18 18 Rate Respiratory 17 Rate [Bilateral Throughout] Blood Pressure 136/81 129/79 O2 Sat by Pulse 98 97 Oximetry 03/17/21 09:28 Temperature Pulse Rate Pulse Rate [ Bilateral Throughout] Respiratory Rate Respiratory Rate [Bilateral Throughout] Blood Pressure O2 Sat by Pulse 98 Oximetry - Lab 03/15/21 14:07 03/17/21 04:41 Most recent lab results Calcium 8.4 mg/dL (8.4-10.2) 03/17/21 04:41 Magnesium 2.00 mg/dL (1.7-2.3) 03/17/21 04:41 Urine Creatinine 35.6 mg/dL (0.1-20.0) H 03/16/21 15:30 Urine Sodium 102 mmol/L 03/16/21 15:30 Medications & Allergies - Medications Allergies/Adverse Reactions: Allergies aspirin Allergy (Verified 03/15/21 13:33) Hives Penicillins Allergy (Verified 03/15/21 13:33) Hives Sulfa (Sulfonamide Antibiotics) Allergy (Verified 03/15/21 13:33) Hives Home Medications: Home Medications Medication Instructions Recorded Confirmed Last Taken Type ALBUTEROL Inhaler(NF) [VENTOLIN 2 puff IH Q4H PRN #1 inha 11/01/18 03/16/21 08/07/19 Rx Inhaler(NF)] Famotidine [Pepcid] 20 mg PO DAILY #30 tablet 11/01/18 03/16/21 08/07/19 Rx Mirtazapine [Remeron 30mg TAB] 30 mg PO QHS PRN #30 tablet 11/01/18 03/16/21 08/07/19 Rx Apixaban [Eliquis starter pack] 5 mg PO . DIR #60 tab 03/12/21 03/16/21 Unknown Rx Budesonide/Formoterol Fumarate 2 puff IH DAILY #1 hfa.aer.ad 03/12/21 03/16/21 Unknown Rx [Symbicort 160-4.5 Mcg Inhaler] Ipratropium/Albuterol Sulfate 1 ampul IH QIDRT #120 ampul.neb 03/12/21 03/16/21 Unknown Rx [DUONEB *Not for PRN Use*] Prednisone [predniSONE 10 mg 10 mg PO .TAPER #1 tab.ds.pk 03/12/21 03/16/21 Unknown Rx (6-Day Pack, 21 Tabs)] Prednisone [predniSONE 10 mg 10 mg PO .TAPER #1 tab.ds.pk 03/12/21 03/16/21 Unknown Rx (6-Day Pack, 21 Tabs)] Active Medications: Generic Name Dose Route Start Last Admin Trade Name Freq PRN Reason Stop Dose Admin Acetaminophen 650 mg 03/16/21 21:47 03/16/21 23:07 Acetaminophen 325 Mg Tab PO 650 mg Q6H PRN Administration Pain, Mild (1-3) Albuterol 2.5 mg 03/15/21 23:26 Albuterol 2.5 Mg/3 Ml Nebu IH Q4HRT PRN Shortness Of Breath Albuterol/Ipratropium 1 ampul 03/17/21 08:00 03/17/21 09:29 Ipratropium/Albuterol Sulfate 3 Ml Ampul.Neb IH Not Given TIDRT MANE Apixaban 10 mg 03/16/21 10:00 03/16/21 21:24 Apixaban 5 Mg Tab PO 03/18/21 22:01 10 mg Q12HR MANE Administration Apixaban 5 mg 03/19/21 10:00 Apixaban 5 Mg Tab PO Q12HR MANE Arformoterol Tartrate 15 mcg 03/16/21 08:00 03/17/21 09:25 Arformoterol 15 Mcg/2 Ml Nebu IH 15 mcg Q12HRT MANE Administration Budesonide 0.5 mg 03/16/21 08:00 03/17/21 09:25 Budesonide 0.5 Mg/2 Ml Nebu IH 0.5 mg Q12HRT MANE Administration Famotidine 20 mg 03/16/21 10:00 03/16/21 10:01 Famotidine 20 Mg Tab PO 20 mg DAILY MANE Administration Sodium Chloride 1,000 mls @ 50 mls/hr 03/16/21 12:00 Nacl 0.45% 1000 Ml IV DIRECT MANE Levofloxacin/Dextrose 500 mg in 100 mls @ 100 mls/hr 03/18/21 12:00 Levaquin 500mg/100ml IV 03/24/21 12:59 Q48H [facility] Protocol Methylprednisolone Sodium Succinate 80 mg 03/15/21 23:45 03/17/21 05:23 Methylprednisolone Sod Succinate 40 Mg/1 Ml Inj IV 80 mg Q8HR MANE Administration Mirtazapine 30 mg 03/15/21 23:20 03/16/21 21:23 Mirtazapine 15 Mg Tab PO 30 mg QHS PRN Administration Insomnia
[2021-03-17] MEDS: SODIUM CHLORIDE 0.45% 1000 ML 1,000 ML IV SCH (10:52)
[2021-03-17] MEDS: APIXABAN 5 MG TAB PO SCH ×2 (10:53→21:58)
[2021-03-17] MEDS: FAMOTIDINE 20 MG TAB PO SCH (10:53)
--- NOTE | 2021-03-17 11:00 | Progress Note ---
Assessment and Plan COPD exacerbation Chronic renal failure Hypertension Concern for pulmonary embolisim with recent abnormal V/Q scan on Eliquis RBBB, chronic Presence of DC PPM s/t SSS Conservative cardiac management. Subjective Date of service: 03/17/21 Interval history: Patient reports her breathing is better. Objective Vital Signs Temp Pulse Pulse Resp Resp BP Pulse Ox 03/17/21 09:28 98 03/17/21 08:13 98.3 F 103 H 18 129/79 97 03/17/21 08:00 100 H 17 03/17/21 04:07 98.2 F 102 H 18 136/81 98 03/17/21 04:00 104 H 03/16/21 22:47 98.8 F 109 H 18 106/58 96 03/16/21 21:58 20 03/16/21 20:26 102 H 20 03/16/21 20:00 99 H 03/16/21 19:37 98.1 F 118 H 18 136/73 97 03/16/21 15:40 98.3 F 99 H 20 117/67 98 03/16/21 14:48 98 H 20 03/16/21 13:06 88 03/16/21 12:00 96 H - Physical Examination General: No Apparent Distress HEENT: Positive: PERRL Neck: Positive: trachea midline Cardiac: Positive: Reg Rate and Rhythm Lungs: Positive: Decreased Breath Sounds Neuro: Positive: Grossly Intact Extremities: Absent: edema - Labs and Meds Cardiac Enzymes 03/17/21 Range/Units 04:41 AST 8 (5-40) units/L Comprehensive Metabolic Panel 03/17/21 Range/Units 04:41 Sodium 146 H (137-145) mmol/L Potassium 4.4 (3.6-5.0) mmol/L Chloride 106.6 (98-107) mmol/L Carbon Dioxide 26 (22-30) mmol/L BUN 71 H (7-17) mg/dL Creatinine 4.1 H (0.6-1.2) mg/dL Glucose 156 H (65-100) mg/dL Calcium 8.4 (8.4-10.2) mg/dL AST 8 (5-40) units/L ALT 7 (7-56) units/L Alkaline Phosphatase 58 (35-129) units/L Total Protein 6.1 L (6.3-8.2) g/dL Albumin 3.8 L (3.9-5) g/dL
--- NOTE | 2021-03-17 12:48 | Progress Note ---
Assessment and Plan 80 y/o female with presumptive COPD exacerbation 02/27/21: Given recurrent bouts of exacerbation with relative clear CXR, suggest ruling out thromboembolic disease with V/Q as patient is in renal failure. Can likely start to taper steroids tomorrow. Suggest dropping to 40q8. Continue pulmicort and brovana therapy. I am not sure if the patient has home O2 or not, if not, patient will need walk test prior to discharge to assess oxygen therapy needs, if any. Will continue to follow along with the patient. If there are questions about my plan or if my note is not clear please feel free to call my office [phone] and will get back to you as soon as possible. 1. Consider V/Q scan to look for PE as she is in renal failure and not able to obtain CTA 2. Continue current dose of steroids 3. Continue pulmicort and brovana 4. Would stop abx therapy 5. Will continue to follow. Subjective Date of service: 03/17/21 Interval history: Note from yesterday present, however was in "pending mode" perhaps not able to be seen by primary team and utilization review. This am on 2 liters. Pulm status appears to be stable and close to baseline. Renal function is worse. Objective Vital Signs - 12hr 03/17/21 03/17/21 03/17/21 04:00 04:07 08:00 Temperature 98.2 F Pulse Rate 104 H 102 H Pulse Rate [ 100 H Bilateral Throughout] Respiratory 18 Rate Respiratory 17 Rate [Bilateral Throughout] Blood Pressure 136/81 O2 Sat by Pulse 98 Oximetry 03/17/21 03/17/21 08:13 09:28 Temperature 98.3 F Pulse Rate 103 H Pulse Rate [ Bilateral Throughout] Respiratory 18 Rate Respiratory Rate [Bilateral Throughout] Blood Pressure 129/79 O2 Sat by Pulse 97 98 Oximetry CBC and BMP: 03/15/21 14:07 03/17/21 04:41 Abnormal lab findings: Abnormal Labs 03/15/21 03/15/21 03/15/21 14:07 14:07 Unknown RBC 3.54 L Hgb 10.0 L RDW 16.4 H Eos % (Auto) 5.6 H Sodium Chloride 109.2 H Carbon Dioxide 21 L BUN 48 H Creatinine 3.9 H Glucose Calcium 8.2 L NT-Pro-B Natriuret Pep 1245 H Total Protein Albumin Urine Creatinine 03/16/21 03/17/21 15:30 04:41 RBC Hgb RDW Eos % (Auto) Sodium 146 H Chloride Carbon Dioxide BUN 71 H Creatinine 4.1 H Glucose 156 H Calcium NT-Pro-B Natriuret Pep Total Protein 6.1 L Albumin 3.8 L Urine Creatinine 35.6 H
--- NOTE | 2021-03-17 15:50 | Ultrasound Report ---
ULTRASOUND RENAL INDICATION / CLINICAL INFORMATION: Acute renal failure.. COMPARISON: None available. FINDINGS: RIGHT KIDNEY: Length = 9.8 cm. [normal > 9 cm] - Parenchymal Thickness = 1.2 cm. [normal > 1.5 cm] - Echogenicity: Normal. - Hydronephrosis: None. - Cyst or mass: No significant abnormality. - Stones: None seen. LEFT KIDNEY: Length = 8.9 cm. [normal > 9 cm] - Parenchymal Thickness = 1.3 cm. [normal > 1.5 cm] - Echogenicity: Normal. - Hydronephrosis: None. - Cyst or mass: No significant abnormality. - Stones: None seen. URINARY BLADDER: No significant abnormality. FREE FLUID: None. ADDITIONAL FINDINGS: None. IMPRESSION: No significant abnormality. Signer Name: Geovani Haywood Jr, MD Signed: 03/17/2021 3:46 PM Workstation Name: [id number]
[2021-03-17] MEDS: MIRTAZAPINE 15 MG TAB PO PRN (21:58)
[2021-03-17] MEDS: ACETAMINOPHEN 325 MG TAB PO PRN (21:58)
[2021-03-18] MEDS: methylPREDNISolone Sod Succinate 40 MG/1 ML INJ IV SCH ×3 (05:58→21:39)
[2021-03-18] MEDS: BUDESONIDE 0.5 MG/2 ML NEBU IH SCH ×2 (07:39→21:09)
[2021-03-18] MEDS: IPRATROPIUM/ALBUTEROL SULFATE 3 ML AMPUL.NEB IH SCH ×3 (07:40→21:14)
[2021-03-18] MEDS: ARFORMOTEROL 15 MCG/2 ML NEBU IH SCH ×2 (07:40→21:09)
--- NOTE | 2021-03-18 09:58 | Progress Note ---
Assessment and Plan 80 y/o female with presumptive COPD exacerbation 03/18/21: Will drop steroids to 40q8 starting today. Likely will need prolonged taper at discharge. Suggest the followin daily for 5 days, then 40 daily until she follows up with Jonathan in the office. Would give 20mg tabs and give her 60 pills. That should hold her until she can follow up as well as give her some left over to finish the taper. Continue pulmicort and brovana therapy. 03/17/21: Given recurrent bouts of exacerbation with relative clear CXR, suggest ruling out thromboembolic disease with V/Q as patient is in renal failure. Can likely start to taper steroids tomorrow. Suggest dropping to 40q8. Continue pulmicort and brovana therapy. I am not sure if the patient has home O2 or not, if not, patient will need walk test prior to discharge to assess oxygen therapy needs, if any. Will continue to follow along with the patient. If there are questions about my plan or if my note is not clear please feel free to call my office [phone] and will get back to you as soon as possible. 1. Consider V/Q scan to look for PE as she is in renal failure and not able to obtain CTA 2. Continue current dose of steroids 3. Continue pulmicort and brovana 4. Would stop abx therapy 5. Will continue to follow. Subjective Date of service: 03/18/21 Interval history: No acute events. Stable on 2 liters. Objective Vital Signs - 12hr 03/17/21 03/17/21 03/18/21 22:00 23:53 02:00 Temperature 98.3 F Pulse Rate 94 H 98 H Pulse Rate [ Bilateral Throughout] Respiratory 20 20 Rate Respiratory Rate [Bilateral Throughout] Blood Pressure 107/56 O2 Sat by Pulse 98 Oximetry 03/18/21 03/18/21 03/18/21 04:13 07:34 07:41 Temperature 97.5 F L 98.2 F Pulse Rate 89 100 H Pulse Rate [ 101 H Bilateral Throughout] Respiratory 16 20 Rate Respiratory 18 Rate [Bilateral Throughout] Blood Pressure 127/79 135/77 O2 Sat by Pulse 100 99 Oximetry 03/18/21 07:42 Temperature Pulse Rate Pulse Rate [ Bilateral Throughout] Respiratory Rate Respiratory Rate [Bilateral Throughout] Blood Pressure O2 Sat by Pulse 98 Oximetry CBC and BMP: 03/15/21 14:07 03/18/21 05:28 Abnormal lab findings: Abnormal Labs 03/15/21 03/15/21 03/15/21 14:07 14:07 Unknown RBC 3.54 L Hgb 10.0 L RDW 16.4 H Eos % (Auto) 5.6 H Sodium Chloride 109.2 H Carbon Dioxide 21 L BUN 48 H Creatinine 3.9 H Glucose Calcium 8.2 L NT-Pro-B Natriuret Pep 1245 H Total Protein Albumin Urine Creatinine 03/16/21 03/17/21 03/18/21 15:30 04:41 05:28 RBC Hgb RDW Eos % (Auto) Sodium 146 H Chloride 107.1 H Carbon Dioxide BUN 71 H 66 H Creatinine 4.1 H 4.1 H Glucose 156 H 148 H Calcium 8.0 L NT-Pro-B Natriuret Pep Total Protein 6.1 L Albumin 3.8 L Urine Creatinine 35.6 H
[2021-03-18] MEDS: APIXABAN 5 MG TAB PO SCH ×2 (10:02→21:39)
[2021-03-18] MEDS: FAMOTIDINE 20 MG TAB PO SCH (10:02)
--- NOTE | 2021-03-18 10:07 | Progress Note ---
Assessment and Plan 1. Acute kidney injury: Vasomotor NELIDA superimposed on CKD stage 4. Patient with known h/o stage 4 CKD and followed by our service. UA bland. Renal US negative for hydro. Likley ATN. Continue IV fluids Monitor renal function. Avoid nephrotoxic agents. Meds dosage based on GFR. 2. FEN: Monitor lytes and volume status. 3. Atypical chest pain: Followed by Cards. 4. COPD exacerbation. On Steroids, Pulmicort and Albuterol. Followed by Pulmonary. Monitor. 5. Chronic respiratory failure: NC O2. 6. Chronic Anemia: POA. Subjective: Patient was not examined today. However the examination findings from other providers noted. The current and previous medical records are reviewed in detail as are laboratory and imaging data reviewed when appropriate. Medications being given are also reviewed. In addition the case has been discussed with the attending hospitalist and the nurse when needed. New renal recommendations as above. Subjective Date of service: 03/18/21 Objective - Vital Signs Vital signs: Vital Signs - 12hr 03/17/21 03/18/21 03/18/21 23:53 02:00 04:13 Temperature 98.3 F 97.5 F L Pulse Rate 94 H 98 H 89 Pulse Rate [ Bilateral Throughout] Respiratory 20 16 Rate Respiratory Rate [Bilateral Throughout] Blood Pressure 107/56 127/79 O2 Sat by Pulse 98 100 Oximetry 03/18/21 03/18/21 03/18/21 07:34 07:41 07:42 Temperature 98.2 F Pulse Rate 100 H Pulse Rate [ 101 H Bilateral Throughout] Respiratory 20 Rate Respiratory 18 Rate [Bilateral Throughout] Blood Pressure 135/77 O2 Sat by Pulse 99 98 Oximetry - Lab 03/15/21 14:07 03/18/21 05:28 Most recent lab results Calcium 8.0 mg/dL (8.4-10.2) L 03/18/21 05:28 Magnesium 2.00 mg/dL (1.7-2.3) 03/17/21 04:41 Urine Creatinine 35.6 mg/dL (0.1-20.0) H 03/16/21 15:30 Urine Sodium 102 mmol/L 03/16/21 15:30 Medications & Allergies - Medications Allergies/Adverse Reactions: Allergies aspirin Allergy (Verified 03/15/21 13:33) Hives Penicillins Allergy (Verified 03/15/21 13:33) Hives Sulfa (Sulfonamide Antibiotics) Allergy (Verified 03/15/21 13:33) Hives Home Medications: Home Medications Medication Instructions Recorded Confirmed Last Taken Type ALBUTEROL Inhaler(NF) [VENTOLIN 2 puff IH Q4H PRN #1 inha 11/01/18 03/16/21 08/07/19 Rx Inhaler(NF)] Famotidine [Pepcid] 20 mg PO DAILY #30 tablet 11/01/18 03/16/21 08/07/19 Rx Mirtazapine [Remeron 30mg TAB] 30 mg PO QHS PRN #30 tablet 11/01/18 03/16/21 08/07/19 Rx Apixaban [Eliquis starter pack] 5 mg PO . DIR #60 tab 03/12/21 03/16/21 Unknown Rx Budesonide/Formoterol Fumarate 2 puff IH DAILY #1 hfa.aer.ad 03/12/21 03/16/21 Unknown Rx [Symbicort 160-4.5 Mcg Inhaler] Ipratropium/Albuterol Sulfate 1 ampul IH QIDRT #120 ampul.neb 03/12/21 03/16/21 Unknown Rx [DUONEB *Not for PRN Use*] Prednisone [predniSONE 10 mg 10 mg PO .TAPER #1 tab.ds.pk 03/12/21 03/16/21 Unknown Rx (6-Day Pack, 21 Tabs)] Prednisone [predniSONE 10 mg 10 mg PO .TAPER #1 tab.ds.pk 03/12/21 03/16/21 Unknown Rx (6-Day Pack, 21 Tabs)] Active Medications: Generic Name Dose Route Start Last Admin Trade Name Freq PRN Reason Stop Dose Admin Acetaminophen 650 mg 03/16/21 21:47 03/17/21 21:58 Acetaminophen 325 Mg Tab PO 650 mg Q6H PRN Administration Pain, Mild (1-3) Albuterol 2.5 mg 03/15/21 23:26 Albuterol 2.5 Mg/3 Ml Nebu IH Q4HRT PRN Shortness Of Breath Albuterol/Ipratropium 1 ampul 03/17/21 08:00 03/18/21 07:40 Ipratropium/Albuterol Sulfate 3 Ml Ampul.Neb IH 1 ampul TIDRT MANE Administration Apixaban 10 mg 03/16/21 10:00 03/18/21 10:02 Apixaban 5 Mg Tab PO 03/18/21 22:01 10 mg Q12HR MANE Administration Apixaban 5 mg 03/19/21 10:00 Apixaban 5 Mg Tab PO Q12HR MANE Arformoterol Tartrate 15 mcg 03/16/21 08:00 03/18/21 07:40 Arformoterol 15 Mcg/2 Ml Nebu IH 15 mcg Q12HRT MANE Administration Budesonide 0.5 mg 03/16/21 08:00 03/18/21 07:39 Budesonide 0.5 Mg/2 Ml Nebu IH 0.5 mg Q12HRT MANE Administration Famotidine 20 mg 03/16/21 10:00 03/18/21 10:02 Famotidine 20 Mg Tab PO 20 mg DAILY MANE Administration Sodium Chloride 1,000 mls @ 50 mls/hr 03/16/21 12:00 03/17/21 10:52 Nacl 0.45% 1000 Ml IV 50 mls/hr DIRECT MANE Administration Levofloxacin/Dextrose 500 mg in 100 mls @ 100 mls/hr 03/18/21 12:00 Levaquin 500mg/100ml IV 03/24/21 12:59 Q48H MANE Protocol Methylprednisolone Sodium Succinate 80 mg 03/15/21 23:45 03/18/21 05:58 Methylprednisolone Sod Succinate 40 Mg/1 Ml Inj IV 80 mg Q8HR MANE Administration Mirtazapine 30 mg 03/15/21 23:20 03/17/21 21:58 Mirtazapine 15 Mg Tab PO 30 mg QHS PRN Administration Insomnia
[2021-03-18] MEDS ORDERED: levoFLOXacin 500 MG TAB PO SCH (12:00)
--- NOTE | 2021-03-18 12:16 | Progress Note ---
Assessment and Plan Assessment and plan: --Acute on chronic respiratory failure with hypoxia Requiring supplemental oxygen multifactorial Exacerbation of CHF,COPD,renal failure and PE Treat the underlying cause Oxygen titrate O2 sats to more than 90% Antifailure medications, nebulizer treatments Patient already has home oxygen --Acute exacerbation of COPD Duo nebs and IV Solu-Medrol and IV Levaquin Oxygen titrate O2 sats to more than 90% BiPAP as needed, pulmonary following --PE [high probability on VQ scan today] VQ scan done today confirms high probability for PE continue Eliquis per protocol Oxygen titrate O2 sats to more than 90% --Congestive heart failure unspecified EF last EF 50 to 55% [2019] chronic diastolic Follow cardiology evaluation recommendations Antifailure medications --Acute on chronic kidney disease Worsening renal function .avoid nephrotoxins Nephrology following, check renal ultrasound Gentle hydration -- Hypertension moderate control Continue current antihypertensives As needed medications --History of coronary artery disease Continue current cardiac medications. Follow cardiology recommendations -- DVT prophylaxis Subcu heparin and SCDs --Full code status Ambulate as tolerated Closely monitor the patient and adjust management as needed Plan of care reviewed with patient and her nurse 03/16/2021; patient feels slightly better on 2 to 3 L of nasal cannula oxygen Follow cardiology, nephrology and pulmonary evaluation recommendations Possible discharge in 1 to 2 days if stable 03/17/2021; patient symptoms slightly improved however still complains of shortness of breath Vital signs noted, worsening renal function continue current management Follow business systems consultant recommendations 03/18/2021; VQ scan done today is high probability for PE patient is already started on Eliquis per protocol Worsening renal function, consultants recommendations noted History Interval history: I have seen and examined the patient at the bedside this morning Patient's chart and medications reviewed Patient feels slightly better, wants to go home Alert awake oriented x3 Vital signs reviewed Hospitalist Physical - Constitutional Vitals: Temp Pulse Resp BP Pulse Ox 98.2 F 110 H 20 135/77 98 03/18/21 07:34 03/18/21 10:00 03/18/21 10:00 03/18/21 07:34 03/18/21 07:42 General appearance: Present: no acute distress, well-nourished - EENT Eyes: Present: PERRL, EOM intact - Neck Neck: Present: supple, normal ROM - Respiratory Respiratory effort: normal Respiratory: bilateral: diminished, negative: rales, rhonchi, wheezing - Cardiovascular Rhythm: regular Heart Sounds: Present: S1 & S2 - Extremities Extremities: no ischemia, No edema - Abdominal General gastrointestinal: soft, non-tender, non-distended, normal bowel sounds - Integumentary Integumentary: Present: clear, warm - Psychiatric Psychiatric: appropriate mood/affect, cooperative - Neurologic Neurologic: CNII-XII intact, moves all extremities HEART Score - HEART Score Risk factors: > 3 risk factors or hx of atherosclerotic disease Troponin: Troponin T 0.029 ng/mL (0.00-0.029) 03/15/21 14:35 Troponin: < normal limit - Critical Actions Critical Actions: 4-6 pts:12-16.6% risk of adverse cardiac event. Should be admitted Results - Labs CBC & Chem 7: 03/15/21 14:07 03/18/21 05:28 Labs: Laboratory Last Values WBC 5.9 K/mm3 (4.5-11.0) 03/15/21 14:07 RBC 3.54 M/mm3 (3.65-5.03) L 03/15/21 14:07 Hgb 10.0 gm/dl (10.1-14.3) L 03/15/21 14:07 Hct 31.2 % (30.3-42.9) 03/15/21 14:07 MCV 88 fl (79-97) 03/15/21 14:07 MCH 28 pg (28-32) 03/15/21 14:07 MCHC 32 % (30-34) 03/15/21 14:07 RDW 16.4 % (13.2-15.2) H 03/15/21 14:07 Plt Count 245 K/mm3 (140-440) 03/15/21 14:07 Lymph % (Auto) 20.4 % (13.4-35.0) 03/15/21 14:07 [place] % (Auto) 6.0 % (0.0-7.3) 03/15/21 14:07 Eos % (Auto) 5.6 % (0.0-4.3) H 03/15/21 14:07 Baso % (Auto) 0.9 % (0.0-1.8) 03/15/21 14:07 Lymph # (Auto) 1.2 K/mm3 (1.2-5.4) 03/15/21 14:07 [place] # (Auto) 0.4 K/mm3 (0.0-0.8) 03/15/21 14:07 Eos # (Auto) 0.3 K/mm3 (0.0-0.4) 03/15/21 14:07 Baso # (Auto) 0.1 K/mm3 (0.0-0.1) 03/15/21 14:07 Seg Neutrophils % 67.1 % (40.0-70.0) 03/15/21 14:07 Seg Neutrophils # 4.0 K/mm3 (1.8-7.7) 03/15/21 14:07 Sodium 143 mmol/L (137-145) 03/18/21 05:28 Potassium 4.8 mmol/L (3.6-5.0) 03/18/21 05:28 Chloride 107.1 mmol/L (98-107) H 03/18/21 05:28 Carbon Dioxide 26 mmol/L (22-30) 03/18/21 05:28 Anion Gap 15 mmol/L 03/18/21 05:28 BUN 66 mg/dL (7-17) H 03/18/21 05:28 Creatinine 4.1 mg/dL (0.6-1.2) H 03/18/21 05:28 Estimated GFR 13 ml/min 03/18/21 05:28 BUN/Creatinine Ratio 16 % 03/18/21 05:28 Glucose 148 mg/dL (65-100) H 03/18/21 05:28 Lactic Acid 0.90 mmol/L (0.7-2.0) 03/15/21 16:26 Calcium 8.0 mg/dL (8.4-10.2) L 03/18/21 05:28 Magnesium 2.00 mg/dL (1.7-2.3) 03/17/21 04:41 Total Bilirubin 0.20 mg/dL (0.1-1.2) 03/17/21 04:41 AST 8 units/L (5-40) 03/17/21 04:41 ALT 7 units/L (7-56) 03/17/21 04:41 Alkaline Phosphatase 58 units/L (35-129) 03/17/21 04:41 Troponin T 0.029 ng/mL (0.00-0.029) 03/15/21 14:35 NT-Pro-B Natriuret Pep 1245 pg/mL (0-900) H 03/15/21 14:07 Total Protein 6.1 g/dL (6.3-8.2) L 03/17/21 04:41 Albumin 3.8 g/dL (3.9-5) L 03/17/21 04:41 Albumin/Globulin Ratio 1.7 % 03/17/21 04:41 Urine Color Straw (Yellow) 03/16/21 15:30 Urine Turbidity Clear (Clear) 03/16/21 15:30 Urine pH 5.0 (5.0-7.0) 03/16/21 15:30 Ur Specific [place] 1.008 (1.003-1.030) 03/16/21 15:30 Urine Protein <15 mg/dl mg/dL (Negative) 03/16/21 15:30 Urine Glucose (UA) Neg mg/dL (Negative) 03/16/21 15:30 Urine Ketones Neg mg/dL (Negative) 03/16/21 15:30 Urine Blood Neg (Negative) 03/16/21 15:30 Urine Nitrite Neg (Negative) 03/16/21 15:30 Urine Bilirubin Neg (Negative) 03/16/21 15:30 Urine Urobilinogen < 2.0 mg/dL (<2.0) 03/16/21 15:30 Ur Leukocyte Esterase Neg (Negative) 03/16/21 15:30 Urine WBC (Auto) 2.0 /HPF (0.0-6.0) 03/16/21 15:30 Urine RBC (Auto) 2.0 /HPF (0.0-6.0) 03/16/21 15:30 U Epithel Cells (Auto) 2.0 /HPF (0-13.0) 03/16/21 15:30 Urine Bacteria (Auto) 1+ /HPF (Negative) 03/16/21 15:30 Hyaline Casts 1 /LPF 03/16/21 15:30 Urine Mucus Few /HPF 03/16/21 15:30 Urine Creatinine 35.6 mg/dL (0.1-20.0) H 03/16/21 15:30 Urine Sodium 102 mmol/L 03/16/21 15:30 Microbiology: Microbiology 03/15/21 14:07 Peripheral/Venous Blood Culture - Preliminary NO GROWTH AFTER 48 HOURS 03/15/21 14:07 Peripheral/Venous Blood Culture - Preliminary NO GROWTH AFTER 48 HOURS Herrera/IV: Voiding Method Bedside Commode Active Medications - Current Medications Current Medications: Generic Name Dose Route Start Last Admin Trade Name Freq PRN Reason Stop Dose Admin Acetaminophen 650 mg 03/16/21 21:47 03/17/21 21:58 Acetaminophen 325 Mg Tab PO 650 mg Q6H PRN Administration Pain, Mild (1-3) Albuterol 2.5 mg 03/15/21 23:26 Albuterol 2.5 Mg/3 Ml Nebu IH Q4HRT PRN Shortness Of Breath Albuterol/Ipratropium 1 ampul 03/17/21 08:00 03/18/21 07:40 Ipratropium/Albuterol Sulfate 3 Ml Ampul.Neb IH 1 ampul TIDRT MANE Administration Apixaban 10 mg 03/16/21 10:00 03/18/21 10:02 Apixaban 5 Mg Tab PO 03/18/21 22:01 10 mg Q12HR MANE Administration Apixaban 5 mg 03/19/21 10:00 Apixaban 5 Mg Tab PO Q12HR MANE Arformoterol Tartrate 15 mcg 03/16/21 08:00 03/18/21 07:40 Arformoterol 15 Mcg/2 Ml Nebu IH 15 mcg Q12HRT MANE Administration Budesonide 0.5 mg 03/16/21 08:00 03/18/21 07:39 Budesonide 0.5 Mg/2 Ml Nebu IH 0.5 mg Q12HRT MANE Administration Famotidine 20 mg 03/16/21 10:00 03/18/21 10:02 Famotidine 20 Mg Tab PO 20 mg DAILY MANE Administration Sodium Chloride 1,000 mls @ 50 mls/hr 03/16/21 12:00 03/17/21 10:52 Nacl 0.45% 1000 Ml IV 50 mls/hr DIRECT MANE Administration Levofloxacin 500 mg 03/18/21 12:00 Levofloxacin 500 Mg Tab PO 03/24/21 12:01 Q48H MANE Protocol Methylprednisolone Sodium Succinate 80 mg 03/15/21 23:45 03/18/21 05:58 Methylprednisolone Sod Succinate 40 Mg/1 Ml Inj IV 80 mg Q8HR MANE Administration Mirtazapine 30 mg 03/15/21 23:20 03/17/21 21:58 Mirtazapine 15 Mg Tab PO 30 mg QHS PRN Administration Insomnia Nutrition/Malnutrition Assess - Dietary Evaluation Nutrition/Malnutrition Findings: Nutrition Notes Start: 03/16/21 10:27 Freq: Status: Active Protocol: Document 03/16/21 10:27 AT (Rec: 03/16/21 10:28 AT [id number]) Co-Sign 03/16/21 10:27 MK Nutrition Notes Need for Assessment 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 Screened pt for malnutrition at last visit (last week), but did not find malnutrition. Pt presents with no weight loss nor physical signs of malnutrition. Pt reports admission due to inability to complete ADLs. Pt reports normal appetite and is eating 100% of hospital meals. Pt denies the need for ONS. Nutrition Intervention Revisit per MD consult or patient Sign Off request:
--- NOTE | 2021-03-18 13:19 | Nuclear Medicine Report ---
NUCLEAR MEDICINE PERFUSION LUNG SCAN INDICATION / CLINICAL INFORMATION: Shortness of breath. TECHNIQUE: 5.2 mCi of Tc-99m MAA were given by IV. COMPARISON: Chest radiograph dated 03/15/2021. FINDINGS: PERFUSION: There are multiple moderate segmental defects in both lower lobes. ADDITIONAL FINDINGS: None. IMPRESSION: 1. High probability for pulmonary embolism. Signer Name: Devon Moreno MD Signed: 03/18/2021 1:14 PM Workstation Name: [id number]
--- NOTE | 2021-03-18 16:52 | Progress Note ---
Assessment and Plan - Patient Problems (1) Shortness of breath Current Visit: Yes Status: Acute Plan to address problem: Admitted with shortness of breath due to COPD exacerbation, continue current management, patient states that she feels much better today. Subjective Date of service: 03/18/21 Interval history: Patient appears comfortable, no cardiac complaints. She states that she feels great today, and wants to be discharged home. On tennis director, she has a mild sinus tachycardia at 106. Objective Vital Signs Temp Pulse Pulse Resp Resp BP Pulse Ox 03/18/21 10:00 110 H 20 03/18/21 07:42 98 03/18/21 07:41 101 H 18 03/18/21 07:34 98.2 F 100 H 20 135/77 99 03/18/21 04:13 97.5 F L 89 16 127/79 100 03/18/21 02:00 98 H 03/17/21 23:53 98.3 F 94 H 20 107/56 98 03/17/21 22:00 20 03/17/21 20:30 96 03/17/21 20:29 92 H 18 03/17/21 19:52 99.3 F 96 H 20 115/70 98 03/17/21 18:00 112 H 03/17/21 17:29 98.4 F 107 H 18 111/62 98 - Physical Examination General: No Apparent Distress HEENT: Positive: PERRL Neck: Positive: trachea midline Cardiac: Positive: Regular Rhythm Lungs: Positive: Decreased Breath Sounds Neuro: Positive: Grossly Intact Abdomen: Positive: Soft Skin: Positive: Clear Extremities: Absent: edema - Labs and Meds Comprehensive Metabolic Panel 03/18/21 Range/Units 05:28 Sodium 143 (137-145) mmol/L Potassium 4.8 (3.6-5.0) mmol/L Chloride 107.1 H (98-107) mmol/L Carbon Dioxide 26 (22-30) mmol/L BUN 66 H (7-17) mg/dL Creatinine 4.1 H (0.6-1.2) mg/dL Glucose 148 H (65-100) mg/dL Calcium 8.0 L (8.4-10.2) mg/dL - Imaging and Cardiology EKG: report reviewed (Sinus tachycardia no acute ST-T wave changes)
[2021-03-18] MEDS: SODIUM CHLORIDE 0.45% 1000 ML 1,000 ML IV SCH (18:10)
[2021-03-18] MEDS: ACETAMINOPHEN 325 MG TAB PO PRN (21:39)
[2021-03-18] MEDS: MIRTAZAPINE 15 MG TAB PO PRN (21:39)
[2021-03-19] MEDS: methylPREDNISolone Sod Succinate 40 MG/1 ML INJ IV SCH ×2 (05:29→13:34)
[2021-03-19] MEDS: IPRATROPIUM/ALBUTEROL SULFATE 3 ML AMPUL.NEB IH SCH ×2 (07:25→14:22)
[2021-03-19] MEDS: ARFORMOTEROL 15 MCG/2 ML NEBU IH SCH (07:25)
[2021-03-19] MEDS: BUDESONIDE 0.5 MG/2 ML NEBU IH SCH (07:25)
[2021-03-19] MEDS: FAMOTIDINE 20 MG TAB PO SCH (09:16)
[2021-03-19] MEDS ORDERED: APIXABAN 5 MG TAB PO SCH (10:00)
--- NOTE | 2021-03-19 11:58 | Progress Note ---
Assessment and Plan Assessment and plan: --Acute on chronic respiratory failure with hypoxia Requiring supplemental oxygen multifactorial Exacerbation of CHF,COPD,renal failure and PE Treat the underlying cause Oxygen titrate O2 sats to more than 90% Antifailure medications, nebulizer treatments Patient already has home oxygen --Acute exacerbation of COPD Duo nebs and IV Solu-Medrol and IV Levaquin Oxygen titrate O2 sats to more than 90% BiPAP as needed, pulmonary following --PE [high probability on VQ scan today] VQ scan done today confirms high probability for PE continue Eliquis per protocol Oxygen titrate O2 sats to more than 90% --Congestive heart failure unspecified EF last EF 50 to 55% [2019] chronic diastolic Follow cardiology evaluation recommendations Antifailure medications --Acute on chronic kidney disease Worsening renal function .avoid nephrotoxins Nephrology following, check renal ultrasound Gentle hydration -- Hypertension moderate control Continue current antihypertensives As needed medications --History of coronary artery disease Continue current cardiac medications. Follow cardiology recommendations -- DVT prophylaxis Subcu heparin and SCDs --Full code status Ambulate as tolerated Closely monitor the patient and adjust management as needed Plan of care reviewed with patient and her nurse 03/16/2021; patient feels slightly better on 2 to 3 L of nasal cannula oxygen Follow cardiology, nephrology and pulmonary evaluation recommendations Possible discharge in 1 to 2 days if stable 03/17/2021; patient symptoms slightly improved however still complains of shortness of breath Vital signs noted, worsening renal function continue current management Follow business process consultant recommendations 03/18/2021; VQ scan done today is high probability for PE patient is already started on Eliquis per protocol Worsening renal function, consultants recommendations noted 03/19/2021; patient feels slightly better, already has home oxygen Very minimal improvement of renal function, closely monitor Possible discharge in 1 to 2 days if stable History Interval history: I have seen and examined the patient at the bedside Patient's chart and medications reviewed Patient feels slightly better anxious to go home Vital signs noted Hospitalist Physical - Constitutional Vitals: Temp Pulse Resp BP Pulse Ox 98.0 F 92 H 18 143/65 98 03/19/21 07:59 03/19/21 07:59 03/19/21 07:59 03/19/21 07:59 03/19/21 09:35 General appearance: Present: no acute distress, well-nourished - EENT Eyes: Present: PERRL, EOM intact - Neck Neck: Present: supple, normal ROM - Respiratory Respiratory effort: normal Respiratory: bilateral: diminished, negative: rales, rhonchi, wheezing - Cardiovascular Rhythm: regular Heart Sounds: Present: S1 & S2 - Extremities Extremities: no ischemia, No edema - Abdominal General gastrointestinal: soft, non-tender, non-distended, normal bowel sounds - Integumentary Integumentary: Present: clear, warm - Psychiatric Psychiatric: appropriate mood/affect, cooperative - Neurologic Neurologic: moves all extremities HEART Score - HEART Score Risk factors: > 3 risk factors or hx of atherosclerotic disease Troponin: Troponin T 0.029 ng/mL (0.00-0.029) 03/15/21 14:35 Troponin: < normal limit - Critical Actions Critical Actions: 4-6 pts:12-16.6% risk of adverse cardiac event. Should be admitted Results - Labs CBC & Chem 7: 03/15/21 14:07 03/19/21 04:15 Labs: Laboratory Last Values WBC 5.9 K/mm3 (4.5-11.0) 03/15/21 14:07 RBC 3.54 M/mm3 (3.65-5.03) L 03/15/21 14:07 Hgb 10.0 gm/dl (10.1-14.3) L 03/15/21 14:07 Hct 31.2 % (30.3-42.9) 03/15/21 14:07 MCV 88 fl (79-97) 03/15/21 14:07 MCH 28 pg (28-32) 03/15/21 14:07 MCHC 32 % (30-34) 03/15/21 14:07 RDW 16.4 % (13.2-15.2) H 03/15/21 14:07 Plt Count 245 K/mm3 (140-440) 03/15/21 14:07 Lymph % (Auto) 20.4 % (13.4-35.0) 03/15/21 14:07 Calvert % (Auto) 6.0 % (0.0-7.3) 03/15/21 14:07 Eos % (Auto) 5.6 % (0.0-4.3) H 03/15/21 14:07 Baso % (Auto) 0.9 % (0.0-1.8) 03/15/21 14:07 Lymph # (Auto) 1.2 K/mm3 (1.2-5.4) 03/15/21 14:07 Calvert # (Auto) 0.4 K/mm3 (0.0-0.8) 03/15/21 14:07 Eos # (Auto) 0.3 K/mm3 (0.0-0.4) 03/15/21 14:07 Baso # (Auto) 0.1 K/mm3 (0.0-0.1) 03/15/21 14:07 Seg Neutrophils % 67.1 % (40.0-70.0) 03/15/21 14:07 Seg Neutrophils # 4.0 K/mm3 (1.8-7.7) 03/15/21 14:07 Sodium 142 mmol/L (137-145) 03/19/21 04:15 Potassium 5.0 mmol/L (3.6-5.0) 03/19/21 04:15 Chloride 107.3 mmol/L (98-107) H 03/19/21 04:15 Carbon Dioxide 26 mmol/L (22-30) 03/19/21 04:15 Anion Gap 14 mmol/L 03/19/21 04:15 BUN 72 mg/dL (7-17) H 03/19/21 04:15 Creatinine 4.0 mg/dL (0.6-1.2) H 03/19/21 04:15 Estimated GFR 13 ml/min 03/19/21 04:15 BUN/Creatinine Ratio 18 % 03/19/21 04:15 Glucose 157 mg/dL (65-100) H 03/19/21 04:15 Lactic Acid 0.90 mmol/L (0.7-2.0) 03/15/21 16:26 Calcium 8.0 mg/dL (8.4-10.2) L 03/19/21 04:15 Magnesium 2.00 mg/dL (1.7-2.3) 03/17/21 04:41 Total Bilirubin 0.20 mg/dL (0.1-1.2) 03/17/21 04:41 AST 8 units/L (5-40) 03/17/21 04:41 ALT 7 units/L (7-56) 03/17/21 04:41 Alkaline Phosphatase 58 units/L (35-129) 03/17/21 04:41 Troponin T 0.029 ng/mL (0.00-0.029) 03/15/21 14:35 NT-Pro-B Natriuret Pep 1245 pg/mL (0-900) H 03/15/21 14:07 Total Protein 6.1 g/dL (6.3-8.2) L 03/17/21 04:41 Albumin 3.8 g/dL (3.9-5) L 03/17/21 04:41 Albumin/Globulin Ratio 1.7 % 03/17/21 04:41 Urine Color Straw (Yellow) 03/16/21 15:30 Urine Turbidity Clear (Clear) 03/16/21 15:30 Urine pH 5.0 (5.0-7.0) 03/16/21 15:30 Ur Specific Max 1.008 (1.003-1.030) 03/16/21 15:30 Urine Protein <15 mg/dl mg/dL (Negative) 03/16/21 15:30 Urine Glucose (UA) Neg mg/dL (Negative) 03/16/21 15:30 Urine Ketones Neg mg/dL (Negative) 03/16/21 15:30 Urine Blood Neg (Negative) 03/16/21 15:30 Urine Nitrite Neg (Negative) 03/16/21 15:30 Urine Bilirubin Neg (Negative) 03/16/21 15:30 Urine Urobilinogen < 2.0 mg/dL (<2.0) 03/16/21 15:30 Ur Leukocyte Esterase Neg (Negative) 03/16/21 15:30 Urine WBC (Auto) 2.0 /HPF (0.0-6.0) 03/16/21 15:30 Urine RBC (Auto) 2.0 /HPF (0.0-6.0) 03/16/21 15:30 U Epithel Cells (Auto) 2.0 /HPF (0-13.0) 03/16/21 15:30 Urine Bacteria (Auto) 1+ /HPF (Negative) 03/16/21 15:30 Hyaline Casts 1 /LPF 03/16/21 15:30 Urine Mucus Few /HPF 03/16/21 15:30 Urine Creatinine 35.6 mg/dL (0.1-20.0) H 03/16/21 15:30 Urine Sodium 102 mmol/L 03/16/21 15:30 Microbiology: Microbiology 03/15/21 14:07 Peripheral/Venous Blood Culture - Preliminary NO GROWTH AFTER 72 HOURS 03/15/21 14:07 Peripheral/Venous Blood Culture - Preliminary NO GROWTH AFTER 72 HOURS Herrera/IV: Voiding Method Bedside Commode Active Medications - Current Medications Current Medications: Generic Name Dose Route Start Last Admin Trade Name Freq PRN Reason Stop Dose Admin Acetaminophen 650 mg 03/16/21 21:47 03/18/21 21:39 Acetaminophen 325 Mg Tab PO 650 mg Q6H PRN Administration Pain, Mild (1-3) Albuterol 2.5 mg 03/15/21 23:26 Albuterol 2.5 Mg/3 Ml Nebu IH Q4HRT PRN Shortness Of Breath Albuterol/Ipratropium 1 ampul 03/17/21 08:00 03/19/21 07:25 Ipratropium/Albuterol Sulfate 3 Ml Ampul.Neb IH 1 ampul TIDRT MANE Administration Apixaban 5 mg 03/19/21 10:00 03/19/21 09:16 Apixaban 5 Mg Tab PO 5 mg Q12HR MANE Administration Arformoterol Tartrate 15 mcg 03/16/21 08:00 03/19/21 07:25 Arformoterol 15 Mcg/2 Ml Nebu IH 15 mcg Q12HRT MANE Administration Budesonide 0.5 mg 03/16/21 08:00 03/19/21 07:25 Budesonide 0.5 Mg/2 Ml Nebu IH 0.5 mg Q12HRT MANE Administration Famotidine 20 mg 03/16/21 10:00 03/19/21 09:16 Famotidine 20 Mg Tab PO 20 mg DAILY MANE Administration Sodium Chloride 1,000 mls @ 50 mls/hr 03/16/21 12:00 03/18/21 18:10 Nacl 0.45% 1000 Ml IV 50 mls/hr DIRECT MANE Administration Levofloxacin 500 mg 03/18/21 12:00 03/18/21 12:28 Levofloxacin 500 Mg Tab PO 03/24/21 12:01 500 mg Q48H MANE Administration Protocol Methylprednisolone Sodium Succinate 80 mg 03/15/21 23:45 03/19/21 05:29 Methylprednisolone Sod Succinate 40 Mg/1 Ml Inj IV 80 mg Q8HR MANE Administration Mirtazapine 30 mg 03/15/21 23:20 03/18/21 21:39 Mirtazapine 15 Mg Tab PO 30 mg QHS PRN Administration Insomnia Nutrition/Malnutrition Assess - Dietary Evaluation Nutrition/Malnutrition Findings: Nutrition Notes Start: 03/16/21 10:27 Freq: Status: Active Protocol: Document 03/16/21 10:27 AT (Rec: 03/16/21 10:28 AT [id number]) Co-Sign 03/16/21 10:27 MK Nutrition Notes Need for Assessment generated from: lead nitrate processor,MST Initial or Follow up Brief Note Current Diagnosis CKD(stage I-IV),COPD,Coronary Artery Disease,Hypertension, Respiratory Failure Other Pertinent Diagnosis Hx of CVA x 2, Hx of [place], SOB Current Diet Cardiac Subjective/Other Information Screen for malnutrition. Screened pt for malnutrition at last visit (last week), but did not find malnutrition. Pt presents with no weight loss nor physical signs of malnutrition. Pt reports admission due to inability to complete ADLs. Pt reports normal appetite and is eating 100% of hospital meals. Pt denies the need for ONS. Nutrition Intervention Revisit per MD consult or patient Sign Off request:
--- NOTE | 2021-03-19 12:28 | Progress Note ---
Assessment and Plan 1. Acute kidney injury: Vasomotor NELIDA superimposed on CKD stage 4. Patient with known h/o stage 4 CKD and followed by our service. UA bland. Renal US negative for hydro. Likley ATN. Continue IV fluids Monitor renal function. Creatinine leveled off. Avoid nephrotoxic agents. Meds dosage based on GFR. Patient refused to stay and decided to go home. 2. FEN: Monitor lytes and volume status. 3. Atypical chest pain: Followed by Cards. 4. COPD exacerbation. On Steroids, Pulmicort and Albuterol. Followed by Pulmonary. Monitor. 5. Chronic respiratory failure: NC O2. 6. Chronic Anemia: POA. Subjective: Patient was not examined today. However the examination findings from other providers noted. The current and previous medical records are reviewed in detail as are laboratory and imaging data reviewed when appropriate. Medications being given are also reviewed. In addition the case has been discussed with the attending hospitalist and the nurse when needed. New renal recommendations as above. Subjective Date of service: 03/19/21 Objective - Vital Signs Vital signs: Vital Signs - 12hr 03/19/21 03/19/21 03/19/21 01:00 04:27 07:35 Temperature 97.6 F Pulse Rate 103 H 96 H Pulse Rate [ 81 Bilateral Throughout] Respiratory 20 Rate Respiratory 16 Rate [Bilateral Throughout] Blood Pressure 123/76 O2 Sat by Pulse 97 Oximetry 03/19/21 03/19/21 07:59 09:35 Temperature 98.0 F Pulse Rate 92 H Pulse Rate [ Bilateral Throughout] Respiratory 18 Rate Respiratory Rate [Bilateral Throughout] Blood Pressure 143/65 O2 Sat by Pulse 94 98 Oximetry - Lab 03/15/21 14:07 03/19/21 04:15 Most recent lab results Calcium 8.0 mg/dL (8.4-10.2) L 03/19/21 04:15 Magnesium 2.00 mg/dL (1.7-2.3) 03/17/21 04:41 Urine Creatinine 35.6 mg/dL (0.1-20.0) H 03/16/21 15:30 Urine Sodium 102 mmol/L 03/16/21 15:30 Medications & Allergies - Medications Allergies/Adverse Reactions: Allergies aspirin Allergy (Verified 03/15/21 13:33) Hives Penicillins Allergy (Verified 03/15/21 13:33) Hives Sulfa (Sulfonamide Antibiotics) Allergy (Verified 03/15/21 13:33) Hives Home Medications: Home Medications Medication Instructions Recorded Confirmed Last Taken Type ALBUTEROL Inhaler(NF) [VENTOLIN 2 puff IH Q4H PRN #1 inha 11/01/18 03/16/21 08/07/19 Rx Inhaler(NF)] Famotidine [Pepcid] 20 mg PO DAILY #30 tablet 11/01/18 03/16/21 08/07/19 Rx Mirtazapine [Remeron 30mg TAB] 30 mg PO QHS PRN #30 tablet 11/01/18 03/16/21 08/07/19 Rx Budesonide/Formoterol Fumarate 2 puff IH DAILY #1 hfa.aer.ad 03/12/21 03/16/21 Unknown Rx [Symbicort 160-4.5 Mcg Inhaler] Ipratropium/Albuterol Sulfate 1 ampul IH QIDRT #120 ampul.neb 03/12/21 03/16/21 Unknown Rx [DUONEB *Not for PRN Use*] Apixaban [Eliquis] 5 mg PO Q12HR #60 tablet 03/19/21 Unknown Rx Arformoterol Nebu [Brovana Nebu] 15 mcg IH Q12HRT #30 ml 03/19/21 Unknown Rx Budesonide [Pulmicort Respules] 0.5 mg IH Q12HRT #30 nebu 03/19/21 Unknown Rx levoFLOXacin [Levaquin TAB] 500 mg PO Q48H #3 tablet 03/19/21 Unknown Rx predniSONE [Deltasone] 20 mg PO QDAY #60 tab 03/19/21 Unknown Rx Active Medications: Generic Name Dose Route Start Last Admin Trade Name Freq PRN Reason Stop Dose Admin Acetaminophen 650 mg 03/16/21 21:47 03/18/21 21:39 Acetaminophen 325 Mg Tab PO 650 mg Q6H PRN Administration Pain, Mild (1-3) Albuterol 2.5 mg 03/15/21 23:26 Albuterol 2.5 Mg/3 Ml Nebu IH Q4HRT PRN Shortness Of Breath Albuterol/Ipratropium 1 ampul 03/17/21 08:00 03/19/21 07:25 Ipratropium/Albuterol Sulfate 3 Ml Ampul.Neb IH 1 ampul TIDRT MANE Administration Apixaban 5 mg 03/19/21 10:00 03/19/21 09:16 Apixaban 5 Mg Tab PO 5 mg Q12HR MANE Administration Arformoterol Tartrate 15 mcg 03/16/21 08:00 03/19/21 07:25 Arformoterol 15 Mcg/2 Ml Nebu IH 15 mcg Q12HRT MANE Administration Budesonide 0.5 mg 03/16/21 08:00 03/19/21 07:25 Budesonide 0.5 Mg/2 Ml Nebu IH 0.5 mg Q12HRT MANE Administration Famotidine 20 mg 03/16/21 10:00 03/19/21 09:16 Famotidine 20 Mg Tab PO 20 mg DAILY MANE Administration Sodium Chloride 1,000 mls @ 50 mls/hr 03/16/21 12:00 03/18/21 18:10 Nacl 0.45% 1000 Ml IV 50 mls/hr DIRECT MANE Administration Levofloxacin 500 mg 03/18/21 12:00 03/18/21 12:28 Levofloxacin 500 Mg Tab PO 03/24/21 12:01 500 mg Q48H MANE Administration Protocol Methylprednisolone Sodium Succinate 80 mg 03/15/21 23:45 03/19/21 05:29 Methylprednisolone Sod Succinate 40 Mg/1 Ml Inj IV 80 mg Q8HR MANE Administration Mirtazapine 30 mg 03/15/21 23:20 03/18/21 21:39 Mirtazapine 15 Mg Tab PO 30 mg QHS PRN Administration Insomnia
--- NOTE | 2021-03-19 12:36 | Progress Note ---
Assessment and Plan 80 y/o female with presumptive COPD exacerbation 03/19/21: Most likely PE has been cause of the most recent bouts of COPD exacerbation. Will discuss with rads of the imaging is consistent with chronic thromboembolic disease vs acute. As outpatient will need follow up echo to evaluate pulmonary HTN if present. Lifelong anticoagulation. Follow up in our office in 10-14 days. 03/18/21: Will drop steroids to 40q8 starting today. Likely will need prolonged taper at discharge. Suggest the followin daily for 5 days, then 40 daily until she follows up with Jonathan in the office. Would give 20mg tabs and give her 60 pills. That should hold her until she can follow up as well as give her some left over to finish the taper. Continue pulmicort and brovana therapy. 03/17/21: Given recurrent bouts of exacerbation with relative clear CXR, suggest ruling out thromboembolic disease with V/Q as patient is in renal failure. Can likely start to taper steroids tomorrow. Suggest dropping to 40q8. Continue pulmicort and brovana therapy. I am not sure if the patient has home O2 or not, if not, patient will need walk test prior to discharge to assess oxygen therapy needs, if any. Will continue to follow along with the patient. If there are questions about my plan or if my note is not clear please feel free to call my office [phone] and will get back to you as soon as possible. 1. Consider V/Q scan to look for PE as she is in renal failure and not able to obtain CTA 2. Continue current dose of steroids 3. Continue pulmicort and brovana 4. Would stop abx therapy 5. Will continue to follow. Subjective Date of service: 03/19/21 Interval history: Patient requesting to be discharge. V/Q was high prob for PE. already on anticoagulation. Objective Vital Signs - 12hr 03/19/21 03/19/21 03/19/21 01:00 04:27 07:35 Temperature 97.6 F Pulse Rate 103 H 96 H Pulse Rate [ 81 Bilateral Throughout] Respiratory 20 Rate Respiratory 16 Rate [Bilateral Throughout] Blood Pressure 123/76 O2 Sat by Pulse 97 Oximetry 03/19/21 03/19/21 07:59 09:35 Temperature 98.0 F Pulse Rate 92 H Pulse Rate [ Bilateral Throughout] Respiratory 18 Rate Respiratory Rate [Bilateral Throughout] Blood Pressure 143/65 O2 Sat by Pulse 94 98 Oximetry CBC and BMP: 03/15/21 14:07 03/19/21 04:15 Abnormal lab findings: Abnormal Labs 03/15/21 03/15/21 03/15/21 14:07 14:07 Unknown RBC 3.54 L Hgb 10.0 L RDW 16.4 H Eos % (Auto) 5.6 H Sodium Chloride 109.2 H Carbon Dioxide 21 L BUN 48 H Creatinine 3.9 H Glucose Calcium 8.2 L NT-Pro-B Natriuret Pep 1245 H Total Protein Albumin Urine Creatinine 03/16/21 03/17/21 03/18/21 15:30 04:41 05:28 RBC Hgb RDW Eos % (Auto) Sodium 146 H Chloride 107.1 H Carbon Dioxide BUN 71 H 66 H Creatinine 4.1 H 4.1 H Glucose 156 H 148 H Calcium 8.0 L NT-Pro-B Natriuret Pep Total Protein 6.1 L Albumin 3.8 L Urine Creatinine 35.6 H 03/19/21 04:15 RBC Hgb RDW Eos % (Auto) Sodium Chloride 107.3 H Carbon Dioxide BUN 72 H Creatinine 4.0 H Glucose 157 H Calcium 8.0 L NT-Pro-B Natriuret Pep Total Protein Albumin Urine Creatinine
[2021-03-19 12:56] VITALS: BP 134/68
--- NOTE | 2021-03-19 14:40 | Discharge Summary ---
Providers - Providers Date of Admission: 03/17/21 08:34 Date of discharge: 03/19/21 Attending physician: AISHA ELIAS 03/16/21 07:19 Consult to Physician [CONS] Routine Comment: Consulting Provider: BRAD MELENDEZ Physician Instructions: Reason For Exam: CKD 03/16/21 07:21 Consult to Physician [CONS] Routine Comment: Consulting Provider: TIFFANIE PRICE Physician Instructions: Reason For Exam: CHF 03/16/21 07:22 Consult to Physician [CONS] Routine Comment: Consulting Provider: BILLY DINH Physician Instructions: Reason For Exam: COPD 03/16/21 19:08 Physical Therapy Evaluation and Treat [CONS] Routine Comment: Reason For Exam: pt weak lives alone eval to see if HHPT and or LEGAL ASSOCIATE Primary care physician: TOM GARDUNO Hospitalization Reason for admission: Worsening shortness of breath/acute on chronic hypoxic respiratory failure Condition: Stable Pertinent studies: VQ scan; high probability for PE Patient Hospital course: 80-year-old female patient with significant past medical history of COPD home oxygen dependent coronary artery disease PE hypertension, dual-chamber permanent pacemaker was admitted through emergency room with worsening shortness of breath and acute on chronic hypoxic respiratory failure. Patient was admitted to the hospital appropriately managed, evaluated by cardiology, pulmonary and medications optimized Patient had history of questionable PE on empiric Eliquis, obtained VQ scan during this admission which confirmed high probability for PE, continued Eliquis per protocol.Patient also had acute on chronic kidney disease stage IV, evaluated by ginseng farmer, medications optimized managed with gentle hydration avoiding nephrotoxins and closely monitoring renal function Patient renal function slightly improved, creatinine still high nephrology will do further evaluation and management as outpatientToday patient is comfortable no new complaints vital signs stable Physical examination prior to discharge did not show any new changes Cleared by all the consultants for discharge and follow-up per schedule Patient strongly advised to follow with pulmonary, cardiology, nephrology and her primary care physician per schedule Patient also advised to continue her home oxygen as before, Patient is hemodynamically and clinically stable at discharge Discharge diagnosis; --Acute on chronic respiratory failure with hypoxia Continue home oxygen, nebulizers, steroids as before --Acute exacerbation of COPD Follow pulmonary per schedule --PE [high probability on VQ scan today] Continue Eliquis per protocol, follow private budget and policy analyst as needed --Congestive heart failure unspecified EF last EF 50 to 55% [2019] unspecified --Acute on chronic kidney disease Nephrology evaluated, rest of the management as outpatient -- Hypertension moderate control Continue current antihypertensives --History of dual-chamber PPM; Cardiology evaluated the patient, Stable --History of coronary artery disease Continue current cardiac medications. Follow cardiology recommendations. -- DVT prophylaxis Subcu heparin and SCDs --Full code status Ambulate as tolerated Patient is hemodynamically and clinically stable at discharge Fall precautions Disposition: [id number] HOME UNDER HOME HLTH Final Discharge Diagnosis (Prints w/discharge instructions): Acute on chronic hypoxic respiratory failure. Acute exacerbation of COPD. Pulmonary embolism on V/Q. unspecified congestive heart failure. Acute on chronic kidney disease stage IV. Hypertension. Dual-chamber PPM. Coronary artery disease Time spent for discharge: 35 min Core Measure Documentation - Palliative Care Palliative Care/ Comfort Measures: Not Applicable - Core Measures Any of the following diagnoses?: DVT/PE - VTE Discharge Requirements Deep Vein Thrombosis/Pulmonary Embolism Present on Admission: Yes Has pt received <5 days of overlap therapy or INR<2.0: No (On Eliquis) Anticoagulant overlap therapy prescribed at discharge: No Contraindication No Overlap Therapy order at DC: Not Indicated (On Eliquis) Exam - Constitutional Vitals: Temp Pulse Resp BP Pulse Ox 98.1 F 89 18 134/68 97 03/19/21 12:39 03/19/21 13:00 03/19/21 12:39 03/19/21 12:39 03/19/21 12:39 General appearance: Present: no acute distress, well-nourished - EENT Eyes: Present: PERRL, EOM intact - Neck Neck: Present: supple, normal ROM - Respiratory Respiratory effort: normal Respiratory: bilateral: diminished, negative: rales, rhonchi, wheezing - Cardiovascular Rhythm: regular Heart Sounds: Present: S1 & S2 - Extremities Extremities: no ischemia, No edema - Abdominal General gastrointestinal: Present: soft, non-tender, non-distended, normal bowel sounds - Integumentary Integumentary: Present: clear, warm - Musculoskeletal Musculoskeletal: strength equal bilaterally, generalized weakness - Psychiatric Psychiatric: appropriate mood/affect, cooperative - Neurologic Neurologic: moves all extremities Plan Activity: advance as tolerated, fall precautions Diet: other (CARDIAC DIET) Additional Instructions: Continue home oxygen as before. If you have worsening symptoms contact MD or go to emergency room as needed. Strongly advised to comply with medications diet and follow-up visits. Outpatient echocardiogram to rule out right heart strain[PE] Follow up with: TOM GARDUNO MD [Primary Care Provider] - 3-5 Days ADELAIDA PERERA MD [Staff Physician] - 7 Days BRAD MELENDEZ MD [Staff Physician] - 7 Days TIFFANIE PRICE MD [Staff Physician] - 7 Days Prescriptions: Arformoterol Nebu [Brovana Nebu] 15 mcg IH Q12HRT #30 ml predniSONE [Deltasone] 20 mg PO QDAY #60 tab Apixaban [Eliquis] 5 mg PO Q12HR #60 tablet levoFLOXacin [Levaquin TAB] 500 mg PO Q48H #3 tablet Budesonide [Pulmicort Respules] 0.5 mg IH Q12HRT #30 nebu
== END 2021-03-19 16:27 | disposition home health service (06) | DRG 291 ==
LOC: ED 13:13 → 4A 18:12 → OBSVTOIN 03-17 08:34
PROVIDERS: ADMIT Internal Medicine; ATTEND Internal Medicine
DX: I13.0 Hypertensive heart and chronic kidney disease with heart failure and stage 1 through stage 4 chronic kidney disease, or unspecified chronic kidney disease (principal); I50.23 Acute on chronic systolic (congestive) heart failure; J96.01 Acute respiratory failure with hypoxia; N17.0 Acute kidney failure with tubular necrosis; J44.1 Chronic obstructive pulmonary disease with (acute) exacerbation; N18.4 Chronic kidney disease, stage 4 (severe); I25.10 Atherosclerotic heart disease of native coronary artery without angina pectoris; I45.10 Unspecified right bundle-branch block; M19.90 Unspecified osteoarthritis, unspecified site; J45.909 Unspecified asthma, uncomplicated; Z87.01 Personal history of pneumonia (recurrent); Z79.899 Other long term (current) drug therapy; Z79.891 Long term (current) use of opiate analgesic; Z79.01 Long term (current) use of anticoagulants; Z88.8 Allergy status to other drugs, medicaments and biological substances; Z88.0 Allergy status to penicillin; Z88.2 Allergy status to sulfonamides; Z86.73 Personal history of transient ischemic attack (TIA), and cerebral infarction without residual deficits; I25.2 Old myocardial infarction; Z95.0 Presence of cardiac pacemaker; Z95.1 Presence of aortocoronary bypass graft; Z90.710 Acquired absence of both cervix and uterus
CPT/HCPCS: 36415; 71045; 76770; 78580; 80048; 80053; 81001; 82140; 82570; 83735; 83880; 84132; 84300; 84484; 85025; 87040; 93005; 94640; 94644; 96365; 96375; G0378; A9540; J0456; J1940; J1956; J2920; J2930; J7030

== ENCOUNTER 2021-04-13 19:11 | Emergency (ER) | payer MEDICARE ==
[2021-04-13] MEDS ORDERED: IPRATROPIUM 0.02% NEBU 2.5 ML IH ONE (19:41)
[2021-04-13] MEDS ORDERED: ALBUTEROL 2.5 MG/3 ML NEBU IH ONE (19:41)
[2021-04-13] MEDS ORDERED: methylPREDNISolone Sod Succinate 125 MG/2 ML INJ IM ONE (19:41)
[2021-04-13] MEDS ORDERED: SODIUM CHLORIDE 0.9% 500 ML 500 ML IV ONE (19:41)
--- NOTE | 2021-04-13 19:47 | Emergency Department Report ---
ED General Adult HPI - General Chief complaint: Dyspnea/Respdistress Stated complaint: NIRAV, GENERAL SICK Time Seen by Provider: 04/13/21 19:28 Source: EMS Mode of arrival: Stretcher Limitations: No Limitations - History of Present Illness Initial comments: The patient presents to the emergency department with a chief complaint of shortness of breath that started this morning. Patient has a history of lung disease and is on 2 L nasal cannula continuously at home. Per EMS upon arrival the patient was 85% on 2 L nasal cannula. Patient O2 sats increased to 95% on 4 L. Patient states that she has no chest pain, dull pain, headache. -: Sudden Severity scale (0 -10): 0 Consistency: constant Improves with: none Worsens with: none Associated Symptoms: denies other symptoms Treatments Prior to Arrival: none - Related Data Previous Rx's Medication Instructions Recorded Last Taken Type ALBUTEROL Inhaler(NF) [VENTOLIN 2 puff IH Q4H PRN #1 inha 11/01/18 08/07/19 Rx Inhaler(NF)] Famotidine [Pepcid] 20 mg PO DAILY #30 tablet 11/01/18 08/07/19 Rx Mirtazapine [Remeron 30mg TAB] 30 mg PO QHS PRN #30 tablet 11/01/18 08/07/19 Rx Budesonide/Formoterol Fumarate 2 puff IH DAILY #1 hfa.aer.ad 03/12/21 Unknown Rx [Symbicort 160-4.5 Mcg Inhaler] Ipratropium/Albuterol Sulfate 1 ampul IH QIDRT #120 ampul.neb 03/12/21 Unknown Rx [DUONEB *Not for PRN Use*] Apixaban [Eliquis] 5 mg PO Q12HR #60 tablet 03/19/21 Unknown Rx Arformoterol Nebu [Brovana Nebu] 15 mcg IH Q12HRT #30 ml 03/19/21 Unknown Rx Budesonide [Pulmicort Respules] 0.5 mg IH Q12HRT #30 nebu 03/19/21 Unknown Rx levoFLOXacin [Levaquin TAB] 500 mg PO Q48H #3 tablet 03/19/21 Unknown Rx predniSONE [Deltasone] 20 mg PO QDAY #60 tab 03/19/21 Unknown Rx Allergies Allergy/AdvReac Type Severity Reaction Status Date / Time aspirin Allergy Hives Verified 03/15/21 13:33 Penicillins Allergy Hives Verified 03/15/21 13:33 Sulfa (Sulfonamide Allergy Hives Verified 03/15/21 13:33 Antibiotics) ED Review of Systems ROS: Stated complaint: NIRAV, GENERAL SICK Other details as noted in HPI Comment: All other systems reviewed and negative Constitutional: denies: chills, fever Eyes: denies: eye pain, eye discharge, vision change ENT: denies: ear pain, throat pain Respiratory: shortness of breath. 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 Hx Congestive Heart Failure: Yes Hx Diabetes: No Hx Deep Vein Thrombosis: No Hx Pulmonary Embolism: No Hx Liver Disease: No Hx Renal Disease: Yes Hx Sickle Cell Disease: No Hx Arthritis: Yes Hx Headaches / Migraines: No Hx Seizures: No Hx Kidney Stones: No Hx Psychiatric Treatment: No Hx Asthma: Yes Hx COPD: Yes Hx Tuberculosis: No Hx Dementia: No Hx HIV: No Additional medical history: Chronic Bronchitis - Surgical History Hx Coronary Stent: No Hx Open Heart Surgery: Yes Hx Pacemaker: Yes Hx Internal Defibrillator: No Hx Cholecystectomy: No Hx Appendectomy: No Hx Breast Surgery: No Additional Surgical History: Right Knee Surgery , demand pacemaker (90's). Hyst. cataract removal in both eyes, - Social History Smoking Status: Never Smoker - Medications Home Medications: Home Medications Medication Instructions Recorded Confirmed Last Taken Type ALBUTEROL Inhaler(NF) [VENTOLIN 2 puff IH Q4H PRN #1 inha 11/01/18 03/16/21 08/07/19 Rx Inhaler(NF)] Famotidine [Pepcid] 20 mg PO DAILY #30 tablet 11/01/18 03/16/21 08/07/19 Rx Mirtazapine [Remeron 30mg TAB] 30 mg PO QHS PRN #30 tablet 11/01/18 03/16/21 08/07/19 Rx Budesonide/Formoterol Fumarate 2 puff IH DAILY #1 hfa.aer.ad 03/12/21 03/16/21 Unknown Rx [Symbicort 160-4.5 Mcg Inhaler] Ipratropium/Albuterol Sulfate 1 ampul IH QIDRT #120 ampul.neb 03/12/21 03/16/21 Unknown Rx [DUONEB *Not for PRN Use*] Apixaban [Eliquis] 5 mg PO Q12HR #60 tablet 03/19/21 Unknown Rx Arformoterol Nebu [Brovana Nebu] 15 mcg IH Q12HRT #30 ml 03/19/21 Unknown Rx Budesonide [Pulmicort Respules] 0.5 mg IH Q12HRT #30 nebu 03/19/21 Unknown Rx levoFLOXacin [Levaquin TAB] 500 mg PO Q48H #3 tablet 03/19/21 Unknown Rx predniSONE [Deltasone] 20 mg PO QDAY #60 tab 03/19/21 Unknown Rx ED Physical Exam - General Limitations: No Limitations General appearance: alert, in no apparent distress - Head Head exam: Present: atraumatic, normocephalic - Eye Eye exam: Present: normal appearance - ENT ENT exam: Present: mucous membranes moist - Neck Neck exam: Present: normal inspection - Respiratory Respiratory exam: Present: wheezes. Absent: respiratory distress - Cardiovascular Cardiovascular Exam: Present: regular rate, normal rhythm. Absent: systolic murmur, diastolic murmur, rubs, gallop - GI/Abdominal GI/Abdominal exam: Present: soft, normal bowel sounds. Absent: distended, tenderness - Extremities Exam Extremities exam: Present: normal inspection - Back Exam Back exam: Present: normal inspection - Neurological Exam Neurological exam: Present: alert, oriented X3 - Psychiatric Psychiatric exam: Present: normal affect, normal mood - Skin Skin exam: Present: warm, dry, intact, normal color. Absent: rash ED Course Vital Signs 04/13/21 04/13/21 04/13/21 19:27 19:28 19:29 Temperature 98.3 F Pulse Rate 85 Pulse Rate [ Bilateral] Respiratory 37 H 22 Rate Respiratory Rate [Bilateral ] Blood Pressure 133/61 Blood Pressure [Right] O2 Sat by Pulse 99 100 Oximetry 04/13/21 04/13/21 21:03 23:25 Temperature Pulse Rate 87 Pulse Rate [ 85 Bilateral] Respiratory 22 Rate Respiratory 20 Rate [Bilateral ] Blood Pressure Blood Pressure 130/62 [Right] O2 Sat by Pulse 98 Oximetry ED Medical Decision Making - Lab Data Result diagrams: 04/13/21 19:48 04/13/21 19:48 Lab Results 04/13/21 04/13/21 04/13/21 Range/Units 19:48 19:48 19:56 WBC 5.9 (4.5-11.0) K/mm3 RBC 3.10 L (3.65-5.03) M/mm3 Hgb 8.9 L (10.1-14.3) gm/dl Hct 27.7 L (30.3-42.9) % MCV 89 (79-97) fl MCH 29 (28-32) pg MCHC 32 (30-34) % RDW 18.3 H (13.2-15.2) % Plt Count 169 (140-440) K/mm3 Lymph % (Auto) 8.8 L (13.4-35.0) % [place] % (Auto) 9.3 H (0.0-7.3) % Eos % (Auto) 2.4 (0.0-4.3) % Baso % (Auto) 0.9 (0.0-1.8) % Lymph # (Auto) 0.5 L (1.2-5.4) K/mm3 [place] # (Auto) 0.5 (0.0-0.8) K/mm3 Eos # (Auto) 0.1 (0.0-0.4) K/mm3 Baso # (Auto) 0.1 (0.0-0.1) K/mm3 Seg Neutrophils % 78.6 H (40.0-70.0) % Seg Neutrophils # 4.6 (1.8-7.7) K/mm3 Sodium 146 H (137-145) mmol/L Potassium 5.9 H (3.6-5.0) mmol/L Chloride 104.3 (98-107) mmol/L Carbon Dioxide 29 (22-30) mmol/L Anion Gap 19 mmol/L BUN 50 H (7-17) mg/dL Creatinine 3.2 H (0.6-1.2) mg/dL Estimated GFR 17 ml/min BUN/Creatinine Ratio 16 % Glucose 59 L (65-100) mg/dL Calcium 8.9 (8.4-10.2) mg/dL Total Bilirubin 0.20 (0.1-1.2) mg/dL AST 14 (5-40) units/L ALT 10 (7-56) units/L Alkaline Phosphatase 60 (35-129) units/L Troponin T 0.044 H (0.00-0.029) ng/mL NT-Pro-B Natriuret Pep 1723 H (0-900) pg/mL Total Protein 6.3 (6.3-8.2) g/dL Albumin 4.2 (3.9-5) g/dL Albumin/Globulin Ratio 2.0 % Triglycerides 233 H (2-149) mg/dL Cholesterol 258 H (50-199) mg/dL LDL Cholesterol Direct 122 (50-130) mg/dL HDL Cholesterol 98 H (40-59) mg/dL Cholesterol/HDL Ratio 2.63 % 06/16/21 Range/Units 23:55 WBC (4.5-11.0) K/mm3 RBC (3.65-5.03) M/mm3 Hgb (10.1-14.3) gm/dl Hct (30.3-42.9) % MCV (79-97) fl MCH (28-32) pg MCHC (30-34) % RDW (13.2-15.2) % Plt Count (140-440) K/mm3 Lymph % (Auto) (13.4-35.0) % [place] % (Auto) (0.0-7.3) % Eos % (Auto) (0.0-4.3) % Baso % (Auto) (0.0-1.8) % Lymph # (Auto) (1.2-5.4) K/mm3 [place] # (Auto) (0.0-0.8) K/mm3 Eos # (Auto) (0.0-0.4) K/mm3 Baso # (Auto) (0.0-0.1) K/mm3 Seg Neutrophils % (40.0-70.0) % Seg Neutrophils # (1.8-7.7) K/mm3 Sodium (137-145) mmol/L Potassium (3.6-5.0) mmol/L Chloride (98-107) mmol/L Carbon Dioxide (22-30) mmol/L Anion Gap mmol/L BUN (7-17) mg/dL Creatinine (0.6-1.2) mg/dL Estimated GFR ml/min BUN/Creatinine Ratio % Glucose (65-100) mg/dL Calcium (8.4-10.2) mg/dL Total Bilirubin (0.1-1.2) mg/dL AST (5-40) units/L ALT (7-56) units/L Alkaline Phosphatase (35-129) units/L Troponin T 0.037 H (0.00-0.029) ng/mL NT-Pro-B Natriuret Pep (0-900) pg/mL Total Protein (6.3-8.2) g/dL Albumin (3.9-5) g/dL Albumin/Globulin Ratio % Triglycerides (2-149) mg/dL Cholesterol (50-199) mg/dL LDL Cholesterol Direct (50-130) mg/dL HDL Cholesterol (40-59) mg/dL Cholesterol/HDL Ratio % Lab Results 04/13/21 04/13/21 04/13/21 Range/Units 19:48 19:48 19:56 WBC 5.9 (4.5-11.0) K/mm3 RBC 3.10 L (3.65-5.03) M/mm3 Hgb 8.9 L (10.1-14.3) gm/dl Hct 27.7 L (30.3-42.9) % MCV 89 (79-97) fl MCH 29 (28-32) pg MCHC 32 (30-34) % RDW 18.3 H (13.2-15.2) % Plt Count 169 (140-440) K/mm3 Lymph % (Auto) 8.8 L (13.4-35.0) % [place] % (Auto) 9.3 H (0.0-7.3) % Eos % (Auto) 2.4 (0.0-4.3) % Baso % (Auto) 0.9 (0.0-1.8) % Lymph # (Auto) 0.5 L (1.2-5.4) K/mm3 [place] # (Auto) 0.5 (0.0-0.8) K/mm3 Eos # (Auto) 0.1 (0.0-0.4) K/mm3 Baso # (Auto) 0.1 (0.0-0.1) K/mm3 Seg Neutrophils % 78.6 H (40.0-70.0) % Seg Neutrophils # 4.6 (1.8-7.7) K/mm3 Sodium 146 H (137-145) mmol/L Potassium 5.9 H (3.6-5.0) mmol/L Chloride 104.3 (98-107) mmol/L Carbon Dioxide 29 (22-30) mmol/L Anion Gap 19 mmol/L BUN 50 H (7-17) mg/dL Creatinine 3.2 H (0.6-1.2) mg/dL Estimated GFR 17 ml/min BUN/Creatinine Ratio 16 % Glucose 59 L (65-100) mg/dL Calcium 8.9 (8.4-10.2) mg/dL Total Bilirubin 0.20 (0.1-1.2) mg/dL AST 14 (5-40) units/L ALT 10 (7-56) units/L Alkaline Phosphatase 60 (35-129) units/L Troponin T 0.044 H (0.00-0.029) ng/mL NT-Pro-B Natriuret Pep 1723 H (0-900) pg/mL Total Protein 6.3 (6.3-8.2) g/dL Albumin 4.2 (3.9-5) g/dL Albumin/Globulin Ratio 2.0 % Triglycerides 233 H (2-149) mg/dL Cholesterol 258 H (50-199) mg/dL LDL Cholesterol Direct 122 (50-130) mg/dL HDL Cholesterol 98 H (40-59) mg/dL Cholesterol/HDL Ratio 2.63 % /16 Range/Units 23:55 WBC (4.5-11.0) K/mm3 RBC (3.65-5.03) M/mm3 Hgb (10.1-14.3) gm/dl Hct (30.3-42.9) % MCV (79-97) fl MCH (28-32) pg MCHC (30-34) % RDW (13.2-15.2) % Plt Count (140-440) K/mm3 Lymph % (Auto) (13.4-35.0) % [place] % (Auto) (0.0-7.3) % Eos % (Auto) (0.0-4.3) % Baso % (Auto) (0.0-1.8) % Lymph # (Auto) (1.2-5.4) K/mm3 [place] # (Auto) (0.0-0.8) K/mm3 Eos # (Auto) (0.0-0.4) K/mm3 Baso # (Auto) (0.0-0.1) K/mm3 Seg Neutrophils % (40.0-70.0) % Seg Neutrophils # (1.8-7.7) K/mm3 Sodium (137-145) mmol/L Potassium (3.6-5.0) mmol/L Chloride (98-107) mmol/L Carbon Dioxide (22-30) mmol/L Anion Gap mmol/L BUN (7-17) mg/dL Creatinine (0.6-1.2) mg/dL Estimated GFR ml/min BUN/Creatinine Ratio % Glucose (65-100) mg/dL Calcium (8.4-10.2) mg/dL Total Bilirubin (0.1-1.2) mg/dL AST (5-40) units/L ALT (7-56) units/L Alkaline Phosphatase (35-129) units/L Troponin T 0.037 H (0.00-0.029) ng/mL NT-Pro-B Natriuret Pep (0-900) pg/mL Total Protein (6.3-8.2) g/dL Albumin (3.9-5) g/dL Albumin/Globulin Ratio % Triglycerides (2-149) mg/dL Cholesterol (50-199) mg/dL LDL Cholesterol Direct (50-130) mg/dL HDL Cholesterol (40-59) mg/dL Cholesterol/HDL Ratio % - EKG Data -: EKG Interpreted by Id EKG shows normal: sinus rhythm Rate: normal - Radiology Data Radiology results: report reviewed - Medical Decision Making Patient had improvement of her symptoms with continuous breathing treatment and IV Lasix Patient troponin decreased in value on redraw Troponin likely elevated secondary to cardiac strain from congestive heart failure Discussed results with patient and need to follow-up with her physician as an outpatient Critical Care Time: Yes Critical care time in (mins) excluding proc time.: 35 Critical care attestation.: If time is entered above; I have spent that time in minutes in the direct care of this critically ill patient, excluding procedure time. ED Disposition Clinical Impression: COPD (chronic obstructive pulmonary disease), COPD exacerbation, CHF (conge stive heart failure) Disposition: TO HOME OR SELFCARE Is pt being admited?: No Does the pt Need Aspirin: No Condition: Stable Instructions: Chronic Obstructive Pulmonary Disease (ED), Chronic Obstructive Pulmonary Disease, Heart Failure Action Plan, Heart Failure, Self Care, [id number], Heart Failure, Self Care Additional Instructions: Return if worse Referrals: PRIMARY CARE,MD [Primary Care Provider] - 3-5 Days VONNIE RICO MD [Staff Physician] - 3-5 Days BRENDA VALDEZ MD [Staff Physician] - 3-5 Days [facility] [Provider Group] - 3-5 Days [facility] [Provider Group] - 3-5 Days [facility] [Outside] - 3-5 Days Time of Disposition: 01:06
[2021-04-13 20:10] LABS: Basophils # (Auto) 0.1 K/mm3 (0.0-0.1); Basophils % (Auto) 0.9 % (0.0-1.8); Eosinophils # (Auto) 0.1 K/mm3 (0.0-0.4); Eosinophils % (Auto) 2.4 % (0.0-4.3); Hematocrit 27.7 % (30.3-42.9); Hemoglobin 8.9 gm/dl (10.1-14.3); Lymphocytes # (Auto) 0.5 K/mm3 (1.2-5.4); Lymphocytes % (Auto) 8.8 % (13.4-35.0); Mean Corpuscular HGB Conc 32 % (30-34); Mean Corpuscular Volume 89 fl (79-97); Monocytes # (Auto) 0.5 K/mm3 (0.0-0.8); Monocytes % (Auto) 9.3 % (0.0-7.3); Platelet Count 169 K/mm3 (140-440); Red Cell Distribution Width 18.3 % (13.2-15.2)
--- NOTE | 2021-04-13 20:22 | XRay Report ---
CHEST 1 VIEW INDICATION / CLINICAL INFORMATION: cough. COMPARISON: 03/15/2021 FINDINGS: SUPPORT DEVICES: Left-sided pacemaker HEART / MEDIASTINUM: No significant abnormality. LUNGS / PLEURA: Mild pulmonary vascular congestion No pneumothorax. ADDITIONAL FINDINGS: No significant additional findings. IMPRESSION: Mild pulmonary vascular congestion has developed since 03/15/2021. Signer Name: Chuck Brownlee MD FACR Signed: 04/13/2021 8:17 PM Workstation Name: [id number]
[2021-04-13 20:29] LABS: Albumin 4.2 g/dL (3.9-5); Calcium 8.9 mg/dL (8.4-10.2)
[2021-04-13 20:49] LABS: Chol/HDL Ratio 2.63 %
[2021-04-13] MEDS ORDERED: FUROSEMIDE 40 MG/4 ML INJ IV ONE (23:24)
[2021-04-14 06:33] VITALS: BP 150/68
--- NOTE | 2021-04-15 19:31 | Electrocardiograph Report ---
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
== END 2021-04-14 09:10 | disposition home or self-care (01) ==
LOC: ED 19:11
DX: J44.1 Chronic obstructive pulmonary disease with (acute) exacerbation (principal); I11.0 Hypertensive heart disease with heart failure; I50.9 Heart failure, unspecified; I25.2 Old myocardial infarction; M19.90 Unspecified osteoarthritis, unspecified site; Z79.899 Other long term (current) drug therapy; Z88.2 Allergy status to sulfonamides; Z88.0 Allergy status to penicillin; Z88.6 Allergy status to analgesic agent; Z86.73 Personal history of transient ischemic attack (TIA), and cerebral infarction without residual deficits; Z98.890 Other specified postprocedural states
CPT/HCPCS: 36415; 71045; 80053; 80061; 83880; 84484; 85025; 93005; 94644; 96372; 96374; 99284; J1940; J2930; J7040

== ENCOUNTER 2021-04-18 17:05 | Observation (INO) | payer MEDICARE ==
--- NOTE | 2021-04-18 18:20 | Event Note ---
ED Screening Note Date of service: 04/18/21 Time: 18:19 ED Screening Note: Patient with a past medical history of COPD currently on 4 L of oxygen presents with a 2-day history of generalized weakness, increased shortness of breath, increased wheezing and she states that she feels like there is phlegm in her throat but she is having difficulty coughing at all. She denies any worsening cough than typical. She denies any fever or chills. She denies any pain. She states that she has been doing her albuterol nebulizer treatments every 6 hours. She is status post pacemaker placement several years ago and former smoker, quit 20 years ago. She denies any other significant history. This initial assessment/diagnostic orders/clinical plan/treatment(s) is/are subject to change based on patients health status, clinical progression and re- assessment by fellow clinical providers in the ED. Further treatment and workup at subsequent clinical providers discretion. Patient/guardian urged not to elope from the ED as their condition may be serious if not clinically assessed and managed. Initial orders include: Dyspnea order set
[2021-04-18 18:57] LABS: Basophils % (Auto) 0.2 % (0.0-1.8); Eosinophils # (Auto) 0.1 K/mm3 (0.0-0.4); Eosinophils % (Auto) 1.9 % (0.0-4.3); Hematocrit 27.1 % (30.3-42.9); Hemoglobin 8.6 gm/dl (10.1-14.3); Lymphocytes # (Auto) 0.9 K/mm3 (1.2-5.4); Lymphocytes % (Auto) 14.6 % (13.4-35.0); Mean Corpuscular HGB Conc 32 % (30-34); Mean Corpuscular Volume 88 fl (79-97); Monocytes # (Auto) 0.7 K/mm3 (0.0-0.8); Monocytes % (Auto) 10.6 % (0.0-7.3); Platelet Count 196 K/mm3 (140-440); Red Blood Count 3.06 M/mm3 (3.65-5.03); Red Cell Distribution Width 17.3 % (13.2-15.2)
--- NOTE | 2021-04-18 19:00 | XRay Report ---
CHEST 2 VIEWS INDICATION / CLINICAL INFORMATION: Dyspnea. COMPARISON: 04/13/2021 FINDINGS: SUPPORT DEVICES: Pacemaker appears unchanged HEART / MEDIASTINUM: No significant abnormality. LUNGS / PLEURA: There are patchy parenchymal opacities noted in the lung bases. No pneumothorax. ADDITIONAL FINDINGS: No significant additional findings. IMPRESSION: 1. There are mild patchy parenchymal opacities in the lung bases which could represent atelectasis or evolving pneumonia. Signer Name: Vlad Henriquez MD Signed: 04/18/2021 6:55 PM Workstation Name: [id number]
[2021-04-18 19:06] LABS: INR 0.93 (0.87-1.13)
[2021-04-18 19:07] LABS: Partial Thromboplastin Time 24.4 Sec. (24.2-36.6)
[2021-04-18 19:22] LABS: Albumin 3.8 g/dL (3.9-5); Calcium 8.5 mg/dL (8.4-10.2)
--- NOTE | 2021-04-18 23:04 | Emergency Department Report ---
ED General Adult HPI - General Chief complaint: Weakness Stated complaint: WEAKNESS PUI?: No Time Seen by Provider: 04/18/21 22:50 Source: patient, RN notes reviewed, old records reviewed Mode of arrival: Ambulatory Limitations: Physical Limitation - History of Present Illness Initial comments: Primary CARE doctor: Dr. Julio Wyatt Pulmonology: Dr. Castillo Past medical history: COPD, chronic respiratory failure, on chronic home oxygen. High probability nuclear medicine study, on systemic anticoagulation, Eliquis. Chronic renal insufficiency, not on dialysis, hypertension, congestive heart failure, EF of 50 to 55%, coronary artery disease, dual-chamber permanent pacemaker, admitted to this hospital February 2021 for acute on chronic respiratory failure with hypoxia. The patient was seen here in this hospital on April 13, 2021 for shortness of breath. She was diagnosed with presumed COPD exacerbation, as well as CHF. She was given a dose of Lasix, albuterol, Atrovent and steroids, and subsequently discharged. The patient presents to the ER today with a complaint of persistent cough, wheezing, shortness of breath, mucus production, generalized malaise and fatigue. She also reports that she had an episode of syncope and loss of consciousness today while on the bathroom commode, she does not think she hit her head, but she is not certain. She has received a Covid vaccination. She has paraspinal/cervical neck discomfort, no acute/new/different loss of vision, no chest pain, no abdominal pain, no urinary symptoms, no hematemesis of bright red blood per rectum. She walks at home with a walker/cane. She feels generally weak. She feels like her COPD and CHF are "acting up." -: Gradual, Sudden Consistency: constant Improves with: rest Worsens with: movement - Related Data Previous Rx's Medication Instructions Recorded Last Taken Type ALBUTEROL Inhaler(NF) [VENTOLIN 2 puff IH Q4H PRN #1 inha 11/01/18 08/07/19 Rx Inhaler(NF)] Famotidine [Pepcid] 20 mg PO DAILY #30 tablet 11/01/18 08/07/19 Rx Mirtazapine [Remeron 30mg TAB] 30 mg PO QHS PRN #30 tablet 11/01/18 08/07/19 Rx Budesonide/Formoterol Fumarate 2 puff IH DAILY #1 hfa.aer.ad 03/12/21 Unknown Rx [Symbicort 160-4.5 Mcg Inhaler] Ipratropium/Albuterol Sulfate 1 ampul IH QIDRT #120 ampul.neb 03/12/21 Unknown Rx [DUONEB *Not for PRN Use*] Apixaban [Eliquis] 5 mg PO Q12HR #60 tablet 03/19/21 Unknown Rx Arformoterol Nebu [Brovana Nebu] 15 mcg IH Q12HRT #30 ml 03/19/21 Unknown Rx Budesonide [Pulmicort Respules] 0.5 mg IH Q12HRT #30 nebu 03/19/21 Unknown Rx levoFLOXacin [Levaquin TAB] 500 mg PO Q48H #3 tablet 03/19/21 Unknown Rx predniSONE [Deltasone] 20 mg PO QDAY #60 tab 03/19/21 Unknown Rx Allergies Allergy/AdvReac Type Severity Reaction Status Date / Time aspirin Allergy Hives Verified 03/15/21 13:33 Penicillins Allergy Hives Verified 03/15/21 13:33 Sulfa (Sulfonamide Allergy Hives Verified 03/15/21 13:33 Antibiotics) ED Review of Systems ROS: Stated complaint: WEAKNESS Other details as noted in HPI Constitutional: malaise, weakness, other (Denies loss of taste and smell) ENT: congestion Respiratory: cough, shortness of breath, SOB with exertion, SOB at rest, wheezing Cardiovascular: syncope Gastrointestinal: denies: abdominal pain Genitourinary: denies: dysuria Musculoskeletal: myalgia Neurological: weakness. denies: headache Hematological/Lymphatic: denies: easy bleeding ED Past Medical Hx - Past Medical History Previous Medical History?: Yes Hx Hypertension: Yes Hx CVA: Yes (x 2) Hx Heart Attack/AMI: Yes Hx Congestive Heart Failure: Yes Hx Diabetes: No Hx Deep Vein Thrombosis: No Hx Pulmonary Embolism: No Hx Liver Disease: No Hx Renal Disease: Yes Hx Sickle Cell Disease: No Hx Arthritis: Yes Hx Headaches / Migraines: No Hx Seizures: No Hx Kidney Stones: No Hx Psychiatric Treatment: No Hx Asthma: Yes Hx COPD: Yes Hx Tuberculosis: No Hx Dementia: No Hx HIV: No Additional medical history: Chronic Bronchitis - Surgical History Past Surgical History?: Yes Hx Coronary Stent: No Hx Open Heart Surgery: Yes Hx Pacemaker: Yes Hx Internal Defibrillator: No Hx Cholecystectomy: No Hx Appendectomy: No Hx Breast Surgery: No Additional Surgical History: Right Knee Surgery , demand pacemaker (90's). Hyst. cataract removal in both eyes, - Social History Smoking Status: Never Smoker - Medications Home Medications: Home Medications Medication Instructions Recorded Confirmed Last Taken Type ALBUTEROL Inhaler(NF) [VENTOLIN 2 puff IH Q4H PRN #1 inha 11/01/18 03/16/21 08/07/19 Rx Inhaler(NF)] Famotidine [Pepcid] 20 mg PO DAILY #30 tablet 11/01/18 03/16/21 08/07/19 Rx Mirtazapine [Remeron 30mg TAB] 30 mg PO QHS PRN #30 tablet 11/01/18 03/16/21 08/07/19 Rx Budesonide/Formoterol Fumarate 2 puff IH DAILY #1 hfa.aer.ad 03/12/21 03/16/21 Unknown Rx [Symbicort 160-4.5 Mcg Inhaler] Ipratropium/Albuterol Sulfate 1 ampul IH QIDRT #120 ampul.neb 03/12/21 03/16/21 Unknown Rx [DUONEB *Not for PRN Use*] Apixaban [Eliquis] 5 mg PO Q12HR #60 tablet 03/19/21 Unknown Rx Arformoterol Nebu [Brovana Nebu] 15 mcg IH Q12HRT #30 ml 03/19/21 Unknown Rx Budesonide [Pulmicort Respules] 0.5 mg IH Q12HRT #30 nebu 03/19/21 Unknown Rx levoFLOXacin [Levaquin TAB] 500 mg PO Q48H #3 tablet 03/19/21 Unknown Rx predniSONE [Deltasone] 20 mg PO QDAY #60 tab 03/19/21 Unknown Rx ED Physical Exam - General Limitations: Physical Limitation General appearance: alert, anxious, obese - Head Head exam: Present: atraumatic, normocephalic - Eye Eye exam: Present: normal appearance, EOMI - ENT ENT exam: Present: normal exam, normal orophraynx, mucous membranes moist, normal external ear exam - Neck Neck exam: Present: normal inspection, tenderness (There is paracervical tenderness), full ROM - Respiratory Respiratory exam: Present: respiratory distress, wheezes, rhonchi - Cardiovascular Cardiovascular Exam: Present: normal rhythm, tachycardia, normal heart sounds. Absent: systolic murmur, diastolic murmur, rubs, gallop - GI/Abdominal GI/Abdominal exam: Present: soft. Absent: distended, tenderness, guarding, rebound, rigid, pulsatile mass - Extremities Exam Extremities exam: Present: normal inspection, full ROM, pedal edema (1+ edema bilateral lower extremities), other (2+ pulses noted in the bilateral upper and lower extremities. There is no palpable cord. negative Homans sign. Muscular compartments are soft. The pelvis is stable.). Absent: calf tenderness - Back Exam Back exam: Present: normal inspection, paraspinal tenderness. Absent: CVA tenderness (R), CVA tenderness (L) - Neurological Exam Neurological exam: Present: alert, other (No facial droop. Tongue midline. Extraocular movements intact bilaterally. Facial sensation intact to light touch in V1, V2, V3 distribution bilaterally. 5 and a 5 strength in 4 extremities. Sensation intact to light touch in 4 extremities.) - Psychiatric Psychiatric exam: Present: normal affect, normal mood - Skin Skin exam: Present: warm, dry, intact, normal color. Absent: rash ED Course Vital Signs 04/18/21 04/18/21 04/18/21 17:26 22:46 22:50 Temperature 99.1 F Pulse Rate 91 H 120 H Pulse Rate [ Bilateral Throughout] Respiratory 18 13 Rate Respiratory Rate [Bilateral Throughout] Blood Pressure 113/71 113/71 Blood Pressure 121/64 [Right] O2 Sat by Pulse 100 94 95 Oximetry 04/18/21 04/18/21 04/18/21 23:00 23:26 23:53 Temperature Pulse Rate 117 H 122 H Pulse Rate [ 108 H Bilateral Throughout] Respiratory 20 27 H Rate Respiratory 16 Rate [Bilateral Throughout] Blood Pressure 119/52 147/67 Blood Pressure [Right] O2 Sat by Pulse 97 98 Oximetry 04/19/21 04/19/21 04/19/21 00:00 00:52 01:00 Temperature Pulse Rate 112 H 106 H 113 H Pulse Rate [ Bilateral Throughout] Respiratory 16 27 H 26 H Rate Respiratory Rate [Bilateral Throughout] Blood Pressure 132/74 125/62 Blood Pressure 111/64 [Right] O2 Sat by Pulse 95 98 Oximetry 04/19/21 04/19/21 04/19/21 02:14 03:00 04:10 Temperature Pulse Rate 103 H 96 H 102 H Pulse Rate [ Bilateral Throughout] Respiratory 21 22 24 Rate Respiratory Rate [Bilateral Throughout] Blood Pressure 113/56 136/69 Blood Pressure [Right] O2 Sat by Pulse 100 100 Oximetry 04/19/21 04/19/21 04/19/21 04:20 04:30 04:40 Temperature Pulse Rate 103 H 102 H 101 H Pulse Rate [ Bilateral Throughout] Respiratory 18 19 18 Rate Respiratory Rate [Bilateral Throughout] Blood Pressure 136/69 131/69 131/69 Blood Pressure [Right] O2 Sat by Pulse 100 100 100 Oximetry 04/19/21 04/19/21 04/19/21 04:50 05:00 05:10 Temperature Pulse Rate 104 H 105 H 105 H Pulse Rate [ Bilateral Throughout] Respiratory 24 13 17 Rate Respiratory Rate [Bilateral Throughout] Blood Pressure 131/69 133/67 133/67 Blood Pressure [Right] O2 Sat by Pulse 98 99 100 Oximetry 04/19/21 04/19/21 04/19/21 05:20 05:30 05:40 Temperature Pulse Rate 98 H 110 H 107 H Pulse Rate [ Bilateral Throughout] Respiratory 20 20 17 Rate Respiratory Rate [Bilateral Throughout] Blood Pressure 133/67 121/69 133/67 Blood Pressure [Right] O2 Sat by Pulse 100 99 100 Oximetry 04/19/21 05:59 Temperature 98.4 F Pulse Rate 109 H Pulse Rate [ Bilateral Throughout] Respiratory 18 Rate Respiratory Rate [Bilateral Throughout] Blood Pressure 132/58 Blood Pressure [Right] O2 Sat by Pulse 94 Oximetry - Reevaluation(s) Reevaluation #1: 04/18/21 23:58 Differential diagnosis, including but not limited to: COPD exacerbation, CHF exacerbation, bronchitis, fluid overload, orthostasis, vagal event, cardiom yopathy, intracranial injury, cervical spine injury Assessment and plan: Frail 80-year-old female, recently discharged from this hospital last month for multifactorial respiratory failure, seen in this emergency room a few days ago on April 13 for presumed CHF and COPD exacerbation, does not appear to have been discharged with albuterol, steroids, diuretics, now presenting with cough, weakness, shortness of breath, syncope. Continue patient on electronic device monitor, administer albuterol, Atrovent, steroids, Lasix, and antibiotics. Obtain x-ray of the pelvis, and noncontrast CT scan of the brain and cervical spine. Admit to the medical service once initial diagnostics have resulted. Have discussed this plan of care with the patient, who verbalized understanding, and is amenable to this plan of care. Anemia is at baseline, renal insufficiency at baseline, elevated troponin is chronic, and likely a type II troponin leak, likely secondary to patient's chronic multiple comorbidities. The patient reports compliance with her Eliquis. Her syncope is associated with going to the bathroom, this is most likely a vagal orthostatic event, given her recent high probability nuclear medicine stud y and history, would not repeat nuclear medicine study at this time. Continue anticoagulation, assuming noncontrast CT scan of the brain, cervical spine negative for acute findings. Reevaluation #2: 04/19/21 01:42 I did speak to the hospital physician, Dr. Cammy Guzman, About this patient, who requested call back once CT scans have been completed resulted and interpreted. X-ray of the pelvis suggested a possible superior ramus fracture on the right- hand side. Noncontrast CT scan of the brain, cervical spine, and pelvis pending. He will be transferred to the [facility] ER physician, Dr. Javed, to follow-up on CT scans, and admit patient to the medical service. If CT scan of the pelvis demonstrates ramus fracture or pelvis fracture, would consider orthopedic consultation. ED Medical Decision Making - Lab Data Result diagrams: 04/19/21 14:06 04/19/21 14:06 Vital Signs 04/18/21 04/18/21 04/18/21 17:26 22:46 23:00 Temperature 99.1 F Pulse Rate 91 H 117 H Pulse Rate [ Bilateral Throughout] Respiratory 18 20 Rate Respiratory Rate [Bilateral Throughout] Blood Pressure 113/71 119/52 Blood Pressure 121/64 [Right] O2 Sat by Pulse 100 94 97 Oximetry 04/18/21 23:53 Temperature Pulse Rate Pulse Rate [ 108 H Bilateral Throughout] Respiratory Rate Respiratory 16 Rate [Bilateral Throughout] Blood Pressure Blood Pressure [Right] O2 Sat by Pulse Oximetry Lab Results 04/18/21 04/18/21 04/18/21 Range/Units 18:21 18:21 18:21 WBC 6.2 (4.5-11.0) K/mm3 RBC 3.06 L (3.65-5.03) M/mm3 Hgb 8.6 L (10.1-14.3) gm/dl Hct 27.1 L (30.3-42.9) % MCV 88 (79-97) fl MCH 28 (28-32) pg MCHC 32 (30-34) % RDW 17.3 H (13.2-15.2) % Plt Count 196 (140-440) K/mm3 Lymph % (Auto) 14.6 (13.4-35.0) % [place] % (Auto) 10.6 H (0.0-7.3) % Eos % (Auto) 1.9 (0.0-4.3) % Baso % (Auto) 0.2 (0.0-1.8) % Lymph # (Auto) 0.9 L (1.2-5.4) K/mm3 [place] # (Auto) 0.7 (0.0-0.8) K/mm3 Eos # (Auto) 0.1 (0.0-0.4) K/mm3 Baso # (Auto) 0.0 (0.0-0.1) K/mm3 Seg Neutrophils % 72.7 H (40.0-70.0) % Seg Neutrophils # 4.5 (1.8-7.7) K/mm3 PT 13.0 (12.2-14.9) Sec. INR 0.93 (0.87-1.13) APTT 24.4 (24.2-36.6) Sec. Sodium 143 (137-145) mmol/L Potassium 4.4 D (3.6-5.0) mmol/L Chloride 102.9 (98-107) mmol/L Carbon Dioxide 33 H (22-30) mmol/L Anion Gap 12 mmol/L BUN 42 H (7-17) mg/dL Creatinine 3.4 H (0.6-1.2) mg/dL Estimated GFR 16 ml/min BUN/Creatinine Ratio 12 % Glucose 112 H (65-100) mg/dL Calcium 8.5 (8.4-10.2) mg/dL Total Bilirubin 0.20 (0.1-1.2) mg/dL AST 10 (5-40) units/L ALT 8 (7-56) units/L Alkaline Phosphatase 59 (35-129) units/L Troponin T (0.00-0.029) ng/mL Total Protein 6.0 L (6.3-8.2) g/dL Albumin 3.8 L (3.9-5) g/dL Albumin/Globulin Ratio 1.7 % 04/18/21 04/18/21 Range/Units 18:21 21:15 WBC (4.5-11.0) K/mm3 RBC (3.65-5.03) M/mm3 Hgb (10.1-14.3) gm/dl Hct (30.3-42.9) % MCV (79-97) fl MCH (28-32) pg MCHC (30-34) % RDW (13.2-15.2) % Plt Count (140-440) K/mm3 Lymph % (Auto) (13.4-35.0) % [place] % (Auto) (0.0-7.3) % Eos % (Auto) (0.0-4.3) % Baso % (Auto) (0.0-1.8) % Lymph # (Auto) (1.2-5.4) K/mm3 [place] # (Auto) (0.0-0.8) K/mm3 Eos # (Auto) (0.0-0.4) K/mm3 Baso # (Auto) (0.0-0.1) K/mm3 Seg Neutrophils % (40.0-70.0) % Seg Neutrophils # (1.8-7.7) K/mm3 PT (12.2-14.9) Sec. INR (0.87-1.13) APTT (24.2-36.6) Sec. Sodium (137-145) mmol/L Potassium (3.6-5.0) mmol/L Chloride (98-107) mmol/L Carbon Dioxide (22-30) mmol/L Anion Gap mmol/L BUN (7-17) mg/dL Creatinine (0.6-1.2) mg/dL Estimated GFR ml/min BUN/Creatinine Ratio % Glucose (65-100) mg/dL Calcium (8.4-10.2) mg/dL Total Bilirubin (0.1-1.2) mg/dL AST (5-40) units/L ALT (7-56) units/L Alkaline Phosphatase (35-129) units/L Troponin T 0.039 H 0.047 H D (0.00-0.029) ng/mL Total Protein (6.3-8.2) g/dL Albumin (3.9-5) g/dL Albumin/Globulin Ratio % - EKG Data -: EKG Interpreted by Me EKG shows normal: sinus rhythm Rate: tachycardia - EKG Data 04/18/21 23:57 EKG interpreted at 17: 39 This is a sinus rhythm, atrial premature complexes, sinus rate 100 bpm, with a left axis deviation, left anterior fascicular block, right bundle branch block, motion artifact, interventricular conduction delay, QTC prolonged, 457 ms. Abnormal EKG. Not a STEMI. Appears to be grossly unchanged when compared to prior EKG from April 13, 2021, with the exception of resolution of extreme right axis deviation. - Radiology Data Radiology results: pending, report reviewed, image reviewed CHEST 2 VIEWS INDICATION / CLINICAL INFORMATION: Dyspnea. COMPARISON: 04/13/2021 FINDINGS: SUPPORT DEVICES: Pacemaker appears unchanged HEART / MEDIASTINUM: No significant abnormality. LUNGS / PLEURA: There are patchy parenchymal opacities noted in the lung bases. No pneumothorax. ADDITIONAL FINDINGS: No significant additional findings. IMPRESSION: 1. There are mild patchy parenchymal opacities in the lung bases which could represent atelectasis or evolving pneumonia. Signer Name: Vlad Henriquez MD Signed: 04/18/2021 5:55 PM Workstation Name: [id number] CHEST 1 VIEW INDICATION / CLINICAL INFORMATION: cough. COMPARISON: 03/15/2021 FINDINGS: SUPPORT DEVICES: Left-sided pacemaker HEART / MEDIASTINUM: No significant abnormality. LUNGS / PLEURA: Mild pulmonary vascular congestion No pneumothorax. ADDITIONAL FINDINGS: No significant additional findings. IMPRESSION: Mild pulmonary vascular congestion has developed since 03/15/2021. Signer Name: Chuck Brownlee MD FACR Signed: 04/13/2021 7:17 PM Workstation Name: [id number] [facility] [address] [place] [address] XRay Report Signed Patient: DANN STALLINGS MR#: [id number] : 1940 Acct:[id number] Age/Sex: 80 / F ADM Date: 04/18/21 Loc: ED Attending Dr: Ordering Physician: JAYDEN PEREZ MD Date of Service: 04/18/21 Procedure(s): XR pelvis 1-2V Accession Number(s): [id number] cc: JAYDEN PEREZ MD Fluoro Time In Minutes: Pelvis one view INDICATION: Fall FINDINGS: There is diffuse osteopenia throughout. Advanced degenerative change in lower lumbar spine. Question irregularity within the right superior pubic ramus suggesting possible fracture. Bilateral femoral necks very difficult to evaluate due to collar osteophyte and degenerative change within bilateral hips. IMPRESSION: 1. Right superior pubic rami fracture suggested. 2. Advanced degenerative change in bilateral hips. Moderate narrowing of the femoral head neck junction may be secondary to degenerative change however if there is high clinical concern a CT or MRI recommended. Signer Name: Arsen Molina MD Sign ed: 04/19/2021 12:09 AM Workstation Name: [id number] Transcribed By: CW Dictated By: FANNIE MOLINA MD Electronically Authenticated By: FANNIE MOLINA MD Signed Date/Time: 04/19/218 DD/ CT pelvis wo con INDICATION / CLINICAL INFORMATION: Post-fall, possible RIGHT Suprapubic Rami fracture. TECHNIQUE: Axial, coronal and sagittal images All CT scans at this location are performed using CT dose reduction for ALARA by means of automated exposure control. COMPARISON: None available. FINDINGS: Bilateral femoral heads well-seated in the acetabulum. There is advanced degenerative change bilateral hips and joint space narrowing. Degenerative osteophyte femoral head neck junction bilaterally. No displaced fracture. Irregularity seen and suggested on x-ray in the superior pubic ramus is not visualize and likely represents artifact from overlying gas. Degenerative changes seen throughout the spine and sacrum. IMPRESSION: 1. No acute fractures seen. Advanced degenerative change in bilateral hips and within the lower lumbar spine. 2. The questionable fracture right superior pubic ramus represents artifact. No fractures seen. Signer Name: Arsen Molina MD Signed: 04/19/2021 1:18 AM Workstation Name: [id number] CT HEAD WITHOUT CONTRAST INDICATION / CLINICAL INFORMATION: Post-fall, syncope, on Eliquis. TECHNIQUE: All CT scans at this location are performed using CT dose reduction for ALARA by means of automated exposure control. COMPARISON: June 2020 FINDINGS: No acute intracranial hemorrhage. Ventricles are normal in size without midline shift or mass effect. No extra-axial fluid collection is seen. Scattered areas of low-attenuation periventricular and central white matter suggesting nonspecific white matter change. ADDITIONAL FINDINGS: None. IMPRESSION: 1. No significant change since prior exam. Signer Name: Arsen Molina MD Signed: 04/19/2021 1:11 AM Workstation Name: [facility] CT cervical spine wo con INDICATION / CLINICAL INFORMATION: Post-fall, syncope, on Eliquis. TECHNIQUE: Axial, coronal and sagittal images All CT scans at this location are performed using CT dose reduction for ALARA by means of automated exposure control. COMPARISON: None available. FINDINGS: Cervical spine alignment appears normal. Facets are well aligned throughout. Endplate changes with small anterior posterior disc osteophytes throughout. Odontoid appears normal. No prevertebral soft tissue swelling. No acute fracture. IMPRESSION: 1. Discogenic degenerative changes seen throughout spine. No acute fractures seen. Disc osteophytes at C5-C6 and C6-C7. Signer Name: Arsen Molina MD Signed: 04/19/2021 1:12 AM Workstation Name: [id number] Critical care attestation.: If time is entered above; I have spent that time in minutes in the direct care of this critically ill patient, excluding procedure time. ED Disposition Clinical Impression: COPD exacerbation, Syncope, Chronic anemia, Fall Disposition: 09 OP ADMIT IP TO THIS HOSP Is pt being admited?: Yes Does the pt Need Aspirin: No Condition: Good
[2021-04-18] MEDS ORDERED: ALBUTEROL 2.5 MG/3 ML NEBU IH ONE (23:27)
[2021-04-18] MEDS ORDERED: IPRATROPIUM 0.02% NEBU 2.5 ML IH ONE (23:27)
[2021-04-18] MEDS ORDERED: methylPREDNISolone Sod Succinate 125 MG/2 ML INJ IV ONE (23:27)
[2021-04-18] MEDS ORDERED: FUROSEMIDE 40 MG/4 ML INJ IV ONE (23:28)
[2021-04-18] MEDS ORDERED: DOXYCYCLINE 100 MG CAP PO ONE (23:28)
[2021-04-18] MEDS ORDERED: levoFLOXacin 750 MG TAB PO ONE (23:51)
[2021-04-18] MEDS ORDERED: ACETAMINOPHEN 325 MG TAB PO STA (23:57)
--- NOTE | 2021-04-19 00:14 | XRay Report ---
Pelvis one view INDICATION: Fall FINDINGS: There is diffuse osteopenia throughout. Advanced degenerative change in lower lumbar spine. Question irregularity within the right superior pubic ramus suggesting possible fracture. Bilateral femoral necks very difficult to evaluate due to collar osteophyte and degenerative change within bila teral hips. IMPRESSION: 1. Right superior pubic rami fracture suggested. 2. Advanced degenerative change in bilateral hips. Moderate narrowing of the femoral head neck juncti on may be secondary to degenerative change however if there is high clinical concern a CT or MRI jane mmended. Signer Name: Arsen Molina MD Signed: 04/19/2021 12:09 AM Workstation Name: [id number]
--- NOTE | 2021-04-19 02:16 | Cat Scan Report ---
CT HEAD WITHOUT CONTRAST INDICATION / CLINICAL INFORMATION: Post-fall, syncope, on Eliquis. TECHNIQUE: All CT scans at this location are performed using CT dose reduction for ALARA by means of automated e xposure control. COMPARISON: June 2020 FINDINGS: No acute intracranial hemorrhage. Ventricles are normal in size without midline shift or mass effect. No extra-axial fluid collection is seen. Scattered areas of low-attenuation periventricular and cent ral white matter suggesting nonspecific white matter change. ADDITIONAL FINDINGS: None. IMPRESSION: 1. No significant change since prior exam. Signer Name: Arsen Molina MD Signed: 04/19/2021 2:11 AM Workstation Name: [email or web address] [id number]
--- NOTE | 2021-04-19 02:17 | Cat Scan Report ---
CT cervical spine wo con INDICATION / CLINICAL INFORMATION: Post-fall, syncope, on Eliquis. TECHNIQUE: Axial, coronal and sagittal images All CT scans at this location are performed using CT dose reductio n for ALARA by means of automated exposure control. COMPARISON: None available. FINDINGS: Cervical spine alignment appears normal. Facets are well aligned throughout. Endplate changes with sm all anterior posterior disc osteophytes throughout. Odontoid appears normal. No prevertebral soft tis arnoldo swelling. No acute fracture. IMPRESSION: 1. Discogenic degenerative changes seen throughout spine. No acute fractures seen. Disc osteophytes a t C5-C6 and C6-C7. Signer Name: Arsen Molina MD Signed: 04/19/2021 2:12 AM Workstation Name: [id number]
--- NOTE | 2021-04-19 02:23 | Cat Scan Report ---
CT pelvis wo con INDICATION / CLINICAL INFORMATION: Post-fall, possible RIGHT Suprapubic Rami fracture. TECHNIQUE: Axial, coronal and sagittal images All CT scans at this location are performed using CT dose reductio n for ALARA by means of automated exposure control. COMPARISON: None available. FINDINGS: Bilateral femoral heads well-seated in the acetabulum. There is advanced degenerative change bilatera l hips and joint space narrowing. Degenerative osteophyte femoral head neck junction bilaterally. No displaced fracture. Irregularity seen and suggested on x-ray in the superior pubic ramus is not visualize and likely repr esents artifact from overlying gas. Degenerative changes seen throughout the spine and sacrum. IMPRESSION: 1. No acute fractures seen. Advanced degenerative change in bilateral hips and within the lower lumba r spine. 2. The questionable fracture right superior pubic ramus represents artifact. No fractures seen. Signer Name: Arsen Molina MD Signed: 04/19/2021 2:18 AM Workstation Name: [id number]
[2021-04-19] MEDS ORDERED: ONDANSETRON 4 MG/2 ML INJ IV PRN (03:27)
[2021-04-19] MEDS ORDERED: MORPHINE 2 MG/1 ML INJ IV PRN (03:27)
[2021-04-19] MEDS ORDERED: ACETAMINOPHEN 325 MG TAB PO PRN (03:27)
--- NOTE | 2021-04-19 03:41 | History and Physical Report ---
History of Present Illness Date of examination: 04/19/21 Date of admission: 04/19/2021 Chief complaint: Shortness of breath History of present illness: 80-year-old -Congolese female with known history of COPD, chronic respiratory failure on home oxygen hypertension, CHF with ejection fraction of 50 to 55%, coronary artery disease and history of dual-chamber permanent pacemaker presents to the emergency room today complaining of shortness of breath and wheezing. She has had some mild cough productive with some mucus. She indicates that she had a syncopal episode and a brief loss of consciousness while in the bathroom today. She denies any head injury and denies any headache. She denies frequent falls. Patient denies any blurry vision and no neck pain. She denies any fever or chills, no nausea or vomiting and no diarrhea. Denies any sick contacts and no recent travel. She has received a Covid vaccination. Work-up in the emergency room today, chest x-ray shows mild patchy parenchymal opacities in the lung bases which could represent atelectasis or evolving pneumonia. CT scan of C-spine shows degenerative changes. CT of the head shows no acute changes. Pelvic x-ray shows possible right superior pubic rami fracture. Advanced degenerative changes in bilateral hips. Labs are significant for elevated troponin. Patient is being admitted for syncope, pneumonia, COPD exacerbation and elevated troponin. Past History Past Medical History: acute [place], arthritis, COPD, heart failure, hypertension, r enal failure, stroke (X2), other (Chronic bronchitis) Past Surgical History: hysterectomy, Other (Pacemaker placement, right knee surgery, cataract removal in both eyes.) Social history: no significant social history Family history: no significant family history Medications and Allergies Allergies Allergy/AdvReac Type Severity Reaction Status Date / Time aspirin Allergy Hives Verified 03/15/21 13:33 Penicillins Allergy Hives Verified 03/15/21 13:33 Sulfa (Sulfonamide Allergy Hives Verified 03/15/21 13:33 Antibiotics) Home Medications Medication Instructions Recorded Confirmed Last Taken Type ALBUTEROL Inhaler(NF) [VENTOLIN 2 puff IH Q4H PRN #1 inha 11/01/18 03/16/21 08/07/19 Rx Inhaler(NF)] Famotidine [Pepcid] 20 mg PO DAILY #30 tablet 11/01/18 03/16/21 08/07/19 Rx Mirtazapine [Remeron 30mg TAB] 30 mg PO QHS PRN #30 tablet 11/01/18 03/16/21 08/07/19 Rx Budesonide/Formoterol Fumarate 2 puff IH DAILY #1 hfa.aer.ad 03/12/21 03/16/21 Unknown Rx [Symbicort 160-4.5 Mcg Inhaler] Ipratropium/Albuterol Sulfate 1 ampul IH QIDRT #120 ampul.neb 03/12/21 03/16/21 Unknown Rx [DUONEB *Not for PRN Use*] Apixaban [Eliquis] 5 mg PO Q12HR #60 tablet 03/19/21 Unknown Rx Arformoterol Nebu [Brovana Nebu] 15 mcg IH Q12HRT #30 ml 03/19/21 Unknown Rx Budesonide [Pulmicort Respules] 0.5 mg IH Q12HRT #30 nebu 03/19/21 Unknown Rx levoFLOXacin [Levaquin TAB] 500 mg PO Q48H #3 tablet 03/19/21 Unknown Rx predniSONE [Deltasone] 20 mg PO QDAY #60 tab 03/19/21 Unknown Rx Active Meds: Active Medications Acetaminophen (Acetaminophen 325 Mg Tab) 650 mg PO Q4H PRN PRN Reason: Pain MILD(1-3)/Fever >100.5/THORNTON Albuterol/Ipratropium (Ipratropium/Albuterol Sulfate 3 Ml Ampul.Neb) 1 ampul IH Q4HRT MANE Levofloxacin/Dextrose (Levaquin 750mg/150ml) 750 mg in 150 mls @ 100 mls/hr IV Q24H MANE; Protocol Magnesium Hydroxide (Magnesium Hydroxide (Mom) Oral Liqd Udc) 30 ml PO Q4H PRN PRN Reason: Constipation Methylprednisolone Sodium Succinate (Methylprednisolone Sod Succinate 40 Mg/1 Ml Inj) 40 mg IV Q8HR MANE Morphine Sulfate (Morphine 2 Mg/1 Ml Inj) 2 mg IV Q4H PRN PRN Reason: Pain, Moderate (4-6) Ondansetron HCl (Ondansetron 4 Mg/2 Ml Inj) 4 mg IV Q8H PRN PRN Reason: Nausea And Vomiting Sodium Chloride (Sodium Chloride 0.9% 10 Ml Flush Syringe) 10 ml IV BID MANE Sodium Chloride (Sodium Chloride 0.9% 10 Ml Flush Syringe) 10 ml IV PRN PRN PRN Reason: LINE FLUSH Review of Systems Constitutional: no fever, no chills Ears, nose, mouth and throat: no nasal congestion, no sore throat Cardiovascular: no chest pain, no palpitations Respiratory: shortness of breath, wheezing, no cough Gastrointestinal: no abdominal pain, no nausea, no vomiting, no diarrhea Genitourinary Female: no flank pain, no dysuria, no hematuria Musculoskeletal: no neck pain, no low back pain Integumentary: no rash, no pruritis Neurological: syncope, no headaches, no confusion Psychiatric: no anxiety, no depression Endocrine: no polyphagia, no polydipsia, no polyuria Exam - Constitutional Vitals: Temp Pulse Resp BP Pulse Ox 99.1 F 106 H 27 H 111/64 95 04/18/21 17:26 04/19/21 00:52 04/19/21 00:52 04/19/21 00:52 04/19/21 00:52 General appearance: Present: no acute distress, well-nourished - EENT Eyes: Present: PERRL, EOM intact. Absent: scleral icterus ENT: hearing intact, clear oral mucosa, dentition normal - Neck Neck: Present: supple, normal ROM - Respiratory Respiratory effort: normal Respiratory: bilateral: wheezing (Few scattered wheezes bilaterally) - Cardiovascular Rhythm: regular Heart Sounds: Present: S1 & S2. Absent: gallop, systolic murmur, diastolic murmur, rub, click - Extremities Extremities: no ischemia, pulses intact, pulses symmetrical, No edema, normal temperature, normal color, Full ROM Peripheral Pulses: within normal limits - Abdominal General gastrointestinal: Present: soft, non-tender, non-distended, normal bowel sounds. Absent: mass - Integumentary Integumentary: Present: clear, warm, dry. Absent: rash - Musculoskeletal Musculoskeletal: strength equal bilaterally - Psychiatric Psychiatric: appropriate mood/affect, intact judgment & insight, memory intact, cooperative - Neurologic Neurologic: CNII-XII intact, no focal deficits, moves all extremities HEART Score - HEART Score Troponin: Troponin T 0.047 ng/mL (0.00-0.029) H D 04/18/21 21:15 Results - Labs CBC & Chem 7: 04/18/21 18:21 04/18/21 18:21 Labs: Abnormal lab results 04/18/21 04/18/21 04/18/21 Range/Units 18:21 18:21 18:21 RBC 3.06 L (3.65-5.03) M/mm3 Hgb 8.6 L (10.1-14.3) gm/dl Hct 27.1 L (30.3-42.9) % RDW 17.3 H (13.2-15.2) % [place] % (Auto) 10.6 H (0.0-7.3) % Lymph # (Auto) 0.9 L (1.2-5.4) K/mm3 Seg Neutrophils % 72.7 H (40.0-70.0) % Carbon Dioxide 33 H (22-30) mmol/L BUN 42 H (7-17) mg/dL Creatinine 3.4 H (0.6-1.2) mg/dL Glucose 112 H (65-100) mg/dL Troponin T 0.039 H (0.00-0.029) ng/mL Total Protein 6.0 L (6.3-8.2) g/dL Albumin 3.8 L (3.9-5) g/dL 04/18/21 Range/Units 21:15 RBC (3.65-5.03) M/mm3 Hgb (10.1-14.3) gm/dl Hct (30.3-42.9) % RDW (13.2-15.2) % [place] % (Auto) (0.0-7.3) % Lymph # (Auto) (1.2-5.4) K/mm3 Seg Neutrophils % (40.0-70.0) % Carbon Dioxide (22-30) mmol/L BUN (7-17) mg/dL Creatinine (0.6-1.2) mg/dL Glucose (65-100) mg/dL Troponin T 0.047 H D (0.00-0.029) ng/mL Total Protein (6.3-8.2) g/dL Albumin (3.9-5) g/dL Assessment and Plan - Patient Problems (1) COPD exacerbation Current Visit: Yes Status: Acute Plan to address problem: Patient placed on nebulizing treatments and IV steroid. We will keep O2 saturation greater or equal to 94%. (2) Syncope Current Visit: Yes Status: Acute Plan to address problem: Possibly vasovagal. We will schedule patient for echocardiogram and carotid Doppler. (3) Chronic respiratory failure Current Visit: No Status: Acute Qualifiers: Respiratory failure complication: hypoxia Qualified Code(s): J96.11 - Chronic respiratory failure with hypoxia Plan to address problem: Patient on home oxygen . We will monitor and keep oxygen saturation greater e qual to 94%. (4) HTN (hypertension) Current Visit: No Status: Acute Plan to address problem: We will resume routine home medications and monitor vital signs closely. (5) Pneumonia Current Visit: No Status: Acute Plan to address problem: Patient placed on empiric IV antibiotics. Will await culture results. (6) Elevated troponin Current Visit: Yes Status: Acute Plan to address problem: Possibly related to the chronic kidney disease. Patient denies any chest pain. We will trend cardiac enzymes. We will resume routine home medications and place a consult to cardiology for evaluation and recommendations. (7) DVT prophylaxis Current Visit: No Status: Acute Plan to address problem: Patient currently on anticoagulation. (8) Full code status Current Visit: No Status: Acute Plan to address problem: Patient is full code.
[2021-04-19 04:27] LABS: Bacteria,Urine 1+ /HPF (Negative); Bilirubin,Urine NEG (Negative); Blood,Urine NEG (Negative); Color,Urine Yellow (Yellow); Mucus,Urine FEW /HPF; Urobilinogen,Urine < 2.0 mg/dL (<2.0)
[2021-04-19] MEDS: methylPREDNISolone Sod Succinate 40 MG/1 ML INJ IV SCH ×4 (07:05→21:31)
[2021-04-19] MEDS: HYDROmorphone 1 MG/1 ML INJ IV PRN ×3 (08:55→17:10)
[2021-04-19] MEDS: IPRATROPIUM/ALBUTEROL SULFATE 3 ML AMPUL.NEB IH SCH ×4 (08:57→19:55)
[2021-04-19] MEDS ORDERED: ALBUTEROL 2.5 MG/3 ML NEBU IH PRN (09:30)
--- NOTE | 2021-04-19 10:26 | Consultation ---
History of Present Illness Consult date: 04/19/21 Consult reason: elevated troponin History of present illness: The patient is an 80-year-old woman with a history of longstanding COPD, on ambulatory oxygen. She has had multiple recent admissions for COPD exacerbation due to bronchitis. She presents to the hospital at this time with several days of increasing cough, productive of sputum. There was no chest pain, but she did have a brief syncope, which is unable to characterize, but appear to have occurred following a protracted coughing spell. ECG in the emergency room showed a sinus rhythm with frequent PACs versus multifocal atrial tachycardia. 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 Chest x-ray shows a normal-sized cardiac silhouette, changes of chronic lung disease, but no acute infiltrates or edema. A dual-chamber pacemaker is in situ. Cardiology consultation is requested for the finding of a borderline troponin of 0.03, unchanged on serial measurements. The patient's cardiac history is n otable for the dual-chamber pacemaker implanted for sinus node dysfunction. She also has at least moderate to severe pulmonary hypertension associated with her chronic lung disease. Otherwise, there is no history of coronary artery disease. A cardiac catheterization several years ago documented a ngiographically normal coronary arteries, and serial left ventricular function assessments have documented normal left ventricular systolic function. Patient is currently on the telemetry unit, looks and feels better, no acute distress. Her pacemaker is followed and interrogated regularly on a routine outpatient regimen. Past History Past Medical History: arrhythmia, arthritis, COPD, hypertension, renal failure, stroke (X2), other (Chronic bronchitis) Past Surgical History: hysterectomy, Other (Pacemaker placement, right knee surgery, cataract removal in both eyes.) Social history: no significant social history Family history: no significant family history Medications and Allergies Allergies Allergy/AdvReac Type Severity Reaction Status Date / Time aspirin Allergy Hives Verified 03/15/21 13:33 Penicillins Allergy Hives Verified 03/15/21 13:33 Sulfa (Sulfonamide Allergy Hives Verified 03/15/21 13:33 Antibiotics) Home Medications Medication Instructions Recorded Confirmed Last Taken Type ALBUTEROL Inhaler(NF) [VENTOLIN 2 puff IH Q4H PRN #1 inha 11/01/18 03/16/21 08/07/19 Rx Inhaler(NF)] Famotidine [Pepcid] 20 mg PO DAILY #30 tablet 11/01/18 03/16/21 08/07/19 Rx Mirtazapine [Remeron 30mg TAB] 30 mg PO QHS PRN #30 tablet 11/01/18 03/16/21 08/07/19 Rx Budesonide/Formoterol Fumarate 2 puff IH DAILY #1 hfa.aer.ad 03/12/21 03/16/21 Unknown Rx [Symbicort 160-4.5 Mcg Inhaler] Ipratropium/Albuterol Sulfate 1 ampul IH QIDRT #120 ampul.neb 03/12/21 03/16/21 Unknown Rx [DUONEB *Not for PRN Use*] Apixaban [Eliquis] 5 mg PO Q12HR #60 tablet 03/19/21 Unknown Rx Arformoterol Nebu [Brovana Nebu] 15 mcg IH Q12HRT #30 ml 03/19/21 Unknown Rx Budesonide [Pulmicort Respules] 0.5 mg IH Q12HRT #30 nebu 03/19/21 Unknown Rx levoFLOXacin [Levaquin TAB] 500 mg PO Q48H #3 tablet 03/19/21 Unknown Rx predniSONE [Deltasone] 20 mg PO QDAY #60 tab 03/19/21 Unknown Rx Active Meds: Active Medications Acetaminophen (Acetaminophen 325 Mg Tab) 650 mg PO Q4H PRN PRN Reason: Pain MILD(1-3)/Fever >100.5/THORNTON Albuterol (Albuterol 2.5 Mg/3 Ml Nebu) 2.5 mg IH Q4HRT PRN PRN Reason: Shortness Of Breath Albuterol/Ipratropium (Ipratropium/Albuterol Sulfate 3 Ml Ampul.Neb) 1 ampul IH TIDRT MANE Arformoterol Tartrate (Arformoterol 15 Mcg/2 Ml Nebu) 15 mcg IH Q12HRT MANE Budesonide (Budesonide 0.5 Mg/2 Ml Nebu) 0.5 mg IH Q12HRT MANE Hydromorphone HCl (Hydromorphone 1 Mg/1 Ml Inj) 0.2 mg IV Q4H PRN PRN Reason: Pain , moderate (4-6) Levofloxacin/Dextrose (Levaquin 500mg/100ml) 500 mg in 100 mls @ 66.667 mls/hr IV Q48H [facility]; Protocol Magnesium Hydroxide (Magnesium Hydroxide (Mom) Oral Liqd Udc) 30 ml PO Q4H PRN PRN Reason: Constipation Methylprednisolone Sodium Succinate (Methylprednisolone Sod Succinate 40 Mg/1 Ml Inj) 40 mg IV Q8HR [facility] Last Admin: 04/19/21 07:05 Dose: 40 mg Documented by: Ondansetron HCl (Ondansetron 4 Mg/2 Ml Inj) 4 mg IV Q8H PRN PRN Reason: Nausea And Vomiting Sodium Chloride (Sodium Chloride 0.9% 10 Ml Flush Syringe) 10 ml IV BID [facility] Last Admin: 04/19/21 09:30 Dose: 10 ml Documented by: Sodium Chloride (Sodium Chloride 0.9% 10 Ml Flush Syringe) 10 ml IV PRN PRN PRN Reason: LINE FLUSH Review of Systems Cardiovascular: syncope, shortness of breath, no chest pain, no orthopnea, no palpitations, no rapid/irregular heart beat, no edema, no lightheadedness Physical Examination Vital Signs Temp Pulse Resp BP Pulse Ox 99.1 F 91 H 18 121/64 100 04/18/21 17:26 04/18/21 17:26 04/18/21 17:26 04/18/21 17:26 04/18/21 17:26 General appearance: no acute distress HEENT: Positive: PERRL Neck: Positive: neck supple Cardiac: Positive: Irregularly Regular Lungs: Positive: Decreased Breath Sounds Neuro: Positive: Grossly Intact Abdomen: Positive: Soft Female genitourinary: deferred Skin: Positive: Clear Extremities: Absent: edema Results 04/18/21 18:21 04/18/21 18:21 Cardiac Enzymes 04/18/21 Range/Units 18: AST 10 (5-40) units/L Coagulation 04/18/21 Range/Units 18:21 PT 13.0 (12.2-14.9) Sec. INR 0.93 (0.87-1.13) APTT 24.4 (24.2-36.6) Sec. CBC 04/18/21 Range/Units 18: WBC 6.2 (4.5-11.0) K/mm3 RBC 3.06 L (3.65-5.03) M/mm3 Hgb 8.6 L (10.1-14.3) gm/dl Hct 27.1 L (30.3-42.9) % Plt Count 196 (140-440) K/mm3 Lymph # (Auto) 0.9 L (1.2-5.4) K/mm3 [place] # (Auto) 0.7 (0.0-0.8) K/mm3 Eos # (Auto) 0.1 (0.0-0.4) K/mm3 Baso # (Auto) 0.0 (0.0-0.1) K/mm3 Comprehensive Metabolic Panel 04/18/21 Range/Units 18:21 Sodium 143 (137-145) mmol/L Potassium 4.4 D (3.6-5.0) mmol/L Chloride 102.9 (98-107) mmol/L Carbon Dioxide 33 H (22-30) mmol/L BUN 42 H (7-17) mg/dL Creatinine 3.4 H (0.6-1.2) mg/dL Glucose 112 H (65-100) mg/dL Calcium 8.5 (8.4-10.2) mg/dL AST 10 (5-40) units/L ALT 8 (7-56) units/L Alkaline Phosphatase 59 (35-129) units/L Total Protein 6.0 L (6.3-8.2) g/dL Albumin 3.8 L (3.9-5) g/dL EKG interpretations - EKG Supraventricular dysrhythmia: multifocal atrial tachyca (With left anterior fascicular block and right bundle branch block) Assessment and Plan - Patient Problems (1) COPD exacerbation Current Visit: Yes Status: Acute Plan to address problem: Patient presents to the hospital with cough and shortness of breath, consistent with exacerbation of her chronic lung disease. (2) Syncope Current Visit: Yes Status: Acute Plan to address problem: Patient's described syncopal episode is poorly characterized, appears likely vagal. She has a dual chamber pacemaker in situ, followed routinely in the outpatient, if indicated we will request pacemaker interrogation at this time. Current cardiac rhythm is in sinus with frequent PACs versus a multifocal atrial rhythm. We will optimize therapy with a calcium channel soledad. Otherwise, conservative cardiac management.
--- NOTE | 2021-04-19 11:40 | Progress Note ---
Assessment and Plan Assessment and plan: --Acute exacerbation of COPD Current Visit: Yes Status: Acute Oxygen , nebulizers , IV steroids Pulmonary consult if needed Patient already has home oxygen --Elevated troponin/non-ST elevation [place] Current Visit: Yes Status: Acute Serial cardiac enzymes, serial EKG Cardiology evaluation recommendations noted and appreciated Nonspecific probably secondary to chronic kidney disease. --Chronic kidney disease; stage IV Current Visit: Yes Status: Chronic Monitor renal function. Avoid nephrotoxin. Nephrology consult if needed -- Syncope/probably autonomic imbalance Current Visit: Yes Status: Acute Possibly vasovagal. Fall precautions Syncope work-up with CT head without contrast, echocardiogram, carotid Doppler PT OT if needed --Acute on chronic respiratory failure Current Visit: No Status: Acute Patient is on home oxygen . We will monitor and keep oxygen saturation greater equal to 94%. -- HTN (hypertension) Current Visit: No Status: Acute We will resume routine home medications and monitor vital signs closely. --History of PE; Current Visit: No Status: Acute . continue Eliquis Continue oxygen titrate O2 sats to more than 90 -- Pneumonia Current Visit: No Status: Acute Patient placed on empiric IV antibiotics. Will await culture results. --History of PPM in place continue to monitor, interrogation if needed Defer to cardiology -- DVT prophylaxis Current Visit: No Status: Acute Patient currently on anticoagulation. -- Full code status Current Visit: No Status: Acute Patient is full code. Closely monitor the patient and adjust management as needed Follow cardiology evaluation and recommendation Consider pulmonary if no improvement Plan of care reviewed with the patient and her nurse History Interval history: I have seen and examined the patient at the bedside Patient's chart and medications reviewed Patient has complaints of mild shortness of breath and generalized weakness Vital signs reviewed Hospitalist Physical - Constitutional Vitals: Temp Pulse Resp BP Pulse Ox 98.4 F 109 H 16 132/58 98 04/19/21 05:59 04/19/21 11:10 04/19/21 08:57 04/19/21 05:59 04/19/21 09:08 General appearance: Present: mild distress, well-nourished - EENT Eyes: Present: PERRL, EOM intact - Neck Neck: Present: supple, normal ROM - Respiratory Respiratory effort: normal Respiratory: bilateral: diminished, rhonchi, negative: rales, wheezing - Cardiovascular Rhythm: regular Heart Sounds: Present: S1 & S2 - Extremities Extremities: no ischemia, No edema - Abdominal General gastrointestinal: soft, non-tender, non-distended, normal bowel sounds - Integumentary Integumentary: Present: clear, warm - Psychiatric Psychiatric: appropriate mood/affect, cooperative - Neurologic Neurologic: CNII-XII intact, moves all extremities HEART Score - HEART Score Troponin: Troponin T 0.047 ng/mL (0.00-0.029) H D 04/18/21 21:15 Results - Labs CBC & Chem 7: 04/19/21 14:06 04/19/21 14:06 Labs: Laboratory Last Values WBC 6.2 K/mm3 (4.5-11.0) 04/18/21 18: RBC 3.06 M/mm3 (3.65-5.03) L 04/18/21 18:21 Hgb 8.6 gm/dl (10.1-14.3) L 04/18/21 18: Hct 27.1 % (30.3-42.9) L 04/18/21 18:21 MCV 88 fl (79-97) 04/18/21 18:21 MCH 28 pg (28-32) 04/18/21 18:21 MCHC 32 % (30-34) 04/18/21 18:21 RDW 17.3 % (13.2-15.2) H 04/18/21 18:21 Plt Count 196 K/mm3 (140-440) 04/18/21 18:21 Lymph % (Auto) 14.6 % (13.4-35.0) 04/18/21 18:21 [place] % (Auto) 10.6 % (0.0-7.3) H 04/18/21 18:21 Eos % (Auto) 1.9 % (0.0-4.3) 04/18/21 18:21 Baso % (Auto) 0.2 % (0.0-1.8) 04/18/21 18:21 Lymph # (Auto) 0.9 K/mm3 (1.2-5.4) L 04/18/21 18:21 [place] # (Auto) 0.7 K/mm3 (0.0-0.8) 04/18/21 18:21 Eos # (Auto) 0.1 K/mm3 (0.0-0.4) 04/18/21 18:21 Baso # (Auto) 0.0 K/mm3 (0.0-0.1) 04/18/21 18:21 Seg Neutrophils % 72.7 % (40.0-70.0) H 04/18/21 18:21 Seg Neutrophils # 4.5 K/mm3 (1.8-7.7) 04/18/21 18:21 PT 13.0 Sec. (12.2-14.9) 04/18/21 18:21 INR 0.93 (0.87-1.13) 04/18/21 18:21 APTT 24.4 Sec. (24.2-36.6) 04/18/21 18:21 Sodium 143 mmol/L (137-145) 04/18/21 18:21 Potassium 4.4 mmol/L (3.6-5.0) D 04/18/21 18:21 Chloride 102.9 mmol/L (98-107) 04/18/21 18:21 Carbon Dioxide 33 mmol/L (22-30) H 04/18/21 18:21 Anion Gap 12 mmol/L 04/18/21 18:21 BUN 42 mg/dL (7-17) H 04/18/21 18:21 Creatinine 3.4 mg/dL (0.6-1.2) H 04/18/21 18:21 Estimated GFR 16 ml/min 04/18/21 18:21 BUN/Creatinine Ratio 12 % 04/18/21 18:21 Glucose 112 mg/dL (65-100) H 04/18/21 18:21 Lactic Acid 1.00 mmol/L (0.7-2.0) 04/19/21 00:09 Calcium 8.5 mg/dL (8.4-10.2) 04/18/21 18: Magnesium 1.80 mg/dL (1.7-2.3) 04/19/21 00:09 Total Bilirubin 0.20 mg/dL (0.1-1.2) 04/18/21 18:21 AST 10 units/L (5-40) 04/18/21 18:21 ALT 8 units/L (7-56) 04/18/21 18:21 Alkaline Phosphatase 59 units/L (35-129) 04/18/21 18:21 Total Creatine Kinase 34 units/L (30-135) 04/19/21 00:09 Troponin T 0.047 ng/mL (0.00-0.029) H D 04/18/21 21:15 NT-Pro-B Natriuret Pep 684.9 pg/mL (0-900) 04/19/21 00:09 Total Protein 6.0 g/dL (6.3-8.2) L 04/18/21 18:21 Albumin 3.8 g/dL (3.9-5) L 04/18/21 18:21 Albumin/Globulin Ratio 1.7 % 04/18/21 18:21 TSH 1.730 mlU/mL (0.270-4.200) 04/19/21 00:09 Urine Color Yellow (Yellow) 04/19/21 04:08 Urine Turbidity Hazy (Clear) 04/19/21 04:08 Urine pH 5.0 (5.0-7.0) 04/19/21 04:08 Ur Specific [place] 1.013 (1.003-1.030) 04/19/21 04:08 Urine Protein 30 mg/dl mg/dL (Negative) 04/19/21 04:08 Urine Glucose (UA) Neg mg/dL (Negative) 04/19/21 04:08 Urine Ketones Neg mg/dL (Negative) 04/19/21 04:08 Urine Blood Neg (Negative) 04/19/21 04:08 Urine Nitrite Neg (Negative) 04/19/21 04:08 Urine Bilirubin Neg (Negative) 04/19/21 04:08 Urine Urobilinogen < 2.0 mg/dL (<2.0) 04/19/21 04:08 Ur Leukocyte Esterase Sm (Negative) 04/19/21 04:08 Urine WBC (Auto) 6.0 /HPF (0.0-6.0) 04/19/21 04:08 Urine RBC (Auto) 4.0 /HPF (0.0-6.0) 04/19/21 04:08 U Epithel Cells (Auto) 8.0 /HPF (0-13.0) 04/19/21 04:08 Urine Bacteria (Auto) 1+ /HPF (Negative) 04/19/21 04:08 Urine Mucus Few /HPF 04/19/21 04:08 Urine Yeast (Budding) Few /HPF 04/19/21 04:08 Microbiology: Microbiology 04/19/21 00:09 Peripheral/Venous Blood Culture - Preliminary Culture in Progress 04/19/21 00:01 Peripheral/Venous Blood Culture - Preliminary Culture in Progress Herrera/IV: Voiding Method External Female Catheter Active Medications - Current Medications Current Medications: Generic Name Dose Route Start Last Admin Trade Name Freq PRN Reason Stop Dose Admin Acetaminophen 650 mg 04/19/21 03:27 Acetaminophen 325 Mg Tab PO Q4H PRN Pain MILD(1-3)/Fever >100.5/THORNTON Albuterol 2.5 mg 04/19/21 09:30 Albuterol 2.5 Mg/3 Ml Nebu IH Q4HRT PRN Shortness Of Breath Albuterol/Ipratropium 1 ampul 04/19/21 14:00 Ipratropium/Albuterol Sulfate 3 Ml Ampul.Neb IH TIDRT [facility] Apixaban 5 mg 04/19/21 22:00 Apixaban 5 Mg Tab PO Q12HR [facility] Protocol Arformoterol Tartrate 15 mcg 04/19/21 20:00 Arformoterol 15 Mcg/2 Ml Nebu IH Q12HRT MANE Budesonide 0.5 mg 04/19/21 20:00 Budesonide 0.5 Mg/2 Ml Nebu IH Q12HRT [facility] Diltiazem HCl 180 mg 04/19/21 11:00 Diltiazem Cd 180 Mg Cap PO QDAY MANE Hydromorphone HCl 0.2 mg 04/19/21 04:22 Hydromorphone 1 Mg/1 Ml Inj IV Q4H PRN Pain , moderate (4-6) Levofloxacin/Dextrose 500 mg in 100 mls @ 66.667 mls/hr 04/21/21 04:00 Levaquin 500mg/100ml IV Q48H [facility] Protocol Magnesium Hydroxide 30 ml 04/19/21 03:27 Magnesium Hydroxide (Mom) Oral Liqd Udc PO Q4H PRN Constipation Methylprednisolone Sodium Succinate 40 mg 04/19/21 06:00 04/19/21 07:05 Methylprednisolone Sod Succinate 40 Mg/1 Ml Inj IV 40 mg Q8HR [facility] Administration Ondansetron HCl 4 mg 04/19/21 03:27 Ondansetron 4 Mg/2 Ml Inj IV Q8H PRN Nausea And Vomiting Sodium Chloride 10 ml 04/19/21 10:00 04/19/21 09:30 Sodium Chloride 0.9% 10 Ml Flush Syringe IV 10 ml BID MANE Administration Sodium Chloride 10 ml 04/19/21 03:27 Sodium Chloride 0.9% 10 Ml Flush Syringe IV PRN PRN LINE FLUSH
--- NOTE | 2021-04-19 12:21 | Vascular Lab Report ---
DUPLEX DOPPLER ULTRASOUND CAROTID, BILATERAL INDICATION / CLINICAL INFORMATION: Syncope. COMPARISON: Carotid Doppler 07/07/2020. FINDINGS: RIGHT CAROTID: Small amount of calcified atherosclerotic plaque visualized within the distal CCA and bulb. - PLAQUE ESTIMATE (%): < 50% - CCA velocity: 67 cm/sec. - ICA peak systolic velocity: 105 cm/sec. - ICA/CCA PSV Ratio: Less than 2. Right Vertebral Artery: Antegrade flow. LEFT CAROTID: Small amount of calcified atherosclerotic plaque visualized within the bulb extending i nto proximal ICA. - PLAQUE ESTIMATE (%): < 50% - CCA velocity: 82 cm/sec. - ICA peak systolic velocity: 121 cm/sec. - ICA/CCA PSV Ratio: Less than 2. Left Vertebral Artery: Antegrade flow. IMPRESSION: 1. Right Internal Carotid Artery: Less than 50% diameter stenosis. 2. Left Internal Carotid Artery: Less than 50% diameter stenosis. Velocity criteria are extrapolated from diameter data as defined by the Society of Radiologists in Ul trasound Consensus Conference, Radiology 2003; 229;340-346. NO STENOSIS (NORMAL) - Plaque = none; ICA PSV < 125 cm/sec; ICA/CCA PSV Ratio < 2.0 <50% STENOSIS - Plaque < 50%; ICA PSV < 125 cm/sec; ICA/CCA PSV Ratio < 2.0 50-69% STENOSIS - Plaque > 50%; ICA PSV = 125-230 cm/sec; ICA/CCA PSV Ratio = 2.0-4.0 >70% BUT <100% STENOSIS - Plaque > 50%; ICA PSV > 230 cm/sec; ICA/CCA PSV Ratio > 4.0 NEAR OCCLUSION - Plaque = visible lumen; ICA PSV = high/low/none; ICA/CCA PSV Ratio = variable TOTAL OCCLUSION - Plaque = no lumen; ICA PSV = none; ICA/CCA PSV Ratio = N/A Scribed by: Hellen Sánchez RDMS, RVT Scribed: 04/19/2021 11:15 AM I have reviewed the images, agree with this report, and edited this report as needed. Signer Name: Jules Mosqueda MD Signed: 04/19/2021 12:16 PM Workstation Name: [id number]
[2021-04-19] MEDS: dilTIAZem CD 180 MG CAP PO SCH (12:27)
[2021-04-19 14:30] LABS: Hematocrit 24.9 % (30.3-42.9); Hemoglobin 8.3 gm/dl (10.1-14.3); Mean Corpuscular HGB Conc 33 % (30-34); Mean Corpuscular Volume 87 fl (79-97); Platelet Count 179 K/mm3 (140-440); Red Blood Count 2.87 M/mm3 (3.65-5.03); Red Cell Distribution Width 16.9 % (13.2-15.2)
[2021-04-19 14:43] LABS: Partial Thromboplastin Time 25.6 Sec. (24.2-36.6)
[2021-04-19] MEDS: BUDESONIDE 0.5 MG/2 ML NEBU IH SCH (19:55)
[2021-04-19] MEDS: ARFORMOTEROL 15 MCG/2 ML NEBU IH SCH (19:55)
[2021-04-19] MEDS: APIXABAN 5 MG TAB PO SCH (21:31)
[2021-04-20 05:30] LABS: Hematocrit 24.3 % (30.3-42.9); Hemoglobin 7.9 gm/dl (10.1-14.3); Mean Corpuscular HGB Conc 33 % (30-34); Mean Corpuscular Volume 87 fl (79-97); Platelet Count 216 K/mm3 (140-440); Red Cell Distribution Width 17.2 % (13.2-15.2)
[2021-04-20 05:48] LABS: INR 1.28 (0.87-1.13)
[2021-04-20 06:09] LABS: Calcium 8.2 mg/dL (8.4-10.2)
[2021-04-20] MEDS: methylPREDNISolone Sod Succinate 40 MG/1 ML INJ IV SCH ×3 (06:24→21:14)
[2021-04-20 08:47] LABS: Anisocytosis 1+; Platelet Estimate Consistent w Auto; Total Cells Counted 100
[2021-04-20] MEDS: BUDESONIDE 0.5 MG/2 ML NEBU IH SCH ×2 (08:50→20:10)
[2021-04-20] MEDS: IPRATROPIUM/ALBUTEROL SULFATE 3 ML AMPUL.NEB IH SCH ×4 (08:50→20:50)
[2021-04-20] MEDS: ARFORMOTEROL 15 MCG/2 ML NEBU IH SCH ×2 (08:50→20:10)
--- NOTE | 2021-04-20 09:55 | Progress Note ---
Assessment and Plan Assessment and plan: --Constipation; milk of magnesia 1 dose now, and daily as needed for constipation --Acute exacerbation of COPD Current Visit: Yes Status: Acute Oxygen , nebulizers , IV steroids Pulmonary consult if needed Patient already has home oxygen --Elevated troponin/non-ST elevation [place] Current Visit: Yes Status: Acute Serial cardiac enzymes, serial EKG Cardiology evaluation recommendations noted and appreciated Nonspecific probably secondary to chronic kidney disease. --Chronic kidney disease; stage IV Current Visit: Yes Status: Chronic Monitor renal function. Avoid nephrotoxin. Nephrology consult if needed -- Syncope/probably autonomic imbalance Current Visit: Yes Status: Acute Possibly vasovagal. Fall precautions Syncope work-up with CT head without contrast, echocardiogram, carotid Doppler PT OT if needed --Acute on chronic respiratory failure Current Visit: No Status: Acute Patient is on home oxygen . We will monitor and keep oxygen saturation greater equal to 94%. -- HTN (hypertension) Current Visit: No Status: Acute We will resume routine home medications and monitor vital signs closely. --History of PE; Current Visit: No Status: Acute . continue Eliquis Continue oxygen titrate O2 sats to more than 90 --Community acquired pneumonia Current Visit: No Status: Acute Patient placed on empiric IV antibiotics. Will await culture results. --History of PPM in place continue to monitor, interrogation if needed Defer to cardiology -- DVT prophylaxis Current Visit: No Status: Acute Patient currently on anticoagulation. -- Full code status Current Visit: No Status: Acute Patient is full code. Closely monitor the patient and adjust management as needed Follow cardiology evaluation and recommendation Consider pulmonary if no improvement Plan of care reviewed with the patient and her nurse History Interval history: Patient complains of constipation of 4 to 5 days Advised milk of magnesia 1 dose daily as needed constipation No other complaints Vital signs reviewed Hospitalist Physical - Constitutional Vitals: Temp Pulse Resp BP Pulse Ox 98.2 F 97 H 18 118/66 90 04/20/21 07:28 04/20/21 07:28 04/20/21 07:28 04/20/21 07:28 04/20/21 07:28 General appearance: Present: no acute distress, well-nourished - EENT Eyes: Present: PERRL, EOM intact - Neck Neck: Present: supple, normal ROM - Respiratory Respiratory effort: normal Respiratory: bilateral: diminished, negative: rales, rhonchi, wheezing - Cardiovascular Rhythm: regular Heart Sounds: Present: S1 & S2 - Extremities Extremities: no ischemia, No edema - Abdominal General gastrointestinal: soft, non-tender, non-distended, normal bowel sounds - Integumentary Integumentary: Present: clear, warm - Psychiatric Psychiatric: appropriate mood/affect, other (Confused at times) HEART Score - HEART Score Troponin: Troponin T 0.047 ng/mL (0.00-0.029) H D 04/18/21 21:15 Results - Labs CBC & Chem 7: 04/21/21 04:08 04/21/21 04:08 Labs: Laboratory Last Values WBC 9.8 K/mm3 (4.5-11.0) 04/20/21 04:36 RBC 2.80 M/mm3 (3.65-5.03) L 04/20/21 04:36 Hgb 7.9 gm/dl (10.1-14.3) L 04/20/21 04:36 Hct 24.3 % (30.3-42.9) L 04/20/21 04:36 MCV 87 fl (79-97) 04/20/21 04:36 MCH 28 pg (28-32) 04/20/21 04:36 MCHC 33 % (30-34) 04/20/21 04:36 RDW 17.2 % (13.2-15.2) H 04/20/21 04:36 Plt Count 216 K/mm3 (140-440) 04/20/21 04:36 Lymph % (Auto) 14.6 % (13.4-35.0) 04/18/21 18:21 [place] % (Auto) 10.6 % (0.0-7.3) H 04/18/21 18:21 Eos % (Auto) 1.9 % (0.0-4.3) 04/18/21 18:21 Baso % (Auto) 0.2 % (0.0-1.8) 04/18/21 18:21 Lymph # (Auto) 0.9 K/mm3 (1.2-5.4) L 04/18/21 18:21 [place] # (Auto) 0.7 K/mm3 (0.0-0.8) 04/18/21 18:21 Eos # (Auto) 0.1 K/mm3 (0.0-0.4) 04/18/21 18:21 Baso # (Auto) 0.0 K/mm3 (0.0-0.1) 04/18/21 18:21 Add Manual Diff Complete 04/20/21 04:36 Total Counted 100 04/20/21 04:36 Seg Neutrophils % Gun Profiler 04/20/21 04:36 Seg Neuts % (Manual) 97.0 % (40.0-70.0) H 04/20/21 04:36 Lymphocytes % (Manual) 3.0 % (13.4-35.0) L 04/20/21 04:36 Nucleated RBC % Not Reportable 04/20/21 04:36 Seg Neutrophils # 4.5 K/mm3 (1.8-7.7) 04/18/21 18:21 Seg Neutrophils # Man 9.5 K/mm3 (1.8-7.7) H 04/20/21 04:36 Band Neutrophils # 0.0 K/mm3 04/20/21 04:36 Lymphocytes # (Manual) 0.3 K/mm3 (1.2-5.4) L 04/20/21 04:36 Abs React Lymphs (Man) 0.0 K/mm3 04/20/21 04:36 Monocytes # (Manual) 0.0 K/mm3 (0.0-0.8) 04/20/21 04:36 Eosinophils # (Manual) 0.0 K/mm3 (0.0-0.4) 04/20/21 04:36 Basophils # (Manual) 0.0 K/mm3 (0.0-0.1) 04/20/21 04:36 Metamyelocytes # 0.0 K/mm3 04/20/21 04:36 Myelocytes # 0.0 K/mm3 04/20/21 04:36 Promyelocytes # 0.0 K/mm3 04/20/21 04:36 Blast Cells # 0.0 K/mm3 04/20/21 04:36 WBC Morphology Not Reportable 04/20/21 04:36 Hypersegmented Neuts Not Reportable 04/20/21 04:36 Hyposegmented Neuts Not Reportable 04/20/21 04:36 Hypogranular Neuts Not Reportable 04/20/21 04:36 Smudge Cells Not Reportable 04/20/21 04:36 Toxic Granulation Not Reportable 04/20/21 04:36 Toxic Vacuolation Not Reportable 04/20/21 04:36 Dohle Bodies Not Reportable 04/20/21 04:36 Pelger-Huet Anomaly Not Reportable 04/20/21 04:36 Christopher Rods Not Reportable 04/20/21 04:36 Platelet Estimate Consistent w auto 04/20/21 04:36 Clumped Platelets Not Reportable 04/20/21 04:36 Plt Clumps, EDTA Not Reportable 04/20/21 04:36 Large Platelets Not Reportable 04/20/21 04:36 Giant Platelets Not Reportable 04/20/21 04:36 Platelet Satelliting Not Reportable 04/20/21 04:36 Plt Morphology Comment Not Reportable 04/20/21 04:36 RBC Morphology Not Reportable 04/20/21 04:36 Dimorphic RBCs Not Reportable 04/20/21 04:36 Polychromasia 1+ 04/20/21 04:36 Hypochromasia Not Reportable 04/20/21 04:36 Poikilocytosis Not Reportable 04/20/21 04:36 Anisocytosis 1+ 04/20/21 04:36 Microcytosis Not Reportable 04/20/21 04:36 Macrocytosis Not Reportable 04/20/21 04:36 Spherocytes Not Reportable 04/20/21 04:36 Pappenheimer Bodies Not Reportable 04/20/21 04:36 Sickle Cells Not Reportable 04/20/21 04:36 Target Cells Not Reportable 04/20/21 04:36 Tear Drop Cells Not Reportable 04/20/21 04:36 Ovalocytes Not Reportable 04/20/21 04:36 Helmet Cells Not Reportable 04/20/21 04:36 Shah-Merrifield Bodies Not Reportable 04/20/21 04:36 [place] Rings Not Reportable 04/20/21 04:36 Yoni Cells Not Reportable 04/20/21 04:36 Bite Cells Not Reportable 04/20/21 04:36 Crenated Cell Not Reportable 04/20/21 04:36 Elliptocytes Not Reportable 04/20/21 04:36 Acanthocytes (Spur) Not Reportable 04/20/21 04:36 Rouleaux Not Reportable 04/20/21 04:36 Hemoglobin C Crystals Not Reportable 04/20/21 04:36 Schistocytes Not Reportable 04/20/21 04:36 Malaria parasites Not Reportable 04/20/21 04:36 Andre Bodies Not Reportable 04/20/21 04:36 Hem Pathologist Commnt No 04/20/21 04:36 PT 16.5 Sec. (12.2-14.9) H 04/20/21 04:36 INR 1.28 (0.87-1.13) H 04/20/21 04:36 APTT 25.6 Sec. (24.2-36.6) 04/19/21 14:06 Sodium 149 mmol/L (137-145) H 04/20/21 04:36 Potassium 5.0 mmol/L (3.6-5.0) 04/20/21 04:36 Chloride 106.1 mmol/L (98-107) 04/20/21 04:36 Carbon Dioxide 34 mmol/L (22-30) H 04/20/21 04:36 Anion Gap 14 mmol/L 04/20/21 04:36 BUN 54 mg/dL (7-17) H 04/20/21 04:36 Creatinine 3.6 mg/dL (0.6-1.2) H 04/20/21 04:36 Estimated GFR 15 ml/min 04/20/21 04:36 BUN/Creatinine Ratio 15 % 04/20/21 04:36 Glucose 141 mg/dL (65-100) H 04/20/21 04:36 Lactic Acid 1.00 mmol/L (0.7-2.0) 04/19/21 00:09 Calcium 8.2 mg/dL (8.4-10.2) L 04/20/21 04:36 Magnesium 1.80 mg/dL (1.7-2.3) 04/19/21 00:09 Total Bilirubin 0.20 mg/dL (0.1-1.2) 04/18/21 18:21 AST 10 units/L (5-40) 04/18/21 18:21 ALT 8 units/L (7-56) 04/18/21 18:21 Alkaline Phosphatase 59 units/L (35-129) 04/18/21 18:21 Total Creatine Kinase 34 units/L (30-135) 04/19/21 00:09 Troponin T 0.047 ng/mL (0.00-0.029) H D 04/18/21 21:15 NT-Pro-B Natriuret Pep 684.9 pg/mL (0-900) 04/19/21 00:09 Total Protein 6.0 g/dL (6.3-8.2) L 04/18/21 18:21 Albumin 3.8 g/dL (3.9-5) L 04/18/21 18:21 Albumin/Globulin Ratio 1.7 % 04/18/21 18:21 TSH 1.730 mlU/mL (0.270-4.200) 04/19/21 00:09 Urine Color Yellow (Yellow) 04/19/21 04:08 Urine Turbidity Hazy (Clear) 04/19/21 04:08 Urine pH 5.0 (5.0-7.0) 04/19/21 04:08 Ur Specific [place] 1.013 (1.003-1.030) 04/19/21 04:08 Urine Protein 30 mg/dl mg/dL (Negative) 04/19/21 04:08 Urine Glucose (UA) Neg mg/dL (Negative) 04/19/21 04:08 Urine Ketones Neg mg/dL (Negative) 04/19/21 04:08 Urine Blood Neg (Negative) 04/19/21 04:08 Urine Nitrite Neg (Negative) 04/19/21 04:08 Urine Bilirubin Neg (Negative) 04/19/21 04:08 Urine Urobilinogen < 2.0 mg/dL (<2.0) 04/19/21 04:08 Ur Leukocyte Esterase Sm (Negative) 04/19/21 04:08 Urine WBC (Auto) 6.0 /HPF (0.0-6.0) 04/19/21 04:08 Urine RBC (Auto) 4.0 /HPF (0.0-6.0) 04/19/21 04:08 U Epithel Cells (Auto) 8.0 /HPF (0-13.0) 04/19/21 04:08 Urine Bacteria (Auto) 1+ /HPF (Negative) 04/19/21 04:08 Urine Mucus Few /HPF 04/19/21 04:08 Urine Yeast (Budding) Few /HPF 04/19/21 04:08 Microbiology: Microbiology 04/19/21 00:09 Peripheral/Venous Blood Culture - Preliminary NO GROWTH AFTER 24 HOURS 04/19/21 00:01 Peripheral/Venous Blood Culture - Preliminary NO GROWTH AFTER 24 HOURS Herrera/IV: Voiding Method External Female Catheter Active Medications - Current Medications Current Medications: Generic Name Dose Route Start Last Admin Trade Name Freq PRN Reason Stop Dose Admin Acetaminophen 650 mg 04/19/21 03:27 Acetaminophen 325 Mg Tab PO Q4H PRN Pain MILD(1-3)/Fever >100.5/THORNTON Albuterol 2.5 mg 04/19/21 09:30 Albuterol 2.5 Mg/3 Ml Nebu IH Q4HRT PRN Shortness Of Breath Albuterol/Ipratropium 1 ampul 04/19/21 14:00 04/20/21 08:50 Ipratropium/Albuterol Sulfate 3 Ml Ampul.Neb IH 1 ampul TIDRT MANE Administration Apixaban 5 mg 04/19/21 22:00 04/19/21 21:31 Apixaban 5 Mg Tab PO 5 mg Q12HR MANE Administration Protocol Arformoterol Tartrate 15 mcg 04/19/21 20:00 04/20/21 08:50 Arformoterol 15 Mcg/2 Ml Nebu IH 15 mcg Q12HRT MANE Administration Budesonide 0.5 mg 04/19/21 20:00 04/20/21 08:50 Budesonide 0.5 Mg/2 Ml Nebu IH 0.5 mg Q12HRT MANE Administration Diltiazem HCl 180 mg 04/19/21 11:00 04/19/21 12:27 Diltiazem Cd 180 Mg Cap PO 180 mg QDAY MANE Administration Hydromorphone HCl 0.2 mg 04/19/21 04:22 04/19/21 17:10 Hydromorphone 1 Mg/1 Ml Inj IV 0.2 mg Q4H PRN Administration Pain , moderate (4-6) Levofloxacin/Dextrose 500 mg in 100 mls @ 66.667 mls/hr 04/21/21 04:00 Levaquin 500mg/100ml IV Q48H MANE Protocol Magnesium Hydroxide 30 ml 04/19/21 03:27 Magnesium Hydroxide (Mom) Oral Liqd Udc PO Q4H PRN Constipation Magnesium Hydroxide 30 ml 04/20/21 09:52 Magnesium Hydroxide (Mom) Oral Liqd Udc PO 04/20/21 09:53 ONCE ONE Methylprednisolone Sodium Succinate 40 mg 04/19/21 06:00 04/20/21 06:24 Methylprednisolone Sod Succinate 40 Mg/1 Ml Inj IV 40 mg Q8HR MANE Administration Ondansetron HCl 4 mg 04/19/21 03:27 Ondansetron 4 Mg/2 Ml Inj IV Q8H PRN Nausea And Vomiting Sodium Chloride 10 ml 04/19/21 10:00 04/19/21 21:32 Sodium Chloride 0.9% 10 Ml Flush Syringe IV 10 ml BID MANE Administration Sodium Chloride 10 ml 04/19/21 03:27 Sodium Chloride 0.9% 10 Ml Flush Syringe IV PRN PRN LINE FLUSH
--- NOTE | 2021-04-20 09:56 | Consultation ---
History of Present Illness - Reason for Consult Consult date: 04/20/21 acute renal failure, chronic renal failure - History of Present Illness The patient is an 80 YO female who is well known to our service with history significant for HTN, Diastolic CHF, COPD, chronic hypoxic respiratory failure on home O2, SSS s/p PPM, Anemia and CKD stage 4 who presented to [facility] 04/18 with c/o shortness of breath and wheezing. She reports some mild productive cough. She indicates that she had a syncopal episode and a brief loss of consciousness while in the bathroom. She denies any head injury, headache, blurry vision, neck pain, fever, chills, nausea, vomiting or diarrhea. Denies any sick cont acts or recent travel. She has received a Covid vaccination. Work-up in the emergency room, chest x-ray showed mild patchy parenchymal opacities in the lung bases which could represent atelectasis or evolving pneumonia. Labs are significant for elevated troponin, Creat 3.6, BUN 54 and K 5. Patient is being treated for syncope, pneumonia, COPD exacerbation and elevated troponin. Nephrology was consulted for further evaluation of NELIDA. Past History Past Medical History: arrhythmia, arthritis, COPD, hypertension, renal failure, stroke (X2), other (Chronic bronchitis) Past Surgical History: hysterectomy, Other (Pacemaker placement, right knee surgery, cataract removal in both eyes.) Social history: no significant social history Family history: no significant family history Medications and Allergies Allergies Allergy/AdvReac Type Severity Reaction Status Date / Time aspirin Allergy Hives Verified 03/15/21 13:33 Penicillins Allergy Hives Verified 03/15/21 13:33 Sulfa (Sulfonamide Allergy Hives Verified 03/15/21 13:33 Antibiotics) Home Medications Medication Instructions Recorded Confirmed Last Taken Type ALBUTEROL Inhaler(NF) [VENTOLIN 2 puff IH Q4H PRN #1 inha 11/01/18 03/16/21 08/07/19 Rx Inhaler(NF)] Famotidine [Pepcid] 20 mg PO DAILY #30 tablet 11/01/18 03/16/21 08/07/19 Rx Mirtazapine [Remeron 30mg TAB] 30 mg PO QHS PRN #30 tablet 11/01/18 03/16/21 Rx Budesonide/Formoterol Fumarate 2 puff IH DAILY #1 hfa.aer.ad 03/12/21 03/16/21 Unknown Rx [Symbicort 160-4.5 Mcg Inhaler] Ipratropium/Albuterol Sulfate 1 ampul IH QIDRT #120 ampul.neb 03/12/21 03/16/21 Unknown Rx [DUONEB *Not for PRN Use*] Apixaban [Eliquis] 5 mg PO Q12HR #60 tablet 03/19/21 Unknown Rx Arformoterol Nebu [Brovana Nebu] 15 mcg IH Q12HRT #30 ml 03/19/21 Unknown Rx Budesonide [Pulmicort Respules] 0.5 mg IH Q12HRT #30 nebu 03/19/21 Unknown Rx levoFLOXacin [Levaquin TAB] 500 mg PO Q48H #3 tablet 03/19/21 Unknown Rx predniSONE [Deltasone] 20 mg PO QDAY #60 tab 03/19/21 Unknown Rx Active Meds: Active Medications Acetaminophen (Acetaminophen 325 Mg Tab) 650 mg PO Q4H PRN PRN Reason: Pain MILD(1-3)/Fever >100.5/THORNTON Albuterol (Albuterol 2.5 Mg/3 Ml Nebu) 2.5 mg IH Q4HRT PRN PRN Reason: Shortness Of Breath Albuterol/Ipratropium (Ipratropium/Albuterol Sulfate 3 Ml Ampul.Neb) 1 ampul IH TIDRT [facility] Last Admin: 04/20/21 08:50 Dose: 1 ampul Documented by: Apixaban (Apixaban 5 Mg Tab) 5 mg PO Q12HR [facility]; Protocol Last Admin: 04/19/21 21:31 Dose: 5 mg Documented by: Arformoterol Tartrate (Arformoterol 15 Mcg/2 Ml Nebu) 15 mcg IH Q12HRT [facility] Last Admin: 04/20/21 08:50 Dose: 15 mcg Documented by: Budesonide (Budesonide 0.5 Mg/2 Ml Nebu) 0.5 mg IH Q12HRT [facility] Last Admin: 04/20/21 08:50 Dose: 0.5 mg Documented by: Diltiazem HCl (Diltiazem Cd 180 Mg Cap) 180 mg PO QDAY [facility] Last Admin: 04/19/21 12:27 Dose: 180 mg Documented by: Hydromorphone HCl (Hydromorphone 1 Mg/1 Ml Inj) 0.2 mg IV Q4H PRN PRN Reason: Pain , moderate (4-6) Last Admin: 04/19/21 17:10 Dose: 0.2 mg Documented by: Levofloxacin/Dextrose (Levaquin 500mg/100ml) 500 mg in 100 mls @ 66.667 mls/hr IV Q48H [facility]; Protocol Magnesium Hydroxide (Magnesium Hydroxide (Mom) Oral Liqd Udc) 30 ml PO Q4H PRN PRN Reason: Constipation Magnesium Hydroxide (Magnesium Hydroxide (Mom) Oral Liqd Udc) 30 ml PO ONCE ONE Stop: 04/20/21 09:53 Methylprednisolone Sodium Succinate (Methylprednisolone Sod Succinate 40 Mg/1 Ml Inj) 40 mg IV Q8HR [facility] Last Admin: 04/20/21 06:24 Dose: 40 mg Documented by: Ondansetron HCl (Ondansetron 4 Mg/2 Ml Inj) 4 mg IV Q8H PRN PRN Reason: Nausea And Vomiting Sodium Chloride (Sodium Chloride 0.9% 10 Ml Flush Syringe) 10 ml IV BID [facility] Last Admin: 04/19/21 21:32 Dose: 10 ml Documented by: Sodium Chloride (Sodium Chloride 0.9% 10 Ml Flush Syringe) 10 ml IV PRN PRN PRN Reason: LINE FLUSH Review of Systems Constitutional: no weight loss, no weight gain, no fever, no chills, no anorexia, no weakness, no poor appetite Breasts: deferred Cardiovascular: syncope, shortness of breath, dyspnea on exertion, no chest pain, no orthopnea, no edema, no lightheadedness Gastrointestinal: constipation, no abdominal pain, no nausea, no vomiting, no diarrhea, no melena Genitourinary Female: no dysuria, no hematuria Musculoskeletal: no muscle weakness Integumentary: no rash Neurological: no seizures, no syncope, no convulsions, no aphasia, no change in speech, no change in mentation, no confusion Exam - Vital Signs Vital signs: Vital Signs Temp Pulse Resp BP Pulse Ox 99.1 F 91 H 18 121/64 100 04/18/21 17:26 04/18/21 17:26 04/18/21 17:26 04/18/21 17:26 04/18/21 17:26 Results - Lab Results 04/20/21 04:36 04/20/21 04:36 Most recent lab results Calcium 8.2 mg/dL (8.4-10.2) L 04/20/21 04:36 Magnesium 1.80 mg/dL (1.7-2.3) 04/19/21 00:09 Assessment and Plan 1. Acute kidney injury: Vasomotor NELIDA superimposed on CKD stage 4. Patient with known h/o stage 4 CKD and followed by our service. Creatinine level is about the same as prior admission. Suspect CKD 4 approaching stage 5. Urine studies ordered. Encourage PO fluids Monitor renal function. Avoid nephrotoxic agents. Meds dosage based on GFR. 2. FEN: Hypernatremia, encouraged PO fluids. Monitor lytes and volume status. 3. Elevated troponin/non-ST elevation [place]: Followed by Cardiology. 4. Syncope: Possibly vasovagal. Fall precautions. Per primary. 5. COPD exacerbation. On Steroids, Brovana and Duoneb. Symptoms are better. Monitor. 6. Chronic hypoxic respiratory failure: NC O2. 7. Chronic Anemia: Monitor. Subjective: Patient was seen and examined at the bedside. C/o constipation. Examination: General appearance: well-developed, appears stated age, no distress, NC O2 HEENT: ATNC, FALGUNI, hearing intact, vision intact Neck: neck supple, trachea midline Respiratory: Clear to Auscultation Heart: regular, S1S2, no murmur Gastrointestinal: soft, normoactive bowel sounds, not tender, not distended Integumentary: no rash, warm and dry Neurologic: alert, conversing, no focal deficit Ext: no edema
[2021-04-20] MEDS: APIXABAN 5 MG TAB PO SCH ×2 (10:09→21:14)
[2021-04-20] MEDS: MAGNESIUM HYDROXIDE (MOM) ORAL LIQD UDC PO PRN ×2 (10:09→16:27)
[2021-04-20] MEDS: dilTIAZem CD 180 MG CAP PO SCH (10:09)
[2021-04-20] MEDS ORDERED: MAGNESIUM HYDROXIDE (MOM) ORAL LIQD UDC PO SCH (10:30)
--- NOTE | 2021-04-20 11:39 | Progress Note ---
Assessment and Plan COPD exacerbation Chronic renal failure Hypertension Hx of pulmonary embolism on Eliquis RBBB, chronic Presence of DC PPM s/t SSS Conservative cardiac management. Subjective Date of service: 04/20/21 Interval history: Patient is resting in bed and appears comfortable. Objective Vital Signs Temp Pulse Pulse Resp Resp BP Pulse Ox 04/20/21 09:40 93 04/20/21 08:45 72 18 04/20/21 07:28 98.2 F 97 H 18 118/66 90 04/20/21 07:00 18 04/20/21 03:53 97.8 F 86 17 122/63 93 04/19/21 22:36 99.1 F 121 H 18 107/57 92 04/19/21 19:59 96 04/19/21 19:58 100 H 20 04/19/21 19:50 99.6 F 90 18 125/65 100 04/19/21 19:35 93 H 04/19/21 19:21 93 H 04/19/21 16:22 98.2 F 93 H 18 125/78 97 - Physical Examination General: No Apparent Distress HEENT: Positive: PERRL Neck: Positive: neck supple Cardiac: Positive: Reg Rate and Rhythm Lungs: Positive: Decreased Breath Sounds Neuro: Positive: Grossly Intact Abdomen: Positive: Soft Extremities: Absent: edema - Labs and Meds Coagulation 04/19/21 04/20/21 Range/Units 14:06 04:36 PT 13.7 16.5 H (12.2-14.9) Sec. INR 1.00 1.28 H (0.87-1.13) APTT 25.6 (24.2-36.6) Sec. CBC 04/19/21 04/20/21 Range/Units 14:06 04:36 WBC 4.2 L 9.8 (4.5-11.0) K/mm3 RBC 2.87 L 2.80 L (3.65-5.03) M/mm3 Hgb 8.3 L 7.9 L (10.1-14.3) gm/dl Hct 24.9 L 24.3 L (30.3-42.9) % Plt Count 179 216 (140-440) K/mm3 Comprehensive Metabolic Panel 04/19/21 04/20/21 Range/Units 14:06 04:36 Sodium 149 H (137-145) mmol/L Potassium 5.0 (3.6-5.0) mmol/L Chloride 106.1 (98-107) mmol/L Carbon Dioxide 34 H (22-30) mmol/L BUN 54 H (7-17) mg/dL Creatinine 3.3 H 3.6 H (0.6-1.2) mg/dL Glucose 141 H (65-100) mg/dL Calcium 8.2 L (8.4-10.2) mg/dL
[2021-04-20] MEDS: POLYETHYLENE GLYCOL 3350 17 GM POWDER PO SCH (13:40)
[2021-04-20 14:10] LABS: Creatinine,Urine 52.2 mg/dL (0.1-20.0)
--- NOTE | 2021-04-20 19:13 | Electrocardiograph Report ---
[facility] Test Date: 2021-04-18 Test Time: 17:39:54 Pat Name: DANN STALLINGS Department: Room: A468 1 Gender: F Baggage Handler: JARRETT : [id number] Requested By: MARRY JORDAN Order Number: [id number] Reading MD: Jovanna Judd Measurements Intervals [place] Rate: 100 P: 68 CA: 134 QRS: -83 QRSD: 133 T: 63 QT: 363 QTc: 457 Interpretive Statements Sinus rhythm with frequent PACs Or multifocal area atrial rhythm RBBB and LAFB Compared to ECG 04/13/2021 21:20:58 More frequent atrial ectopy Electronically Signed On 04-20-2021 19:13:30 EDT by Jovanna Judd
[2021-04-21 04:55] LABS: Calcium 8.5 mg/dL (8.4-10.2)
[2021-04-21 05:14] LABS: Hematocrit 25.5 % (30.3-42.9); Hemoglobin 8.2 gm/dl (10.1-14.3); Mean Corpuscular HGB Conc 32 % (30-34); Mean Corpuscular Volume 87 fl (79-97); Platelet Count 227 K/mm3 (140-440); Red Blood Count 2.92 M/mm3 (3.65-5.03); Red Cell Distribution Width 17.6 % (13.2-15.2)
[2021-04-21] MEDS: methylPREDNISolone Sod Succinate 40 MG/1 ML INJ IV SCH (05:29)
[2021-04-21] MEDS: ARFORMOTEROL 15 MCG/2 ML NEBU IH SCH (07:44)
[2021-04-21] MEDS: BUDESONIDE 0.5 MG/2 ML NEBU IH SCH (07:44)
[2021-04-21] MEDS: IPRATROPIUM/ALBUTEROL SULFATE 3 ML AMPUL.NEB IH SCH ×2 (07:47→15:48)
[2021-04-21] MEDS ORDERED: SODIUM POLYSTYRENE 15 GM/60 ML ORAL LIQD PO SCH (08:00)
[2021-04-21] MEDS: POLYETHYLENE GLYCOL 3350 17 GM POWDER PO SCH (09:09)
[2021-04-21] MEDS: APIXABAN 5 MG TAB PO SCH (09:09)
[2021-04-21] MEDS: dilTIAZem CD 180 MG CAP PO SCH (09:09)
--- NOTE | 2021-04-21 09:28 | Progress Note ---
Assessment and Plan COPD exacerbation Chronic renal failure Hypertension Hx of pulmonary embolism on Eliquis RBBB, chronic Presence of DC PPM s/t SSS Conservative cardiac management. Subjective Date of service: 04/21/21 Interval history: Patient is resting in bed and appears comfortable. No cardiac events. Objective Vital Signs Temp Pulse Pulse Resp Resp BP Pulse Ox 04/21/21 09:09 103 H 114/55 04/21/21 08:09 98.6 F 103 H 18 114/55 95 04/21/21 07:45 97 04/21/21 07:44 97 H 17 04/21/21 03:48 99.1 F 102 H 18 106/52 94 04/20/21 20:10 104 H 18 96 04/20/21 19:58 98.0 F 96 H 18 117/57 97 04/20/21 19:52 20 04/20/21 19:49 99 H 04/20/21 18:00 98.0 F 99 H 18 97/47 94 04/20/21 13:45 104 H 18 04/20/21 11:00 100 H 04/20/21 09:40 93 - Physical Examination General: No Apparent Distress HEENT: Positive: PERRL Neck: Positive: neck supple Cardiac: Positive: Reg Rate and Rhythm Lungs: Positive: Decreased Breath Sounds Neuro: Positive: Grossly Intact Abdomen: Positive: Soft Extremities: Absent: edema - Labs and Meds CBC 04/21/21 Range/Units 04:08 WBC 13.5 H (4.5-11.0) K/mm3 RBC 2.92 L (3.65-5.03) M/mm3 Hgb 8.2 L (10.1-14.3) gm/dl Hct 25.5 L (30.3-42.9) % Plt Count 227 (140-440) K/mm3 Comprehensive Metabolic Panel 04/21/21 Range/Units 04:08 Sodium 139 D (137-145) mmol/L Potassium 5.4 H (3.6-5.0) mmol/L Chloride 97.9 L (98-107) mmol/L Carbon Dioxide 34 H (22-30) mmol/L BUN 65 H (7-17) mg/dL Creatinine 3.7 H (0.6-1.2) mg/dL Glucose 166 H (65-100) mg/dL Calcium 8.5 (8.4-10.2) mg/dL
--- NOTE | 2021-04-21 10:04 | Progress Note ---
Assessment and Plan 1. Acute kidney injury: Vasomotor NELIDA superimposed on CKD stage 4. Patient with known h/o stage 4 CKD and followed by our service. Creatinine level is about the same as prior admission. Suspect CKD 4 approaching stage 5. Encourage PO fluids Monitor renal function. Avoid nephrotoxic agents. Meds dosage based on GFR. 2. FEN: Hypernatremia, improved. Monitor lytes and volume status. 3. Elevated troponin/non-ST elevation IN: Followed by Cardiology. 4. Syncope: Possibly vasovagal. Fall precautions. Per primary. 5. COPD exacerbation. On Steroids, Brovana, Pulmicort and Duoneb. Symptoms are better. Monitor. 6. Chronic hypoxic respiratory failure: NC O2. 7. Chronic Anemia: Monitor. Subjective: Patient was seen and examined at the bedside. Doing ok. Examination: General appearance: well-developed, appears stated age, no distress, NC O2 HEENT: ATNC, FALGUNI, hearing intact, vision intact Neck: neck supple, trachea midline Respiratory: Clear to Auscultation Heart: regular, S1S2, no murmur Gastrointestinal: soft, normoactive bowel sounds, not tender, not distended Integumentary: no rash, warm and dry Neurologic: alert, conversing, no focal deficit Ext: no edema Subjective Date of service: 04/21/21 Objective - Vital Signs Vital signs: Vital Signs - 12hr 04/21/21 04/21/21 04/21/21 03:48 07:44 07:45 Temperature 99.1 F Pulse Rate 102 H Pulse Rate [ 97 H Bilateral Throughout] Respiratory 18 Rate Respiratory 17 Rate [Bilateral Throughout] Blood Pressure 106/52 O2 Sat by Pulse 94 97 Oximetry 04/21/21 04/21/21 08:09 09:09 Temperature 98.6 F Pulse Rate 103 H 103 H Pulse Rate [ Bilateral Throughout] Respiratory 18 Rate Respiratory Rate [Bilateral Throughout] Blood Pressure 114/55 114/55 O2 Sat by Pulse 95 Oximetry - Lab 04/21/21 04:08 04/21/21 04:08 Most recent lab results Calcium 8.5 mg/dL (8.4-10.2) 04/21/21 04:08 Magnesium 1.80 mg/dL (1.7-2.3) 04/19/21 00:09 Urine Creatinine 52.2 mg/dL (0.1-20.0) H 04/20/21 13:57 Urine Sodium 76 mmol/L 04/20/21 13:57 Medications & Allergies - Medications Allergies/Adverse Reactions: Allergies aspirin Allergy (Verified 03/15/21 13:33) Hives Penicillins Allergy (Verified 03/15/21 13:33) Hives Sulfa (Sulfonamide Antibiotics) Allergy (Verified 03/15/21 13:33) Hives Home Medications: Home Medications Medication Instructions Recorded Confirmed Last Taken Type ALBUTEROL Inhaler(NF) [VENTOLIN 2 puff IH Q4H PRN #1 inha 11/01/18 03/16/21 08/07/19 Rx Inhaler(NF)] Famotidine [Pepcid] 20 mg PO DAILY #30 tablet 11/01/18 03/16/21 08/07/19 Rx Mirtazapine [Remeron 30mg TAB] 30 mg PO QHS PRN #30 tablet 11/01/18 03/16/21 08/07/19 Rx Budesonide/Formoterol Fumarate 2 puff IH DAILY #1 hfa.aer.ad 03/12/21 03/16/21 Unknown Rx [Symbicort 160-4.5 Mcg Inhaler] Ipratropium/Albuterol Sulfate 1 ampul IH QIDRT #120 ampul.neb 03/12/21 03/16/21 Unknown Rx [DUONEB *Not for PRN Use*] Apixaban [Eliquis] 5 mg PO Q12HR #60 tablet 03/19/21 Unknown Rx Arformoterol Nebu [Brovana Nebu] 15 mcg IH Q12HRT #30 ml 03/19/21 Unknown Rx Budesonide [Pulmicort Respules] 0.5 mg IH Q12HRT #30 nebu 03/19/21 Unknown Rx predniSONE [Deltasone] 20 mg PO QDAY #60 tab 03/19/21 Unknown Rx dilTIAZem CD [Cardizem CD] 180 mg PO QDAY #30 capsule 04/21/21 Unknown Rx levoFLOXacin [Levaquin TAB] 500 mg PO Q48H #4 tablet 04/21/21 Unknown Rx polyethylene glycoL 3350 [Miralax 17 gm PO BID PRN #30 packet 04/21/21 Unknown Rx 3350] Active Medications: Generic Name Dose Route Start Last Admin Trade Name Freq PRN Reason Stop Dose Admin Acetaminophen 650 mg 04/19/21 03:27 Acetaminophen 325 Mg Tab PO Q4H PRN Pain MILD(1-3)/Fever >100.5/THORNTON Albuterol 2.5 mg 04/19/21 09:30 Albuterol 2.5 Mg/3 Ml Nebu IH Q4HRT PRN Shortness Of Breath Albuterol/Ipratropium 1 ampul 04/19/21 14:00 04/21/21 07:47 Ipratropium/Albuterol Sulfate 3 Ml Ampul.Neb IH 1 ampul TIDRT MANE Administration Apixaban 5 mg 04/19/21 22:00 04/21/21 09:09 Apixaban 5 Mg Tab PO 5 mg Q12HR MANE Administration Protocol Arformoterol Tartrate 15 mcg 04/19/21 20:00 04/21/21 07:44 Arformoterol 15 Mcg/2 Ml Nebu IH 15 mcg Q12HRT MANE Administration Budesonide 0.5 mg 04/19/21 20:00 04/21/21 07:44 Budesonide 0.5 Mg/2 Ml Nebu IH 0.5 mg Q12HRT MANE Administration Diltiazem HCl 180 mg 04/19/21 11:00 04/21/21 09:09 Diltiazem Cd 180 Mg Cap PO 180 mg QDAY MANE Administration Hydromorphone HCl 0.2 mg 04/19/21 04:22 04/19/21 17:10 Hydromorphone 1 Mg/1 Ml Inj IV 0.2 mg Q4H PRN Administration Pain , moderate (4-6) Levofloxacin/Dextrose 500 mg in 100 mls @ 66.667 mls/hr 04/21/21 04:00 04/21/21 05:29 Levaquin 500mg/100ml IV 04/29/21 05:29 66.667 mls/hr Q48H MANE Administration Protocol Methylprednisolone Sodium Succinate 20 mg 04/21/21 18:00 Methylprednisolone Sod Succinate 40 Mg/1 Ml Inj IV Q12H MANE Ondansetron HCl 4 mg 04/19/21 03:27 Ondansetron 4 Mg/2 Ml Inj IV Q8H PRN Nausea And Vomiting Polyethylene Glycol 17 gm 04/20/21 12:00 04/21/21 09:09 Polyethylene Glycol 3350 17 Gm Powder PO 17 gm QDAY MANE Administration Sodium Chloride 10 ml 04/19/21 10:00 04/21/21 09:11 Sodium Chloride 0.9% 10 Ml Flush Syringe IV 10 ml BID MANE Administration Sodium Chloride 10 ml 04/19/21 03:27 Sodium Chloride 0.9% 10 Ml Flush Syringe IV PRN PRN LINE FLUSH Sodium Polystyrene Sulfonate 30 gm 04/21/21 08:00 04/21/21 09:06 Sodium Polystyrene 15 Gm/60 Ml Oral Liqd PO 04/21/21 17:00 30 gm ONCE MANE Administration
--- NOTE | 2021-04-21 13:39 | Discharge Summary ---
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 04/21/21 10:53 Occupational Therapy Evaluate and Treat [CONS] Routine Comment: Reason For Exam: home vs snf Primary care physician: BREAD SLICER MACHINE Hospitalization Reason for admission: Worsening shortness of breath Condition: Good Pertinent studies: CT head CT cervical spine Chest x-ray Pelvis CT Carotid Doppler Pelvic x-ray Hospital course: Elderly 80-year-old frail -[place] female patient with history of COPD chronic respiratory failure on home oxygen hypertension CHF EF of 50% coronary artery disease history of dual-chamber pacemaker was admitted through emergency room with worsening shortness of breath and wheezing. Work-up is consistent with acute exacerbation of COPD patient also had positive troponins. Patient was admitted and evaluated by technical support consultant for optimization of medications Patient blood pressure blood sugars closely monitored medication optimized Patient had extensive neuro work-up Patient received physical therapy occupational therapy Symptoms significantly improved patient is back at his baseline Consultants cleared for discharge and follow-up per schedule Discharge diagnosis; --Acute exacerbation of COPD Symptoms resolved patient is already on home oxygen --Elevated troponin/non-ST elevation SD Nonspecific due to CKD,continue current cardiac medications --Chronic kidney disease; stage IV Monitor renal function. Avoid nephrotoxin. Nephrology consult if needed -- Syncope/probably autonomic imbalance Possibly vasovagal. Fall precautions Syncope work-up negative PT OT if needed --Acute on chronic respiratory failure Patient is on home oxygen . We will monitor and keep oxygen saturation greater equal to 94%. -- HTN (hypertension) We will resume routine home medications and monitor vital signs closely. --History of PE; Continue oxygen titrate O2 sats to more than 90 --Community acquired pneumonia Continue current management --History of PPM in place continue to monitor, interrogation if needed Patient is stable at discharge Cleared by consultants Disposition: DC TO HOME OR SELFCARE Final Discharge Diagnosis (Prints w/discharge instructions): Constipation. Acute exacerbation of COPD. Chronic kidney disease stage IV. Non-ST elevation type II. Syncope autonomic imbalance. Acute on chronic hypoxic respiratory failure. Home oxygen dependent. Hypertension. History of PE. Community- acquired pneumonia. History of PPM Time spent for discharge: 35min Core Measure Documentation - Palliative Care Palliative Care/ Comfort Measures: Not Applicable - Core Measures Any of the following diagnoses?: none Exam - Constitutional Vitals: Temp Pulse Resp BP Pulse Ox 98.0 F 116 H 18 118/71 99 04/21/21 11:30 04/21/21 11:30 04/21/21 11:30 04/21/21 11:30 04/21/21 11:30 General appearance: Present: no acute distress, well-nourished - EENT Eyes: Present: PERRL, EOM intact - Neck Neck: Present: supple, normal ROM - Respiratory Respiratory effort: normal Respiratory: bilateral: diminished, negative: rales, rhonchi, wheezing - Cardiovascular Rhythm: regular Heart Sounds: Present: S1 & S2 - Extremities Extremities: no ischemia, No edema - Abdominal General gastrointestinal: Present: soft, non-tender, non-distended, normal bowel sounds - Integumentary Integumentary: Present: clear, warm - Musculoskeletal Musculoskeletal: strength equal bilaterally, generalized weakness - Psychiatric Psychiatric: appropriate mood/affect, cooperative Plan Activity: advance as tolerated, fall precautions Diet: other (cardiac diet) Additional Instructions: Fall precautions. Continue home oxygen as before. Advised to follow nephrology, cardiology, pulmonary and primary care physician per schedule. If you have worsening symptoms contact MD or go to emergency room as needed Follow up with: PRIMARY CARE, [Primary Care Provider] - 3-5 Days BRAD MELENDEZ MD [Staff Physician] - 7 Days TIFFANIE PRICE MD [Staff Physician] - 7 Days Prescriptions: dilTIAZem CD [Cardizem CD] 180 mg PO QDAY #30 capsule polyethylene glycoL 3350 [Miralax 3350] 17 gm PO BID PRN #30 packet PRN Reason: Constipation
[2021-04-21 16:21] VITALS: BP 136/73
[2021-04-21] MEDS ORDERED: methylPREDNISolone Sod Succinate 40 MG/1 ML INJ IV SCH (18:00)
== END 2021-04-21 20:27 | disposition home or self-care (01) ==
LOC: ED 17:05 → 4A 04-19 03:12
PROVIDERS: ADMIT Internal Medicine Geriatric Medicine; ATTEND Internal Medicine
DX: J96.11 Chronic respiratory failure with hypoxia (principal); J44.1 Chronic obstructive pulmonary disease with (acute) exacerbation; I13.0 Hypertensive heart and chronic kidney disease with heart failure and stage 1 through stage 4 chronic kidney disease, or unspecified chronic kidney disease; I50.9 Heart failure, unspecified; N18.4 Chronic kidney disease, stage 4 (severe); J18.9 Pneumonia, unspecified organism; R55 Syncope and collapse; D64.9 Anemia, unspecified; R77.8 Other specified abnormalities of plasma proteins; I25.2 Old myocardial infarction; I45.10 Unspecified right bundle-branch block; M19.90 Unspecified osteoarthritis, unspecified site; K59.00 Constipation, unspecified; M25.50 Pain in unspecified joint; Z86.73 Personal history of transient ischemic attack (TIA), and cerebral infarction without residual deficits; Z90.710 Acquired absence of both cervix and uterus; Z98.41 Cataract extraction status, right eye; Z98.42 Cataract extraction status, left eye; Z79.899 Other long term (current) drug therapy; Z98.890 Other specified postprocedural states; Z79.82 Long term (current) use of aspirin; Z95.810 Presence of automatic (implantable) cardiac defibrillator; Z86.711 Personal history of pulmonary embolism
CPT/HCPCS: 36415; 70450; 71046; 72125; 72170; 72192; 80048; 80053; 81001; 82140; 82550; 82565; 82570; 83735; 83880; 84300; 84443; 84484; 85025; 85027; 85610; 85730; 87040; 87641; 93005; 93880; 94640; 94644; 96365; 96375; 96376; 97162; 97165; 99285; G0378; J1170; J1940; J1956; J2920; J2930; 85007

== ENCOUNTER 2021-04-28 14:12 | Observation (INO) | payer MEDICARE ==
[2021-04-28] MEDS ORDERED: IPRATROPIUM 0.02% NEBU 2.5 ML IH ONE (14:42)
[2021-04-28] MEDS ORDERED: methylPREDNISolone Sod Succinate 125 MG/2 ML INJ IV ONE (14:42)
[2021-04-28] MEDS ORDERED: LEVALBUTEROL 0.63 MG/3 ML NEBU IH ONE (14:43)
--- NOTE | 2021-04-28 14:48 | Emergency Department Report ---
ED Shortness of Breath HPI - General Chief Complaint: Dyspnea/Respdistress Stated Complaint: NIRAV Time Seen by Provider: 04/28/21 14:37 Source: patient, EMS Mode of arrival: Stretcher Limitations: No Limitations - History of Present Illness Initial Comments: Patient is 80 years old female with history of COPD, CHF, CVA and hypertension. Patient brought to the emergency room via EMS from home for evaluation of shortness of breath and difficulty breathing for the last few days. Patient stated that she has been using her albuterol with no improvement. Patient was released from the hospital approximately 7 days ago for similar symptoms. Patient denied any fever or chills. No chest pain. MD Complaint: shortness of breath Severity: moderate Known History Of: COPD, congestive heart failure - Related Data Previous Rx's Medication Instructions Recorded Last Taken Type ALBUTEROL Inhaler(NF) [VENTOLIN 2 puff IH Q4H PRN #1 inha 11/01/18 08/07/19 Rx Inhaler(NF)] Famotidine [Pepcid] 20 mg PO DAILY #30 tablet 11/01/18 08/07/19 Rx Mirtazapine [Remeron 30mg TAB] 30 mg PO QHS PRN #30 tablet 11/01/18 08/07/19 Rx Budesonide/Formoterol Fumarate 2 puff IH DAILY #1 hfa.aer.ad 03/12/21 Unknown Rx [Symbicort 160-4.5 Mcg Inhaler] Ipratropium/Albuterol Sulfate 1 ampul IH QIDRT #120 ampul.neb 03/12/21 Unknown Rx [DUONEB *Not for PRN Use*] Apixaban [Eliquis] 5 mg PO Q12HR #60 tablet 03/19/21 Unknown Rx Arformoterol Nebu [Brovana Nebu] 15 mcg IH Q12HRT #30 ml 03/19/21 Unknown Rx Budesonide [Pulmicort Respules] 0.5 mg IH Q12HRT #30 nebu 03/19/21 Unknown Rx predniSONE [Deltasone] 20 mg PO QDAY #60 tab 03/19/21 Unknown Rx dilTIAZem CD [Cardizem CD] 180 mg PO QDAY #30 capsule 04/21/21 Unknown Rx levoFLOXacin [Levaquin TAB] 500 mg PO Q48H #4 tablet 04/21/21 Unknown Rx polyethylene glycoL 3350 [Miralax 17 gm PO BID PRN #30 packet 04/21/21 Unknown Rx 3350] Allergies Allergy/AdvReac Type Severity Reaction Status Date / Time aspirin Allergy Hives Verified 04/28/21 15:44 Penicillins Allergy Hives Verified 04/28/21 15:44 Sulfa (Sulfonamide Allergy Hives Verified 04/28/21 15:44 Antibiotics) ED Review of Systems ROS: Stated complaint: NIRAV Other details as noted in HPI Comment: All other systems reviewed and negative Respiratory: cough, orthopnea, shortness of breath, SOB with exertion, SOB at rest, wheezing Cardiovascular: palpitations. denies: chest pain Gastrointestinal: denies: abdominal pain, nausea, vomiting, diarrhea, constipation, hematemesis, melena, hematochezia Musculoskeletal: denies: back pain Neurological: denies: headache, weakness ED Past Medical Hx - Past Medical History Hx Hypertension: Yes Hx CVA: Yes (x 2) Hx Heart Attack/AMI: Yes Hx Congestive Heart Failure: Yes Hx Diabetes: No Hx Deep Vein Thrombosis: No Hx Pulmonary Embolism: No Hx Liver Disease: No Hx Renal Disease: Yes Hx Sickle Cell Disease: No Hx Arthritis: Yes Hx Headaches / Migraines: No Hx Seizures: No Hx Kidney Stones: No Hx Psychiatric Treatment: No Hx Asthma: Yes Hx COPD: Yes Hx Tuberculosis: No Hx Dementia: No Hx HIV: No Additional medical history: Chronic Bronchitis - Surgical History Hx Coronary Stent: No Hx Open Heart Surgery: Yes Hx Pacemaker: Yes Hx Internal Defibrillator: No Hx Cholecystectomy: No Hx Appendectomy: No Hx Breast Surgery: No Additional Surgical History: Right Knee Surgery , demand pacemaker (90's). Hyst. cataract removal in both eyes, - Social History Smoking Status: Never Smoker Substance Use Type: None - Medications Home Medications: Home Medications Medication Instructions Recorded Confirmed Last Taken Type ALBUTEROL Inhaler(NF) [VENTOLIN 2 puff IH Q4H PRN #1 inha 11/01/18 03/16/21 08/07/19 Rx Inhaler(NF)] Famotidine [Pepcid] 20 mg PO DAILY #30 tablet 11/01/18 03/16/21 08/07/19 Rx Mirtazapine [Remeron 30mg TAB] 30 mg PO QHS PRN #30 tablet 11/01/18 03/16/21 08/07/19 Rx Budesonide/Formoterol Fumarate 2 puff IH DAILY #1 hfa.aer.ad 03/12/21 03/16/21 Unknown Rx [Symbicort 160-4.5 Mcg Inhaler] Ipratropium/Albuterol Sulfate 1 ampul IH QIDRT #120 ampul.neb 03/12/21 03/16/21 Unknown Rx [DUONEB *Not for PRN Use*] Apixaban [Eliquis] 5 mg PO Q12HR #60 tablet 03/19/21 Unknown Rx Arformoterol Nebu [Brovana Nebu] 15 mcg IH Q12HRT #30 ml 03/19/21 Unknown Rx Budesonide [Pulmicort Respules] 0.5 mg IH Q12HRT #30 nebu 03/19/21 Unknown Rx predniSONE [Deltasone] 20 mg PO QDAY #60 tab 03/19/21 Unknown Rx dilTIAZem CD [Cardizem CD] 180 mg PO QDAY #30 capsule 04/21/21 Unknown Rx levoFLOXacin [Levaquin TAB] 500 mg PO Q48H #4 tablet 04/21/21 Unknown Rx polyethylene glycoL 3350 [Miralax 17 gm PO BID PRN #30 packet 04/21/21 Unknown Rx 3350] ED Physical Exam - General Limitations: No Limitations General appearance: alert, in distress - Head Head exam: Present: atraumatic, normocephalic, normal inspection - Eye Eye exam: Present: normal appearance, PERRL - ENT ENT exam: Present: normal exam, normal orophraynx, mucous membranes moist - Neck Neck exam: Present: normal inspection, full ROM. Absent: tenderness, meningismu s - Respiratory Respiratory exam: Present: respiratory distress, wheezes, rales, rhonchi, accessory muscle use, decreased breath sounds, prolonged expiratory. Absent: stridor - Cardiovascular Cardiovascular Exam: Present: tachycardia - GI/Abdominal GI/Abdominal exam: Present: soft, normal bowel sounds. Absent: distended, tenderness, guarding, rebound, rigid, organomegaly, mass, bruit, pulsatile mass, hernia - Extremities Exam Extremities exam: Present: normal inspection, normal capillary refill. Absent: calf tenderness - Back Exam Back exam: Present: normal inspection, full ROM. Absent: CVA tenderness (R), CVA tenderness (L) - Neurological Exam Neurological exam: Present: alert, oriented X3, CN II-XII intact - Psychiatric Psychiatric exam: Present: normal mood - Skin Skin exam: Present: warm, intact, normal color ED Course Vital Signs 04/28/21 04/28/21 04/28/21 14:28 14:30 14:37 Temperature 98.1 F Pulse Rate 120 H 117 H 122 H Pulse Rate [ Anterior Bilateral Throughout] Respiratory 23 28 H 32 H Rate Respiratory Rate [Anterior Bilateral Throughout] Blood Pressure 147/87 Blood Pressure [Left] O2 Sat by Pulse 97 99 Oximetry 04/28/21 04/28/21 04/28/21 15:00 15:30 15:38 Temperature Pulse Rate 117 H 111 H 109 H Pulse Rate [ Anterior Bilateral Throughout] Respiratory 34 H 29 H Rate Respiratory Rate [Anterior Bilateral Throughout] Blood Pressure 138/70 132/79 Blood Pressure 127/82 [Left] O2 Sat by Pulse 97 100 99 Oximetry 04/28/21 04/28/21 16:01 16:33 Temperature Pulse Rate 110 H Pulse Rate [ 111 H Anterior Bilateral Throughout] Respiratory 29 H Rate Respiratory 28 H Rate [Anterior Bilateral Throughout] Blood Pressure 146/81 Blood Pressure [Left] O2 Sat by Pulse 100 Oximetry ED Medical Decision Making - Lab Data Result diagrams: 04/28/21 14:58 04/28/21 14:58 - Radiology Data Radiology results: report reviewed - Medical Decision Making Patient is 80 years old female with history of COPD, CHF, CVA and hypertension. Patient brought to the emergency room via EMS from home for evaluation of shortness of breath and difficulty breathing for the last few days. Patient stated that she has been using her albuterol with no improvement. Patient stated that she is coughing a lot with greenish sputum. Patient was discharged from the hospital approximately 7 days ago for similar symptoms. Patient denied any fever or chills. No chest pain. Patient received Xopenex, Atrovent, Solu-Medrol and Levaquin. Labs reviewed and is unremarkable except for elevated BNP. Chest x-ray is unremarkable. I discussed the patient with Dr. Sahu, he agreed to admit the patient to medical service for further management. Critical Care Time: Yes Critical care time in (mins) excluding proc time.: 30 Critical care attestation.: If time is entered above; I have spent that time in minutes in the direct care of this critically ill patient, excluding procedure time. ED Disposition Clinical Impression: Acute exacerbation of chronic obstructive pulmonary disease (COPD) Disposition: OP ADMIT IP TO THIS HOSP Is pt being admited?: Yes Condition: Stable Instructions: Chronic Obstructive Pulmonary Disease (ED)
[2021-04-28 15:20] LABS: Basophils % (Auto) 0.6 % (0.0-1.8); Eosinophils # (Auto) 0.1 K/mm3 (0.0-0.4); Eosinophils % (Auto) 1.3 % (0.0-4.3); Hematocrit 27.7 % (30.3-42.9); Hemoglobin 8.7 gm/dl (10.1-14.3); Lymphocytes # (Auto) 0.9 K/mm3 (1.2-5.4); Lymphocytes % (Auto) 13.2 % (13.4-35.0); Mean Corpuscular HGB Conc 31 % (30-34); Mean Corpuscular Volume 89 fl (79-97); Monocytes # (Auto) 0.7 K/mm3 (0.0-0.8); Monocytes % (Auto) 9.8 % (0.0-7.3); Platelet Count 170 K/mm3 (140-440); Red Blood Count 3.09 M/mm3 (3.65-5.03); Red Cell Distribution Width 17.5 % (13.2-15.2)
[2021-04-28 15:27] LABS: INR 0.9 (0.87-1.13)
[2021-04-28 15:28] LABS: Partial Thromboplastin Time 23.1 Sec. (24.2-36.6)
[2021-04-28 15:35] LABS: Calcium 8.3 mg/dL (8.4-10.2)
[2021-04-28 16:20] LABS: Chol/HDL Ratio 2.28 %
[2021-04-28] MEDS ORDERED: ALBUTEROL 8.5 GM MDI INHALATION IH PRN (17:19)
[2021-04-28] MEDS ORDERED: ONDANSETRON 4 MG/2 ML INJ IV PRN (17:23)
[2021-04-28] MEDS ORDERED: ACETAMINOPHEN 325 MG TAB PO PRN (17:23)
[2021-04-28] MEDS ORDERED: NON-FORMULARY EACH (Budesonide/Formoterol Fumarate [Symbicort 160-4.5 Mcg Inhaler] 10.2 GM IH SCH (17:30)
[2021-04-28] MEDS ORDERED: IPRATROPIUM/ALBUTEROL SULFATE 3 ML AMPUL.NEB IH PRN (17:37)
[2021-04-28] MEDS ORDERED: MIRTAZAPINE 30 MG TAB PO PRN (18:00)
[2021-04-28] MEDS: dilTIAZem CD 180 MG CAP PO SCH (18:35)
[2021-04-28] MEDS ORDERED: ALBUTEROL 2.5 MG/3 ML NEBU IH PRN (18:38)
[2021-04-28] MEDS ORDERED: NON-FORMULARY EACH (Apixaban 5 MG Tablet) PO SCH (22:00)
[2021-04-28] MEDS ORDERED: HEPARIN 5,000 UNIT/1 ML VIAL SUB-Q SCH (22:00)
[2021-04-28] MEDS: IPRATROPIUM/ALBUTEROL SULFATE 3 ML AMPUL.NEB IH SCH (22:27)
[2021-04-28] MEDS: BUDESONIDE 0.5 MG/2 ML NEBU IH SCH (22:27)
[2021-04-28] MEDS: ARFORMOTEROL 15 MCG/2 ML NEBU IH SCH (22:27)
[2021-04-29] MEDS: methylPREDNISolone Sod Succinate 125 MG/2 ML INJ IV SCH ×4 (03:08→21:07)
[2021-04-29] MEDS: HEPARIN 5,000 UNIT/1 ML VIAL SUB-Q SCH ×3 (03:09→21:06)
[2021-04-29] MEDS: MORPHINE 2 MG/1 ML INJ IV PRN (03:10)
--- NOTE | 2021-04-29 07:24 | Progress Note ---
Assessment and Plan - Patient Problems (1) Acute respiratory failure with hypoxia Current Visit: Yes Status: Acute Plan to address problem: Patient is on BiPAP Low oxygen saturation at the time of admission IV Solu-Medrol, IV antibiotics and duo nebs [id number] and as needed started (2) COPD exacerbation Current Visit: Yes Status: Acute Plan to address problem: Patient started on IV Solu-Medrol IV antibiotics and duo nebs [id number] BiPAP if necessary Intubation if necessary (3) NELIDA (acute kidney injury) Current Visit: No Status: Acute Plan to address problem: Secondary to vasomotor nephropathy Possible underlying chronic kidney disease (4) Hypertension Current Visit: Yes Status: Chronic Qualifiers: Hypertension type: primary hypertension Qualified Code(s): I10 - Essential (primary) hypertension Plan to address problem: Continue antihypertensives and adjust medications (5) Acute hypernatremia Current Visit: Yes Status: Acute Plan to address problem: Half-normal saline for now (6) CAD (coronary artery disease) Current Visit: Yes Status: Chronic Qualifiers: Coronary Disease-Associated Artery/Lesion type: [place] artery [place] vs. transplanted heart: [place] heart Plan to address problem: Continue aspirin and a small (7) DVT prophylaxis Current Visit: Yes Status: Acute Plan to address problem: On heparin GI prophylaxis Subjective Date of service: 04/28/21 Principal diagnosis: Shortness of breath and wheezing for 2 days Interval history: Daughter into the emergency room for increasing shortness of breath. Patient has been using her nebulizer treatments with no relief. Patient was recently discharged on 7 days ago. Patient continues to have wheezing and severe shortness of breath. No fever or chills. Patient has a history of COPD atrial fibrillation and hypertension. No fever or chills. No exposure to coronavirus. - Past Medical History -- Hypertension: Yes --CVA: Yes (x 2) --Heart Attack/AMI: Yes --Congestive Heart Failure: Yes --Arthritis: Yes --Asthma: Yes --COPD: Yes ==Additional medical history: Chronic Bronchitis - Surgical History --Pacemaker: Yes Additional Surgical History: Right Knee Surgery , demand pacemaker (90's). Hyst. cataract removal in both eyes, - Social History --Smoking Status: Never Smoker --Substance Use Type: None Review of Systems ROS: Stated complaint: NIRAV Other details as noted in HPI Comment: All other systems reviewed and negative Respiratory: cough, orthopnea, shortness of breath, SOB with exertion, SOB at rest, wheezing Cardiovascular: palpitations. denies: chest pain Gastrointestinal: denies: abdominal pain, nausea, vomiting, diarrhea, constipation, hematemesis, melena, hematochezia Musculoskeletal: denies: back pain Neurological: denies: headache, weakness Objective - Constitutional Vitals: Vital Signs - 12hr 04/28/21 04/28/21 04/28/21 19:31 20:00 20:31 Temperature Pulse Rate 108 H 107 H 109 H Pulse Rate [ Anterior Bilateral Throughout] Respiratory 28 H 23 28 H Rate Respiratory Rate [Anterior Bilateral Throughout] Blood Pressure 147/49 131/81 131/81 Blood Pressure [Left] O2 Sat by Pulse 100 100 99 Oximetry 04/28/21 04/28/21 04/28/21 21:01 21:31 22:01 Temperature Pulse Rate 97 H 91 H 100 H Pulse Rate [ Anterior Bilateral Throughout] Respiratory 21 30 H 34 H Rate Respiratory Rate [Anterior Bilateral Throughout] Blood Pressure 131/81 131/81 131/81 Blood Pressure [Left] O2 Sat by Pulse 100 98 95 Oximetry 04/28/21 04/28/21 04/28/21 22:30 22:32 22:33 Temperature 98.9 F Pulse Rate 106 H Pulse Rate [ 94 H Anterior Bilateral Throughout] Respiratory 20 Rate Respiratory 28 H Rate [Anterior Bilateral Throughout] Blood Pressure Blood Pressure 163/80 [Left] O2 Sat by Pulse 99 Oximetry 04/28/21 04/29/21 04/29/21 23:50 00:58 03:10 Temperature 98.4 F Pulse Rate 92 H 92 H Pulse Rate [ Anterior Bilateral Throughout] Respiratory 18 22 Rate Respiratory Rate [Anterior Bilateral Throughout] Blood Pressure Blood Pressure 126/65 [Left] O2 Sat by Pulse Oximetry 04/29/21 04:00 Temperature 99.2 F Pulse Rate 93 H Pulse Rate [ Anterior Bilateral Throughout] Respiratory 18 Rate Respiratory Rate [Anterior Bilateral Throughout] Blood Pressure Blood Pressure 126/60 [Left] O2 Sat by Pulse Oximetry General appearance: Present: mild distress, well-nourished - EENT Eyes: PERRL, EOM intact ENT: hearing intact, clear oral mucosa Ears: bilateral: normal - Neck Neck: supple, normal ROM - Respiratory Respiratory effort: normal Respiratory: bilateral: CTA, diminished, rhonchi, wheezing - Breasts Breasts: normal - Cardiovascular Heart rate: 78 Rhythm: regular Heart Sounds: Present: S1 & S2. Absent: gallop, rub Extremities: pulses intact, No edema, normal color, Full ROM - Gastrointestinal General gastrointestinal: Present: soft, non-tender, non-distended, normal bowel sounds - Genitourinary Female genitourinary: normal - Integumentary Integumentary: clear, warm, dry - Musculoskeletal Musculoskeletal: 1, strength equal bilaterally - Neurologic Neurologic: moves all extremities - Psychiatric Psychiatric: memory intact, appropriate mood/affect, intact judgment & insight - Labs CBC & Chem 7: 04/28/21 14:58 04/28/21 14:58 Labs: Abnormal lab results 04/28/21 04/28/21 04/28/21 Range/Units 14:58 14:58 14:58 RBC 3.09 L (3.65-5.03) M/mm3 Hgb 8.7 L (10.1-14.3) gm/dl Hct 27.7 L (30.3-42.9) % RDW 17.5 H (13.2-15.2) % Lymph % (Auto) 13.2 L (13.4-35.0) % [place] % (Auto) 9.8 H (0.0-7.3) % Lymph # (Auto) 0.9 L (1.2-5.4) K/mm3 Seg Neutrophils % 75.1 H (40.0-70.0) % APTT 23.1 L (24.2-36.6) Sec. Sodium 147 H (137-145) mmol/L Carbon Dioxide 33 H (22-30) mmol/L BUN 44 H (7-17) mg/dL Creatinine 2.8 H (0.6-1.2) mg/dL Calcium 8.3 L (8.4-10.2) mg/dL Troponin T 0.042 H (0.00-0.029) ng/mL NT-Pro-B Natriuret Pep (0-900) pg/mL Triglycerides 163 H (2-149) mg/dL Cholesterol 228 H (50-199) mg/dL HDL Cholesterol 100 H (40-59) mg/dL 04/28/21 04/28/21 Range/Units 14:58 17:30 RBC (3.65-5.03) M/mm3 Hgb (10.1-14.3) gm/dl Hct (30.3-42.9) % RDW (13.2-15.2) % Lymph % (Auto) (13.4-35.0) % [place] % (Auto) (0.0-7.3) % Lymph # (Auto) (1.2-5.4) K/mm3 Seg Neutrophils % (40.0-70.0) % APTT (24.2-36.6) Sec. Sodium (137-145) mmol/L Carbon Dioxide (22-30) mmol/L BUN (7-17) mg/dL Creatinine (0.6-1.2) mg/dL Calcium (8.4-10.2) mg/dL Troponin T 0.032 H D (0.00-0.029) ng/mL NT-Pro-B Natriuret Pep 962.7 H (0-900) pg/mL Triglycerides (2-149) mg/dL Cholesterol (50-199) mg/dL HDL Cholesterol (40-59) mg/dL HEART Score - HEART Score Troponin: Troponin T 0.032 ng/mL (0.00-0.029) H D 04/28/21 17:30
[2021-04-29] MEDS: IPRATROPIUM/ALBUTEROL SULFATE 3 ML AMPUL.NEB IH SCH ×4 (09:11→20:40)
[2021-04-29] MEDS: ARFORMOTEROL 15 MCG/2 ML NEBU IH SCH ×2 (09:11→20:40)
[2021-04-29] MEDS: BUDESONIDE 0.5 MG/2 ML NEBU IH SCH ×2 (09:12→20:39)
[2021-04-29] MEDS: FAMOTIDINE 10 MG TAB PO SCH (09:18)
[2021-04-29] MEDS: dilTIAZem CD 180 MG CAP PO SCH (09:18)
[2021-04-29] MEDS ORDERED: FAMOTIDINE 20 MG TAB PO SCH (10:00)
[2021-04-29] MEDS: oxyCODONE /ACETAMINOPHEN 5-325MG TAB PO PRN (17:02)
--- NOTE | 2021-04-29 17:34 | Progress Note ---
Assessment and Plan - Patient Problems (1) Acute respiratory failure with hypoxia Current Visit: Yes Status: Acute Plan to address problem: Acute respiratory failure on chronic respiratory failure. Patient sees Dr. Castillo. Was recently placed on hospice service Discussed with son wishes to continue hospice Patient DNR status will be discussed with son O2 supplementation Steroids nebulizers empiric antibiotics (2) COPD exacerbation Current Visit: Yes Status: Acute Plan to address problem: Empiric antibiotics for acute bronchitis Steroids Nebulizers O2 supplementation (3) CAD (coronary artery disease) Current Visit: Yes Status: Chronic Qualifiers: Coronary Disease-Associated Artery/Lesion type: [place] artery [place] vs. transplanted heart: [place] heart Plan to address problem: Patient is chest pain-free now has risk factors that would make patient hospice appropriate not a candidate for any invasive or surgical procedures. (4) NELIDA (acute kidney injury) Current Visit: No Status: Acute Plan to address problem: Acute kidney injury suspect chronic kidney disease (5) HTN (hypertension) Current Visit: No Status: Acute Qualifiers: Hypertension type: essential hypertension Plan to address problem: Remains fairly well controlled continue diltiazem. Subjective Date of service: 04/29/21 Principal diagnosis: Shortness of breath and wheezing for 2 days Interval history: 80-year-old female with a history of chronic lung failure secondary to COPD presents with an acute episode of wheezing and shortness of breath. Patient was recently discharge from the hospital several days ago with similar symptoms diagnosed with COPD exacerbation. Patient comes in this time with similar symptoms of shortness of breath dyspnea on exertion. Patient has home O2 and stated she took albuterol and did not help at that time. Patient was therefore admitted for acute respiratory failure. At this time patient is very weak. Patient sees Dr. Castillo. On further history it was found that patient was scheduled for hospice services to be picked up yesterday. Patient however could not tolerate acute symptoms and decided to call 911 and that is why she is here. Patient would like to think more about hospice at this time. Patient states she is improved but states that she needs to get home she will be short of breath again. Objective - Constitutional Vitals: Vital Signs - 12hr 04/29/21 04/29/21 04/29/21 08:11 09:11 13:57 Temperature 99.6 F Pulse Rate 97 H Pulse Rate [ 78 88 Anterior Bilateral Throughout] Respiratory 19 Rate Respiratory 20 20 Rate [Anterior Bilateral Throughout] Blood Pressure 128/80 O2 Sat by Pulse 94 97 Oximetry General appearance: Present: mild distress - EENT Eyes: PERRL, EOM intact ENT: hearing intact - Respiratory Respiratory: bilateral: diminished, rhonchi (Labored breathing with minimal m ovement.) - Cardiovascular Rhythm: regular Heart Sounds: Present: S1 & S2. Absent: gallop, rub Extremities: pulses intact, No edema, normal color, Full ROM - Gastrointestinal General gastrointestinal: Present: non-tender, normal bowel sounds - Musculoskeletal Musculoskeletal: generalized weakness - Neurologic Neurologic: moves all extremities - Psychiatric Psychiatric: appropriate mood/affect, intact judgment & insight - Labs CBC & Chem 7: 04/28/21 14:58 04/28/21 14:58 Labs: Abnormal lab results 04/28/21 Range/Units 17:30 Troponin T 0.032 H D (0.00-0.029) ng/mL HEART Score - HEART Score Troponin: Troponin T 0.032 ng/mL (0.00-0.029) H D 04/28/21 17:30
[2021-04-30] MEDS: methylPREDNISolone Sod Succinate 125 MG/2 ML INJ IV SCH ×3 (05:51→22:30)
--- NOTE | 2021-04-30 09:45 | Electrocardiograph Report ---
[facility] Test Date: 2021-04-28 Test Time: 14:30:46 Pat Name: DANN STALLINGS Department: Room: A473 1 Gender: F [employer]: TV : 1940 Requested By: KAY GARCIA Order Number: [id number] Reading MD: Charli Ortega Measurements Intervals [place] Rate: 115 P: 71 IN: 146 QRS: -82 QRSD: 126 T: 77 QT: 346 QTc: 479 Interpretive Statements Sinus tachycardia Supraventricular bigeminy RBBB and LAFB Probable left ventricular hypertrophy Compared to ECG 04/18/2021 17:39:54 Atrial premature complex(es) now present Sinus rhythm no longer present Electronically Signed On 04-30-2021 9:45:14 EDT by Charli Ortega
[2021-04-30] MEDS: dilTIAZem CD 180 MG CAP PO SCH (11:00)
[2021-04-30] MEDS: HEPARIN 5,000 UNIT/1 ML VIAL SUB-Q SCH ×2 (11:00→22:30)
[2021-04-30] MEDS: FAMOTIDINE 10 MG TAB PO SCH (11:00)
[2021-04-30] MEDS: BUDESONIDE 0.5 MG/2 ML NEBU IH SCH ×3 (11:04→19:41)
[2021-04-30] MEDS: IPRATROPIUM/ALBUTEROL SULFATE 3 ML AMPUL.NEB IH SCH ×4 (11:04→19:41)
[2021-04-30] MEDS: ARFORMOTEROL 15 MCG/2 ML NEBU IH SCH ×3 (11:04→19:41)
--- NOTE | 2021-04-30 12:07 | Progress Note ---
Assessment and Plan - Patient Problems (1) Acute respiratory failure with hypoxia Current Visit: Yes Status: Acute Plan to address problem: Acute respiratory failure on chronic respiratory failure. Patient sees Dr. Castillo. Was recently placed on hospice service Discussed with son wishes to continue hospice Patient DNR status will be discussed with son O2 supplementation Steroids nebulizers empiric antibiotics Patient lungs most likely not get any better I believe patient is hospice appropriate. Patient has dyspnea on exertion dyspnea with conversation O2 dependent at 4 L. PPS is less than 50 (2) COPD exacerbation Current Visit: Yes Status: Acute Plan to address problem: Empiric antibiotics for acute bronchitis Steroids Nebulizers O2 supplementation (3) CAD (coronary artery disease) Current Visit: Yes Status: Chronic Qualifiers: Coronary Disease-Associated Artery/Lesion type: [place] artery [place] vs. transplanted heart: [place] heart Plan to address problem: Patient is chest pain-free now has risk factors that would make patient hospice appropriate not a candidate for any invasive or surgical procedures. (4) NELIDA (acute kidney injury) Current Visit: No Status: Acute Plan to address problem: Acute kidney injury suspect chronic kidney disease Chronic kidney disease patient is hospice appropriate. State chronic kidney disease stage III (5) HTN (hypertension) Current Visit: No Status: Acute Qualifiers: Hypertension type: essential hypertension Plan to address problem: Remains fairly well controlled continue diltiazem. Subjective Date of service: 04/30/21 Principal diagnosis: Shortness of breath and wheezing for 2 days Interval history: 80-year-old female with a history of chronic lung failure secondary to COPD presents with an acute episode of wheezing and shortness of breath. Patient was recently discharge from the hospital several days ago with similar symptoms diagnosed with COPD exacerbation. Patient comes in this time with similar symptoms of shortness of breath dyspnea on exertion. Patient has home O2 and stated she took albuterol and did not help at that time. Patient was therefore admitted for acute respiratory failure. At this time patient is very weak. Patient sees Dr. Castillo. On further history it was found that patient was scheduled for hospice services to be picked up yesterday. Patient however could not tolerate acute symptoms and decided to call 911 and that is why she is here. Patient would like to think more about hospice at this time. Patient states she is improved but states that she needs to get home she will be short of breath again. 04/30/2021- Patient appears to be much better today. Still decreased breath sounds wheezing. Spoke to patient and family about hospice. Patient would like to continue hospice services. Plan anticipated discharge in a.m. with hospice. Case management states patient shows [facility] Objective - Constitutional Vitals: Vital Signs - 12hr 04/30/21 04/30/21 04/30/21 03:24 04:24 07:29 Temperature 98.2 F 98.5 F Pulse Rate 75 92 H Respiratory 18 20 Rate Blood Pressure 111/45 135/79 O2 Sat by Pulse 99 98 100 Oximetry 04/30/21 10:00 Temperature Pulse Rate 83 Respiratory 20 Rate Blood Pressure O2 Sat by Pulse 95 Oximetry General appearance: Present: no acute distress - EENT Eyes: PERRL - Neck Neck: supple, normal ROM - Respiratory Respiratory: bilateral: diminished, rhonchi Extremities: pulses intact, No edema, normal color, Full ROM - Gastrointestinal General gastrointestinal: Present: soft, non-tender, non-distended, normal bowel sounds - Neurologic Neurologic: CNII-XII intact, moves all extremities - Psychiatric Psychiatric: appropriate mood/affect - Labs CBC & Chem 7: 04/28/21 14:58 04/28/21 14:58 HEART Score - HEART Score Troponin: Troponin T 0.032 ng/mL (0.00-0.029) H D 04/28/21 17:30
[2021-04-30] MEDS: POLYETHYLENE GLYCOL 3350 17 GM POWDER PO PRN (22:29)
[2021-05-01] MEDS: methylPREDNISolone Sod Succinate 125 MG/2 ML INJ IV SCH ×3 (07:40→22:13)
--- NOTE | 2021-05-01 08:47 | Discharge Summary ---
Providers - Providers Date of Admission: 04/28/21 17:00 Date of discharge: 05/01/21 Attending physician: BRITNI REYNAGA 04/29/21 12:02 Physical Therapy Evaluation and Treat [CONS] Routine Comment: pt. walks with walker Reason For Exam: PT to joesphnd treat for abnormal gait 04/29/21 12:03 Occupational Therapy Evaluate and Treat [CONS] Routine Comment: pt. stated she has difficult with ADLs Reason For Exam: OT to evkirbynd treat Primary care physician: LOG GRADER Hospitalization Condition: Stable Hospital course: 80-year-old female with a history of chronic lung failure secondary to COPD presents with an acute episode of wheezing and shortness of breath. Patient was recently discharge from the hospital several days ago with similar symptoms diagnosed with COPD exacerbation. Patient comes in this time with similar symptoms of shortness of breath dyspnea on exertion. Patient has home O2 and stated she took albuterol and did not help at that time. Patient was therefore admitted for acute respiratory failure. Patient was started on empiric antibiotics. Nebulizers every 6 hours as well as IV steroids Solu-Medrol. Pat ient returned to baseline in approximately 48 hours. It was noted however that patient had at least gold stage C COPD and symptoms unlikely to improve. Patient was placed on hospice services and currently is still a candidate for hospice services. Patient has dyspnea at rest, dyspnea with conversation and dyspnea with minimal exertion including getting out of bed. Patient has lost undocumented amount of weight. Patient's had decreased functional status PPS is about 40. Patient meets most LCD's for hospice. Patient also wants to return to hospice. States son is taking care of that. Patient stable to return hospice services today. phone paty english message [phone] Patient stated her son was taking care of everything and that is what she wishes. I did give Ms. English a courtesy call however. Disposition: [id number] (MED FACILITY) Final Discharge Diagnosis (Prints w/discharge instructions): Acute hypoxic respiratory failure - Discharge Diagnoses (1) Acute respiratory failure with hypoxia Status: Acute Comment: Can [place] to COPD exacerbation. Patient now at baseline. We will continue p.o. steroids for now. Continue metered-dose inhalers. Patient wants to return to hospice services. They will determine whether or not patient should remain on LABA and/or steroid inhalers. (2) COPD exacerbation Status: Acute Comment: Advanced COPD. End-stage COPD return with hospice services. (3) CAD (coronary artery disease) Status: Chronic Qualifiers: Coronary Disease-Associated Artery/Lesion type: [place] artery [place] vs. transplanted heart: [place] heart Comment: Has remained chest pain-free throughout stay. Patient is not a candidate for any surgical intervention any invasive treatment. This is a comorbid illness for her COPD (4) NELIDA (acute kidney injury) Status: Resolved (5) HTN (hypertension) Status: Chronic Qualifiers: Hypertension type: primary hypertension Qualified Code(s): I10 - Essential (primary) hypertension Core Measure Documentation - Palliative Care Palliative Care/ Comfort Measures: Not Applicable - Core Measures Any of the following diagnoses?: none Exam - Constitutional Vitals: Temp Pulse Resp BP Pulse Ox 98.8 F 94 H 20 126/65 100 05/01/21 07:43 05/01/21 07:43 05/01/21 07:43 05/01/21 07:43 05/01/21 07:43 General appearance: Present: no acute distress - EENT Eyes: Present: PERRL, EOM intact ENT: clear oral mucosa, hearing decreased - Respiratory Respiratory effort: other (Labored at times with movement) Respiratory: bilateral: diminished Details: Dyspnea on exertion - Cardiovascular Rhythm: regular - Extremities Extremities: pulses symmetrical, No edema - Abdominal General gastrointestinal: Present: soft, non-tender, non-distended, normal bowel sounds - Musculoskeletal Musculoskeletal: generalized weakness - Psychiatric Psychiatric: appropriate mood/affect Plan Activity: fall precautions Weight Bearing Status: Partial Weight Bearing Diet: low cholesterol, low salt Follow up with: PRIMARY CARE, [Primary Care Provider] - 7 Days Prescriptions: predniSONE [Deltasone] 20 mg PO QDAY #60 tab levoFLOXacin [Levaquin TAB] 500 mg PO Q48H #4 tablet ALBUTEROL NEB's [Proventil 0.083% NEBS] 2.5 mg IH Q3HRT PRN #10 nebu PRN Reason: Wheezing Mirtazapine [Remeron 30mg TAB] 30 mg PO QHS PRN #30 tablet PRN Reason: Insomnia
[2021-05-01] MEDS: BUDESONIDE 0.5 MG/2 ML NEBU IH SCH ×2 (08:56→20:25)
[2021-05-01] MEDS: ARFORMOTEROL 15 MCG/2 ML NEBU IH SCH ×2 (08:56→20:25)
[2021-05-01] MEDS: IPRATROPIUM/ALBUTEROL SULFATE 3 ML AMPUL.NEB IH SCH (08:56)
[2021-05-01] MEDS: dilTIAZem CD 180 MG CAP PO SCH (10:41)
[2021-05-01] MEDS: FAMOTIDINE 10 MG TAB PO SCH (10:41)
[2021-05-01] MEDS: HEPARIN 5,000 UNIT/1 ML VIAL SUB-Q SCH ×2 (10:42→22:14)
--- NOTE | 2021-05-01 11:26 | Event Note ---
Date: 05/01/21 We will hold discharge at this time. Have discussing with son. Sister went back to [place] who was helping taking care of patient son is in [facility] and the other daughter is also out of state. Patient really has nowhere to go at this time. Plan is for inpatient hospice versus half-way facility.
[2021-05-01] MEDS: MORPHINE 2 MG/1 ML INJ IV PRN (18:38)
[2021-05-01] MEDS: POLYETHYLENE GLYCOL 3350 17 GM POWDER PO PRN (22:13)
[2021-05-01] MEDS: oxyCODONE /ACETAMINOPHEN 5-325MG TAB PO PRN (22:14)
[2021-05-02] MEDS: methylPREDNISolone Sod Succinate 125 MG/2 ML INJ IV SCH (05:59)
[2021-05-02] MEDS: IPRATROPIUM/ALBUTEROL SULFATE 3 ML AMPUL.NEB IH SCH ×5 (08:38→15:29)
[2021-05-02] MEDS: ARFORMOTEROL 15 MCG/2 ML NEBU IH SCH (08:40)
[2021-05-02] MEDS: BUDESONIDE 0.5 MG/2 ML NEBU IH SCH (08:40)
--- NOTE | 2021-05-02 10:03 | Progress Note ---
Assessment and Plan - Patient Problems (1) Acute respiratory failure with hypoxia Current Visit: Yes Status: Acute Plan to address problem: Acute respiratory failure on chronic respiratory failure. Patient sees Dr. Castillo. Was recently placed on hospice service Discussed with son wishes to continue hospice Patient DNR status will be discussed with son O2 supplementation Steroids nebulizers empiric antibiotics Patient lungs most likely not get any better I believe patient is hospice appropriate. Patient has dyspnea on exertion dyspnea with conversation O2 dependent at 4 L. PPS is less than 50 Awaiting placement hospice services inpatient versus penitentiary facility. (2) COPD exacerbation Current Visit: Yes Status: Acute Plan to address problem: Empiric antibiotics for acute bronchitis Steroids Nebulizers O2 supplementation Patient meets most LCD's for hospice services. Patient has dyspnea at rest. Dyspnea with conversation, decreased functional status. PPS less than 50. Oxygen dependent (3) CAD (coronary artery disease) Current Visit: Yes Status: Chronic Qualifiers: Coronary Disease-Associated Artery/Lesion type: [place] artery [place] vs. transplanted heart: [place] heart Plan to address problem: Patient is chest pain-free now has risk factors that would make patient hospice appropriate not a candidate for any invasive or surgical procedures. (4) NELIDA (acute kidney injury) Current Visit: No Status: Resolved Plan to address problem: Acute kidney injury suspect chronic kidney disease Chronic kidney disease patient is hospice appropriate. State chronic kidney disease stage III (5) HTN (hypertension) Current Visit: No Status: Chronic Qualifiers: Hypertension type: primary hypertension Qualified Code(s): I10 - Essential (primary) hypertension Plan to address problem: Remains fairly well controlled continue diltiazem. Subjective Date of service: 05/02/21 Principal diagnosis: Shortness of breath and wheezing for 2 days Interval history: 80-year-old female with a history of chronic lung failure secondary to COPD presents with an acute episode of wheezing and shortness of breath. Patient was recently discharge from the hospital several days ago with similar symptoms diagnosed with COPD exacerbation. Patient comes in this time with similar symptoms of shortness of breath dyspnea on exertion. Patient has home O2 and stated she took albuterol and did not help at that time. Patient was therefore admitted for acute respiratory failure. At this time patient is very weak. Patient sees Dr. Castillo. On further history it was found that patient was scheduled for hospice services to be picked up yesterday. Patient however could not tolerate acute symptoms and decided to call 911 and that is why she is here. Patient would like to think more about hospice at this time. Patient states she is improved but states that she needs to get home she will be short of breath again. 04/30/2021- Patient appears to be much better today. Still decreased breath sounds wheezing. Spoke to patient and family about hospice. Patient would like to continue hospice services. Plan anticipated discharge in a.m. with hospice. Case management states patient shows [facility] 05/02/2021 Patient without any new concerns today. Feels much improved about her baseline. Her baseline includes dyspnea with minimal exertion. Dyspnea with conversation. Patient went to her purse to look for signs number and became dys pneic. Patient is still wanting hospice services. Case management has maintained excellent communication with patient and family. Plan anticipated discharge to inpatient hospice [facility] versus [facility] versus [facility]itentiary facility Objective - Constitutional Vitals: Vital Signs - 12hr 05/01/21 05/01/21 05/01/21 22:00 22:14 23:04 Temperature 98.4 F Pulse Rate 88 88 Respiratory 20 18 Rate Respiratory 20 Rate [Bilateral Hip] Respiratory 20 Rate [Right Knee] Blood Pressure 120/67 O2 Sat by Pulse 97 98 Oximetry 05/02/21 05/02/21 03:20 08:59 Temperature 97.6 F 97.6 F Pulse Rate 78 40 L Respiratory 18 18 Rate Respiratory Rate [Bilateral Hip] Respiratory Rate [Right Knee] Blood Pressure 142/66 142/71 O2 Sat by Pulse 98 86 Oximetry General appearance: Present: no acute distress - EENT Eyes: PERRL, EOM intact - Respiratory Respiratory: bilateral: diminished, rhonchi, wheezing - Cardiovascular Rhythm: regular Extremities: pulses intact, No edema, normal color, Full ROM - Gastrointestinal General gastrointestinal: Present: soft, non-tender, non-distended, normal bowel sounds - Musculoskeletal Musculoskeletal: generalized weakness - Neurologic Neurologic: moves all extremities - Psychiatric Psychiatric: memory intact, appropriate mood/affect, intact judgment & insight - Labs CBC & Chem 7: 04/28/21 14:58 04/28/21 14:58 HEART Score - HEART Score Troponin: Troponin T 0.032 ng/mL (0.00-0.029) H D 04/28/21 17:30
[2021-05-02] MEDS: dilTIAZem CD 180 MG CAP PO SCH (10:47)
[2021-05-02] MEDS: FAMOTIDINE 10 MG TAB PO SCH (10:47)
[2021-05-02] MEDS: HEPARIN 5,000 UNIT/1 ML VIAL SUB-Q SCH (10:47)
--- NOTE | 2021-05-02 12:30 | Discharge Summary ---
Providers - Providers Date of Admission: 04/28/21 17:00 Date of discharge: 05/02/21 Attending physician: BRITNI REYNAGA 04/29/21 12:02 Physical Therapy Evaluation and Treat [CONS] Routine Comment: pt. walks with walker Reason For Exam: PT to joesphnd treat for abnormal gait 04/29/21 12:03 Occupational Therapy Evaluate and Treat [CONS] Routine Comment: pt. stated she has difficult with ADLs Reason For Exam: OT to roscoe treat Primary care physician: PROBE OPERATOR Hospitalization Condition: Stable Hospital course: Patient did fine a bit today inpatient hospice with lj guzman 80-year-old female with a history of chronic lung failure secondary to COPD presents with an acute episode of wheezing and shortness of breath. Patient was recently discharge from the hospital several days ago with similar symptoms diagnosed with COPD exacerbation. Patient comes in this time with similar symptoms of shortness of breath dyspnea on exertion. Patient has home O2 and stated she took albuterol and did not help at that time. Patient was therefore admitted for acute respiratory failure. Patient was started on empiric antibiotics. Nebulizers every 6 hours as well as IV steroids Solu-Medrol. Patient returned to baseline in approximately 48 hours. It was noted however that patient had at least gold stage C COPD and symptoms unlikely to improve. Patient was placed on hospice services and currently is still a candidate for hospice services. Patient has dyspnea at rest, dyspnea with conversation and dyspnea with minimal exertion including getting out of bed. Patient has lost undocumented amount of weight. Patient's had decreased functional status PPS is about 40. Patient meets most LCD's for hospice. Patient also wants to return to hospice. States son is taking care of that. Patient stable to return hospice services today. Disposition: [facility] (MED FACILITY) Final Discharge Diagnosis (Prints w/discharge instructions): Acute hypoxic respiratory failure - Discharge Diagnoses (1) Acute respiratory failure with hypoxia Status: Acute Comment: Can Ever to COPD exacerbation. Patient now at baseline. We will continue p.o. steroids for now. Continue metered-dose inhalers. Patient wants to return to hospice services. They will determine whether or not patient should remain on LABA and/or steroid inhalers. (2) COPD exacerbation Status: Acute Comment: Advanced COPD. End-stage COPD return with hospice services. (3) CAD (coronary artery disease) Status: Chronic Qualifiers: Coronary Disease-Associated Artery/Lesion type: [place] artery [place] vs. transplanted heart: [place] heart Comment: Has remained chest pain-free throughout stay. Patient is not a candidate for any surgical intervention any invasive treatment. This is a comorbid illness for her COPD (4) NELIDA (acute kidney injury) Status: Resolved (5) HTN (hypertension) Status: Chronic Qualifiers: Hypertension type: primary hypertension Qualified Code(s): I10 - Essential (primary) hypertension Core Measure Documentation - Palliative Care Palliative Care/ Comfort Measures: Hospice Care - Core Measures Any of the following diagnoses?: none Exam - Constitutional Vitals: Temp Pulse Resp BP Pulse Ox 97.6 F 40 L 22 142/71 97 05/02/21 08:59 05/02/21 08:59 05/02/21 10:00 05/02/21 08:59 05/02/21 10:00 General appearance: Present: no acute distress, well-nourished - EENT Eyes: Present: PERRL ENT: hearing intact, clear oral mucosa - Neck Neck: Present: supple, normal ROM - Respiratory Respiratory effort: normal Respiratory: bilateral: CTA, diminished (Poor inspiratory effort), rhonchi (Rhonchi at bases although improved) - Cardiovascular Heart Sounds: Present: S1 & S2. Absent: rub, click - Extremities Extremities: pulses symmetrical, No edema Peripheral Pulses: within normal limits - Abdominal General gastrointestinal: Present: soft, non-tender, non-distended, normal bowel sounds Female genitourinary: Present: normal - Integumentary Integumentary: Present: clear, warm, dry - Musculoskeletal Musculoskeletal: gait normal, strength equal bilaterally - Psychiatric Psychiatric: appropriate mood/affect, intact judgment & insight - Neurologic Neurologic: CNII-XII intact, moves all extremities Plan Activity: fall precautions Weight Bearing Status: Weight Bear as Tolerated Diet: low cholesterol Follow up with: PRIMARY CARE, [Primary Care Provider] - 7 Days Prescriptions: predniSONE [Deltasone] 20 mg PO QDAY #60 tab levoFLOXacin [Levaquin TAB] 500 mg PO Q48H #4 tablet ALBUTEROL NEB's [Proventil 0.083% NEBS] 2.5 mg IH Q3HRT PRN #10 nebu PRN Reason: Wheezing Mirtazapine [Remeron 30mg TAB] 30 mg PO QHS PRN #30 tablet PRN Reason: Insomnia
[2021-05-02 12:38] VITALS: BP 142/68
--- NOTE | 2021-05-05 11:08 | Electrocardiograph Report ---
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
== END 2021-05-02 12:54 | disposition hospice, inpatient (51) ==
LOC: ED 14:12 → 4A 17:00
PROVIDERS: ADMIT Internal Medicine; ATTEND Internal Medicine
DX: J96.01 Acute respiratory failure with hypoxia (principal); J44.1 Chronic obstructive pulmonary disease with (acute) exacerbation; A00.0 Cholera due to Vibrio cholerae 01, biovar cholerae; I11.0 Hypertensive heart disease with heart failure; I50.9 Heart failure, unspecified; N17.9 Acute kidney failure, unspecified; E87.0 Hyperosmolality and hypernatremia; M19.90 Unspecified osteoarthritis, unspecified site; I25.10 Atherosclerotic heart disease of native coronary artery without angina pectoris; Z95.0 Presence of cardiac pacemaker; Z86.73 Personal history of transient ischemic attack (TIA), and cerebral infarction without residual deficits; Z79.899 Other long term (current) drug therapy; Z98.890 Other specified postprocedural states; Z98.41 Cataract extraction status, right eye; Z98.42 Cataract extraction status, left eye
CPT/HCPCS: 36415; 71045; 80048; 80061; 83036; 83735; 83880; 84484; 85025; 85610; 85730; 87040; 93005; 94640; 96365; 96366; 96372; 96375; 96376; 97161; 99291; G0378; J1644; J1956; J2270; J2930; 94644